=== PATIENT | female | born 1990 | race Caucasian/White ===

== ENCOUNTER → 2021-06-26 12:38 | Outpatient (CLI) | payer MEDICAID, SELFPAY ==
--- NOTE | 2021-06-26 12:45 | RAD_ITS ---
STUDY: X-RAY - LUMBAR SPINE REASON FOR EXAM: Female, 31 years old. LUMBAR SPRAIN TECHNIQUE: 5 view(s) of the lumbar spine were obtained. COMPARISON: None FINDINGS: Normal lumbar lordosis. There is no substantial scoliosis. There is a normal alignment of the vertebrae. Normal vertebral bodies and endplates. Normal disc space heights. The soft tissue structures are unremarkable. RAD/L/S Spine Min 4 Views IMPRESSION: Normal x-ray examination of the lumbar spine. Electronically Signed: Josefa Thomson MD at 15:04 EDT Tel , Service support ,
== END ==
PROVIDERS: Referring Provider Physician Assistant; Visit Provider Physician Assistant
DX: M54.5 Low back pain (principal)
CPT/HCPCS: 72110

== ENCOUNTER 2021-06-27 15:36 | Emergency (ER) | payer MEDICAID, SELFPAY ==
[2021-06-27 15:40] VITALS: BP 113/83; PULSE 96; RESP 16; TEMP 37.7; O2SAT 97; BMI 35.9
--- NOTE | 2021-06-27 16:16 | ED.VIS.BACK ---
HPI History of Present Illness Chief Complaint: Back Narrative Narrative: Patient with past history of chronic back pain, and pain management, fibromyalgia, presents with numbness of her right hip and back pain that she has had since Thursday. This was 4 days ago. She states that she presents at the suggestion of her pain management doctor. She had x-rays of her back performed yesterday. She was told that her x-rays are normal. She has been having increasing pain in her low back and buttocks. She states her right hip feels numb. She has been taking Tylenol and ibuprofen without relief. She denies any dysuria or hematuria. She states that she got over a bladder infection and a kidney stone last week. She has constant pain. At times it is worse with movement. She denies any fevers or chills. No loss of bowel or bladder. No saddle anesthesia. [facility] Medical History (Updated 06/27/21 @ 17:00 by Sonny Alvarez) Fibromyalgia History of cervical cancer History of uterine cancer Kidney stone Home Medications cyclobenzaprine 10 mg PO BID PRN #10 tab 06/27/21 [Rx Last Taken Unknown] Allergy/AdvReac Type Severity Reaction Status Date / Time amitriptyline Allergy MUSCLE Verified 06/27/21 15:39 SPASMS Bleach (Sodium Hypochlorite) Allergy Hives Verified 06/27/21 15:39 codeine Allergy Hives Verified 06/27/21 15:39 ketorolac [From Toradol] Allergy Itching Verified 06/27/21 15:39 nitrofurantoin Allergy Anaphylaxis Verified 06/27/21 15:39 [From Macrodantin] doxycycline AdvReac Vomiting Verified 06/27/21 15:39 Surgical History (Updated 06/27/21 @ 16:57 by Sonny Alvarez) History of hysterectomy Hx of cholecystectomy Social History Smoking Status: Unknown if ever smoked ROS ROS ED ROS Narrative Constitutional: No fever, no chills. HEENT: No sore throat. No neck pain. No loss of vision. No rhinorrhea. Cardiovascular: No chest pain. No palpitations. No pedal edema. Respiratory: No cough, no shortness of breath. Abdominal: No abdominal pain. No nausea. No vomiting. Genitourinary: No dysuria. No hematuria. Musculoskeletal: No myalgias. No arthralgias. Positive low back and right sciatic pain. Neurologic: No headaches. No dizziness. No lightheadedness. Positive paresthesias of right hip. Skin: No rash. No change in color. Psychiatric: No depression. No anxiety. EXAM Physical Exam Narrative Exam Narrative: Afebrile. Vital signs noted. HEENT: Normocephalic. Atraumatic. PERRL, EOMI. Neck soft and supple. No point tenderness or step off. Cardiovascular: Regular rate and rhythm. No murmurs, rubs, or gallops appreciated. Respiratory: No tachypnea. Lungs clear to auscultation bilaterally. Gastrointestinal: Abdomen soft, nontender, with normoactive bowel sounds. No rebound or guarding. Neurological: Awake. Alert. Nonfocal, nonlateralizing. DTRs equal and symmetric. Full range of motion right hip and right knee. Positive flexion and extension mechanisms intact of right hip and right knee. Palpable dorsalis pedis pulse. EHL intact bilaterally. Straight leg raising negative bilaterally. Mild tenderness to palpation right sciatic notch. Skin: No rash. Normal color. No pallor. Musculoskeletal: No pedal edema. Full range of motion extremities. No vertebral point tenderness or bony step-off. Const Vital Signs: 06/27/21 15:40 06/27/21 16:50 06/27/21 17:24 Temperature 99.8 F H Temperature Source Temporal Pulse Rate 96 Respiratory Rate 16 16 18 Blood Pressure 113/83 H Blood Pressure Mean 93 Pulse Ox 97 Oxygen Delivery Method Room Air MDM MDM MDM Narrative Medical decision making narrative: There are no red flag signs for cauda equina. I do not feel that x-rays are indicated. She has not had any trauma to her back, and additionally she states she had them performed as an outpatient yesterday. I do not feel that emergent MRI is indicated either. I was going to give her intramuscular injections of Toradol and Norflex, however she list Toradol as an allergy, although she takes oral ibuprofen. As she is in pain management, she will follow up with her pain management doctor. I do not feel narcotic pain medications are indicated. I do feel that she is having lumbar radicular signs/sciatica. I feel she be discharged safely home with follow-up to pain management and/or her primary care physician. She states that she is awaiting physical therapy approval by her insurance. She was told that she should follow up with physical therapy, and get her MRI performed. I do feel that this is more of a chronic problem as she states that she has had problems with her back since 2014. She was able to ambulate out of the emergency department. Disposition is discharged home in stable condition. Discharge Plan Triage Chief Complaint: Back ED Provider: Hayder Hudson Dx/Rx/DC Orders Clinical Impression: Right lumbar radiculopathy, Sciatica Instructions: Relieving Back Pain, Back Exercises: Hip Rotator Stretch, Back Exercises: Knee Lift, Sciatica, ED Back Pain (Acute or Chronic) Prescriptions: New cyclobenzaprine 10 mg tablet 10 mg PO BID PRN (Reason: muscle spasm) Qty: 10 RF: 0 Primary Care Provider: Care Physician,No Primary Referrals: [facility] Doctor,Out of [NON-STAFF] - Disposition Disposition: Home, Self Care Discharge Date/Time: 06/27/21 17:24
[2021-06-27 16:50] VITALS: RESP 16
[2021-06-27] MEDS: Orphenadrine 60 MG/2 ML Ampul IM (16:52)
[2021-06-27 17:24] VITALS: RESP 18
== END 2021-06-27 17:24 | disposition home or self-care (01) ==
LOC: ED 16:39
PROVIDERS: Emergency Provider Emergency Medicine
DX: M54.16 Radiculopathy, lumbar region (principal); M54.30 Sciatica, unspecified side; Z85.42 Personal history of malignant neoplasm of other parts of uterus; Z85.41 Personal history of malignant neoplasm of cervix uteri
CPT/HCPCS: 96372; 99282

== ENCOUNTER 2021-08-08 10:00 | Outpatient (RCR) | payer MEDICAID, SELFPAY ==
--- NOTE | 2021-06-13 16:44 | HP.PTEVAL_ITS ---
Patient's Visit Information JOVANNI EDMOND is a 30 year old F referred to Physical Therapy by MANDY BRAY with a diagnosis of L ankle sprain. Date of Evaluation: 06/13/21 Physical Therapist: Gage Barakat, DPT, OCS, CSCS - Visit Plan Frequency: 2-3x /Week Duration: 4-6 Weeks Plan: 2x/week for 4-6 weeks for... 1. manual mobs a, STM and PROM to R ankle progressing to AROM exercises, strength of B ankles and gait training/proprioception ex. - Subjective R ankle hairline fracture back in March due to weak ankles as they roll alot and often sometimes when just walking. Was walking to car in March stepping down a step and ankle adn foot went opposite directions and swelled up right away. Went to ER and referred to ortho. Put in a walking boot for 3 weeks and then just an alpesh bandage and airsplint for a week then just mild ankle brace adn PT. Last visit was early May. Not getting much better. Was sitting around last week and inside of leg got numby, lateral ankle still hurts alot as do both knees. Pain in the ankle is 5/10 much of time and worse to 8/10 if on it too much. House chores make it hurt. Cannot work right now. Ankle and depression keep her from working. Doesn't think she can work and may qualify for SSI due to mental issues. Sleeping OK. Hard to get into tub as she has to step in, needs someone with her. Cannot carry laundry baskets up and down steps as it hurts too much and worried about it turning on her. - Pain R ankle Pain Intensity (Out of 10): 5 Pain Intensity Range: 5, 8 - Objective R ankle brace in place and donned adn doffed I. Walks slowy back to eval room I antalgic on R. Trasnfers I. Short L step length. AROM L LE WNL. R hip and knee WFL, R ankle DF -18, tends to only movve toes with requested DF, PROM DF -6 with pain. Inv and ev slow but able actively with functional ROM and painful end range. PF painful at 45. Toes and metatarsals moving well on R, only ankle is stiff. reflexes 2/3 patella and achilles. Sensation LE WNL to gross light touch. unable to do talar tilt as it is hard for her to relax. Tender to touch lateral ankle ligaments generaly on R ankle. Only slightly swollen, - homans. 3/5 strength R ankle in comfortable ROM, 4 knee and 4- hip. L ankle 4 in all directions and 4 knee and hip. - Goals Goal 1:: 4 degrees DF adn full aROM ankle otherwise without pain Goal Time Frame: 4-6 Weeks Goal 2:: walk without gait deviations without pain Goal Time Frame: 4-6 Weeks Goal 3:: steps reciprocally without rail Goal Time Frame: 4-6 Weeks Goal 4:: I appropriate HEP for ankle strength B and proprioception. Goal Time Frame: 4-6 Weeks Goal 5:: 55 LEFS score to show improved mobility. Goal Time Frame: 4-6 Weeks - Rehabilitation Potential Physical Therapy Diagnosis: L ankle sprain and mobility deficits. Rehabilitation Potential: Fair - Anticipated Interventions Patient/Client Instruction: Educate patient on: Condition, Plan of Care For the Purpose of:: To decrease pain, To increase ROM, To improve muscle performance and motor function, To increase tolerance to activity/condition/position, To improve ability of physical actions for home/community/work/leisure Therapeutic Exercise to Include: Strength training, Balance training, Flexibilty training, Gait and locomotor training, Passive ROM, Active ROM For the Purpose of:: To decrease pain, To increase ROM, To improve nutrient delivery to tissue, To improve muscle performance and motor function, To increase tolerance to activity/condition/position, To improve ability of physical actions for home/community/work/leisure Manual Therapy Techniques to Include: Mobilization, Soft tissue mobilization For the Purpose of:: To decrease pain, To decrease swelling/inflammation, To increase ROM, To improve muscle performance and motor function, To increase tolerance to activity/condition/position Cryotherapy (ice pack, ice massage): Yes For the Purpose of:: To decrease swelling/inflammation Thank you for the opportunity to evaluate your patient. For Medicare and Medicare HMO plans, please review the plan of care and approve it. It will need to be FAXED BACK to us at [phone] for Medicare purposes. For Medicare only, by signing this I certify the plan of care. Please let me know if there are questions or concerns regarding this plan of care. Physician Signature: Date:
--- NOTE | 2021-08-08 10:56 | HP.PTREVAL ---
MANDY BRAY, It has been my pleasure to treat JOVANNI EDMOND over the last 3 visits for L ankle sprain. Please see the progress note below for an update on the physical therapy plan of care! Subjective: Working with doctor to get into neurologist for AGUILA and dizzyness. One fall a few weeks ago and had hip xray which was OK. LB also hurting also and using TENS at [facility] and . Is in pain management for her LB. Will see Dr. Gomes soon. Ankle is a little better. Brace is very helpful adn it is a lace up. Tightening it helps on painful days. To foot doctor on 08/22. Pain in ankle this week has been up to 03/04. Can now sit cross legged. Doing the walking she needs to do. Has been really sick and unable to make it into therapy alot. Doing ex at home with OTB x10 2x/day. Unable to run on ankle and it limits slightly. Wants to continue weekly to progress HEP and work on ankle. Objective/Function: -3 degrees DF R, full PF, Ev and inv functional. no c/o pain with these movements. Strength is 4- inv and ev and DF, 4 - PF on that side. walking slow with short steps but no antalgia today. Patient has missed a lot of visits due to other maladies and is appropriate to cotninue weekly for progression of ex. fair prognosis toward same goals. 4 more weeks. Plan Plan: weekly x 4 for... 1. manual PROM DF and rollout calf. 2. progress stretngth and prooprioception and gait R ankle Balance/Gait/Functional tests - Balance/Special Test Scores Lower Extremity Functional Score: 38 Goals Goal 1:: 4 degrees DF adn full aROM ankle otherwise without pain Goal Time Frame: 4-6 Weeks Goal Progress: Progressing Goal 2:: walk without gait deviations without pain Goal Time Frame: 4-6 Weeks Goal Progress: Progressing Goal 3:: steps reciprocally without rail Goal Time Frame: 4-6 Weeks Goal Progress: NT Goal 4:: I appropriate HEP for ankle strength B and proprioception. Goal Time Frame: 4-6 Weeks Goal Progress: Progressing Goal 5:: 55 LEFS score to show improved mobility. Goal Time Frame: 4-6 Weeks Goal Progress: Progressing Anticipated Interventions Patient/Client Instruction: Educate patient on: Condition, Plan of Care For the Purpose of:: To decrease pain, To increase ROM, To improve muscle performance and motor function, To increase tolerance to activity/condition/position, To improve ability of physical actions for home/community/work/leisure Therapeutic Exercise to Include: Strength training, Balance training, Flexibilty training, Gait and locomotor training, Passive ROM, Active ROM For the Purpose of:: To decrease pain, To increase ROM, To improve nutrient delivery to tissue, To improve muscle performance and motor function, To increase tolerance to activity/condition/position, To improve ability of physical actions for home/community/work/leisure Manual Therapy Techniques to Include: Mobilization, Soft tissue mobilization For the Purpose of:: To decrease pain, To decrease swelling/inflammation, To increase ROM, To improve muscle performance and motor function, To increase tolerance to activity/condition/position Cryotherapy (ice pack, ice massage): Yes For the Purpose of:: To decrease swelling/inflammation Please do not hesitate to contact me at [phone] by phone or if you have questions or concerns regarding this new plan of care! Sincerely, Gage Barakat, DPT, OCS, CSCS
--- NOTE | 2021-09-30 07:30 | HP.PT.NRP ---
JOVANNI EDMOND was seen in my office for initial evaluation on 06/13/21. The following Plan of Care was established for this patient: Initial Frequency: 2-3x /Week Initial Duration: 4-6 Weeks Patient/Client Instruction: Educate patient on: Condition, Plan of Care For the Purpose of:: To decrease pain, To increase ROM, To improve muscle performance and motor function, To increase tolerance to activity/condition/position, To improve ability of physical actions for home/community/work/leisure Therapeutic Exercise to Include: Strength training, Balance training, Flexibilty training, Gait and locomotor training, Passive ROM, Active ROM For the Purpose of:: To decrease pain, To increase ROM, To improve nutrient delivery to tissue, To improve muscle performance and motor function, To increase tolerance to activity/condition/position, To improve ability of physical actions for home/community/work/leisure Manual Therapy Techniques to Include: Mobilization, Soft tissue mobilization For the Purpose of:: To decrease pain, To decrease swelling/inflammation, To increase ROM, To improve muscle performance and motor function, To increase tolerance to activity/condition/position Cryotherapy (ice pack, ice massage): Yes For the Purpose of:: To decrease swelling/inflammation This patient was last seen in our office 08/08/21. Pertinent comments regarding their Physical therapy will appear below: Pt seen 3 visits of POC and cancelled numerous visits including the last 3. at this point, it has been over 6 weeks and I will discontinue due to nonattendance. At this point I will be discontinuing this patient from physical therapy. I would be happy to see this patient again in the future if found appropriate by the physician. Thank you! Gage Barakat, DPT, OCS, CSCS Balance/Gait/Functional tests - Balance/Special Test Scores Lower Extremity Functional Score: 38
== END 2021-08-08 19:00 | disposition home or self-care (01) ==
LOC: PT 10:00
DX: S93.402D Sprain of unspecified ligament of left ankle, subsequent encounter (principal)
CPT/HCPCS: 97110; 97140; 97161; 97530

== ENCOUNTER 2021-09-22 17:37 | Emergency (ER) | payer MEDICAID, SELFPAY ==
[2021-09-22 17:37] VITALS: BP 140/107; PULSE 115; RESP 16; TEMP 36.4; O2SAT 97; BMI 28.8
[2021-09-22 18:01] VITALS: RESP 16
--- NOTE | 2021-09-22 18:01 | CT_ITS ---
STUDY: CT LUMBAR SPINE WITHOUT CONTRAST REASON FOR EXAM: Female, 31 years old. Fall back injury left lower extremity numbness and injury RADIATION DOSAGE (If Supplied By Facility): CTDIvol = ( 31.91 ) mGy, DLP = ( 3089.29 ) mGycm TECHNIQUE: CT of the lumbar spine was performed without contrast. Sagittal and coronal images were reconstructed. Individualized dose optimization techniques were used for this CT. COMPARISON: None FINDINGS: Lumbar spine is intact and aligned with normal mineralization, paraspinous soft tissues and SI joints. There are minor age appropriate changes. Aorta is of normal diameter. Uterus is removed. Canal, foramina and lateral recesses are patent. CT/Spine Lumbar without Contrast IMPRESSION: 1. Normal lumbar spine. 2. No acute injury. 3. No neural compression. Electronically Signed: Jerry Aguiar MD at 20:03 EST Tel , Service support ,
--- NOTE | 2021-09-22 18:03 | EKG12_ITS ---
Test Reason : Blood Pressure : / mmHG Vent. Rate : 105 BPM Atrial Rate : 105 BPM P-R Int : 134 ms QRS Dur : 070 ms QT Int : 306 ms P-R-T Axes : 027 007 015 degrees QTc Int : 404 ms Sinus tachycardia Nonspecific T wave abnormality Abnormal ECG Confirmed by ELVIE SHARP, LEROY ([id number]), editor managing newspaper JAYDEN SANCHES ([id number]) on 09/24/2021 9:18:13 AM Referred By: VICKY/JT Confirmed By:LEROY BERMEO MD
--- NOTE | 2021-09-22 18:04 | EDS_ITS ---
HPI History of Present Illness Chief Complaint: Abd Pain Informant: patient Narrative Narrative: Patient presents with several complaints. Abdominal pain for the last week, and she woke up in the middle of the night this past night, more than 12 hours prior to arrival here, with left lower extremity complete numbness and weakness, she states she has been dragging it behind her all day. She states she fell out of bed last night landing on her buttocks. Then when she went to sleep she woke up with this. She states the last time this happened, she was diagnosed with conversion disorder and it happened just like this. She was admitted to the hospital for relaxation from my stress and anxiety in order to get it to go away. She also states she was diagnosed with a TIA and had an MRI earlier this year at [facility]. Last week, she states she was at [facility] and had a CT abdomen/pelvis as well as some other tests and diagnosed with urinary tract infection, placed on yeast infection treatment as well as antibiotics throughout her lower abdomen, achy. She has chronic urinary problems and frequent urinary tract infections, often has to self cath at home, she states are no different and she sees urology here for that, she denies anything new or different there. She has history of endometriosis but states she had a hysterectomy. She also has a history of fibromyalgia and is on some mental health medications. Denies any other injuries. Denies a headache, speech problems, facial numbness, slurred speech, or arm symptoms. [facility] Medical History Anxiety Back pain Bipolar disorder Conversion disorder Depression Fibromyalgia History of cervical cancer Kidney stone Home Medications acidophilus-pectin, citrus [Acidophilus Probiotic] 1 cap PO DAILY 09/22/21 [History Last Taken Unknown] albuterol sulfate [Ventolin HFA] 2 puff INHALATION Q6H PRN 09/22/21 [History Last Taken Unknown] aripiprazole [Abilify] 5 mg PO QHS 09/22/21 [History Last Taken Unknown] cephalexin 250 mg PO QHS 09/22/21 [History Last Taken Unknown] d-mannose 1,000 mg PO DAILY 09/22/21 [History Last Taken Unknown] dicyclomine 20 mg PO DAILY PRN PRN 09/22/21 [History Last Taken Unknown] diphenhydramine HCl [Benadryl] 50 mg PO Q6H PRN 09/22/21 [History Last Taken Unknown] dupilumab [Dupixent Syringe] 300 mg SUBCUT X1 09/22/21 [History Last Taken Unknown] erenumab-aooe [Aimovig Autoinjector] 70 mg SUBCUT QMONTH 09/22/21 [History Last Taken Unknown] escitalopram oxalate [Lexapro] 20 mg PO DAILY 09/22/21 [History Last Taken Unknown] fluticasone propionate 1 spray INTRANASAL DAILY 09/22/21 [History Last Taken Unknown] lorazepam [Ativan] 0.5 mg PO BID PRN 09/22/21 [History Last Taken Unknown] meclizine 12.5 mg PO BID PRN 09/22/21 [History Last Taken Unknown] mirtazapine [Remeron] 15 mg PO QHS 09/22/21 [History Last Taken Unknown] nortriptyline 10 mg PO QHS 09/22/21 [History Last Taken Unknown] omeprazole 40 mg PO DAILY 09/22/21 [History Last Taken Unknown] ondansetron HCl [Zofran] 4 mg PO Q8H PRN 09/22/21 [History Last Taken Unknown] rosuvastatin 5 mg PO QHS 09/22/21 [History Last Taken Unknown] tizanidine 4 mg PO Q8H PRN 09/22/21 [History Last Taken Unknown] Allergy/AdvReac Type Severity Reaction Status Date / Time amitriptyline Allergy MUSCLE Verified 09/22/21 17:40 SPASMS Bleach (Sodium Hypochlorite) Allergy Hives Verified 09/22/21 17:40 codeine Allergy Hives Verified 09/22/21 17:40 ketorolac [From Toradol] Allergy Itching Verified 09/22/21 17:40 nitrofurantoin Allergy Anaphylaxis Verified 09/22/21 17:40 [From Macrodantin] doxycycline AdvReac Vomiting Verified 09/22/21 17:40 Surgical History History of hysterectomy Hx of cholecystectomy Social History Smoking Status: Former smoker ROS ROS ED Constitutional Constitutional ED: Denies chills or fever(s) Eyes Eyes: Denies change in vision or diplopia ENT ENT ED: Denies rhinorrhea or sore throat Cardiovascular Cardiovascular: Denies chest pain or palpitations Respiratory/Chest Respiratory/Chest: Denies cough or dyspnea Gastrointestinal Gastrointestinal: Reports abdominal pain; Denies diarrhea, nausea or vomiting Genitourinary Genitourinary ED: Reports as per HPI; Denies dysuria or hematuria Musculoskeletal Musculoskeletal: Reports back pain; Denies neck pain Integumentary Denies abscess or rash Neurologic Neurologic: Denies headache(s), paresthesias or weakness Psychiatric Psychiatric: Reports anxiety; Denies suicidal thoughts EXAM Physical Exam Const Vital Signs: 09/22/21 17:37 09/22/21 18:01 Temperature 97.5 F L Temperature Source Temporal Pulse Rate 115 H Respiratory Rate 16 16 Blood Pressure 140/107 H Blood Pressure Mean 118 Pulse Ox 97 Oxygen Delivery Method Room Air Room Air Positive well nourished and well developed General Appearance ED: well developed and NAD HEENT Reports moist mucous membranes normocephalic and atraumatic Eyes PERRL and EOMs intact bilaterally Neck full ROM and supple Resp normal respiratory effort and clear to auscultation bilaterally Cardio regular rate, regular rhythm and no murmurs GI non-tender and non-distended Auscultation: normoactive bowel sounds Palpation: soft Back/Spine no CVA tenderness General Back: other FROM Extremity normal to inspection General Extremety ED: Negative for edema, pulses abnormal or tenderness General Extremity: Negative for edema or pulses abnormal Neuro oriented x3 and CN's II-XII intact bilaterally Neuro Narrative: Patient does not feel touch and pinprick to her left lower extremity in its entirety. Excellent 2+/4 dorsalis pedis pulse. Normal coloration with brisk cap refill. No clonus. Toes downgoing. She has a brace on her right ankle due to a remote fracture she states. Normal speech, no aphasia. No hemiinattention. Initially patient extends and locks knee, resisting my attempts to move it. Then, she is weak but able to move it a little. Reflexes are normal and symmetric in both lower extremities. Sensorium / Orientation: awake and alert Psych Negative for denies hallucinations Psych Narrative: flat affect Skin no rashes or lesions noted and no wounds MDM MDM MDM Narrative Medical decision making narrative: Patient's work-up here is normal. This includes CTA of the head and neck, and CT of her lower back which showed no fractures or acute abnormalities. Prior to these being even obtained, the patient was ambulatory to and from the bathroom without any difficulty or any apparent weakness of her leg. She was given Bentyl for her abdominal pain since she states a CT was performed last week for this and it was normal. It did not help and she was asking for something more for pain. In reviewing some of her records from [facility] earlier in 2020, she was requesting narcotics repeatedly from them, for headaches. Thes e were denied. She was being worked up for TIA given unilateral left-sided numbness in her arm, she had a normal CTA then as well, as well as an MRI that was completely normal, and an echocardiogram that was normal. I did not receive a discharge summary with her final diagnosis although it does say in their medical decision making that they were considering complex migraine and conversion disorder in the differential, but this was prior to negative MRI resulting. She had multiple CT scans of the abdomen/pelvis at [facility], November, April, June, and 5 days ago, all of which were negative for anything acute. She does not have a leukocytosis here, is nontender, and I do not think she needs to have CT abd repeated. The ED doctor documented that she has a history of chronic abdominal pain, which the patient did not admit to me. Furthermore, a couple days prior to her being there, she went to a different emergency department in [place] which is where she was started on antibiotics. She told that doctor as she told me that she does not think she has a urinary tract infections antibiotics did not do anything, which I do not disagree with necessarily. We witnessed this patient walking to the bathroom without any apparent difficulty. She states that on wrong him that she was dragging her leg. She states that her doctor treats her with Ativan when this happens, and she is expe cting to be admitted to the hospital. Unfortunately we do not have any beds at this exact time, and from my experience throughout this shift, I have state does not have any beds, [facility] and [facility] in [place] does not have any beds. I do not think this patient needs to be admitted this time, she has the same presentation as she did last time with a normal MRI, she has had multiple CAT scans throughout the year for what appears to be chronic abdominal pain, I discussed with her that I will not be treating her with any narcotics today, she states she does not require narcotics, yet she has allergies to Toradol, codeine, and states that the Bentyl I gave her did not help at all. She states she can take Tylenol and ibuprofen okay but she has been trying those and they are not helping. I told her that she could certainly have a dose of ibuprofen here before she is discharged since she has a history of fatty liver disease and should limit her intake of acetaminophen. After discussing with the patient for some time, I agreed to allow her to have Ativan 1 mg orally prior to discharge. Also discussed being careful if indeed her left leg has abnormal sensation in it until she can follow-up with her doctor. I think discharge instructions for conversion disorder are completely appropriate and I advise following up with her psychiatrist regarding this episode. Lab Data Attestation: I reviewed the patient's lab results. Labs: Laboratory Results - last 24 hr 09/22/21 09/22/21 09/22/21 18:14 18:30 18:30 WBC 6.4 RBC 4.63 Hgb 14.0 Hct 40.7 MCV 87.9 MCH 30.2 MCHC 34.4 RDW Std Deviation 44.1 H RDW Coeff of Romario 13.6 Plt Count 249 MPV 11.6 Immature Gran % (Auto) 0.300 Neut % (Auto) 56.5 Lymph % (Auto) 35.9 [place] % (Auto) 5.8 Eos % (Auto) 1.3 Baso % (Auto) 0.2 Absolute Neuts (auto) 3.6 Absolute Lymphs (auto) 2.29 Nucleated RBC % 0 Sodium 138 Potassium 4.1 Chloride 107 Carbon Dioxide 22.0 Anion Gap 9 BUN 9 Creatinine 0.90 Estim Creat Clear Calc 94.65 Est GFR (MDRD) Af Amer 94 Est GFR (MDRD) Non-Af 78 BUN/Creatinine Ratio 10.0 Glucose 109 H Calcium 9.7 Urine Color Urine Clarity Urine pH Ur Specific [place] Urine Protein Urine Glucose (UA) Urine Ketones Urine Occult Blood Urine Nitrite Urine Bilirubin Urine Urobilinogen Ur Leukocyte Esterase Urine RBC Urine WBC Ur Squamous Epith Cells Urine Bacteria Urine Mucus POC Glucose 98 09/22/21 19:37 WBC RBC Hgb Hct MCV MCH MCHC RDW Std Deviation RDW Coeff of Romario Plt Count MPV Immature Gran % (Auto) Neut % (Auto) Lymph % (Auto) [place] % (Auto) Eos % (Auto) Baso % (Auto) Absolute Neuts (auto) Absolute Lymphs (auto) Nucleated RBC % Sodium Potassium Chloride Carbon Dioxide Anion Gap BUN Creatinine Estim Creat Clear Calc Est GFR (MDRD) Af Amer Est GFR (MDRD) Non-Af BUN/Creatinine Ratio Glucose Calcium Urine Color Yellow Urine Clarity Clear Urine pH 8.0 Ur Specific [place] 1.010 Urine Protein Negative Urine Glucose (UA) Normal Urine Ketones Negative Urine Occult Blood Negative Urine Nitrite Negative Urine Bilirubin Negative Urine Urobilinogen Normal Ur Leukocyte Esterase Negative Urine RBC 0 SEEN Urine WBC 0 SEEN Ur Squamous Epith Cells 0 SEEN Urine Bacteria 0 SEEN Urine Mucus 0 SEEN POC Glucose Radiography Diagnostic Testing: Clinical Impression(s) from Imaging Studies Lumbar Spine CT 09/22/21 18:01 IMPRESSION: 1. Normal lumbar spine. 2. No acute injury. 3. No neural compression. Electronically Signed: Jerry Aguiar MD at 20:03 EST Tel , Service support , Head/Neck CTA 09/22/21 19:16 IMPRESSION: Patent craniocervical arteries. Normal brain. Electronically Signed: Jerry Aguiar MD at 20:06 EST Tel , Service support , EKG Initial EKG: Attestation: I personally reviewed and interpreted this EKG as follows: Interpretation: Sinus Rhythm and No Acute Injury Pattern Discharge Plan Triage Chief Complaint: Abd Pain ED Provider: Adelso Jackson Dx/Rx/DC Orders Clinical Impression: Left leg numbness, Chronic abdominal pain Instructions: Abdominal Pain, ED Conversion Disdr Conversion Reac Prescriptions: No Action diphenhydramine HCl [Benadryl] 50 mg Capsule 50 mg PO Q6H PRN (Reason: Allergic Symptoms) RF: 0 ondansetron HCl [Zofran] 4 mg Tablet 4 mg PO Q8H PRN (Reason: Nausea) RF: 0 cephalexin 250 mg Tablet 250 mg PO QHS RF: 0 meclizine 12.5 mg Tablet 12.5 mg PO BID PRN (Reason: Dizziness) RF: 0 omeprazole 40 mg Capsule,Delayed Release(Dr/Ec) 40 mg PO DAILY RF: 0 lorazepam [Ativan] 0.5 mg Tablet 0.5 mg PO BID PRN (Reason: Anxiety) RF: 0 dicyclomine 20 mg Tablet 20 mg PO DAILY PRN PRN (Reason: Abdominal Pain) RF: 0 nortriptyline 10 mg Capsule 10 mg PO QHS RF: 0 mirtazapine [Remeron] 15 mg Tablet 15 mg PO QHS RF: 0 albuterol sulfate [Ventolin HFA] 90 mcg/actuation Hfa Aerosol Inhaler 2 puff INHALATION Q6H PRN (Reason: Shortness Of Breath) RF: 0 fluticasone propionate 50 mcg/actuation [place],Suspension 1 spray INTRANASAL DAILY RF: 0 escitalopram oxalate [Lexapro] 20 mg Tablet 20 mg PO DAILY RF: 0 aripiprazole [Abilify] 5 mg Tablet 5 mg PO QHS RF: 0 rosuvastatin 5 mg Tablet 5 mg PO QHS RF: 0 tizanidine 4 mg Capsule 4 mg PO Q8H PRN (Reason: Back Pain) RF: 0 acidophilus-pectin, citrus [Acidophilus Probiotic] 100 million cell-10 mg Capsule 1 cap PO DAILY RF: 0 Dupixent Syringe 300 mg/2 mL Syringe 300 mg SUBCUT X1 RF: 0 Aimovig Autoinjector 70 mg/mL Auto-Injector 70 mg SUBCUT QMONTH RF: 0 d-mannose 500 mg Capsule 1,000 mg PO DAILY RF: 0 Primary Care Provider: Elizabeth Spear NP Referrals: Elizabeth Spear NP, [facility] [Primary Care Provider] - 3-5 Days Disposition Disposition: Home, Self Care
[2021-09-22 18:20] LABS: Bedside Glucose 98 mg/dL (70-110)
[2021-09-22] MEDS: 0.9% Normal Saline 1,000 ML 999 ML IV (18:37)
[2021-09-22] MEDS: Dicyclomine 20 MG/2 ML Vial IM (18:38)
[2021-09-22 18:43] LABS: Absolute Lymphocyte Count 2.29 X10^3/uL (0.83-4.51); Absolute Neutrophil Count 3.6 X10^3/uL (2.0-7.7); Basophil# 0.01 X10^3/uL; Basophil% 0.2 % (0-1); Eosinophil# 0.08 X10^3/uL; Eosinophils% 1.3 % (0-5); Hematocrit 40.7 % (37-47); Lymphocyte # 2.29 X10^3/ul (0.83-4.51); Lymphocyte % 35.9 % (19-41); Mean Corp Hgb Conc 34.4 g/dL (32-36); Mean Corpuscular Hgb 30.2 pg (27.0-32.0); Mean Corpuscular Volume 87.9 fL (81-99); Mean Platelet Vol. 11.6 fl (6.2-12.0); Monocyte# 0.37 X10^3/uL; Monocyte% 5.8 % (0-10); NRBC Flagged by Analyzer 0 % (0-5); Neutrophil % 56.5 % (47-70); Platelet Count 249 K/mm3 (150-450); RBC Distribution Width CV 13.6 % (11.6-14.6); RBC Distribution Width SD 44.1 fl (35.1-43.9); Red Blood Count 4.63 M/mm3 (4.2-5.4); White Blood Count 6.4 K/mm3 (4.4-11.0)
[2021-09-22 18:58] LABS: Anion Gap 9 (5-15); BUN 9 mg/dL (7-18); Calcium,Total 9.7 mg/dL (8.5-10.1); Chloride 107 mmol/L (98-107); EST Glomerular Filtration Rate 78 mL/min (>60); Est Glom Filt Rate - Afr Amer 94 mL/min (>60); Estimated Creatinine Clearance 94.65 ml/min; Glucose 109 mg/dL (74-106); Potassium 4.1 mmol/L (3.5-5.1); Sodium Level 138 mmol/L (136-145)
--- NOTE | 2021-09-22 19:16 | CT_ITS ---
STUDY: CTA HEAD AND NECK WITH CONTRAST REASON FOR EXAM: Female, 31 years old. LLE weak/numb RADIATION DOSAGE (If Supplied By Facility): CTDIvol = ( 31.91 ) mGy, DLP = ( 3089.29 ) mGycm TECHNIQUE: CT angiography was performed with a multi-detector CT scanner. Data acquisition was obtained from the skull base through the vertex following intravenous administration of . MIP images were reconstructed from the axial data set. Post-processing of the angiographic images was performed, with multiplanar reformation and 3D reconstruction. CT head without contrast Individualized dose optimization techniques were used for this CT. COMPARISON: No relevant priors. FINDINGS: Normal bilateral petrous carotid arteries. Normal right cavernous carotid artery with a normal supraclinoid bifurcation. Normal left cavernous carotid artery with a normal supraclinoid bifurcation. Normal right A1 segments of the anterior cerebral artery. Normal left A1 segments of the anterior cerebral artery. Normal intact anterior communicating artery (ACOM). Normal bilateral A2 segments of the anterior cerebral arteries. Normal right M1 and M2 segments of the middle cerebral arteries, with a normal M1 bifurcation. Normal left M1 and M2 segments of the middle cerebral arteries, with a normal M1 bifurcation. Normal right posterior communicating artery (PCOM). Normal left posterior communicating artery (PCOM). Normal bilateral vertebral arteries. Normal basilar artery with a normal basilar bifurcation. The visualized bilateral superior cerebellar (SCA) arteries are normal. Normal bilateral P1, P2 and visualized P3 segments of the posterior cerebral arteries. There is no demonstrated aneurysm of the [place] of [place]. There is no demonstrated abnormality of the visualized brain. AORTIC ARCH: Normal visualized aortic arch. Normal origins of the brachiocephalic, left common carotid, and left subclavian arteries. RIGHT CAROTID ARTERIES: Normal right common carotid artery (CCA). Normal right common carotid bulb. Normal origin of the right internal carotid (ICA) artery without a hemodynamically significant stenosis. Normal visualized cervical portion of the right internal carotid artery. Normal origin of the right external carotid artery (ECA). LEFT CAROTID ARTERIES: Normal left common carotid artery (CCA). Normal left common carotid bulb. Normal origin of the left internal carotid (ICA) artery without a hemodynamically significant stenosis. Normal visualized cervical portion of the left internal carotid artery. Normal origin of the left external carotid artery (ECA). VERTEBRAL ARTERIES: Normal bilateral vertebral arteries. CT/CTA Head AND Neck W/ Contrast IMPRESSION: Patent craniocervical arteries. Normal brain. Electronically Signed: Jerry Aguiar MD at 20:06 EST Tel , Service support ,
[2021-09-22 19:42] LABS: Bacteria 0 SEEN /hpf (None Seen); Mucous, Urine 0 SEEN /hpf (<or=2+); Red Blood Cells-Urine 0 SEEN /hpf (0-5); Squamous Epithelial Cells - UA 0 SEEN /hpf (5-10); White Blood Cells 0 SEEN /hpf (0-5)
[2021-09-22 19:44] LABS: Color, Urine Yellow (Yellow); Glucose, Dipstick Normal (Normal); Ketone-Dipstick Negative (Negative); Leukocyte Esterase-Dipstick Negative /ul (Negative); Nitrite-Dipstick Negative (Negative); Occult Blood-Urine Negative /ul (Negative); Protein-Dipstick Negative (Negative); Urine Bilirubin Dipstick Negative (Negative); Urine Clarity Clear (Clear); Urine Urobilinogen Normal (Normal)
[2021-09-22] MEDS: Ibuprofen 400 MG Tablet 800 MG PO (21:27)
[2021-09-22] MEDS: LORazepam 1 MG Tablet PO (21:27)
[2021-09-22 21:30] VITALS: BP 112/60; PULSE 78; RESP 18; O2SAT 98
== END 2021-09-22 21:31 | disposition home or self-care (01) ==
PROVIDERS: Emergency Provider Emergency Medicine; PCP Nurse Practitioner Primary Care
DX: R20.0 Anesthesia of skin (principal); R10.9 Unspecified abdominal pain; G89.29 Other chronic pain; F41.9 Anxiety disorder, unspecified; W06.XXXA Fall from bed, initial encounter; Z79.899 Other long term (current) drug therapy; Z85.41 Personal history of malignant neoplasm of cervix uteri; Z87.891 Personal history of nicotine dependence
CPT/HCPCS: 70496; 70498; 72131; 80048; 81001; 82962; 85025; 93005; 96360; 96361; 96372; 99285; J7030; P9612; Q9967; A4216

== ENCOUNTER 2021-11-26 16:50 | Outpatient (CLI) | payer MEDICAID, SELFPAY ==
[2021-11-29 14:00] LABS: HPV Reflexed? NOT INDICATED
== END 2021-11-26 23:59 | disposition short-term general hospital (02) ==
LOC: LABSPEC 16:52
PROVIDERS: PCP Nurse Practitioner Primary Care; Referring Provider Obstetrics & Gynecology; Visit Provider Obstetrics & Gynecology
DX: Z12.4 Encounter for screening for malignant neoplasm of cervix (principal)
CPT/HCPCS: 88175; G0145

== ENCOUNTER 2021-12-10 14:36 | Outpatient (CLI) | payer MEDICAID, SELFPAY ==
--- NOTE | 2021-12-10 14:44 | US_ITS ---
History: HEMATURIA EXAMINATION: US Kidney(s) complete (eg, kidneys and bladder) TECHNIQUE: Fitzgerald scale and color doppler images were obtained of the kidneys. COMPARISON: None FINDINGS: RIGHT KIDNEY: 10.5 cm in length. No focal parenchymal mass, hydronephrosis, nephrolithiasis, or perinephric fluid collection is noted. LEFT KIDNEY: 10.7 cm in length. No focal parenchymal mass, hydronephrosis, nephrolithiasis, or perinephric fluid collection is noted. URINARY BLADDER: Unremarkable. US/Kidney and Bladder IMPRESSION: Negative renal ultrasound. at 1558 Reported and signed by: Nilesh Motta MD Electronically Signed: Nilesh Motta MD at 15:57 EST ,
== END 2021-12-10 23:59 | disposition home or self-care (01) ==
LOC: US 14:38
PROVIDERS: PCP Nurse Practitioner Primary Care; Referring Provider Urology; Visit Provider Urology
DX: R31.9 Hematuria, unspecified (principal); M54.9 Dorsalgia, unspecified
CPT/HCPCS: 76770

== ENCOUNTER 2021-12-12 23:39 | Emergency (ER) | payer MEDICAID, SELFPAY ==
[2021-12-12 23:41] VITALS: BP 164/93; PULSE 97; RESP 16; TEMP 36.2; O2SAT 100; BMI 37.1
--- NOTE | 2021-12-12 23:51 | CT_ITS ---
STUDY: CT ABDOMEN AND PELVIS WITHOUT CONTRAST REASON FOR EXAM: Female, 31 years old. LLQ pain RADIATION DOSAGE (If Supplied By Facility): CTDIvol = ( 16.13 ) mGy, DLP = ( 814.05 ) mGycm TECHNIQUE: Transaxial images were obtained from the dome of the diaphragm to the symphysis pubis without oral contrast, and without intravenous contrast. Sagittal and coronal images were reconstructed. Individualized dose optimization techniques were used for this CT. COMPARISON: None. FINDINGS: The visualized lung bases are unremarkable. The visualized portions of the heart are within normal limits. There is decreased attenuation of the liver consistent with steatosis. Normal gallbladder and extrahepatic biliary system. Normal spleen. Normal pancreas. Normal bilateral adrenal glands. There is 2 mm stone in the right kidney without hydronephrosis. There is 3 mm stone in the left kidney without hydronephrosis. Normal visualized stomach. Normal small intestine. Normal colon. The appendix is visualized and appears normal. Normal abdominal aorta. Normal inferior vena cava. Normal retroperitoneum. Normal urinary bladder. Normal abdominal wall. Normal osseous structures. CT/Abdomen/Pelvis without Cont IMPRESSION: There is 2 mm stone in the right kidney without hydronephrosis. There is 3 mm stone in the left kidney without hydronephrosis. Electronically Signed: Michelle Wilkinson MD at 0:40 EST ,
--- NOTE | 2021-12-12 23:54 | EDS_ITS ---
HPI History of Present Illness Chief Complaint: Abd Pain Informant: patient Onset/Context/Timing Onset: Today Current Severity: Moderate Maximum Severity: Moderate Narrative Narrative: Patient presents with left lower quadrant abdominal pain. She states pain started this afternoon and has been waxing and waning. She reports having some mild vaginal spotting although had a full hysterectomy in 2014. Patient does have history of kidney stones. She does report nausea and vomiting secondary to pain. No fever or chills. No diarrhea or constipation. She took Tylenol earlier today for pain. [facility] Medical History Anxiety Back pain Bipolar disorder Chronic interstitial cystitis Conversion disorder Depression Endometriosis Fibromyalgia History of cervical cancer Intermittent self-catheterization of bladder Kidney stone Migraine Peptic ulcer of stomach Home Medications acidophilus-pectin, citrus [Acidophilus Probiotic] 1 cap PO DAILY 09/22/21 [History Last Taken Unknown] albuterol sulfate [Ventolin HFA] 2 puff INHALATION Q6H PRN 09/22/21 [History Last Taken Unknown] aripiprazole [Abilify] 5 mg PO QHS 09/22/21 [History Last Taken Unknown] cephalexin 250 mg PO QHS 09/22/21 [History Last Taken Unknown] d-mannose 1,000 mg PO DAILY 09/22/21 [History Last Taken Unknown] dicyclomine 20 mg PO DAILY PRN PRN 09/22/21 [History Last Taken Unknown] diphenhydramine HCl [Benadryl] 50 mg PO Q6H PRN 09/22/21 [History Last Taken Unknown] dupilumab [Dupixent Syringe] 300 mg SUBCUT X1 09/22/21 [History Last Taken Unknown] erenumab-aooe [Aimovig Autoinjector] 70 mg SUBCUT QMONTH 09/22/21 [History Last Taken Unknown] escitalopram oxalate [Lexapro] 20 mg PO DAILY 09/22/21 [History Last Taken Unknown] fluticasone propionate 1 spray INTRANASAL DAILY 09/22/21 [History Last Taken Unknown] lorazepam [Ativan] 0.5 mg PO BID PRN 09/22/21 [History Last Taken Unknown] meclizine 12.5 mg PO BID PRN 09/22/21 [History Last Taken Unknown] mirtazapine [Remeron] 15 mg PO QHS 09/22/21 [History Last Taken Unknown] nortriptyline 10 mg PO QHS 09/22/21 [History Last Taken Unknown] omeprazole 40 mg PO DAILY 09/22/21 [History Last Taken Unknown] ondansetron HCl [Zofran] 4 mg PO Q8H PRN 09/22/21 [History Last Taken Unknown] rosuvastatin 5 mg PO QHS 09/22/21 [History Last Taken Unknown] tizanidine 4 mg PO Q8H PRN 09/22/21 [History Last Taken Unknown] estradiol 0.5 mg tablet 0.5 mg PO DAILY 23 Days #30 tab 11/26/21 [Rx Last Taken Unknown] hydrocodone-acetaminophen 1 tab PO Q6H PRN 3 Days #10 tab 12/13/21 [Rx Last Taken Unknown] Allergy/AdvReac Type Severity Reaction Status Date / Time amitriptyline Allergy MUSCLE Verified 09/22/21 17:40 SPASMS Bleach (Sodium Hypochlorite) Allergy Hives Verified 09/22/21 17:40 codeine Allergy Hives Verified 09/22/21 17:40 ketorolac [From Toradol] Allergy Itching Verified 09/22/21 17:40 nitrofurantoin Allergy Anaphylaxis Verified 09/22/21 17:40 [From Macrodantin] doxycycline AdvReac Vomiting Verified 09/22/21 17:40 Family History Mother Hypertension Migraine Grandmother CVA (cerebral vascular accident) Grandfather Diabetes Father Myocardial infarction Surgical History History of hysterectomy Hx of cholecystectomy S/P laparoscopic surgery Social History Smoking Status: Former smoker alcohol intake: current details: occasionally substance use type: does not use caffeine: Yes what type of physical activity do you participate in: walking frequency: 1-2 times per week seatbelt use: always do you feel safe at home: Yes additional social history: Single ROS ROS ED Constitutional Constitutional ED: Denies chills or fever(s) Eyes Eyes: Denies change in vision ENT ENT ED: Denies sore throat Cardiovascular Cardiovascular: Denies chest pain Respiratory/Chest Respiratory/Chest: Denies cough or dyspnea Gastrointestinal Gastrointestinal: Reports abdominal pain, nausea and vomiting; Denies constipation or diarrhea Genitourinary Genitourinary ED: Denies dysuria or urinary frequency Musculoskeletal Musculoskeletal: Denies back pain Integumentary Denies rash Neurologic Neurologic: Denies headache(s) or weakness Allergic/Immunologic Allergic/Immunologic ED: Denies urticaria EXAM Physical Exam Const Vital Signs: 12/12/21 23:41 Temperature 97.2 F L Temperature Source Oral Pulse Rate 97 Respiratory Rate 16 Blood Pressure 164/93 H Blood Pressure Mean 116 Pulse Ox 100 Oxygen Delivery Method Room Air Positive well nourished and well developed General Appearance ED: well developed HEENT Reports moist mucous membranes Eyes PERRL and EOMs intact bilaterally Neck no lymphadenopathy and supple Chest Wall inspection of chest normal and palpation of chest normal Resp normal respiratory effort and clear to auscultation bilaterally Cardio regular rate and regular rhythm GI Auscultation: hypoactive bowel sounds Palpation: soft and tender LLQ Narrative: Pelvic examination reveals no vaginal bleeding or lesions. Extremity normal to inspection Neuro oriented x3 Sensorium / Orientation: alert Psych mental status grossly normal Skin no rashes or lesions noted MDM MDM MDM Narrative Medical decision making narrative: Patient given morphine and Zofran. She was given p.o. ibuprofen. Lab work, CT flank, urinalysis ordered. Lab Data Attestation: I reviewed the patient's lab results. Labs: Laboratory Results - last 24 hr 12/12/21 12/12/21 12/13/21 23:50 23:50 00:08 WBC 7.4 RBC 4.12 L Hgb 12.5 Hct 35.2 L MCV 85.4 MCH 30.3 MCHC 35.5 RDW Std Deviation 40.2 RDW Coeff of Romario 13.1 Plt Count 241 MPV 11.3 Immature Gran % (Auto) 0.400 Neut % (Auto) 60.5 Lymph % (Auto) 34.1 [place] % (Auto) 4.0 Eos % (Auto) 0.7 Baso % (Auto) 0.3 Absolute Neuts (auto) 4.5 Absolute Lymphs (auto) 2.53 Nucleated RBC % 0 Sodium 139 Potassium 3.8 Chloride 109 H Carbon Dioxide 23.0 Anion Gap 7 BUN 12 Creatinine 0.97 Estim Creat Clear Calc 69.51 Est GFR (MDRD) Af Amer 86 Est GFR (MDRD) Non-Af 71 BUN/Creatinine Ratio 12.4 Glucose 110 H Calcium 9.3 Urine Color Straw Urine Clarity Clear Urine pH 6.5 Ur Specific [place] 1.010 Urine Protein Negative Urine Glucose (UA) Normal Urine Ketones Negative Urine Occult Blood 25 H Urine Nitrite Negative Urine Bilirubin Negative Urine Urobilinogen Normal Ur Leukocyte Esterase Negative Urine RBC 0 SEEN Urine WBC 0-5 SEEN Ur Squamous Epith Cells 0-5 SEEN Urine Bacteria 0 SEEN Urine Mucus 0 SEEN Radiography Diagnostic Testing: Clinical Impression(s) from Imaging Studies Abdomen/Pelvis CT 12/12/21 23:51 IMPRESSION: There is 2 mm stone in the right kidney without hydronephrosis. There is 3 mm stone in the left kidney without hydronephrosis. Electronically Signed: Michelle Wilkinson MD at 0:40 EST , Treatment and Re-Evaluation Comments:: On repeat evaluation patient resting comfortably. She reports minimal improvement in her pain. Lab work reviewed and unremarkable. Urinalysis shows 25 occult blood but no RBCs noted. No sign of infection. CT scan is read as a 2 mm stone in the right kidney and a 3 mm on the left kidney. I do see a calcification in the pelvis that either presents a phlebolith or a small stone. Patient be treated with supportive care, analgesics, and encouraged to increase p.o. fluids. Discharge Plan Triage Chief Complaint: Abd Pain ED Provider: Makayla Menchaca Dx/Rx/DC Orders Clinical Impression: Left flank pain Instructions: ED Flank Pain, Uncertain Cause Prescriptions: New hydrocodone-acetaminophen 5-325 mg tablet 1 tab PO Q6H PRN (Reason: pain) 3 Days Qty: 10 RF: 0 No Action estradiol 0.5 mg tablet 0.5 mg PO DAILY 23 Days Qty: 30 RF: 1 diphenhydramine HCl [Benadryl] 50 mg Capsule 50 mg PO Q6H PRN (Reason: Allergic Symptoms) RF: 0 ondansetron HCl [Zofran] 4 mg Tablet 4 mg PO Q8H PRN (Reason: Nausea) RF: 0 cephalexin 250 mg Tablet 250 mg PO QHS RF: 0 meclizine 12.5 mg Tablet 12.5 mg PO BID PRN (Reason: Dizziness) RF: 0 omeprazole 40 mg Capsule,Delayed Release(Dr/Ec) 40 mg PO DAILY RF: 0 lorazepam [Ativan] 0.5 mg Tablet 0.5 mg PO BID PRN (Reason: Anxiety) RF: 0 dicyclomine 20 mg Tablet 20 mg PO DAILY PRN PRN (Reason: Abdominal Pain) RF: 0 nortriptyline 10 mg Capsule 10 mg PO QHS RF: 0 mirtazapine [Remeron] 15 mg Tablet 15 mg PO QHS RF: 0 albuterol sulfate [Ventolin HFA] 90 mcg/actuation Hfa Aerosol Inhaler 2 puff INHALATION Q6H PRN (Reason: Shortness Of Breath) RF: 0 fluticasone propionate 50 mcg/actuation [place],Suspension 1 spray INTRANASAL DAILY RF: 0 escitalopram oxalate [Lexapro] 20 mg Tablet 20 mg PO DAILY RF: 0 aripiprazole [Abilify] 5 mg Tablet 5 mg PO QHS RF: 0 rosuvastatin 5 mg Tablet 5 mg PO QHS RF: 0 tizanidine 4 mg Capsule 4 mg PO Q8H PRN (Reason: Back Pain) RF: 0 acidophilus-pectin, citrus [Acidophilus Probiotic] 100 million cell-10 mg Capsule 1 cap PO DAILY RF: 0 Dupixent Syringe 300 mg/2 mL Syringe 300 mg SUBCUT X1 RF: 0 Aimovig Autoinjector 70 mg/mL Auto-Injector 70 mg SUBCUT QMONTH RF: 0 d-mannose 500 mg Capsule 1,000 mg PO DAILY RF: 0 Primary Care Provider: Elizabeth Spear NP Referrals: Elizabeth Spear NP, [employer] [Primary Care Provider] - 1 Week if not improving Disposition Disposition: Home, Self Care
[2021-12-13] LABS: Absolute Lymphocyte Count 2.53 X10^3/uL (0.83-4.51); Absolute Neutrophil Count 4.5 X10^3/uL (2.0-7.7); Basophil# 0.02 X10^3/uL; Basophil% 0.3 % (0-1); Eosinophil# 0.05 X10^3/uL; Eosinophils% 0.7 % (0-5); Hematocrit 35.2 % (37-47); Hemoglobin 12.5 g/dL (12.0-15.0); Lymphocyte # 2.53 X10^3/ul (0.83-4.51); Lymphocyte % 34.1 % (19-41); Mean Corp Hgb Conc 35.5 g/dL (32-36); Mean Corpuscular Hgb 30.3 pg (27.0-32.0); Mean Corpuscular Volume 85.4 fL (81-99); Mean Platelet Vol. 11.3 fl (6.2-12.0); NRBC Flagged by Analyzer 0 % (0-5); Neutrophil # 4.48 X10^3/uL (2.7-7.7); Neutrophil % 60.5 % (47-70); Platelet Count 241 K/mm3 (150-450); RBC Distribution Width CV 13.1 % (11.6-14.6); RBC Distribution Width SD 40.2 fl (35.1-43.9); Red Blood Count 4.12 M/mm3 (4.2-5.4); White Blood Count 7.4 K/mm3 (4.4-11.0)
[2021-12-13] MEDS: Morphine 4 MG/ML Syringe IV (00:02)
[2021-12-13] MEDS: Ondansetron 4 MG/2 ML Vial IV (00:02)
[2021-12-13] MEDS: Ibuprofen 600 MG Tablet PO (00:03)
[2021-12-13 00:18] LABS: Bacteria 0 SEEN /hpf (None Seen); Color, Urine Straw (Yellow); Glucose, Dipstick Normal (Normal); Ketone-Dipstick Negative (Negative); Leukocyte Esterase-Dipstick Negative /ul (Negative); Mucous, Urine 0 SEEN /hpf (<or=2+); Nitrite-Dipstick Negative (Negative); Occult Blood-Urine 25 /ul (Negative); Protein-Dipstick Negative (Negative); Red Blood Cells-Urine 0 SEEN /hpf (0-5); Urine Bilirubin Dipstick Negative (Negative); Urine Clarity Clear (Clear); Urine Urobilinogen Normal (Normal); Urine pH 6.5 (5.0 - 8.0)
[2021-12-13 00:27] LABS: Squamous Epithelial Cells - UA 0-5 SEEN /hpf (5-10); White Blood Cells 0-5 SEEN /hpf (0-5)
[2021-12-13 00:32] LABS: Anion Gap 7 (5-15); BUN 12 mg/dL (7-18); BUN/Creat Ratio 12.4 RATIO (10-20); Calcium,Total 9.3 mg/dL (8.5-10.1); Chloride 109 mmol/L (98-107); Creatinine, Serum 0.97 mg/dL (0.55-1.02); EST Glomerular Filtration Rate 71 mL/min (>60); Est Glom Filt Rate - Afr Amer 86 mL/min (>60); Estimated Creatinine Clearance 69.51 ml/min; Glucose 110 mg/dL (74-106); Potassium 3.8 mmol/L (3.5-5.1); Sodium Level 139 mmol/L (136-145)
[2021-12-13] MEDS: HYDROcodone Bitartrate/Apap 5/325 Tablet PO (01:26)
== END 2021-12-13 01:35 | disposition home or self-care (01) ==
PROVIDERS: Emergency Provider Emergency Medicine; PCP Nurse Practitioner Primary Care; Visit Provider Emergency Medicine
DX: R10.32 Left lower quadrant pain (principal); F31.9 Bipolar disorder, unspecified; N20.0 Calculus of kidney; M79.7 Fibromyalgia; F41.9 Anxiety disorder, unspecified; Z79.899 Other long term (current) drug therapy; Z87.891 Personal history of nicotine dependence; Z87.442 Personal history of urinary calculi; Z90.710 Acquired absence of both cervix and uterus
CPT/HCPCS: 74176; 80048; 81001; 85025; 96374; 96375; 99283; A4216; J2405

== ENCOUNTER 2021-12-26 13:37 | Outpatient (CLI) | payer MEDICAID, SELFPAY | END 2021-12-26 23:59 | disposition home or self-care (01) | LOC: LABSPEC 13:39 | PROVIDERS: PCP Nurse Practitioner Primary Care; Referring Provider Obstetrics & Gynecology; Visit Provider Obstetrics & Gynecology | DX: N89.8 Other specified noninflammatory disorders of vagina (principal) | CPT/HCPCS: 87070; 87205 ==

== ENCOUNTER 2022-01-09 17:33 | Emergency (ER) | payer MEDICAID, SELFPAY ==
[2022-01-09 17:34] VITALS: BP 113/82; PULSE 90; RESP 16; TEMP 36.4; O2SAT 96; BMI 37.2
[2022-01-09 18:00] LABS: Mucous, Urine 0 SEEN /hpf (<or=2+); Red Blood Cells-Urine 0 SEEN /hpf (0-5); White Blood Cells 0 SEEN /hpf (0-5)
[2022-01-09 18:01] LABS: Color, Urine Yellow (Yellow); Glucose, Dipstick Normal (Normal); Ketone-Dipstick Negative (Negative); Leukocyte Esterase-Dipstick 25 /ul (Negative); Nitrite-Dipstick Negative (Negative); Occult Blood-Urine Negative /ul (Negative); Protein-Dipstick 15 mg/dl (Negative); Specific Gravity, Urine 1.015 (1.002-1.030); Urine Bilirubin Dipstick Negative (Negative); Urine Clarity Sl. Cloudy (Clear); Urine Urobilinogen Normal (Normal); Urine pH 6.5 (5.0 - 8.0)
[2022-01-09 18:12] LABS: Bacteria 2+ /hpf (None Seen); Squamous Epithelial Cells - UA 5-10 SEEN /hpf (5-10)
--- NOTE | 2022-01-09 19:12 | CT_ITS ---
STUDY: CT Abdomen And Pelvis W/O Contrast Injection 01/09/2022 8:22 PM REASON FOR EXAM: Female, 31 years old. ABDOMINAL PAIN Pain TECHNIQUE: Transaxial images were obtained without oral contrast, and without intravenous contrast. Individualized dose optimization techniques were used for this CT. COMPARISON: Dec 13 2021 12:17am FINDINGS: The visualized lung bases are unremarkable. The visualized portions of the heart are within normal limits. There is decreased attenuation of the liver consistent with steatosis. Normal gallbladder and extrahepatic biliary system. Normal spleen. Normal pancreas. Normal bilateral adrenal glands. Non obstructive 2 mm right renal parenchymal stones. There are hypodensities in the left kidney. These are consistent for cysts. No follow up required. Normal visualized stomach. Normal small intestine. Stool throughout the colon. There is non-visualization of the appendix. There are no acute findings of the abdominal aorta. Normal inferior vena cava. Subcentimeter mesenteric lymph nodes. Normal urinary bladder. There is absence of the uterus consistent with a prior hysterectomy. There is an umbilical hernia containing fat. Normal osseous structures. IMPRESSION: (NOT LISTED IN ORDER OF SIGNIFICANCE) Fatty liver. There are bilateral renal calculi. There is no evidence for an obstruction. There is no hydronephrosis. Other findings as above. Electronically Signed: Nathan Rivera MD at 20:24 EDT , CT/Abdomen/Pelvis without Cont
--- NOTE | 2022-01-09 19:19 | EDS_ITS ---
HPI History of Present Illness Chief Complaint: Flank Pain Informant: patient Narrative Narrative: Patient presents with abdominal pain nausea vomiting and fever. She states she has been having some of the pain since early December. It supposedly a kidney stone. She is set to either have laser lithotripsy on the . She describes it along the right flank and it variably goes to the right upper or right lower quadrant. She has had fevers today but her highest temperature was actually 100.2. No blood in the urine. No dysuria. Patient has had prior cholecystectomy. She has had a complete hysterectomy. She still has her appendix. Nothing really makes her symptoms better or worse. [facility] Medical History Anxiety Back pain Bipolar disorder Chronic interstitial cystitis Conversion disorder Depression Endometriosis Fibromyalgia History of cervical cancer Intermittent self-catheterization of bladder Kidney stone Migraine Peptic ulcer of stomach Home Medications acidophilus-pectin, citrus [Acidophilus Probiotic] 1 cap PO DAILY 09/22/21 [History Last Taken Unknown] albuterol sulfate [Ventolin HFA] 2 puff INHALATION Q6H PRN 09/22/21 [History Last Taken Unknown] aripiprazole [Abilify] 5 mg PO QHS 09/22/21 [History Last Taken Unknown] cephalexin 250 mg PO QHS 09/22/21 [History Last Taken Unknown] d-mannose 1,000 mg PO DAILY 09/22/21 [History Last Taken Unknown] dicyclomine 20 mg PO DAILY PRN PRN 09/22/21 [History Last Taken Unknown] diphenhydramine HCl [Benadryl] 50 mg PO Q6H PRN 09/22/21 [History Last Taken Unknown] dupilumab [Dupixent Syringe] 300 mg SUBCUT X1 09/22/21 [History Last Taken Unknown] erenumab-aooe [Aimovig Autoinjector] 70 mg SUBCUT QMONTH 09/22/21 [History Last Taken Unknown] escitalopram oxalate [Lexapro] 20 mg PO DAILY 09/22/21 [History Last Taken Unknown] fluticasone propionate 1 spray INTRANASAL DAILY 09/22/21 [History Last Taken Unknown] lorazepam [Ativan] 0.5 mg PO BID PRN 09/22/21 [History Last Taken Unknown] meclizine 12.5 mg PO BID PRN 09/22/21 [History Last Taken Unknown] mirtazapine [Remeron] 15 mg PO QHS 09/22/21 [History Last Taken Unknown] nortriptyline 10 mg PO QHS 09/22/21 [History Last Taken Unknown] omeprazole 40 mg PO DAILY 09/22/21 [History Last Taken Unknown] ondansetron HCl [Zofran] 4 mg PO Q8H PRN 09/22/21 [History Last Taken Unknown] rosuvastatin 5 mg PO QHS 09/22/21 [History Last Taken Unknown] tizanidine 4 mg PO Q8H PRN 09/22/21 [History Last Taken Unknown] estradiol 0.5 mg tablet 0.5 mg PO DAILY 23 Days #30 tab 11/26/21 [Rx Last Taken Unknown] hydrocodone-acetaminophen 1 tab PO Q6H PRN 3 Days #10 tab 12/13/21 [Rx Last Taken Unknown] hyoscyamine sulfate 0.125 mg tablet 0.125 mg PO BID-QID PRN 12/26/21 [History Last Taken Unknown] ibuprofen 800 mg tablet 800 mg PO Q8H PRN 30 Days #90 tab 12/26/21 [Rx Last Taken Unknown] methocarbamol 750 mg tablet 750 mg PO TID PRN 30 Days #90 tab 12/26/21 [Rx Last Taken Unknown] propranolol 10 mg tablet 10 mg PO BID 12/26/21 [History Last Taken Unknown] hydrocodone-acetaminophen 1 tab PO Q6H PRN 3 Days #10 tab 01/09/22 [Rx Last Taken Unknown] Allergy/AdvReac Type Severity Reaction Status Date / Time amitriptyline Allergy MUSCLE Verified 01/09/22 17:36 SPASMS Bleach (Sodium Hypochlorite) Allergy Hives Verified 01/09/22 17:36 codeine Allergy Hives Verified 01/09/22 17:36 ketorolac [From Toradol] Allergy Itching Verified 01/09/22 17:36 nitrofurantoin Allergy Anaphylaxis Verified 01/09/22 17:36 [From Macrodantin] doxycycline AdvReac Vomiting Verified 01/09/22 17:36 Family History Mother Hypertension Migraine Grandmother CVA (cerebral vascular accident) Grandfather Diabetes Father Myocardial infarction Surgical History History of hysterectomy Hx of cholecystectomy S/P laparoscopic surgery Social History Smoking Status: Former smoker alcohol intake: current details: occasionally substance use type: does not use caffeine: Yes what type of physical activity do you participate in: walking frequency: 1-2 times per week seatbelt use: always do you feel safe at home: Yes additional social history: Single ROS ROS ED Constitutional Constitutional ED: Reports subjective Eyes Eyes: Denies blurry vision ENT ENT ED: Denies rhinorrhea or sore throat Cardiovascular Cardiovascular: Denies chest pain or palpitations Respiratory/Chest Respiratory/Chest: Denies cough or dyspnea Gastrointestinal Gastrointestinal: Reports abdominal pain, nausea and vomiting; Denies constipation, diarrhea or melena Genitourinary Genitourinary ED: Denies dysuria, hematuria or urinary frequency Musculoskeletal Musculoskeletal: Reports back pain; Denies arthralgias, myalgias or neck pain Integumentary Denies rash Neurologic Neurologic: Denies paresthesias or weakness Psychiatric Psychiatric: Reports anxiety and depression Endocrine Endocrinology: Denies polydipsia or polyuria Allergic/Immunologic Allergic/Immunologic ED: Denies mouth swelling or urticaria EXAM Physical Exam Const Vital Signs: 01/09/22 17:34 01/09/22 19:28 01/09/22 20:13 Temperature 97.6 F L Temperature Source Temporal Pulse Rate 90 77 Respiratory Rate 16 18 Respiratory Effort Normal Non-Labored Respiratory Pattern Normal Blood Pressure 113/82 H Blood Pressure Mean 92 Pulse Ox 96 98 Oxygen Delivery Method Room Air Room Air Positive well nourished, well developed and obese General Appearance ED: well developed and NAD; Negative for cyanotic or diaphoretic Nutritional Appearance: obese HEENT Reports dry mucous membranes Mouth ED: Yes dry mucous membranes Mouth: dry mucous membranes Eyes General Eye ED: Negative for pale conjunctiva or scleral icterus Neck no JVD Resp normal respiratory effort and clear to auscultation bilaterally Effort and Inspection: Negative for pain with movement Auscultation: Negative for rales, rhonchi or wheezes Cardio regular rate, regular rhythm and no murmurs GI normal to inspection, nondistended, normoactive bowel sounds GI Narrative: Patient has some tenderness. But is very hard to isolate this to upper or lower. I do not get any rebound. Palpation: soft Back/Spine Back/Spine Narrative: Patient appears to have some CVA tenderness. Is very hard to tell if this is soft touch or with deeper palpation though. Extremity normal to inspection Neuro oriented x3 Sensorium / Orientation: alert Psych mental status grossly normal Skin no rashes or lesions noted and no wounds MDM MDM MDM Narrative Medical decision making narrative: Patient has a normal CBC including white c ount hemoglobin. had already been drawn on protocol labs and is negative. Urine shows no sign of infection. There are 0 white cells. There were some bacteria though. There were also 5-10 squamous cells. I do not think this requires acute treatment. Electrolytes were normal. Liver function tests were normal other than minimal elevation of alk phos at 157. CT scan of the abdomen was normal. The patient is able to go home. She has Zofran and Motrin. I will write for a couple hydrocodone. She will follow up with her urologist. Lab Data Attestation: I reviewed the patient's lab results. Labs: Laboratory Results - last 24 hr 01/09/22 01/09/22 01/09/22 17:50 19:17 19:17 WBC 6.9 RBC 4.23 Hgb 12.5 Hct 37.4 MCV 88.4 MCH 29.6 MCHC 33.4 RDW Std Deviation 43.3 RDW Coeff of Romario 13.3 Plt Count 220 MPV 11.3 Immature Gran % (Auto) 0.300 Neut % (Auto) 60.4 Lymph % (Auto) 32.1 [place] % (Auto) 5.0 Eos % (Auto) 1.9 Baso % (Auto) 0.3 Absolute Neuts (auto) 4.2 Absolute Lymphs (auto) 2.23 Nucleated RBC % 0 Sodium Potassium Chloride Carbon Dioxide Anion Gap BUN Creatinine Estim Creat Clear Calc Est GFR (MDRD) Af Amer Est GFR (MDRD) Non-Af BUN/Creatinine Ratio Glucose Calcium Total Bilirubin AST ALT Alkaline Phosphatase Total Protein Albumin Globulin Albumin/Globulin Ratio Serum , Qual NEGATIVE Urine Color Yellow Urine Clarity Sl. Cloudy Urine pH 6.5 Ur Specific [place] 1.015 Urine Protein 15 H Urine Glucose (UA) Normal Urine Ketones Negative Urine Occult Blood Negative Urine Nitrite Negative Urine Bilirubin Negative Urine Urobilinogen Normal Ur Leukocyte Esterase 25 H Urine RBC 0 SEEN Urine WBC 0 SEEN Ur Squamous Epith Cells 5-10 SEEN Urine Bacteria 2+ Urine Mucus 0 SEEN 01/09/22 19:17 WBC RBC Hgb Hct MCV MCH MCHC RDW Std Deviation RDW Coeff of Romario Plt Count MPV Immature Gran % (Auto) Neut % (Auto) Lymph % (Auto) [place] % (Auto) Eos % (Auto) Baso % (Auto) Absolute Neuts (auto) Absolute Lymphs (auto) Nucleated RBC % Sodium 140 Potassium 4.2 Chloride 109 H Carbon Dioxide 25.0 Anion Gap 6 BUN 15 Creatinine 0.86 Estim Creat Clear Calc 78.41 Est GFR (MDRD) Af Amer 99 Est GFR (MDRD) Non-Af 82 BUN/Creatinine Ratio 17.5 Glucose 116 H Calcium 9.1 Total Bilirubin 0.20 AST 37 ALT 49 Alkaline Phosphatase 157 H Total Protein 7.7 Albumin 3.6 Globulin 4.1 Albumin/Globulin Ratio 0.9 Serum , Qual Urine Color Urine Clarity Urine pH Ur Specific [place] Urine Protein Urine Glucose (UA) Urine Ketones Urine Occult Blood Urine Nitrite Urine Bilirubin Urine Urobilinogen Ur Leukocyte Esterase Urine RBC Urine WBC Ur Squamous Epith Cells Urine Bacteria Urine Mucus Radiography Diagnostic Testing: Clinical Impression(s) from Imaging Studies Abdomen/Pelvis CT 01/09/22 19:12 Discharge Plan Triage Chief Complaint: Flank Pain ED Provider: Brandon Velasquez Dx/Rx/DC Orders Clinical Impression: Acute right flank pain, Bilateral nephrolithiasis Instructions: Abdominal Pain Prescriptions: New hydrocodone-acetaminophen 5-325 mg tablet 1 tab PO Q6H PRN (Reason: pain) 3 Days Qty: 10 RF: 0 No Action estradiol 0.5 mg tablet 0.5 mg PO DAILY 23 Days Qty: 30 RF: 1 methocarbamol 750 mg tablet 750 mg PO TID PRN (Reason: pain) 30 Days Qty: 90 RF: 0 ibuprofen 800 mg tablet 800 mg PO Q8H PRN (Reason: pain) 30 Days Qty: 90 RF: 0 propranolol 10 mg tablet 10 mg PO BID RF: 0 hyoscyamine sulfate [Levsin] 0.125 mg tablet 0.125 mg PO BID-QID PRNRF: 0 diphenhydramine HCl [Benadryl] 50 mg Capsule 50 mg PO Q6H PRN (Reason: Allergic Symptoms) RF: 0 ondansetron HCl [Zofran] 4 mg Tablet 4 mg PO Q8H PRN (Reason: Nausea) RF: 0 cephalexin 250 mg Tablet 250 mg PO QHS RF: 0 meclizine 12.5 mg Tablet 12.5 mg PO BID PRN (Reason: Dizziness) RF: 0 omeprazole 40 mg Capsule,Delayed Release(Dr/Ec) 40 mg PO DAILY RF: 0 lorazepam [Ativan] 0.5 mg Tablet 0.5 mg PO BID PRN (Reason: Anxiety) RF: 0 dicyclomine 20 mg Tablet 20 mg PO DAILY PRN PRN (Reason: Abdominal Pain) RF: 0 nortriptyline 10 mg Capsule 10 mg PO QHS RF: 0 mirtazapine [Remeron] 15 mg Tablet 15 mg PO QHS RF: 0 albuterol sulfate [Ventolin HFA] 90 mcg/actuation Hfa Aerosol Inhaler 2 puff INHALATION Q6H PRN (Reason: Shortness Of Breath) RF: 0 fluticasone propionate 50 mcg/actuation [place],Suspension 1 spray INTRANASAL DAILY RF: 0 escitalopram oxalate [Lexapro] 20 mg Tablet 20 mg PO DAILY RF: 0 aripiprazole [Abilify] 5 mg Tablet 5 mg PO QHS RF: 0 rosuvastatin 5 mg Tablet 5 mg PO QHS RF: 0 tizanidine 4 mg Capsule 4 mg PO Q8H PRN (Reason: Back Pain) RF: 0 acidophilus-pectin, citrus [Acidophilus Probiotic] 100 million cell-10 mg Capsule 1 cap PO DAILY RF: 0 Dupixent Syringe 300 mg/2 mL Syringe 300 mg SUBCUT X1 RF: 0 Aimovig Autoinjector 70 mg/mL Auto-Injector 70 mg SUBCUT QMONTH RF: 0 d-mannose 500 mg Capsule 1,000 mg PO DAILY RF: 0 hydrocodone-acetaminophen 5-325 mg tablet 1 tab PO Q6H PRN (Reason: pain) 3 Days Qty: 10 RF: 0 Primary Care Provider: Elizabeth Spear NP Referrals: Jeannette Lagunas MD [STAFF PHYSICIAN] - [facility] appointment Elizabeth Spear NP, [employer] [Primary Care Provider] - Disposition Disposition: Home, Self Care
[2022-01-09] MEDS: 0.9% Normal Saline 1,000 ML 1000 ML IV (19:25)
[2022-01-09] MEDS: Morphine 4 MG/ML Syringe IV ×2 (19:26→20:26)
[2022-01-09] MEDS: Ondansetron 4 MG/2 ML Vial IV (19:26)
[2022-01-09 19:46] LABS: ALB/GLOB Ratio 0.9 RATIO (0.9-2.4); AST(SGOT) 37 U/L (15-37); Alanine Aminotransfer ALT/SGPT 49 U/L (13-56); Albumin, Serum 3.6 g/dL (3.2-5.0); Alkaline Phosphatase 157 U/L (45-117); Anion Gap 6 (5-15); BUN 15 mg/dL (7-18); BUN/Creat Ratio 17.5 RATIO (10-20); Calcium,Total 9.1 mg/dL (8.5-10.1); Chloride 109 mmol/L (98-107); Creatinine, Serum 0.86 mg/dL (0.55-1.02); EST Glomerular Filtration Rate 82 mL/min (>60); Est Glom Filt Rate - Afr Amer 99 mL/min (>60); Estimated Creatinine Clearance 78.41 ml/min; Globulin 4.1 g/dL (2.2-4.2); Glucose 116 mg/dL (74-106); Potassium 4.2 mmol/L (3.5-5.1); Protein, Total 7.7 g/dL (6.4-8.2); Sodium Level 140 mmol/L (136-145)
[2022-01-09 19:49] LABS: Internal QC Validated? YES +Cl - CLEAR BKGD
[2022-01-09 19:50] LABS: Pregnancy, Serum, hCG Quali. NEGATIVE Negative
[2022-01-09 19:54] LABS: Absolute Lymphocyte Count 2.23 X10^3/uL (0.83-4.51); Absolute Neutrophil Count 4.2 X10^3/uL (2.0-7.7); Basophil# 0.02 X10^3/uL; Basophil% 0.3 % (0-1); Eosinophil# 0.13 X10^3/uL; Eosinophils% 1.9 % (0-5); Hematocrit 37.4 % (37-47); Hemoglobin 12.5 g/dL (12.0-15.0); Lymphocyte # 2.23 X10^3/ul (0.83-4.51); Lymphocyte % 32.1 % (19-41); Mean Corp Hgb Conc 33.4 g/dL (32-36); Mean Corpuscular Hgb 29.6 pg (27.0-32.0); Mean Corpuscular Volume 88.4 fL (81-99); Mean Platelet Vol. 11.3 fl (6.2-12.0); Monocyte# 0.35 X10^3/uL; NRBC Flagged by Analyzer 0 % (0-5); Neutrophil # 4.19 X10^3/uL (2.7-7.7); Neutrophil % 60.4 % (47-70); Platelet Count 220 K/mm3 (150-450); RBC Distribution Width CV 13.3 % (11.6-14.6); RBC Distribution Width SD 43.3 fl (35.1-43.9); Red Blood Count 4.23 M/mm3 (4.2-5.4); White Blood Count 6.9 K/mm3 (4.4-11.0)
[2022-01-09 20:13] VITALS: PULSE 77; RESP 18; O2SAT 98
== END 2022-01-09 21:31 | disposition home or self-care (01) ==
PROVIDERS: Emergency Provider Emergency Medicine; PCP Nurse Practitioner Primary Care; Visit Provider Emergency Medicine
DX: R10.9 Unspecified abdominal pain (principal); F31.9 Bipolar disorder, unspecified; N20.0 Calculus of kidney; R50.9 Fever, unspecified; R11.2 Nausea with vomiting, unspecified; M79.7 Fibromyalgia; Z79.899 Other long term (current) drug therapy; Z87.891 Personal history of nicotine dependence; Z90.710 Acquired absence of both cervix and uterus; E66.9 Obesity, unspecified
CPT/HCPCS: 74176; 80053; 81001; 84703; 85025; 87077; 87086; 87088; 87186; 96361; 96374; 96375; 96376; 99283; J7030; A4216; J2405

== ENCOUNTER 2022-01-21 06:36 | Day surgery (SDC) | payer MEDICAID, SELFPAY ==
[2022-01-21] VITALS (8 sets, daily range): BP systolic 97–123; BP diastolic 66–82; PULSE 68–85; RESP 14–20; TEMP 36.7; O2SAT 90–96; BMI 36.6
[2022-01-21] MEDS: Lactated Ringers 1,000 ML 15 ML IV (07:19)
[2022-01-21] MEDS: Cefazolin 2 GM in 0.9% Normal Saline 100 ML IV (08:44)
--- NOTE | 2022-01-21 08:50 | CALC_PTH ---
PATIENT: JOVANNI BUSTILLO [place] [facility] [place][id number] AGE/SX: 31/F ROOM: RE01/21/[address]: Dr. Jeannette Lagunas MD : 1990 BED: DIS: 01/21/2022 SPEC #: [id number] RECD: 01/21/22 11:58 STATUS: CINDY KRAUSE #: [id number] YAMILKA: 01/21/22 08:[address]: Jeannette Lagunas DEPT: SURGICAL PATHOLOGY RECD BY: Edel Casiano ENTERED: 01/21/22 13:28 SP TYPE: Calculi OTHR DR: Elizabeth Spear NP Tissues: CALCULI Procedures: Surgery Specimen Level I HEADER OPERATION: Cysto, ureteroscopy, stone basket extraction, stent PRE-OP DIAGNOSIS: Calculus of kidney TISSUE SUBMITTED: Bilateral renal calculi GROSS DIAGNOSIS Fragments of stone, clinically bilateral renal calculi. SJ:francie 01/22/2022 COMMENT The calculi are submitted in its entirety for chemical stone analysis. The results from this study will be reported separately. GROSS DESCRIPTION Received without fixative labeled with the patient's name and designated bilateral renal calculi. The specimen consists of multiple minute fragments of brownish stone measuring in aggregate 0.2 x 0.1 x0.1 cm. The entire specimen is submitted for stone analysis. / JUANITO:francie 01/21/2022 CPT: 31805
--- NOTE | 2022-01-21 08:50 | PCM.OPRPT ---
Problems Associated Problem List Diagnoses (1) Bilateral renal stones: Report of Operation Date of Procedure: 01/21/22 Pre-Operative Diagnosis: bilateral renal stones Post-Operative Diagnosis: same Surgery/Procedure Performed:: cystoscopy, bilateral ureteroscopy with stone basket extraction, left ureteral stent insertion Surgeon: Jeannette Lagunas Type of Anesthesia: General Specimen's removed: Renal stones Description of Procedure: The patient is a 31-year-old female with recurrent issues regarding bilateral flank pain, stones and recurrent urinary tract infections. After obtaining informed consent, she is ready to proceed today with surgical intervention for removal of any renal stones identified. She is aware that the stones are very small and that this procedure might be unsuccessful. The patient was taken to the operating room and placed on the operating room table. Anesthesia monitored the head, neck, airway, IV access and vital signs throughout the case. Once anesthesia was appropriately administered the patient was placed into dorsal lithotomy position and was prepped and draped in usual sterile fashion. The cystoscope was then inserted through the urethra under direct visualization into the urinary bladder. The bladder was visualized and found to be normal. At this time the right ureteral orifice was intubated with 2 separate 0.035 glide wires. 1 was used as a safety wire. The ureteroscope was inserted over the other wire into the renal pelvis without difficulty. Every calyx was directly visualized. Only 1 calculus was identified. This was grasped with an N-edinson basket and retrieved without difficulty. There is minimal trauma to the renal pelvis or ureter and the decision was made to leave the right side without a ureteral stent. The process was then repeated on the patient's left side. 2 stones were removed from the calyces using the stone basket. There was some bleeding and irritation in the renal pelvis and the decision was made to place a ureteral stent. There were no abnormalities identified in any of the calyces other than stones. A 6 Austrian 24 cm JJ stent was inserted using the cystoscope over the safety wire with good positioning in the renal pelvis as well as the urinary bladder. The string was left intact the ureteral stent and using Cavilon and Steri-Strips, was secured to the inner left thigh. The patient was then awakened and taken to the recovery room in good condition. The small stones were sent for evaluation. There were no complications during this procedure. Grafts/Implants Used: 6 x 24 JJ stent Complications None Admit VTE Documentation VTE Present on Admission: Yes VTE Mechan Device Prophylaxis: SCD's VTE Pharm Prophylaxis ordered?: No Reason prophylaxis not ordered:: Treatment Not Indicated
--- NOTE | 2022-01-21 08:51 | DCINST_ITS ---
Discharge Instructions Diet Discharge Diet: No restrictions Activity Discharge Activity: Return to Normal Activity Dressing / Incision Additional Dressing/Incision Instructions:: carefully pull string and remove stent tomorrow morning Follow Up Care Please Follow Up With: Jeannette Lagunas MD When: call the office for an appt to be seen in 2-3 weeks Test Results: Test results from this visit will be discussed in further detail at your follow-up appointment, if applicable. Discharge Plan Admission Attending Provider: Jeannette Lagunas Primary Care Provider: Elizabeth Spear NP Discharge Orders/Prescriptions Prescriptions: New oxycodone-acetaminophen [oxycodone-acetaminophen] 1 TABLET tablet 2 tab PO Q8H PRN PRN (Reason: Pain) 7 Days Qty: 15 RF: 0 cephalexin [cephalexin] 500 MG capsule 500 mg PO Q12 3 Days Qty: 6 RF: 0 phenazopyridine [Pyridium] 200 MG tablet 200 mg PO TID PRN PRN (Reason: Bladder Spasms) 7 Days Qty: 30 RF: 0 Continued ibuprofen 800 mg tablet 800 mg PO Q8H PRN (Reason: pain) 30 Days Qty: 90 RF: 0 propranolol 10 mg tablet 10 mg PO BID RF: 0 diphenhydramine HCl 50 mg Capsule 50 mg PO Q6H PRN (Reason: Allergic Symptoms) RF: 0 ondansetron HCl [Zofran] 4 mg Tablet 4 mg PO Q8H PRN (Reason: Nausea) RF: 0 cephalexin 250 mg Tablet 250 mg PO QHS RF: 0 omeprazole 40 mg Capsule,Delayed Release(Dr/Ec) 40 mg PO DAILY RF: 0 lorazepam [Ativan] 0.5 mg Tablet 0.5 mg PO BID PRN (Reason: Anxiety) RF: 0 dicyclomine 20 mg Tablet 20 mg PO DAILY PRN PRN (Reason: Abdominal Pain) RF: 0 nortriptyline 10 mg Capsule 50 mg PO QHS RF: 0 mirtazapine [Remeron] 15 mg Tablet 15 mg PO QHS RF: 0 albuterol sulfate [Ventolin HFA] 90 mcg/actuation Hfa Aerosol Inhaler 2 puff INHALATION Q6H PRN (Reason: Shortness Of Breath) RF: 0 fluticasone propionate 50 mcg/actuation [place],Suspension 1 spray INTRANASAL DAILY RF: 0 escitalopram oxalate [Lexapro] 20 mg Tablet 20 mg PO DAILY RF: 0 aripiprazole [Abilify] 5 mg Tablet 5 mg PO QHS RF: 0 rosuvastatin 5 mg Tablet 5 mg PO QHS RF: 0 tizanidine 4 mg Capsule 4 mg PO Q8H PRN (Reason: Back Pain) RF: 0 acidophilus-pectin, citrus 100 million cell-10 mg Capsule 1 cap PO DAILY RF: 0 Dupixent Syringe 300 mg/2 mL Syringe 300 mg SUBCUT .[id number] RF: 0 Aimovig Autoinjector 70 mg/mL Auto-Injector 70 mg SUBCUT QMONTH RF: 0 d-mannose 500 mg Capsule 1,000 mg PO DAILY RF: 0 Referrals / Follow Up: Elizabeth Spear HEALTH AND FITNESS PROFESSOR, [facility]ALTH AND FITNESS PROFESSOR-C [Primary Care Provider] - Disposition Disposition (needs filled in before D/C Order can be placed): Home, Self Care
[2022-01-21] MEDS: oxyCODONE 5 MG Tablet PO (10:56)
== END 2022-01-21 23:59 | disposition home or self-care (01) ==
LOC: SDC 06:38 → AC 06:39
PROVIDERS: PCP Nurse Practitioner Primary Care; Referring Provider Urology; Visit Provider Urology
PROC: 0TJ98ZZ Inspection of Ureter, Via Natural or Artificial Opening Endoscopic (ICD-10-PCS; CPT 52352; principal; 2022-01-21 08:40)
DX: N20.0 Calculus of kidney (principal); E78.5 Hyperlipidemia, unspecified; R31.9 Hematuria, unspecified; N80.9 Endometriosis, unspecified; G89.29 Other chronic pain; K21.9 Gastro-esophageal reflux disease without esophagitis; N39.46 Mixed incontinence; R35.1 Nocturia; R33.8 Other retention of urine; R39.198 Other difficulties with micturition; N94.10 Unspecified dyspareunia; I10 Essential (primary) hypertension; Z79.899 Other long term (current) drug therapy; Z87.442 Personal history of urinary calculi
CPT/HCPCS: 52352; 52332; 00918; 76000; 82360; 88300; J7120; C2617; J2405

== ENCOUNTER 2022-03-09 09:45 | Emergency (ER) | payer MEDICAID, SELFPAY ==
[2022-03-09 09:46] VITALS: BP 168/115; PULSE 67; RESP 15; TEMP 36.6; O2SAT 98; BMI 34.8
--- NOTE | 2022-03-09 10:18 | CT_ITS ---
STUDY: CT ABDOMEN AND PELVIS WITH CONTRAST REASON FOR EXAM: Female, 31 years old. RUQ pain RADIATION DOSAGE (If Supplied By Facility): CTDIvol = ( 20.98 ) mGy, DLP = ( 1212.18 ) mGycm TECHNIQUE: Transaxial images were obtained from the dome of the diaphragm to the symphysis pubis without oral contrast. IV 100mL Isovue-370 was administered. Sagittal and coronal images were reconstructed. Individualized dose optimization techniques were used for this CT. COMPARISON: 01/09/2022 FINDINGS: The visualized lung bases are unremarkable. The visualized portions of the heart are within normal limits. Normal liver. There is non-visualization of the gallbladder, which may be secondary to either contraction or a prior cholecystectomy. Normal spleen. Normal pancreas. Normal bilateral adrenal glands. Normal right kidney. Normal left kidney. Normal visualized stomach. Normal small intestine. Normal colon. The appendix is visualized and appears normal. Normal abdominal aorta. Normal inferior vena cava. Normal retroperitoneum. Normal urinary bladder. Normal abdominal wall. Normal osseous structures. CT/Abdomen/Pelvis W IV Cont ONLY IMPRESSION: Normal enhanced CT of the abdomen and pelvis. Electronically Signed: Ian Kinney MD at 11:27 EDT ,
--- NOTE | 2022-03-09 10:18 | EDS_ITS ---
HPI HPI - GI History of Present Illness Chief Complaint: Abd Pain Narrative Narrative: Patient presents with right upper quadrant pain that she has had since yesterday evening after eating dinner at around 5 or 6 PM. This was approximately 16 hours ago. She states she has problems with fatty liver and that whenever my numbers get high, I have pain. She states that when her numbers are elevated she is told not to take Tylenol or ibuprofen, and to start a low-fat diet. 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 She is status post hysterectomy and cholecystectomy for abdominal surgeries. She states she had nausea and vomiting the day before her pain started. She denies any fevers or chills. No pruritus. No dysuria or hematuria. Pain is in the right upper quadrant of her abdomen. She denies any exacerbating or alleviating factors, but states it was getting worse into the program lead, and worse today. [facility] History Alcohol use Anxiety Back pain Bilateral renal stones Bipolar disorder Cardiology follow-up encounter Chronic interstitial cystitis Conversion disorder Depression Easy bruising Endometriosis Environmental and seasonal allergies Fatty liver Fibromyalgia Former smoker Gastric reflux High cholesterol History of cervical cancer History of echocardiogram History of edema History of renal disease History of stress test Hypertension Intermittent self-catheterization of bladder Kidney stone Leg cramps Marijuana use Migraine Peptic ulcer of stomach Rash Restless legs Syncope Wears dentures Wears glasses Home Medications Aimovig Autoinjector 70 mg SUBCUT QMONTH 09/22/21 [History Last Taken Unknown] Dupixent Syringe 300 mg SUBCUT .[id number] 09/22/21 [History Last Taken Unknown] acidophilus-pectin, citrus 1 cap PO DAILY 09/22/21 [History Last Taken Unknown] albuterol sulfate [Ventolin HFA] 2 puff INHALATION Q6H PRN 09/22/21 [History Last Taken Unknown] aripiprazole [Abilify] 5 mg PO QHS 09/22/21 [History Last Taken Unknown] cephalexin 250 mg PO QHS 09/22/21 [History Last Taken Unknown] d-mannose 1,000 mg PO DAILY 09/22/21 [History Last Taken Unknown] dicyclomine 20 mg PO DAILY PRN PRN 09/22/21 [History Last Taken Unknown] diphenhydramine HCl 50 mg PO Q6H PRN 09/22/21 [History Last Taken Unknown] escitalopram oxalate [Lexapro] 20 mg PO DAILY 09/22/21 [History Last Taken Unknown] fluticasone propionate 1 spray INTRANASAL DAILY 09/22/21 [History Last Taken Unknown] lorazepam [Ativan] 0.5 mg PO BID PRN 09/22/21 [History Last Taken Unknown] mirtazapine [Remeron] 15 mg PO QHS 09/22/21 [History Last Taken Unknown] nortriptyline 50 mg PO QHS 09/22/21 [History Last Taken Unknown] omeprazole 40 mg PO DAILY 09/22/21 [History Last Taken Unknown] ondansetron HCl [Zofran] 4 mg PO Q8H PRN 09/22/21 [History Last Taken Unknown] rosuvastatin 5 mg PO QHS 09/22/21 [History Last Taken Unknown] tizanidine 4 mg PO Q8H PRN 09/22/21 [History Last Taken Unknown] propranolol 10 mg tablet 10 mg PO BID 12/26/21 [History Last Taken Unknown] cephalexin 500 mg PO Q12 3 Days #6 capsule 01/21/22 [Rx Last Taken Unknown] oxycodone-acetaminophen 2 tab PO Q8H PRN PRN 7 Days #15 tab 01/21/22 [Rx Last Taken Unknown] phenazopyridine [Pyridium] 200 mg PO TID PRN PRN 7 Days #30 tab 01/21/22 [Rx Last Taken Unknown] Allergy/AdvReac Type Severity Reaction Status Date / Time amitriptyline Allergy MUSCLE Verified 03/09/22 09:46 SPASMS Bleach (Sodium Hypochlorite) Allergy Hives Verified 03/09/22 09:46 codeine Allergy Hives Verified 03/09/22 09:46 ketorolac [From Toradol] Allergy Itching Verified 03/09/22 09:46 nitrofurantoin Allergy Anaphylaxis Verified 03/09/22 09:46 [From Macrodantin] doxycycline AdvReac Vomiting Verified 03/09/22 09:46 Family History Mother Hypertension Migraine Grandmother CVA (cerebral vascular accident) Grandfather Diabetes Father Myocardial infarction Surgical History History of hysterectomy Hx of cholecystectomy S/P laparoscopic surgery Social History Smoking Status: Former smoker alcohol intake: current details: occasionally substance use type: does not use caffeine: Yes what type of physical activity do you participate in: walking frequency: 1-2 times per week seatbelt use: always do you feel safe at home: Yes additional social history: Single ROS ROS ED ROS Narrative Constitutional: No fever, no chills. HEENT: No sore throat. No neck pain. No loss of vision. No rhinorrhea. Cardiovascular: No chest pain. No palpitations. No pedal edema. Respiratory: No cough, no shortness of breath. Abdominal: Right upper quadrant abdominal pain. No nausea or vomiting currently-resolved. Genitourinary: No dysuria. No hematuria. Musculoskeletal: No myalgias. No arthralgias. Neurologic: No headaches. No dizziness. No lightheadedness. Skin: No rash. No change in color. Psychiatric: No depression. No anxiety. EXAM Physical Exam Narrative Exam Narrative: Afebrile. Vital signs noted. HEENT: Normocephalic. Atraumatic. PERRL, EOMI. Neck soft and supple. No point tenderness or step off. Cardiovascular: Regular rate and rhythm. No murmurs, rubs, or gallops appreciated. Respiratory: No tachypnea. Lungs clear to auscultation bilaterally. Gastrointestinal: Abdomen soft, obese, right upper quadrant tenderness, with normoactive bowel sounds. No rebound or guarding. Neurological: Awake. Alert. Nonfocal, nonlateralizing. Skin: No rash. Normal color. No pallor. Musculoskeletal: No pedal edema. Full range of motion extremities. Const Vital Signs: 03/09/22 09:46 Temperature 97.8 F Temperature Source Temporal Pulse Rate 67 Respiratory Rate 15 Blood Pressure 168/115 H Blood Pressure Mean 132 Pulse Ox 98 Oxygen Delivery Method Room Air MDM MDM MDM Narrative Medical decision making narrative: Comprehensive work-up was pursued. CBC, CMP, and lipase obtained although she has had a cholecystectomy. She was given Bentyl for analgesia intramuscularly. She was also bolused normal saline [address] imaging with IV contrast obtained. It shows no evidence of acute process, does show prior cholecystectomy. CBC is normal with a normal white count of 6.0, platelet count normal at 214. Hemoglobin normal at 13.3. CMP shows chloride slightly elevated at 111 but normal sodium and normal potassium. LFTs are normal. Alk phos slightly elevated at 147, but it has been higher in the past. I think this is nonspecific. Lipase is normal at 104. Urinalysis shows no evidence of infection. She was given Bentyl for analgesia and she told the RN that it did not help. She relates history that she has allergies to ketorolac and to codeine. She states she took ibuprofen prior to arrival, but her pain got worse. I do not feel opiate medication is indicated at this time as she has a negative CT scan and negative laboratory work. I do feel that she has nonspecific abdominal pain in the right upper quadrant. I offered her Bentyl, but she states it did not work and she did not want Tylenol here in the emergency department because she cannot get it at home. At this point in time, I feel she can be discharged safely home with follow-up. Return instructions to the emergency department were reviewed. Disposition is discharged home in stable condition. Lab Data Attestation: I reviewed the patient's lab results. Labs: Laboratory Results - last 24 hr 03/09/22 03/09/22 03/09/22 10:05 10:10 10:10 WBC 6.0 RBC 4.57 Hgb 13.3 Hct 40.2 MCV 88.0 MCH 29.1 MCHC 33.1 RDW Std Deviation 43.1 RDW Coeff of Romario 13.5 Plt Count 214 MPV 12.3 H Immature Gran % (Auto) 0.200 Neut % (Auto) 41.7 L Lymph % (Auto) 48.6 H Hendricks % (Auto) 5.7 Eos % (Auto) 3.3 Baso % (Auto) 0.5 Absolute Neuts (auto) 2.5 Absolute Lymphs (auto) 2.91 Nucleated RBC % 0 Sodium 140 Potassium 3.5 Chloride 111 H Carbon Dioxide 23.0 Anion Gap 6 BUN 11 Creatinine 0.92 Estim Creat Clear Calc 76.51 Est GFR (MDRD) Af Amer 91 Est GFR (MDRD) Non-Af 76 BUN/Creatinine Ratio 12.0 Glucose 136 H Calcium 9.2 Total Bilirubin 0.50 AST 32 ALT 52 Alkaline Phosphatase 147 H Total Protein 8.3 H Albumin 4.1 Globulin 4.2 Albumin/Globulin Ratio 1.0 Lipase 104 Urine Color Yellow Urine Clarity Clear Urine pH 6.5 Ur Specific [place] 1.010 Urine Protein 15 H Urine Glucose (UA) Normal Urine Ketones Negative Urine Occult Blood 10 H Urine Nitrite Negative Urine Bilirubin Negative Urine Urobilinogen Normal Ur Leukocyte Esterase 100 H Urine RBC 0 SEEN Urine WBC 0 SEEN Ur Squamous Epith Cells 0-5 SEEN Urine Bacteria 0 SEEN Urine Mucus 0 SEEN Radiography Diagnostic Testing: Clinical Impression(s) from Imaging Studies Abdomen/Pelvis CT 03/09/22 10:18 IMPRESSION: Normal enhanced CT of the abdomen and pelvis. Electronically Signed: Ian Kinney MD at 11:27 EDT , Discharge Plan Triage Chief Complaint: Abd Pain ED Provider: Hayder Hudson Dx/Rx/DC Orders Clinical Impression: Abdominal pain, RUQ, Abdominal pain, acute Instructions: ED Abdominal Pain Unkn Cause Fem Prescriptions: No Action propranolol 10 mg tablet 10 mg PO BID RF: 0 diphenhydramine HCl 50 mg Capsule 50 mg PO Q6H PRN (Reason: Allergic Symptoms) RF: 0 ondansetron HCl [Zofran] 4 mg Tablet 4 mg PO Q8H PRN (Reason: Nausea) RF: 0 cephalexin 250 mg Tablet 250 mg PO QHS RF: 0 omeprazole 40 mg Capsule,Delayed Release(Dr/Ec) 40 mg PO DAILY RF: 0 lorazepam [Ativan] 0.5 mg Tablet 0.5 mg PO BID PRN (Reason: Anxiety) RF: 0 dicyclomine 20 mg Tablet 20 mg PO DAILY PRN PRN (Reason: Abdominal Pain) RF: 0 nortriptyline 10 mg Capsule 50 mg PO QHS RF: 0 mirtazapine [Remeron] 15 mg Tablet 15 mg PO QHS RF: 0 albuterol sulfate [Ventolin HFA] 90 mcg/actuation Hfa Aerosol Inhaler 2 puff INHALATION Q6H PRN (Reason: Shortness Of Breath) RF: 0 fluticasone propionate 50 mcg/actuation [place],Suspension 1 spray INTRANASAL DAILY RF: 0 escitalopram oxalate [Lexapro] 20 mg Tablet 20 mg PO DAILY RF: 0 aripiprazole [Abilify] 5 mg Tablet 5 mg PO QHS RF: 0 rosuvastatin 5 mg Tablet 5 mg PO QHS RF: 0 tizanidine 4 mg Capsule 4 mg PO Q8H PRN (Reason: Back Pain) RF: 0 acidophilus-pectin, citrus 100 million cell-10 mg Capsule 1 cap PO DAILY RF: 0 Dupixent Syringe 300 mg/2 mL Syringe 300 mg SUBCUT .[id number] RF: 0 Aimovig Autoinjector 70 mg/mL Auto-Injector 70 mg SUBCUT QMONTH RF: 0 d-mannose 500 mg Capsule 1,000 mg PO DAILY RF: 0 oxycodone-acetaminophen [oxycodone-acetaminophen] 1 TABLET tablet 2 tab PO Q8H PRN PRN (Reason: Pain) 7 Days Qty: 15 RF: 0 cephalexin [cephalexin] 500 MG capsule 500 mg PO Q12 3 Days Qty: 6 RF: 0 phenazopyridine [Pyridium] 200 MG tablet 200 mg PO TID PRN PRN (Reason: Bladder Spasms) 7 Days Qty: 30 RF: 0 Primary Care Provider: Elizabeth Spear NP Referrals: Elizabeth Spear NP, [facility] [employer] [Primary Care Provider] - 1 Day Activity Restrictions/Additional Instructions: Follow-up with your geospatial intelligence analyst as soon as possible. Disposition Disposition: Home, Self Care
[2022-03-09 10:28] LABS: Bacteria 0 SEEN /hpf (None Seen); Mucous, Urine 0 SEEN /hpf (<or=2+); Red Blood Cells-Urine 0 SEEN /hpf (0-5); White Blood Cells 0 SEEN /hpf (0-5)
[2022-03-09 10:31] LABS: Absolute Lymphocyte Count 2.91 X10^3/uL (0.83-4.51); Absolute Neutrophil Count 2.5 X10^3/uL (2.0-7.7); Basophil# 0.03 X10^3/uL; Basophil% 0.5 % (0-1); Eosinophils% 3.3 % (0-5); Hematocrit 40.2 % (37-47); Hemoglobin 13.3 g/dL (12.0-15.0); Lymphocyte # 2.91 X10^3/ul (0.83-4.51); Lymphocyte % 48.6 % (19-41); Mean Corp Hgb Conc 33.1 g/dL (32-36); Mean Corpuscular Hgb 29.1 pg (27.0-32.0); Mean Platelet Vol. 12.3 fl (6.2-12.0); Monocyte# 0.34 X10^3/uL; Monocyte% 5.7 % (0-10); NRBC Flagged by Analyzer 0 % (0-5); Neutrophil % 41.7 % (47-70); Platelet Count 214 K/mm3 (150-450); RBC Distribution Width CV 13.5 % (11.6-14.6); RBC Distribution Width SD 43.1 fl (35.1-43.9); Red Blood Count 4.57 M/mm3 (4.2-5.4)
[2022-03-09 10:31] LABS: Color, Urine Yellow (Yellow); Glucose, Dipstick Normal (Normal); Ketone-Dipstick Negative (Negative); Leukocyte Esterase-Dipstick 100 /ul (Negative); Nitrite-Dipstick Negative (Negative); Occult Blood-Urine 10 /ul (Negative); Protein-Dipstick 15 mg/dl (Negative); Urine Bilirubin Dipstick Negative (Negative); Urine Clarity Clear (Clear); Urine Urobilinogen Normal (Normal); Urine pH 6.5 (5.0 - 8.0)
[2022-03-09 10:36] LABS: Squamous Epithelial Cells - UA 0-5 SEEN /hpf (5-10)
[2022-03-09] MEDS: 0.9% Normal Saline 1,000 ML 1000 ML IV (10:41)
[2022-03-09] MEDS: Dicyclomine 20 MG/2 ML Vial IM (10:41)
[2022-03-09 10:48] LABS: AST(SGOT) 32 U/L (15-37); Alanine Aminotransfer ALT/SGPT 52 U/L (13-56); Albumin, Serum 4.1 g/dL (3.2-5.0); Alkaline Phosphatase 147 U/L (45-117); Anion Gap 6 (5-15); BUN 11 mg/dL (7-18); Calcium,Total 9.2 mg/dL (8.5-10.1); Chloride 111 mmol/L (98-107); Creatinine, Serum 0.92 mg/dL (0.55-1.02); EST Glomerular Filtration Rate 76 mL/min (>60); Est Glom Filt Rate - Afr Amer 91 mL/min (>60); Estimated Creatinine Clearance 76.51 ml/min; Globulin 4.2 g/dL (2.2-4.2); Glucose 136 mg/dL (74-106); Lipase 104 U/L (73-393); Potassium 3.5 mmol/L (3.5-5.1); Protein, Total 8.3 g/dL (6.4-8.2); Sodium Level 140 mmol/L (136-145)
== END 2022-03-09 11:52 | disposition home or self-care (01) ==
PROVIDERS: Emergency Provider Emergency Medicine; PCP Nurse Practitioner Primary Care; Visit Provider Emergency Medicine
DX: R10.11 Right upper quadrant pain (principal); F31.9 Bipolar disorder, unspecified; K76.0 Fatty (change of) liver, not elsewhere classified; E87.8 Other disorders of electrolyte and fluid balance, not elsewhere classified; I10 Essential (primary) hypertension; E78.00 Pure hypercholesterolemia, unspecified; Z79.899 Other long term (current) drug therapy; Z87.891 Personal history of nicotine dependence
CPT/HCPCS: 74177; 80053; 81001; 83690; 85025; 96360; 96372; 99283; J7030; Q9967; A4216

== ENCOUNTER 2022-06-07 17:50 | Emergency (ER) | payer MEDICAID, SELFPAY ==
[2022-06-07 17:51] VITALS: BP 157/106; PULSE 70; RESP 15; TEMP 36.2; O2SAT 99; BMI 34.7
--- NOTE | 2022-06-07 18:17 | CT_ITS ---
STUDY: CT ABDOMEN AND PELVIS WITHOUT CONTRAST REASON FOR EXAM: Female, 31 years old. flank pain RADIATION DOSAGE (If Supplied By Facility): CTDIvol = ( 10.45 ) mGy, DLP = ( 777.20 ) mGycm TECHNIQUE: Transaxial images were obtained from the dome of the diaphragm to the symphysis pubis without oral contrast, and without intravenous contrast. Sagittal and coronal images were reconstructed. Individualized dose optimization techniques were used for this CT. COMPARISON: 03/09/2022 FINDINGS: The visualized lung bases are unremarkable. The visualized portions of the heart are within normal limits. There is decreased attenuation of the liver consistent with steatosis. There is non-visualization of the gallbladder, which may be secondary to either contraction or a prior cholecystectomy. Normal spleen. Normal pancreas. Normal bilateral adrenal glands. Normal right kidney. Tiny (1 to 2 mm) nonobstructing stone in the lower pole the left kidney. No hydronephrosis, ureteral stone, ureteral dilatation. Normal visualized stomach. Normal small intestine. Normal colon. The appendix is visualized and appears normal. Normal abdominal aorta. Normal inferior vena cava. Normal retroperitoneum. Normal urinary bladder. Normal abdominal wall. Normal osseous structures. CT/Abdomen/Pelvis without Cont IMPRESSION: Tiny nonobstructing left renal stone. Electronically Signed: Ian Kinney MD at 19:46 EDT ,
--- NOTE | 2022-06-07 18:19 | EDS_ITS ---
HPI History of Present Illness Chief Complaint: Complaint Detail of Chief Complaint: Left flank pain Informant: patient Onset/Context/Timing Onset: Days Context: Gradual Onset Current Severity: Moderate Maximum Severity: Severe Narrative Narrative: Patient presents secondary to dysuria with left flank pain. She was seen by Dr. Lagunas earlier this week for similar symptoms. They were awaiting scheduling a CT. Patient states her symptoms became significantly worse tonight and when she call Dr. Lagunas it was recommended she come to the emergency room. She does report urgency with some dysuria. She reports a severe pain to the left flank. She is been taking ibuprofen and Tylenol at home. She did take 800 mg of ibuprofen 1 hour prior to arrival. [facility] Medical History Alcohol use Anxiety Back pain Bilateral renal stones Bipolar disorder Cardiology follow-up encounter Chronic interstitial cystitis Conversion disorder Depression Easy bruising Endometriosis Environmental and seasonal allergies Fatty liver Fibromyalgia Former smoker Gastric reflux High cholesterol History of cervical cancer History of echocardiogram History of edema History of renal disease History of stress test Hypertension Intermittent self-catheterization of bladder Kidney stone Leg cramps Marijuana use Migraine Peptic ulcer of stomach Rash Restless legs Syncope Wears dentures Wears glasses Home Medications acidophilus 100 million cell-pectin, citrus 10 mg capsule 1 cap PO DAILY 09/22/21 [History Last Taken Unknown] albuterol sulfate 90 mcg/actuation aerosol inhaler (Ventolin HFA) 2 puff inhalation Q6H PRN Shortness Of Breath 09/22/21 [History Last Taken Unknown] aripiprazole 5 mg tablet (Abilify) 5 mg PO QHS 09/22/21 [History Last Taken Unknown] d-mannose 500 mg capsule 1,000 mg PO DAILY 09/22/21 [History Last Taken Unknown] diphenhydramine HCl 50 mg capsule 50 mg PO Q6H PRN Allergic Symptoms 09/22/21 [History Last Taken Unknown] dupilumab 300 mg/2 mL subcutaneous syringe (Dupixent) 300 mg subcut .[id number] 09/22/21 [History Last Taken Unknown] erenumab-aooe 70 mg/mL subcutaneous auto-injector (Aimovig Autoinjector) 70 mg subcut QMONTH migrains 09/22/21 [History Last Taken Unknown] escitalopram oxalate 20 mg tablet (Lexapro) 20 mg PO DAILY 09/22/21 [History Last Taken Unknown] fluticasone propionate 50 mcg/actuation nasal spray,suspension 1 spray intranasal DAILY ALLERGIES 09/22/21 [History Last Taken Unknown] lorazepam 0.5 mg tablet (Ativan) 0.5 mg PO BID PRN Anxiety 09/22/21 [History Last Taken Unknown] mirtazapine 15 mg tablet (Remeron) 15 mg PO QHS 09/22/21 [History Last Taken Unknown] omeprazole 40 mg capsule,delayed release 40 mg PO DAILY 09/22/21 [History Last Taken Unknown] ondansetron HCl 4 mg tablet (Zofran) 4 mg PO Q8H PRN Nausea 09/22/21 [History Last Taken Unknown] tizanidine 4 mg capsule 4 mg PO Q8H PRN Back Pain 09/22/21 [History Last Taken Unknown] propranolol 10 mg tablet 10 mg PO DAILY BP 12/26/21 [History Last Taken Unknown] fexofenadine 60 mg capsule 60 mg PO DAILY 06/07/22 [History Last Taken Unknown] tramadol 50 mg tablet 50 mg PO Q6H PRN pain #10 tabs 06/07/22 [Rx Last Taken Unknown] Allergy/AdvReac Type Severity Reaction Status Date / Time amitriptyline Allergy MUSCLE Verified 06/07/22 17:51 SPASMS Bleach (Sodium Hypochlorite) Allergy Hives Verified 06/07/22 17:51 codeine Allergy Hives Verified 06/07/22 17:51 ketorolac [From Toradol] Allergy Itching Verified 06/07/22 17:51 nitrofurantoin Allergy Anaphylaxis Verified 06/07/22 17:51 [From Macrodantin] doxycycline AdvReac Vomiting Verified 06/07/22 17:51 Family History Mother Hypertension Migraine Grandmother CVA (cerebral vascular accident) Grandfather Diabetes Father Myocardial infarction Surgical History History of hysterectomy Hx of cholecystectomy S/P laparoscopic surgery Social History Smoking Status: Former smoker alcohol intake: current details: occasionally substance use type: does not use caffeine: Yes what type of physical activity do you participate in: walking frequency: 1-2 times per week seatbelt use: always do you feel safe at home: Yes additional social history: Single ROS ROS ED Constitutional Constitutional ED: Denies chills or fever(s) Eyes Eyes: Denies change in vision or discharge from eye(s) ENT ENT ED: Denies discharge from eye(s), rhinorrhea or sore throat Cardiovascular Cardiovascular: Denies chest pain or palpitations Respiratory/Chest Respiratory/Chest: Denies cough or dyspnea Gastrointestinal Gastrointestinal: Reports abdominal pain, nausea and vomiting; Denies diarrhea Genitourinary Genitourinary ED: Reports dysuria and other Details: Urgency ; Denies difficulty urinating Musculoskeletal Musculoskeletal: Reports back pain; Denies extremity pain Integumentary Denies Abrasions or rash Neurologic Neurologic: Denies headache(s) or weakness Psychiatric Psychiatric: Denies anxiety or depression Endocrine Endocrinology: Denies polydipsia or polyuria Allergic/Immunologic Allergic/Immunologic ED: Denies lip swelling or urticaria EXAM Physical Exam Const Vital Signs: 06/07/22 17:51 06/07/22 20:06 Temperature 97.2 F L Temperature Source Temporal Pulse Rate 70 78 Respiratory Rate 15 16 Blood Pressure 157/106 H 134/95 H Blood Pressure Mean 123 108 Pulse Ox 99 100 Oxygen Delivery Method Room Air Room Air Positive well nourished and well developed General Appearance ED: well developed HEENT Reports normocephalic and head/scalp atraumatic Eyes PERRL and EOMs intact bilaterally Neck supple Chest Wall inspection of chest normal and palpation of chest normal Resp normal respiratory effort and clear to auscultation bilaterally Cardio regular rate and regular rhythm GI non-tender Palpation: soft Back/Spine General Back: CVA tenderness bilateral (Left greater than right) Extremity normal to inspection Neuro oriented x3 and no sensory deficits noted Sensorium / Orientation: alert Motor Exam: strength 5/5 throughout Psych mental status grossly normal Skin no rashes or lesions noted MDM MDM MDM Narrative Medical decision making narrative: Patient was given morphine and Zofran. She taken ibuprofen shortly prior to arrival. IV fluids given. Lab work obtained along with urinalysis and CT flank. Lab Data Attestation: I reviewed the patient's lab results. Labs: Laboratory Results - last 24 hr 06/07/22 06/07/22 06/07/22 18:20 18:50 18:50 WBC 7.3 RBC 4.20 Hgb 12.5 Hct 37.0 MCV 88.1 MCH 29.8 MCHC 33.8 RDW Std Deviation 43.3 RDW Coeff of Romario 13.4 Plt Count 243 MPV 11.7 Immature Gran % (Auto) 0.300 Neut % (Auto) 54.3 Lymph % (Auto) 38.6 [place] % (Auto) 5.9 Eos % (Auto) 0.8 Baso % (Auto) 0.1 Absolute Neuts (auto) 4.0 Absolute Lymphs (auto) 2.83 Nucleated RBC % 0 Sodium 141 Potassium 3.7 Chloride 112 H Carbon Dioxide 23.0 Anion Gap 6 BUN 9 Creatinine 0.66 Estim Creat Clear Calc 106.65 Est GFR (MDRD) Af Amer 134 Est GFR (MDRD) Non-Af 111 BUN/Creatinine Ratio 13.7 Glucose 90 Calcium 8.7 Urine Color Yellow Urine Clarity Clear Urine pH 6.5 Ur Specific [place] 1.005 Urine Protein Negative Urine Glucose (UA) Normal Urine Ketones Negative Urine Occult Blood Negative Urine Nitrite Negative Urine Bilirubin Negative Urine Urobilinogen Normal Ur Leukocyte Esterase Negative Urine RBC 0 SEEN Urine WBC 0 SEEN Ur Squamous Epith Cells 0-5 SEEN Urine Bacteria 0 SEEN Urine Mucus 0 SEEN Radiography Diagnostic Testing: Clinical Impression(s) from Imaging Studies Abdomen/Pelvis CT 06/07/22 18:17 IMPRESSION: Tiny nonobstructing left renal stone. Electronically Signed: Ian Kinney MD at 19:46 EDT , Treatment and Re-Evaluation Narrative: CBC and chemistry studies unremarkable. Urinalysis normal. CT flank reveals tiny nonobstructing left renal stone. I did speak with Dr. Lagunas as the patient had called her prior to arrival. She agrees patient can be discharged to home. Patient is requesting something further for pain. I will write her for short course of tramadol. Discharge Plan Triage Chief Complaint: Complaint ED Provider: Makayla Menchaca Dx/Rx/DC Orders Clinical Impression: Flank pain Instructions: ED Flank Pain, Uncertain Cause Prescriptions: New tramadol 50 mg tablet 50 mg PO Q6H PRN (Reason: pain) Qty: 10 0RF No Action propranolol 10 mg tablet 10 mg PO DAILY diphenhydramine HCl 50 mg Capsule 50 mg PO Q6H PRN (Reason: Allergic Symptoms) ondansetron HCl [Zofran] 4 mg Tablet 4 mg PO Q8H PRN (Reason: Nausea) omeprazole 40 mg Capsule,Delayed Release(Dr/Ec) 40 mg PO DAILY lorazepam [Ativan] 0.5 mg Tablet 0.5 mg PO BID PRN (Reason: Anxiety) mirtazapine [Remeron] 15 mg Tablet 15 mg PO QHS albuterol sulfate [Ventolin HFA] 90 mcg/actuation Hfa Aerosol Inhaler 2 puff INHALATION Q6H PRN (Reason: Shortness Of Breath) fluticasone propionate 50 mcg/actuation [place],Suspension 1 spray INTRANASAL DAILY escitalopram oxalate [Lexapro] 20 mg Tablet 20 mg PO DAILY aripiprazole [Abilify] 5 mg Tablet 5 mg PO QHS tizanidine 4 mg Capsule 4 mg PO Q8H PRN (Reason: Back Pain) acidophilus-pectin, citrus 100 million cell-10 mg Capsule 1 cap PO DAILY Dupixent Syringe 300 mg/2 mL Syringe 300 mg SUBCUT .[id number] Rx Instructions: EVERY 2 WEEKS Aimovig Autoinjector 70 mg/mL Auto-Injector 70 mg SUBCUT QMONTH d-mannose 500 mg Capsule 1,000 mg PO DAILY Nettie 60 mg Capsule 60 mg PO DAILY Primary Care Provider: Elizabeth Spear NP Referrals: Jeannette Lagunas MD [Med Staff - Active Staff] - 1 Week if not improving Elizabeth Spear NP, [employer] [Primary Care Provider] - Disposition Disposition: Home, Self Care
[2022-06-07 18:42] LABS: Bacteria 0 SEEN /hpf (None Seen); Mucous, Urine 0 SEEN /hpf (<or=2+); Red Blood Cells-Urine 0 SEEN /hpf (0-5); White Blood Cells 0 SEEN /hpf (0-5)
[2022-06-07] MEDS: 0.9% Normal Saline 1,000 ML 150 ML IV (18:42)
[2022-06-07] MEDS: Ondansetron 4 MG/2 ML Vial IV (18:42)
[2022-06-07] MEDS: Morphine 4 MG/ML Syringe IV (18:42)
[2022-06-07 18:45] LABS: Color, Urine Yellow (Yellow); Glucose, Dipstick Normal (Normal); Ketone-Dipstick Negative (Negative); Leukocyte Esterase-Dipstick Negative /ul (Negative); Nitrite-Dipstick Negative (Negative); Occult Blood-Urine Negative /ul (Negative); Protein-Dipstick Negative (Negative); Specific Gravity, Urine 1.005 (1.002-1.030); Urine Bilirubin Dipstick Negative (Negative); Urine Clarity Clear (Clear); Urine Urobilinogen Normal (Normal); Urine pH 6.5 (5.0 - 8.0)
[2022-06-07 18:53] LABS: Squamous Epithelial Cells - UA 0-5 SEEN /hpf (5-10)
[2022-06-07 18:57] LABS: Absolute Lymphocyte Count 2.83 X10^3/uL (0.83-4.51); Basophil# 0.01 X10^3/uL; Basophil% 0.1 % (0-1); Eosinophil# 0.06 X10^3/uL; Eosinophils% 0.8 % (0-5); Hemoglobin 12.5 g/dL (12.0-15.0); Lymphocyte # 2.83 X10^3/ul (0.83-4.51); Lymphocyte % 38.6 % (19-41); Mean Corp Hgb Conc 33.8 g/dL (32-36); Mean Corpuscular Hgb 29.8 pg (27.0-32.0); Mean Corpuscular Volume 88.1 fL (81-99); Mean Platelet Vol. 11.7 fl (6.2-12.0); Monocyte# 0.43 X10^3/uL; Monocyte% 5.9 % (0-10); NRBC Flagged by Analyzer 0 % (0-5); Neutrophil # 3.98 X10^3/uL (2.7-7.7); Neutrophil % 54.3 % (47-70); Platelet Count 243 K/mm3 (150-450); RBC Distribution Width CV 13.4 % (11.6-14.6); RBC Distribution Width SD 43.3 fl (35.1-43.9); White Blood Count 7.3 K/mm3 (4.4-11.0)
[2022-06-07 19:14] LABS: Anion Gap 6 (5-15); BUN 9 mg/dL (7-18); BUN/Creat Ratio 13.7 RATIO (10-20); Calcium,Total 8.7 mg/dL (8.5-10.1); Chloride 112 mmol/L (98-107); Creatinine, Serum 0.66 mg/dL (0.55-1.02); EST Glomerular Filtration Rate 111 mL/min (>60); Est Glom Filt Rate - Afr Amer 134 mL/min (>60); Estimated Creatinine Clearance 106.65 ml/min; Glucose 90 mg/dL (74-106); Potassium 3.7 mmol/L (3.5-5.1); Sodium Level 141 mmol/L (136-145)
[2022-06-07 20:06] VITALS: BP 134/95; PULSE 78; RESP 16; O2SAT 100
[2022-06-07] MEDS: traMADol 50 MG Tablet 100 MG PO (20:43)
[2022-06-07 20:52] VITALS: BP 148/87; PULSE 92; RESP 15; O2SAT 99
== END 2022-06-07 20:53 | disposition home or self-care (01) ==
PROVIDERS: Emergency Provider Emergency Medicine; PCP Nurse Practitioner Primary Care; Visit Provider Emergency Medicine
DX: R10.9 Unspecified abdominal pain (principal); F31.9 Bipolar disorder, unspecified; N20.0 Calculus of kidney; E78.00 Pure hypercholesterolemia, unspecified; I10 Essential (primary) hypertension; R30.0 Dysuria; R39.15 Urgency of urination; M79.7 Fibromyalgia; K21.9 Gastro-esophageal reflux disease without esophagitis; Z79.899 Other long term (current) drug therapy; Z87.891 Personal history of nicotine dependence
CPT/HCPCS: 74176; 80048; 81001; 85025; 96361; 96374; 96375; 99283; J7030; A4216; J2405

== ENCOUNTER 2022-06-16 14:23 | Emergency (ER) | payer MEDICAID, SELFPAY ==
[2022-06-16 14:24] VITALS: BP 141/109; PULSE 117; RESP 16; TEMP 36.6; O2SAT 97; BMI 33.8
--- NOTE | 2022-06-16 15:02 | EX.ED.DYSGE1 ---
HPI History of Present Illness Chief Complaint: Flank Pain Informant: patient Onset/Context/Timing Onset: Weeks Context: Gradual Onset Timing: Waxes and wanes Current Severity: Mild Maximum Severity: Moderate Narrative Narrative: Patient present secondary to continued flank pain and hematuria. She has been seen in the ER for this previously including on June 07. Patient states that Dr. Lagunas feels that she has a urinary tract infection and put her on Macrobid. She developed a reaction to this medication. She states Dr. Lagunas told her the only medication that cannot be used is through the IV and she needed to come to the emergency room. Patient denies fever. Although she reports hematuria she denies dysuria. She complains of bilateral flank pain left greater than right. [facility] Medical History Alcohol use Anxiety Back pain Bilateral renal stones Bipolar disorder Cardiology follow-up encounter Chronic interstitial cystitis Conversion disorder Depression Easy bruising Endometriosis Environmental and seasonal allergies Fatty liver Fibromyalgia Former smoker Gastric reflux High cholesterol History of cervical cancer History of echocardiogram History of edema History of renal disease History of stress test Hypertension Intermittent self-catheterization of bladder Kidney stone Leg cramps Marijuana use Migraine Peptic ulcer of stomach Rash Restless legs Syncope Wears dentures Wears glasses Home Medications acidophilus 100 million cell-pectin, citrus 10 mg capsule 1 cap PO DAILY 09/22/21 [History Last Taken Unknown] albuterol sulfate 90 mcg/actuation aerosol inhaler (Ventolin HFA) 2 puff inhalation Q6H PRN Shortness Of Breath 09/22/21 [History Last Taken Unknown] aripiprazole 5 mg tablet (Abilify) 5 mg PO QHS 09/22/21 [History Last Taken Unknown] d-mannose 500 mg capsule 1,000 mg PO DAILY 09/22/21 [History Last Taken Unknown] diphenhydramine HCl 50 mg capsule 50 mg PO Q6H PRN Allergic Symptoms 09/22/21 [History Last Taken Unknown] dupilumab 300 mg/2 mL subcutaneous syringe (Dupixent) 300 mg subcut .[id number] 09/22/21 [History Last Taken Unknown] erenumab-aooe 70 mg/mL subcutaneous auto-injector (Aimovig Autoinjector) 70 mg subcut QMONTH migrains 09/22/21 [History Last Taken Unknown] escitalopram oxalate 20 mg tablet (Lexapro) 20 mg PO DAILY 09/22/21 [History Last Taken Unknown] fluticasone propionate 50 mcg/actuation nasal spray,suspension 1 spray intranasal DAILY ALLERGIES 09/22/21 [History Last Taken Unknown] lorazepam 0.5 mg tablet (Ativan) 0.5 mg PO BID PRN Anxiety 09/22/21 [History Last Taken Unknown] mirtazapine 15 mg tablet (Remeron) 15 mg PO QHS 09/22/21 [History Last Taken Unknown] omeprazole 40 mg capsule,delayed release 40 mg PO DAILY 09/22/21 [History Last Taken Unknown] ondansetron HCl 4 mg tablet (Zofran) 4 mg PO Q8H PRN Nausea 09/22/21 [History Last Taken Unknown] tizanidine 4 mg capsule 4 mg PO Q8H PRN Back Pain 09/22/21 [History Last Taken Unknown] propranolol 10 mg tablet 10 mg PO DAILY BP 12/26/21 [History Last Taken Unknown] fexofenadine 60 mg capsule 60 mg PO DAILY 06/07/22 [History Last Taken Unknown] tramadol 50 mg tablet 50 mg PO Q6H PRN pain #10 tabs 06/07/22 [Rx Last Taken Unknown] Allergy/AdvReac Type Severity Reaction Status Date / Time amitriptyline Allergy MUSCLE Verified 06/07/22 17:51 SPASMS Bleach (Sodium Hypochlorite) Allergy Hives Verified 06/07/22 17:51 codeine Allergy Hives Verified 06/07/22 17:51 ketorolac [From Toradol] Allergy Itching Verified 06/07/22 17:51 nitrofurantoin Allergy Anaphylaxis Verified 06/07/22 17:51 [From Macrodantin] doxycycline AdvReac Vomiting Verified 06/07/22 17:51 Family History Mother Hypertension Migraine Grandmother CVA (cerebral vascular accident) Grandfather Diabetes Father Myocardial infarction Surgical History History of hysterectomy Hx of cholecystectomy S/P laparoscopic surgery Social History Smoking Status: Current every day smoker tobacco type: cigarettes and e-cigarettes alcohol intake: current details: occasionally substance use type: does not use caffeine: Yes what type of physical activity do you participate in: walking frequency: 1-2 times per week seatbelt use: always do you feel safe at home: Yes additional social history: Single ROS ROS ED Constitutional Constitutional ED: Denies chills or fever(s) Eyes Eyes: Denies change in vision or discharge from eye(s) ENT ENT ED: Denies discharge from eye(s), rhinorrhea or sore throat Cardiovascular Cardiovascular: Denies chest pain or palpitations Respiratory/Chest Respiratory/Chest: Denies cough or dyspnea Gastrointestinal Gastrointestinal: Reports abdominal pain; Denies diarrhea, nausea or vomiting Genitourinary Genitourinary ED: Reports difficulty urinating and hematuria; Denies dysuria Musculoskeletal Musculoskeletal: Reports back pain; Denies extremity pain Integumentary Denies Abrasions or rash Neurologic Neurologic: Denies headache(s) or weakness Psychiatric Psychiatric: Denies anxiety or depression Allergic/Immunologic Allergic/Immunologic ED: Denies lip swelling or urticaria EXAM Physical Exam Const Vital Signs: 06/16/22 14:24 Temperature 97.9 F Temperature Source Temporal Pulse Rate 117 H Respiratory Rate 16 Blood Pressure 141/109 H Blood Pressure Mean 119 Pulse Ox 97 Oxygen Delivery Method Room Air Positive well nourished and well developed General Appearance ED: well developed HEENT Reports normocephalic and head/scalp atraumatic Eyes PERRL and EOMs intact bilaterally Neck supple Chest Wall inspection of chest normal and palpation of chest normal Resp normal respiratory effort and clear to auscultation bilaterally Cardio regular rate and regular rhythm GI GI Narrative: Mild epigastric tenderness palpation. No guarding or rebound. Auscultation: hypoactive bowel sounds Palpation: soft Back/Spine Back/Spine Narrative: Bilateral CVA tenderness left greater than right. Extremity normal to inspection Neuro oriented x3 and no sensory deficits noted Sensorium / Orientation: alert Motor Exam: strength 5/5 throughout Psych mental status grossly normal Skin no rashes or lesions noted MDM MDM MDM Narrative Medical decision making narrative: Patient given a dose of morphine and Zofran here for pain. Lab work obtained along with urinalysis and CT flank. Lab Data Attestation: I reviewed the patient's lab results. Labs: Laboratory Results - last 24 hr 06/16/22 06/16/22 06/16/22 14:35 14:35 15:13 WBC 7.4 RBC 4.53 Hgb 13.6 Hct 39.5 MCV 87.2 MCH 30.0 MCHC 34.4 RDW Std Deviation 42.6 RDW Coeff of Romario 13.4 Plt Count 256 MPV 12.3 H Immature Gran % (Auto) 0.300 Neut % (Auto) 67.5 Lymph % (Auto) 26.1 [place] % (Auto) 4.3 Eos % (Auto) 1.5 Baso % (Auto) 0.3 Absolute Neuts (auto) 5.0 Absolute Lymphs (auto) 1.94 Nucleated RBC % 0 Sodium 139 Potassium 3.8 Chloride 109 H Carbon Dioxide 24.0 Anion Gap 6 BUN 12 Creatinine 0.88 Estim Creat Clear Calc 79.99 Est GFR (MDRD) Af Amer 95 Est GFR (MDRD) Non-Af 79 BUN/Creatinine Ratio 13.6 Glucose 123 H Calcium 10.0 Serum , Qual Urine Color Yellow Urine Clarity Clear Urine pH 7.0 Ur Specific [place] 1.010 Urine Protein Negative Urine Glucose (UA) Normal Urine Ketones Negative Urine Occult Blood 10 H Urine Nitrite Negative Urine Bilirubin Negative Urine Urobilinogen Normal Ur Leukocyte Esterase Negative Urine RBC 0 SEEN Urine WBC 0 SEEN Ur Squamous Epith Cells 0 SEEN Urine Bacteria 0 SEEN Urine Mucus 0 SEEN 06/16/22 15:16 WBC RBC Hgb Hct MCV MCH MCHC RDW Std Deviation RDW Coeff of Romario Plt Count MPV Immature Gran % (Auto) Neut % (Auto) Lymph % (Auto) [place] % (Auto) Eos % (Auto) Baso % (Auto) Absolute Neuts (auto) Absolute Lymphs (auto) Nucleated RBC % Sodium Potassium Chloride Carbon Dioxide Anion Gap BUN Creatinine Estim Creat Clear Calc Est GFR (MDRD) Af Amer Est GFR (MDRD) Non-Af BUN/Creatinine Ratio Glucose Calcium Serum , Qual NEGATIVE Urine Color Urine Clarity Urine pH Ur Specific [place] Urine Protein Urine Glucose (UA) Urine Ketones Urine Occult Blood Urine Nitrite Urine Bilirubin Urine Urobilinogen Ur Leukocyte Esterase Urine RBC Urine WBC Ur Squamous Epith Cells Urine Bacteria Urine Mucus Radiography Diagnostic Testing: Clinical Impression(s) from Imaging Studies Abdomen/Pelvis CT 06/16/22 15:32 IMPRESSION: Fatty infiltration of the liver. Electronically Signed: Luis Blanco MD at 15:47 EDT , Treatment and Re-Evaluation Narrative: CBC and chemistry studies are unremarkable. Urinalysis shows no sign of infection. CT scan of the flank reveals fatty infiltration of the liver. Chronic small left renal stone noted. No change from prior. No evidence of hydronephrosis. I spoke with Dr. Lagunas. Patient had told me Dr. Lagunas sent her in for IV antibiotics. Dr. Lagunas advises that her urines have been clean since her last culture on June 03. She does not need antibiotics currently. She had told the patient she could come to the office to seed cone picker samples of medication to help with bladder spasm, but no antibiotics are currently indicated. Patient will be discharged at this time with those instructions. Discharge Plan Triage Chief Complaint: Flank Pain ED Provider: Makayla Menchaca Dx/Rx/DC Orders Clinical Impression: Flank pain, Urinary urgency Instructions: ED Flank Pain, Uncertain Cause Prescriptions: No Action propranolol 10 mg tablet 10 mg PO DAILY diphenhydramine HCl 50 mg Capsule 50 mg PO Q6H PRN (Reason: Allergic Symptoms) ondansetron HCl [Zofran] 4 mg Tablet 4 mg PO Q8H PRN (Reason: Nausea) omeprazole 40 mg Capsule,Delayed Release(Dr/Ec) 40 mg PO DAILY lorazepam [Ativan] 0.5 mg Tablet 0.5 mg PO BID PRN (Reason: Anxiety) mirtazapine [Remeron] 15 mg Tablet 15 mg PO QHS albuterol sulfate [Ventolin HFA] 90 mcg/actuation Hfa Aerosol Inhaler 2 puff INHALATION Q6H PRN (Reason: Shortness Of Breath) fluticasone propionate 50 mcg/actuation [place],Suspension 1 spray INTRANASAL DAILY escitalopram oxalate [Lexapro] 20 mg Tablet 20 mg PO DAILY aripiprazole [Abilify] 5 mg Tablet 5 mg PO QHS tizanidine 4 mg Capsule 4 mg PO Q8H PRN (Reason: Back Pain) acidophilus-pectin, citrus 100 million cell-10 mg Capsule 1 cap PO DAILY Dupixent Syringe 300 mg/2 mL Syringe 300 mg SUBCUT .[id number] Rx Instructions: EVERY 2 WEEKS Aimovig Autoinjector 70 mg/mL Auto-Injector 70 mg SUBCUT QMONTH d-mannose 500 mg Capsule 1,000 mg PO DAILY Nettie 60 mg Capsule 60 mg PO DAILY tramadol 50 mg tablet 50 mg PO Q6H PRN (Reason: pain) Qty: 10 0RF Primary Care Provider: Elizabeth Spear NP Referrals: Elizabeth Spear NP, [employer] [Primary Care Provider] - Activity Restrictions/Additional Instructions: Per Dr. Lagunas, you do not currently need antibiotics. You may stop by the office tomorrow to seed cone picker samples of medication to help with bladder spasms and your urinary urgency. Disposition Disposition: Home, Self Care
[2022-06-16 15:22] LABS: Bacteria 0 SEEN /hpf (None Seen); Mucous, Urine 0 SEEN /hpf (<or=2+); Red Blood Cells-Urine 0 SEEN /hpf (0-5); Squamous Epithelial Cells - UA 0 SEEN /hpf (5-10); White Blood Cells 0 SEEN /hpf (0-5)
[2022-06-16] MEDS: Morphine 4 MG/ML Syringe IV (15:23)
[2022-06-16] MEDS: 0.9% Normal Saline 1,000 ML 150 ML IV (15:23)
[2022-06-16] MEDS: Ondansetron 4 MG/2 ML Vial IV (15:24)
[2022-06-16 15:27] LABS: Absolute Lymphocyte Count 1.94 X10^3/uL (0.83-4.51); Basophil# 0.02 X10^3/uL; Basophil% 0.3 % (0-1); Eosinophil# 0.11 X10^3/uL; Eosinophils% 1.5 % (0-5); Hematocrit 39.5 % (37-47); Hemoglobin 13.6 g/dL (12.0-15.0); Lymphocyte # 1.94 X10^3/ul (0.83-4.51); Lymphocyte % 26.1 % (19-41); Mean Corp Hgb Conc 34.4 g/dL (32-36); Mean Corpuscular Volume 87.2 fL (81-99); Mean Platelet Vol. 12.3 fl (6.2-12.0); Monocyte# 0.32 X10^3/uL; Monocyte% 4.3 % (0-10); NRBC Flagged by Analyzer 0 % (0-5); Neutrophil # 5.01 X10^3/uL (2.7-7.7); Neutrophil % 67.5 % (47-70); Platelet Count 256 K/mm3 (150-450); RBC Distribution Width CV 13.4 % (11.6-14.6); RBC Distribution Width SD 42.6 fl (35.1-43.9); Red Blood Count 4.53 M/mm3 (4.2-5.4); White Blood Count 7.4 K/mm3 (4.4-11.0)
[2022-06-16 15:28] LABS: Color, Urine Yellow (Yellow); Glucose, Dipstick Normal (Normal); Ketone-Dipstick Negative (Negative); Leukocyte Esterase-Dipstick Negative /ul (Negative); Nitrite-Dipstick Negative (Negative); Occult Blood-Urine 10 /ul (Negative); Protein-Dipstick Negative (Negative); Urine Bilirubin Dipstick Negative (Negative); Urine Clarity Clear (Clear); Urine Urobilinogen Normal (Normal)
--- NOTE | 2022-06-16 15:32 | CT_ITS ---
STUDY: CT ABDOMEN AND PELVIS WITHOUT CONTRAST REASON FOR EXAM: Female, 31 years old. Left flank pain, uti RADIATION DOSAGE (If Supplied By Facility): CTDIvol = ( 19.79 ) mGy, DLP = ( 985.00 ) mGycm TECHNIQUE: Transaxial images were obtained from the dome of the diaphragm to the symphysis pubis without oral contrast, and without intravenous contrast. Sagittal and coronal images were reconstructed. Individualized dose optimization techniques were used for this CT. COMPARISON: Comparison is made with prior study 06/07/2022. FINDINGS: The visualized lung bases are unremarkable. The visualized portions of the heart are within normal limits. There is decreased attenuation of the liver consistent with steatosis. The patient is status post cholecystectomy. Normal spleen. Normal pancreas. Normal bilateral adrenal glands. Normal right kidney. Stable punctate calcification in the lower pole calyx of the left kidney. Normal visualized stomach. Normal small intestine. Normal colon. The appendix is visualized and appears normal. Normal abdominal aorta. Normal inferior vena cava. Normal retroperitoneum. Normal urinary bladder. There is absence of the uterus consistent with a prior hysterectomy. Normal abdominal wall. Normal osseous structures. CT/Abdomen/Pelvis without Cont IMPRESSION: Fatty infiltration of the liver. Electronically Signed: Luis Blanco MD at 15:47 EDT ,
[2022-06-16 15:39] LABS: Internal QC Validated? YES +Cl - CLEAR BKGD; Pregnancy, Serum, hCG Quali. NEGATIVE Negative
[2022-06-16 15:43] LABS: Anion Gap 6 (5-15); BUN 12 mg/dL (7-18); BUN/Creat Ratio 13.6 RATIO (10-20); Chloride 109 mmol/L (98-107); Creatinine, Serum 0.88 mg/dL (0.55-1.02); EST Glomerular Filtration Rate 79 mL/min (>60); Est Glom Filt Rate - Afr Amer 95 mL/min (>60); Estimated Creatinine Clearance 79.99 ml/min; Glucose 123 mg/dL (74-106); Potassium 3.8 mmol/L (3.5-5.1); Sodium Level 139 mmol/L (136-145)
[2022-06-16 16:41] VITALS: BP 138/97; PULSE 88; RESP 18; O2SAT 97
== END 2022-06-16 16:42 | disposition home or self-care (01) ==
PROVIDERS: Emergency Provider Emergency Medicine; PCP Nurse Practitioner Primary Care; Visit Provider Emergency Medicine
DX: R10.9 Unspecified abdominal pain (principal); F31.9 Bipolar disorder, unspecified; R39.15 Urgency of urination; T50.905A Adverse effect of unspecified drugs, medicaments and biological substances, initial encounter; R31.9 Hematuria, unspecified; I10 Essential (primary) hypertension; E78.00 Pure hypercholesterolemia, unspecified; F41.9 Anxiety disorder, unspecified; F17.210 Nicotine dependence, cigarettes, uncomplicated; Z79.899 Other long term (current) drug therapy
CPT/HCPCS: 74176; 80048; 81001; 84703; 85025; 96361; 96374; 96375; 99283; J7030; A4216; J2405

== ENCOUNTER 2022-07-06 09:41 | Emergency (ER) | payer MEDICAID, SELFPAY ==
[2022-07-06 09:41] VITALS: BP 147/97; PULSE 73; RESP 18; TEMP 36.4; O2SAT 98; BMI 38.0
--- NOTE | 2022-07-06 10:21 | EKG12_ITS ---
Test Reason : ABD PAIN Blood Pressure : / mmHG Vent. Rate : 060 BPM Atrial Rate : 060 BPM P-R Int : 116 ms QRS Dur : 072 ms QT Int : 342 ms P-R-T Axes : 019 016 017 degrees QTc Int : 342 ms Normal sinus rhythm Nonspecific T wave abnormality Abnormal ECG Confirmed by ELVIE SHARP, LEROY ([id number]), video tape editor JAYDEN SANCHES ([id number]) on 07/07/2022 10:22:20 AM Referred By: NEYMAR Confirmed By:LEROY BERMEO MD
--- NOTE | 2022-07-06 10:21 | RAD_ITS ---
STUDY: X-RAY CHEST REASON FOR EXAM: Female, 32 years old. Cough, chest pain TECHNIQUE: Single frontal view of the chest. COMPARISON: None. FINDINGS: The lungs are clear and expanded. There is no demonstrated pleural abnormality. Normal size heart. Normal mediastinum and ever. Normal visualized pulmonary arteries. Normal visualized aortic arch and descending thoracic aorta. Normal visualized thoracic spine. Normal visualized ribs, clavicles, and shoulders. There is no demonstrated abnormality of the visualized soft tissue structures of the upper abdomen. RAD/Chest 1 View (Portable) IMPRESSION: Normal x-ray examination of the chest. Electronically Signed: Josefa Thomson MD at 11:20 EDT ,
--- NOTE | 2022-07-06 10:22 | EX.ED.DYSGE1 ---
HPI History of Present Illness Chief Complaint: Abd Pain Detail of Chief Complaint: Left-sided chest pain and abdominal pain that started yesterday Informant: patient Narrative Narrative: Patient presents the emergency department with complaint of abdominal pain and chest pain. Patient states chest pain started last evening and describes it as sharp and stabbing in the left chest that is worse with deep breath. She never had pain like that before. He denies recent travel or surgery. No history of PE or DVT. Patient has had a cough for a day or 2 that is been mild and nonproductive. She denies any fevers. Patient has had the COVID-vaccine and booster. She denies any COVID exposures. Patient also started with abdominal pain last evening and states that she is thrown up about 8 or 9 times. Patient describes the pain as right upper quadrant and she has had similar pain in the past. Patient has history of fatty liver. She is had a cholecystectomy. She denies urinary symptoms. She denies diarrhea. She denies blood in her stool or black tarry stool. Patient currently rates her pain an 8 or 9 out of 10. Prior similar symptoms: No PFSH PFSH Medical History Alcohol use Anxiety Back pain Bilateral renal stones Bipolar disorder Cardiology follow-up encounter Chronic interstitial cystitis Conversion disorder Depression Easy bruising Endometriosis Environmental and seasonal allergies Fatty liver Fibromyalgia Former smoker Gastric reflux High cholesterol History of cervical cancer History of echocardiogram History of edema History of renal disease History of stress test Hypertension Intermittent self-catheterization of bladder Kidney stone Leg cramps Marijuana use Migraine Peptic ulcer of stomach Rash Restless legs Syncope Wears dentures Wears glasses Home Medications acidophilus 100 million cell-pectin, citrus 10 mg capsule 1 cap PO DAILY 09/22/21 [History Last Taken Unknown] albuterol sulfate 90 mcg/actuation aerosol inhaler (Ventolin HFA) 2 puff inhalation Q6H PRN Shortness Of Breath 09/22/21 [History Last Taken Unknown] aripiprazole 5 mg tablet (Abilify) 5 mg PO QHS 09/22/21 [History Last Taken Unknown] d-mannose 500 mg capsule 1,000 mg PO DAILY 09/22/21 [History Last Taken Unknown] diphenhydramine HCl 50 mg capsule 50 mg PO Q6H PRN Allergic Symptoms 09/22/21 [History Last Taken Unknown] dupilumab 300 mg/2 mL subcutaneous syringe (Dupixent) 300 mg subcut .[id number] 09/22/21 [History Last Taken Unknown] erenumab-aooe 70 mg/mL subcutaneous auto-injector (Aimovig Autoinjector) 70 mg subcut QMONTH migrains 09/22/21 [History Last Taken Unknown] escitalopram oxalate 20 mg tablet (Lexapro) 20 mg PO DAILY 09/22/21 [History Last Taken Unknown] fluticasone propionate 50 mcg/actuation nasal spray,suspension 1 spray intranasal DAILY ALLERGIES 09/22/21 [History Last Taken Unknown] lorazepam 0.5 mg tablet (Ativan) 0.5 mg PO BID PRN Anxiety 09/22/21 [History Last Taken Unknown] mirtazapine 15 mg tablet (Remeron) 15 mg PO QHS 09/22/21 [History Last Taken Unknown] omeprazole 40 mg capsule,delayed release 40 mg PO DAILY 09/22/21 [History Last Taken Unknown] ondansetron HCl 4 mg tablet (Zofran) 4 mg PO Q8H PRN Nausea 09/22/21 [History Last Taken Unknown] tizanidine 4 mg capsule 4 mg PO Q8H PRN Back Pain 09/22/21 [History Last Taken Unknown] propranolol 10 mg tablet 10 mg PO DAILY BP 12/26/21 [History Last Taken Unknown] fexofenadine 60 mg capsule 60 mg PO DAILY 06/07/22 [History Last Taken Unknown] tramadol 50 mg tablet 50 mg PO Q6H PRN pain #10 tabs 06/07/22 [Rx Last Taken Unknown] hydrocodone-acetaminophen 5-325mg 5mg-325mg 1 tab PO Q4H PRN PRN Pain 2 days #10 TABLETS 07/06/22 [Rx Last Taken Unknown] ondansetron 4 mg disintegrating tablet 4 mg PO Q8H PRN PRN Nausea #10 tabs 07/06/22 [Rx Last Taken Unknown] Allergy/AdvReac Type Severity Reaction Status Date / Time amitriptyline Allergy MUSCLE Verified 07/06/22 09:44 SPASMS Bleach (Sodium Hypochlorite) Allergy Hives Verified 07/06/22 09:44 codeine Allergy Hives Verified 07/06/22 09:44 ketorolac [From Toradol] Allergy Itching Verified 07/06/22 09:44 nitrofurantoin Allergy Anaphylaxis Verified 07/06/22 09:44 [From Macrodantin] doxycycline AdvReac Vomiting Verified 07/06/22 09:44 Family History Mother Hypertension Migraine Grandmother CVA (cerebral vascular accident) Grandfather Diabetes Father Myocardial infarction Surgical History History of hysterectomy Hx of cholecystectomy S/P laparoscopic surgery Social History Smoking Status: Current every day smoker tobacco type: cigarettes and e-cigarettes alcohol intake: current details: occasionally substance use type: does not use caffeine: Yes what type of physical activity do you participate in: walking frequency: 1-2 times per week seatbelt use: always do you feel safe at home: Yes additional social history: Single ROS ROS ED Review of Systems ROS Unobtainable: other Constitutional Constitutional ED: Reports lethargy; Denies chills, fever(s), sweats or weight loss Eyes Eyes: Denies blurry vision, change in vision or diplopia ENT ENT ED: Denies rhinorrhea or sore throat Cardiovascular Cardiovascular: Reports chest pain; Denies orthopnea or racing heartbeat Respiratory/Chest Respiratory/Chest: Reports cough; Denies dyspnea, dyspnea on exertion, orthopnea or sputum Gastrointestinal Gastrointestinal: Reports abdominal pain, nausea and vomiting; Denies diarrhea Genitourinary Genitourinary ED: Denies dysuria, hematuria or urinary frequency Musculoskeletal Musculoskeletal: Denies arthralgias, back pain, myalgias or neck pain Integumentary Denies abscess, Abrasions or rash Neurologic Neurologic: Denies headache(s) or weakness Psychiatric Psychiatric: Denies anxiety, depression or suicidal thoughts Endocrine Endocrinology: Denies polydipsia, polyphagia or polyuria Hematologic/Lymphatic Hematologic/Lymphatic: Denies easy bleeding, easy bruising or lymphadenopathy Allergic/Immunologic Allergic/Immunologic ED: Denies mouth swelling, tongue swelling or urticaria EXAM Physical Exam Const Vital Signs: 07/06/22 09:41 07/06/22 12:25 Temperature 97.6 F L Temperature Source Temporal Pulse Rate 73 77 Respiratory Rate 18 16 Blood Pressure 147/97 H 137/100 H Blood Pressure Mean 113 112 Pulse Ox 98 99 Oxygen Delivery Method Room Air Room Air Positive well nourished and well developed General Appearance ED: well developed and NAD HEENT Reports TM's clear and moist mucous membranes normocephalic and atraumatic; Negative for trauma or tenderness Tympanic Membrane ED: Yes TM's clear Eyes PERRL and EOMs intact bilaterally General Eye ED: Negative for pale conjunctiva or scleral icterus Neck no lymphadenopathy, supple and no JVD General: Negative for tenderness Chest Wall inspection of chest normal Chest Narrative: Tenderness palpation over the left anterior chest wall that seems to somewhat reproduce her pain. Chest: Negative for tenderness Resp normal respiratory effort and clear to auscultation bilaterally Effort and Inspection: Negative for respiratory distress or pain with movement Auscultation: Negative for rhonchi, wheezes or diminished lung sounds Cardio regular rate, regular rhythm, S1 normal heart sound, S2 normal heart sound and no murmurs Peripheral Pulses: pulses 2+ throughout GI normal to inspection, nondistended, normoactive bowel sounds, soft to palpation, non-distended and no masses GI Narrative: Tenderness to the upper quadrant on the right. No rebound, rigidity, or peritoneal signs. Back/Spine no CVA tenderness and no thoracic nor lumbar tenderness Extremity normal to inspection General Extremety ED: Negative for edema General Extremity: Negative for edema Neuro oriented x3, CN's II-XII intact bilaterally, no sensory deficits noted and gait normal Sensorium / Orientation: awake, alert, oriented to person, oriented to place and oriented to time Motor Exam: strength 5/5 throughout and strength abnormal Psych mental status grossly normal Skin no rashes or lesions noted and no wounds MDM MDM MDM Narrative Medical decision making narrative: Line established on arrival. Patient was given morphine and Zofran for her pain. Lab work-up was unremarkable other than elevated D-dimer and she did have a CT of the chest that was negative for PE or dissection. At this point she also had a CT scan of the abdomen pelvis that was essentially unremarkable other than the fatty liver. This point etiology of her pain is unclear. She will be discharged to home with a prescription for few [place] for pain. She is advised to follow-up with her primary care physician 3 to 5 days. Lab Data Attestation: I reviewed the patient's lab results. Labs: Laboratory Results - last 24 hr 09/11/22 09/11/22 09/11/22 10:33 10:33 10:33 WBC 8.2 RBC 4.45 Hgb 13.2 Hct 41.0 MCV 92.1 MCH 29.7 MCHC 32.2 RDW Std Deviation 46.1 H RDW Coeff of Romario 13.7 Plt Count 224 MPV 11.4 Immature Gran % (Auto) 0.400 Neut % (Auto) 70.4 H Lymph % (Auto) 23.0 [place] % (Auto) 5.0 Eos % (Auto) 1.0 Baso % (Auto) 0.2 Absolute Neuts (auto) 5.8 Absolute Lymphs (auto) 1.89 Nucleated RBC % 0 D-Dimer Quant (PE/DVT) 0.77 H* Sodium 139 Potassium 3.8 Chloride 105 Carbon Dioxide 27.0 Anion Gap 7 BUN 13 Creatinine 0.84 Estim Creat Clear Calc 79.54 Est GFR (MDRD) Af Amer 101 Est GFR (MDRD) Non-Af 84 BUN/Creatinine Ratio 15.5 Glucose 110 H Calcium 9.5 Total Bilirubin 0.30 AST 37 ALT 51 Alkaline Phosphatase 133 H Troponin I High Sens 37 Total Protein 8.0 Albumin 3.8 Globulin 4.2 Albumin/Globulin Ratio 0.9 Lipase 131 Urine Color Urine Clarity Urine pH Ur Specific [place] Urine Protein Urine Glucose (UA) Urine Ketones Urine Occult Blood Urine Nitrite Urine Bilirubin Urine Urobilinogen Ur Leukocyte Esterase Urine RBC Urine WBC Ur Squamous Epith Cells Urine Bacteria Urine Mucus 07/06/22 10:53 WBC RBC Hgb Hct MCV MCH MCHC RDW Std Deviation RDW Coeff of Romario Plt Count MPV Immature Gran % (Auto) Neut % (Auto) Lymph % (Auto) [place] % (Auto) Eos % (Auto) Baso % (Auto) Absolute Neuts (auto) Absolute Lymphs (auto) Nucleated RBC % D-Dimer Quant (PE/DVT) Sodium Potassium Chloride Carbon Dioxide Anion Gap BUN Creatinine Estim Creat Clear Calc Est GFR (MDRD) Af Amer Est GFR (MDRD) Non-Af BUN/Creatinine Ratio Glucose Calcium Total Bilirubin AST ALT Alkaline Phosphatase Troponin I High Sens Total Protein Albumin Globulin Albumin/Globulin Ratio Lipase Urine Color Yellow Urine Clarity Clear Urine pH 7.0 Ur Specific [place] 1.005 Urine Protein Negative Urine Glucose (UA) Normal Urine Ketones Negative Urine Occult Blood Negative Urine Nitrite Negative Urine Bilirubin Negative Urine Urobilinogen Normal Ur Leukocyte Esterase 25 H Urine RBC 0 SEEN Urine WBC 0 SEEN Ur Squamous Epith Cells 0 SEEN Urine Bacteria 0 SEEN Urine Mucus 0 SEEN Radiography Diagnostic Testing: Clinical Impression(s) from Imaging Studies Chest X-Ray 07/06/22 10:21 IMPRESSION: Normal x-ray examination of the chest. Electronically Signed: Josefa Thomson MD at 11:20 EDT , Chest CTA 07/06/22 11:14 IMPRESSION: No demonstrated pulmonary embolism or arterial dissection. Minimal bibasilar atelectasis and/or scarring. Electronically Signed: Josefa Thomson MD at 12:07 EDT , Abdomen/Pelvis CT 07/06/22 11:15 IMPRESSION: Moderate amount of stool throughout the colon and rectum. Fatty infiltration of the liver. Electronically Signed: Josefa Thomson MD at 12:10 EDT , 1 view chest x-ray obtained interpreted by myself no acute disease process. Radiology in agreement. EKG Initial EKG: Attestation: I personally reviewed and interpreted this EKG as follows: Comments: Sinus rhythm with a ventricular rate of [address] changes Discharge Plan Triage Chief Complaint: Abd Pain ED Provider: Jm Ansari Dx/Rx/DC Orders Clinical Impression: Chest pain, Abdominal pain Instructions: ED Abdominal Pain Unkn Cause Fem, ED Chest Pain, Uncertain Cause Prescriptions: New hydrocodone-acetaminophen [hydrocodone-acetaminophen] 5-325 mg tablet 1 tab PO Q4H PRN PRN (Reason: Pain) 2 Days Qty: 10 0RF ondansetron [ondansetron] 4 mg tablet,disintegrating 4 mg PO Q8H PRN PRN (Reason: Nausea) Qty: 10 0RF No Action propranolol 10 mg tablet 10 mg PO DAILY diphenhydramine HCl 50 mg Capsule 50 mg PO Q6H PRN (Reason: Allergic Symptoms) ondansetron HCl [Zofran] 4 mg Tablet 4 mg PO Q8H PRN (Reason: Nausea) omeprazole 40 mg Capsule,Delayed Release(Dr/Ec) 40 mg PO DAILY lorazepam [Ativan] 0.5 mg Tablet 0.5 mg PO BID PRN (Reason: Anxiety) mirtazapine [Remeron] 15 mg Tablet 15 mg PO QHS albuterol sulfate [Ventolin HFA] 90 mcg/actuation Hfa Aerosol Inhaler 2 puff INHALATION Q6H PRN (Reason: Shortness Of Breath) fluticasone propionate 50 mcg/actuation [place],Suspension 1 spray INTRANASAL DAILY escitalopram oxalate [Lexapro] 20 mg Tablet 20 mg PO DAILY aripiprazole [Abilify] 5 mg Tablet 5 mg PO QHS tizanidine 4 mg Capsule 4 mg PO Q8H PRN (Reason: Back Pain) acidophilus-pectin, citrus 100 million cell-10 mg Capsule 1 cap PO DAILY Dupixent Syringe 300 mg/2 mL Syringe 300 mg SUBCUT .[id number] Rx Instructions: EVERY 2 WEEKS Aimovig Autoinjector 70 mg/mL Auto-Injector 70 mg SUBCUT QMONTH d-mannose 500 mg Capsule 1,000 mg PO DAILY Nettie 60 mg Capsule 60 mg PO DAILY tramadol 50 mg tablet 50 mg PO Q6H PRN (Reason: pain) Qty: 10 0RF Primary Care Provider: Elizabeth Spear NP Referrals: Elizabeth Spear NP, [employer] [facility] [Primary Care Provider] - 3-5 Days Disposition Disposition: Home, Self Care
[2022-07-06 10:47] LABS: Absolute Lymphocyte Count 1.89 X10^3/uL (0.83-4.51); Absolute Neutrophil Count 5.8 X10^3/uL (2.0-7.7); Basophil# 0.02 X10^3/uL; Basophil% 0.2 % (0-1); Eosinophil# 0.08 X10^3/uL; Hemoglobin 13.2 g/dL (12.0-15.0); Lymphocyte # 1.89 X10^3/ul (0.83-4.51); Mean Corp Hgb Conc 32.2 g/dL (32-36); Mean Corpuscular Hgb 29.7 pg (27.0-32.0); Mean Corpuscular Volume 92.1 fL (81-99); Mean Platelet Vol. 11.4 fl (6.2-12.0); Monocyte# 0.41 X10^3/uL; NRBC Flagged by Analyzer 0 % (0-5); Neutrophil # 5.79 X10^3/uL (2.7-7.7); Neutrophil % 70.4 % (47-70); Platelet Count 224 K/mm3 (150-450); RBC Distribution Width CV 13.7 % (11.6-14.6); RBC Distribution Width SD 46.1 fl (35.1-43.9); Red Blood Count 4.45 M/mm3 (4.2-5.4); White Blood Count 8.2 K/mm3 (4.4-11.0)
[2022-07-06] MEDS: Ondansetron 4 MG/2 ML Vial IV (10:49)
[2022-07-06] MEDS: Morphine 4 MG/ML Syringe IV ×2 (10:50→12:34)
[2022-07-06] MEDS: 0.9% Normal Saline 1,000 ML 150 ML IV (10:50)
[2022-07-06 10:59] LABS: Bacteria 0 SEEN /hpf (None Seen); Mucous, Urine 0 SEEN /hpf (<or=2+); Red Blood Cells-Urine 0 SEEN /hpf (0-5); Squamous Epithelial Cells - UA 0 SEEN /hpf (5-10); White Blood Cells 0 SEEN /hpf (0-5)
[2022-07-06 11:02] LABS: ALB/GLOB Ratio 0.9 RATIO (0.9-2.4); AST(SGOT) 37 U/L (15-37); Alanine Aminotransfer ALT/SGPT 51 U/L (13-56); Albumin, Serum 3.8 g/dL (3.2-5.0); Alkaline Phosphatase 133 U/L (45-117); Anion Gap 7 (5-15); BUN 13 mg/dL (7-18); BUN/Creat Ratio 15.5 RATIO (10-20); Calcium,Total 9.5 mg/dL (8.5-10.1); Chloride 105 mmol/L (98-107); Creatinine, Serum 0.84 mg/dL (0.55-1.02); EST Glomerular Filtration Rate 84 mL/min (>60); Est Glom Filt Rate - Afr Amer 101 mL/min (>60); Estimated Creatinine Clearance 79.54 ml/min; Globulin 4.2 g/dL (2.2-4.2); Glucose 110 mg/dL (74-106); Lipase 131 U/L (73-393); Potassium 3.8 mmol/L (3.5-5.1); Sodium Level 139 mmol/L (136-145); Troponin-I HS 37 pg/mL (3.0-54.0)
[2022-07-06 11:09] LABS: D-Dimer Quantitative (DVT/PE) 0.77 FEU/ug/m (0.27-0.49)
--- NOTE | 2022-07-06 11:14 | CT_ITS ---
STUDY: CTA CHEST REASON FOR EXAM: Female, 32 years old. Chest pain RADIATION DOSAGE (If Supplied By Facility): CTDIvol = ( 19.53 ) mGy, DLP = ( 1943.09 ) mGycm TECHNIQUE: The examination was performed with the intravenous administration of IV 100mL Isovue-370. Post-processing of the angiographic images was performed, with multiplanar reformation and 3D reconstruction. Individualized dose optimization techniques were used for this CT. COMPARISON: None. FINDINGS: Normal enhancement of the main pulmonary artery and right and left pulmonary arteries. Normal enhancement of the bilateral peripheral pulmonary arteries. There is no demonstrated pulmonary embolism. Normal thoracic aorta and visualized great vessels. There is no demonstrated aortic dissection. Normal heart and pericardium. There are no coronary artery calcifications. Normal mediastinum. Normal hilar regions. Normal visualized trachea and bronchi. There is minimal bibasilar atelectasis and/or scarring. Normal chest wall structures. Normal osseous structures. There is a separate dedicated CT report of the abdomen and pelvis. CT/CTA Chest W/WO Contrast IMPRESSION: No demonstrated pulmonary embolism or arterial dissection. Minimal bibasilar atelectasis and/or scarring. Electronically Signed: Josefa Thomson MD at 12:07 EDT ,
--- NOTE | 2022-07-06 11:15 | CT_ITS ---
STUDY: CT ABDOMEN AND PELVIS WITH CONTRAST REASON FOR EXAM: Female, 32 years old. Abdominal pain RADIATION DOSAGE (If Supplied By Facility): CTDIvol = ( 19.53 ) mGy, DLP = ( 1943.09 ) mGycm TECHNIQUE: Transaxial images were obtained from the dome of the diaphragm to the symphysis pubis without oral contrast. IV 100mL Isovue-370 was administered. Sagittal and coronal images were reconstructed. Individualized dose optimization techniques were used for this CT. COMPARISON: 06/16/2022 FINDINGS: The lack of intravenous contrast limits evaluation of solid visceral organs. There is decreased attenuation of the liver consistent with steatosis. There is non-visualization of the gallbladder, which may be secondary to either contraction or a prior cholecystectomy. Normal spleen. Normal pancreas. Normal bilateral adrenal glands. Normal right kidney. Normal left kidney. Normal visualized stomach. Normal small intestine. There is a moderate amount of stool throughout the colon and rectum. The appendix is visualized and appears normal. Normal abdominal aorta. Normal inferior vena cava. Normal retroperitoneum. Normal urinary bladder. There is a small umbilical hernia containing fat. Normal osseous structures. CT/Abdomen/Pelvis W IV Cont ONLY IMPRESSION: Moderate amount of stool throughout the colon and rectum. Fatty infiltration of the liver. Electronically Signed: Josefa Thomson MD at 12:10 EDT ,
[2022-07-06 11:16] LABS: Color, Urine Yellow (Yellow); Glucose, Dipstick Normal (Normal); Ketone-Dipstick Negative (Negative); Leukocyte Esterase-Dipstick 25 /ul (Negative); Nitrite-Dipstick Negative (Negative); Occult Blood-Urine Negative /ul (Negative); Protein-Dipstick Negative (Negative); Specific Gravity, Urine 1.005 (1.002-1.030); Urine Bilirubin Dipstick Negative (Negative); Urine Clarity Clear (Clear); Urine Urobilinogen Normal (Normal)
[2022-07-06 12:25] VITALS: BP 137/100; PULSE 77; RESP 16; O2SAT 99
== END 2022-07-06 12:45 | disposition home or self-care (01) ==
PROVIDERS: Emergency Provider Emergency Medicine; PCP Nurse Practitioner Primary Care; Visit Provider Emergency Medicine
DX: R07.9 Chest pain, unspecified (principal); F31.9 Bipolar disorder, unspecified; R10.11 Right upper quadrant pain; E78.00 Pure hypercholesterolemia, unspecified; M79.7 Fibromyalgia; K76.0 Fatty (change of) liver, not elsewhere classified; I10 Essential (primary) hypertension; K21.9 Gastro-esophageal reflux disease without esophagitis; F41.9 Anxiety disorder, unspecified; Z79.899 Other long term (current) drug therapy; F17.210 Nicotine dependence, cigarettes, uncomplicated; F17.290 Nicotine dependence, other tobacco product, uncomplicated; Z90.49 Acquired absence of other specified parts of digestive tract
CPT/HCPCS: 71045; 71275; 74177; 80053; 81001; 83690; 84484; 85025; 85379; 87811; 93005; 96361; 96374; 96375; 99282; J7030; Q9967; A4216; J2405

== ENCOUNTER → 2022-08-01 | Outpatient (CLI) | payer MEDICAID, SELFPAY | END | disposition home or self-care (01) | LOC: LABSPEC 12:08 | PROVIDERS: PCP Nurse Practitioner Primary Care; Referring Provider Urology; Visit Provider Urology | DX: N39.0 Urinary tract infection, site not specified (principal) | CPT/HCPCS: 87077; 87086; 87088; 87186 ==

== ENCOUNTER 2022-08-04 01:06 | Emergency (ER) | payer MEDICAID, SELFPAY ==
[2022-08-04 01:07] VITALS: BP 99/72; PULSE 72; RESP 18; TEMP 36.8; O2SAT 98; BMI 35.8
[2022-08-04 01:12] VITALS: BP 99/72; PULSE 73; RESP 18; O2SAT 98
[2022-08-04] MEDS: 0.9% Normal Saline 1,000 ML 999 ML IV (02:47)
[2022-08-04] MEDS: proCHLORPERazine 10 MG/2 ML Vial 5 MG IV (02:47)
[2022-08-04] MEDS: LORazepam 2 MG/ML Syringe 0.5 MG IV (02:47)
[2022-08-04 02:48] VITALS: BP 101/62; PULSE 88; RESP 16; O2SAT 100
[2022-08-04 03:08] LABS: Absolute Lymphocyte Count 2.45 X10^3/uL (0.83-4.51); Absolute Neutrophil Count 4.6 X10^3/uL (2.0-7.7); Basophil# 0.02 X10^3/uL; Basophil% 0.3 % (0-1); Eosinophil# 0.06 X10^3/uL; Eosinophils% 0.8 % (0-5); Hematocrit 37.4 % (37-47); Hemoglobin 12.5 g/dL (12.0-15.0); Lymphocyte # 2.45 X10^3/ul (0.83-4.51); Lymphocyte % 32.1 % (19-41); Mean Corp Hgb Conc 33.4 g/dL (32-36); Mean Corpuscular Hgb 30.2 pg (27.0-32.0); Mean Corpuscular Volume 90.3 fL (81-99); Mean Platelet Vol. 11.6 fl (6.2-12.0); Monocyte# 0.49 X10^3/uL; Monocyte% 6.4 % (0-10); NRBC Flagged by Analyzer 0 % (0-5); Neutrophil # 4.59 X10^3/uL (2.7-7.7); Neutrophil % 60.1 % (47-70); Platelet Count 210 K/mm3 (150-450); RBC Distribution Width CV 13.2 % (11.6-14.6); RBC Distribution Width SD 43.6 fl (35.1-43.9); Red Blood Count 4.14 M/mm3 (4.2-5.4); White Blood Count 7.6 K/mm3 (4.4-11.0)
[2022-08-04 03:20] LABS: Anion Gap 11 (5-15); BUN 10 mg/dL (7-18); BUN/Creat Ratio 11.5 RATIO (10-20); Chloride 110 mmol/L (98-107); Creatinine, Serum 0.87 mg/dL (0.55-1.02); EST Glomerular Filtration Rate 80 mL/min (>60); Est Glom Filt Rate - Afr Amer 97 mL/min (>60); Estimated Creatinine Clearance 80.16 ml/min; Glucose 113 mg/dL (74-106); Potassium 3.5 mmol/L (3.5-5.1); Sodium Level 144 mmol/L (136-145)
--- NOTE | 2022-08-04 03:41 | EDS_ITS ---
HPI History of Present Illness Chief Complaint: Anxiety Informant: patient Narrative Narrative: Patient is a 32-year-old female with history of migraine headaches, anxiety and kidney stones presenting with persistent left-sided headache as well as cramping and tingling in her extremities. Patient states for the past few days she has been having charley horses in her arms and her legs. She states that she will get cramps in her hands and her calfs and then tingling in her feet and her fingers. She states sometimes her fingers will close up into a fist. She does have a history of anxiety is not sure if this is related. Has had some episodes where she is breathes fast but it does not always correlate with her symptoms. Her headache has been going on for the past few days and her Imitrex is not helping. She denies any fever or chills. Does have associated nausea and vomiting. The headache is on the left side and goes the side of her head behind her eye. Does have some associated nasal congestion. Does not feel like these headaches are significantly different than her previous migraines. Notes that she has an appointment soon for what sounds like lithotripsy by Dr. Villegas but denies any change in her kidney stone issues recently. [facility] Medical History Alcohol use Anxiety Back pain Bilateral renal stones Bipolar disorder Cardiology follow-up encounter Chronic interstitial cystitis Conversion disorder Depression Easy bruising Endometriosis Environmental and seasonal allergies Fatty liver Fibromyalgia Gastric reflux High cholesterol History of cervical cancer History of echocardiogram History of edema History of renal disease History of stress test Hypertension Kidney stone Leg cramps Marijuana use Migraine Peptic ulcer of stomach Restless legs Smoker Syncope Wears dentures Wears glasses Home Medications acidophilus 100 million cell-pectin, citrus 10 mg capsule 1 cap PO DAILY 09/22/21 [History Last Taken Unknown] albuterol sulfate 90 mcg/actuation aerosol inhaler (Ventolin HFA) 2 puff inhalation Q6H PRN Shortness Of Breath 09/22/21 [History Last Taken Unknown] aripiprazole 5 mg tablet (Abilify) 5 mg PO QHS 09/22/21 [History Last Taken Unknown] d-mannose 500 mg capsule 1,000 mg PO DAILY 09/22/21 [History Last Taken Unknown] diphenhydramine HCl 50 mg capsule 50 mg PO Q6H PRN Allergic Symptoms 09/22/21 [History Last Taken Unknown] dupilumab 300 mg/2 mL subcutaneous syringe (Dupixent) 300 mg subcut .[id number] 09/22/21 [History Last Taken Unknown] erenumab-aooe 70 mg/mL subcutaneous auto-injector (Aimovig Autoinjector) 70 mg subcut QMONTH migrains 09/22/21 [History Last Taken Unknown] escitalopram oxalate 20 mg tablet (Lexapro) 20 mg PO DAILY 09/22/21 [History Last Taken Unknown] fluticasone propionate 50 mcg/actuation nasal spray,suspension 1 spray intranasal DAILY ALLERGIES 09/22/21 [History Last Taken Unknown] lorazepam 0.5 mg tablet (Ativan) 0.5 mg PO BID PRN Anxiety 09/22/21 [History Last Taken Unknown] mirtazapine 15 mg tablet (Remeron) 15 mg PO QHS 09/22/21 [History Last Taken Unknown] omeprazole 40 mg capsule,delayed release 40 mg PO DAILY 09/22/21 [History Last Taken Unknown] ondansetron HCl 4 mg tablet (Zofran) 4 mg PO Q8H PRN Nausea 09/22/21 [History Last Taken Unknown] tizanidine 4 mg capsule 4 mg PO Q8H PRN Back Pain 09/22/21 [History Last Taken Unknown] propranolol 10 mg tablet 10 mg PO DAILY BP 12/26/21 [History Last Taken Unknown] fexofenadine 60 mg capsule 60 mg PO DAILY 06/07/22 [History Last Taken Unknown] tramadol 50 mg tablet 50 mg PO Q6H PRN pain #10 tabs 06/07/22 [Rx Last Taken Unknown] hydrocodone-acetaminophen 5-325mg 5mg-325mg 1 tab PO Q4H PRN PRN Pain 2 days #10 TABLETS 07/06/22 [Rx Last Taken Unknown] ondansetron 4 mg disintegrating tablet 4 mg PO Q8H PRN PRN Nausea #10 tabs 07/06/22 [Rx Last Taken Unknown] Allergy/AdvReac Type Severity Reaction Status Date / Time amitriptyline Allergy MUSCLE Verified 08/04/22 01:14 SPASMS Bleach (Sodium Hypochlorite) Allergy Hives Verified 08/04/22 01:14 codeine Allergy Hives Verified 08/04/22 01:14 ketorolac [From Toradol] Allergy Itching Verified 08/04/22 01:14 nitrofurantoin Allergy Anaphylaxis Verified 08/04/22 01:14 [From Macrodantin] doxycycline AdvReac Vomiting Verified 08/04/22 01:14 Family History Mother Hypertension Migraine Grandmother CVA (cerebral vascular accident) Grandfather Diabetes Father Myocardial infarction Surgical History History of cystoscopy History of hysterectomy Hx of cholecystectomy S/P laparoscopic surgery Social History Smoking Status: Current every day smoker tobacco type: cigarettes and e- cigarettes alcohol intake: current details: occasionally substance use type: does not use caffeine: Yes what type of physical activity do you participate in: walking frequency: 1-2 times per week seatbelt use: always do you feel safe at home: Yes additional social history: Single ROS ROS ED Constitutional Constitutional ED: Denies chills or fever(s) Eyes Eyes: Denies blurry vision or change in vision ENT ENT ED: Reports other Details: nasal congestion ; Denies rhinorrhea or sore throat Cardiovascular Cardiovascular: Denies chest pain or palpitations Respiratory/Chest Respiratory/Chest: Denies cough or dyspnea Gastrointestinal Gastrointestinal: Reports nausea and vomiting; Denies abdominal pain, constipation or diarrhea Genitourinary Genitourinary ED: Denies dysuria or hematuria Musculoskeletal Musculoskeletal: Reports back pain and myalgias; Denies arthralgias Integumentary Denies rash Neurologic Neurologic: Reports headache(s) and paresthesias; Denies weakness Psychiatric Psychiatric: Reports anxiety; Denies suicidal ideation or suicidal thoughts Hematologic/Lymphatic Hematologic/Lymphatic: Denies easy bleeding EXAM Physical Exam Const Vital Signs: 08/04/22 01:07 08/04/22 01:12 08/04/22 02:48 Temperature 98.2 F Temperature Source Oral Pulse Rate 72 73 88 Respiratory Rate 18 18 16 Blood Pressure 99/72 99/72 101/62 Blood Pressure Mean 81 81 75 Pulse Ox 98 98 100 Oxygen Delivery Method Room Air Room Air Room Air Positive well nourished, well developed and obese General Appearance ED: well developed and NAD Nutritional Appearance: obese HEENT Reports TM's clear and moist mucous membranes Negative for trauma Tympanic Membrane ED: Yes TM's clear Eyes PERRL and EOMs intact bilaterally Neck supple and no JVD Neck Narrative: No meningeal signs Chest Wall inspection of chest normal Resp normal respiratory effort and clear to auscultation bilaterally Cardio regular rate, regular rhythm and no murmurs GI normal to inspection, nondistended, normoactive bowel sounds and non-tender Extremity normal to inspection Extremity Narrative: 2+ DP and radial pulses General Extremety ED: Negative for edema or tenderness General Extremity: Negative for edema Neuro oriented x3, CN's II-XII intact bilaterally and no sensory deficits noted Motor Exam: strength 5/5 throughout; Negative for general weakness Psych mental status grossly normal Attitude: No agitated Skin no rashes or lesions noted and no wounds MDM MDM MDM Narrative Medical decision making narrative: Patient evaluated for charley horse/muscle spasms and tingling in her hands and feet. I question if this could be related to carpopedal spasm. She does not have any evidence of carpopedal spasm on my exam. Her vital signs are normal. No meningeal signs. I suspect her headache is more associate with her chronic migraines. She has had some nasal congestion so there could be a sinusitis com ponent to it. No severe features to indicate bacterial sinusitis. CBC and BMP as well as magnesium are grossly normal. No electrolyte abnormalities to explain presentation. Patient is given IV fluids, IV Ativan and Compazine for her consultation of symptoms. On repeat evaluation she is resting comfortably and states that she does feel better. Will be discharged home to follow-up with primary care doctor. She denies any meningeal symptoms and I do not think LP or head imaging is indicated especially as she has a normal neurologic exam. Lab Data Attestation: I reviewed the patient's lab results. Labs: Laboratory Results - last 24 hr 08/04/22 08/04/22 02:50 02:50 WBC 7.6 RBC 4.14 L Hgb 12.5 Hct 37.4 MCV 90.3 MCH 30.2 MCHC 33.4 RDW Std Deviation 43.6 RDW Coeff of Romario 13.2 Plt Count 210 MPV 11.6 Immature Gran % (Auto) 0.300 Neut % (Auto) 60.1 Lymph % (Auto) 32.1 [place] % (Auto) 6.4 Eos % (Auto) 0.8 Baso % (Auto) 0.3 Absolute Neuts (auto) 4.6 Absolute Lymphs (auto) 2.45 Nucleated RBC % 0 Sodium 144 Potassium 3.5 Chloride 110 H Carbon Dioxide 23.0 Anion Gap 11 BUN 10 Creatinine 0.87 Estim Creat Clear Calc 80.16 Est GFR (MDRD) Af Amer 97 Est GFR (MDRD) Non-Af 80 BUN/Creatinine Ratio 11.5 Glucose 113 H Calcium 9.0 Magnesium 2.0 Discharge Plan Triage Chief Complaint: Anxiety ED Provider: She Engel Dx/Rx/DC Orders Clinical Impression: Cramp in muscle, Headache, migraine, Paresthesias Instructions: ED, Migraine (Classical), ED Muscle Spasm Prescriptions: No Action propranolol 10 mg tablet 10 mg PO DAILY diphenhydramine HCl 50 mg Capsule 50 mg PO Q6H PRN (Reason: Allergic Symptoms) ondansetron HCl [Zofran] 4 mg Tablet 4 mg PO Q8H PRN (Reason: Nausea) omeprazole 40 mg Capsule,Delayed Release(Dr/Ec) 40 mg PO DAILY lorazepam [Ativan] 0.5 mg Tablet 0.5 mg PO BID PRN (Reason: Anxiety) mirtazapine [Remeron] 15 mg Tablet 15 mg PO QHS albuterol sulfate [Ventolin HFA] 90 mcg/actuation Hfa Aerosol Inhaler 2 puff INHALATION Q6H PRN (Reason: Shortness Of Breath) fluticasone propionate 50 mcg/actuation [place],Suspension 1 spray INTRANASAL DAILY escitalopram oxalate [Lexapro] 20 mg Tablet 20 mg PO DAILY aripiprazole [Abilify] 5 mg Tablet 5 mg PO QHS tizanidine 4 mg Capsule 4 mg PO Q8H PRN (Reason: Back Pain) acidophilus-pectin, citrus 100 million cell-10 mg Capsule 1 cap PO DAILY Dupixent Syringe 300 mg/2 mL Syringe 300 mg SUBCUT .[id number] Rx Instructions: EVERY 2 WEEKS Aimovig Autoinjector 70 mg/mL Auto-Injector 70 mg SUBCUT QMONTH d-mannose 500 mg Capsule 1,000 mg PO DAILY Nettie 60 mg Capsule 60 mg PO DAILY tramadol 50 mg tablet 50 mg PO Q6H PRN (Reason: pain) Qty: 10 0RF hydrocodone-acetaminophen [hydrocodone-acetaminophen] 5-325 mg tablet 1 tab PO Q4H PRN PRN (Reason: Pain) 2 Days Qty: 10 0RF ondansetron [ondansetron] 4 mg tablet,disintegrating 4 mg PO Q8H PRN PRN (Reason: Nausea) Qty: 10 0RF Primary Care Provider: Elizabeth Spear NP Referrals: Elizabeth Spear NP, [facility] [Primary Care Provider] - Activity Restrictions/Additional Instructions: The exact cause of your muscle cramps and tingling is not clear however your lab work-up was largely normal today. Please follow-up with your primary care provider for further evaluation and treatment. Return the emergency room if you have worsening symptoms or further concerns. Disposition Disposition: Home, Self Care
== END 2022-08-04 04:03 | disposition home or self-care (01) ==
PROVIDERS: Emergency Provider Emergency Medicine; PCP Nurse Practitioner Primary Care; Visit Provider Emergency Medicine
DX: R25.2 Cramp and spasm (principal); F31.9 Bipolar disorder, unspecified; F41.9 Anxiety disorder, unspecified; I10 Essential (primary) hypertension; E78.00 Pure hypercholesterolemia, unspecified; R09.81 Nasal congestion; R20.2 Paresthesia of skin; G43.909 Migraine, unspecified, not intractable, without status migrainosus; E66.9 Obesity, unspecified; F17.210 Nicotine dependence, cigarettes, uncomplicated; Z79.899 Other long term (current) drug therapy
CPT/HCPCS: 80048; 83735; 85025; 96361; 96374; 96375; 99282; J7030; A4216

== ENCOUNTER 2022-08-07 05:35 | Day surgery (SDC) | payer MEDICAID, SELFPAY ==
[2022-08-07] VITALS (8 sets, daily range): BP systolic 95–120; BP diastolic 60–71; PULSE 56–74; RESP 14–16; TEMP 36.2–37.2; O2SAT 91–100; BMI 34.5
[2022-08-07] MEDS: Lactated Ringers 1,000 ML 15 ML IV (06:10)
[2022-08-07] MEDS: Cefazolin 2 GM in 0.9% Normal Saline 100 ML IV (07:33)
--- NOTE | 2022-08-07 07:35 | EX.PCM.DISCH ---
Discharge Instructions Diet Discharge Diet: No restrictions Activity Discharge Activity: Return to Normal Activity Dressing / Incision Call your doctor if you observe: Fever of 101 or Higher, Inability to urinate and Inability to have a bowel movement Follow Up Care Please Follow Up With: Jeannette Lagunas MD When: call office for appt Test Results: Test results from this visit will be discussed in further detail at your follow-up appointment, if applicable. Discharge Plan Admission Attending Provider: Jeannette Lagunas Primary Care Provider: Elizabeth Spear NP Discharge Orders/Prescriptions Prescriptions: New oxycodone-acetaminophen [Percocet] 5-325 mg tablet 1 tab PO Q8H PRN (Reason: pain) 3 Days Qty: 10 0RF cephalexin [cephalexin] 500 mg capsule 500 mg PO Q12 3 Days Qty: 6 0RF Continued propranolol 10 mg tablet 10 mg PO DAILY diphenhydramine HCl 50 mg Capsule 50 mg PO Q6H PRN (Reason: Allergic Symptoms) ondansetron HCl [Zofran] 4 mg Tablet 4 mg PO Q8H PRN (Reason: Nausea) omeprazole 40 mg Capsule,Delayed Release(Dr/Ec) 40 mg PO DAILY lorazepam [Ativan] 0.5 mg Tablet 0.5 mg PO BID PRN (Reason: Anxiety) mirtazapine [Remeron] 15 mg Tablet 15 mg PO QHS albuterol sulfate [Ventolin HFA] 90 mcg/actuation Hfa Aerosol Inhaler 2 puff INHALATION Q6H PRN (Reason: Shortness Of Breath) fluticasone propionate 50 mcg/actuation [place],Suspension 1 spray INTRANASAL DAILY escitalopram oxalate [Lexapro] 20 mg Tablet 20 mg PO DAILY aripiprazole [Abilify] 5 mg Tablet 5 mg PO QHS tizanidine 4 mg Capsule 4 mg PO Q8H PRN (Reason: Back Pain) acidophilus-pectin, citrus 100 million cell-10 mg Capsule 1 cap PO DAILY Dupixent Syringe 300 mg/2 mL Syringe 300 mg SUBCUT .[id number] Rx Instructions: EVERY 2 WEEKS Aimovig Autoinjector 70 mg/mL Auto-Injector 70 mg SUBCUT QMONTH d-mannose 500 mg Capsule 1,000 mg PO DAILY fexofenadine 60 mg Capsule 60 mg PO DAILY tramadol 50 mg tablet 50 mg PO Q6H PRN (Reason: pain) Qty: 10 0RF hydrocodone-acetaminophen 5-325 mg tablet 1 tab PO Q4H PRN PRN (Reason: Pain) 2 Days Qty: 10 0RF ondansetron 4 mg tablet,disintegrating 4 mg PO Q8H PRN PRN (Reason: Nausea) Qty: 10 0RF Referrals / Follow Up: Elizabeth Spear BREASTFEEDING EDUCATOR, [facility]FEEDING EDUCATOR-C [Primary Care Provider] - Disposition Disposition (needs filled in before D/C Order can be placed): Home, Self Care
--- NOTE | 2022-08-07 07:37 | PCM.OPRPT ---
Report of Operation Date of Procedure: 08/07/22 Pre-Operative Diagnosis: left renal calculus Post-Operative Diagnosis: same Surgery/Procedure Performed:: Cystoscopy, left ureteroscopy Surgeon: Jeannette Lagunas Type of Anesthesia: General Description of Procedure: The patient is a 32-year-old female who has had multiple stones in the past, found to have a 2 mm left renal calculus and continued left flank pain with no other source. She presents for ureteroscopy and stone basket extraction. Informed consent was obtained. The patient was taken to the operating room and placed on the operating room table. Anesthesia monitored the head, neck, airway, IV access and vital signs throughout the case. Once anesthesia was appropriately administered, the patient was placed into dorsolithotomy position was prepped and draped in usual sterile fashion. The cystoscope was inserted through the urethra under direct visualization into the urinary bladder. The bladder mucosa was found to be within normal limits. The left ureteral orifice was identified and intubated with 2 separate 0.035 Glidewire's. A ureteroscope flexible was passed over the wire with good access to the renal pelvis. The stone was identified stuck to the calyx in the midpole. A basket was used to remove the stone from the calyx and it was so small that the basket did not retain the stone and it was flushed out with the saline from the ureteroscope. It was no longer able to be identified following this. The renal pelvis was flushed as well as possible. Direct visualization of the entire length of the ureter was performed as the ureteroscope exited. There is no evidence of ureteral trauma identified. The patient's bladder was then emptied and the case was terminated. The patient was awakened and taken to the recovery room in good condition. There were no complications during this procedure. Grafts/Implants Used: None Complications None Admit VTE Documentation VTE Present on Admission: Yes VTE Mechan Device Prophylaxis: SCD's VTE Pharm Prophylaxis ordered?: No Reason prophylaxis not ordered:: Treatment Not Indicated
[2022-08-07] MEDS: Phenazopyridine 95 MG Tablet PO (08:43)
[2022-08-07] MEDS: Acetaminophen 325 MG Tablet 650 MG PO (09:03)
== END 2022-08-07 10:00 | disposition home or self-care (01) ==
LOC: SDC 05:36 → AC 05:37
PROVIDERS: PCP Nurse Practitioner Primary Care; Referring Provider Urology; Visit Provider Urology
PROC: (CPT 52352; principal; 2022-08-07 07:20)
DX: N20.0 Calculus of kidney (principal); F31.9 Bipolar disorder, unspecified; E11.9 Type 2 diabetes mellitus without complications; N39.46 Mixed incontinence; R35.1 Nocturia; R33.8 Other retention of urine; I10 Essential (primary) hypertension; E78.5 Hyperlipidemia, unspecified; K21.9 Gastro-esophageal reflux disease without esophagitis; F41.9 Anxiety disorder, unspecified; G89.29 Other chronic pain; M19.90 Unspecified osteoarthritis, unspecified site; J45.909 Unspecified asthma, uncomplicated; R39.198 Other difficulties with micturition; N95.1 Menopausal and female climacteric states; Z79.899 Other long term (current) drug therapy; I25.2 Old myocardial infarction; Z86.73 Personal history of transient ischemic attack (TIA), and cerebral infarction without residual deficits; Z87.891 Personal history of nicotine dependence; Z90.710 Acquired absence of both cervix and uterus
CPT/HCPCS: 52352; 00918; 76000; J7120; J2405

== ENCOUNTER 2022-09-09 11:09 | Emergency (ER) | payer MEDICAID, SELFPAY ==
[2022-09-09 11:10] VITALS: BP 136/74; PULSE 60; RESP 16; TEMP 36.6; O2SAT 100; BMI 34.3
--- NOTE | 2022-09-09 11:29 | EDS_ITS ---
HPI History of Present Illness Chief Complaint: Back Detail of Chief Complaint: Generalized pain Informant: patient and spouse/S.O. Onset/Context/Timing Onset: Days (Thursday, September 02) Context: Sudden Onset Timing: Continuous and Waxes and wanes Quality: Entire back, upper and lower extremities described as pain Location: Generalized Current Severity: Mild Maximum Severity: Moderate Worsened by: Movement Relieved by: Nothing Associated Symptoms Associated Symptoms: Patient reports nausea and vomiting this morning Narrative Narrative: Patient a 32-year-old woman who presents with generalized pain. Initially started lower back then in involve the entire back and now all her extremities. She has history of fibromyalgia. She is on Lyrica for her fibromyalgia. She reports allergy to codeine; however, she has taken Vicodin in the past with no reaction. She denies fever, chills night sweats. She denies headache, visual, ocular auditory symptoms. She denies cardiac respiratory symptoms. GI is positive for nausea vomiting this morning. She denies diarrhea. She denies urologic symptoms. Prior similar symptoms: Yes (Fibromyalgia) Recent Illness/Hospitalization: No PFSH PFS Medical History Alcohol use Anxiety Back pain Bilateral renal stones Bipolar disorder Cardiology follow-up encounter Chronic interstitial cystitis Conversion disorder Depression Easy bruising Endometriosis Environmental and seasonal allergies Fatty liver Fibromyalgia Gastric reflux High cholesterol History of cervical cancer History of echocardiogram History of edema History of renal disease History of stress test Hypertension Kidney stone Left renal stone Leg cramps Marijuana use Migraine Peptic ulcer of stomach Restless legs Smoker Syncope Wears dentures Wears glasses Home Medications acidophilus 100 million cell-pectin, citrus 10 mg capsule 1 cap PO DAILY 09/22/21 [History Last Taken Unknown] albuterol sulfate 90 mcg/actuation aerosol inhaler (Ventolin HFA) 2 puff inhalation Q6H PRN Shortness Of Breath 09/22/21 [History Last Taken Unknown] aripiprazole 5 mg tablet (Abilify) 5 mg PO QHS 09/22/21 [History Last Taken Unknown] d-mannose 500 mg capsule 1,000 mg PO DAILY 09/22/21 [History Last Taken Unknown] diphenhydramine HCl 50 mg capsule 50 mg PO Q6H PRN Allergic Symptoms 09/22/21 [History Last Taken Unknown] dupilumab 300 mg/2 mL subcutaneous syringe ([employer]) 300 mg subcut .[id number] 09/22/21 [History Last Taken Unknown] erenumab-aooe 70 mg/mL subcutaneous auto-injector (Aim[employer]ig Autoinjector) 70 mg subcut QMONTH migrains 09/22/21 [History Last Taken Unknown] escitalopram oxalate 20 mg tablet (Lexapro) 20 mg PO DAILY 09/22/21 [History Last Taken Unknown] fluticasone propionate 50 mcg/actuation nasal spray,suspension 1 spray intranasal DAILY ALLERGIES 09/22/21 [History Last Taken Unknown] lorazepam 0.5 mg tablet (Ativan) 0.5 mg PO BID PRN Anxiety 09/22/21 [History Last Taken Unknown] mirtazapine 15 mg tablet (Remeron) 15 mg PO QHS 09/22/21 [History Last Taken Unknown] omeprazole 40 mg capsule,delayed release 40 mg PO DAILY 09/22/21 [History Last Taken Unknown] ondansetron HCl 4 mg tablet (Zofran) 4 mg PO Q8H PRN Nausea 09/22/21 [History Last Taken Unknown] tizanidine 4 mg capsule 4 mg PO Q8H PRN Back Pain 09/22/21 [History Last Taken Unknown] propranolol 10 mg tablet 10 mg PO DAILY BP 12/26/21 [History Last Taken Unknown] fexofenadine 60 mg capsule 60 mg PO DAILY 06/07/22 [History Last Taken Unknown] tramadol 50 mg tablet 50 mg PO Q6H PRN pain #10 tabs 06/07/22 [Rx Last Taken Unknown] hydrocodone-acetaminophen 5-325mg 5mg-325mg 1 tab PO Q4H PRN PRN Pain 2 days #10 TABLETS 07/06/22 [Rx Last Taken Unknown] ondansetron 4 mg disintegrating tablet 4 mg PO Q8H PRN PRN Nausea #10 tabs 09/16 [Rx Last Taken Unknown] cephalexin 500 mg capsule 500 mg PO Q12 post-operative 3 days #6 CAPSULES 08/07/22 [Rx Last Taken Unknown] oxycodone-acetaminophen 5 mg-325 mg tablet (Percocet) 1 tab PO Q8H PRN pain 3 days #10 tabs 08/07/22 [Rx Last Taken Unknown] hydrocodone-acetaminophen 5-325mg 5mg-325mg 1 tab PO Q6H PRN PRN Pain 3 days #10 TABLETS 09/09/22 [Rx Last Taken Unknown] Allergy/AdvReac Type Severity Reaction Status Date / Time amitriptyline Allergy MUSCLE Verified 09/09/22 11:09 SPASMS Bleach (Sodium Hypochlorite) Allergy Hives Verified 09/09/22 11:09 codeine Allergy Hives Verified 09/09/22 11:09 ketorolac [From Toradol] Allergy Itching Verified 09/09/22 11:09 nitrofurantoin Allergy Anaphylaxis Verified 09/09/22 11:09 [From Macrodantin] doxycycline AdvReac Vomiting Verified 09/09/22 11:09 Family History Mother Hypertension Migraine Grandmother CVA (cerebral vascular accident) Grandfather Diabetes Father Myocardial infarction Surgical History History of cystoscopy History of hysterectomy Hx of cholecystectomy S/P laparoscopic surgery Social History (Updated 09/09/22 @ 11:[address] Rayray Irving MD) household members: significant other Smoking Status: Current every day smoker tobacco type: cigarettes and e- cigarettes alcohol intake: current details: occasionally substance use type: does not use caffeine: Yes what type of physical activity do you participate in: walking frequency: 1-2 times per week seatbelt use: always do you feel safe at home: Yes additional social history: Single ROS ROS ED Constitutional Constitutional ED: Denies chills, fever(s), subjective, sweats or weight loss Eyes Eyes: Denies blurry vision, change in vision or diplopia ENT ENT ED: Denies ear pain, rhinorrhea or sore throat Cardiovascular Cardiovascular: Denies chest pain or palpitations Respiratory/Chest Respiratory/Chest: Denies cough, dyspnea or dyspnea on exertion Gastrointestinal Gastrointestinal: Reports nausea and vomiting; Denies abdominal pain, diarrhea or melena Genitourinary Genitourinary ED: Denies dysuria, hematuria or urinary frequency Musculoskeletal Musculoskeletal: Reports arthralgias, back pain, myalgias and neck pain Integumentary Denies Abrasions or rash Neurologic Neurologic: Denies headache(s), paresthesias or weakness Psychiatric Psychiatric: Reports depression; Denies suicidal ideation Hematologic/Lymphatic Hematologic/Lymphatic: Denies easy bleeding or easy bruising EXAM Physical Exam Const Vital Signs: 09/09/22 11:10 Temperature 97.9 F Temperature Source Temporal Pulse Rate 60 Respiratory Rate 16 Blood Pressure 136/74 H Blood Pressure Mean 94 Pulse Ox 100 Oxygen Delivery Method Room Air Positive well nourished, well developed and obese General Appearance ED: well developed and NAD; Negative for cyanotic, diaphoretic or pallor Nutritional Appearance: obese HEENT Reports moist mucous membranes HEENT Narrative: Head is atraumatic normocephalic. Ears normal. Nares patent. Uvula midline. No deviation with attrition. No erythema exudate the posterior pharynx. Eyes PERRL and EOMs intact bilaterally General Eye ED: Negative for pale conjunctiva or scleral icterus Neck no lymphadenopathy, supple and no JVD Chest Wall inspection of chest normal and palpation of chest normal Chest Narrative: Complains of pain with palpation of the chest wall. Resp normal respiratory effort and clear to auscultation bilaterally Cardio regular rate, regular rhythm, S1 normal heart sound, S2 normal heart sound and no murmurs GI normal to inspection, nondistended, normoactive bowel sounds, non-tender, non- distended and no masses; Negative for hepatosplenomegaly Back/Spine no CVA tenderness Back/Spine Narrative: Patient has painful patient the entire back. No point tenderness over the spinous process of the cervical, dorsal or lumbar vertebrae Cervical Spine: Negative for cervical spine tenderness Thoracic Spine / Upper Back: Negative for thoracic spinal tenderness Lumbar Spine / Lower Back: Negative for lumbar spinal tenderness Extremity normal to inspection General Extremety ED: Negative for edema or tenderness General Extremity: Negative for edema Neuro oriented x3, CN's II-XII intact bilaterally and no sensory deficits noted Neuro Narrative: Bicep, brachialis, tricep, patella and ankle reflex are 2+ symmetric. There is no clonus or Babinski sign noted. Sensorium / Orientation: alert Motor Exam: strength 5/5 throughout Psych Mood & Affect: depressed Skin no rashes or lesions noted, no wounds and skin turgor normal General Skin Exam: Negative for jaundice or pallor MDM MDM MDM Narrative Medical decision making narrative: Patient's history and physical consistent with fibromyalgia pain. We will treat with oral pain meds and discharged home. Discharge Plan Triage Chief Complaint: Back ED Provider: Rayray Irving Dx/Rx/DC Orders Clinical Impression: Fibromyalgia muscle pain Instructions: ED Fibromyalgia Prescriptions: New hydrocodone-acetaminophen [hydrocodone-acetaminophen] 5-325 mg tablet 1 tab PO Q6H PRN PRN (Reason: Pain) 3 Days Qty: 10 0RF No Action propranolol 10 mg tablet 10 mg PO DAILY diphenhydramine HCl 50 mg Capsule 50 mg PO Q6H PRN (Reason: Allergic Symptoms) ondansetron HCl [Zofran] 4 mg Tablet 4 mg PO Q8H PRN (Reason: Nausea) omeprazole 40 mg Capsule,Delayed Release(Dr/Ec) 40 mg PO DAILY lorazepam [Ativan] 0.5 mg Tablet 0.5 mg PO BID PRN (Reason: Anxiety) mirtazapine [Remeron] 15 mg Tablet 15 mg PO QHS albuterol sulfate [Ventolin HFA] 90 mcg/actuation Hfa Aerosol Inhaler 2 puff INHALATION Q6H PRN (Reason: Shortness Of Breath) fluticasone propionate 50 mcg/actuation [place],Suspension 1 spray INTRANASAL DAILY escitalopram oxalate [Lexapro] 20 mg Tablet 20 mg PO DAILY aripiprazole [Abilify] 5 mg Tablet 5 mg PO QHS tizanidine 4 mg Capsule 4 mg PO Q8H PRN (Reason: Back Pain) acidophilus-pectin, citrus 100 million cell-10 mg Capsule 1 cap PO DAILY Dupixent Syringe 300 mg/2 mL Syringe 300 mg SUBCUT .[id number] Rx Instructions: EVERY 2 WEEKS [employer] Autoinjector 70 mg/mL Auto-Injector 70 mg SUBCUT QMONTH d-mannose 500 mg Capsule 1,000 mg PO DAILY fexofenadine 60 mg Capsule 60 mg PO DAILY tramadol 50 mg tablet 50 mg PO Q6H PRN (Reason: pain) Qty: 10 0RF hydrocodone-acetaminophen 5-325 mg tablet 1 tab PO Q4H PRN PRN (Reason: Pain) 2 Days Qty: 10 0RF ondansetron 4 mg tablet,disintegrating 4 mg PO Q8H PRN PRN (Reason: Nausea) Qty: 10 0RF oxycodone-acetaminophen [Percocet] 5-325 mg tablet 1 tab PO Q8H PRN (Reason: pain) 3 Days Qty: 10 0RF cephalexin [cephalexin] 500 mg capsule 500 mg PO Q12 3 Days Qty: 6 0RF Primary Care Provider: Elizabeth Spear NP Referrals: Elizabeth Spear NP, [employer] [Primary Care Provider] - 3-5 Days if not improving Disposition Disposition: Home, Self Care
[2022-09-09] MEDS: Ondansetron ODT 4 MG Tablet PO (11:38)
[2022-09-09] MEDS: HYDROcodone Bitartrate/Apap 5/325 Tablet PO (11:38)
== END 2022-09-09 11:46 | disposition home or self-care (01) ==
LOC: ED 11:41
PROVIDERS: Emergency Provider Emergency Medicine; PCP Nurse Practitioner Primary Care; Visit Provider Emergency Medicine
DX: M79.7 Fibromyalgia (principal); R11.2 Nausea with vomiting, unspecified; I10 Essential (primary) hypertension; E78.00 Pure hypercholesterolemia, unspecified; E66.9 Obesity, unspecified; F17.210 Nicotine dependence, cigarettes, uncomplicated
CPT/HCPCS: 99283

== ENCOUNTER 2022-09-13 20:30 | Emergency (ER) | payer MEDICAID, SELFPAY ==
[2022-09-13 20:31] VITALS: BP 141/92; PULSE 93; RESP 18; TEMP 36.7; O2SAT 98; BMI 33.5
--- NOTE | 2022-09-13 22:46 | EX.ED.DYSGE1 ---
HPI History of Present Illness Chief Complaint: Back Informant: patient Narrative Narrative: Patient complains of exacerbation of her fibromyalgia pain. She states she has pain across her neck shoulders down arms legs back. These are all areas that she normally has with her fibromyalgia. But she states it is worse. She was seeing pain management. But she signed off of them yesterday at her visit. She states they did not do anything or give her anything. But they did actually give her tizanidine. But she has not taken it. She was seen here recently for some pains. She received I believe hydrocodone. She is on Lyrica also. She has not been having fevers or chills. No headache. No numbness tingling weakness. No nausea vomiting. She did state that she occasionally has a dry cough but is not short of breath. No chest pain. PFSH [facility] Medical History Alcohol use Anxiety Back pain Bilateral renal stones Bipolar disorder Cardiology follow-up encounter Chronic interstitial cystitis Conversion disorder Depression Easy bruising Endometriosis Environmental and seasonal allergies Fatty liver Fibromyalgia Gastric reflux High cholesterol History of cervical cancer History of echocardiogram History of edema History of renal disease History of stress test Hypertension Kidney stone Left renal stone Leg cramps Marijuana use Migraine Peptic ulcer of stomach Restless legs Smoker Syncope Wears dentures Wears glasses Home Medications acidophilus 100 million cell-pectin, citrus 10 mg capsule 1 cap PO DAILY 09/22/21 [History Last Taken Unknown] albuterol sulfate 90 mcg/actuation aerosol inhaler (Ventolin HFA) 2 puff inhalation Q6H PRN Shortness Of Breath 09/22/21 [History Last Taken Unknown] aripiprazole 5 mg tablet (Abilify) 5 mg PO QHS 09/22/21 [History Last Taken Unknown] d-mannose 500 mg capsule 1,000 mg PO DAILY 09/22/21 [History Last Taken Unknown] diphenhydramine HCl 50 mg capsule 50 mg PO Q6H PRN Allergic Symptoms 09/22/21 [History Last Taken Unknown] dupilumab 300 mg/2 mL subcutaneous syringe (Dupixent) 300 mg subcut .[id number] 09/22/21 [History Last Taken Unknown] erenumab-aooe 70 mg/mL subcutaneous auto-injector ([employer] Autoinjector) 70 mg subcut QMONTH migrains 09/22/21 [History Last Taken Unknown] escitalopram oxalate 20 mg tablet (Lexapro) 20 mg PO DAILY 09/22/21 [History Last Taken Unknown] fluticasone propionate 50 mcg/actuation nasal spray,suspension 1 spray intranasal DAILY ALLERGIES 09/22/21 [History Last Taken Unknown] lorazepam 0.5 mg tablet (Ativan) 0.5 mg PO BID PRN Anxiety 09/22/21 [History Last Taken Unknown] mirtazapine 15 mg tablet (Remeron) 15 mg PO QHS 09/22/21 [History Last Taken Unknown] omeprazole 40 mg capsule,delayed release 40 mg PO DAILY 09/22/21 [History Last Taken Unknown] ondansetron HCl 4 mg tablet (Zofran) 4 mg PO Q8H PRN Nausea 09/22/21 [History Last Taken Unknown] tizanidine 4 mg capsule 4 mg PO Q8H PRN Back Pain 09/22/21 [History Last Taken Unknown] propranolol 10 mg tablet 10 mg PO DAILY BP 12/26/21 [History Last Taken Unknown] fexofenadine 60 mg capsule 60 mg PO DAILY 06/07/22 [History Last Taken Unknown] tramadol 50 mg tablet 50 mg PO Q6H PRN pain #10 tabs 06/07/22 [Rx Last Taken Unknown] hydrocodone-acetaminophen 5-325mg 5mg-325mg 1 tab PO Q4H PRN PRN Pain 2 days #10 TABLETS 07/06/22 [Rx Last Taken Unknown] ondansetron 4 mg disintegrating tablet 4 mg PO Q8H PRN PRN Nausea #10 tabs 07/06/22 [Rx Last Taken Unknown] cephalexin 500 mg capsule 500 mg PO Q12 post-operative 3 days #6 CAPSULES 08/07/22 [Rx Last Taken Unknown] oxycodone-acetaminophen 5 mg-325 mg tablet (Percocet) 1 tab PO Q8H PRN pain 3 days #10 tabs 08/07/22 [Rx Last Taken Unknown] hydrocodone-acetaminophen 5-325mg 5mg-325mg 1 tab PO Q6H PRN PRN Pain 3 days #10 TABLETS 09/09/22 [Rx Last Taken Unknown] naproxen 500 mg tablet 500 mg PO BID #14 tabs 09/13/22 [Rx Last Taken Unknown] Allergy/AdvReac Type Severity Reaction Status Date / Time amitriptyline Allergy MUSCLE Verified 09/13/22 20:35 SPASMS Bleach (Sodium Hypochlorite) Allergy Hives Verified 09/13/22 20:35 codeine Allergy Hives Verified 09/13/22 20:35 ketorolac [From Toradol] Allergy Itching Verified 09/13/22 20:35 nitrofurantoin Allergy Anaphylaxis Verified 09/13/22 20:35 [From Macrodantin] doxycycline AdvReac Vomiting Verified 09/13/22 20:35 Family History Mother Hypertension Migraine Grandmother CVA (cerebral vascular accident) Grandfather Diabetes Father Myocardial infarction Surgical History History of cystoscopy History of hysterectomy Hx of cholecystectomy S/P laparoscopic surgery Social History household members: significant other Smoking Status: Current every day smoker tobacco type: cigarettes and e-cigarettes alcohol intake: current details: occasionally substance use type: does not use caffeine: Yes what type of physical activity do you participate in: walking frequency: 1-2 times per week seatbelt use: always do you feel safe at home: Yes additional social history: Single ROS ROS ED Constitutional Constitutional ED: Denies chills, fever(s) or sweats Eyes Eyes: Denies diplopia ENT ENT ED: Denies rhinorrhea or sore throat Cardiovascular Cardiovascular: Denies chest pain, palpitations or racing heartbeat Respiratory/Chest Respiratory/Chest: Reports cough; Denies dyspnea, dyspnea on exertion or sputum Gastrointestinal Gastrointestinal: Denies abdominal pain, diarrhea, nausea or vomiting Genitourinary Genitourinary ED: Denies dysuria or hematuria Musculoskeletal Musculoskeletal: Reports myalgias Integumentary Denies rash Neurologic Neurologic: Denies headache(s), paresthesias or weakness Endocrine Endocrinology: Denies polydipsia or polyuria Hematologic/Lymphatic Hematologic/Lymphatic: Denies easy bleeding or easy bruising Allergic/Immunologic Allergic/Immunologic ED: Denies urticaria EXAM Physical Exam Const Vital Signs: 09/13/22 20:31 Temperature 98.1 F Temperature Source Temporal Pulse Rate 93 Respiratory Rate 18 Blood Pressure 141/92 H Blood Pressure Mean 108 Pulse Ox 98 Oxygen Delivery Method Room Air Positive well nourished and well developed General Appearance ED: well developed and NAD; Negative for cyanotic or diaphoretic HEENT Reports moist mucous membranes HEENT Narrative: No sinus tenderness. No rashes Negative for tenderness Eyes EOMs intact bilaterally General Eye ED: Negative for scleral icterus Neck no lymphadenopathy Neck Narrative: No meningismus. She does have some muscular tenderness at the base of the neck on both sides. But this is similar to the muscular tenderness she has on a lot of her body. Chest Wall inspection of chest normal Resp normal respiratory effort and clear to auscultation bilaterally Cardio regular rate, regular rhythm and no murmurs Rate: other Other Details: I hear no murmur or muffled heart tones. Peripheral pulses are equal and normal GI normal to inspection, nondistended, normoactive bowel sounds and non-tender Back/Spine no CVA tenderness Back/Spine Narrative: No isolated CVA tenderness. She has muscular soreness across her shoulders back arms and a little bit of the legs. There is no difference between the areas. Extremity normal to inspection Extremity Narrative: No edema or cords. No swelling. There is a small skin lesion about a centimeter round on the left anterior parra that looks like an abrasion that is healing. No other areas that I see Neuro oriented x3 and no sensory deficits noted Sensorium / Orientation: alert; Negative for orientation impaired, lethargic or stuporous Motor Exam: strength 5/5 throughout Psych mental status grossly normal Skin Skin Narrative: As above. I do not see any [place] nodes or [place] lesions or splinter hemorrhages. MDM MDM MDM Narrative Medical decision making narrative: Patient stating this is like her fibromyalgia but worse. Same type of pain but just increased. I did do an influenza screen because she has had a mild nonspecific cough. But this is negative. I explained to the patient that I cannot prescribe controlled substances. I will give her a hydrocodone here which she has used before. I will write for Naprosyn. Although she has allergy to Toradol she can take [id number] Aleve or ibuprofen without difficulty. She will need to see her physician or pain management physician for ongoing care. I do not see signs or any indication of rhabdomyolysis. No sign of infectious etiology. I see no neurologic deficit. She is concerned that she does not want to be paralyzed by fibromyalgia because she has a family member who evidently has paralysis from fibromyalgia. I see no indication of paralysis or Guillain-Almanzar? at this time. I believe the patient is safe for discharge Discharge Plan Triage Chief Complaint: Back ED Provider: Brandon Velasquez Dx/Rx/DC Orders Clinical Impression: Fibromyalgia muscle pain Instructions: ED Myalgias, ED Fibromyalgia Prescriptions: New naproxen 500 mg tablet 500 mg PO BID Qty: 14 0RF No Action propranolol 10 mg tablet 10 mg PO DAILY diphenhydramine HCl 50 mg Capsule 50 mg PO Q6H PRN (Reason: Allergic Symptoms) ondansetron HCl [Zofran] 4 mg Tablet 4 mg PO Q8H PRN (Reason: Nausea) omeprazole 40 mg Capsule,Delayed Release(Dr/Ec) 40 mg PO DAILY lorazepam [Ativan] 0.5 mg Tablet 0.5 mg PO BID PRN (Reason: Anxiety) mirtazapine [Remeron] 15 mg Tablet 15 mg PO QHS albuterol sulfate [Ventolin HFA] 90 mcg/actuation Hfa Aerosol Inhaler 2 puff INHALATION Q6H PRN (Reason: Shortness Of Breath) fluticasone propionate 50 mcg/actuation [place],Suspension 1 spray INTRANASAL DAILY escitalopram oxalate [Lexapro] 20 mg Tablet 20 mg PO DAILY aripiprazole [Abilify] 5 mg Tablet 5 mg PO QHS tizanidine 4 mg Capsule 4 mg PO Q8H PRN (Reason: Back Pain) acidophilus-pectin, citrus 100 million cell-10 mg Capsule 1 cap PO DAILY Dupixent Syringe 300 mg/2 mL Syringe 300 mg SUBCUT .[id number] Rx Instructions: EVERY 2 WEEKS [employer] Autoinjector 70 mg/mL Auto-Injector 70 mg SUBCUT QMONTH d-mannose 500 mg Capsule 1,000 mg PO DAILY fexofenadine 60 mg Capsule 60 mg PO DAILY tramadol 50 mg tablet 50 mg PO Q6H PRN (Reason: pain) Qty: 10 0RF hydrocodone-acetaminophen 5-325 mg tablet 1 tab PO Q4H PRN PRN (Reason: Pain) 2 Days Qty: 10 0RF ondansetron 4 mg tablet,disintegrating 4 mg PO Q8H PRN PRN (Reason: Nausea) Qty: 10 0RF oxycodone-acetaminophen [Percocet] 5-325 mg tablet 1 tab PO Q8H PRN (Reason: pain) 3 Days Qty: 10 0RF cephalexin [cephalexin] 500 mg capsule 500 mg PO Q12 3 Days Qty: 6 0RF hydrocodone-acetaminophen [hydrocodone-acetaminophen] 5-325 mg tablet 1 tab PO Q6H PRN PRN (Reason: Pain) 3 Days Qty: 10 0RF Primary Care Provider: Elizabeth Spear NP Referrals: Elizabeth Spear NP, TELEPHONE ORDER CLERK-C [Primary Care Provider] - As soon as possible Disposition Disposition: Home, Self Care
[2022-09-13] MEDS: HYDROcodone Bitartrate/Apap 5/325 Tablet PO (23:34)
[2022-09-13 23:38] VITALS: BP 141/92; PULSE 80; RESP 18; O2SAT 98
== END 2022-09-13 23:39 | disposition home or self-care (01) ==
PROVIDERS: Emergency Provider Emergency Medicine; PCP Nurse Practitioner Primary Care; Visit Provider Emergency Medicine
DX: M79.7 Fibromyalgia (principal); I10 Essential (primary) hypertension; E78.00 Pure hypercholesterolemia, unspecified; F17.210 Nicotine dependence, cigarettes, uncomplicated; F17.290 Nicotine dependence, other tobacco product, uncomplicated; Z79.899 Other long term (current) drug therapy
CPT/HCPCS: 87804; 99283

== ENCOUNTER 2022-10-04 19:02 | Emergency (ER) | payer MEDICAID, SELFPAY ==
[2022-10-04 19:03] VITALS: BP 146/107; PULSE 87; RESP 16; TEMP 36.6; O2SAT 97; BMI 34.3
--- NOTE | 2022-10-04 19:34 | ED.VIS.GI ---
HPI HPI - GI History of Present Illness Chief Complaint: Nausea/Vomiting Informant: patient and spouse/S.O. Abdominal Pain/Flank Pain Onset: Days Context: Gradual Onset Timing: Continuous Quality: Aching Location: RUQ Current Severity: Mild Maximum Severity: Mild Worsened by: Nothing Relieved by: Nothing Nausea/Vomiting/Emesis GI Symptom: Positive for Nausea and Vomiting Onset: Days Quality: Positive for Nonbilious Severity: Mild Diarrhea/Melena/Hematochezia GI Symptom: Positive for Diarrhea; Negative for Melena or Hematochezia Onset: Days Stool Quality: Positive for Loose Severity: Mild Associated Symptoms Associated Symptoms: Negative for Dysuria, Frequency, Hematuria or Urgency Narrative Narrative: 32-year-old female history of cholecystectomy and prior hysterectomy complete secondary to endometriosis. Fatty liver disease and kidney stones. Since she has had nausea, vomiting diarrhea, fever and abdominal cramping. She attempted Bentyl at home without any relief. She denies any melena or hematemesis. No dysuria. She has had symptoms like this before. Prior similar symptoms: Yes Recent Illness/Hospitalization: No PFSH PFSH Medical History Alcohol use Anxiety Back pain Bilateral renal stones Bipolar disorder Cardiology follow-up encounter Chronic interstitial cystitis Conversion disorder Depression Easy bruising Endometriosis Environmental and seasonal allergies Fatty liver Fibromyalgia Gastric reflux High cholesterol History of cervical cancer History of echocardiogram History of edema History of renal disease History of stress test Hypertension Kidney stone Left renal stone Leg cramps Marijuana use Migraine Peptic ulcer of stomach Restless legs Smoker Syncope Wears dentures Wears glasses Home Medications acidophilus 100 million cell-pectin, citrus 10 mg capsule 1 cap PO DAILY 09/22/21 [History Last Taken Unknown] albuterol sulfate 90 mcg/actuation aerosol inhaler (Ventolin HFA) 2 puff inhalation Q6H PRN Shortness Of Breath 09/22/21 [History Last Taken Unknown] aripiprazole 5 mg tablet (Abilify) 10 mg PO QHS 09/22/21 [History Last Taken Unknown] d-mannose 500 mg capsule 1,000 mg PO DAILY 09/22/21 [History Last Taken Unknown] diphenhydramine HCl 50 mg capsule 50 mg PO Q6H PRN Allergic Symptoms 09/22/21 [History Last Taken Unknown] dupilumab 300 mg/2 mL subcutaneous syringe (Gracen[place]) 300 mg subcut .[id number] 09/22/21 [History Last Taken Unknown] erenumab-aooe 70 mg/mL subcutaneous auto-injector (Aimovig Autoinjector) 70 mg subcut QMONTH migrains 09/22/21 [History Last Taken Unknown] escitalopram oxalate 20 mg tablet (Lexapro) 20 mg PO DAILY 09/22/21 [History Last Taken Unknown] fluticasone propionate 50 mcg/actuation nasal spray,suspension 1 spray intranasal DAILY ALLERGIES 09/22/21 [History Last Taken Unknown] mirtazapine 15 mg tablet (Remeron) 15 mg PO QHS 09/22/21 [History Last Taken Unknown] omeprazole 40 mg capsule,delayed release 40 mg PO DAILY 09/22/21 [History Last Taken Unknown] tizanidine 4 mg capsule 4 mg PO Q8H PRN Back Pain 09/22/21 [History Last Taken Unknown] propranolol 10 mg tablet 10 mg PO DAILY BP 12/26/21 [History Last Taken Unknown] ondansetron 4 mg disintegrating tablet 4 mg PO Q6H PRN nausea and vomiting #10 tabs 10/04/22 [Rx Last Taken Unknown] Allergy/AdvReac Type Severity Reaction Status Date / Time amitriptyline Allergy MUSCLE Verified 10/04/22 19:04 SPASMS Bleach (Sodium Hypochlorite) Allergy Hives Verified 10/04/22 19:04 codeine Allergy Hives Verified 10/04/22 19:04 ketorolac [From Toradol] Allergy Itching Verified 10/04/22 19:04 nitrofurantoin Allergy Anaphylaxis Verified 10/04/22 19:04 [From Macrodantin] doxycycline AdvReac Vomiting Verified 10/04/22 19:04 Family History Mother Hypertension Migraine Grandmother CVA (cerebral vascular accident) Grandfather Diabetes Father Myocardial infarction no significant family history Surgical History History of cystoscopy History of hysterectomy Hx of cholecystectomy S/P laparoscopic surgery no surgical history Social History household members: significant other Smoking Status: Current every day smoker tobacco type: e-cigarettes alcohol intake: current details: occasionally substance use type: does not use caffeine: Yes what type of physical activity do you participate in: walking frequency: 1-2 times per week seatbelt use: always do you feel safe at home: Yes additional social history: Single ROS ROS ED ROS Narrative Abdominal pain with nausea, vomiting, diarrhea and fever. Review of Systems ROS Unobtainable: Denies due to encephalopathy Constitutional Constitutional ED: Reports fever(s); Denies chills, subjective or sweats ENT ENT ED: Denies ear pain Cardiovascular Cardiovascular: Denies chest pain Respiratory/Chest Respiratory/Chest: Denies cough or dyspnea Gastrointestinal Gastrointestinal: Reports abdominal pain, diarrhea, nausea and vomiting; Denies constipation or melena Genitourinary Genitourinary ED: Denies dysuria or hematuria Musculoskeletal Musculoskeletal: Denies arthralgias Integumentary Denies abscess or Abrasions Neurologic Neurologic: Denies headache(s) Psychiatric Psychiatric: Denies anxiety Endocrine Endocrinology: Denies polydipsia Hematologic/Lymphatic Hematologic/Lymphatic: Denies easy bleeding Allergic/Immunologic Allergic/Immunologic ED: Denies mouth swelling or tongue swelling EXAM Physical Exam Narrative Exam Narrative: 30-year female no acute distress. Vital signs stable afebrile. She does not look septic or toxic. Clinically does not look dehydrated. No distress. H EENT exam unremarkable. Moist mucous membranes. Neck nontender. Lungs clear to auscultation bilaterally. Heart regular rhythm no murmur. Rate about 90. Abdomen soft nondistended normal bowel sounds no peritoneal signs. Mild right upper quadrant and epigastric tenderness. No rebound guarding or rigidity. No distention or obstruction. Soft with positive bowel sounds. Moving all 4 extremities. Back nontender. Neurologic exam normal. Benign exam. Const Vital Signs: 10/04/22 19:03 10/04/22 21:02 Temperature 97.8 F Temperature Source Temporal Pulse Rate 87 92 Respiratory Rate 16 18 Blood Pressure 146/107 H Blood Pressure Mean 120 Pulse Ox 97 97 Oxygen Delivery Method Room Air Room Air Positive well nourished, well developed and obese; Negative for cachectic, contractures or unkempt General Appearance ED: well developed and NAD; Negative for unkempt, cachectic, contractures or pallor Nutritional Appearance: obese; Negative for cachectic HEENT Reports moist mucous membranes; Denies dry mucous membranes normocephalic and atraumatic; Negative for trauma or tenderness Mouth ED: No dry mucous membranes Mouth: No dry mucous membranes Eyes PERRL and EOMs intact bilaterally General Eye ED: Negative for pale conjunctiva or scleral icterus Neck no lymphadenopathy, supple and no JVD General: Negative for tenderness Carotids: Negative for other Lymph Lymphatic: Negative for other Resp normal respiratory effort and clear to auscultation bilaterally Effort and Inspection: Negative for respiratory distress Auscultation: Negative for rales, rhonchi or wheezes Cardio regular rhythm, S1 normal heart sound, S2 normal heart sound and no murmurs GI non-distended and no masses; Negative for non-tender Inspection: Negative for abdominal distention Auscultation: normoactive bowel sounds Palpation: soft; Negative for tender, guarding or rigid Back/Spine no CVA tenderness General Back: Negative for CVA tenderness Cervical Spine: Negative for cervical spine tenderness Thoracic Spine / Upper Back: Negative for thoracic spinal tenderness Lumbar Spine / Lower Back: Negative for lumbar spinal tenderness Coccyx: Negative for other Extremity full ROM General Extremety ED: Negative for edema or tenderness General Extremity: Negative for edema Neuro CN's II-XII intact bilaterally, moves all extremities and no sensory deficits noted Sensorium / Orientation: alert, oriented to person, oriented to place and oriented to time; Negative for orientation impaired, confused, lethargic or stuporous Motor Exam: strength 5/5 throughout Psych mental status grossly normal and thought process normal Appearance: Negative for unkempt Mood & Affect: Negative for depressed, anxious or tearful Skin no wounds General Skin Exam: Negative for jaundice or pallor Lesions: no lesions Rashes: no rashes Trauma: Negative for abrasion Nails: Negative for discolored MDM MDM MDM Narrative Medical decision making narrative: 32-year-old female with abdominal pain with nausea vomiting diarrhea and fever. Clinically I think this is viral gastroenteritis. Screening labs will be obtained. She will be treated with IV fluids IV Zofran she wanted something for pain. Initially preferred to give her Toradol when offered she told me she had a Toradol allergy. She was given 1 dose of fentanyl. Repeat exam patient is doing well at 9:50 PM. Abdomen is benign. She requested another dose of pain medication prior to discharge. Franky prescription for Zofran written for pharmacy in [place]. Clinically I discussed with her and her I thought this was a viral gastroenteritis and she can follow-up as an outpatient. Fluids and rest Zofran as needed. Lab Data Attestation: I reviewed the patient's lab results. Lab results narrative: CBC normal white count of 6.3. H&H 12.9 and 39. Platelets 218. Electrolytes unremarkable gap of 7 normal BUN 9 creatinine 0.8. Liver enzymes unremarkable. Lipase normal at 76. Glucose 106. Labs: Laboratory Results - last 24 hr 10/04/22 10/04/22 19:20 19:20 WBC 6.3 RBC 4.42 Hgb 12.9 Hct 39.9 MCV 90.3 MCH 29.2 MCHC 32.3 RDW Std Deviation 42.9 RDW Coeff of Romario 13.0 Plt Count 218 MPV 12.3 H Immature Gran % (Auto) 0.200 Neut % (Auto) 65.5 Lymph % (Auto) 29.3 [place] % (Auto) 4.6 Eos % (Auto) 0.2 Baso % (Auto) 0.2 Absolute Neuts (auto) 4.1 Absolute Lymphs (auto) 1.84 Nucleated RBC % 0 Sodium 143 Potassium 3.6 Chloride 110 H Carbon Dioxide 26.0 Anion Gap 7 BUN 9 Creatinine 0.85 Estim Creat Clear Calc 82.05 Est GFR (MDRD) Af Amer 99 Est GFR (MDRD) Non-Af 82 BUN/Creatinine Ratio 10.5 Glucose 106 Calcium 9.7 Total Bilirubin 0.60 AST 21 ALT 26 Alkaline Phosphatase 121 H Total Protein 8.2 Albumin 4.5 Globulin 3.7 Albumin/Globulin Ratio 1.2 Lipase 76 Discharge Plan Triage Chief Complaint: Nausea/Vomiting Other Complaint: Abd Pain ED Provider: Satya Page Dx/Rx/DC Orders Clinical Impression: Viral gastroenteritis, Abdominal pain, History of endometriosis Instructions: Viral Gastroenteritis Prescriptions: New ondansetron 4 mg tablet,disintegrating 4 mg PO Q6H PRN (Reason: nausea and vomiting) Qty: 10 0RF No Action propranolol 10 mg tablet 10 mg PO DAILY diphenhydramine HCl 50 mg Capsule 50 mg PO Q6H PRN (Reason: Allergic Symptoms) omeprazole 40 mg Capsule,Delayed Release(Dr/Ec) 40 mg PO DAILY mirtazapine [Remeron] 15 mg Tablet 15 mg PO QHS albuterol sulfate [Ventolin HFA] 90 mcg/actuation Hfa Aerosol Inhaler 2 puff INHALATION Q6H PRN (Reason: Shortness Of Breath) fluticasone propionate 50 mcg/actuation [place],Suspension 1 spray INTRANASAL DAILY escitalopram oxalate [Lexapro] 20 mg Tablet 20 mg PO DAILY aripiprazole [Abilify] 5 mg Tablet 10 mg PO QHS tizanidine 4 mg Capsule 4 mg PO Q8H PRN (Reason: Back Pain) acidophilus-pectin, citrus 100 million cell-10 mg Capsule 1 cap PO DAILY Dupixent Syringe 300 mg/2 mL Syringe 300 mg SUBCUT .[id number] Rx Instructions: EVERY 2 WEEKS Aimovig Autoinjector 70 mg/mL Auto-Injector 70 mg SUBCUT QMONTH d-mannose 500 mg Capsule 1,000 mg PO DAILY Primary Care Provider: Elizabeth Spear NP Referrals: Elizabeth Spear NP, DIRECTOR OF MAINTENANCE-C [Primary Care Provider] - 3-5 Days if not improving Activity Restrictions/Additional Instructions: Plenty of fluids and rest. Slowly increase your diet as tolerated. Zofran as needed for nausea. Tylenol Motrin for pain. Disposition Disposition: Home, Self Care
[2022-10-04] MEDS: 0.9% Normal Saline 1,000 ML 1000 ML IV (19:39)
[2022-10-04] MEDS: Ondansetron 4 MG/2 ML Vial IV (19:39)
[2022-10-04] MEDS: fentaNYL 100 MCG/2 ML Ampul 25 MCG IV ×2 (19:39→22:09)
[2022-10-04 20:06] LABS: Absolute Lymphocyte Count 1.84 X10^3/uL (0.83-4.51); Absolute Neutrophil Count 4.1 X10^3/uL (2.0-7.7); Basophil# 0.01 X10^3/uL; Basophil% 0.2 % (0-1); Eosinophil# 0.01 X10^3/uL; Eosinophils% 0.2 % (0-5); Hematocrit 39.9 % (37-47); Hemoglobin 12.9 g/dL (12.0-15.0); Lymphocyte # 1.84 X10^3/ul (0.83-4.51); Lymphocyte % 29.3 % (19-41); Mean Corp Hgb Conc 32.3 g/dL (32-36); Mean Corpuscular Hgb 29.2 pg (27.0-32.0); Mean Corpuscular Volume 90.3 fL (81-99); Mean Platelet Vol. 12.3 fl (6.2-12.0); Monocyte# 0.29 X10^3/uL; Monocyte% 4.6 % (0-10); NRBC Flagged by Analyzer 0 % (0-5); Neutrophil # 4.11 X10^3/uL (2.7-7.7); Neutrophil % 65.5 % (47-70); Platelet Count 218 K/mm3 (150-450); RBC Distribution Width SD 42.9 fl (35.1-43.9); Red Blood Count 4.42 M/mm3 (4.2-5.4); White Blood Count 6.3 K/mm3 (4.4-11.0)
[2022-10-04 20:21] LABS: ALB/GLOB Ratio 1.2 RATIO (0.9-2.4); AST(SGOT) 21 U/L (15-37); Alanine Aminotransfer ALT/SGPT 26 U/L (13-56); Albumin, Serum 4.5 g/dL (3.2-5.0); Alkaline Phosphatase 121 U/L (45-117); Anion Gap 7 (5-15); BUN 9 mg/dL (7-18); BUN/Creat Ratio 10.5 RATIO (10-20); Calcium,Total 9.7 mg/dL (8.5-10.1); Chloride 110 mmol/L (98-107); Creatinine, Serum 0.85 mg/dL (0.55-1.02); EST Glomerular Filtration Rate 82 mL/min (>60); Est Glom Filt Rate - Afr Amer 99 mL/min (>60); Estimated Creatinine Clearance 82.05 ml/min; Globulin 3.7 g/dL (2.2-4.2); Glucose 106 mg/dL (74-106); Lipase 76 U/L (73-393); Potassium 3.6 mmol/L (3.5-5.1); Protein, Total 8.2 g/dL (6.4-8.2); Sodium Level 143 mmol/L (136-145)
[2022-10-04 21:02] VITALS: PULSE 92; RESP 18; O2SAT 97
== END 2022-10-04 22:11 | disposition home or self-care (01) ==
PROVIDERS: Emergency Provider Emergency Medicine; PCP Nurse Practitioner Primary Care; Visit Provider Emergency Medicine
DX: A08.4 Viral intestinal infection, unspecified (principal); I10 Essential (primary) hypertension; K76.0 Fatty (change of) liver, not elsewhere classified; F17.290 Nicotine dependence, other tobacco product, uncomplicated; E66.9 Obesity, unspecified; K21.9 Gastro-esophageal reflux disease without esophagitis; F41.9 Anxiety disorder, unspecified; F32.A Depression, unspecified; Z79.899 Other long term (current) drug therapy
CPT/HCPCS: 80053; 83690; 85025; 96361; 96374; 96375; 96376; 99283; J7030; A4216; J2405

== ENCOUNTER 2022-10-30 17:42 | Emergency (ER) | payer MEDICAID, SELFPAY ==
[2022-10-30 17:43] VITALS: BP 140/101; PULSE 75; RESP 16; TEMP 36.5; O2SAT 100; BMI 33.0
--- NOTE | 2022-10-30 18:00 | CT_ITS ---
EXAM: CT ABDOMEN AND PELVIS WITHOUT INTRAVENOUS CONTRAST CLINICAL INDICATION: Kidney Stone -- Right flank pain, status post hysterectomy TECHNIQUE: Helically acquired images were obtained of the abdomen and pelvis without intravenous contrast. This CT exam was performed using one or more of the following dose reduction techniques: automated exposure control, adjustment of the mA and/or kV according to patient size, and/or use of iterative reconstruction technique. This report was created using [employer] report generation technology. COMPARISON: 07/06/2022 FINDINGS: LOWER THORAX: Unremarkable. Lung bases are clear. No cardiomegaly. No significant pericardial effusion. ABDOMEN: LIVER: Unremarkable. Homogeneous. GALLBLADDER AND BILE DUCTS: Unremarkable. No calcified gallstones. No gallbladder distention or wall edema. No intra- or extrahepatic biliary ductal dilation. PANCREAS: Unremarkable. No focal cystic mass. SPLEEN: Unremarkable. Normal size without focal cystic or solid mass. ADRENALS: Unremarkable. No nodules. KIDNEYS AND URETERS: Unremarkable. Normal renal size and position. No hydronephrosis. STOMACH AND BOWEL: Unremarkable. No stomach or bowel distention. No focal inflammatory change. PELVIS: APPENDIX: No evidence of acute appendicitis. BLADDER: Unremarkable. REPRODUCTIVE: Unremarkable as visualized. No mass. ABDOMEN and PELVIS: INTRAPERITONEAL SPACE: Unremarkable. No ascites or other fluid collection. No free air. BONES/JOINTS: Unremarkable. No suspicious lytic or blastic abnormality. SOFT TISSUES: Unremarkable. No discrete abdominal or pelvic wall hernia. VASCULATURE: Unremarkable. Abdominal aorta is non-dilated. LYMPH NODES: Unremarkable. No enlarged lymph nodes. CT/Abdomen/Pelvis without Cont IMPRESSION: Negative CT of the abdomen and pelvis without intravenous contrast. Electronically Signed: Alex Polk MD at 18:44 EST ,
--- NOTE | 2022-10-30 18:03 | EDS_ITS ---
HPI History of Present Illness Chief Complaint: Flank Pain Detail of Chief Complaint: Right flank pain Informant: patient Onset/Context/Timing Onset: Days Context: Sudden Onset Timing: Continuous and Waxes and wanes Quality: Pain Location: Right flank Current Severity: Moderate Maximum Severity: Severe Worsened by: Nothing Relieved by: Nothing Associated Symptoms Associated Symptoms: Urgency Narrative Narrative: Patient is a 32-year-old female with history of renal ureterolithiasis requiring 3 prior lithotripsies who presents with acute right flank pain that is waxing waning nature. Nothing makes it better or worse. She denies fever, chills night sweats. She does complain of urgency. She denies dysuria or hematuria. She denies vaginal bleeding or discharge. There is no history of trauma. She denies cardiorespiratory symptoms. Prior similar symptoms: Yes Recent Illness/Hospitalization: No PFSH PFS Medical History Alcohol use Anxiety Back pain Bilateral renal stones Bipolar disorder Cardiology follow-up encounter Chronic interstitial cystitis Conversion disorder Depression Easy bruising Endometriosis Environmental and seasonal allergies Fatty liver Fibromyalgia Gastric reflux High cholesterol History of cervical cancer History of echocardiogram History of edema History of renal disease History of stress test Hypertension Kidney stone Left renal stone Leg cramps Marijuana use Migraine Peptic ulcer of stomach Restless legs Smoker Syncope Wears dentures Wears glasses Home Medications acidophilus 100 million cell-pectin, citrus 10 mg capsule 1 cap PO DAILY 09/22/21 [History Last Taken Unknown] albuterol sulfate 90 mcg/actuation aerosol inhaler (Ventolin HFA) 2 puff inhalation Q6H PRN Shortness Of Breath 09/22/21 [History Last Taken Unknown] aripiprazole 5 mg tablet (Abilify) 10 mg PO QHS 09/22/21 [History Last Taken Unknown] d-mannose 500 mg capsule 1,000 mg PO DAILY 09/22/21 [History Last Taken Unknown] diphenhydramine HCl 50 mg capsule 50 mg PO Q6H PRN Allergic Symptoms 09/22/21 [History Last Taken Unknown] dupilumab 300 mg/2 mL subcutaneous syringe (Dupixent) 300 mg subcut .[id number] 09/22/21 [History Last Taken Unknown] erenumab-aooe 70 mg/mL subcutaneous auto-injector (Aimovig Autoinjector) 70 mg subcut QMONTH migrains 09/22/21 [History Last Taken Unknown] escitalopram oxalate 20 mg tablet (Lexapro) 20 mg PO DAILY 09/22/21 [History Last Taken Unknown] fluticasone propionate 50 mcg/actuation nasal spray,suspension 1 spray intranasal DAILY ALLERGIES 09/22/21 [History Last Taken Unknown] mirtazapine 15 mg tablet (Remeron) 15 mg PO QHS 09/22/21 [History Last Taken Unknown] omeprazole 40 mg capsule,delayed release 40 mg PO DAILY 09/22/21 [History Last Taken Unknown] tizanidine 4 mg capsule 4 mg PO Q8H PRN Back Pain 09/22/21 [History Last Taken Unknown] propranolol 10 mg tablet 10 mg PO DAILY BP 12/26/21 [History Last Taken Unknown] ondansetron 4 mg disintegrating tablet 4 mg PO Q6H PRN nausea and vomiting #10 tabs 10/04/22 [Rx Last Taken Unknown] Allergy/AdvReac Type Severity Reaction Status Date / Time amitriptyline Allergy MUSCLE Verified 10/04/22 19:04 SPASMS Bleach (Sodium Hypochlorite) Allergy Hives Verified 10/04/22 19:04 codeine Allergy Hives Verified 10/04/22 19:04 ketorolac [From Toradol] Allergy Itching Verified 10/04/22 19:04 nitrofurantoin Allergy Anaphylaxis Verified 10/04/22 19:04 [From Macrodantin] doxycycline AdvReac Vomiting Verified 10/04/22 19:04 Family History Mother Hypertension Migraine Grandmother CVA (cerebral vascular accident) Grandfather Diabetes Father Myocardial infarction Surgical History History of cystoscopy History of hysterectomy Hx of cholecystectomy S/P laparoscopic surgery Social History household members: significant other Smoking Status: Current every day smoker tobacco type: e-cigarettes alcohol intake: current details: occasionally substance use type: does not use caffeine: Yes what type of physical activity do you participate in: walking frequency: 1-2 times per week seatbelt use: always do you feel safe at home: Yes additional social history: Single ROS ROS ED Constitutional Constitutional ED: Reports chills; Denies fever(s), subjective, sweats or weight loss Eyes Eyes: Denies blurry vision, change in vision or diplopia ENT ENT ED: Denies ear pain, rhinorrhea or sore throat Cardiovascular Cardiovascular: Denies chest pain, palpitations or racing heartbeat Respiratory/Chest Respiratory/Chest: Denies cough, dyspnea or dyspnea on exertion Gastrointestinal Gastrointestinal: Reports abdominal pain and nausea; Denies constipation, diarrh ea, melena or vomiting Genitourinary Genitourinary ED: Reports other Details: Urgency ; Denies dysuria, hematuria or urinary frequency Musculoskeletal Musculoskeletal: Reports other Details: Right flank pain ; Denies arthralgias, back pain, myalgias or neck pain Integumentary Denies Abrasions Neurologic Neurologic: Denies headache(s), paresthesias or weakness Hematologic/Lymphatic Hematologic/Lymphatic: Reports easy bruising; Denies easy bleeding EXAM Physical Exam Const Vital Signs: 10/30/22 17:43 Temperature 97.7 F L Temperature Source Temporal Pulse Rate 75 Respiratory Rate 16 Blood Pressure 140/101 H Blood Pressure Mean 114 Pulse Ox 100 Oxygen Delivery Method Room Air Positive well nourished, well developed and obese Constitutional Narrative: Patient appears uncomfortable. General Appearance ED: well developed; Negative for cyanotic, diaphoretic or NAD Nutritional Appearance: obese HEENT Reports moist mucous membranes HEENT Narrative: Head is atraumatic normocephalic. Ears normal. Nares patent. She does have piercing of her nose. Mucosas moist. Negative for trauma or tenderness Eyes PERRL and EOMs intact bilaterally General Eye ED: Negative for pale conjunctiva or scleral icterus Neck no lymphadenopathy, supple and no JVD Chest Wall inspection of chest normal and palpation of chest normal Resp normal respiratory effort and clear to auscultation bilaterally Cardio regular rate, regular rhythm, S1 normal heart sound, S2 normal heart sound and no murmurs GI non-distended; Negative for normal to inspection, nondistended, normoactive bowel sounds, non-tender or hepatosplenomegaly Inspection: Negative for abdominal distention Auscultation: hypoactive bowel sounds Palpation: soft and tender RUQ Back/Spine no CVA tenderness Cervical Spine: Negative for cervical spine tenderness Thoracic Spine / Upper Back: Negative for thoracic spinal tenderness Extremity normal to inspection General Extremety ED: Negative for edema or tenderness General Extremity: Negative for edema Neuro No oriented x3, No CN's II-XII intact bilaterally and No no sensory deficits noted Sensorium / Orientation: alert Psych Psych Narrative: Flat affect Skin no rashes or lesions noted, no wounds and skin turgor normal MDM MDM MDM Narrative Medical decision making narrative: IV was established. Patient was medicated with Zofran for nausea and morphine for her pain. She lists ketorolac as allergy. In light of patient's past history CT was obtained to determine size and location of stone. UA was obtained to assess for evidence of infection. CBC to assess white count and differential. BMP to assess renal function and determine if antibiotics need to be adjusted for renal function. With a normal CAT scan and normal urinalysis the cause of her pain is unknown. She was discharged home with appropriate home-going instructions for pain of unknown etiology Lab Data Attestation: I reviewed the patient's lab results. Lab results narrative: UA is unremarkable. Labs: Laboratory Results - last 24 hr 10/30/22 18:07 Urine Color Straw Urine Clarity Clear Urine pH 7.0 Ur Specific [place] 1.010 Urine Protein Negative Urine Glucose (UA) Normal Urine Ketones Negative Urine Occult Blood 25 H Urine Nitrite Negative Urine Bilirubin Negative Urine Urobilinogen Normal Ur Leukocyte Esterase Negative Urine RBC 0-5 SEEN Urine WBC 0 SEEN Ur Squamous Epith Cells 0-5 SEEN Urine Bacteria 0 SEEN Urine Mucus 0 SEEN Radiography Diagnostic Testing: Clinical Impression(s) from Imaging Studies Abdomen/Pelvis CT 10/30/22 18:00 IMPRESSION: Negative CT of the abdomen and pelvis without intravenous contrast. Electronically Signed: Alex Polk MD at 18:44 EST , Discharge Plan Triage Chief Complaint: Flank Pain ED Provider: Rayray Irving Dx/Rx/DC Orders Clinical Impression: Acute right flank pain, Status post hysterectomy, History of kidney stones Instructions: ED Flank Pain, Uncertain Cause Prescriptions: No Action propranolol 10 mg tablet 10 mg PO DAILY diphenhydramine HCl 50 mg Capsule 50 mg PO Q6H PRN (Reason: Allergic Symptoms) omeprazole 40 mg Capsule,Delayed Release(Dr/Ec) 40 mg PO DAILY mirtazapine [Remeron] 15 mg Tablet 15 mg PO QHS albuterol sulfate [Ventolin HFA] 90 mcg/actuation Hfa Aerosol Inhaler 2 puff INHALATION Q6H PRN (Reason: Shortness Of Breath) fluticasone propionate 50 mcg/actuation [place],Suspension 1 spray INTRANASAL DAILY escitalopram oxalate [Lexapro] 20 mg Tablet 20 mg PO DAILY aripiprazole [Abilify] 5 mg Tablet 10 mg PO QHS tizanidine 4 mg Capsule 4 mg PO Q8H PRN (Reason: Back Pain) acidophilus-pectin, citrus 100 million cell-10 mg Capsule 1 cap PO DAILY Dupixent Syringe 300 mg/2 mL Syringe 300 mg SUBCUT .[id number] Rx Instructions: EVERY 2 WEEKS Aimovig Autoinjector 70 mg/mL Auto-Injector 70 mg SUBCUT QMONTH d-mannose 500 mg Capsule 1,000 mg PO DAILY ondansetron 4 mg tablet,disintegrating 4 mg PO Q6H PRN (Reason: nausea and vomiting) Qty: 10 0RF Primary Care Provider: Elizabeth Spear NP Referrals: Elizabeth Spear NP, [employer]ING M[employer]INE ADJUSTER-[employer] [Primary Care Provider] - 3-5 Days Disposition Disposition: Home, Self Care
[2022-10-30] MEDS: Ondansetron 4 MG/2 ML Vial IV (18:10)
[2022-10-30] MEDS: Morphine 4 MG/ML Syringe IV (18:11)
[2022-10-30 18:12] LABS: Bacteria 0 SEEN /hpf (None Seen); Mucous, Urine 0 SEEN /hpf (<or=2+); White Blood Cells 0 SEEN /hpf (0-5)
[2022-10-30] MEDS: 0.9% Normal Saline 1,000 ML 250 ML IV (18:12)
[2022-10-30 18:34] LABS: Color, Urine Straw (Yellow); Glucose, Dipstick Normal (Normal); Ketone-Dipstick Negative (Negative); Leukocyte Esterase-Dipstick Negative /ul (Negative); Nitrite-Dipstick Negative (Negative); Occult Blood-Urine 25 /ul (Negative); Protein-Dipstick Negative (Negative); Urine Bilirubin Dipstick Negative (Negative); Urine Clarity Clear (Clear); Urine Urobilinogen Normal (Normal)
[2022-10-30 19:18] LABS: Red Blood Cells-Urine 0-5 SEEN /hpf (0-5); Squamous Epithelial Cells - UA 0-5 SEEN /hpf (5-10)
== END 2022-10-30 20:18 | disposition home or self-care (01) ==
PROVIDERS: Emergency Provider Emergency Medicine; PCP Nurse Practitioner Primary Care; Visit Provider Emergency Medicine
DX: R10.9 Unspecified abdominal pain (principal); F31.9 Bipolar disorder, unspecified; R11.0 Nausea; R39.15 Urgency of urination; E78.00 Pure hypercholesterolemia, unspecified; I10 Essential (primary) hypertension; E66.9 Obesity, unspecified; F17.290 Nicotine dependence, other tobacco product, uncomplicated; Z87.442 Personal history of urinary calculi; Z90.710 Acquired absence of both cervix and uterus
CPT/HCPCS: 74176; 81001; 96361; 96374; 96375; 99282; J7030; A4216; J2405

== ENCOUNTER 2023-01-30 21:26 | Emergency (ER) | payer MEDICAID, SELFPAY ==
[2023-01-30 21:27] VITALS: BP 141/101; PULSE 89; RESP 15; TEMP 36.5; O2SAT 98; BMI 35.7
--- NOTE | 2023-01-30 22:37 | EDS_ITS ---
HPI HPI - Female History of Present Illness Chief Complaint: Vag Bleeding Informant: patient Pain Pain: Positive for Pelvic Pain Onset: Days Context: Sudden Onset Timing: Continuous and Waxes and wanes Quality: Positive for Cramping Location: Suprapubic and Back Worsened by: - (Urination, standing) Relieved by: - (Nothing) Bleeding Issue: Positive for Vaginal bleeding Onset: Days Context: Sudden Onset Timing: Continuous and Waxes and wanes Current Severity: - (Somewhat event security officer than her normal menstrual periods) Associated Symptoms Associated Symptoms: Negative for Dysuria, Frequency, Urgency or Hematuria Narrative Narrative: Patient presents with vaginal bleeding that has been constant for the past couple days. Patient states that she had a hysterectomy in 2014. Patient states she has been having some pelvic cramping that radiates into her low back. Patient states this has been constant for the past couple days. Patient states it does wax and wane. Patient states her pain is worse with urination and with prolonged standing. Patient states her bleeding is somewhat event security officer than her normal menstrual periods prior to her hysterectomy. Patient admits to subjective chills and a fever of 100.1 at home. Patient admits to some nausea but denies any vomiting. [facility] Medical History Alcohol use Anxiety Back pain Bilateral renal stones Bipolar disorder Cardiology follow-up encounter Chronic interstitial cystitis Conversion disorder Depression Easy bruising Endometriosis Environmental and seasonal allergies Fatty liver Fibromyalgia Gastric reflux High cholesterol History of cervical cancer History of echocardiogram History of edema History of renal disease History of stress test Hypertension Kidney stone Left renal stone Leg cramps Marijuana use Migraine Peptic ulcer of stomach Restless legs Smoker Syncope Wears dentures Wears glasses Home Medications acidophilus 100 million cell-pectin, citrus 10 mg capsule 1 cap PO DAILY 09/22/21 [History Last Taken Unknown] albuterol sulfate 90 mcg/actuation aerosol inhaler (Ventolin HFA) 2 puff inhalation Q6H PRN Shortness Of Breath 09/22/21 [History Last Taken Unknown] diphenhydramine HCl 50 mg capsule 50 mg PO Q6H PRN Allergic Symptoms 09/22/21 [History Last Taken Unknown] dupilumab 300 mg/2 mL subcutaneous syringe ([employer]) 300 mg subcut .[id number] 09/22/21 [History Last Taken Unknown] erenumab-aooe 70 mg/mL subcutaneous auto-injector (Aimovig Autoinjector) 70 mg subcut QMONTH migrains 09/22/21 [History Last Taken Unknown] escitalopram oxalate 20 mg tablet (Lexapro) 20 mg PO DAILY 09/22/21 [History Last Taken Unknown] fluticasone propionate 50 mcg/actuation nasal spray,suspension 1 spray intranasal DAILY ALLERGIES 09/22/21 [History Last Taken Unknown] omeprazole 40 mg capsule,delayed release 40 mg PO DAILY 09/22/21 [History Last Taken Unknown] tizanidine 4 mg capsule 4 mg PO Q8H PRN Back Pain 09/22/21 [History Last Taken Unknown] propranolol 10 mg tablet 10 mg PO DAILY BP 12/26/21 [History Last Taken Unknown] pregabalin 50 mg capsule 50 mg PO QHS 01/30/23 [History Last Taken Unknown] quetiapine 50 mg tablet,extended release 24 hr 100 mg PO DAILY 01/30/23 [History Last Taken Unknown] Allergy/AdvReac Type Severity Reaction Status Date / Time amitriptyline Allergy MUSCLE Verified 01/30/23 21:32 SPASMS Bleach (Sodium Hypochlorite) Allergy Hives Verified 01/30/23 21:32 codeine Allergy Hives Verified 01/30/23 21:32 ketorolac [From Toradol] Allergy Itching Verified 01/30/23 21:32 nitrofurantoin Allergy Anaphylaxis Verified 01/30/23 21:32 [From Macrodantin] doxycycline AdvReac Vomiting Verified 01/30/23 21:32 Family History Mother Hypertension Migraine Grandmother CVA (cerebral vascular accident) Grandfather Diabetes Father Myocardial infarction Surgical History History of cystoscopy History of hysterectomy Hx of cholecystectomy S/P laparoscopic surgery Social History household members: significant other Smoking Status: Current every day smoker tobacco type: e-cigarettes alcohol intake: current details: occasionally substance use type: does not use caffeine: Yes what type of physical activity do you participate in: walking frequency: 1-2 times per week seatbelt use: always do you feel safe at home: Yes additional social history: Single ROS ROS ED Constitutional Constitutional ED: Reports chills, fever(s) and subjective Eyes Eyes: Denies blurry vision or change in vision ENT ENT ED: Denies rhinorrhea or sore throat Cardiovascular Cardiovascular: Denies chest pain or palpitations Respiratory/Chest Respiratory/Chest: Denies cough or dyspnea Gastrointestinal Gastrointestinal: Reports nausea; Denies vomiting Genitourinary Genitourinary ED: Denies dysuria or hematuria Musculoskeletal Musculoskeletal: Reports back pain and neck pain Integumentary Denies abscess or rash Neurologic Neurologic: Reports headache(s); Denies weakness Allergic/Immunologic Allergic/Immunologic ED: Denies mouth swelling or urticaria EXAM Physical Exam Const Vital Signs: 01/30/23 21:27 01/30/23 23:13 01/31/23 01:00 Temperature 97.7 F L Temperature Source Temporal Pulse Rate 89 84 Pulse Rate [Lying] 78 Pulse Rate [Sitting (for 1 minute prior to obtaining)] 75 Pulse Rate [Standing (for 1 minute prior to obtaining)] 80 Respiratory Rate 15 16 Blood Pressure 141/101 H 140/81 H Blood Pressure [Lying] 137/79 H Blood Pressure [Sitting (for 1 minute prior to obtaining)] 135/91 H Blood Pressure [Standing (for 1 minute prior to obtaining)] 139/91 H Blood Pressure Mean 114 100 Blood Pressure Mean [Lying] 98 Blood Pressure Mean [Sitting (for 1 minute prior to obtaining)] 105 Blood Pressure Mean [Standing (for 1 minute prior to obtaining)] 107 Pulse Ox 98 98 Oxygen Delivery Method Room Air Room Air Positive well nourished, well developed and obese General Appearance ED: well developed and NAD Nutritional Appearance: obese HEENT Reports moist mucous membranes Neck supple and no JVD Resp normal respiratory effort and clear to auscultation bilaterally Cardio regular rate, regular rhythm and no murmurs GI normal to inspection, nondistended, normoactive bowel sounds and soft to palpation Palpation: soft and tender suprapubic; Negative for guarding Extremity normal to inspection General Extremety ED: Negative for edema or tenderness General Extremity: Negative for edema Neuro oriented x3, CN's II-XII intact bilaterally and no sensory deficits noted Sensorium / Orientation: alert Motor Exam: strength 5/5 throughout Psych mental status grossly normal Skin no rashes or lesions noted MDM MDM MDM Narrative Medical decision making narrative: Differential diagnosis includes postmenopausal bleeding, cancer, hematuria, and urinary tract infection. CBC will be obtained to assess for leukocytosis and anemia. Basic metabolic profile will be obtained to assess for electrolyte abnormality and renal function. Urinalysis will be obtained to assess for urinary tract infection and hematuria. CT scan of the abdomen pelvis will be obtained to assess for pelvic mass and bowel obstruction. Lab Data Attestation: I reviewed the patient's lab results. Lab results narrative: CBC was reviewed and was within normal limits. Basic metabolic profile was reviewed and was within normal limits. Serum hCG was reviewed and was negative. Urinalysis was reviewed. There is no evidence of urinary tract infection or hematuria. Labs: Laboratory Results - last 24 hr 01/30/23 01/30/23 01/30/23 22:50 22:50 22:50 WBC 6.4 RBC 4.51 Hgb 13.7 Hct 40.3 MCV 89.4 MCH 30.4 MCHC 34.0 RDW Std Deviation 42.7 RDW Coeff of Romario 13.1 Plt Count 212 MPV 11.9 Immature Gran % (Auto) 0.300 Neut % (Auto) 52.5 Lymph % (Auto) 40.2 [place] % (Auto) 5.2 Eos % (Auto) 1.6 Baso % (Auto) 0.2 Absolute Neuts (auto) 3.4 Absolute Lymphs (auto) 2.57 Nucleated RBC % 0 Sodium 138 Potassium 3.8 Chloride 104 Carbon Dioxide 28.0 Anion Gap 6 BUN 14 Creatinine 0.90 Estim Creat Clear Calc 74.23 Est GFR (MDRD) Af Amer 93 Est GFR (MDRD) Non-Af 77 BUN/Creatinine Ratio 15.6 Glucose 92 Calcium 9.7 Serum , Qual NEGATIVE Urine Color Urine Clarity Urine pH Ur Specific [place] Urine Protein Urine Glucose (UA) Urine Ketones Urine Occult Blood Urine Nitrite Urine Bilirubin Urine Urobilinogen Ur Leukocyte Esterase Urine RBC Urine WBC Ur Squamous Epith Cells Urine Bacteria Urine Mucus 01/30/23 22:50 WBC RBC Hgb Hct MCV MCH MCHC RDW Std Deviation RDW Coeff of Romario Plt Count MPV Immature Gran % (Auto) Neut % (Auto) Lymph % (Auto) [place] % (Auto) Eos % (Auto) Baso % (Auto) Absolute Neuts (auto) Absolute Lymphs (auto) Nucleated RBC % Sodium Potassium Chloride Carbon Dioxide Anion Gap BUN Creatinine Estim Creat Clear Calc Est GFR (MDRD) Af Amer Est GFR (MDRD) Non-Af BUN/Creatinine Ratio Glucose Calcium Serum , Qual Urine Color Yellow Urine Clarity Clear Urine pH 6.0 Ur Specific [place] 1.020 Urine Protein Negative Urine Glucose (UA) Normal Urine Ketones Negative Urine Occult Blood 25 H Urine Nitrite Negative Urine Bilirubin Negative Urine Urobilinogen Normal Ur Leukocyte Esterase Negative Urine RBC 0 SEEN Urine WBC 0-5 SEEN Ur Squamous Epith Cells 0-5 SEEN Urine Bacteria 0 SEEN Urine Mucus 0 SEEN Radiography Diagnostic Testing: Clinical Impression(s) from Imaging Studies Abdomen/Pelvis CT 01/31/23 00:26 IMPRESSION: 1. No acute abnormality. 2. Decreased attenuation of the liver which may represent fatty infiltration. Electronically Signed: Beltran Gomez DO at 1:04 EDT , CT scan of the abdomen pelvis was obtained. There is no acute abnormality noted. There is no free air or free fluid. This was interpreted by the radiologist and was also independently reviewed by myself. Treatment and Re-Evaluation Narrative: Patient was advised of her findings. Patient was instructed to take Tylenol or ibuprofen as needed for pain. I do not feel the patient requires prescription analgesics at this time. Patient was instructed to follow-up with her primary care physician and SETTER OFF in 3 to 5 days. Patient was instructed to return if worse in any way. Patient understood and was agreeable with the plan. All questions were answered. Discharge Plan Triage Chief Complaint: Vag Bleeding ED Provider: Gage Joya Dx/Rx/DC Orders Clinical Impression: Vaginal bleeding, Status post hysterectomy Instructions: ED Dysfunctional Uterine Bleeding Prescriptions: No Action propranolol 10 mg tablet 10 mg PO DAILY diphenhydramine HCl 50 mg Capsule 50 mg PO Q6H PRN (Reason: Allergic Symptoms) omeprazole 40 mg Capsule,Delayed Release(Dr/Ec) 40 mg PO DAILY albuterol sulfate [Ventolin HFA] 90 mcg/actuation Hfa Aerosol Inhaler 2 puff INHALATION Q6H PRN (Reason: Shortness Of Breath) fluticasone propionate 50 mcg/actuation [place],Suspension 1 spray INTRANASAL DAILY escitalopram oxalate [Lexapro] 20 mg Tablet 20 mg PO DAILY tizanidine 4 mg Capsule 4 mg PO Q8H PRN (Reason: Back Pain) acidophilus-pectin, citrus 100 million cell-10 mg Capsule 1 cap PO DAILY Dupixent Syringe 300 mg/2 mL Syringe 300 mg SUBCUT .[id number] Rx Instructions: EVERY 2 WEEKS Aimovig Autoinjector 70 mg/mL Auto-Injector 70 mg SUBCUT QMONTH quetiapine 50 mg tablet extended release 24 hr 100 mg PO DAILY pregabalin 50 mg capsule 50 mg PO QHS Primary Care Provider: Elizabeth Spear NP Referrals: Elizabeth Spear NP, TECHNICAL SALES ENGINEER-[employer] [Primary Care Provider] - 3-5 Days Disposition Disposition: Home, Self Care
[2023-01-30] MEDS: Morphine 4 MG/ML Syringe IV (23:04)
[2023-01-30] MEDS: Ondansetron 4 MG/2 ML Vial IV (23:04)
[2023-01-30 23:05] LABS: Bacteria 0 SEEN /hpf (None Seen); Mucous, Urine 0 SEEN /hpf (<or=2+); Red Blood Cells-Urine 0 SEEN /hpf (0-5)
[2023-01-30] MEDS: 0.9% Normal Saline 1,000 ML 1000 ML IV (23:05)
[2023-01-30 23:06] LABS: Absolute Lymphocyte Count 2.57 X10^3/uL (0.83-4.51); Absolute Neutrophil Count 3.4 X10^3/uL (2.0-7.7); Basophil# 0.01 X10^3/uL; Basophil% 0.2 % (0-1); Eosinophils% 1.6 % (0-5); Hematocrit 40.3 % (37-47); Hemoglobin 13.7 g/dL (12.0-15.0); Lymphocyte # 2.57 X10^3/ul (0.83-4.51); Lymphocyte % 40.2 % (19-41); Mean Corpuscular Hgb 30.4 pg (27.0-32.0); Mean Corpuscular Volume 89.4 fL (81-99); Mean Platelet Vol. 11.9 fl (6.2-12.0); Monocyte# 0.33 X10^3/uL; Monocyte% 5.2 % (0-10); NRBC Flagged by Analyzer 0 % (0-5); Neutrophil # 3.36 X10^3/uL (2.7-7.7); Neutrophil % 52.5 % (47-70); Platelet Count 212 K/mm3 (150-450); RBC Distribution Width CV 13.1 % (11.6-14.6); RBC Distribution Width SD 42.7 fl (35.1-43.9); Red Blood Count 4.51 M/mm3 (4.2-5.4); White Blood Count 6.4 K/mm3 (4.4-11.0)
[2023-01-30 23:13] VITALS: BP 135/91; BP 137/79; BP 139/91; PULSE 75; PULSE 78; PULSE 80
[2023-01-30 23:18] LABS: Internal QC Validated? YES +Cl - CLEAR BKGD; Pregnancy, Serum, hCG Quali. NEGATIVE Negative
[2023-01-30 23:23] LABS: Anion Gap 6 (5-15); BUN 14 mg/dL (7-18); BUN/Creat Ratio 15.6 RATIO (10-20); Calcium,Total 9.7 mg/dL (8.5-10.1); Chloride 104 mmol/L (98-107); EST Glomerular Filtration Rate 77 mL/min (>60); Est Glom Filt Rate - Afr Amer 93 mL/min (>60); Estimated Creatinine Clearance 74.23 ml/min; Glucose 92 mg/dL (74-106); Potassium 3.8 mmol/L (3.5-5.1); Sodium Level 138 mmol/L (136-145)
[2023-01-30 23:30] LABS: Color, Urine Yellow (Yellow); Glucose, Dipstick Normal (Normal); Ketone-Dipstick Negative (Negative); Leukocyte Esterase-Dipstick Negative /ul (Negative); Nitrite-Dipstick Negative (Negative); Occult Blood-Urine 25 /ul (Negative); Protein-Dipstick Negative (Negative); Urine Bilirubin Dipstick Negative (Negative); Urine Clarity Clear (Clear); Urine Urobilinogen Normal (Normal)
[2023-01-31 00:09] LABS: Squamous Epithelial Cells - UA 0-5 SEEN /hpf (5-10); White Blood Cells 0-5 SEEN /hpf (0-5)
--- NOTE | 2023-01-31 00:26 | CT_ITS ---
INDICATION: Pelvic pain EXAMINATION: CT ABDOMEN AND PELVIS WITH CONTRAST - CT Abdomen And Pelvis W/ Contrast Injection TECHNIQUE: Helically acquired images were obtained of the abdomen and pelvis with sagittal and coronal reconstructed images. Individualized dose optimization techniques were used for this CT. IV contrast dosage and agent: 100 mL of Isovue 370. Oral contrast: None. COMPARISON: 10/30/2022 CT. FINDINGS: VESSELS: No abdominal aortic aneurysm or dissection. Circumaortic left renal vein. LIVER: No evidence of a mass. No intrahepatic or extrahepatic biliary duct dilation. Diffuse decreased attenuation. GALLBLADDER: Status post cholecystectomy. PANCREAS: No focal solid or cystic mass. No evidence of pancreatitis. SPLEEN: Normal. ADRENAL GLANDS: Normal. KIDNEYS AND URETERS: No urinary tract stone. No hydronephrosis or hydroureter. No perinephric stranding. URINARY BLADDER: Unremarkable. BOWEL: No evidence of diverticulosis or diverticulitis. Appendix appears normal. No evidence of bowel obstruction. REPRODUCTIVE ORGANS: No evidence of a pelvic mass. PERITONEUM: No intraabdominal free fluid or free air. LYMPH NODES: No pathologically enlarged mesenteric or retroperitoneal lymph nodes. ABDOMINAL WALL: No abdominal or pelvic wall hernia. BONES: No acute abnormality. LOWER CHEST: Visualized lung bases are clear. CT/Abdomen/Pelvis W IV Cont ONLY IMPRESSION: 1. No acute abnormality. 2. Decreased attenuation of the liver which may represent fatty infiltration. Electronically Signed: Beltran Gomez DO at 1:04 EDT ,
[2023-01-31] MEDS: Morphine 4 MG/ML Syringe IV (00:46)
[2023-01-31 01:00] VITALS: BP 140/81; PULSE 84; RESP 16; O2SAT 98
== END 2023-01-31 01:56 | disposition home or self-care (01) ==
PROVIDERS: Emergency Provider Emergency Medicine; PCP Nurse Practitioner Primary Care; Visit Provider Emergency Medicine
DX: N93.9 Abnormal uterine and vaginal bleeding, unspecified (principal); Z90.710 Acquired absence of both cervix and uterus; E78.00 Pure hypercholesterolemia, unspecified; I10 Essential (primary) hypertension; F17.290 Nicotine dependence, other tobacco product, uncomplicated; E66.9 Obesity, unspecified
CPT/HCPCS: 74177; 80048; 81001; 84703; 85025; 96361; 96374; 96375; 96376; 99283; J7030; Q9967; A4216; J2405

== ENCOUNTER 2023-03-16 21:12 | Emergency (ER) | payer MEDICAID, SELFPAY ==
[2023-03-16 21:13] VITALS: BP 138/114; PULSE 85; RESP 16; TEMP 36.4; O2SAT 98; BMI 35.8
--- NOTE | 2023-03-16 21:40 | EDS_ITS ---
HPI HPI - Female History of Present Illness Chief Complaint: Complaint Informant: patient Associated Symptoms Associated Symptoms: Positive for Hematuria Narrative Narrative: 32-year-old female history of kidney stones and UTIs. Prior hysterectomy due to endometriosis and also prior cholecystectomy. States that the last several days she has had suprapubic abdominal pelvic cramping with hematuria. Thinks she may have a UTI. States a week ago she had a URI and was treated with Augmentin. She has now been off that antibiotic. Prior similar symptoms: Yes Recent Illness/Hospitalization: No PFSH PFSH Medical History Alcohol use Anxiety Back pain Bilateral renal stones Bipolar disorder Cardiology follow-up encounter Chronic interstitial cystitis Conversion disorder Depression Easy bruising Endometriosis Environmental and seasonal allergies Fatty liver Fibromyalgia Gastric reflux High cholesterol History of cervical cancer History of echocardiogram History of edema History of renal disease History of stress test Hypertension Kidney stone Left renal stone Leg cramps Marijuana use Migraine Peptic ulcer of stomach Restless legs Smoker Syncope Wears dentures Wears glasses Home Medications acidophilus 100 million cell-pectin, citrus 10 mg capsule 1 cap PO DAILY 09/22/21 [History Last Taken Unknown] albuterol sulfate 90 mcg/actuation aerosol inhaler (Ventolin HFA) 2 puff inhalation Q6H PRN Shortness Of Breath 09/22/21 [History Last Taken Unknown] diphenhydramine HCl 50 mg capsule 50 mg PO Q6H PRN Allergic Symptoms 09/22/21 [History Last Taken Unknown] dupilumab 300 mg/2 mL subcutaneous syringe (DupixnewMentor) 300 mg subcut .[id number] 09/22/21 [History Last Taken Unknown] erenumab-aooe 70 mg/mL subcutaneous auto-injector (Aimovig Autoinjector) 70 mg subcut QMONTH migrains 09/22/21 [History Last Taken Unknown] escitalopram oxalate 20 mg tablet (Lexapro) 20 mg PO DAILY 09/22/21 [History Last Taken Unknown] fluticasone propionate 50 mcg/actuation nasal spray,suspension 1 spray intranasal DAILY ALLERGIES 09/22/21 [History Last Taken Unknown] omeprazole 40 mg capsule,delayed release 40 mg PO DAILY 09/22/21 [History Last Taken Unknown] tizanidine 4 mg capsule 4 mg PO Q8H PRN Back Pain 09/22/21 [History Last Taken Unknown] propranolol 10 mg tablet 10 mg PO DAILY BP 12/26/21 [History Last Taken Unknown] pregabalin 50 mg capsule 50 mg PO QHS 01/30/23 [History Last Taken Unknown] quetiapine 50 mg tablet,extended release 24 hr 100 mg PO DAILY 01/30/23 [History Last Taken Unknown] oxycodone-acetaminophen 5 mg-325 mg tablet (Percocet) 1 tab PO Q4H PRN pain 2 days #6 tabs 03/16/23 [Rx Last Taken Unknown] Allergy/AdvReac Type Severity Reaction Status Date / Time amitriptyline Allergy MUSCLE Verified 03/16/23 21:31 SPASMS Bleach (Sodium Hypochlorite) Allergy Hives Verified 03/16/23 21:31 codeine Allergy Hives Verified 03/16/23 21:31 ketorolac [From Toradol] Allergy Itching Verified 03/16/23 21:31 nitrofurantoin Allergy Anaphylaxis Verified 03/16/23 21:31 [From Macrodantin] doxycycline AdvReac Vomiting Verified 03/16/23 21:31 Family History Mother Hypertension Migraine Grandmother CVA (cerebral vascular accident) Grandfather Diabetes Father Myocardial infarction Surgical History History of cystoscopy History of hysterectomy Hx of cholecystectomy S/P laparoscopic surgery Social History household members: significant other Smoking Status: Current every day smoker tobacco type: e-cigarettes alcohol intake: current details: occasionally substance use type: does not use caffeine: Yes what type of physical activity do you participate in: walking frequency: 1-2 times per week seatbelt use: always do you feel safe at home: Yes additional social history: Single ROS ROS ED ROS Narrative Hematuria. Review of Systems ROS Unobtainable: Denies due to encephalopathy or other Constitutional Constitutional ED: Denies chills or fever(s) Eyes Eyes: Denies blurry vision ENT ENT ED: Denies ear pain Cardiovascular Cardiovascular: Denies chest pain Respiratory/Chest Respiratory/Chest: Denies cough or dyspnea Gastrointestinal Gastrointestinal: Reports abdominal pain Genitourinary Genitourinary ED: Reports hematuria; Denies dysuria Musculoskeletal Musculoskeletal: Denies arthralgias Integumentary Denies abscess Neurologic Neurologic: Denies headache(s) Psychiatric Psychiatric: Denies anxiety or depression Endocrine Endocrinology: Denies heat intolerance Hematologic/Lymphatic Hematologic/Lymphatic: Denies easy bleeding Allergic/Immunologic Allergic/Immunologic ED: Denies mouth swelling EXAM Physical Exam Narrative Exam Narrative: Well-appearing 32-year-old female. Vital signs are stable blood pressure elevated 130/114 be rechecked. HEENT exam unremarkable. Neck nontender. Lungs clear. Heart regular rhythm no murmur. Abdomen soft nondistended. Normal bowel sounds no peritoneal signs. Mild suprapubic tenderness. No hernia or mass. No signs of obstruction. Moving all 4 extremities. Back nontender. No CVA tenderness. Neurologically she is awake alert with no focal motor deficits. Const Vital Signs: 03/16/23 21:13 03/16/23 22:07 03/16/23 23:06 Temperature 97.5 F L 98.1 F Temperature Source Temporal Temporal Pulse Rate 85 80 86 Respiratory Rate 16 18 18 Blood Pressure 138/114 H 137/79 H 136/70 H Blood Pressure Mean 122 98 92 Pulse Ox 98 98 97 Oxygen Delivery Method Room Air Room Air Room Air Positive well nourished, well developed and obese; Negative for cachectic or unkempt General Appearance ED: well developed and NAD; Negative for unkempt, cachectic or pallor Nutritional Appearance: obese; Negative for cachectic HEENT Reports moist mucous membranes Negative for trauma or tenderness Eyes PERRL and EOMs intact bilaterally General Eye ED: Negative for pale conjunctiva or scleral icterus Neck no lymphadenopathy, supple and no JVD General: Negative for other Thyroid: Negative for tender Lymph Lymphatic: Negative for other Chest Wall inspection of chest normal and palpation of chest normal Chest: Negative for other Resp normal respiratory effort and clear to auscultation bilaterally Effort and Inspection: Negative for pain with movement Auscultation: Negative for rales, rhonchi or wheezes Cardio regular rate, regular rhythm, S1 normal heart sound, no murmurs and no JVD Rate: Negative for bradycardia or tachycardic Rhythm: Negative for abnormal rhythm GI normal to inspection, nondistended, normoactive bowel sounds, soft to palpation, non-distended and no masses; Negative for non-tender GI Narrative: Very mild suprapubic tenderness. Auscultation: normoactive bowel sounds Palpation: tender; Negative for guarding Back/Spine no CVA tenderness General Back: Negative for CVA tenderness Cervical Spine: Negative for cervical spine tenderness Thoracic Spine / Upper Back: Negative for thoracic spinal tenderness Lumbar Spine / Lower Back: Negative for lumbar spinal tenderness Extremity normal to inspection and full ROM General Extremety ED: Negative for edema or tenderness General Extremity: Negative for edema Neuro oriented x3 and CN's II-XII intact bilaterally Sensorium / Orientation: alert, oriented to person, oriented to place and oriented to time; Negative for confused, lethargic or stuporous Motor Exam: strength 5/5 throughout Psych mental status grossly normal Appearance: Negative for unkempt Attitude: No agitated Speech: No other Mood & Affect: Negative for depressed, anxious or tearful Skin no rashes or lesions noted General Skin Exam: Negative for jaundice or pallor Rashes: No rashes noted MDM MDM MDM Narrative Medical decision making narrative: 32-year-old female with suprapubic abdominal discomfort. She has had prior total hysterectomy due to endometriosis and cervical cancer. Clinically is most likely UTI consider kidney stone and will think that is likely however. She will be given morphine for pain and Zofran for nausea. UA and labs to be obtained. At this time I do not think she needs imaging. Patient doing well on repeat exam at 11:30 PM. I reviewed her old records she has had like 8 CTs abdomen pelvis in the last year to year and a half. None of showed an acute kidney stone. There is a chronic stone in her left kidney. With no blood in her urine I do not think this is acute kidney stone. She does not have a UTI. Patient thinks she has a kidney stone. I explained her she did not need another CAT scan. She will be discharged home with 5 Percocet for pain. Strain your urine for possible stone. History & Record Review Discussion w/independent historian: Patient Lab Data Attestation: I reviewed the patient's lab results. Lab results narrative: CBC unremarkable. White count 8. H&H of 12.9 and 39. Platelets 189. Electrolytes show a gap of 6. Normal BUN and creatinine. Glucose 104. Urinalysis is negative. no infection. No blood. Labs: Laboratory Results - last 24 hr 03/16/23 03/16/23 03/16/23 21:40 22:05 22:05 WBC 8.2 RBC 4.21 Hgb 12.9 Hct 39.2 MCV 93.1 MCH 30.6 MCHC 32.9 RDW Std Deviation 44.6 H RDW Coeff of Romario 13.2 Plt Count 189 MPV 12.3 H Immature Gran % (Auto) 0.200 Neut % (Auto) 61.4 Lymph % (Auto) 33.4 [place] % (Auto) 4.3 Eos % (Auto) 0.5 Baso % (Auto) 0.2 Absolute Neuts (auto) 5.0 Absolute Lymphs (auto) 2.72 Nucleated RBC % 0 Sodium 140 Potassium 3.6 Chloride 110 H Carbon Dioxide 24.0 Anion Gap 6 BUN 11 Creatinine 0.87 Estim Creat Clear Calc 76.79 Est GFR (MDRD) Af Amer 97 Est GFR (MDRD) Non-Af 80 BUN/Creatinine Ratio 12.7 Glucose 104 Calcium 9.4 Urine Color Yellow Urine Clarity Clear Urine pH 7.0 Ur Specific [place] 1.010 Urine Protein Negative Urine Glucose (UA) Normal Urine Ketones Negative Urine Occult Blood 10 H Urine Nitrite Negative Urine Bilirubin Negative Urine Urobilinogen Normal Ur Leukocyte Esterase Negative Urine RBC 0-5 SEEN Urine WBC 0 SEEN Ur Squamous Epith Cells 0-5 SEEN Urine Bacteria 0 SEEN Urine Mucus 0 SEEN Discharge Plan Triage Chief Complaint: Complaint ED Provider: Satya Page Dx/Rx/DC Orders Clinical Impression: Acute flank pain, History of renal stone Instructions: ED Flank Pain, Uncertain Cause Prescriptions: New oxycodone-acetaminophen [Percocet] 5-325 mg tablet 1 tab PO Q4H PRN (Reason: pain) 2 Days Qty: 6 0RF No Action propranolol 10 mg tablet 10 mg PO DAILY diphenhydramine HCl 50 mg Capsule 50 mg PO Q6H PRN (Reason: Allergic Symptoms) omeprazole 40 mg Capsule,Delayed Release(Dr/Ec) 40 mg PO DAILY albuterol sulfate [Ventolin HFA] 90 mcg/actuation Hfa Aerosol Inhaler 2 puff INHALATION Q6H PRN (Reason: Shortness Of Breath) fluticasone propionate 50 mcg/actuation [place],Suspension 1 spray INTRANASAL DAILY escitalopram oxalate [Lexapro] 20 mg Tablet 20 mg PO DAILY tizanidine 4 mg Capsule 4 mg PO Q8H PRN (Reason: Back Pain) acidophilus-pectin, citrus 100 million cell-10 mg Capsule 1 cap PO DAILY Dupixent Syringe 300 mg/2 mL Syringe 300 mg SUBCUT .[id number] Rx Instructions: EVERY 2 WEEKS Aimovig Autoinjector 70 mg/mL Auto-Injector 70 mg SUBCUT QMONTH quetiapine 50 mg tablet extended release 24 hr 100 mg PO DAILY pregabalin 50 mg capsule 50 mg PO QHS Primary Care Provider: Elizabeth Spear NP Referrals: Elizabeth Spear NP, [employer] [Primary Care Provider] - 3-5 Days if not improving Activity Restrictions/Additional Instructions: Motrin limited Percocet for pain. Plenty of fluids. Strain your urine for possible stone even though clinically at this time I do not think this is from a kidney stone. Follow-up with your primary care provider. Disposition Disposition: Home, Self Care
[2023-03-16 21:57] LABS: Bacteria 0 SEEN /hpf (None Seen); Mucous, Urine 0 SEEN /hpf (<or=2+)
[2023-03-16 22:07] VITALS: BP 137/79; PULSE 80; RESP 18; TEMP 36.7; O2SAT 98
[2023-03-16 22:13] LABS: Color, Urine Yellow (Yellow); Glucose, Dipstick Normal (Normal); Ketone-Dipstick Negative (Negative); Leukocyte Esterase-Dipstick Negative /ul (Negative); Nitrite-Dipstick Negative (Negative); Occult Blood-Urine 10 /ul (Negative); Protein-Dipstick Negative (Negative); Urine Bilirubin Dipstick Negative (Negative); Urine Urobilinogen Normal (Normal)
[2023-03-16 22:16] LABS: Urine Clarity Clear (Clear)
[2023-03-16 22:16] LABS: Absolute Lymphocyte Count 2.72 X10^3/uL (0.83-4.51); Basophil# 0.02 X10^3/uL; Basophil% 0.2 % (0-1); Eosinophil# 0.04 X10^3/uL; Eosinophils% 0.5 % (0-5); Hematocrit 39.2 % (37-47); Hemoglobin 12.9 g/dL (12.0-15.0); Lymphocyte # 2.72 X10^3/ul (0.83-4.51); Lymphocyte % 33.4 % (19-41); Mean Corp Hgb Conc 32.9 g/dL (32-36); Mean Corpuscular Hgb 30.6 pg (27.0-32.0); Mean Corpuscular Volume 93.1 fL (81-99); Mean Platelet Vol. 12.3 fl (6.2-12.0); Monocyte# 0.35 X10^3/uL; Monocyte% 4.3 % (0-10); NRBC Flagged by Analyzer 0 % (0-5); Neutrophil % 61.4 % (47-70); Platelet Count 189 K/mm3 (150-450); RBC Distribution Width CV 13.2 % (11.6-14.6); RBC Distribution Width SD 44.6 fl (35.1-43.9); Red Blood Count 4.21 M/mm3 (4.2-5.4); White Blood Count 8.2 K/mm3 (4.4-11.0)
[2023-03-16 22:19] LABS: Red Blood Cells-Urine 0-5 SEEN /hpf (0-5); Squamous Epithelial Cells - UA 0-5 SEEN /hpf (5-10); White Blood Cells 0 SEEN /hpf (0-5)
[2023-03-16 22:27] LABS: Anion Gap 6 (5-15); BUN 11 mg/dL (7-18); BUN/Creat Ratio 12.7 RATIO (10-20); Calcium,Total 9.4 mg/dL (8.5-10.1); Chloride 110 mmol/L (98-107); Creatinine, Serum 0.87 mg/dL (0.55-1.02); EST Glomerular Filtration Rate 80 mL/min (>60); Est Glom Filt Rate - Afr Amer 97 mL/min (>60); Estimated Creatinine Clearance 76.79 ml/min; Glucose 104 mg/dL (74-106); Potassium 3.6 mmol/L (3.5-5.1); Sodium Level 140 mmol/L (136-145)
[2023-03-16] MEDS: morphine 8 MG/ML Syringe 6 MG IV (22:36)
[2023-03-16] MEDS: Ondansetron 4 MG/2 ML Vial IV (22:37)
[2023-03-16 23:06] VITALS: BP 136/70; PULSE 86; RESP 18; O2SAT 97
[2023-03-17 00:06] VITALS: BP 132/94; PULSE 76; RESP 16; O2SAT 97
== END 2023-03-17 00:07 | disposition home or self-care (01) ==
PROVIDERS: Emergency Provider Emergency Medicine; PCP Nurse Practitioner Primary Care; Visit Provider Emergency Medicine
DX: R10.9 Unspecified abdominal pain (principal); E78.00 Pure hypercholesterolemia, unspecified; F17.290 Nicotine dependence, other tobacco product, uncomplicated; I10 Essential (primary) hypertension; R31.9 Hematuria, unspecified; Z87.440 Personal history of urinary (tract) infections; Z87.442 Personal history of urinary calculi; Z90.710 Acquired absence of both cervix and uterus; Z90.49 Acquired absence of other specified parts of digestive tract; E66.9 Obesity, unspecified
CPT/HCPCS: 80048; 81001; 85025; 96374; 96375; 99282; A4216; J2405

== ENCOUNTER 2023-05-19 18:02 | Emergency (ER) | payer MEDICAID, SELFPAY ==
[2023-05-19 18:03] VITALS: BP 140/97; PULSE 91; RESP 14; TEMP 36.7; O2SAT 100; BMI 34.6
--- NOTE | 2023-05-19 18:32 | EDS_ITS ---
HPI HPI - GI History of Present Illness Chief Complaint: Abd Pain Informant: patient Narrative Narrative: Patient started having lower abdominal discomfort yesterday, radiating around to her back, more in the right than the back left, day prior to the onset of pain she noticed blood in her underwear which was otherwise asymptomatic, she states she has had a total hysterectomy and also has had the bleeding occur in the past with both kidney stones and kidney infections, she states they progressed quickly. Now when she wipes she sees some blood but no further significant bleeding, and upon urinating for a urine sample here prior to my evaluation there is no gross blood. [facility] Medical History Alcohol use Anxiety Back pain Bilateral renal stones Bipolar disorder Cardiology follow-up encounter Chronic interstitial cystitis Conversion disorder Depression Easy bruising Endometriosis Environmental and seasonal allergies Fatty liver Fibromyalgia Gastric reflux High cholesterol History of cervical cancer History of echocardiogram History of edema History of renal disease History of stress test Hypertension Kidney stone Left renal stone Leg cramps Marijuana use Migraine Peptic ulcer of stomach Restless legs Smoker Syncope Wears dentures Wears glasses Home Medications acidophilus 100 million cell-pectin, citrus 10 mg capsule 1 cap PO DAILY 09/22/21 [History Last Taken Unknown] albuterol sulfate 90 mcg/actuation aerosol inhaler (Ventolin HFA) 2 puff inhalation Q6H PRN Shortness Of Breath 09/22/21 [History Last Taken Unknown] diphenhydramine HCl 50 mg capsule 50 mg PO Q6H PRN Allergic Symptoms 09/22/21 [History Last Taken Unknown] dupilumab 300 mg/2 mL subcutaneous syringe ([facility]) 300 mg subcut .[id number] 09/22/21 [History Last Taken Unknown] erenumab-aooe 70 mg/mL subcutaneous auto-injector (Aimovig Autoinjector) 70 mg subcut QMONTH migrains 09/22/21 [History Last Taken Unknown] escitalopram oxalate 20 mg tablet (Lexapro) 20 mg PO DAILY 09/22/21 [History Last Taken Unknown] fluticasone propionate 50 mcg/actuation nasal spray,suspension 1 spray intranasal DAILY ALLERGIES 09/22/21 [History Last Taken Unknown] omeprazole 40 mg capsule,delayed release 40 mg PO DAILY 09/22/21 [History Last Taken Unknown] tizanidine 4 mg capsule 4 mg PO Q8H PRN Back Pain 09/22/21 [History Last Taken Unknown] propranolol 10 mg tablet 10 mg PO DAILY BP 12/26/21 [History Last Taken Unknown] pregabalin 50 mg capsule 50 mg PO QHS 01/30/23 [History Last Taken Unknown] quetiapine 50 mg tablet,extended release 24 hr 100 mg PO DAILY 01/30/23 [History Last Taken Unknown] hydrocodone-acetaminophen 5-325mg 5mg-325mg 1 tab PO Q4H PRN PRN Pain 2 days #10 TABLETS 05/19/23 [Rx Last Taken Unknown] sulfamethoxazole 800 mg-trimethoprim 160 mg tablet 1 tab PO BID #28 TABLETS 05/19/23 [Rx Last Taken Unknown] Allergy/AdvReac Type Severity Reaction Status Date / Time amitriptyline Allergy MUSCLE Verified 05/19/23 18:03 SPASMS Bleach (Sodium Hypochlorite) Allergy Hives Verified 05/19/23 18:03 codeine Allergy Hives Verified 05/19/23 18:03 ketorolac [From Toradol] Allergy Itching Verified 05/19/23 18:03 nitrofurantoin Allergy Anaphylaxis Verified 05/19/23 18:03 [From Macrodantin] doxycycline AdvReac Vomiting Verified 05/19/23 18:03 Family History Mother Hypertension Migraine Grandmother CVA (cerebral vascular accident) Grandfather Diabetes Father Myocardial infarction Surgical History History of cystoscopy History of hysterectomy Hx of cholecystectomy S/P laparoscopic surgery Social History household members: significant other Smoking Status: Current every day smoker tobacco type: e-cigarettes alcohol intake: current details: occasionally substance use type: does not use caffeine: Yes what type of physical activity do you participate in: walking frequency: 1-2 times per week seatbelt use: always do you feel safe at home: Yes additional social history: Single ROS ROS ED Constitutional Constitutional ED: Denies chills or fever(s) Eyes Eyes: Denies change in vision or diplopia ENT ENT ED: Denies rhinorrhea or sore throat Cardiovascular Cardiovascular: Denies chest pain or palpitations Respiratory/Chest Respiratory/Chest: Denies cough or dyspnea Gastrointestinal Gastrointestinal: Reports abdominal pain and nausea; Denies diarrhea or vomiting Genitourinary Genitourinary ED: Reports hematuria and urinary frequency; Denies dysuria Musculoskeletal Musculoskeletal: Reports back pain; Denies neck pain Integumentary Denies abscess or rash Neurologic Neurologic: Denies headache(s), paresthesias or weakness Psychiatric Psychiatric: Denies anxiety or suicidal thoughts EXAM Physical Exam Const Vital Signs: 05/19/23 18:03 Temperature 98.1 F Temperature Source Temporal Pulse Rate 91 Respiratory Rate 14 Blood Pressure 140/97 H Blood Pressure Mean 111 Pulse Ox 100 Oxygen Delivery Method Room Air Positive well nourished, well developed and obese Constitutional Narrative: Well-appearing General Appearance ED: well developed and NAD Nutritional Appearance: obese HEENT Reports moist mucous membranes normocephalic and atraumatic Eyes PERRL and EOMs intact bilaterally Neck full ROM and supple Resp normal respiratory effort and clear to auscultation bilaterally Cardio regular rate, regular rhythm and no murmurs Rate: Negative for tachycardic GI non-distended GI Narrative: Tender lower abdomen mostly suprapubic and right lower quadrant Auscultation: normoactive bowel sounds Palpation: soft Back/Spine General Back: CVA tenderness right and other FROM Extremity normal to inspection General Extremety ED: Negative for edema, pulses abnormal or tenderness General Extremity: Negative for edema or pulses abnormal Neuro oriented x3, CN's II-XII intact bilaterally and no sensory deficits noted Sensorium / Orientation: awake and alert Motor Exam: strength 5/5 throughout Skin no rashes or lesions noted and no wounds MDM MDM MDM Narrative Medical decision making narrative: Urinalysis consistent with infection. Therefore a lot less likely to be a stone especially since the pain was gradual in onset not sudden. I do not think she needs advanced imaging at this time although we actually considered it, but we decided to wait until the urinalysis returned. Culture is sent, her pain is treated and controlled with medications, she is given an initial dose of IV Rocephin, and her urine is sent for culture. She is not septic, she is well- appearing, and cannot be since she had a hysterectomy so outpatient treatment is appropriate. Discussed with her will prescribe analgesics and antibiotics and outpatient follow-up advised. Lab Data Attestation: I reviewed the patient's lab results. Labs: Laboratory Results - last 24 hr 05/19/23 05/19/23 18:38 18:41 WBC 9.4 RBC 4.49 Hgb 13.3 Hct 40.9 MCV 91.1 MCH 29.6 MCHC 32.5 RDW Std Deviation 44.1 H RDW Coeff of Romario 13.2 Plt Count 231 MPV 11.4 Immature Gran % (Auto) 0.300 Neut % (Auto) 71.4 H Lymph % (Auto) 23.4 [place] % (Auto) 4.5 Eos % (Auto) 0.2 Baso % (Auto) 0.2 Absolute Neuts (auto) 6.7 Absolute Lymphs (auto) 2.20 Nucleated RBC % 0 Sodium 139 Potassium 3.7 Chloride 109 H Carbon Dioxide 23.0 Anion Gap 7 BUN 17 Creatinine 0.99 Estim Creat Clear Calc 67.48 Est GFR (MDRD) Af Amer 83 Est GFR (MDRD) Non-Af 69 BUN/Creatinine Ratio 17.2 Glucose 95 Calcium 9.3 Urine Color Yellow Urine Clarity Sl. Cloudy Urine pH 6.5 Ur Specific [place] 1.010 Urine Protein 30 H Urine Glucose (UA) Normal Urine Ketones Negative Urine Occult Blood 150 H Urine Nitrite Negative Urine Bilirubin Negative Urine Urobilinogen 1 H Ur Leukocyte Esterase 500 H Urine RBC 10-25 SEEN Urine WBC 50-100 SEEN Ur Squamous Epith Cells 0-5 SEEN Urine Bacteria RARE Urine Mucus 0 SEEN Discharge Plan Triage Chief Complaint: Abd Pain ED Provider: Adelso Jackson Dx/Rx/DC Orders Clinical Impression: Pyelonephritis Instructions: ED Pyelonephritis, Female (Adult) Prescriptions: New hydrocodone-acetaminophen [hydrocodone-acetaminophen] 5-325 mg tablet 1 tab PO Q4H PRN PRN (Reason: Pain) 2 Days Qty: 10 0RF sulfamethoxazole-trimethoprim [sulfamethoxazole-trimethoprim] 800-160 mg tablet 1 tab PO BID Qty: 28 0RF No Action propranolol 10 mg tablet 10 mg PO DAILY diphenhydramine HCl 50 mg Capsule 50 mg PO Q6H PRN (Reason: Allergic Symptoms) omeprazole 40 mg Capsule,Delayed Release(Dr/Ec) 40 mg PO DAILY albuterol sulfate [Ventolin HFA] 90 mcg/actuation Hfa Aerosol Inhaler 2 puff INHALATION Q6H PRN (Reason: Shortness Of Breath) fluticasone propionate 50 mcg/actuation [place],Suspension 1 spray INTRANASAL DAILY escitalopram oxalate [Lexapro] 20 mg Tablet 20 mg PO DAILY tizanidine 4 mg Capsule 4 mg PO Q8H PRN (Reason: Back Pain) acidophilus-pectin, citrus 100 million cell-10 mg Capsule 1 cap PO DAILY Dupixent Syringe 300 mg/2 mL Syringe 300 mg SUBCUT .[id number] Rx Instructions: EVERY 2 WEEKS Aimovig Autoinjector 70 mg/mL Auto-Injector 70 mg SUBCUT QMONTH quetiapine 50 mg tablet extended release 24 hr 100 mg PO DAILY pregabalin 50 mg capsule 50 mg PO QHS Primary Care Provider: Elizabeth Spear NP Referrals: Elizabeth Spear NP, [employer] [Primary Care Provider] - 3-5 Days Activity Restrictions/Additional Instructions: You cannot take Cipro because you are on psychiatric medications that interact. Therefore you will have to take Bactrim according to your list of allergies of what you are allowed to take, and you will have to take it for 2 weeks. Disposition Disposition: Home, Self Care
[2023-05-19 18:46] LABS: Mucous, Urine 0 SEEN /hpf (<or=2+)
[2023-05-19] MEDS: Ondansetron 4 MG/2 ML Vial IV (18:49)
[2023-05-19] MEDS: Morphine 4 MG/ML Syringe IV ×2 (18:49→20:33)
[2023-05-19] MEDS: 0.9% Normal Saline 1,000 ML 999 ML IV (18:49)
[2023-05-19 18:50] LABS: Absolute Neutrophil Count 6.7 X10^3/uL (2.0-7.7); Basophil# 0.02 X10^3/uL; Basophil% 0.2 % (0-1); Eosinophil# 0.02 X10^3/uL; Eosinophils% 0.2 % (0-5); Hematocrit 40.9 % (37-47); Hemoglobin 13.3 g/dL (12.0-15.0); Lymphocyte % 23.4 % (19-41); Mean Corp Hgb Conc 32.5 g/dL (32-36); Mean Corpuscular Hgb 29.6 pg (27.0-32.0); Mean Corpuscular Volume 91.1 fL (81-99); Mean Platelet Vol. 11.4 fl (6.2-12.0); Monocyte# 0.42 X10^3/uL; Monocyte% 4.5 % (0-10); NRBC Flagged by Analyzer 0 % (0-5); Neutrophil # 6.71 X10^3/uL (2.7-7.7); Neutrophil % 71.4 % (47-70); Platelet Count 231 K/mm3 (150-450); RBC Distribution Width CV 13.2 % (11.6-14.6); RBC Distribution Width SD 44.1 fl (35.1-43.9); Red Blood Count 4.49 M/mm3 (4.2-5.4); White Blood Count 9.4 K/mm3 (4.4-11.0)
[2023-05-19 18:53] LABS: Color, Urine Yellow (Yellow); Glucose, Dipstick Normal (Normal); Ketone-Dipstick Negative (Negative); Leukocyte Esterase-Dipstick 500 /ul (Negative); Nitrite-Dipstick Negative (Negative); Occult Blood-Urine 150 /ul (Negative); Protein-Dipstick 30 mg/dl (Negative); Urine Bilirubin Dipstick Negative (Negative); Urine Clarity Sl. Cloudy (Clear); Urine Urobilinogen 1 mg/dl (Normal); Urine pH 6.5 (5.0 - 8.0)
[2023-05-19 19:05] LABS: Anion Gap 7 (5-15); BUN 17 mg/dL (7-18); BUN/Creat Ratio 17.2 RATIO (10-20); Calcium,Total 9.3 mg/dL (8.5-10.1); Chloride 109 mmol/L (98-107); Creatinine, Serum 0.99 mg/dL (0.55-1.02); EST Glomerular Filtration Rate 69 mL/min (>60); Est Glom Filt Rate - Afr Amer 83 mL/min (>60); Estimated Creatinine Clearance 67.48 ml/min; Glucose 95 mg/dL (74-106); Potassium 3.7 mmol/L (3.5-5.1); Sodium Level 139 mmol/L (136-145)
[2023-05-19 19:13] LABS: Bacteria RARE /hpf (None Seen); Red Blood Cells-Urine 10-25 SEEN /hpf (0-5); Squamous Epithelial Cells - UA 0-5 SEEN /hpf (5-10); White Blood Cells 50-100 SEEN /hpf (0-5)
[2023-05-19] MEDS: Ceftriaxone 1 GM/50 ML BAG IV (20:33)
[2023-05-19 20:38] VITALS: BP 142/82; PULSE 78; RESP 18; TEMP 36.7; O2SAT 99
== END 2023-05-19 21:49 | disposition home or self-care (01) ==
PROVIDERS: Emergency Provider Emergency Medicine; PCP Nurse Practitioner Primary Care; Visit Provider Emergency Medicine
DX: N12 Tubulo-interstitial nephritis, not specified as acute or chronic (principal); I10 Essential (primary) hypertension; E78.00 Pure hypercholesterolemia, unspecified; F17.290 Nicotine dependence, other tobacco product, uncomplicated; Z79.899 Other long term (current) drug therapy
CPT/HCPCS: 80048; 81001; 85025; 87077; 87086; 87088; 96361; 96365; 96375; 96376; 99282; J7030; A4216; J2405

== ENCOUNTER 2023-05-22 19:58 | Emergency (ER) | payer MEDICAID, SELFPAY ==
[2023-05-22 19:59] VITALS: BP 150/110; PULSE 88; RESP 18; TEMP 36.3; BMI 34.9
[2023-05-22 20:02] VITALS: BP 150/110; PULSE 88; RESP 18; TEMP 36.3
--- NOTE | 2023-05-22 20:40 | EX.ED.DYSGE1 ---
HPI History of Present Illness Chief Complaint: Abd Pain Detail of Chief Complaint: Recently seen feels worse. Treated for pyelonephritis Informant: patient Onset/Context/Timing Onset: Days Context: Sudden Onset Timing: Continuous and Waxes and wanes Quality: Pain right side of the abdomen and right side of the back Location: Right side of torso anterior and posterior Current Severity: Mild Maximum Severity: Severe Worsened by: Palpation Relieved by: Nothing Associated Symptoms Associated Symptoms: Reported temperature to 100.5. Initially she said to 105. Also with nause Narrative Narrative: Patient is a 32-year-old woman who was seen in February of this year by Dr. Page for flank pain. She has history of renal calculi. There is no determine etiology of her pain. She was seen on 17 May and treated for pyelonephritis. Urine culture is not consistent with infection or pyelonephritis. Patient states she feels no better. She has nausea and vomiting. She has temperature reportedly to 100.5. She does complain of myalgias arthralgias. Does report mild headache. Denies photophobia, neck pain or neck stiffness. She does report slight cough. The cough is nonproductive. Has not noted a rash. She denies vaginal discharge. She denies frequency or urgency. Prior similar symptoms: Yes Recent Illness/Hospitalization: Yes PFSH [facility] Medical History Alcohol use Anxiety Back pain Bilateral renal stones Bipolar disorder Cardiology follow-up encounter Chronic interstitial cystitis Conversion disorder Depression Easy bruising Endometriosis Environmental and seasonal allergies Fatty liver Fibromyalgia Gastric reflux High cholesterol History of cervical cancer History of echocardiogram History of edema History of renal disease History of stress test Hypertension Kidney stone Left renal stone Leg cramps Marijuana use Migraine Peptic ulcer of stomach Restless legs Smoker Syncope Wears dentures Wears glasses Home Medications acidophilus 100 million cell-pectin, citrus 10 mg capsule 1 cap PO DAILY 09/22/21 [History Last Taken Unknown] albuterol sulfate 90 mcg/actuation aerosol inhaler (Ventolin HFA) 2 puff inhalation Q6H PRN Shortness Of Breath 09/22/21 [History Last Taken Unknown] diphenhydramine HCl 50 mg capsule 50 mg PO Q6H PRN Allergic Symptoms 09/22/21 [History Last Taken Unknown] dupilumab 300 mg/2 mL subcutaneous syringe (Dupixent) 300 mg subcut .[id number] 09/22/21 [History Last Taken Unknown] erenumab-aooe 70 mg/mL subcutaneous auto-injector (Aimovig Autoinjector) 70 mg subcut QMONTH migrains 09/22/21 [History Last Taken Unknown] escitalopram oxalate 20 mg tablet (Lexapro) 20 mg PO DAILY 09/22/21 [History Last Taken Unknown] fluticasone propionate 50 mcg/actuation nasal spray,suspension 1 spray intranasal DAILY ALLERGIES 09/22/21 [History Last Taken Unknown] omeprazole 40 mg capsule,delayed release 40 mg PO DAILY 09/22/21 [History Last Taken Unknown] tizanidine 4 mg capsule 4 mg PO Q8H PRN Back Pain 09/22/21 [History Last Taken Unknown] propranolol 10 mg tablet 10 mg PO DAILY BP 12/26/21 [History Last Taken Unknown] pregabalin 50 mg capsule 50 mg PO QHS 01/30/23 [History Last Taken Unknown] quetiapine 50 mg tablet,extended release 24 hr 100 mg PO DAILY 01/30/23 [History Last Taken Unknown] hydrocodone-acetaminophen 5-325mg 5mg-325mg 1 tab PO Q4H PRN PRN Pain 2 days #10 TABLETS 05/19/23 [Rx Last Taken Unknown] sulfamethoxazole 800 mg-trimethoprim 160 mg tablet 1 tab PO BID #28 TABLETS 05/19/23 [Rx Last Taken Unknown] Allergy/AdvReac Type Severity Reaction Status Date / Time amitriptyline Allergy MUSCLE Verified 05/22/23 20:03 SPASMS Bleach (Sodium Hypochlorite) Allergy Hives Verified 05/22/23 20:03 codeine Allergy Hives Verified 05/22/23 20:03 ketorolac [From Toradol] Allergy Itching Verified 05/22/23 20:03 nitrofurantoin Allergy Anaphylaxis Verified 05/22/23 20:03 [From Macrodantin] doxycycline AdvReac Vomiting Verified 05/22/23 20:03 Family History Mother Hypertension Migraine Grandmother CVA (cerebral vascular accident) Grandfather Diabetes Father Myocardial infarction Surgical History History of cystoscopy History of hysterectomy Hx of cholecystectomy S/P laparoscopic surgery Social History household members: significant other Smoking Status: Current every day smoker tobacco type: e-cigarettes alcohol intake: current details: occasionally substance use type: does not use caffeine: Yes what type of physical activity do you participate in: walking frequency: 1-2 times per week seatbelt use: always do you feel safe at home: Yes additional social history: Single ROS ROS ED Constitutional Constitutional ED: Reports chills and fever(s); Denies sweats Eyes Eyes: Denies blurry vision or change in vision ENT ENT ED: Reports rhinorrhea; Denies ear pain or sore throat Cardiovascular Cardiovascular: Denies chest pain, orthopnea, palpitations or racing heartbeat Respiratory/Chest Respiratory/Chest: Reports cough; Denies dyspnea, dyspnea on exertion or orthopnea Gastrointestinal Gastrointestinal: Reports abdominal pain, nausea and vomiting; Denies diarrhea or melena Genitourinary Genitourinary ED: Denies hematuria or urinary frequency Musculoskeletal Musculoskeletal: Reports arthralgias, back pain and myalgias Integumentary Denies rash Neurologic Neurologic: Reports headache(s); Denies paresthesias Endocrine Endocrinology: Denies cold intolerance or heat intolerance Hematologic/Lymphatic Hematologic/Lymphatic: Reports systems reviewed and no addt'l complaints, except as documented EXAM Physical Exam Const Vital Signs: 05/22/23 19:59 05/22/23 20:02 Temperature 97.3 F L 97.3 F L Temperature Source Temporal Temporal Pulse Rate 88 88 Respiratory Rate 18 18 Blood Pressure 150/110 H 150/110 H Blood Pressure Mean 123 123 Positive well nourished, well developed and obese Constitutional Narrative: Patient's mood is flat affect is depressed. General Appearance ED: well developed and NAD; Negative for cyanotic, diaphoretic or pallor Nutritional Appearance: obese HEENT HEENT Narrative: Head is atraumatic, cephalic. Ears normal. Nares patent. Posterior pharynx is normal. Eyes PERRL and EOMs intact bilaterally General Eye ED: Negative for pale conjunctiva or scleral icterus Neck no lymphadenopathy, supple and no JVD Chest Wall inspection of chest normal and palpation of chest normal Resp normal respiratory effort and clear to auscultation bilaterally Cardio regular rate, regular rhythm, S1 normal heart sound, S2 normal heart sound and no murmurs GI normal to inspection, nondistended, normoactive bowel sounds, non-tender, non-distended and no masses; Negative for hepatosplenomegaly Auscultation: hypoactive bowel sounds Palpation: soft Back/Spine General Back: CVA tenderness right (Exaggerated response to minimal stimulus.) Thoracic Spine / Upper Back: Negative for thoracic spinal tenderness Extremity Negative for normal to inspection Extremity Narrative: She does have psoriasis left leg. Otherwise extremity exam is unremarkable. Neuro oriented x3 and CN's II-XII intact bilaterally Sensorium / Orientation: alert Psych Mood & Affect: depressed Skin no wounds and skin turgor normal General Skin Exam: Negative for jaundice or pallor MDM MDM MDM Narrative Medical decision making narrative: ER visits for February and April visits were reviewed. Urine culture is not consistent with infection. This may represent a viral infection. Will reassess urine. Will obtain repeat blood work. Lab Data Attestation: I reviewed the patient's lab results. Lab results narrative: BC is normal. Basic metabolic panel is unremarkable other than a chloride of 109. Urine is negative. If anything it is a contaminated specimen. Labs: Laboratory Results - last 24 hr 05/22/23 21:05 WBC 5.6 RBC 4.46 Hgb 13.3 Hct 39.9 MCV 89.5 MCH 29.8 MCHC 33.3 RDW Std Deviation 43.3 RDW Coeff of Romario 13.2 Plt Count 220 MPV 11.8 Immature Gran % (Auto) 0.200 Neut % (Auto) 67.6 Lymph % (Auto) 25.6 [place] % (Auto) 5.2 Eos % (Auto) 1.4 Baso % (Auto) 0.0 Absolute Neuts (auto) 3.8 Absolute Lymphs (auto) 1.44 Nucleated RBC % 0 Sodium 139 Potassium 4.0 Chloride 109 H Carbon Dioxide 24.0 Anion Gap 6 BUN 10 Creatinine 1.00 Estim Creat Clear Calc 66.81 Est GFR (MDRD) Af Amer 82 Est GFR (MDRD) Non-Af 68 BUN/Creatinine Ratio 10.0 Glucose 101 Calcium 9.8 Urine Color Yellow Urine Clarity Sl. Cloudy Urine pH 6.5 Ur Specific [place] 1.015 Urine Protein Negative Urine Glucose (UA) Normal Urine Ketones Negative Urine Occult Blood 10 H Urine Nitrite Negative Urine Bilirubin Negative Urine Urobilinogen Normal Ur Leukocyte Esterase Negative Urine RBC 0 SEEN Urine WBC 0 SEEN Ur Squamous Epith Cells 5-10 SEEN Urine Bacteria RARE Urine Mucus 0 SEEN Treatment and Re-Evaluation :: Patient was informed the cause of her pain is unknown. Suspect that she has a viral illness with her symptomatology Discharge Plan Triage Chief Complaint: Abd Pain ED Provider: Rayray Irving Dx/Rx/DC Orders Clinical Impression: Acute right flank pain, Systemic viral illness, Right lateral abdominal pain Instructions: ED Viral Syndrome (Adult) Prescriptions: No Action propranolol 10 mg tablet 10 mg PO DAILY diphenhydramine HCl 50 mg Capsule 50 mg PO Q6H PRN (Reason: Allergic Symptoms) omeprazole 40 mg Capsule,Delayed Release(Dr/Ec) 40 mg PO DAILY albuterol sulfate [Ventolin HFA] 90 mcg/actuation Hfa Aerosol Inhaler 2 puff INHALATION Q6H PRN (Reason: Shortness Of Breath) fluticasone propionate 50 mcg/actuation [place],Suspension 1 spray INTRANASAL DAILY escitalopram oxalate [Lexapro] 20 mg Tablet 20 mg PO DAILY tizanidine 4 mg Capsule 4 mg PO Q8H PRN (Reason: Back Pain) acidophilus-pectin, citrus 100 million cell-10 mg Capsule 1 cap PO DAILY Dupixent Syringe 300 mg/2 mL Syringe 300 mg SUBCUT .[id number] Rx Instructions: EVERY 2 WEEKS Aimovig Autoinjector 70 mg/mL Auto-Injector 70 mg SUBCUT QMONTH quetiapine 50 mg tablet extended release 24 hr 100 mg PO DAILY pregabalin 50 mg capsule 50 mg PO QHS hydrocodone-acetaminophen [hydrocodone-acetaminophen] 5-325 mg tablet 1 tab PO Q4H PRN PRN (Reason: Pain) 2 Days Qty: 10 0RF sulfamethoxazole-trimethoprim [sulfamethoxazole-trimethoprim] 800-160 mg tablet 1 tab PO BID Qty: 28 0RF Primary Care Provider: Elizabeth Spear NP Referrals: Elizabeth Spear NP, [employer] [facility] [Primary Care Provider] - 3-5 Days if not improving Activity Restrictions/Additional Instructions: Recommend acetaminophen for fever and aches or ibuprofen. Disposition Disposition: Home, Self Care
[2023-05-22 21:09] LABS: Mucous, Urine 0 SEEN /hpf (<or=2+); Red Blood Cells-Urine 0 SEEN /hpf (0-5); White Blood Cells 0 SEEN /hpf (0-5)
[2023-05-22 21:11] LABS: Absolute Lymphocyte Count 1.44 X10^3/uL (0.83-4.51); Absolute Neutrophil Count 3.8 X10^3/uL (2.0-7.7); Eosinophil# 0.08 X10^3/uL; Eosinophils% 1.4 % (0-5); Hematocrit 39.9 % (37-47); Hemoglobin 13.3 g/dL (12.0-15.0); Lymphocyte # 1.44 X10^3/ul (0.83-4.51); Lymphocyte % 25.6 % (19-41); Mean Corp Hgb Conc 33.3 g/dL (32-36); Mean Corpuscular Hgb 29.8 pg (27.0-32.0); Mean Corpuscular Volume 89.5 fL (81-99); Mean Platelet Vol. 11.8 fl (6.2-12.0); Monocyte# 0.29 X10^3/uL; Monocyte% 5.2 % (0-10); NRBC Flagged by Analyzer 0 % (0-5); Neutrophil % 67.6 % (47-70); Platelet Count 220 K/mm3 (150-450); RBC Distribution Width CV 13.2 % (11.6-14.6); RBC Distribution Width SD 43.3 fl (35.1-43.9); Red Blood Count 4.46 M/mm3 (4.2-5.4); White Blood Count 5.6 K/mm3 (4.4-11.0)
[2023-05-22 21:14] LABS: Color, Urine Yellow (Yellow); Glucose, Dipstick Normal (Normal); Ketone-Dipstick Negative (Negative); Leukocyte Esterase-Dipstick Negative /ul (Negative); Nitrite-Dipstick Negative (Negative); Occult Blood-Urine 10 /ul (Negative); Protein-Dipstick Negative (Negative); Specific Gravity, Urine 1.015 (1.002-1.030); Urine Bilirubin Dipstick Negative (Negative); Urine Clarity Sl. Cloudy (Clear); Urine Urobilinogen Normal (Normal); Urine pH 6.5 (5.0 - 8.0)
[2023-05-22 21:20] LABS: Bacteria RARE /hpf (None Seen); Squamous Epithelial Cells - UA 5-10 SEEN /hpf (5-10)
[2023-05-22 21:24] LABS: Anion Gap 6 (5-15); BUN 10 mg/dL (7-18); Calcium,Total 9.8 mg/dL (8.5-10.1); Chloride 109 mmol/L (98-107); EST Glomerular Filtration Rate 68 mL/min (>60); Est Glom Filt Rate - Afr Amer 82 mL/min (>60); Estimated Creatinine Clearance 66.81 ml/min; Glucose 101 mg/dL (74-106); Sodium Level 139 mmol/L (136-145)
== END 2023-05-22 21:39 | disposition home or self-care (01) ==
PROVIDERS: Emergency Provider Emergency Medicine; PCP Nurse Practitioner Primary Care; Visit Provider Emergency Medicine
DX: R10.9 Unspecified abdominal pain (principal); B34.9 Viral infection, unspecified; E78.00 Pure hypercholesterolemia, unspecified; L40.9 Psoriasis, unspecified; I10 Essential (primary) hypertension; R11.2 Nausea with vomiting, unspecified; M54.9 Dorsalgia, unspecified; E66.9 Obesity, unspecified; F17.290 Nicotine dependence, other tobacco product, uncomplicated; Z87.442 Personal history of urinary calculi
CPT/HCPCS: 80048; 81001; 85025; 99282

== ENCOUNTER 2023-05-26 12:44 | Emergency (ER) | payer MEDICAID, SELFPAY ==
[2023-05-26] VITALS (7 sets, daily range): BP systolic 124–164; BP diastolic 70–99; PULSE 71–91; RESP 16–19; TEMP 36.3–36.8; O2SAT 98–100; BMI 34.3
[2023-05-26] MEDS: Ondansetron 4 MG/2 ML Vial IV (14:18)
[2023-05-26] MEDS: Morphine 4 MG/ML Syringe IV ×2 (14:19→15:51)
[2023-05-26] MEDS: 0.9% Normal Saline 1,000 ML 1000 ML IV (14:23)
[2023-05-26 14:46] LABS: Bacteria 0 SEEN /hpf (None Seen); Color, Urine Yellow (Yellow); Glucose, Dipstick Normal (Normal); Ketone-Dipstick Negative (Negative); Leukocyte Esterase-Dipstick Negative /ul (Negative); Mucous, Urine 0 SEEN /hpf (<or=2+); Nitrite-Dipstick Negative (Negative); Occult Blood-Urine 10 /ul (Negative); Protein-Dipstick Negative (Negative); Red Blood Cells-Urine 0 SEEN /hpf (0-5); Specific Gravity, Urine 1.005 (1.002-1.030); Urine Bilirubin Dipstick Negative (Negative); Urine Clarity Clear (Clear); Urine Urobilinogen Normal (Normal)
[2023-05-26 14:47] LABS: Absolute Lymphocyte Count 2.07 X10^3/uL (0.83-4.51); Absolute Neutrophil Count 5.6 X10^3/uL (2.0-7.7); Basophil# 0.02 X10^3/uL; Basophil% 0.2 % (0-1); Eosinophil# 0.03 X10^3/uL; Eosinophils% 0.4 % (0-5); Hematocrit 42.9 % (37-47); Hemoglobin 14.4 g/dL (12.0-15.0); Lymphocyte # 2.07 X10^3/ul (0.83-4.51); Lymphocyte % 25.6 % (19-41); Mean Corp Hgb Conc 33.6 g/dL (32-36); Mean Corpuscular Hgb 29.8 pg (27.0-32.0); Mean Corpuscular Volume 88.8 fL (81-99); Mean Platelet Vol. 11.8 fl (6.2-12.0); Monocyte# 0.38 X10^3/uL; Monocyte% 4.7 % (0-10); NRBC Flagged by Analyzer 0 % (0-5); Neutrophil # 5.57 X10^3/uL (2.7-7.7); Neutrophil % 68.9 % (47-70); Platelet Count 235 K/mm3 (150-450); RBC Distribution Width CV 13.4 % (11.6-14.6); RBC Distribution Width SD 43.8 fl (35.1-43.9); Red Blood Count 4.83 M/mm3 (4.2-5.4); White Blood Count 8.1 K/mm3 (4.4-11.0)
[2023-05-26 15:06] LABS: AST(SGOT) 42 U/L (15-37); Alanine Aminotransfer ALT/SGPT 44 U/L (13-56); Albumin, Serum 4.6 g/dL (3.2-5.0); Alkaline Phosphatase 123 U/L (45-117); Anion Gap 7 (5-15); BUN 12 mg/dL (7-18); BUN/Creat Ratio 12.4 RATIO (10-20); Calcium,Total 10.3 mg/dL (8.5-10.1); Chloride 107 mmol/L (98-107); Creatinine, Serum 0.96 mg/dL (0.55-1.02); EST Glomerular Filtration Rate 71 mL/min (>60); Est Glom Filt Rate - Afr Amer 86 mL/min (>60); Estimated Creatinine Clearance 69.59 ml/min; Globulin 4.4 g/dL (2.2-4.2); Glucose 106 mg/dL (74-106); Lipase 65 U/L (13-75); Potassium 4.7 mmol/L (3.5-5.1); Sodium Level 137 mmol/L (136-145)
[2023-05-26 15:09] LABS: Squamous Epithelial Cells - UA 0-5 SEEN /hpf (5-10); White Blood Cells 0-5 SEEN /hpf (0-5)
--- NOTE | 2023-05-26 15:21 | EDS_ITS ---
HPI History of Present Illness Chief Complaint: General Illness Informant: patient Onset/Context/Timing Onset: Weeks (1) Context: Gradual Onset Timing: Continuous Quality: Cramping, stabbing Location: Stomach, right flank Worsened by: Flexing her abdomen Relieved by: Nothing Narrative Narrative: Patient presents with right flank pain, nausea, and vomiting that has been constant for the past week. Patient states it is gradually gotten worse. Patient describes her pain as cramping in her stomach and stabbing over her right flank. Patient states it is worse when she curls up into a ball. Patient states nothing seems to help with her pain. Patient states her emesis is just stomach contents. Patient denies any hematemesis or coffee-ground emesis. Patient denies any diarrhea, melena, or hematochezia. Patient does admit to a low-grade fever of 101 at home. Patient admits to some shortness of breath. Patient admits to some hematuria but denies any dysuria or frequency. [facility] Medical History Alcohol use Anxiety Back pain Bilateral renal stones Bipolar disorder Cardiology follow-up encounter Chronic interstitial cystitis Conversion disorder Depression Easy bruising Endometriosis Environmental and seasonal allergies Fatty liver Fibromyalgia Gastric reflux High cholesterol History of cervical cancer History of echocardiogram History of edema History of renal disease History of stress test Hypertension Kidney stone Left renal stone Leg cramps Marijuana use Migraine Peptic ulcer of stomach Restless legs Smoker Syncope Wears dentures Wears glasses Home Medications acidophilus 100 million cell-pectin, citrus 10 mg capsule 1 cap PO DAILY 09/22/21 [History Last Taken Unknown] albuterol sulfate 90 mcg/actuation aerosol inhaler (Ventolin HFA) 2 puff inhalation Q6H PRN Shortness Of Breath 09/22/21 [History Last Taken Unknown] diphenhydramine HCl 50 mg capsule 50 mg PO Q6H PRN Allergic Symptoms 09/22/21 [History Last Taken Unknown] dupilumab 300 mg/2 mL subcutaneous syringe (Dupixent) 300 mg subcut .[id number] 09/22/21 [History Last Taken Unknown] erenumab-aooe 70 mg/mL subcutaneous auto-injector (Aimovig Autoinjector) 70 mg subcut QMONTH migrains 09/22/21 [History Last Taken Unknown] escitalopram oxalate 20 mg tablet (Lexapro) 20 mg PO DAILY 09/22/21 [History Last Taken Unknown] fluticasone propionate 50 mcg/actuation nasal spray,suspension 1 spray intranasal DAILY ALLERGIES 09/22/21 [History Last Taken Unknown] omeprazole 40 mg capsule,delayed release 40 mg PO DAILY 09/22/21 [History Last Taken Unknown] tizanidine 4 mg capsule 4 mg PO Q8H PRN Back Pain 09/22/21 [History Last Taken Unknown] propranolol 10 mg tablet 10 mg PO DAILY BP 12/26/21 [History Last Taken Unknown] pregabalin 50 mg capsule 50 mg PO QHS 01/30/23 [History Last Taken Unknown] quetiapine 50 mg tablet,extended release 24 hr 100 mg PO DAILY 01/30/23 [History Last Taken Unknown] sulfamethoxazole 800 mg-trimethoprim 160 mg tablet 1 tab PO BID #28 TABLETS 05/19/23 [Rx Last Taken Unknown] hydrocodone-acetaminophen 5-325mg 5mg-325mg 1 tab PO Q6H PRN PRN Pain 3 days #10 TABLETS 05/26/23 [Rx Last Taken Unknown] promethazine 25 mg rectal suppository (Promethegan) 25 mg RECTAL Q6H PRN PRN Nausea ##6 05/26/23 [Rx Last Taken Unknown] Allergy/AdvReac Type Severity Reaction Status Date / Time amitriptyline Allergy MUSCLE Verified 05/26/23 12:47 SPASMS Bleach (Sodium Hypochlorite) Allergy Hives Verified 05/26/23 12:47 codeine Allergy Hives Verified 05/26/23 12:47 ketorolac [From Toradol] Allergy Itching Verified 05/26/23 12:47 nitrofurantoin Allergy Anaphylaxis Verified 05/26/23 12:47 [From Macrodantin] doxycycline AdvReac Vomiting Verified 05/26/23 12:47 Family History Mother Hypertension Migraine Grandmother CVA (cerebral vascular accident) Grandfather Diabetes Father Myocardial infarction Surgical History History of cystoscopy History of hysterectomy Hx of cholecystectomy S/P laparoscopic surgery Social History household members: significant other Smoking Status: Current every day smoker tobacco type: e-cigarettes alcohol intake: current details: occasionally substance use type: does not use caffeine: Yes what type of physical activity do you participate in: walking frequency: 1-2 times per week seatbelt use: always do you feel safe at home: Yes additional social history: Single ROS ROS ED Constitutional Constitutional ED: Reports fever(s); Denies chills Eyes Eyes: Denies blurry vision or change in vision ENT ENT ED: Denies rhinorrhea or sore throat Cardiovascular Cardiovascular: Denies chest pain or palpitations Respiratory/Chest Respiratory/Chest: Reports dyspnea; Denies cough Gastrointestinal Gastrointestinal: Reports abdominal pain, nausea and vomiting Genitourinary Genitourinary ED: Reports hematuria; Denies dysuria Musculoskeletal Musculoskeletal: Denies back pain or neck pain Integumentary Denies abscess or rash Neurologic Neurologic: Reports headache(s); Denies weakness Allergic/Immunologic Allergic/Immunologic ED: Denies mouth swelling or urticaria EXAM Physical Exam Const Vital Signs: 05/26/23 12:45 05/26/23 13:03 05/26/23 13:06 Temperature 97.3 F L 97.3 F L Temperature Source Temporal Oral Pulse Rate 85 85 Respiratory Rate 18 17 Respiratory Effort Normal Non-Labored Respiratory Pattern Normal Blood Pressure 126/98 H 126/98 H Blood Pressure Mean 107 107 Pulse Ox 100 100 Oxygen Delivery Method Room Air Room Air 05/26/23 15:06 05/26/23 15:06 Temperature 98.1 F Temperature Source Oral Pulse Rate 71 71 Respiratory Rate 17 17 Respiratory Effort Respiratory Pattern Blood Pressure 151/70 H 151/70 H Blood Pressure Mean 97 97 Pulse Ox 100 100 Oxygen Delivery Method Room Air Room Air Positive well nourished, well developed and obese General Appearance ED: well developed and NAD Nutritional Appearance: obese HEENT Reports moist mucous membranes Neck supple and no JVD Resp normal respiratory effort and clear to auscultation bilaterally Cardio regular rate, regular rhythm and no murmurs GI normal to inspection, nondistended, normoactive bowel sounds Palpation: soft and tender epigastric, LUQ and RUQ; Negative for guarding or rebound tenderness present Back/Spine General Back: CVA tenderness right Extremity normal to inspection General Extremety ED: Negative for edema or tenderness General Extremity: Negative for edema Neuro oriented x3, CN's II-XII intact bilaterally and no sensory deficits noted Sensorium / Orientation: alert Motor Exam: strength 5/5 throughout Psych mental status grossly normal Skin no rashes or lesions noted MDM MDM MDM Narrative Medical decision making narrative: Torrential diagnosis includes urinary tract infection, ureteral calculus, cholelithiasis, cholecystitis, peptic ulcer disease, duodenal ulcer, pancreatitis, gastroenteritis. CT scan of the abdomen pelvis will be obtained to assess for ureteral calculus and cholecystitis. CBC will be obtained to assess for leukocytosis and anemia. Comprehensive metabolic profile will be obtained to assess for hepatic function, renal function, and electrolyte abnormality. Lipase will be obtained to assess for pancreatitis. Urinalysis will be obtained to assess for urinary tract infection. Lab Data Attestation: I reviewed the patient's lab results. Lab results narrative: CBC was reviewed and was within normal limits. Comprehensive metabolic profile was reviewed and was within normal limits with the exception of a slightly elevated alkaline phosphatase of 123. Lipase was reviewed and was normal. Urinalysis was reviewed. There is no evidence of urinary tract infection or hematuria. Labs: Laboratory Results - last 24 hr 05/26/23 05/26/23 14:25 14:26 WBC 8.1 RBC 4.83 Hgb 14.4 Hct 42.9 MCV 88.8 MCH 29.8 MCHC 33.6 RDW Std Deviation 43.8 RDW Coeff of Romario 13.4 Plt Count 235 MPV 11.8 Immature Gran % (Auto) 0.200 Neut % (Auto) 68.9 Lymph % (Auto) 25.6 [place] % (Auto) 4.7 Eos % (Auto) 0.4 Baso % (Auto) 0.2 Absolute Neuts (auto) 5.6 Absolute Lymphs (auto) 2.07 Nucleated RBC % 0 Sodium 137 Potassium 4.7 Chloride 107 Carbon Dioxide 23.0 Anion Gap 7 BUN 12 Creatinine 0.96 Estim Creat Clear Calc 69.59 Est GFR (MDRD) Af Amer 86 Est GFR (MDRD) Non-Af 71 BUN/Creatinine Ratio 12.4 Glucose 106 Calcium 10.3 H Total Bilirubin 0.40 AST 42 H ALT 44 Alkaline Phosphatase 123 H Total Protein 9.0 H Albumin 4.6 Globulin 4.4 H Albumin/Globulin Ratio 1.0 Lipase 65 Urine Color Yellow Urine Clarity Clear Urine pH 7.0 Ur Specific [place] 1.005 Urine Protein Negative Urine Glucose (UA) Normal Urine Ketones Negative Urine Occult Blood 10 H Urine Nitrite Negative Urine Bilirubin Negative Urine Urobilinogen Normal Ur Leukocyte Esterase Negative Urine RBC 0 SEEN Urine WBC 0-5 SEEN Ur Squamous Epith Cells 0-5 SEEN Urine Bacteria 0 SEEN Urine Mucus 0 SEEN Radiography Diagnostic Testing: CT scan of the abdomen pelvis was obtained. There is no evidence of ureteral calculus or hydronephrosis. There are no renal calculi noted. There is decreased attenuation of the liver consistent with steatosis. This was interpreted by the radiologist was also independently reviewed by myself. Treatment and Re-Evaluation :: Patient was given IV fluids, morphine, and Zofran. Patient had minimal relief of her pain with this. Patient was given a repeat dose of morphine. Patient was still nauseated on reevaluation. Patient was given a dose of Phenergan. Patient was advised of her findings. Patient was instructed to follow-up with her primary care physician in 5 to 7 days. Patient was given a prescription for a short course of [place] and a prescription for Phenergan suppositories. Patient was instructed to return if worse in any way. Patient understood and was agreeable with the plan. All questions were answered. Discharge Plan Triage Chief Complaint: General Illness ED Provider: Gage Joya Dx/Rx/DC Orders Clinical Impression: Acute right flank pain, Nausea and vomiting Instructions: ED Flank Pain, Uncertain Cause, ED Vomiting (Adult) Prescriptions: New promethazine [Promethegan] 25 mg suppository 25 mg RECTAL Q6H PRN PRN (Reason: Nausea) Qty: 6 0RF Changed hydrocodone-acetaminophen 5-325 mg tablet 1 tab PO Q6H PRN PRN (Reason: Pain) 3 Days Qty: 10 0RF No Action propranolol 10 mg tablet 10 mg PO DAILY diphenhydramine HCl 50 mg Capsule 50 mg PO Q6H PRN (Reason: Allergic Symptoms) omeprazole 40 mg Capsule,Delayed Release(Dr/Ec) 40 mg PO DAILY albuterol sulfate [Ventolin HFA] 90 mcg/actuation Hfa Aerosol Inhaler 2 puff INHALATION Q6H PRN (Reason: Shortness Of Breath) fluticasone propionate 50 mcg/actuation [place],Suspension 1 spray INTRANASAL DAILY escitalopram oxalate [Lexapro] 20 mg Tablet 20 mg PO DAILY tizanidine 4 mg Capsule 4 mg PO Q8H PRN (Reason: Back Pain) acidophilus-pectin, citrus 100 million cell-10 mg Capsule 1 cap PO DAILY Dupixent Syringe 300 mg/2 mL Syringe 300 mg SUBCUT .[id number] Rx Instructions: EVERY 2 WEEKS Aimovig Autoinjector 70 mg/mL Auto-Injector 70 mg SUBCUT QMONTH quetiapine 50 mg tablet extended release 24 hr 100 mg PO DAILY pregabalin 50 mg capsule 50 mg PO QHS sulfamethoxazole-trimethoprim [sulfamethoxazole-trimethoprim] 800-160 mg tablet 1 tab PO BID Qty: 28 0RF Primary Care Provider: Elizabeth Spear NP Referrals: Elizabeth Spear NP, [employer] [Primary Care Provider] - 3-5 Days Disposition Disposition: Home, Self Care
--- NOTE | 2023-05-26 15:42 | CT_ITS ---
STUDY: CT Abdomen And Pelvis W/O Contrast Injection 05/26/2023 5:04 PM REASON FOR EXAM: Female, 32 years old. ABDOMINAL PAIN Flank pain TECHNIQUE: Transaxial images were obtained without oral contrast, and without intravenous contrast. Individualized dose optimization techniques were used for this CT. COMPARISON: 4.8 FINDINGS: The visualized lung bases are unremarkable. The visualized portions of the heart are within normal limits. There is decreased attenuation of the liver consistent with steatosis. There is non-visualization of the gallbladder, which may be secondary to either contraction or a prior cholecystectomy. Unremarkable spleen. Unremarkable pancreas. Unremarkable bilateral adrenal glands. No acute findings of the right kidney. No acute findings of the left kidney. Unremarkable visualized stomach. Unremarkable small intestine. Unremarkable colon. The appendix is visualized and appears unremarkable. There are no acute findings of the abdominal aorta. Unremarkable inferior vena cava. Subcentimeter mesenteric lymph nodes. Unremarkable urinary bladder. There is absence of the uterus consistent with a prior hysterectomy. There are calcified phleboliths in the pelvis. This makes differentiation with distal ureteral stones difficult. There is an umbilical hernia containing fat. Unremarkable osseous structures. CT/Abdomen/Pelvis without Cont IMPRESSION: (NOT LISTED IN ORDER OF SIGNIFICANCE) Fatty liver. There are no renal stones. There is no hydronephrosis. Other findings as above. Electronically Signed: Nathan Rivera MD at 17:07 EDT ,
[2023-05-26] MEDS: proMETHazine 25 MG/ML Syringe 6.25 MG IM (17:29)
== END 2023-05-26 17:41 | disposition home or self-care (01) ==
PROVIDERS: Emergency Provider Emergency Medicine; PCP Nurse Practitioner Primary Care; Visit Provider Emergency Medicine
DX: R10.9 Unspecified abdominal pain (principal); R11.2 Nausea with vomiting, unspecified; R50.9 Fever, unspecified; I10 Essential (primary) hypertension; E78.00 Pure hypercholesterolemia, unspecified; R06.02 Shortness of breath; F17.290 Nicotine dependence, other tobacco product, uncomplicated; E66.9 Obesity, unspecified; Z79.899 Other long term (current) drug therapy
CPT/HCPCS: 74176; 80053; 81001; 83690; 85025; 96361; 96372; 96374; 96375; 96376; 99284; J7030; A4216; J2405

== ENCOUNTER 2023-05-31 18:11 | Emergency (ER) | payer MEDICAID, SELFPAY ==
[2023-05-31 18:12] VITALS: BP 117/69; PULSE 86; RESP 16; TEMP 35.8; O2SAT 99; BMI 34.9
--- NOTE | 2023-05-31 18:25 | ED.VIS.GI ---
HPI HPI - GI History of Present Illness Chief Complaint: Abd Pain Detail of Chief Complaint: Constipated with suprapubic abdominal pain. Informant: patient and spouse/S.O. Abdominal Pain/Flank Pain Onset: Days Context: Gradual Onset Timing: Continuous Quality: Aching and Cramping Current Severity: Mild Maximum Severity: Moderate Worsened by: Nothing Relieved by: Nothing Nausea/Vomiting/Emesis GI Symptom: Positive for Nausea and Vomiting Onset: Today Severity: Mild Diarrhea/Melena/Hematochezia GI Symptom: Negative for Diarrhea, Melena or Hematochezia Associated Symptoms Associated Symptoms: Negative for Dysuria, Frequency, Hematuria or Urgency Narrative Narrative: 32-year-old female complaining of suprapubic abdominal pain. States her last bowel movement was around Thursday. She was seen yesterday at another emergency department told she had constipation has been using Dulcolax suppositories x2 and enema x1 without any relief. Denies any dysuria. Was seen here on the first had a CAT scan CT flank study which is unremarkable. There were no stones. No significant signs of constipation. She also had a CBC, chemistry and UA which are basically unremarkable. Prior similar symptoms: Yes Recent Illness/Hospitalization: No PFSH PFSH Medical History Alcohol use Anxiety Back pain Bilateral renal stones Bipolar disorder Cardiology follow-up encounter Chronic interstitial cystitis Conversion disorder Depression Easy bruising Endometriosis Environmental and seasonal allergies Fatty liver Fibromyalgia Gastric reflux High cholesterol History of cervical cancer History of echocardiogram History of edema History of renal disease History of stress test Hypertension Kidney stone Left renal stone Leg cramps Marijuana use Migraine Peptic ulcer of stomach Restless legs Smoker Syncope Wears dentures Wears glasses Home Medications albuterol sulfate 90 mcg/actuation aerosol inhaler (Ventolin HFA) 2 puff inhalation Q6H PRN Shortness Of Breath 09/22/21 [History Last Taken Unknown] diphenhydramine HCl 50 mg capsule 50 mg PO Q6H PRN Allergic Symptoms 09/22/21 [History Last Taken Unknown] dupilumab 300 mg/2 mL subcutaneous syringe (Dupixent) 300 mg subcut .[id number] 09/22/21 [History Last Taken Unknown] erenumab-aooe 70 mg/mL subcutaneous auto-injector (Aimovig Autoinjector) 70 mg subcut QMONTH migrains 09/22/21 [History Last Taken Unknown] escitalopram oxalate 20 mg tablet (Lexapro) 20 mg PO DAILY 09/22/21 [History Last Taken Unknown] fluticasone propionate 50 mcg/actuation nasal spray,suspension 1 spray intranasal DAILY ALLERGIES 09/22/21 [History Last Taken Unknown] omeprazole 40 mg capsule,delayed release 40 mg PO DAILY 09/22/21 [History Last Taken Unknown] tizanidine 4 mg capsule 4 mg PO Q8H PRN Back Pain 09/22/21 [History Last Taken Unknown] propranolol 10 mg tablet 10 mg PO DAILY BP 12/26/21 [History Last Taken Unknown] pregabalin 50 mg capsule 50 mg PO QHS 01/30/23 [History Last Taken Unknown] quetiapine 50 mg tablet,extended release 24 hr 100 mg PO DAILY 01/30/23 [History Last Taken Unknown] promethazine 25 mg rectal suppository (Promethegan) 25 mg RECTAL Q6H PRN PRN Nausea ##6 05/26/23 [Rx Last Taken Unknown] Allergy/AdvReac Type Severity Reaction Status Date / Time amitriptyline Allergy MUSCLE Verified 05/31/23 18:14 SPASMS Bleach (Sodium Hypochlorite) Allergy Hives Verified 05/31/23 18:14 codeine Allergy Hives Verified 05/31/23 18:14 ketorolac [From Toradol] Allergy Itching Verified 05/31/23 18:14 nitrofurantoin Allergy Anaphylaxis Verified 05/31/23 18:14 [From Macrodantin] doxycycline AdvReac Vomiting Verified 05/31/23 18:14 Family History Mother Hypertension Migraine Grandmother CVA (cerebral vascular accident) Grandfather Diabetes Father Myocardial infarction Surgical History History of cystoscopy History of hysterectomy Hx of cholecystectomy S/P laparoscopic surgery Social History household members: significant other Smoking Status: Current every day smoker tobacco type: e-cigarettes alcohol intake: current details: occasionally substance use type: does not use caffeine: Yes what type of physical activity do you participate in: walking frequency: 1-2 times per week seatbelt use: always do you feel safe at home: Yes additional social history: Single ROS ROS ED ROS Narrative Constipation. Abdominal pain. Nausea vomiting. Review of Systems ROS Unobtainable: Denies due to encephalopathy Constitutional Constitutional ED: Denies chills ENT ENT ED: Denies ear pain Cardiovascular Cardiovascular: Denies chest pain Respiratory/Chest Respiratory/Chest: Denies cough Gastrointestinal Gastrointestinal: Reports abdominal pain, constipation, nausea and vomiting; Denies diarrhea or melena Genitourinary Genitourinary ED: Denies dysuria Integumentary Denies abscess Neurologic Neurologic: Denies headache(s) Psychiatric Psychiatric: Denies anxiety Endocrine Endocrinology: Denies polydipsia Hematologic/Lymphatic Hematologic/Lymphatic: Denies easy bleeding Allergic/Immunologic Allergic/Immunologic ED: Denies mouth swelling EXAM Physical Exam Narrative Exam Narrative: Appearing 32-year-old female no acute distress. Vital signs stable afebrile. HEENT exam unremarkable. Moist mucous membranes. Neck nontender no lymphadenopathy. Lungs clear to auscultation bilaterally. Heart regular rhythm rate about 85 no murmur. Chest wall nontender. Abdomen soft. Nondistended normal bowel sounds no peritoneal signs. No signs of obstruction. Soft. Moving all 4 extremities. Nontender no edema. Back nontender. Neurologically she is awake and alert with no focal motor deficits. Patient has a very benign exam. Const Vital Signs: 05/31/23 18:12 Temperature 96.5 F L Temperature Source Temporal Pulse Rate 86 Respiratory Rate 16 Blood Pressure 117/69 Blood Pressure Mean 85 Pulse Ox 99 Oxygen Delivery Method Room Air Positive well nourished, well developed and obese; Negative for cachectic, contractures or unkempt General Appearance ED: well developed and NAD; Negative for unkempt, cachectic, contractures or pallor Nutritional Appearance: obese; Negative for cachectic HEENT Reports moist mucous membranes; Denies dry mucous membranes normocephalic and atraumatic; Negative for trauma or tenderness Mouth ED: No dry mucous membranes Mouth: No dry mucous membranes Eyes PERRL and EOMs intact bilaterally General Eye ED: Negative for pale conjunctiva or scleral icterus Neck no lymphadenopathy, supple and no JVD General: Negative for tenderness Carotids: Negative for other Lymph Lymphatic: Negative for other Resp normal respiratory effort and clear to auscultation bilaterally Effort and Inspection: Negative for respiratory distress Auscultation: Negative for rales, rhonchi or wheezes Cardio regular rate, regular rhythm, S1 normal heart sound, S2 normal heart sound and no murmurs Rate: Negative for bradycardia or tachycardic Rhythm: Negative for abnormal rhythm GI non-tender, non-distended and no masses Inspection: Negative for abdominal distention Auscultation: normoactive bowel sounds Palpation: soft; Negative for tender, guarding, rigid, hernia, mass, pulsatile mass or rebound tenderness present Back/Spine no CVA tenderness General Back: Negative for CVA tenderness Cervical Spine: Negative for cervical spine tenderness Thoracic Spine / Upper Back: Negative for thoracic spinal tenderness Lumbar Spine / Lower Back: Negative for lumbar spinal tenderness Coccyx: Negative for other Extremity full ROM General Extremety ED: Negative for edema or tenderness General Extremity: Negative for edema Neuro CN's II-XII intact bilaterally and moves all extremities Sensorium / Orientation: alert, oriented to person and oriented to place; Negative for oriented to time, orientation impaired, confused or lethargic Motor Exam: strength 5/5 throughout Psych mental status grossly normal and thought process normal Appearance: Negative for unkempt Attitude: No agitated Mood & Affect: anxious; Negative for depressed or tearful Skin no wounds General Skin Exam: Negative for jaundice or pallor Lesions: no lesions Rashes: no rashes Trauma: Negative for abrasion Nails: Negative for discolored MDM MDM MDM Narrative Medical decision making narrative: 32-year-old female history of prior cholecystectomy and hysterectomy with ovaries removed also. Complaining constipation suprapubic abdominal pain. She was in the emergency department on [address] flank study done which was unremarkable as was her blood work and urinalysis. She was seen at [facility] emergency department yesterday. Was told she was constipated. Patient a KUB will be obtained. Urinalysis. She will be given Zofran for nausea. Patient was requesting something for pain. I offered her Tylenol. She wanted pain medications. I tried to explain to her that that would could make her constipation worse. I reviewed her old records she has had multiple CAT scans abdomen pelvis done over the last several years typically either showing constipation or small kidney stones. No other acute abnormalities. Patient is drinking GoLytely and will be discharged home. History & Record Review Discussion w/independent historian: Patient and Significant other Lab Data Attestation: I reviewed the patient's lab results. Lab results narrative: Urinalysis shows no acute abnormality. No white or red cells. No bacteria nor nitrates. KUB is consistent with constipation with stool throughout the colon but no signs of obstruction. Labs: Laboratory Results - last 24 hr 05/31/23 18:30 Urine Color Yellow Urine Clarity Clear Urine pH 7.0 Ur Specific [place] 1.010 Urine Protein Negative Urine Glucose (UA) Normal Urine Ketones Negative Urine Occult Blood 10 H Urine Nitrite Negative Urine Bilirubin Negative Urine Urobilinogen Normal Ur Leukocyte Esterase Negative Urine RBC 0 SEEN Urine WBC 0-5 SEEN Ur Squamous Epith Cells 0-5 SEEN Urine Bacteria 0 SEEN Urine Mucus 0 SEEN Radiography Diagnostic Testing: Clinical Impression(s) from Imaging Studies KUB X-Ray 05/31/23 18:35 IMPRESSION: Mild colonic fecal retention. Electronically Signed: Rodrigo Evans DO at 19:07 EDT Reading Location ID and State: [address] [place] [address] Tel [phone], Service support , KUB, single view, interpreted by myself shows she has increased stool throughout the rectum and colon. There is no signs of bowel obstruction. No air-fluid levels. This is consistent with constipation. Also read by the radiologist and agrees. Discharge Plan Triage Chief Complaint: Abd Pain ED Provider: Satya Page Dx/Rx/DC Orders Clinical Impression: Abdominal pain, Constipation Instructions: ED Constipation (Adult) Prescriptions: No Action propranolol 10 mg tablet 10 mg PO DAILY diphenhydramine HCl 50 mg Capsule 50 mg PO Q6H PRN (Reason: Allergic Symptoms) omeprazole 40 mg Capsule,Delayed Release(Dr/Ec) 40 mg PO DAILY albuterol sulfate [Ventolin HFA] 90 mcg/actuation Hfa Aerosol Inhaler 2 puff INHALATION Q6H PRN (Reason: Shortness Of Breath) fluticasone propionate 50 mcg/actuation [place],Suspension 1 spray INTRANASAL DAILY escitalopram oxalate [Lexapro] 20 mg Tablet 20 mg PO DAILY tizanidine 4 mg Capsule 4 mg PO Q8H PRN (Reason: Back Pain) Dupixent Syringe 300 mg/2 mL Syringe 300 mg SUBCUT .[id number] Rx Instructions: EVERY 2 WEEKS Aimovig Autoinjector 70 mg/mL Auto-Injector 70 mg SUBCUT QMONTH quetiapine 50 mg tablet extended release 24 hr 100 mg PO DAILY pregabalin 50 mg capsule 50 mg PO QHS promethazine [Promethegan] 25 mg suppository 25 mg RECTAL Q6H PRN PRN (Reason: Nausea) Qty: 6 0RF Primary Care Provider: Elizabeth Spear NP Referrals: Elizabeth Spear NP, [facility] [Primary Care Provider] - 3-5 Days if not improving Activity Restrictions/Additional Instructions: Drink the GoLytely until you have a bowel movement. Plenty of fluids, fruits, vegetables and fiber. Follow-up with your primary care provider to ensure you are improving. Return if feeling worse. Your urinalysis was unremarkable. Your x-ray was consistent with constipation but no signs of bowel obstruction. Disposition Disposition: Home, Self Care
[2023-05-31 18:35] LABS: Bacteria 0 SEEN /hpf (None Seen); Mucous, Urine 0 SEEN /hpf (<or=2+); Red Blood Cells-Urine 0 SEEN /hpf (0-5)
--- NOTE | 2023-05-31 18:35 | RAD_ITS ---
STUDY: X-RAY - ABDOMEN/PELVIS REASON FOR EXAM: Female, 32 years old. Constipation TECHNIQUE: Frontal views COMPARISON: None. FINDINGS: Normal visualized lung bases. There is an unremarkable bowel gas pattern. Mild colonic fecal retention. There is no demonstrated free abdominal air. The visualized liver, spleen and kidneys are grossly normal in size and morphology. Normal soft tissue structures. Normal visualized osseous structures. RAD/Abdomen Single View IMPRESSION: Mild colonic fecal retention. Electronically Signed: Rodrigo Evans DO at 19:07 EDT ,
[2023-05-31] MEDS: Ondansetron ODT 4 MG Tablet PO (18:42)
[2023-05-31] MEDS: Electrolyte Solution/Peg's 4000 ML 1000 ML PO (18:58)
[2023-05-31 19:25] LABS: Color, Urine Yellow (Yellow); Glucose, Dipstick Normal (Normal); Ketone-Dipstick Negative (Negative); Leukocyte Esterase-Dipstick Negative /ul (Negative); Nitrite-Dipstick Negative (Negative); Occult Blood-Urine 10 /ul (Negative); Protein-Dipstick Negative (Negative); Urine Bilirubin Dipstick Negative (Negative); Urine Clarity Clear (Clear); Urine Urobilinogen Normal (Normal)
[2023-05-31 19:33] LABS: Squamous Epithelial Cells - UA 0-5 SEEN /hpf (5-10); White Blood Cells 0-5 SEEN /hpf (0-5)
== END 2023-05-31 19:53 | disposition home or self-care (01) ==
PROVIDERS: Emergency Provider Emergency Medicine; PCP Nurse Practitioner Primary Care; Visit Provider Emergency Medicine
DX: K59.00 Constipation, unspecified (principal); R10.9 Unspecified abdominal pain; R11.2 Nausea with vomiting, unspecified; I10 Essential (primary) hypertension; E78.00 Pure hypercholesterolemia, unspecified; F17.290 Nicotine dependence, other tobacco product, uncomplicated; Z79.899 Other long term (current) drug therapy
CPT/HCPCS: 74018; 81001; 99281; 99283

== ENCOUNTER 2023-07-28 20:10 | Emergency (ER) | payer MEDICAID, SELFPAY ==
[2023-07-28 20:12] VITALS: BP 155/101; PULSE 97; RESP 15; TEMP 36.3; O2SAT 98; BMI 35.3
--- NOTE | 2023-07-28 20:30 | EKG12_ITS ---
Test Reason : CP Blood Pressure : / mmHG Vent. Rate : 082 BPM Atrial Rate : 082 BPM P-R Int : 132 ms QRS Dur : 072 ms QT Int : 336 ms P-R-T Axes : 028 016 -04 degrees QTc Int : 392 ms Normal sinus rhythm Nonspecific ST and T wave abnormality Abnormal ECG When compared with ECG of 06-JUL-2022 10:32, No significant change was found Confirmed by ELVIE SHARP, LEROY ([id number]), rigger apprentice RAYMOND RM ([id number]) on 08/10/2023 1:53:48 PM Referred By: PL Confirmed By:LEROY BERMEO MD
[2023-07-28 21:06] LABS: Bacteria 0 SEEN /hpf (None Seen); Mucous, Urine 0 SEEN /hpf (<or=2+); Red Blood Cells-Urine 0 SEEN /hpf (0-5)
[2023-07-28 21:10] LABS: Color, Urine Yellow (Yellow); Glucose, Dipstick Normal (Normal); Ketone-Dipstick Negative (Negative); Leukocyte Esterase-Dipstick Negative /ul (Negative); Nitrite-Dipstick Negative (Negative); Occult Blood-Urine 10 /ul (Negative); Protein-Dipstick Negative (Negative); Urine Bilirubin Dipstick Negative (Negative); Urine Clarity Clear (Clear); Urine Urobilinogen Normal (Normal)
[2023-07-28 21:13] LABS: Absolute Lymphocyte Count 2.15 X10^3/uL (0.83-4.51); Absolute Neutrophil Count 5.6 X10^3/uL (2.0-7.7); Basophil# 0.02 X10^3/uL; Basophil% 0.2 % (0-1); Eosinophil# 0.07 X10^3/uL; Eosinophils% 0.8 % (0-5); Hematocrit 36.7 % (37-47); Hemoglobin 12.3 g/dL (12.0-15.0); Lymphocyte # 2.15 X10^3/ul (0.83-4.51); Lymphocyte % 25.9 % (19-41); Mean Corp Hgb Conc 33.5 g/dL (32-36); Mean Corpuscular Hgb 30.3 pg (27.0-32.0); Mean Corpuscular Volume 90.4 fL (81-99); Mean Platelet Vol. 11.3 fl (6.2-12.0); Monocyte# 0.41 X10^3/uL; Monocyte% 4.9 % (0-10); NRBC Flagged by Analyzer 0 % (0-5); Neutrophil # 5.61 X10^3/uL (2.7-7.7); Neutrophil % 67.8 % (47-70); Platelet Count 227 K/mm3 (150-450); RBC Distribution Width CV 13.3 % (11.6-14.6); RBC Distribution Width SD 43.9 fl (35.1-43.9); Red Blood Count 4.06 M/mm3 (4.2-5.4); White Blood Count 8.3 K/mm3 (4.4-11.0)
[2023-07-28 21:21] LABS: Squamous Epithelial Cells - UA 0-5 SEEN /hpf (5-10); White Blood Cells 0-5 SEEN /hpf (0-5)
--- NOTE | 2023-07-28 21:25 | RAD_ITS ---
STUDY: X-RAY CHEST REASON FOR EXAM: Female, 33 years old. Chest pain, shortness of breath TECHNIQUE: Frontal and lateral views of the chest. COMPARISON: 07/06/2022. FINDINGS: The lungs are clear and expanded. There is no demonstrated pleural abnormality. Normal size heart. Normal mediastinum and ever. Normal visualized pulmonary arteries. Normal visualized aortic arch and descending thoracic aorta. Normal visualized thoracic spine. Normal visualized ribs, clavicles, and shoulders. There is no demonstrated abnormality of the visualized soft tissue structures of the upper abdomen. RAD/Chest PA and Lateral IMPRESSION: Normal x-ray examination of the chest. Electronically Signed: José Miguel Napoles MD at 21:56 EDT ,
[2023-07-28 21:30] LABS: Anion Gap 7 (5-15); BUN 14 mg/dL (7-18); BUN/Creat Ratio 13.9 RATIO (10-20); Calcium,Total 9.2 mg/dL (8.5-10.1); Chloride 110 mmol/L (98-107); Creatinine, Serum 1.01 mg/dL (0.55-1.02); EST Glomerular Filtration Rate 67 mL/min (>60); Est Glom Filt Rate - Afr Amer 81 mL/min (>60); Estimated Creatinine Clearance 65.54 ml/min; Glucose 114 mg/dL (74-106); Potassium 3.5 mmol/L (3.5-5.1); Sodium Level 139 mmol/L (136-145); Troponin-I HS 52 pg/mL (3.0-54.0)
--- NOTE | 2023-07-28 21:46 | EX.ED.DYSGE1 ---
HPI History of Present Illness Chief Complaint: Other, Pain/Inj Detail of Chief Complaint: Patient has numerous complaints and pain in numerous places Informant: patient Onset/Context/Timing Onset: Days (First episode occurred this past weekend on Thursday, July 25.) Context: Sudden Onset Timing: Continuous (Today's chest pain has been continuous since this morning) and Intermittent (Pain that occurred on Thursday and Thursday was intermittent and lasted hours) Current Severity: Severe Maximum Severity: Severe Worsened by: Nothing specific Relieved by: Nothing Associated Symptoms Associated Symptoms: No radiation, diaphoresis, vomiting Narrative Narrative: Patient is a 33-year-old female with history of renal calculus, sciatica, pelvic pain who is status post hysterectomy and presents with numerous symptoms and complaints. She states on Thursday at rest she developed sharp chest pain without radiation. There is no shortness of breath, nausea or vomiting. She denies headache, visual, ocular auditory symptoms. Chest pain that awoke her radiates to her left arm described as tingling sensation. The chest pain is described as sharp. There are no precipitating, alleviating or exacerbating factors. There is no history of PE or DVT. Patient denies leg pain, swelling discoloration. She denies black or maroon-colored stool. She denies intolerance to greasy or fried foods. According to significant other she does have history of kidney disease. Prior similar symptoms: Yes Recent Illness/Hospitalization: No PFSH PFSH Medical History Alcohol use Anxiety Back pain Bilateral renal stones Bipolar disorder Cardiology follow-up encounter Chronic interstitial cystitis Conversion disorder Depression Easy bruising Endometriosis Environmental and seasonal allergies Fatty liver Fibromyalgia Gastric reflux High cholesterol History of cervical cancer History of echocardiogram History of edema History of renal disease History of stress test Hypertension Kidney stone Left renal stone Leg cramps Marijuana use Migraine Peptic ulcer of stomach Restless legs Smoker Syncope Wears dentures Wears glasses Home Medications albuterol sulfate 90 mcg/actuation aerosol inhaler (Ventolin HFA) 2 puff inhalation Q6H PRN Shortness Of Breath 09/22/21 [History Last Taken Unknown] diphenhydramine HCl 50 mg capsule 50 mg PO Q6H PRN Allergic Symptoms 09/22/21 [History Last Taken Unknown] dupilumab 300 mg/2 mL subcutaneous syringe (DupixMelophone) 300 mg subcut .[id number] 09/22/21 [History Last Taken Unknown] erenumab-aooe 70 mg/mL subcutaneous auto-injector (Aimovig Autoinjector) 70 mg subcut QMONTH migrains 09/22/21 [History Last Taken Unknown] escitalopram oxalate 20 mg tablet (Lexapro) 20 mg PO DAILY 09/22/21 [History Last Taken Unknown] fluticasone propionate 50 mcg/actuation nasal spray,suspension 1 spray intranasal DAILY ALLERGIES 09/22/21 [History Last Taken Unknown] omeprazole 40 mg capsule,delayed release 40 mg PO DAILY 09/22/21 [History Last Taken Unknown] tizanidine 4 mg capsule 4 mg PO Q8H PRN Back Pain 09/22/21 [History Last Taken Unknown] propranolol 10 mg tablet 10 mg PO DAILY BP 12/26/21 [History Last Taken Unknown] pregabalin 50 mg capsule 50 mg PO QHS 01/30/23 [History Last Taken Unknown] quetiapine 50 mg tablet,extended release 24 hr 100 mg PO DAILY 01/30/23 [History Last Taken Unknown] promethazine 25 mg rectal suppository (Promethegan) 25 mg RECTAL Q6H PRN PRN Nausea ##6 05/26/23 [Rx Last Taken Unknown] Allergy/AdvReac Type Severity Reaction Status Date / Time amitriptyline Allergy MUSCLE Verified 07/28/23 20:17 SPASMS Bleach (Sodium Hypochlorite) Allergy Hives Verified 07/28/23 20:17 codeine Allergy Hives Verified 07/28/23 20:17 ketorolac [From Toradol] Allergy Itching Verified 07/28/23 20:17 nitrofurantoin Allergy Anaphylaxis Verified 07/28/23 20:17 [From Macrodantin] doxycycline AdvReac Vomiting Verified 07/28/23 20:17 Family History Mother Hypertension Migraine Grandmother CVA (cerebral vascular accident) Grandfather Diabetes Father Myocardial infarction Surgical History History of cystoscopy History of hysterectomy Hx of cholecystectomy S/P laparoscopic surgery Social History household members: significant other Smoking Status: Current every day smoker tobacco type: e-cigarettes alcohol intake: current details: occasionally substance use type: does not use caffeine: Yes what type of physical activity do you participate in: walking frequency: 1-2 times per week seatbelt use: always do you feel safe at home: Yes additional social history: Single ROS ROS ED Constitutional Constitutional ED: Denies chills, fever(s), subjective, sweats or weight loss Eyes Eyes: Denies blurry vision, change in vision or diplopia ENT ENT ED: Denies ear pain, rhinorrhea or sore throat Cardiovascular Cardiovascular: Reports chest pain; Denies orthopnea, palpitations, paroxysmal nocturnal dyspnea or racing heartbeat Respiratory/Chest Respiratory/Chest: Reports dyspnea; Denies cough, dyspnea on exertion, orthopnea, paroxysmal nocturnal dyspnea or sputum Gastrointestinal Gastrointestinal: Reports nausea; Denies abdominal pain, constipation, melena or vomiting Genitourinary Genitourinary ED: Reports urinary frequency; Denies dysuria or hematuria Musculoskeletal Musculoskeletal: Reports back pain and other Details: Patient also complains of low back pain. Pain is worse with movement. ; Denies arthralgias, myalgias or neck pain Neurologic Neurologic: Denies headache(s), paresthesias or weakness Psychiatric Psychiatric: Reports depression Hematologic/Lymphatic Hematologic/Lymphatic: Reports systems reviewed and no addt'l complaints, except as documented EXAM Physical Exam Const Vital Signs: 07/28/23 20:12 07/28/23 21:50 Temperature 97.4 F L Temperature Source Temporal Pulse Rate 97 77 Respiratory Rate 15 14 Blood Pressure 155/101 H 137/87 H Blood Pressure Mean 119 103 Pulse Ox 98 98 Oxygen Delivery Method Room Air Room Air Positive well nourished, well developed and obese General Appearance ED: well developed and NAD; Negative for cyanotic, diaphoretic or pallor Nutritional Appearance: obese HEENT Reports moist mucous membranes HEENT Narrative: Head is normocephalic and atraumatic. Eyes PERRL and EOMs intact bilaterally General Eye ED: Negative for pale conjunctiva or scleral icterus Neck no lymphadenopathy, supple and no JVD Chest Wall inspection of chest normal and palpation of chest normal Resp normal respiratory effort and clear to auscultation bilaterally Cardio regular rate, regular rhythm, S1 normal heart sound, S2 normal heart sound and no murmurs GI normal to inspection, nondistended, normoactive bowel sounds, non-tender, non-distended and no masses; Negative for hepatosplenomegaly Back/Spine no CVA tenderness Cervical Spine: Negative for cervical spine tenderness Lumbar Spine / Lower Back: lumbar spinal tenderness Extremity normal to inspection Extremity Narrative: There is no asymmetry, swelling, discoloration, leg vein distention, palpable cords or tenderness along the distribution of the deep venous system. General Extremety ED: Negative for edema or tenderness General Extremity: Negative for edema Neuro oriented x3, CN's II-XII intact bilaterally and no sensory deficits noted Sensorium / Orientation: alert Motor Exam: strength 5/5 throughout Psych Mood & Affect: depressed Skin no rashes or lesions noted, no wounds and skin turgor normal General Skin Exam: Negative for jaundice or pallor MDM MDM MDM Narrative Medical decision making narrative: Patient with numerous complaints and symptoms. Need to evaluate for cardiac versus noncardiac etiology of pain. Need to rule out urinary tract infection. Back pain is most likely musculoskeletal. Prior records were reviewed History & Record Review Additional record(s) reviewed:: Prior outpatient record, Prior ED visit (Pyelonephritis, fibromyalgia, flank pain) and Prior labs Lab Data Attestation: I reviewed the patient's lab results. Lab results narrative: CBC is unremarkable. Basic metabolic panel is unremarkable. Chloride slightly elevated 110 UA is negative. Troponin with hours of pain that started Thursday is normal. Labs: Laboratory Results - last 24 hr 07/28/23 20:50 WBC 8.3 RBC 4.06 L Hgb 12.3 Hct 36.7 L MCV 90.4 MCH 30.3 MCHC 33.5 RDW Std Deviation 43.9 RDW Coeff of Romario 13.3 Plt Count 227 MPV 11.3 Immature Gran % (Auto) 0.400 Neut % (Auto) 67.8 Lymph % (Auto) 25.9 [place] % (Auto) 4.9 Eos % (Auto) 0.8 Baso % (Auto) 0.2 Absolute Neuts (auto) 5.6 Absolute Lymphs (auto) 2.15 Nucleated RBC % 0 Sodium 139 Potassium 3.5 Chloride 110 H Carbon Dioxide 22.0 Anion Gap 7 BUN 14 Creatinine 1.01 Estim Creat Clear Calc 65.54 Est GFR (MDRD) Af Amer 81 Est GFR (MDRD) Non-Af 67 BUN/Creatinine Ratio 13.9 Glucose 114 H Calcium 9.2 Troponin I High Sens 52 Urine Color Yellow Urine Clarity Clear Urine pH 7.0 Ur Specific [place] 1.010 Urine Protein Negative Urine Glucose (UA) Normal Urine Ketones Negative Urine Occult Blood 10 H Urine Nitrite Negative Urine Bilirubin Negative Urine Urobilinogen Normal Ur Leukocyte Esterase Negative Urine RBC 0 SEEN Urine WBC 0-5 SEEN Ur Squamous Epith Cells 0-5 SEEN Urine Bacteria 0 SEEN Urine Mucus 0 SEEN Radiography Chest X-Ray - ED: 2 View and Read by ED Physician (Normal cardiac silhouette and size. Lung parenchyma is unremarkable with minimal chronic changes. Perihilar regions normal. Osseous structures are normal) EKG Initial EKG: Attestation: I personally reviewed and interpreted this EKG as follows: Interpretation: Sinus Rhythm (Rate is 83. [place] interval is 132 ms per cures duration 72 ms for QT duration 236 ms. [place] is normal. There is a flipped T wave in lead III which is a normal variant. The EKG in my opinion is normal. The flipped T wave in lead III is a normal variant.) Discharge Plan Triage Chief Complaint: Other, Pain/Inj ED Provider: Rayray Irving Dx/Rx/DC Orders Clinical Impression: Low back pain, Symptoms of urinary tract infection, Non-cardiac chest pain Instructions: ED Chest Pain, Noncardiac, ED Back Pain (Acute or Chronic) Prescriptions: No Action propranolol 10 mg tablet 10 mg PO DAILY diphenhydramine HCl 50 mg Capsule 50 mg PO Q6H PRN (Reason: Allergic Symptoms) omeprazole 40 mg Capsule,Delayed Release(Dr/Ec) 40 mg PO DAILY albuterol sulfate [Ventolin HFA] 90 mcg/actuation Hfa Aerosol Inhaler 2 puff INHALATION Q6H PRN (Reason: Shortness Of Breath) fluticasone propionate 50 mcg/actuation [place],Suspension 1 spray INTRANASAL DAILY escitalopram oxalate [Lexapro] 20 mg Tablet 20 mg PO DAILY tizanidine 4 mg Capsule 4 mg PO Q8H PRN (Reason: Back Pain) Dupixent Syringe 300 mg/2 mL Syringe 300 mg SUBCUT .[id number] Rx Instructions: EVERY 2 WEEKS Aimovig Autoinjector 70 mg/mL Auto-Injector 70 mg SUBCUT QMONTH quetiapine 50 mg tablet extended release 24 hr 100 mg PO DAILY pregabalin 50 mg capsule 50 mg PO QHS promethazine [Promethegan] 25 mg suppository 25 mg RECTAL Q6H PRN PRN (Reason: Nausea) Qty: 6 0RF Primary Care Provider: Elizabeth Spear NP Referrals: Elizabeth Spear NP, [facility] [Primary Care Provider] - As Needed Disposition Disposition: Home, Self Care
[2023-07-28] MEDS: Morphine 2 MG/ML Syringe IV (21:47)
[2023-07-28 21:50] VITALS: BP 137/87; PULSE 77; RESP 14; O2SAT 98
[2023-07-28 22:12] VITALS: BP 126/60; PULSE 75; RESP 16; O2SAT 98
== END 2023-07-28 22:13 | disposition home or self-care (01) ==
PROVIDERS: Emergency Provider Emergency Medicine; PCP Nurse Practitioner Primary Care; Visit Provider Emergency Medicine
DX: M54.50 Low back pain, unspecified (principal); N39.0 Urinary tract infection, site not specified; R07.89 Other chest pain; F17.290 Nicotine dependence, other tobacco product, uncomplicated; E66.9 Obesity, unspecified
CPT/HCPCS: 71046; 80048; 81001; 84484; 85025; 93005; 96374; 99283; A4216

== ENCOUNTER 2023-07-30 19:00 | Emergency (ER) | payer MEDICAID, SELFPAY ==
[2023-07-30 19:01] VITALS: BP 138/88; PULSE 86; RESP 18; TEMP 36.3; O2SAT 97; BMI 35.4
[2023-07-30 19:29] LABS: Bacteria 0 SEEN /hpf (None Seen); Mucous, Urine 0 SEEN /hpf (<or=2+); Red Blood Cells-Urine 0 SEEN /hpf (0-5)
[2023-07-30 19:46] LABS: Color, Urine Yellow (Yellow); Glucose, Dipstick Normal (Normal); Ketone-Dipstick Negative (Negative); Leukocyte Esterase-Dipstick Negative /ul (Negative); Nitrite-Dipstick Negative (Negative); Occult Blood-Urine 10 /ul (Negative); Protein-Dipstick Negative (Negative); Urine Bilirubin Dipstick Negative (Negative); Urine Clarity Clear (Clear); Urine Urobilinogen Normal (Normal); Urine pH 6.5 (5.0 - 8.0)
[2023-07-30 20:18] LABS: Squamous Epithelial Cells - UA 5-10 SEEN /hpf (5-10); White Blood Cells 0-5 SEEN /hpf (0-5)
[2023-07-30 20:27] LABS: Internal QC Validated? YES +Cl - CLEAR BKGD
--- NOTE | 2023-07-30 20:41 | CT_ITS ---
STUDY: CT ABDOMEN AND PELVIS WITHOUT CONTRAST REASON FOR EXAM: Female, 33 years old. Pain RADIATION DOSAGE (If Supplied By Facility): CTDIvol = ( 17.07 ) mGy, DLP = ( 891.52 ) mGycm TECHNIQUE: Transaxial images were obtained from the dome of the diaphragm to the symphysis pubis without oral contrast, and without intravenous contrast. Sagittal and coronal images were reconstructed. Individualized dose optimization techniques were used for this CT. COMPARISON: May 26, 2023 CT abdomen and pelvis FINDINGS: The visualized lung bases are unremarkable. The visualized portions of the heart are within normal limits. There is decreased attenuation of the liver consistent with steatosis. Normal gallbladder and extrahepatic biliary system. Normal spleen. Normal pancreas. Normal bilateral adrenal glands. Normal right kidney. Normal left kidney. Normal visualized stomach. Normal small intestine. Normal colon. The appendix is visualized and appears normal. Normal abdominal aorta. Normal inferior vena cava. Normal retroperitoneum. Normal urinary bladder. Normal abdominal wall. Normal osseous structures. CT/Abdomen/Pelvis without Cont IMPRESSION: No radiodense urolithiasis. Increased stool. No acute disease. Electronically Signed: Jim Sun MD at 22:28 EDT ,
[2023-07-30 20:58] LABS: Pregnancy, Serum, hCG Quali. POSITIVE Negative
[2023-07-30] MEDS: Ondansetron 4 MG/2 ML Vial IV (21:07)
[2023-07-30] MEDS: 0.9% Normal Saline (1000mL) 1,000 ML 1000 ML IV (21:07)
[2023-07-30] MEDS: Morphine 4 MG/ML Syringe IV ×2 (21:07→23:30)
[2023-07-30 21:09] VITALS: BP 136/73; PULSE 78; O2SAT 97
[2023-07-30 21:29] LABS: Absolute Lymphocyte Count 2.57 X10^3/uL (0.83-4.51); Absolute Neutrophil Count 3.2 X10^3/uL (2.0-7.7); Basophil# 0.02 X10^3/uL; Basophil% 0.3 % (0-1); Eosinophil# 0.09 X10^3/uL; Eosinophils% 1.5 % (0-5); Hematocrit 38.7 % (37-47); Hemoglobin 12.6 g/dL (12.0-15.0); Lymphocyte # 2.57 X10^3/ul (0.83-4.51); Lymphocyte % 41.8 % (19-41); Mean Corp Hgb Conc 32.6 g/dL (32-36); Mean Corpuscular Hgb 29.6 pg (27.0-32.0); Mean Corpuscular Volume 91.1 fL (81-99); Mean Platelet Vol. 11.4 fl (6.2-12.0); Monocyte% 4.9 % (0-10); NRBC Flagged by Analyzer 0 % (0-5); Neutrophil # 3.16 X10^3/uL (2.7-7.7); Neutrophil % 51.3 % (47-70); Platelet Count 215 K/mm3 (150-450); RBC Distribution Width CV 13.2 % (11.6-14.6); RBC Distribution Width SD 43.5 fl (35.1-43.9); Red Blood Count 4.25 M/mm3 (4.2-5.4); White Blood Count 6.2 K/mm3 (4.4-11.0)
[2023-07-30 21:32] LABS: hCG Titer Quant., Serum 3 mIU/mL (1-3)
--- NOTE | 2023-07-30 21:43 | EDS_ITS ---
HPI History of Present Illness Chief Complaint: Flank Pain Informant: patient Onset/Context/Timing Onset: Days Context: Gradual Onset Timing: Continuous Quality: Sharp Location: Right flank Worsened by: Movement Relieved by: Nothing Narrative Narrative: Patient presents with right flank pain that has been getting worse over the past few days. Patient states it is gradually gotten worse. Patient states it is constant. Patient states the pain is over the right flank. Patient states it is worse with movement. Patient states nothing seems to help with the pain. Patient states she has a history of kidney stones and kidney infections. Patient also states she has a history of liver problems. Patient denies any fevers but admits to subjective chills. Patient admits to an episode of nausea and vomiting yesterday. Patient admits to some hematuria and urinary frequency. Prior similar symptoms: Yes PFSH PFSH Medical History Alcohol use Anxiety Back pain Bilateral renal stones Bipolar disorder Cardiology follow-up encounter Chronic interstitial cystitis Conversion disorder Depression Easy bruising Endometriosis Environmental and seasonal allergies Fatty liver Fibromyalgia Gastric reflux High cholesterol History of cervical cancer History of echocardiogram History of edema History of renal disease History of stress test Hypertension Kidney stone Left renal stone Leg cramps Marijuana use Migraine Peptic ulcer of stomach Restless legs Smoker Syncope Wears dentures Wears glasses Home Medications albuterol sulfate 90 mcg/actuation aerosol inhaler (Ventolin HFA) 2 puff inhalation Q6H PRN Shortness Of Breath 09/22/21 [History Last Taken Unknown] diphenhydramine HCl 50 mg capsule 50 mg PO Q6H PRN Allergic Symptoms 09/22/21 [History Last Taken Unknown] dupilumab 300 mg/2 mL subcutaneous syringe (Dupixent) 300 mg subcut .[id number] 09/22/21 [History Last Taken Unknown] erenumab-aooe 70 mg/mL subcutaneous auto-injector (Aimovig Autoinjector) 70 mg subcut QMONTH migrains 09/22/21 [History Last Taken Unknown] escitalopram oxalate 20 mg tablet (Lexapro) 20 mg PO DAILY 09/22/21 [History Last Taken Unknown] fluticasone propionate 50 mcg/actuation nasal spray,suspension 1 spray intranasal DAILY ALLERGIES 09/22/21 [History Last Taken Unknown] omeprazole 40 mg capsule,delayed release 40 mg PO DAILY 09/22/21 [History Last Taken Unknown] tizanidine 4 mg capsule 4 mg PO Q8H PRN Back Pain 09/22/21 [History Last Taken Unknown] propranolol 10 mg tablet 10 mg PO DAILY BP 12/26/21 [History Last Taken Unknown] pregabalin 50 mg capsule 50 mg PO QHS 01/30/23 [History Last Taken Unknown] quetiapine 50 mg tablet,extended release 24 hr 100 mg PO DAILY 01/30/23 [History Last Taken Unknown] promethazine 25 mg rectal suppository (Promethegan) 25 mg RECTAL Q6H PRN PRN Nausea ##6 05/26/23 [Rx Last Taken Unknown] hydrocodone-acetaminophen 5-325mg 5mg-325mg 1 tab PO Q6H PRN PRN Pain 3 days #10 TABLETS 07/30/23 [Rx Last Taken Unknown] Allergy/AdvReac Type Severity Reaction Status Date / Time amitriptyline Allergy MUSCLE Verified 07/30/23 19:01 SPASMS Bleach (Sodium Hypochlorite) Allergy Hives Verified 07/30/23 19:01 codeine Allergy Hives Verified 07/30/23 19:01 ketorolac [From Toradol] Allergy Itching Verified 07/30/23 19:01 nitrofurantoin Allergy Anaphylaxis Verified 07/30/23 19:01 [From Macrodantin] doxycycline AdvReac Vomiting Verified 07/30/23 19:01 Family History Mother Hypertension Migraine Grandmother CVA (cerebral vascular accident) Grandfather Diabetes Father Myocardial infarction Surgical History History of cystoscopy History of hysterectomy Hx of cholecystectomy S/P laparoscopic surgery Social History household members: significant other Smoking Status: Current every day smoker tobacco type: e-cigarettes alcohol intake: current details: occasionally substance use type: does not use caffeine: Yes what type of physical activity do you participate in: walking frequency: 1-2 times per week seatbelt use: always do you feel safe at home: Yes additional social history: Single ROS ROS ED Constitutional Constitutional ED: Reports chills; Denies fever(s) Eyes Eyes: Denies blurry vision or change in vision ENT ENT ED: Denies rhinorrhea or sore throat Cardiovascular Cardiovascular: Reports chest pain; Denies palpitations Respiratory/Chest Respiratory/Chest: Denies cough or dyspnea Gastrointestinal Gastrointestinal: Reports abdominal pain, nausea and vomiting Genitourinary Genitourinary ED: Reports hematuria and urinary frequency Musculoskeletal Musculoskeletal: Reports back pain and neck pain Integumentary Denies abscess or rash Neurologic Neurologic: Denies headache(s) or weakness Allergic/Immunologic Allergic/Immunologic ED: Reports urticaria; Denies mouth swelling EXAM Physical Exam Const Vital Signs: 07/30/23 19:01 07/30/23 21:09 Temperature 97.4 F L Temperature Source Temporal Pulse Rate 86 78 Respiratory Rate 18 Blood Pressure 138/88 H 136/73 H Blood Pressure Mean 104 94 Pulse Ox 97 97 Oxygen Delivery Method Room Air Room Air Positive well nourished, well developed and obese General Appearance ED: well developed and NAD Nutritional Appearance: obese HEENT Reports moist mucous membranes Neck supple and no JVD Resp normal respiratory effort and clear to auscultation bilaterally Cardio regular rate and regular rhythm GI normal to inspection, nondistended, normoactive bowel sounds Palpation: soft and tender RLQ and RUQ; Negative for guarding or rebound tenderness present Back/Spine General Back: CVA tenderness right Extremity normal to inspection General Extremety ED: Negative for edema or tenderness General Extremity: Negative for edema Neuro oriented x3, CN's II-XII intact bilaterally and no sensory deficits noted Sensorium / Orientation: alert Motor Exam: strength 5/5 throughout Psych mental status grossly normal Skin no rashes or lesions noted MDM MDM MDM Narrative Medical decision making narrative: Differential diagnosis includes ureteral calculus, pyelonephritis, pancreatitis, peptic ulcer disease, duodenal ulcer, and musculoskeletal strain. Urinalysis will be obtained to assess for urinary tract infection and hematuria. Serum hCG was obtained in triage to assess for . CBC will be obtained to assess for leukocytosis and anemia. Comprehensive metabolic profile will be obtained to assess for hepatic function, renal function, and electrolyte abnormality. CT scan of the abdomen pelvis will be obtained to assess for ureteral calculus, bowel obstruction, and perforation. Lab Data Attestation: I reviewed the patient's lab results. Lab results narrative: Serum hCG was reviewed and was positive. Quantitative hCG was reviewed and was normal at 3. Urinalysis was reviewed. There is no evidence of urinary tract infection or hematuria. CBC was reviewed and was within normal limits. Comprehensive metabolic profile was reviewed and was essentially within normal limits. Labs: Laboratory Results - last 24 hr 07/30/23 07/30/23 07/30/23 19:22 19:30 20:15 WBC RBC Hgb Hct MCV MCH MCHC RDW Std Deviation RDW Coeff of Romario Plt Count MPV Immature Gran % (Auto) Neut % (Auto) Lymph % (Auto) [place] % (Auto) Eos % (Auto) Baso % (Auto) Absolute Neuts (auto) Absolute Lymphs (auto) Nucleated RBC % Sodium Potassium Chloride Carbon Dioxide Anion Gap BUN Creatinine Estim Creat Clear Calc Est GFR (MDRD) Af Amer Est GFR (MDRD) Non-Af BUN/Creatinine Ratio Glucose Calcium Total Bilirubin AST ALT Alkaline Phosphatase Total Protein Albumin Globulin Albumin/Globulin Ratio HCG, Quant 3 Serum , Qual POSITIVE H Urine Color Yellow Urine Clarity Clear Urine pH 6.5 Ur Specific [place] 1.010 Urine Protein Negative Urine Glucose (UA) Normal Urine Ketones Negative Urine Occult Blood 10 H Urine Nitrite Negative Urine Bilirubin Negative Urine Urobilinogen Normal Ur Leukocyte Esterase Negative Urine RBC 0 SEEN Urine WBC 0-5 SEEN Ur Squamous Epith Cells 5-10 SEEN Urine Bacteria 0 SEEN Urine Mucus 0 SEEN 07/30/23 21:03 WBC 6.2 RBC 4.25 Hgb 12.6 Hct 38.7 MCV 91.1 MCH 29.6 MCHC 32.6 RDW Std Deviation 43.5 RDW Coeff of Romario 13.2 Plt Count 215 MPV 11.4 Immature Gran % (Auto) 0.200 Neut % (Auto) 51.3 Lymph % (Auto) 41.8 H [place] % (Auto) 4.9 Eos % (Auto) 1.5 Baso % (Auto) 0.3 Absolute Neuts (auto) 3.2 Absolute Lymphs (auto) 2.57 Nucleated RBC % 0 Sodium 140 Potassium 3.4 L Chloride 110 H Carbon Dioxide 24.0 Anion Gap 6 BUN 11 Creatinine 0.94 Estim Creat Clear Calc 70.42 Est GFR (MDRD) Af Amer 88 Est GFR (MDRD) Non-Af 73 BUN/Creatinine Ratio 11.7 Glucose 89 Calcium 9.4 Total Bilirubin 0.40 AST 23 ALT 38 Alkaline Phosphatase 125 H Total Protein 7.9 Albumin 4.1 Globulin 3.8 Albumin/Globulin Ratio 1.1 HCG, Quant Serum , Qual Urine Color Urine Clarity Urine pH Ur Specific [place] Urine Protein Urine Glucose (UA) Urine Ketones Urine Occult Blood Urine Nitrite Urine Bilirubin Urine Urobilinogen Ur Leukocyte Esterase Urine RBC Urine WBC Ur Squamous Epith Cells Urine Bacteria Urine Mucus Radiography Diagnostic Testing: Clinical Impression(s) from Imaging Studies Abdomen/Pelvis CT 07/30/23 20:41 IMPRESSION: No radiodense urolithiasis. Increased stool. No acute disease. Electronically Signed: Jim Sun MD at 22:28 EDT , Scan of the abdomen pelvis was obtained. There is no acute process noted. There is some increased stool. There is no ureteral calculus noted. This was interpreted by the radiologist and was also independently reviewed by myself. Treatment and Re-Evaluation :: Patient was given IV fluids, morphine, and Zofran. Patient states her pain improved but then started to return. Patient was given a repeat dose of morphine. Patient was advised of her findings. Patient was given a prescription for a short course of [place]. Patient was instructed to follow-up with her primary care physician in 3 to 5 days. Patient was instructed to return if worse in any way. Patient understood and was agreeable with the plan. All questions were answered. Discharge Plan Triage Chief Complaint: Flank Pain ED Provider: Gage Joya Dx/Rx/DC Orders Clinical Impression: Acute right flank pain Instructions: ED Flank Pain, Uncertain Cause Prescriptions: New hydrocodone-acetaminophen [hydrocodone-acetaminophen] 5-325 mg tablet 1 tab PO Q6H PRN PRN (Reason: Pain) 3 Days Qty: 10 0RF No Action propranolol 10 mg tablet 10 mg PO DAILY diphenhydramine HCl 50 mg Capsule 50 mg PO Q6H PRN (Reason: Allergic Symptoms) omeprazole 40 mg Capsule,Delayed Release(Dr/Ec) 40 mg PO DAILY albuterol sulfate [Ventolin HFA] 90 mcg/actuation Hfa Aerosol Inhaler 2 puff INHALATION Q6H PRN (Reason: Shortness Of Breath) fluticasone propionate 50 mcg/actuation [place],Suspension 1 spray INTRANASAL DAILY escitalopram oxalate [Lexapro] 20 mg Tablet 20 mg PO DAILY tizanidine 4 mg Capsule 4 mg PO Q8H PRN (Reason: Back Pain) Dupixent Syringe 300 mg/2 mL Syringe 300 mg SUBCUT .[id number] Rx Instructions: EVERY 2 WEEKS Aimovig Autoinjector 70 mg/mL Auto-Injector 70 mg SUBCUT QMONTH quetiapine 50 mg tablet extended release 24 hr 100 mg PO DAILY pregabalin 50 mg capsule 50 mg PO QHS promethazine [Promethegan] 25 mg suppository 25 mg RECTAL Q6H PRN PRN (Reason: Nausea) Qty: 6 0RF Primary Care Provider: Elizabeth Spear NP Referrals: Elizabeth Spear NP, [facility] [Primary Care Provider] - 3-5 Days Disposition Disposition: Home, Self Care
[2023-07-30 21:48] LABS: ALB/GLOB Ratio 1.1 RATIO (0.9-2.4); AST(SGOT) 23 U/L (15-37); Alanine Aminotransfer ALT/SGPT 38 U/L (13-56); Albumin, Serum 4.1 g/dL (3.2-5.0); Alkaline Phosphatase 125 U/L (45-117); Anion Gap 6 (5-15); BUN 11 mg/dL (7-18); BUN/Creat Ratio 11.7 RATIO (10-20); Calcium,Total 9.4 mg/dL (8.5-10.1); Chloride 110 mmol/L (98-107); Creatinine, Serum 0.94 mg/dL (0.55-1.02); EST Glomerular Filtration Rate 73 mL/min (>60); Est Glom Filt Rate - Afr Amer 88 mL/min (>60); Estimated Creatinine Clearance 70.42 ml/min; Globulin 3.8 g/dL (2.2-4.2); Glucose 89 mg/dL (74-106); Potassium 3.4 mmol/L (3.5-5.1); Protein, Total 7.9 g/dL (6.4-8.2); Sodium Level 140 mmol/L (136-145)
[2023-07-30 23:06] VITALS: PULSE 76; RESP 18; O2SAT 96
--- NOTE | 2023-07-30 23:35 | ED.RN ---
this rn walked into pt room to find pt going through the sharps container. pt informed that it is inappropriate to go through the sharps container and she was asked to wait in the waiting room with the triage nurse for meds to bed. charge nurse marcos and dr. iniguez notified.
== END 2023-07-31 00:04 | disposition home or self-care (01) ==
PROVIDERS: Emergency Provider Emergency Medicine; PCP Nurse Practitioner Primary Care; Visit Provider Emergency Medicine
DX: R10.9 Unspecified abdominal pain (principal); R35.0 Frequency of micturition; R31.9 Hematuria, unspecified; F17.290 Nicotine dependence, other tobacco product, uncomplicated; E66.9 Obesity, unspecified
CPT/HCPCS: 74176; 80053; 81001; 84702; 84703; 85025; 96361; 96374; 96375; 96376; 99283; J7030; A4216; J2405

== ENCOUNTER 2023-09-06 14:50 | Emergency (ER) | payer MEDICAID, SELFPAY ==
[2023-09-06 14:51] VITALS: BP 107/71; PULSE 57; RESP 14; TEMP 37.2; O2SAT 100; BMI 37.2
--- NOTE | 2023-09-06 15:04 | EX.ED.DYSGE1 ---
HPI <MER Zeng - Last Filed: 09/06/23 17:20> History of Present Illness Chief Complaint: Abd Pain Narrative Narrative: 33-year-old female presents with 3 days of pain in her right lower rib cage/right upper quadrant. 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 She has nausea but no vomiting. No fever or chills. She is having regular daily bowel movements. Occasionally she has urinary retention and self catheterizes and states she did this last night. Surgical history includes cholecystectomy, hysterectomy, and ex laps for endometriosis. PFSH <MER Zeng - Last Filed: 09/06/23 17:20> [facility] Medical History Alcohol use Anxiety Back pain Bilateral renal stones Bipolar disorder Cardiology follow-up encounter Chronic interstitial cystitis Conversion disorder Depression Easy bruising Endometriosis Environmental and seasonal allergies Fatty liver Fibromyalgia Gastric reflux High cholesterol History of cervical cancer History of echocardiogram History of edema History of renal disease History of stress test Hypertension Kidney stone Left renal stone Leg cramps Marijuana use Migraine Peptic ulcer of stomach Restless legs Smoker Syncope Wears dentures Wears glasses Home Medications albuterol sulfate 90 mcg/actuation aerosol inhaler (Ventolin HFA) 2 puff inhalation Q6H PRN Shortness Of Breath 09/22/21 [History Last Taken Unknown] diphenhydramine HCl 50 mg capsule 50 mg PO Q6H PRN Allergic Symptoms 09/22/21 [History Last Taken Unknown] dupilumab 300 mg/2 mL subcutaneous syringe (Dupixent) 300 mg subcut .[id number] 09/22/21 [History Last Taken Unknown] erenumab-aooe 70 mg/mL subcutaneous auto-injector (Aimovig Autoinjector) 70 mg subcut QMONTH migrains 09/22/21 [History Last Taken Unknown] escitalopram oxalate 20 mg tablet (Lexapro) 20 mg PO DAILY 09/22/21 [History Last Taken Unknown] fluticasone propionate 50 mcg/actuation nasal spray,suspension 1 spray intranasal DAILY ALLERGIES 09/22/21 [History Last Taken Unknown] omeprazole 40 mg capsule,delayed release 40 mg PO DAILY 09/22/21 [History Last Taken Unknown] tizanidine 4 mg capsule 4 mg PO Q8H PRN Back Pain 09/22/21 [History Last Taken Unknown] propranolol 10 mg tablet 10 mg PO DAILY BP 12/26/21 [History Last Taken Unknown] pregabalin 50 mg capsule 50 mg PO QHS 01/30/23 [History Last Taken Unknown] quetiapine 50 mg tablet,extended release 24 hr 100 mg PO DAILY 01/30/23 [History Last Taken Unknown] promethazine 25 mg rectal suppository (Promethegan) 25 mg RECTAL Q6H PRN PRN Nausea ##6 05/26/23 [Rx Last Taken Unknown] hydrocodone-acetaminophen 5-325mg 5mg-325mg 1 tab PO Q6H PRN PRN Pain 3 days #10 TABLETS 07/30/23 [Rx Last Taken Unknown] Allergy/AdvReac Type Severity Reaction Status Date / Time amitriptyline Allergy MUSCLE Verified 09/06/23 14:51 SPASMS Bleach (Sodium Hypochlorite) Allergy Hives Verified 09/06/23 14:51 codeine Allergy Hives Verified 09/06/23 14:51 ketorolac [From Toradol] Allergy Itching Verified 09/06/23 14:51 nitrofurantoin Allergy Anaphylaxis Verified 09/06/23 14:51 [From Macrodantin] doxycycline AdvReac Vomiting Verified 09/06/23 14:51 Family History Mother Hypertension Migraine Grandmother CVA (cerebral vascular accident) Grandfather Diabetes Father Myocardial infarction Surgical History History of cystoscopy History of hysterectomy Hx of cholecystectomy S/P laparoscopic surgery Social History household members: significant other Smoking Status: Current every day smoker tobacco type: e-cigarettes alcohol intake: current details: occasionally substance use type: does not use caffeine: Yes what type of physical activity do you participate in: walking frequency: 1-2 times per week seatbelt use: always do you feel safe at home: Yes additional social history: Single ROS <MER Zeng - Last Filed: 09/06/23 17:20> ROS ED ROS Narrative Constitutional: Negative for fever, chills, malaise. CVS: Negative for palpitations, chest pain. Respiratory: Negative for shortness of breath, cough. GI: Positive for abdominal pain, nausea. Negative for vomiting, diarrhea, constipation, melena, hematochezia. : Negative for dysuria, hematuria or frequency. EXAM <MER Zeng - Last Filed: 09/06/23 17:20> Physical Exam Narrative Exam Narrative: CONST: Patient sitting in no acute distress. EYES: Normal inspection. NECK: Normal inspection. RESP: No respiratory distress, CTAB. CVS: Regular rate and rhythm, no murmur, no gallop. ABD: Soft with right upper quadrant tenderness, no guarding or rebound, nondistended, no hepatosplenomegaly. Back: Normal inspection, no CVA tenderness. SKIN: Color normal, no rash, warm, dry, intact. EXTREMITIES: Normal appearance, no pedal edema. NEURO: Oriented x4. PSYCH: Normal affect. Const Vital Signs: 09/06/23 14:51 Temperature 98.9 F Temperature Source Temporal Pulse Rate 57 L Respiratory Rate 14 Blood Pressure 107/71 Blood Pressure Mean 83 Pulse Ox 100 Oxygen Delivery Method Room Air <Dr. Brandon Velasquez MD - Last Filed: 09/07/23 00:47> Physical Exam Const Vital Signs: 09/06/23 14:51 Temperature 98.9 F Temperature Source Temporal Pulse Rate 57 L Respiratory Rate 14 Blood Pressure 107/71 Blood Pressure Mean 83 Pulse Ox 100 Oxygen Delivery Method Room Air MDM <MER Zeng - Last Filed: 09/06/23 17:20> [facility] Narrative Medical decision making narrative: Patient presents with right upper quadrant abdominal pain she states is from her Bassett cirrhosis. She appears well and nontoxic. Vital signs are stable. She has normal cardiopulmonary exam and is tender in the right upper quadrant with no peritoneal signs. Labs were obtained while she was treated with Percocet for pain management. She states she cannot have Toradol. CBC shows normal white count 4.8. Mild anemia of 11.8. She has normal electrolytes and renal function, glucose of 211 with normal CO2 and anion gap. Her liver enzymes are overall unremarkable. Her alk phos is only slightly elevated and it is 129. Normal lipase. I do not think she has acute hepatic process causing her pain. She has already had a cholecystectomy and does not require an RUQ ultrasound. Her UA is negative and I did not order test since she has had a hysterectomy. I told her that since there is no clear etiology of her pain I would not prescribe opioids and recommended OTC pain relievers. She should call her PCP/GI physicians tomorrow for follow-up. She was discharged in stable condition. Lab Data Attestation: I reviewed the patient's lab results. Labs: Laboratory Results - last 24 hr 09/06/23 09/06/23 15:15 15:35 WBC 4.8 RBC 3.95 L Hgb 11.8 L Hct 35.9 L MCV 90.9 MCH 29.9 MCHC 32.9 RDW Std Deviation 43.3 RDW Coeff of Romario 13.1 Plt Count 231 MPV 11.6 Immature Gran % (Auto) 1.100 H Neut % (Auto) 60.3 Lymph % (Auto) 30.9 [place] % (Auto) 4.4 Eos % (Auto) 2.9 Baso % (Auto) 0.4 Absolute Neuts (auto) 2.9 Absolute Lymphs (auto) 1.47 Nucleated RBC % 0 Sodium 137 Potassium 4.0 Chloride 108 H Carbon Dioxide 24.0 Anion Gap 5 BUN 9 Creatinine 0.82 Estim Creat Clear Calc 80.72 Est GFR (MDRD) Af Amer 103 Est GFR (MDRD) Non-Af 85 BUN/Creatinine Ratio 10.9 Glucose 211 H Calcium 8.5 Total Bilirubin 0.30 AST 44 H ALT 54 Alkaline Phosphatase 129 H Total Protein 6.9 Albumin 3.3 Globulin 3.6 Albumin/Globulin Ratio 0.9 Lipase 22 Urine Color Yellow Urine Clarity Clear Urine pH 7.0 Ur Specific [place] 1.030 Urine Protein Negative Urine Glucose (UA) Normal Urine Ketones Negative Urine Occult Blood Negative Urine Nitrite Negative Urine Bilirubin Negative Urine Urobilinogen Normal Ur Leukocyte Esterase 25 H Urine RBC 0 SEEN Urine WBC 0-5 SEEN Ur Squamous Epith Cells 0-5 SEEN Urine Bacteria 1+ Urine Mucus 0 SEEN <Dr. Brandon Velasquez MD - Last Filed: 09/07/23 00:47> [facility] Lab Data Labs: Laboratory Results - last 24 hr 09/06/23 09/06/23 15:15 15:35 WBC 4.8 RBC 3.95 L Hgb 11.8 L Hct 35.9 L MCV 90.9 MCH 29.9 MCHC 32.9 RDW Std Deviation 43.3 RDW Coeff of Romario 13.1 Plt Count 231 MPV 11.6 Immature Gran % (Auto) 1.100 H Neut % (Auto) 60.3 Lymph % (Auto) 30.9 [place] % (Auto) 4.4 Eos % (Auto) 2.9 Baso % (Auto) 0.4 Absolute Neuts (auto) 2.9 Absolute Lymphs (auto) 1.47 Nucleated RBC % 0 Sodium 137 Potassium 4.0 Chloride 108 H Carbon Dioxide 24.0 Anion Gap 5 BUN 9 Creatinine 0.82 Estim Creat Clear Calc 80.72 Est GFR (MDRD) Af Amer 103 Est GFR (MDRD) Non-Af 85 BUN/Creatinine Ratio 10.9 Glucose 211 H Calcium 8.5 Total Bilirubin 0.30 AST 44 H ALT 54 Alkaline Phosphatase 129 H Total Protein 6.9 Albumin 3.3 Globulin 3.6 Albumin/Globulin Ratio 0.9 Lipase 22 Urine Color Yellow Urine Clarity Clear Urine pH 7.0 Ur Specific [place] 1.030 Urine Protein Negative Urine Glucose (UA) Normal Urine Ketones Negative Urine Occult Blood Negative Urine Nitrite Negative Urine Bilirubin Negative Urine Urobilinogen Normal Ur Leukocyte Esterase 25 H Urine RBC 0 SEEN Urine WBC 0-5 SEEN Ur Squamous Epith Cells 0-5 SEEN Urine Bacteria 1+ Urine Mucus 0 SEEN Treatment and Re-Evaluation :: I have personally performed a face to face assessment of the patient and have reviewed the NANCY Note. I performed a substantive portion of the visit including all aspects of the following. My swartz findings include: History: Patient is exacerbation of her right upper quadrant pain. She has had a cholecystectomy already. But she also has a history of Bassett. She commonly has pain up there but states it is more today. Normally when it gets worse her Bassett is out of control. No alcohol use. No fevers or chills. Exam: Patient's laying in bed. No acute distress comfortable speaks calmly lungs are clear. Heart is regular nontachycardic. Abdomen is obese but not distended. Bowel sounds are normal. She has minimal if any tenderness on exam. Where she points to the pain is clearly in the abdomen not up in the chest. Medical Decision Making: Patient is given meds here. Blood work not showing any acute abnormalities. I think patient is safe and appropriate for discharge. Discharge Plan Triage Chief Complaint: Abd Pain ED Midlevel Provider: Liz Carney ED Provider: Brandon Velasquez Dx/Rx/DC Orders Clinical Impression: Abdominal pain Instructions: Abdominal Pain Prescriptions: No Action propranolol 10 mg tablet 10 mg PO DAILY diphenhydramine HCl 50 mg Capsule 50 mg PO Q6H PRN (Reason: Allergic Symptoms) omeprazole 40 mg Capsule,Delayed Release(Dr/Ec) 40 mg PO DAILY albuterol sulfate [Ventolin HFA] 90 mcg/actuation Hfa Aerosol Inhaler 2 puff INHALATION Q6H PRN (Reason: Shortness Of Breath) fluticasone propionate 50 mcg/actuation [place],Suspension 1 spray INTRANASAL DAILY escitalopram oxalate [Lexapro] 20 mg Tablet 20 mg PO DAILY tizanidine 4 mg Capsule 4 mg PO Q8H PRN (Reason: Back Pain) Dupixent Syringe 300 mg/2 mL Syringe 300 mg SUBCUT .[id number] Rx Instructions: EVERY 2 WEEKS Aimovig Autoinjector 70 mg/mL Auto-Injector 70 mg SUBCUT QMONTH quetiapine 50 mg tablet extended release 24 hr 100 mg PO DAILY pregabalin 50 mg capsule 50 mg PO QHS promethazine [Promethegan] 25 mg suppository 25 mg RECTAL Q6H PRN PRN (Reason: Nausea) Qty: 6 0RF hydrocodone-acetaminophen [hydrocodone-acetaminophen] 5-325 mg tablet 1 tab PO Q6H PRN PRN (Reason: Pain) 3 Days Qty: 10 0RF Primary Care Provider: Elizabeth Spear NP Referrals: Elizabeth Spear NP, GAS OPERATIONS SUPERINTENDENT-C [Primary Care Provider] - Activity Restrictions/Additional Instructions: Take Tylenol ibuprofen and call your PCP or GI doctor tomorrow for a follow-up appointment Disposition Disposition: Home, Self Care Discharge Date/Time: 09/06/23 17:00
[2023-09-06 15:24] LABS: Absolute Lymphocyte Count 1.47 X10^3/uL (0.83-4.51); Absolute Neutrophil Count 2.9 X10^3/uL (2.0-7.7); Basophil# 0.02 X10^3/uL; Basophil% 0.4 % (0-1); Eosinophil# 0.14 X10^3/uL; Eosinophils% 2.9 % (0-5); Hematocrit 35.9 % (37-47); Hemoglobin 11.8 g/dL (12.0-15.0); Lymphocyte # 1.47 X10^3/ul (0.83-4.51); Lymphocyte % 30.9 % (19-41); Mean Corp Hgb Conc 32.9 g/dL (32-36); Mean Corpuscular Hgb 29.9 pg (27.0-32.0); Mean Corpuscular Volume 90.9 fL (81-99); Mean Platelet Vol. 11.6 fl (6.2-12.0); Monocyte# 0.21 X10^3/uL; Monocyte% 4.4 % (0-10); NRBC Flagged by Analyzer 0 % (0-5); Neutrophil # 2.87 X10^3/uL (2.7-7.7); Neutrophil % 60.3 % (47-70); Platelet Count 231 K/mm3 (150-450); RBC Distribution Width CV 13.1 % (11.6-14.6); RBC Distribution Width SD 43.3 fl (35.1-43.9); Red Blood Count 3.95 M/mm3 (4.2-5.4); White Blood Count 4.8 K/mm3 (4.4-11.0)
[2023-09-06] MEDS: Ondansetron ODT 4 MG Tablet PO (15:32)
[2023-09-06] MEDS: Oxycodone/Apap 5/325 Tablet PO (15:32)
[2023-09-06 15:39] LABS: ALB/GLOB Ratio 0.9 RATIO (0.9-2.4); AST(SGOT) 44 U/L (15-37); Alanine Aminotransfer ALT/SGPT 54 U/L (13-56); Albumin, Serum 3.3 g/dL (3.2-5.0); Alkaline Phosphatase 129 U/L (45-117); Anion Gap 5 (5-15); BUN 9 mg/dL (7-18); BUN/Creat Ratio 10.9 RATIO (10-20); Calcium,Total 8.5 mg/dL (8.5-10.1); Chloride 108 mmol/L (98-107); Creatinine, Serum 0.82 mg/dL (0.55-1.02); EST Glomerular Filtration Rate 85 mL/min (>60); Est Glom Filt Rate - Afr Amer 103 mL/min (>60); Estimated Creatinine Clearance 80.72 ml/min; Globulin 3.6 g/dL (2.2-4.2); Glucose 211 mg/dL (74-106); Lipase 22 U/L (13-75); Protein, Total 6.9 g/dL (6.4-8.2); Sodium Level 137 mmol/L (136-145)
[2023-09-06 15:44] LABS: Mucous, Urine 0 SEEN /hpf (<or=2+); Red Blood Cells-Urine 0 SEEN /hpf (0-5)
[2023-09-06 15:47] LABS: Color, Urine Yellow (Yellow); Glucose, Dipstick Normal (Normal); Ketone-Dipstick Negative (Negative); Leukocyte Esterase-Dipstick 25 /ul (Negative); Nitrite-Dipstick Negative (Negative); Occult Blood-Urine Negative /ul (Negative); Protein-Dipstick Negative (Negative); Urine Bilirubin Dipstick Negative (Negative); Urine Clarity Clear (Clear); Urine Urobilinogen Normal (Normal)
[2023-09-06 15:59] LABS: Bacteria 1+ /hpf (None Seen); Squamous Epithelial Cells - UA 0-5 SEEN /hpf (5-10); White Blood Cells 0-5 SEEN /hpf (0-5)
== END 2023-09-06 17:00 | disposition home or self-care (01) ==
PROVIDERS: Physician Assistant; Emergency Provider Emergency Medicine; PCP Nurse Practitioner Primary Care; Visit Provider Emergency Medicine
DX: R10.11 Right upper quadrant pain (principal); R07.81 Pleurodynia; F17.290 Nicotine dependence, other tobacco product, uncomplicated
CPT/HCPCS: 80053; 81001; 83690; 85025; 99283; A4216

== ENCOUNTER 2023-09-07 21:07 | Emergency (ER) | payer MEDICAID, SELFPAY ==
[2023-09-07 21:08] VITALS: BP 140/79; PULSE 97; RESP 18; TEMP 36.8; O2SAT 98; BMI 36.8
[2023-09-08 00:49] LABS: Mucous, Urine 0 SEEN /hpf (<or=2+)
[2023-09-08 00:52] LABS: Color, Urine Yellow (Yellow); Glucose, Dipstick Normal (Normal); Ketone-Dipstick Negative (Negative); Leukocyte Esterase-Dipstick 100 /ul (Negative); Nitrite-Dipstick Negative (Negative); Occult Blood-Urine 10 /ul (Negative); Protein-Dipstick Negative (Negative); Urine Bilirubin Dipstick Negative (Negative); Urine Clarity Clear (Clear); Urine Urobilinogen Normal (Normal)
[2023-09-08] MEDS: Ondansetron 4 MG/2 ML Vial IV (00:54)
[2023-09-08] MEDS: Morphine 4 MG/ML Syringe IV (00:54)
[2023-09-08 01:00] LABS: Bacteria 1+ /hpf (None Seen); Red Blood Cells-Urine 0-5 SEEN /hpf (0-5); Squamous Epithelial Cells - UA 0-5 SEEN /hpf (5-10); White Blood Cells 10-25 SEEN /hpf (0-5)
[2023-09-08 01:03] LABS: Absolute Lymphocyte Count 3.15 X10^3/uL (0.83-4.51); Absolute Neutrophil Count 4.6 X10^3/uL (2.0-7.7); Basophil# 0.02 X10^3/uL; Basophil% 0.2 % (0-1); Eosinophil# 0.13 X10^3/uL; Eosinophils% 1.6 % (0-5); Hematocrit 38.8 % (37-47); Hemoglobin 12.9 g/dL (12.0-15.0); Lymphocyte # 3.15 X10^3/ul (0.83-4.51); Lymphocyte % 37.6 % (19-41); Mean Corp Hgb Conc 33.2 g/dL (32-36); Mean Corpuscular Hgb 29.8 pg (27.0-32.0); Mean Corpuscular Volume 89.6 fL (81-99); Mean Platelet Vol. 11.3 fl (6.2-12.0); Monocyte# 0.39 X10^3/uL; Monocyte% 4.7 % (0-10); NRBC Flagged by Analyzer 0 % (0-5); Neutrophil # 4.64 X10^3/uL (2.7-7.7); Neutrophil % 55.4 % (47-70); Platelet Count 230 K/mm3 (150-450); RBC Distribution Width CV 13.2 % (11.6-14.6); RBC Distribution Width SD 43.3 fl (35.1-43.9); Red Blood Count 4.33 M/mm3 (4.2-5.4); White Blood Count 8.4 K/mm3 (4.4-11.0)
[2023-09-08 01:30] LABS: AST(SGOT) 43 U/L (15-37); Alanine Aminotransfer ALT/SGPT 60 U/L (13-56); Albumin, Serum 3.7 g/dL (3.2-5.0); Alkaline Phosphatase 140 U/L (45-117); Anion Gap 8 (5-15); BUN 12 mg/dL (7-18); BUN/Creat Ratio 13.7 RATIO (10-20); Bilirubin, Direct < 0.05 mg/dL (0.00-0.30); Calcium,Total 9.2 mg/dL (8.5-10.1); Chloride 106 mmol/L (98-107); Creatinine, Serum 0.87 mg/dL (0.55-1.02); EST Glomerular Filtration Rate 79 mL/min (>60); Est Glom Filt Rate - Afr Amer 96 mL/min (>60); Estimated Creatinine Clearance 76.08 ml/min; Glucose 111 mg/dL (74-106); Lipase 26 U/L (13-75); Potassium 3.7 mmol/L (3.5-5.1); Protein, Total 7.7 g/dL (6.4-8.2); Sodium Level 140 mmol/L (136-145)
--- NOTE | 2023-09-08 02:07 | EX.ED.DYSGE1 ---
HPI History of Present Illness Chief Complaint: Abd Pain Informant: patient Narrative Narrative: 33-year-old female presenting to the emergency room chief complaint of right sided abdominal pain. Patient states this has been present since last week. She states it is constantly been hurting. Is different from the pain that she typically experiences when she gets pain from her Weinstein. She states that her right flank pain is also different from this and that is typically with kidney stones and urinary tract infections. Patient states she was seen in the emergency last week had negative blood work. She states she called her doctor today was advised to come to emergency. She has a follow-up appointment with them on Thursday. She denies any fever or vomiting but does states that she has had nausea. She had a normal bowel movement today for her. She states that when she takes a deep breath and it causes her upper abdomen to hurt. She has had prior cholecystectomy as well as hysterectomy. [facility] Medical History Alcohol use Anxiety Back pain Bilateral renal stones Bipolar disorder Cardiology follow-up encounter Chronic interstitial cystitis Conversion disorder Depression Easy bruising Endometriosis Environmental and seasonal allergies Fatty liver Fibromyalgia Gastric reflux High cholesterol History of cervical cancer History of echocardiogram History of edema History of renal disease History of stress test Hypertension Kidney stone Left renal stone Leg cramps Marijuana use Migraine Peptic ulcer of stomach Restless legs Smoker Syncope Wears dentures Wears glasses Home Medications albuterol sulfate 90 mcg/actuation aerosol inhaler (Ventolin HFA) 2 puff inhalation Q6H PRN Shortness Of Breath 09/22/21 [History Last Taken Unknown] diphenhydramine HCl 50 mg capsule 50 mg PO Q6H PRN Allergic Symptoms 09/22/21 [History Last Taken Unknown] dupilumab 300 mg/2 mL subcutaneous syringe (Dupixent) 300 mg subcut .[id number] 09/22/21 [History Last Taken Unknown] erenumab-aooe 70 mg/mL subcutaneous auto-injector (Aimovig Autoinjector) 70 mg subcut QMONTH migrains 09/22/21 [History Last Taken Unknown] escitalopram oxalate 20 mg tablet (Lexapro) 20 mg PO DAILY 09/22/21 [History Last Taken Unknown] fluticasone propionate 50 mcg/actuation nasal spray,suspension 1 spray intranasal DAILY ALLERGIES 09/22/21 [History Last Taken Unknown] omeprazole 40 mg capsule,delayed release 40 mg PO DAILY 09/22/21 [History Last Taken Unknown] tizanidine 4 mg capsule 4 mg PO Q8H PRN Back Pain 09/22/21 [History Last Taken Unknown] propranolol 10 mg tablet 10 mg PO DAILY BP 12/26/21 [History Last Taken Unknown] pregabalin 50 mg capsule 50 mg PO QHS 01/30/23 [History Last Taken Unknown] quetiapine 50 mg tablet,extended release 24 hr 100 mg PO DAILY 01/30/23 [History Last Taken Unknown] promethazine 25 mg rectal suppository (Promethegan) 25 mg RECTAL Q6H PRN PRN Nausea ##6 05/26/23 [Rx Last Taken Unknown] hydrocodone-acetaminophen 5-325mg 5mg-325mg 1 tab PO Q6H PRN PRN Pain 3 days #10 TABLETS 07/30/23 [Rx Last Taken Unknown] tramadol 50 mg tablet 50 mg PO TID PRN pain #4 tabs 09/08/23 [Rx Last Taken Unknown] Allergy/AdvReac Type Severity Reaction Status Date / Time amitriptyline Allergy MUSCLE Verified 09/07/23 21:07 SPASMS Bleach (Sodium Hypochlorite) Allergy Hives Verified 09/07/23 21:07 codeine Allergy Hives Verified 09/07/23 21:07 ketorolac [From Toradol] Allergy Itching Verified 09/07/23 21:07 nitrofurantoin Allergy Anaphylaxis Verified 09/07/23 21:07 [From Macrodantin] doxycycline AdvReac Vomiting Verified 09/07/23 21:07 Family History Mother Hypertension Migraine Grandmother CVA (cerebral vascular accident) Grandfather Diabetes Father Myocardial infarction Surgical History History of cystoscopy History of hysterectomy Hx of cholecystectomy S/P laparoscopic surgery Social History household members: significant other Smoking Status: Current every day smoker tobacco type: e-cigarettes alcohol intake: current details: occasionally substance use type: does not use caffeine: Yes what type of physical activity do you participate in: walking frequency: 1-2 times per week seatbelt use: always do you feel safe at home: Yes additional social history: Single ROS ROS ED Constitutional Constitutional ED: Denies chills, fever(s) or weight loss Eyes Eyes: Denies change in vision or diplopia ENT ENT ED: Denies ear pain, rhinorrhea or sore throat Cardiovascular Cardiovascular: Denies chest pain, orthopnea, palpitations or racing heartbeat Respiratory/Chest Respiratory/Chest: Denies cough, dyspnea or orthopnea Gastrointestinal Gastrointestinal: Reports abdominal pain; Denies constipation, diarrhea, melena, nausea or vomiting Genitourinary Genitourinary ED: Denies dysuria, hematuria or urinary frequency Musculoskeletal Musculoskeletal: Denies arthralgias or myalgias Integumentary Denies abscess or rash Neurologic Neurologic: Denies headache(s) or weakness Psychiatric Psychiatric: Denies anxiety, depression, suicidal ideation or suicidal thoughts Endocrine Endocrinology: Denies polydipsia, polyphagia or polyuria Allergic/Immunologic Allergic/Immunologic ED: Denies mouth swelling, tongue swelling or urticaria EXAM Physical Exam Const Vital Signs: 09/07/23 21:08 Temperature 98.2 F Temperature Source Temporal Pulse Rate 97 Respiratory Rate 18 Blood Pressure 140/79 H Blood Pressure Mean 99 Pulse Ox 98 Oxygen Delivery Method Room Air Positive well nourished, well developed and obese General Appearance ED: well developed Nutritional Appearance: obese HEENT Reports normocephalic, head/scalp atraumatic and moist mucous membranes Eyes PERRL and EOMs intact bilaterally Neck no lymphadenopathy, supple and no JVD Resp normal respiratory effort and clear to auscultation bilaterally Cardio regular rate, regular rhythm and no murmurs GI Inspection: Negative for abdominal distention Auscultation: normoactive bowel sounds Palpation: soft and tender epigastric and RUQ; Negative for guarding or rebound tenderness present Back/Spine no CVA tenderness and normal ROM Extremity normal to inspection General Extremety ED: Negative for edema General Extremity: Negative for edema Neuro oriented x3 and CN's II-XII intact bilaterally Sensorium / Orientation: alert Motor Exam: strength 5/5 throughout Psych mental status grossly normal Mood & Affect: Negative for depressed or tearful Skin no rashes or lesions noted and no wounds MDM MDM MDM Narrative Medical decision making narrative: Basic blood work was obtained. White count remains normal at 8.4 with a normal differential. BMP showed a glucose of 111 otherwise negative. Liver enzymes AST 43 ALT of 60 alk phos 140. Lipase of 26. Urinalysis negative nitrates 10-25 white cells 1+ bacteria. This will be sent for culture. She states that she is asymptomatic from this. Patient states her pain is coming back and wonders if she can get more pain medicine. I can write to the patient very small amount of Ultram. In my discussion with her I do question the severity of this pain in the context of 2 emergency department visits with essentially unchanged labs and symptomology with no emergent diagnosis. She has appointment tomorrow with primary care. Lab Data Attestation: I reviewed the patient's lab results. Labs: Laboratory Results - last 24 hr 09/08/23 09/08/23 00:07 00:55 WBC 8.4 RBC 4.33 Hgb 12.9 Hct 38.8 MCV 89.6 MCH 29.8 MCHC 33.2 RDW Std Deviation 43.3 RDW Coeff of Romario 13.2 Plt Count 230 MPV 11.3 Immature Gran % (Auto) 0.500 Neut % (Auto) 55.4 Lymph % (Auto) 37.6 [place] % (Auto) 4.7 Eos % (Auto) 1.6 Baso % (Auto) 0.2 Absolute Neuts (auto) 4.6 Absolute Lymphs (auto) 3.15 Nucleated RBC % 0 Sodium 140 Potassium 3.7 Chloride 106 Carbon Dioxide 26.0 Anion Gap 8 BUN 12 Creatinine 0.87 Estim Creat Clear Calc 76.08 Est GFR (MDRD) Af Amer 96 Est GFR (MDRD) Non-Af 79 BUN/Creatinine Ratio 13.7 Glucose 111 H Calcium 9.2 Total Bilirubin 0.20 Direct Bilirubin < 0.05 AST 43 H ALT 60 H Alkaline Phosphatase 140 H Total Protein 7.7 Albumin 3.7 Globulin 4.0 Lipase 26 Urine Color Yellow Urine Clarity Clear Urine pH 7.0 Ur Specific [place] 1.010 Urine Protein Negative Urine Glucose (UA) Normal Urine Ketones Negative Urine Occult Blood 10 H Urine Nitrite Negative Urine Bilirubin Negative Urine Urobilinogen Normal Ur Leukocyte Esterase 100 H Urine RBC 0-5 SEEN Urine WBC 10-25 SEEN Ur Squamous Epith Cells 0-5 SEEN Urine Bacteria 1+ Urine Mucus 0 SEEN Discharge Plan Triage Chief Complaint: Abd Pain ED Provider: Awais La Dx/Rx/DC Orders Clinical Impression: 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, Abdominal pain Instructions: ED Abdominal Pain Unkn Cause Fem Prescriptions: New tramadol 50 mg tablet 50 mg PO TID PRN (Reason: pain) Qty: 4 0RF No Action propranolol 10 mg tablet 10 mg PO DAILY diphenhydramine HCl 50 mg Capsule 50 mg PO Q6H PRN (Reason: Allergic Symptoms) omeprazole 40 mg Capsule,Delayed Release(Dr/Ec) 40 mg PO DAILY albuterol sulfate [Ventolin HFA] 90 mcg/actuation Hfa Aerosol Inhaler 2 puff INHALATION Q6H PRN (Reason: Shortness Of Breath) fluticasone propionate 50 mcg/actuation [place],Suspension 1 spray INTRANASAL DAILY escitalopram oxalate [Lexapro] 20 mg Tablet 20 mg PO DAILY tizanidine 4 mg Capsule 4 mg PO Q8H PRN (Reason: Back Pain) Dupixent Syringe 300 mg/2 mL Syringe 300 mg SUBCUT .[id number] Rx Instructions: EVERY 2 WEEKS Aimovig Autoinjector 70 mg/mL Auto-Injector 70 mg SUBCUT QMONTH quetiapine 50 mg tablet extended release 24 hr 100 mg PO DAILY pregabalin 50 mg capsule 50 mg PO QHS promethazine [Promethegan] 25 mg suppository 25 mg RECTAL Q6H PRN PRN (Reason: Nausea) Qty: 6 0RF hydrocodone-acetaminophen [hydrocodone-acetaminophen] 5-325 mg tablet 1 tab PO Q6H PRN PRN (Reason: Pain) 3 Days Qty: 10 0RF Primary Care Provider: Elizabeth Spear NP Referrals: Elizabeth Spear NP, SCREEN MACHINE OPERATOR-C [Primary Care Provider] - [facility] appointment Disposition Disposition: Home, Self Care
[2023-09-08] MEDS: traMADol 50 MG Tablet PO (02:47)
[2023-09-08 02:51] VITALS: BP 135/78; PULSE 87; RESP 14; O2SAT 98
== END 2023-09-08 02:53 | disposition home or self-care (01) ==
PROVIDERS: Emergency Provider Emergency Medicine; PCP Nurse Practitioner Primary Care; Visit Provider Emergency Medicine
DX: K74.60 Unspecified cirrhosis of liver (principal); K75.81 Nonalcoholic steatohepatitis (NASH); R10.9 Unspecified abdominal pain; F17.290 Nicotine dependence, other tobacco product, uncomplicated
CPT/HCPCS: 80048; 80076; 81001; 83690; 85025; 96374; 96375; 99282; A4216; J2405

== ENCOUNTER 2023-09-15 00:55 | Emergency (ER) | payer MEDICAID, SELFPAY ==
[2023-09-15 00:56] VITALS: BP 138/125; PULSE 78; RESP 18; O2SAT 95
[2023-09-15 00:59] VITALS: BP 159/106; PULSE 71; RESP 12; TEMP 36.3; O2SAT 99; BMI 35.2
[2023-09-15 01:20] VITALS: BP 145/89; PULSE 103; RESP 16; O2SAT 97
--- NOTE | 2023-09-15 01:20 | CT_ITS ---
EXAM: CT brain without contrast HISTORY: headache TECHNIQUE: No intravenous contrast. A radiation dose optimization technique was used for this scan. COMPARISON: None. LIMITATIONS: None. BRAIN: Normal lowery/white matter differentiation. VENTRICLES: No hydrocephalus. EXTRA-AXIAL SPACES: No acute hemorrhage. CALVARIUM/SKULL BASE: No acute fracture. FACE/SINUSES: No significant abnormality. SOFT TISSUES: Normal. OTHER: None. CONCLUSION: No acute intracranial abnormality. Electronically Signed: David Zimmer MD at 2:23 EST , CT/Brain/Head without Contrast IMPRESSION: undefined
--- NOTE | 2023-09-15 01:30 | EX.ED.DYSGE1 ---
HPI History of Present Illness Chief Complaint: Headache Informant: patient Narrative Narrative: Patient is a 33-year-old female with history recurrent abdominal pain [place] and hypertension and migraine headache. She states that she checks her blood pressures occasionally throughout the day as she likes to monitor her values because of her history of hypertension. She states that she takes propranolol once a day in the morning secondary to this. She states that she took her medication as directed today. She denies any illicit drug use or excessive stimulant use. She states that she was checking her blood pressure this evening and it was beginning to run high. She states she was not feeling anxious or pain at that time. She states around midnight and she noticed that she was getting a frontal headache and based on her blood pressure elevating and her headache she was concerned and therefore comes in for evaluation [facility] Medical History Alcohol use Anxiety Back pain Bilateral renal stones Bipolar disorder Cardiology follow-up encounter Chronic interstitial cystitis Conversion disorder Depression Easy bruising Endometriosis Environmental and seasonal allergies Fatty liver Fibromyalgia Gastric reflux High cholesterol History of cervical cancer History of echocardiogram History of edema History of renal disease History of stress test Hypertension Kidney stone Left renal stone Leg cramps Marijuana use Migraine Peptic ulcer of stomach Restless legs Smoker Syncope Wears dentures Wears glasses Home Medications albuterol sulfate 90 mcg/actuation aerosol inhaler (Ventolin HFA) 2 puff inhalation Q6H PRN Shortness Of Breath 09/22/21 [History Last Taken Unknown] diphenhydramine HCl 50 mg capsule 50 mg PO Q6H PRN Allergic Symptoms 09/22/21 [History Last Taken Unknown] dupilumab 300 mg/2 mL subcutaneous syringe (Dupixent) 300 mg subcut .[id number] 09/22/21 [History Last Taken Unknown] erenumab-aooe 70 mg/mL subcutaneous auto-injector (Aimovig Autoinjector) 70 mg subcut QMONTH migrains 09/22/21 [History Last Taken Unknown] escitalopram oxalate 20 mg tablet (Lexapro) 20 mg PO DAILY 09/22/21 [History Last Taken Unknown] fluticasone propionate 50 mcg/actuation nasal spray,suspension 1 spray intranasal DAILY ALLERGIES 09/22/21 [History Last Taken Unknown] omeprazole 40 mg capsule,delayed release 40 mg PO DAILY 09/22/21 [History Last Taken Unknown] tizanidine 4 mg capsule 4 mg PO Q8H PRN Back Pain 09/22/21 [History Last Taken Unknown] propranolol 10 mg tablet 10 mg PO DAILY BP 12/26/21 [History Last Taken Unknown] pregabalin 50 mg capsule 50 mg PO QHS 01/30/23 [History Last Taken Unknown] quetiapine 50 mg tablet,extended release 24 hr 100 mg PO DAILY 01/30/23 [History Last Taken Unknown] promethazine 25 mg rectal suppository (Promethegan) 25 mg RECTAL Q6H PRN PRN Nausea ##6 05/26/23 [Rx Last Taken Unknown] hydrocodone-acetaminophen 5-325mg 5mg-325mg 1 tab PO Q6H PRN PRN Pain 3 days #10 TABLETS 07/30/23 [Rx Last Taken Unknown] tramadol 50 mg tablet 50 mg PO TID PRN pain #4 tabs 09/08/23 [Rx Last Taken Unknown] pregabalin 75 mg capsule 75 mg PO Q8H 09/15/23 [History Last Taken Unknown] Allergy/AdvReac Type Severity Reaction Status Date / Time amitriptyline Allergy MUSCLE Verified 09/15/23 00:59 SPASMS Bleach (Sodium Hypochlorite) Allergy Hives Verified 09/15/23 00:59 codeine Allergy Hives Verified 09/15/23 00:59 ketorolac [From Toradol] Allergy Itching Verified 09/15/23 00:59 nitrofurantoin Allergy Anaphylaxis Verified 09/15/23 00:59 [From Macrodantin] doxycycline AdvReac Vomiting Verified 09/15/23 00:59 Family History Mother Hypertension Migraine Grandmother CVA (cerebral vascular accident) Grandfather Diabetes Father Myocardial infarction Surgical History History of cystoscopy History of hysterectomy Hx of cholecystectomy S/P laparoscopic surgery Social History household members: significant other Smoking Status: Current every day smoker tobacco type: e-cigarettes alcohol intake: current details: occasionally substance use type: does not use caffeine: Yes what type of physical activity do you participate in: walking frequency: 1-2 times per week seatbelt use: always do you feel safe at home: Yes additional social history: Single ROS ROS ED Constitutional Constitutional ED: Denies chills or fever(s) ENT ENT ED: Denies sore throat Cardiovascular Cardiovascular: Reports chest pain; Denies palpitations or racing heartbeat Respiratory/Chest Respiratory/Chest: Denies cough or dyspnea Gastrointestinal Gastrointestinal: Reports abdominal pain and nausea; Denies diarrhea or vomiting Genitourinary Genitourinary ED: Denies dysuria Musculoskeletal Musculoskeletal: Denies back pain, myalgias or neck pain Integumentary Denies rash Neurologic Neurologic: Reports headache(s) Hematologic/Lymphatic Hematologic/Lymphatic: Denies easy bleeding or easy bruising EXAM Physical Exam Const Vital Signs: 09/15/23 00:59 09/15/23 00:56 09/15/23 01:04 Temperature 97.4 F L Temperature Source Temporal Pulse Rate 71 78 Respiratory Rate 12 18 Respiratory Effort Normal Blood Pressure 159/106 H 138/125 H Blood Pressure Mean 123 129 Pulse Ox 99 95 Oxygen Delivery Method Room Air Room Air 09/15/23 01:20 09/15/23 02:04 09/15/23 02:48 Temperature Temperature Source Pulse Rate 103 H 84 74 Respiratory Rate 16 17 16 Respiratory Effort Blood Pressure 145/89 H 162/91 H 159/97 H Blood Pressure Mean 107 114 117 Pulse Ox 97 96 97 Oxygen Delivery Method Room Air Room Air Room Air Positive well nourished, well developed and obese General Appearance ED: well developed; Negative for pallor Nutritional Appearance: obese HEENT HEENT Narrative: Normocephalic atraumatic Eyes PERRL and EOMs intact bilaterally General Eye ED: Negative for scleral icterus Neck supple Neck Narrative: No nuchal rigidity or meningeal signs noted No carotid bruits present Resp normal respiratory effort and clear to auscultation bilaterally Cardio regular rate and regular rhythm Rate: other Other Details: Heart is regular rate and rhythm without murmurs rubs or gallops Radial and carotid pulses are equal and symmetric GI non-tender and non-distended GI Narrative: Abdomen is obese soft nontender and nondistended with hypoactive bowel sounds No voluntary guarding or rigidity No pulsatile mass or fluid wave Auscultation: hypoactive bowel sounds Palpation: soft Extremity normal to inspection Extremity Narrative: No asymmetric edema no pitting edema negative Homans' sign bilaterally Neuro oriented x3 and CN's II-XII intact bilaterally Neuro Narrative: Cranial nerves II through XII are grossly intact there are no focal neurologic deficits No pronator drift, no dysmetria, no truncal ataxia NIH stroke scale score of 0 Sensorium / Orientation: alert Motor Exam: strength 5/5 throughout Psych Psych Narrative: Patient has a flat affect Skin no rashes or lesions noted General Skin Exam: Negative for jaundice or pallor MDM MDM MDM Narrative Medical decision making narrative: Patient presented to the ER hypertensive but this was improved from what she reported at home. On physical exam she does not show changes consistent with endorgan damage. However based on her headache and hypertension and her diagnosis is for potential hemorrhagic stroke versus hypertensive emergency versus acute coronary syndrome versus acute kidney injury and therefore basic labs were obtained as well as a noncontrast head CT. Head CT revealed no acute bleed or mass. Troponin is normal at 39 and chart review reveals that in July 17 her value was the same at approximately 37 and roughly 1 month ago her value was even higher at 52 and is downtrending is reassuring. The patient does not have signs of acute kidney injury as her creatinine is normal 0.78 and there are no significant electrolyte derangement. Patient was medicated with IV hydralazine and oral clonidine secondary to hypertension. She remained reduced approximately 15 to 20% from her reported highest value at home. She was also given IV Benadryl Reglan and Dilaudid secondary to her headache which she states has been her migraine cocktail in the past. On reevaluation she does report moderate improvement of her headache her neurologic exam remained normal. Therefore at this time with improvement of her hypertension as well as headache a normal neurologic exam and no signs of endorgan damage I do not feel there is need for further workup and patient is otherwise safe for discharge History & Record Review Discussion w/independent historian: Patient Lab Data Attestation: I reviewed the patient's lab results. Labs: Laboratory Results - last 24 hr 09/15/23 01:25 WBC 5.8 RBC 3.99 L Hgb 11.8 L Hct 36.1 L MCV 90.5 MCH 29.6 MCHC 32.7 RDW Std Deviation 43.8 RDW Coeff of Romario 13.2 Plt Count 190 MPV 11.3 Immature Gran % (Auto) 0.300 Neut % (Auto) 48.5 Lymph % (Auto) 43.2 H [place] % (Auto) 6.3 Eos % (Auto) 1.4 Baso % (Auto) 0.3 Absolute Neuts (auto) 2.8 Absolute Lymphs (auto) 2.49 Nucleated RBC % 0 Sodium 140 Potassium 3.8 Chloride 108 H Carbon Dioxide 28.0 Anion Gap 4 L BUN 16 Creatinine 0.78 Estim Creat Clear Calc 84.86 Est GFR (MDRD) Af Amer 109 Est GFR (MDRD) Non-Af 90 BUN/Creatinine Ratio 20.5 H Glucose 106 Calcium 9.2 Troponin I High Sens 39 Radiography Diagnostic Testing: Clinical Impression(s) from Imaging Studies Brain CT 09/15/23 01:20 IMPRESSION: undefined Discharge Plan Triage Chief Complaint: Headache ED Provider: Lanre Puentes Dx/Rx/DC Orders Clinical Impression: Accelerated hypertension, Cephalgia Instructions: ED Headache Unspecified, ED Hypertension, Established Prescriptions: No Action propranolol 10 mg tablet 10 mg PO DAILY diphenhydramine HCl 50 mg Capsule 50 mg PO Q6H PRN (Reason: Allergic Symptoms) omeprazole 40 mg Capsule,Delayed Release(Dr/Ec) 40 mg PO DAILY albuterol sulfate [Ventolin HFA] 90 mcg/actuation Hfa Aerosol Inhaler 2 puff INHALATION Q6H PRN (Reason: Shortness Of Breath) fluticasone propionate 50 mcg/actuation [place],Suspension 1 spray INTRANASAL DAILY escitalopram oxalate [Lexapro] 20 mg Tablet 20 mg PO DAILY tizanidine 4 mg Capsule 4 mg PO Q8H PRN (Reason: Back Pain) Dupixent Syringe 300 mg/2 mL Syringe 300 mg SUBCUT .[id number] Rx Instructions: EVERY 2 WEEKS Aimovig Autoinjector 70 mg/mL Auto-Injector 70 mg SUBCUT QMONTH quetiapine 50 mg tablet extended release 24 hr 100 mg PO DAILY pregabalin 50 mg capsule 50 mg PO QHS promethazine [Promethegan] 25 mg suppository 25 mg RECTAL Q6H PRN PRN (Reason: Nausea) Qty: 6 0RF hydrocodone-acetaminophen [hydrocodone-acetaminophen] 5-325 mg tablet 1 tab PO Q6H PRN PRN (Reason: Pain) 3 Days Qty: 10 0RF tramadol 50 mg tablet 50 mg PO TID PRN (Reason: pain) Qty: 4 0RF pregabalin 75 mg capsule 75 mg PO Q8H Patient Comments: TAKE 1 CAPSULE BY MOUTH THREE TIMES DAILY Primary Care Provider: Elizabeth Spear NP Referrals: Elizabeth Spear NP, [facility] [Primary Care Provider] - Activity Restrictions/Additional Instructions: Your workup today showed no sign of heart damage kidney damage or brain damage. Continue all of your medications as directed by your family doctor and return to the ER should you have any further concerns Disposition Disposition: Home, Self Care
[2023-09-15 01:32] LABS: Absolute Lymphocyte Count 2.49 X10^3/uL (0.83-4.51); Absolute Neutrophil Count 2.8 X10^3/uL (2.0-7.7); Basophil# 0.02 X10^3/uL; Basophil% 0.3 % (0-1); Eosinophil# 0.08 X10^3/uL; Eosinophils% 1.4 % (0-5); Hematocrit 36.1 % (37-47); Hemoglobin 11.8 g/dL (12.0-15.0); Lymphocyte # 2.49 X10^3/ul (0.83-4.51); Lymphocyte % 43.2 % (19-41); Mean Corp Hgb Conc 32.7 g/dL (32-36); Mean Corpuscular Hgb 29.6 pg (27.0-32.0); Mean Corpuscular Volume 90.5 fL (81-99); Mean Platelet Vol. 11.3 fl (6.2-12.0); Monocyte# 0.36 X10^3/uL; Monocyte% 6.3 % (0-10); NRBC Flagged by Analyzer 0 % (0-5); Neutrophil # 2.79 X10^3/uL (2.7-7.7); Neutrophil % 48.5 % (47-70); Platelet Count 190 K/mm3 (150-450); RBC Distribution Width CV 13.2 % (11.6-14.6); RBC Distribution Width SD 43.8 fl (35.1-43.9); Red Blood Count 3.99 M/mm3 (4.2-5.4); White Blood Count 5.8 K/mm3 (4.4-11.0)
[2023-09-15] MEDS: Metoclopramide 10 MG/2 ML Vial IV (01:32)
[2023-09-15] MEDS: HYDROmorphone 0.5 MG/0.5 ML SYRINGE IV ×2 (01:32→02:51)
[2023-09-15] MEDS: DiphenhydrAMINE 50 MG/ML Syringe IV (01:32)
[2023-09-15 01:49] LABS: Anion Gap 4 (5-15); BUN 16 mg/dL (7-18); BUN/Creat Ratio 20.5 RATIO (10-20); Calcium,Total 9.2 mg/dL (8.5-10.1); Chloride 108 mmol/L (98-107); Creatinine, Serum 0.78 mg/dL (0.55-1.02); EST Glomerular Filtration Rate 90 mL/min (>60); Est Glom Filt Rate - Afr Amer 109 mL/min (>60); Estimated Creatinine Clearance 84.86 ml/min; Glucose 106 mg/dL (74-106); Potassium 3.8 mmol/L (3.5-5.1); Sodium Level 140 mmol/L (136-145); Troponin-I HS 39 pg/mL (3.0-54.0)
[2023-09-15 02:04] VITALS: BP 162/91; PULSE 84; RESP 17; O2SAT 96
[2023-09-15 02:48] VITALS: BP 159/97; PULSE 74; RESP 16; O2SAT 97
[2023-09-15] MEDS: cloNIDine HCl 0.1 MG Tablet PO (02:51)
[2023-09-15] MEDS: hydrALAZINE 20 MG/ML Vial 10 MG IV (02:52)
[2023-09-15 03:15] VITALS: BP 149/82; PULSE 75; RESP 16; O2SAT 97
== END 2023-09-15 03:17 | disposition home or self-care (01) ==
PROVIDERS: Emergency Provider Emergency Medicine; PCP Nurse Practitioner Primary Care; Visit Provider Emergency Medicine
DX: I10 Essential (primary) hypertension (principal); R51.9 Headache, unspecified; F17.290 Nicotine dependence, other tobacco product, uncomplicated; E66.9 Obesity, unspecified; K21.9 Gastro-esophageal reflux disease without esophagitis; Z79.899 Other long term (current) drug therapy
CPT/HCPCS: 70450; 80048; 84484; 85025; 93005; 96374; 96375; 96376; 99283; A4216

== ENCOUNTER 2023-09-29 18:00 | Emergency (ER) | payer MEDICAID, SELFPAY ==
[2023-09-29 18:01] VITALS: BP 154/90; PULSE 70; RESP 16; TEMP 35.9; O2SAT 100; BMI 35.7
--- NOTE | 2023-09-29 18:41 | CT_ITS ---
EXAM: CT ABDOMEN AND PELVIS WITH INTRAVENOUS CONTRAST CLINICAL INDICATION: Abdominal pain -- IV PO Contrast TECHNIQUE: Helically acquired images were obtained of the abdomen and pelvis with intravenous contrast. This CT exam was performed using one or more of the following dose reduction techniques: automated exposure control, adjustment of the mA and/or kV according to patient size, and/or use of iterative reconstruction technique. CONTRAST: Oral and amp; IV Gastrografin and amp; 100mL Isovue-370 COMPARISON: 07/30/2023 FINDINGS: LOWER THORAX: Unremarkable. Lung bases are clear. No cardiomegaly. No significant pericardial effusion. ABDOMEN: LIVER: Liver is diffusely decreased in attenuation compatible with fatty infiltration. GALLBLADDER AND BILE DUCTS: Unremarkable. No calcified gallstones. No gallbladder distention or wall edema. No intra- or extrahepatic biliary ductal dilation. PANCREAS: Unremarkable. No focal cystic or solid mass. SPLEEN: Unremarkable. Normal size without focal cystic or solid mass. ADRENALS: Unremarkable. No nodules. KIDNEYS AND URETERS: Unremarkable. Normal renal size and position. No hydronephrosis. STOMACH AND BOWEL: Unremarkable. No stomach or bowel distention. No focal inflammatory change. PELVIS: APPENDIX: No evidence of acute appendicitis. BLADDER: Unremarkable. REPRODUCTIVE: The patient status post hysterectomy. ABDOMEN and PELVIS: INTRAPERITONEAL SPACE: Unremarkable. No ascites or other fluid collection. No free air. BONES/JOINTS: Unremarkable. No suspicious lytic or blastic abnormality. SOFT TISSUES: Unremarkable. No discrete abdominal or pelvic wall hernia. VASCULATURE: Unremarkable. Abdominal aorta is non-dilated. LYMPH NODES: Unremarkable. No enlarged lymph nodes. CT/Abdomen/Pelvis WITH Contrast IMPRESSION: No acute findings in the abdomen or pelvis. Electronically Signed: Alex Polk MD at 20:49 EST ,
[2023-09-29] MEDS: 0.9% Normal Saline (1000mL) 1,000 ML 1000 ML IV (18:50)
--- NOTE | 2023-09-29 18:50 | ED.VIS.GI ---
HPI HPI - GI History of Present Illness Chief Complaint: Abd Pain Informant: patient Abdominal Pain/Flank Pain Onset: Weeks (2) Context: Gradual Onset Timing: Continuous Quality: Sharp and Stabbing Location: RUQ, RLQ and Right Flank Worsened by: Movement and - (Deep breathing) Relieved by: Nothing Nausea/Vomiting/Emesis GI Symptom: Positive for Nausea; Negative for Vomiting Diarrhea/Melena/Hematochezia GI Symptom: Positive for Diarrhea; Negative for Melena or Hematochezia Associated Symptoms Associated Symptoms: Negative for Dysuria, Frequency or Hematuria Narrative Narrative: Patient presents with abdominal pain that has been constant for the past 2 weeks. Patient states it came on gradually. Patient states her pain is mainly over the right side of her abdomen. Patient describes it as sharp and stabbing. Patient states it is worse with certain movements and taking a deep breath. Patient admits to some nausea and decreased appetite. Patient denies any vomiting. Patient does admit to some diarrhea but denies any melena or hematochezia. Patient denies any urinary complaints. Patient denies any fevers or chills. PFSH [facility] Medical History Alcohol use Anxiety Back pain Bilateral renal stones Bipolar disorder Cardiology follow-up encounter Chronic interstitial cystitis Conversion disorder Depression Easy bruising Endometriosis Environmental and seasonal allergies Fatty liver Fibromyalgia Gastric reflux High cholesterol History of cervical cancer History of echocardiogram History of edema History of renal disease History of stress test Hypertension Kidney stone Left renal stone Leg cramps Marijuana use Migraine Peptic ulcer of stomach Restless legs Smoker Syncope Wears dentures Wears glasses Home Medications albuterol sulfate 90 mcg/actuation aerosol inhaler (Ventolin HFA) 2 puff inhalation Q6H PRN Shortness Of Breath 09/22/21 [History Last Taken Unknown] diphenhydramine HCl 50 mg capsule 50 mg PO Q6H PRN Allergic Symptoms 09/22/21 [History Last Taken Unknown] dupilumab 300 mg/2 mL subcutaneous syringe (Dupixent) 300 mg subcut .[id number] 09/22/21 [History Last Taken Unknown] escitalopram oxalate 20 mg tablet (Lexapro) 20 mg PO DAILY 09/22/21 [History Last Taken Unknown] fluticasone propionate 50 mcg/actuation nasal spray,suspension 1 spray intranasal DAILY ALLERGIES 09/22/21 [History Last Taken Unknown] omeprazole 40 mg capsule,delayed release 40 mg PO DAILY 09/22/21 [History Last Taken Unknown] tizanidine 4 mg capsule 4 mg PO Q8H PRN Back Pain 09/22/21 [History Last Taken Unknown] propranolol 10 mg tablet 10 mg PO DAILY BP 12/26/21 [History Last Taken Unknown] quetiapine 50 mg tablet,extended release 24 hr 100 mg PO DAILY 01/30/23 [History Last Taken Unknown] pregabalin 75 mg capsule 75 mg PO Q8H 09/15/23 [History Last Taken Unknown] hydrocodone-acetaminophen 5-325mg 5mg-325mg 1 tab PO Q6H PRN PRN Pain 3 days #10 TABLETS 09/29/23 [Rx Last Taken Unknown] Allergy/AdvReac Type Severity Reaction Status Date / Time amitriptyline Allergy MUSCLE Verified 09/29/23 18:01 SPASMS Bleach (Sodium Hypochlorite) Allergy Hives Verified 09/29/23 18:01 codeine Allergy Hives Verified 09/29/23 18:01 ketorolac [From Toradol] Allergy Itching Verified 09/29/23 18:01 nitrofurantoin Allergy Anaphylaxis Verified 09/29/23 18:01 [From Macrodantin] doxycycline AdvReac Vomiting Verified 09/29/23 18:01 Family History Mother Hypertension Migraine Grandmother CVA (cerebral vascular accident) Grandfather Diabetes Father Myocardial infarction Surgical History History of cystoscopy History of hysterectomy Hx of cholecystectomy S/P laparoscopic surgery Social History household members: significant other Smoking Status: Current every day smoker tobacco type: e-cigarettes alcohol intake: current details: occasionally substance use type: does not use caffeine: Yes what type of physical activity do you participate in: walking frequency: 1-2 times per week seatbelt use: always do you feel safe at home: Yes additional social history: Single ROS ROS ED Constitutional Constitutional ED: Denies chills or fever(s) Eyes Eyes: Denies blurry vision or change in vision ENT ENT ED: Denies rhinorrhea or sore throat Cardiovascular Cardiovascular: Reports chest pain; Denies palpitations Respiratory/Chest Respiratory/Chest: Denies cough or dyspnea Gastrointestinal Gastrointestinal: Denies nausea or vomiting Genitourinary Genitourinary ED: Denies dysuria or hematuria Musculoskeletal Musculoskeletal: Reports back pain and neck pain Integumentary Denies abscess or rash Neurologic Neurologic: Reports headache(s); Denies weakness Allergic/Immunologic Allergic/Immunologic ED: Denies mouth swelling or urticaria EXAM Physical Exam Const Vital Signs: 09/29/23 18:01 09/29/23 19:03 Temperature 96.6 F L Temperature Source Temporal Pulse Rate 70 86 Respiratory Rate 16 16 Blood Pressure 154/90 H 153/80 H Blood Pressure Mean 111 104 Pulse Ox 100 98 Oxygen Delivery Method Room Air Room Air Positive well nourished and well developed General Appearance ED: well developed and NAD HEENT Reports moist mucous membranes Neck supple and no JVD Resp normal respiratory effort and clear to auscultation bilaterally Cardio regular rate and regular rhythm GI non-distended Palpation: soft and tender epigastric, RLQ and RUQ Back/Spine General Back: CVA tenderness right Neuro CN's II-XII intact bilaterally, moves all extremities and no sensory deficits noted Sensorium / Orientation: alert Motor Exam: strength 5/5 throughout MDM MDM MDM Narrative Medical decision making narrative: Differential diagnosis includes ureteral calculus, appendicitis, cirrhosis, pyelonephritis, gastritis, peptic ulcer disease, duodenal ulcer, and mesenteric adenitis. CBC will be obtained to assess for leukocytosis and anemia. Comprehensive metabolic profile will be obtained to assess for hepatic function, renal function, and electrolyte abnormality. Lipase will be obtained to assess for pancreatitis. Urinalysis will be obtained to assess for urinary tract infection. Lactic acid will be obtained to assess for sepsis. CT scan of the abdomen pelvis will be obtained to assess for bowel obstruction, perforation, appendicitis, and ureteral calculus. Lab Data Attestation: I reviewed the patient's lab results. Lab results narrative: CBC was reviewed and was within normal limits. Comprehensive metabolic profile was reviewed. Alkaline phosphatase was slightly elevated at 144. The remainder was essentially within normal limits. Lipase was reviewed and was normal. Urinalysis was reviewed. There is no evidence of urinary tract infection or hematuria. Labs: Laboratory Results - last 24 hr 09/29/23 09/29/23 19:00 19:20 WBC 7.3 RBC 4.45 Hgb 13.4 Hct 40.0 MCV 89.9 MCH 30.1 MCHC 33.5 RDW Std Deviation 43.5 RDW Coeff of Romario 13.2 Plt Count 229 MPV 11.8 Immature Gran % (Auto) 0.100 Neut % (Auto) 62.1 Lymph % (Auto) 33.0 [place] % (Auto) 4.0 Eos % (Auto) 0.5 Baso % (Auto) 0.3 Absolute Neuts (auto) 4.6 Absolute Lymphs (auto) 2.42 Nucleated RBC % 0 Sodium 140 Potassium 4.0 Chloride 108 H Carbon Dioxide 25.0 Anion Gap 7 BUN 9 Creatinine 0.92 Estim Creat Clear Calc 71.95 Est GFR (MDRD) Af Amer 91 Est GFR (MDRD) Non-Af 75 BUN/Creatinine Ratio 9.8 L Glucose 97 Lactic Acid 1.1 Calcium 9.9 Total Bilirubin 0.50 AST 48 H ALT 45 Alkaline Phosphatase 144 H Total Protein 8.9 H Albumin 4.5 Globulin 4.4 H Albumin/Globulin Ratio 1.0 Lipase 49 Urine Color Yellow Urine Clarity Clear Urine pH 6.5 Ur Specific [place] 1.010 Urine Protein Negative Urine Glucose (UA) Normal Urine Ketones Negative Urine Occult Blood 10 H Urine Nitrite Negative Urine Bilirubin Negative Urine Urobilinogen Normal Ur Leukocyte Esterase Negative Urine RBC 0 SEEN Urine WBC 0 SEEN Ur Squamous Epith Cells 0-5 SEEN Urine Bacteria 0 SEEN Urine Mucus 0 SEEN Radiography Diagnostic Testing: Clinical Impression(s) from Imaging Studies Abdomen/Pelvis CT 09/29/23 18:41 IMPRESSION: No acute findings in the abdomen or pelvis. Electronically Signed: Alex Polk MD at 20:49 EST , CT scan of the abdomen pelvis was obtained. There is no acute intra-abdominal process noted. There is no free air or free fluid. There is no ureteral calculus, hydroureter or hydronephrosis. There is no evidence of appendicitis. This was interpreted by the radiologist and was also independently reviewed by myself. Treatment and Re-Evaluation :: Patient was given IV fluids, morphine, and Zofran. Patient was given a repeat dose of morphine. Patient was advised of her findings. Patient was instructed to drink plenty of fluids. Patient was instructed to take Tylenol or ibuprofen as needed for pain. Patient was instructed to follow-up with her primary care physician in 3 to 5 days for reevaluation. Patient understood and was agreeable with the plan. All questions were answered. Discharge Plan Triage Chief Complaint: Abd Pain ED Provider: Gage Joya Dx/Rx/DC Orders Clinical Impression: Abdominal pain, Pelvic pain Instructions: ED Abdominal Pain Unkn Cause Fem Prescriptions: New hydrocodone-acetaminophen [hydrocodone-acetaminophen] 5-325 mg tablet 1 tab PO Q6H PRN PRN (Reason: Pain) 3 Days Qty: 10 0RF No Action propranolol 10 mg tablet 10 mg PO DAILY diphenhydramine HCl 50 mg Capsule 50 mg PO Q6H PRN (Reason: Allergic Symptoms) omeprazole 40 mg Capsule,Delayed Release(Dr/Ec) 40 mg PO DAILY albuterol sulfate [Ventolin HFA] 90 mcg/actuation Hfa Aerosol Inhaler 2 puff INHALATION Q6H PRN (Reason: Shortness Of Breath) fluticasone propionate 50 mcg/actuation [place],Suspension 1 spray INTRANASAL DAILY escitalopram oxalate [Lexapro] 20 mg Tablet 20 mg PO DAILY tizanidine 4 mg Capsule 4 mg PO Q8H PRN (Reason: Back Pain) Dupixent Syringe 300 mg/2 mL Syringe 300 mg SUBCUT .[id number] Rx Instructions: EVERY 2 WEEKS quetiapine 50 mg tablet extended release 24 hr 100 mg PO DAILY pregabalin 75 mg capsule 75 mg PO Q8H Patient Comments: TAKE 1 CAPSULE BY MOUTH THREE TIMES DAILY Primary Care Provider: Elizabeth Spear NP Referrals: Elizabeth Spear NP, [facility] [Primary Care Provider] - 3-5 Days Disposition Disposition: Home, Self Care
[2023-09-29] MEDS: Ondansetron 4 MG/2 ML Vial IV (18:51)
[2023-09-29] MEDS: Morphine 4 MG/ML Syringe IV ×2 (18:51→21:37)
[2023-09-29 19:03] VITALS: BP 153/80; PULSE 86; RESP 16; O2SAT 98
[2023-09-29 19:07] LABS: Absolute Lymphocyte Count 2.42 X10^3/uL (0.83-4.51); Absolute Neutrophil Count 4.6 X10^3/uL (2.0-7.7); Basophil# 0.02 X10^3/uL; Basophil% 0.3 % (0-1); Eosinophil# 0.04 X10^3/uL; Eosinophils% 0.5 % (0-5); Hemoglobin 13.4 g/dL (12.0-15.0); Lymphocyte # 2.42 X10^3/ul (0.83-4.51); Mean Corp Hgb Conc 33.5 g/dL (32-36); Mean Corpuscular Hgb 30.1 pg (27.0-32.0); Mean Corpuscular Volume 89.9 fL (81-99); Mean Platelet Vol. 11.8 fl (6.2-12.0); Monocyte# 0.29 X10^3/uL; NRBC Flagged by Analyzer 0 % (0-5); Neutrophil # 4.56 X10^3/uL (2.7-7.7); Neutrophil % 62.1 % (47-70); Platelet Count 229 K/mm3 (150-450); RBC Distribution Width CV 13.2 % (11.6-14.6); RBC Distribution Width SD 43.5 fl (35.1-43.9); Red Blood Count 4.45 M/mm3 (4.2-5.4); White Blood Count 7.3 K/mm3 (4.4-11.0)
[2023-09-29 19:24] LABS: AST(SGOT) 48 U/L (15-37); Alanine Aminotransfer ALT/SGPT 45 U/L (13-56); Albumin, Serum 4.5 g/dL (3.2-5.0); Alkaline Phosphatase 144 U/L (45-117); Anion Gap 7 (5-15); BUN 9 mg/dL (7-18); BUN/Creat Ratio 9.8 RATIO (10-20); Calcium,Total 9.9 mg/dL (8.5-10.1); Chloride 108 mmol/L (98-107); Creatinine, Serum 0.92 mg/dL (0.55-1.02); EST Glomerular Filtration Rate 75 mL/min (>60); Est Glom Filt Rate - Afr Amer 91 mL/min (>60); Estimated Creatinine Clearance 71.95 ml/min; Globulin 4.4 g/dL (2.2-4.2); Glucose 97 mg/dL (74-106); Lipase 49 U/L (13-75); Protein, Total 8.9 g/dL (6.4-8.2); Sodium Level 140 mmol/L (136-145)
[2023-09-29 19:25] LABS: Bacteria 0 SEEN /hpf (None Seen); Mucous, Urine 0 SEEN /hpf (<or=2+); Red Blood Cells-Urine 0 SEEN /hpf (0-5); White Blood Cells 0 SEEN /hpf (0-5)
[2023-09-29 19:26] LABS: Color, Urine Yellow (Yellow); Glucose, Dipstick Normal (Normal); Ketone-Dipstick Negative (Negative); Leukocyte Esterase-Dipstick Negative /ul (Negative); Nitrite-Dipstick Negative (Negative); Occult Blood-Urine 10 /ul (Negative); Protein-Dipstick Negative (Negative); Urine Bilirubin Dipstick Negative (Negative); Urine Clarity Clear (Clear); Urine Urobilinogen Normal (Normal); Urine pH 6.5 (5.0 - 8.0)
[2023-09-29 19:33] LABS: Squamous Epithelial Cells - UA 0-5 SEEN /hpf (5-10)
[2023-09-29 19:44] LABS: Lactic Acid 1.1 mmol/L (0.4-1.9)
== END 2023-09-29 22:11 | disposition home or self-care (01) ==
PROVIDERS: Emergency Provider Emergency Medicine; PCP Nurse Practitioner Primary Care; Visit Provider Emergency Medicine
DX: R10.2 Pelvic and perineal pain (principal); I10 Essential (primary) hypertension; F17.290 Nicotine dependence, other tobacco product, uncomplicated; Z79.899 Other long term (current) drug therapy
CPT/HCPCS: 74177; 80053; 81001; 83605; 83690; 85025; 96361; 96374; 96375; 96376; 99284; J7030; Q9967; A4216; J2405

== ENCOUNTER 2023-10-07 16:59 | Emergency (ER) | payer MEDICAID, SELFPAY ==
[2023-10-07 17:00] VITALS: BP 145/98; PULSE 101; RESP 16; TEMP 36.6; O2SAT 99; BMI 36.4
[2023-10-07 17:53] LABS: Mucous, Urine 0 SEEN /hpf (<or=2+); Red Blood Cells-Urine 0 SEEN /hpf (0-5)
[2023-10-07 18:05] LABS: Color, Urine Yellow (Yellow); Glucose, Dipstick Normal (Normal); Ketone-Dipstick 5 mg/dl (Negative); Leukocyte Esterase-Dipstick Negative /ul (Negative); Nitrite-Dipstick Negative (Negative); Occult Blood-Urine Negative /ul (Negative); Protein-Dipstick Negative (Negative); Urine Bilirubin Dipstick Negative (Negative); Urine Clarity Clear (Clear); Urine Urobilinogen Normal (Normal)
[2023-10-07 18:21] LABS: Bacteria RARE /hpf (None Seen); Squamous Epithelial Cells - UA 0-5 SEEN /hpf (5-10); White Blood Cells 0-5 SEEN /hpf (0-5)
--- NOTE | 2023-10-07 19:41 | CT_ITS ---
EXAM: CT ABDOMEN AND PELVIS WITHOUT INTRAVENOUS CONTRAST CLINICAL INDICATION: Pain TECHNIQUE: Helically acquired images were obtained of the abdomen and pelvis without intravenous contrast. This CT exam was performed using one or more of the following dose reduction techniques: automated exposure control, adjustment of the mA and/or kV according to patient size, and/or use of iterative reconstruction technique. COMPARISON: 09/29/2023 FINDINGS: LOWER THORAX: No significant abnormality. Lung bases are clear. No cardiomegaly. No significant pericardial effusion. ABDOMEN: LIVER: Low-attenuation throughout the liver consistent with fatty infiltration. No focal hepatic abnormality. GALLBLADDER AND BILE DUCTS: No significant abnormality. No calcified gallstones. No gallbladder distention or wall edema. No intra- or extrahepatic biliary ductal dilation. PANCREAS: No significant abnormality. No focal cystic mass. SPLEEN: No significant abnormality. Normal size without focal cystic or solid mass. ADRENALS: No significant abnormality. No nodules. KIDNEYS AND URETERS: No significant abnormality. Normal renal size and position. No hydronephrosis. STOMACH AND BOWEL: No significant abnormality. No stomach or bowel distention. No focal inflammatory change. PELVIS: APPENDIX: No evidence of acute appendicitis. BLADDER: No significant abnormality. REPRODUCTIVE: Normal as visualized. No mass. ABDOMEN and PELVIS: INTRAPERITONEAL SPACE: No significant abnormality. No ascites or other fluid collection. No free air. BONES/JOINTS: No significant abnormality. No suspicious lytic or blastic abnormality. SOFT TISSUES: Small fat-containing umbilical hernia. VASCULATURE: No significant abnormality. Abdominal aorta is non-dilated. LYMPH NODES: No significant abnormality. No enlarged lymph nodes. CT/Abdomen/Pelvis without Cont IMPRESSION: 1. Fatty liver. 2. No acute pathology is identified in the abdomen and pelvis. Electronically Signed: Mirza Rendon DO at 20:53 EST ,
--- NOTE | 2023-10-07 19:42 | EDS_ITS ---
HPI History of Present Illness Chief Complaint: Complaint Narrative Narrative: 33-year-old female past medical history of chronic back pain and lumbar radiculopathy, kidney stones, presents with back pain that began today. She states it is right greater than left. She is having problems moving and getting out of bed. She also states that she was having pain with urination, and she gets frequent urinary tract infections. She has multiple somatic complaints ranging from headaches to back pain. Her main concern though is that she has pain in her back and right flank worse with movement. She took ibuprofen without relief. [facility] Medical History Alcohol use Anxiety Back pain Bilateral renal stones Bipolar disorder Cardiology follow-up encounter Chronic interstitial cystitis Conversion disorder Depression Easy bruising Endometriosis Environmental and seasonal allergies Fatty liver Fibromyalgia Gastric reflux High cholesterol History of cervical cancer History of echocardiogram History of edema History of renal disease History of stress test Hypertension Kidney stone Left renal stone Leg cramps Marijuana use Migraine Peptic ulcer of stomach Restless legs Smoker Syncope Wears dentures Wears glasses Home Medications albuterol sulfate 90 mcg/actuation aerosol inhaler (Ventolin HFA) 2 puff inhalation Q6H PRN Shortness Of Breath 09/22/21 [History Last Taken Unknown] diphenhydramine HCl 50 mg capsule 50 mg PO Q6H PRN Allergic Symptoms 09/22/21 [History Last Taken Unknown] dupilumab 300 mg/2 mL subcutaneous syringe (Dupixent) 300 mg subcut .[id number] 09/22/21 [History Last Taken Unknown] escitalopram oxalate 20 mg tablet (Lexapro) 20 mg PO DAILY 09/22/21 [History Last Taken Unknown] fluticasone propionate 50 mcg/actuation nasal spray,suspension 1 spray intranasal DAILY ALLERGIES 09/22/21 [History Last Taken Unknown] omeprazole 40 mg capsule,delayed release 40 mg PO DAILY 09/22/21 [History Last Taken Unknown] tizanidine 4 mg capsule 4 mg PO Q8H PRN Back Pain 09/22/21 [History Last Taken Unknown] propranolol 10 mg tablet 10 mg PO DAILY BP 12/26/21 [History Last Taken Unknown] quetiapine 50 mg tablet,extended release 24 hr 100 mg PO DAILY 01/30/23 [History Last Taken Unknown] pregabalin 75 mg capsule 75 mg PO Q8H 09/15/23 [History Last Taken Unknown] hydrocodone-acetaminophen 5-325mg 5mg-325mg 1 tab PO Q6H PRN PRN Pain 3 days #10 TABLETS 09/29/23 [Rx Last Taken Unknown] hydrocodone-acetaminophen 5-325mg 5mg-325mg 1 tab PO Q6H PRN PRN Pain 3 days #10 TABLETS 10/07/23 [Rx Last Taken Unknown] Allergy/AdvReac Type Severity Reaction Status Date / Time amitriptyline Allergy MUSCLE Verified 09/29/23 18:01 SPASMS Bleach (Sodium Hypochlorite) Allergy Hives Verified 09/29/23 18:01 codeine Allergy Hives Verified 09/29/23 18:01 ketorolac [From Toradol] Allergy Itching Verified 09/29/23 18:01 nitrofurantoin Allergy Anaphylaxis Verified 09/29/23 18:01 [From Macrodantin] doxycycline AdvReac Vomiting Verified 09/29/23 18:01 Family History Mother Hypertension Migraine Grandmother CVA (cerebral vascular accident) Grandfather Diabetes Father Myocardial infarction Surgical History History of cystoscopy History of hysterectomy Hx of cholecystectomy S/P laparoscopic surgery Social History household members: significant other Smoking Status: Current every day smoker tobacco type: e-cigarettes alcohol intake: current details: occasionally substance use type: does not use caffeine: Yes what type of physical activity do you participate in: walking frequency: 1-2 times per week seatbelt use: always do you feel safe at home: Yes additional social history: Single ROS ROS ED ROS Narrative Constitutional: No fever, no chills. HEENT: No sore throat. No neck pain. No loss of vision. No rhinorrhea. Cardiovascular: No chest pain. No palpitations. No pedal edema. Respiratory: No cough, no shortness of breath. Abdominal: No abdominal pain. No nausea. No vomiting. Genitourinary: No dysuria. No hematuria. Musculoskeletal: No myalgias. No arthralgias. Positive low back pain, right greater than left. Positive flank pain. Neurologic: No headaches. No dizziness. No lightheadedness. Skin: No rash. No change in color. Psychiatric: No depression. No anxiety. EXAM Physical Exam Narrative Exam Narrative: Afebrile. Vital signs noted. HEENT: Normocephalic. Atraumatic. PERRL, EOMI. Neck soft and supple. No point tenderness or step off. Cardiovascular: Regular rate and rhythm. No murmurs, rubs, or gallops appreciated. Respiratory: No tachypnea. Lungs clear to auscultation bilaterally. Gastrointestinal: Abdomen soft, nontender, with normoactive bowel sounds. No rebound or guarding. Neurological: Awake. Alert. Nonfocal, nonlateralizing. Straight leg raising negative bilaterally. EHL intact bilaterally. Skin: No rash. Normal color. No pallor. Musculoskeletal: No pedal edema. Full range of motion extremities. Palpable dorsalis pedis pulses bilaterally. Const Vital Signs: 10/07/23 17:00 Temperature 97.8 F Temperature Source Temporal Pulse Rate 101 H Respiratory Rate 16 Blood Pressure 145/98 H Blood Pressure Mean 113 Pulse Ox 99 Oxygen Delivery Method Room Air MDM MDM MDM Narrative Medical decision making narrative: I have low suspicion for cauda equina. She has no red flag symptoms. Urinalysis was reviewed and shows no evidence of infection. Given that she has had kidney stones in the past causing flank pain, while I think she is probably having exacerbation of her sciatica because it seems more musculoskeletal and worse when she moves, laboratory work was obtained and reviewed. She has a normal white count of 6.6 with hemoglobin normal at 14.4, hematocrit 40.6, jeannie telet count 233. BMP shows normal sodium of 140 chloride slightly elevated at 110 which I think is nonspecific, BUN normal at 8 and creatinine normal at 0.79. I reviewed the CT report which shows no acute process, but she does have fatty liver. In review of her prior ED visits, she used to be in pain management. She states that for her back pain/radicular pain that she usually gets pain meds and rest. She states she was sent in here by her primary care provider. I reviewed her prescription monitoring report as she states that she is not under contract with her pain management physician because he does not write for pain medications. I do feel that her narcotic pain medications in the future should come from her primary care provider or pain management and not the emergency department. She was given 1 [place] here and a prescription written for 10 tablets. I feel she be discharged to follow-up. Disposition is discharged home in stable condition. History & Record Review Discussion w/independent historian: Patient Lab Data Attestation: I reviewed the patient's lab results. Labs: Laboratory Results - last 24 hr 10/07/23 10/07/23 17:37 19:50 WBC 6.6 RBC 4.62 Hgb 14.1 Hct 40.6 MCV 87.9 MCH 30.5 MCHC 34.7 RDW Std Deviation 42.1 RDW Coeff of Romario 13.1 Plt Count 233 MPV 12.3 H Immature Gran % (Auto) 0.200 Neut % (Auto) 54.1 Lymph % (Auto) 38.4 Edgar % (Auto) 5.7 Eos % (Auto) 1.1 Baso % (Auto) 0.5 Absolute Neuts (auto) 3.6 Absolute Lymphs (auto) 2.54 Nucleated RBC % 0 Sodium 140 Potassium 4.1 Chloride 110 H Carbon Dioxide 25.0 Anion Gap 5 BUN 8 Creatinine 0.79 Estim Creat Clear Calc 83.79 Est GFR (MDRD) Af Amer 107 Est GFR (MDRD) Non-Af 89 BUN/Creatinine Ratio 10.1 Glucose 89 Calcium 9.7 Urine Color Yellow Urine Clarity Clear Urine pH 7.0 Ur Specific [place] 1.010 Urine Protein Negative Urine Glucose (UA) Normal Urine Ketones 5 H Urine Occult Blood Negative Urine Nitrite Negative Urine Bilirubin Negative Urine Urobilinogen Normal Ur Leukocyte Esterase Negative Urine RBC 0 SEEN Urine WBC 0-5 SEEN Ur Squamous Epith Cells 0-5 SEEN Urine Bacteria RARE Urine Mucus 0 SEEN Radiography Diagnostic Testing: Clinical Impression(s) from Imaging Studies Abdomen/Pelvis CT 10/07/23 19:41 IMPRESSION: 1. Fatty liver. 2. No acute pathology is identified in the abdomen and pelvis. Electronically Signed: Mirza Rendon DO at 20:53 EST , Discharge Plan Triage Chief Complaint: Complaint Other Complaint: Back ED Provider: Hayder Hudson Dx/Rx/DC Orders Clinical Impression: Back pain, Dysuria Instructions: ED Back Pain (Acute or Chronic), ED Dysuria, Uncertain Cause (Adult) Prescriptions: New hydrocodone-acetaminophen 5-325 mg tablet 1 tab PO Q6H PRN PRN (Reason: Pain) 3 Days Qty: 10 0RF No Action propranolol 10 mg tablet 10 mg PO DAILY diphenhydramine HCl 50 mg Capsule 50 mg PO Q6H PRN (Reason: Allergic Symptoms) omeprazole 40 mg Capsule,Delayed Release(Dr/Ec) 40 mg PO DAILY albuterol sulfate [Ventolin HFA] 90 mcg/actuation Hfa Aerosol Inhaler 2 puff INHALATION Q6H PRN (Reason: Shortness Of Breath) fluticasone propionate 50 mcg/actuation [place],Suspension 1 spray INTRANASAL DAILY escitalopram oxalate [Lexapro] 20 mg Tablet 20 mg PO DAILY tizanidine 4 mg Capsule 4 mg PO Q8H PRN (Reason: Back Pain) Dupixent Syringe 300 mg/2 mL Syringe 300 mg SUBCUT .[id number] Rx Instructions: EVERY 2 WEEKS quetiapine 50 mg tablet extended release 24 hr 100 mg PO DAILY hydrocodone-acetaminophen [hydrocodone-acetaminophen] 5-325 mg tablet 1 tab PO Q6H PRN PRN (Reason: Pain) 3 Days Qty: 10 0RF pregabalin 75 mg capsule 75 mg PO Q8H Patient Comments: TAKE 1 CAPSULE BY MOUTH THREE TIMES DAILY Primary Care Provider: Elizabeth Spear NP Referrals: Elizabeth Spear NP, [employer] [Primary Care Provider] - 1-2 Days if not improving Activity Restrictions/Additional Instructions: Further prescriptions for narcotic pain medications should come from your primary care provider or pain management and not the emergency department Disposition Disposition: Home, Self Care
[2023-10-07] MEDS: Orphenadrine 60 MG/2 ML Ampul IM (19:50)
[2023-10-07 20:13] LABS: Absolute Lymphocyte Count 2.54 X10^3/uL (0.83-4.51); Absolute Neutrophil Count 3.6 X10^3/uL (2.0-7.7); Basophil# 0.03 X10^3/uL; Basophil% 0.5 % (0-1); Eosinophil# 0.07 X10^3/uL; Eosinophils% 1.1 % (0-5); Hematocrit 40.6 % (37-47); Hemoglobin 14.1 g/dL (12.0-15.0); Lymphocyte # 2.54 X10^3/ul (0.83-4.51); Lymphocyte % 38.4 % (19-41); Mean Corp Hgb Conc 34.7 g/dL (32-36); Mean Corpuscular Hgb 30.5 pg (27.0-32.0); Mean Corpuscular Volume 87.9 fL (81-99); Mean Platelet Vol. 12.3 fl (6.2-12.0); Monocyte# 0.38 X10^3/uL; Monocyte% 5.7 % (0-10); NRBC Flagged by Analyzer 0 % (0-5); Neutrophil # 3.59 X10^3/uL (2.7-7.7); Neutrophil % 54.1 % (47-70); Platelet Count 233 K/mm3 (150-450); RBC Distribution Width CV 13.1 % (11.6-14.6); RBC Distribution Width SD 42.1 fl (35.1-43.9); Red Blood Count 4.62 M/mm3 (4.2-5.4); White Blood Count 6.6 K/mm3 (4.4-11.0)
[2023-10-07 20:27] LABS: Anion Gap 5 (5-15); BUN 8 mg/dL (7-18); BUN/Creat Ratio 10.1 RATIO (10-20); Calcium,Total 9.7 mg/dL (8.5-10.1); Chloride 110 mmol/L (98-107); Creatinine, Serum 0.79 mg/dL (0.55-1.02); EST Glomerular Filtration Rate 89 mL/min (>60); Est Glom Filt Rate - Afr Amer 107 mL/min (>60); Estimated Creatinine Clearance 83.79 ml/min; Glucose 89 mg/dL (74-106); Potassium 4.1 mmol/L (3.5-5.1); Sodium Level 140 mmol/L (136-145)
[2023-10-07] MEDS: HYDROcodone Bitartrate/Apap 5/325 Tablet PO (21:30)
[2023-10-07] MEDS: Ondansetron 4 MG/2 ML Vial IV (21:30)
== END 2023-10-07 21:39 | disposition home or self-care (01) ==
PROVIDERS: Emergency Provider Emergency Medicine; PCP Nurse Practitioner Primary Care; Visit Provider Emergency Medicine
DX: M54.9 Dorsalgia, unspecified (principal); R30.0 Dysuria; K76.0 Fatty (change of) liver, not elsewhere classified; F17.290 Nicotine dependence, other tobacco product, uncomplicated; G89.29 Other chronic pain
CPT/HCPCS: 74176; 80048; 81001; 85025; 96372; 96374; 99284; A4216; J2405

== ENCOUNTER 2023-10-14 18:11 | Emergency (ER) | payer MEDICAID, SELFPAY ==
[2023-10-14 18:12] VITALS: BP 151/100; PULSE 96; RESP 18; TEMP 36.1; O2SAT 97; BMI 36.5
[2023-10-14] MEDS: Ondansetron 4 MG/2 ML Vial IV (18:31)
--- NOTE | 2023-10-14 18:32 | EDS_ITS ---
HPI <MER Henry - Last Filed: 10/14/23 20:13> HPI - Female History of Present Illness Chief Complaint: Vag Bleeding Narrative Narrative: Patient presenting today with multiple vague complaints. She reports that she has had vaginal bleeding since Thursday. She has had to change her pad a few times each day, and has only had to change it once today. She reports a history of a total hysterectomy in 2014. She also reports that she has had dysuria and increased urinary frequency over the past few days, a few episodes of vomiting, and right upper quadrant abdominal pain. She reports that she did have an MRI of her abdomen on Thursday due to her chronic right upper quadrant pain and results showed an enlarged spleen and liver with no evidence of cirrhosis. She has had a few episodes of loose stool today. She denies any fever, chills, hematemesis, and melena/hematochezia. [facility] <MER Henry - Last Filed: 10/14/23 20:13> [facility] Medical History Alcohol use Anxiety Back pain Bilateral renal stones Bipolar disorder Cardiology follow-up encounter Chronic interstitial cystitis Conversion disorder Depression Easy bruising Endometriosis Environmental and seasonal allergies Fatty liver Fibromyalgia Gastric reflux High cholesterol History of cervical cancer History of echocardiogram History of edema History of renal disease History of stress test Hypertension Kidney stone Left renal stone Leg cramps Marijuana use Migraine Peptic ulcer of stomach Restless legs Smoker Syncope Wears dentures Wears glasses Home Medications albuterol sulfate 90 mcg/actuation aerosol inhaler (Ventolin HFA) 2 puff inhala tion Q6H PRN Shortness Of Breath 09/22/21 [History Last Taken Unknown] diphenhydramine HCl 50 mg capsule 50 mg PO Q6H PRN Allergic Symptoms 09/22/21 [History Last Taken Unknown] dupilumab 300 mg/2 mL subcutaneous syringe (Dupixent) 300 mg subcut .[id number] 09/22/21 [History Last Taken Unknown] escitalopram oxalate 20 mg tablet (Lexapro) 20 mg PO DAILY 09/22/21 [History Last Taken Unknown] fluticasone propionate 50 mcg/actuation nasal spray,suspension 1 spray intranasal DAILY ALLERGIES 09/22/21 [History Last Taken Unknown] omeprazole 40 mg capsule,delayed release 40 mg PO DAILY 09/22/21 [History Last Taken Unknown] tizanidine 4 mg capsule 4 mg PO Q8H PRN Back Pain 09/22/21 [History Last Taken Unknown] propranolol 10 mg tablet 10 mg PO DAILY BP 12/26/21 [History Last Taken Unknown] quetiapine 50 mg tablet,extended release 24 hr 100 mg PO DAILY 01/30/23 [History Last Taken Unknown] pregabalin 75 mg capsule 75 mg PO Q8H 09/15/23 [History Last Taken Unknown] hydrocodone-acetaminophen 5-325mg 5mg-325mg 1 tab PO Q6H PRN PRN Pain 3 days #10 TABLETS 09/29/23 [Rx Last Taken Unknown] hydrocodone-acetaminophen 5-325mg 5mg-325mg 1 tab PO Q6H PRN PRN Pain 3 days #10 TABLETS 10/07/23 [Rx Last Taken Unknown] Allergy/AdvReac Type Severity Reaction Status Date / Time amitriptyline Allergy MUSCLE Verified 10/14/23 18:15 SPASMS Bleach (Sodium Hypochlorite) Allergy Hives Verified 10/14/23 18:15 codeine Allergy Hives Verified 10/14/23 18:15 ketorolac [From Toradol] Allergy Itching Verified 10/14/23 18:15 nitrofurantoin Allergy Anaphylaxis Verified 10/14/23 18:15 [From Macrodantin] doxycycline AdvReac Vomiting Verified 10/14/23 18:15 Family History Mother Hypertension Migraine Grandmother CVA (cerebral vascular accident) Grandfather Diabetes Father Myocardial infarction Surgical History History of cystoscopy History of hysterectomy Hx of cholecystectomy S/P laparoscopic surgery Social History household members: significant other Smoking Status: Current every day smoker tobacco type: e-cigarettes alcohol intake: current details: occasionally substance use type: does not use caffeine: Yes what type of physical activity do you participate in: walking frequency: 1-2 times per week seatbelt use: always do you feel safe at home: Yes additional social history: Single ROS <MER Henry - Last Filed: 10/14/23 20:13> ROS ED Constitutional Constitutional ED: Denies chills or fever(s) Cardiovascular Cardiovascular: Denies chest pain Respiratory/Chest Respiratory/Chest: Denies cough or dyspnea Gastrointestinal Gastrointestinal: Reports abdominal pain, diarrhea, nausea and vomiting Genitourinary Genitourinary ED: Reports dysuria and urinary urgency Musculoskeletal Musculoskeletal: Denies arthralgias or myalgias Integumentary Denies rash Neurologic Neurologic: Denies weakness EXAM <MER Henry - Last Filed: 10/14/23 20:13> Physical Exam Const Vital Signs: 10/14/23 18:12 Temperature 97 F L Temperature Source Temporal Pulse Rate 96 Respiratory Rate 18 Blood Pressure 151/100 H Blood Pressure Mean 117 Pulse Ox 97 Oxygen Delivery Method Room Air Positive well nourished, well developed and no apparent distress General Appearance ED: well developed HEENT Reports normocephalic and head/scalp atraumatic Mouth ED: Yes moist mucous membranes normal Eyes PERRL and EOMs intact bilaterally Neck full ROM and supple Chest Wall inspection of chest normal Resp normal respiratory effort and clear to auscultation bilaterally Cardio regular rate and regular rhythm GI soft to palpation, non-distended and no masses GI Narrative: Minimal tenderness to palpation to the right upper quadrant without any rigidity, guarding, or peritoneal signs. Narrative: External genitalia without excoriations or lesions, internal speculum examination shows no bleeding or lesions. Back/Spine normal ROM and normal to inspection Extremity normal to inspection and full ROM Neuro oriented x3, CN's II-XII intact bilaterally, moves all extremities, no focal motor deficits and no sensory deficits noted Sensorium / Orientation: awake and alert Psych mental status grossly normal and thought process normal Skin no rashes or lesions noted and no wounds <Dr. Gage Joya, DO - Last Filed: 10/14/23 19:14> Physical Exam Const Vital Signs: 10/14/23 18:12 Temperature 97 F L Temperature Source Temporal Pulse Rate 96 Respiratory Rate 18 Blood Pressure 151/100 H Blood Pressure Mean 117 Pulse Ox 97 Oxygen Delivery Method Room Air MDM <MER Henry - Last Filed: 10/14/23 20:13> MDM MDM Narrative Medical decision making narrative: Patient presenting due to multiple complaints. She reports vaginal bleeding since Thursday. Speculum examination performed and I am not appreciating any vaginal bleeding. There is no residual blood in the vaginal canal. Patient also did have a pad in place that did not have any blood on it. H&H are stable at 12.9 and 39.0. I did encourage her to follow-up with her watch commander. She also reports right upper quadrant pain, when reviewing previous records, patient appears to have chronic right-sided abdominal pain and has been seen in this emergency department several times for similar symptoms. Abdominal exam is unremarkable here and patient just had an MRI of her abdomen performed on Thursday, I do not think that any additional imaging is indicated at this time. Patient did ask multiple times from both me, the attending, and the nurse for pain medication. I did offer to give her Tylenol and Bentyl, but she reports that she already took these before she came in and they do not help. She did ask for something stronger. Patient has received multiple prescription narcotics from our ED, I do not think that a prescription is indicated at this time. I did offer 1 dose of [place] here for her pain. I did encourage that she follow-up with pain management and have given her a referral. She is also to follow-up with her PCP. UA was negative for UTI. AST 56, ALT 61, alkaline phosphatase 135, this is consistent with previous labs. Patient does have a history of nonalcoholic fatty liver disease. Patient will be discharged home in stable condition and is comfortable with plan. Lab Data Attestation: I reviewed the patient's lab results. Labs: Laboratory Results - last 24 hr 10/14/23 10/14/23 18:32 18:40 WBC 7.9 RBC 4.38 Hgb 12.9 Hct 39.0 MCV 89.0 MCH 29.5 MCHC 33.1 RDW Std Deviation 42.5 RDW Coeff of Romario 13.0 Plt Count 230 MPV 11.6 Immature Gran % (Auto) 0.500 Neut % (Auto) 66.9 Lymph % (Auto) 27.5 [place] % (Auto) 4.2 Eos % (Auto) 0.5 Baso % (Auto) 0.4 Absolute Neuts (auto) 5.3 Absolute Lymphs (auto) 2.16 Nucleated RBC % 0 Sodium 143 Potassium 4.2 Chloride 108 H Carbon Dioxide 24.0 Anion Gap 11 BUN 9 Creatinine 0.83 Estim Creat Clear Calc 79.75 Est GFR (MDRD) Af Amer 101 Est GFR (MDRD) Non-Af 84 BUN/Creatinine Ratio 10.8 Glucose 104 Calcium 9.4 Total Bilirubin 0.30 AST 56 H ALT 61 H Alkaline Phosphatase 135 H Total Protein 7.9 Albumin 4.0 Globulin 3.9 Albumin/Globulin Ratio 1.0 Lipase 32 Urine Color Yellow Urine Clarity Sl. Cloudy Urine pH 7.0 Ur Specific [place]roberts 1.010 Urine Protein Negative Urine Glucose (UA) Normal Urine Ketones Negative Urine Occult Blood Negative Urine Nitrite Negative Urine Bilirubin Negative Urine Urobilinogen Normal Ur Leukocyte Esterase Negative Urine RBC 0 SEEN Urine WBC 0-5 SEEN Ur Squamous Epith Cells 5-10 SEEN Urine Bacteria 1+ Urine Mucus 0 SEEN <Dr. Gage Joya, DO - Last Filed: 10/14/23 19:14> [facility] Lab Data Labs: Laboratory Results - last 24 hr 10/14/23 10/14/23 18:32 18:40 WBC 7.9 RBC 4.38 Hgb 12.9 Hct 39.0 MCV 89.0 MCH 29.5 MCHC 33.1 RDW Std Deviation 42.5 RDW Coeff of Romario 13.0 Plt Count 230 MPV 11.6 Immature Gran % (Auto) 0.500 Neut % (Auto) 66.9 Lymph % (Auto) 27.5 Fin[place] % (Auto) 4.2 Eos % (Auto) 0.5 Baso % (Auto) 0.4 Absolute Neuts (auto) 5.3 Absolute Lymphs (auto) 2.16 Nucleated RBC % 0 Sodium 143 Potassium 4.2 Chloride 108 H Carbon Dioxide 24.0 Anion Gap 11 BUN 9 Creatinine 0.83 Estim Creat Clear Calc 79.75 Est GFR (MDRD) Af Amer 101 Est GFR (MDRD) Non-Af 84 BUN/Creatinine Ratio 10.8 Glucose 104 Calcium 9.4 Total Bilirubin 0.30 AST 56 H ALT 61 H Alkaline Phosphatase 135 H Total Protein 7.9 Albumin 4.0 Globulin 3.9 Albumin/Globulin Ratio 1.0 Lipase 32 Urine Color Yellow Urine Clarity Sl. Cloudy Urine pH 7.0 Ur Specific [place]roberts 1.010 Urine Protein Negative Urine Glucose (UA) Normal Urine Ketones Negative Urine Occult Blood Negative Urine Nitrite Negative Urine Bilirubin Negative Urine Urobilinogen Normal Ur Leukocyte Esterase Negative Urine RBC 0 SEEN Urine WBC 0-5 SEEN Ur Squamous Epith Cells 5-10 SEEN Urine Bacteria 1+ Urine Mucus 0 SEEN Treatment and Re-Evaluation Narrative: I have personally performed a face to face assessment of the patient and have reviewed the NANCY Note. I performed a substantive portion of the visit including all aspects of the following. My swartz findings include: History: Patient presents with abdominal pain and vaginal bleeding that became worse over the past couple days. Patient states her bleeding is intermittent. Patient states she has had a hysterectomy. Patient states her pain is mainly over the right side of her abdomen. Patient denies any dysuria or hematuria. Patient denies any fevers or chills. Patient denies any nausea or vomiting. Exam: Vital signs are stable. Patient is afebrile. Patient is in no acute distress. Oral mucosa is pink and moist. Neck is supple. Trachea is midline. There is no JVD. Heart was regular rate and rhythm. Lungs are clear and equal bilaterally. Abdomen is soft. Bowel sounds are normal. There are some mild right upper and right lower abdominal tenderness. There is no rebound or guarding noted. Cranial nerves II through XII are intact. There are no focal motor or sensory deficits noted. Medical Decision Making: Differential diagnosis includes ureteral calculus, urinary tract infection, pancreatitis, cholecystitis, cholelithiasis, and abnormal vaginal bleeding. CBC will be obtained to assess for leukocytosis and anemia. Comprehensive metabolic profile will be obtained to assess for hepatic function, renal function, and electrolyte abnormality. Lipase will be obtained to assess for pancreatitis. Urinalysis will be obtained to assess for urinary tract infection and hematuria. Pelvic exam was performed by NANCY under my supervision. There is no vaginal bleeding noted. CBC was reviewed and was within normal limits. Comprehensive metabolic profile was reviewed. AST was 56, ALT was 61, alkaline phosphatase was 135. These are consistent with prior results. The remainder was within normal limits. Urinalysis was reviewed. There are 5-10 epithelial cells. There is no evidence of urinary tract infection or hematuria. Patient was advised of her findings. Patient was instructed to follow-up with her primary care physician and [employer] in 5 to 7 days. Patient understood and was agreeable with the plan. All questions were answered. Discharge Plan Triage Chief Complaint: Vag Bleeding Other Complaint: Female C/O ED Midlevel Provider: Chanel Mccallum ED Provider: Gage Joya Dx/Rx/DC Orders Clinical Impression: Dysuria, Chronic abdominal pain, Vaginal bleeding Instructions: Abdominal Pain Prescriptions: No Action propranolol 10 mg tablet 10 mg PO DAILY diphenhydramine HCl 50 mg Capsule 50 mg PO Q6H PRN (Reason: Allergic Symptoms) omeprazole 40 mg Capsule,Delayed Release(Dr/Ec) 40 mg PO DAILY albuterol sulfate [Ventolin HFA] 90 mcg/actuation Hfa Aerosol Inhaler 2 puff INHALATION Q6H PRN (Reason: Shortness Of Breath) fluticasone propionate 50 mcg/actuation [place],Suspension 1 spray INTRANASAL DAILY escitalopram oxalate [Lexapro] 20 mg Tablet 20 mg PO DAILY tizanidine 4 mg Capsule 4 mg PO Q8H PRN (Reason: Back Pain) Dupixent Syringe 300 mg/2 mL Syringe 300 mg SUBCUT .[id number] Rx Instructions: EVERY 2 WEEKS quetiapine 50 mg tablet extended release 24 hr 100 mg PO DAILY hydrocodone-acetaminophen [hydrocodone-acetaminophen] 5-325 mg tablet 1 tab PO Q6H PRN PRN (Reason: Pain) 3 Days Qty: 10 0RF hydrocodone-acetaminophen 5-325 mg tablet 1 tab PO Q6H PRN PRN (Reason: Pain) 3 Days Qty: 10 0RF pregabalin 75 mg capsule 75 mg PO Q8H Patient Comments: TAKE 1 CAPSULE BY MOUTH THREE TIMES DAILY Primary Care Provider: Elizabeth Spear NP Referrals: Bob Sanders MD [Med Staff - Active Staff] - 1 Week Elizabeth Spear NP, [facility] [Primary Care Provider] - 3-5 Days Activity Restrictions/Additional Instructions: Follow-up with your PCP and pain management. Disposition Disposition: Home, Self Care Discharge Date/Time: 10/14/23 19:29
[2023-10-14 18:37] LABS: Absolute Lymphocyte Count 2.16 X10^3/uL (0.83-4.51); Absolute Neutrophil Count 5.3 X10^3/uL (2.0-7.7); Basophil# 0.03 X10^3/uL; Basophil% 0.4 % (0-1); Eosinophil# 0.04 X10^3/uL; Eosinophils% 0.5 % (0-5); Hemoglobin 12.9 g/dL (12.0-15.0); Lymphocyte # 2.16 X10^3/ul (0.83-4.51); Lymphocyte % 27.5 % (19-41); Mean Corp Hgb Conc 33.1 g/dL (32-36); Mean Corpuscular Hgb 29.5 pg (27.0-32.0); Mean Platelet Vol. 11.6 fl (6.2-12.0); Monocyte# 0.33 X10^3/uL; Monocyte% 4.2 % (0-10); NRBC Flagged by Analyzer 0 % (0-5); Neutrophil # 5.25 X10^3/uL (2.7-7.7); Neutrophil % 66.9 % (47-70); Platelet Count 230 K/mm3 (150-450); RBC Distribution Width SD 42.5 fl (35.1-43.9); Red Blood Count 4.38 M/mm3 (4.2-5.4); White Blood Count 7.9 K/mm3 (4.4-11.0)
[2023-10-14 18:50] LABS: Mucous, Urine 0 SEEN /hpf (<or=2+); Red Blood Cells-Urine 0 SEEN /hpf (0-5)
[2023-10-14 18:51] LABS: Color, Urine Yellow (Yellow); Glucose, Dipstick Normal (Normal); Ketone-Dipstick Negative (Negative); Leukocyte Esterase-Dipstick Negative /ul (Negative); Nitrite-Dipstick Negative (Negative); Occult Blood-Urine Negative /ul (Negative); Protein-Dipstick Negative (Negative); Urine Bilirubin Dipstick Negative (Negative); Urine Clarity Sl. Cloudy (Clear); Urine Urobilinogen Normal (Normal)
[2023-10-14 18:54] LABS: AST(SGOT) 56 U/L (15-37); Alanine Aminotransfer ALT/SGPT 61 U/L (13-56); Alkaline Phosphatase 135 U/L (45-117); Anion Gap 11 (5-15); BUN 9 mg/dL (7-18); BUN/Creat Ratio 10.8 RATIO (10-20); Calcium,Total 9.4 mg/dL (8.5-10.1); Chloride 108 mmol/L (98-107); Creatinine, Serum 0.83 mg/dL (0.55-1.02); EST Glomerular Filtration Rate 84 mL/min (>60); Est Glom Filt Rate - Afr Amer 101 mL/min (>60); Estimated Creatinine Clearance 79.75 ml/min; Globulin 3.9 g/dL (2.2-4.2); Glucose 104 mg/dL (74-106); Lipase 32 U/L (13-75); Potassium 4.2 mmol/L (3.5-5.1); Protein, Total 7.9 g/dL (6.4-8.2); Sodium Level 143 mmol/L (136-145)
[2023-10-14 18:59] LABS: Bacteria 1+ /hpf (None Seen); Squamous Epithelial Cells - UA 5-10 SEEN /hpf (5-10); White Blood Cells 0-5 SEEN /hpf (0-5)
[2023-10-14] MEDS: HYDROcodone Bitartrate/Apap 5/325 Tablet PO (19:22)
== END 2023-10-14 19:29 | disposition home or self-care (01) ==
PROVIDERS: Physician Assistant; Emergency Provider Emergency Medicine; PCP Nurse Practitioner Primary Care; Visit Provider Emergency Medicine
DX: R30.0 Dysuria (principal); R10.9 Unspecified abdominal pain; G89.29 Other chronic pain; N93.9 Abnormal uterine and vaginal bleeding, unspecified; F17.290 Nicotine dependence, other tobacco product, uncomplicated
CPT/HCPCS: 80053; 81001; 83690; 85025; 96374; 99283; A4216; J2405

== ENCOUNTER 2023-10-19 17:58 | Emergency (ER) | payer MEDICAID, SELFPAY ==
[2023-10-19 18:00] VITALS: BP 138/93; PULSE 108; RESP 18; TEMP 36.1; O2SAT 99; BMI 37.0
[2023-10-19 18:02] VITALS: BP 138/93; PULSE 108; RESP 18; TEMP 36.1; O2SAT 99
--- NOTE | 2023-10-19 18:12 | CT_ITS ---
STUDY: CT ABDOMEN AND PELVIS WITH CONTRAST REASON FOR EXAM: Female, 33 years old. left upper abdomen pain radiating to left shoulder RADIATION DOSAGE (If Supplied By Facility): CTDIvol = ( 24.99 ) mGy, DLP = ( 1219.29 ) mGycm TECHNIQUE: Transaxial images were obtained from the dome of the diaphragm to the symphysis pubis without oral contrast. IV 100mL Isovue-370 was administered. Sagittal and coronal images were reconstructed. Individualized dose optimization techniques were used for this CT. COMPARISON: 10/07/2023. FINDINGS: The visualized lung bases are unremarkable. The visualized portions of the heart are within normal limits. There is decreased attenuation of the liver consistent with steatosis. There is non-visualization of the gallbladder, which may be secondary to either contraction or a prior cholecystectomy. Normal spleen. Normal pancreas. Normal bilateral adrenal glands. Normal right kidney. Normal left kidney. Normal visualized stomach. Normal small intestine. Moderate to abundant fecal debris within the colon suggestive of mild constipation. The appendix is visualized and appears normal. Normal abdominal aorta. Normal inferior vena cava. Normal retroperitoneum. Normal urinary bladder. There is absence of the uterus consistent with a prior hysterectomy. Tiny fat-containing umbilical hernia. Normal osseous structures. CT/Abdomen/Pelvis W IV Cont ONLY IMPRESSION: Possible mild constipation. No acute appendicitis or bowel obstruction. Diffuse fatty liver, otherwise unremarkable abdominal viscera. Electronically Signed: Felicia Smith MD at 19:16 EST ,
--- NOTE | 2023-10-19 18:13 | ED.VIS.GI ---
HPI HPI - GI History of Present Illness Chief Complaint: Abd Pain Detail of Chief Complaint: Abdominal pain Informant: patient Narrative Narrative: Patient presents with left upper quadrant abdominal pain that started gradually this morning. Pain radiates to her left shoulder and chest. She complains of nausea and she did vomit once prior to coming the emergency department. Patient tells me that she had an MRI at another facility 1 week ago today that showed an enlarged spleen and liver. Patient denies fevers or chills. She denies cough or sore throat. She has had prior gallbladder removed and prior hysterectomy. Patient has history of kidney stones. Patient thinks this pain is different than kidney stone. She denies recent travel or surgery. No history of PE or DVT. [facility] Medical History Alcohol use Anxiety Back pain Bilateral renal stones Bipolar disorder Cardiology follow-up encounter Chronic interstitial cystitis Conversion disorder Depression Easy bruising Endometriosis Environmental and seasonal allergies Fatty liver Fibromyalgia Gastric reflux High cholesterol History of cervical cancer History of echocardiogram History of edema History of renal disease History of stress test Hypertension Kidney stone Left renal stone Leg cramps Marijuana use Migraine Peptic ulcer of stomach Restless legs Smoker Syncope Wears dentures Wears glasses Home Medications albuterol sulfate 90 mcg/actuation aerosol inhaler (Ventolin HFA) 2 puff inhalation Q6H PRN Shortness Of Breath 09/22/21 [History Last Taken Unknown] diphenhydramine HCl 50 mg capsule 50 mg PO Q6H PRN Allergic Symptoms 09/22/21 [History Last Taken Unknown] dupilumab 300 mg/2 mL subcutaneous syringe (Dupixent) 300 mg subcut .[id number] 09/22/21 [History Last Taken Unknown] escitalopram oxalate 20 mg tablet (Lexapro) 20 mg PO DAILY 09/22/21 [History Last Taken Unknown] fluticasone propionate 50 mcg/actuation nasal spray,suspension 1 spray intranasal DAILY ALLERGIES 09/22/21 [History Last Taken Unknown] omeprazole 40 mg capsule,delayed release 40 mg PO DAILY 09/22/21 [History Last Taken Unknown] tizanidine 4 mg capsule 4 mg PO Q8H PRN Back Pain 09/22/21 [History Last Taken Unknown] propranolol 10 mg tablet 10 mg PO DAILY BP 12/26/21 [History Last Taken Unknown] quetiapine 50 mg tablet,extended release 24 hr 100 mg PO DAILY 01/30/23 [History Last Taken Unknown] pregabalin 75 mg capsule 75 mg PO Q8H 09/15/23 [History Last Taken Unknown] hydrocodone-acetaminophen 5-325mg 5mg-325mg 1 tab PO Q6H PRN PRN Pain 3 days #10 TABLETS 09/29/23 [Rx Last Taken Unknown] hydrocodone-acetaminophen 5-325mg 5mg-325mg 1 tab PO Q6H PRN PRN Pain 3 days #10 TABLETS 10/07/23 [Rx Last Taken Unknown] cephalexin 500 mg capsule 500 mg PO Q6 #28 CAPSULES 10/19/23 [Rx Last Taken Unknown] Allergy/AdvReac Type Severity Reaction Status Date / Time amitriptyline Allergy MUSCLE Verified 10/19/23 18:03 SPASMS Bleach (Sodium Hypochlorite) Allergy Hives Verified 10/19/23 18:03 codeine Allergy Hives Verified 10/19/23 18:03 ketorolac [From Toradol] Allergy Itching Verified 10/19/23 18:03 nitrofurantoin Allergy Anaphylaxis Verified 10/14/23 18:15 [From Macrodantin] doxycycline AdvReac Vomiting Verified 10/19/23 18:03 Family History Mother Hypertension Migraine Grandmother CVA (cerebral vascular accident) Grandfather Diabetes Father Myocardial infarction Surgical History History of cystoscopy History of hysterectomy Hx of cholecystectomy S/P laparoscopic surgery Social History household members: significant other Smoking Status: Current every day smoker tobacco type: e-cigarettes alcohol intake: current details: occasionally substance use type: does not use caffeine: Yes what type of physical activity do you participate in: walking frequency: 1-2 times per week seatbelt use: always do you feel safe at home: Yes additional social history: Single ROS ROS ED Review of Systems ROS Unobtainable: other Constitutional Constitutional ED: Reports lethargy; Denies chills, fever(s), sweats or weight loss Eyes Eyes: Denies blurry vision, change in vision or diplopia ENT ENT ED: Denies rhinorrhea or sore throat Cardiovascular Cardiovascular: Reports chest pain; Denies orthopnea or racing heartbeat Respiratory/Chest Respiratory/Chest: Denies cough, dyspnea, dyspnea on exertion, orthopnea or sputum Gastrointestinal Gastrointestinal: Reports abdominal pain; Denies diarrhea, nausea or vomiting Genitourinary Genitourinary ED: Denies dysuria, hematuria or urinary frequency Musculoskeletal Musculoskeletal: Denies arthralgias, back pain, myalgias or neck pain Integumentary Denies abscess, Abrasions or rash Neurologic Neurologic: Denies headache(s) or weakness Psychiatric Psychiatric: Denies anxiety, depression or suicidal thoughts Endocrine Endocrinology: Denies polydipsia, polyphagia or polyuria Hematologic/Lymphatic Hematologic/Lymphatic: Denies easy bleeding, easy bruising or lymphadenopathy Allergic/Immunologic Allergic/Immunologic ED: Denies mouth swelling, tongue swelling or urticaria EXAM Physical Exam Const Vital Signs: 10/19/23 18:00 10/19/23 18:02 10/19/23 19:54 Temperature 96.9 F L 96.9 F L Temperature Source Temporal Temporal Pulse Rate 108 H 108 H 90 Respiratory Rate 18 18 16 Blood Pressure 138/93 H 138/93 H 155/65 H Blood Pressure Mean 108 108 95 Pulse Ox 99 99 93 Oxygen Delivery Method Room Air Room Air Positive well nourished and well developed General Appearance ED: well developed and NAD HEENT Reports TM's clear and moist mucous membranes normocephalic and atraumatic; Negative for trauma or tenderness Tympanic Membrane ED: Yes TM's clear Eyes PERRL and EOMs intact bilaterally General Eye ED: Negative for pale conjunctiva or scleral icterus Neck no lymphadenopathy, supple and no JVD General: Negative for tenderness Chest Wall inspection of chest normal and palpation of chest normal Chest: Negative for tenderness Resp normal respiratory effort and clear to auscultation bilaterally Effort and Inspection: Negative for respiratory distress or pain with movement Auscultation: Negative for rhonchi, wheezes or diminished lung sounds Cardio regular rate, regular rhythm, S1 normal heart sound, S2 normal heart sound and no murmurs Peripheral Pulses: pulses 2+ throughout GI normal to inspection, nondistended, normoactive bowel sounds, soft to palpation, non-distended and no masses GI Narrative: Tenderness palpation over the left upper quadrant with guarding. There is no rebound, rigidity, or peritoneal signs. No discoloration to the abdominal wall noted. Back/Spine no CVA tenderness and no thoracic nor lumbar tenderness Extremity normal to inspection General Extremety ED: Negative for edema General Extremity: Negative for edema Neuro oriented x3, CN's II-XII intact bilaterally, no sensory deficits noted and gait normal Sensorium / Orientation: awake, alert, oriented to person, oriented to place and oriented to time Motor Exam: strength 5/5 throughout and strength abnormal Psych mental status grossly normal Skin no rashes or lesions noted and no wounds MDM MDM MDM Narrative Medical decision making narrative: Patient presents with left upper abdomen pain since this morning. She describes the pain as radiating to the left shoulder and left chest. Patient tells me she had an MRI a week ago that showed enlargement of the spleen and liver. In the differential would be splenic rupture versus bowel obstruction versus bowel perforation. Less likely at this point would be kidney stone or UTI. IV line established. CBC with differential obtained showing a 7.2 with hemoglobin 13 and platelet count of 226. CT scan with IV contrast of the abdomen pelvis essentially unremarkable. Discussed results with patient. This point etiology of her pain is unclear if she has history of chronic abdominal pain that she has had for years. She understands I cannot give her any narcotics for home. Will give her 1 dose of morphine before she leaves. She is advised to follow-up with her primary care physician whom she has an appointment see this week. Also will refer to GI locally for follow-up if her symptoms persist. Patient on the urinalysis does have signs of UTI. Will treat with Keflex. Will send off a urine culture. She has Pyridium at home. Lab Data Attestation: I reviewed the patient's lab results. Labs: Laboratory Results - last 24 hr 10/19/23 10/19/23 06:35 18:25 WBC 7.2 RBC 4.30 Hgb 13.0 Hct 39.0 MCV 90.7 MCH 30.2 MCHC 33.3 RDW Std Deviation 44.4 H RDW Coeff of [place] 13.4 Plt Count 226 MPV 11.4 Immature Gran % (Auto) 0.400 Neut % (Auto) 63.1 Lymph % (Auto) 31.0 [place] % (Auto) 4.8 Eos % (Auto) 0.4 Baso % (Auto) 0.3 Absolute Neuts (auto) 4.5 Absolute Lymphs (auto) 2.22 Nucleated RBC % 0 Sodium 140 Potassium 4.3 Chloride 109 H Carbon Dioxide 24.0 Anion Gap 7 BUN 15 Creatinine 0.92 Estim Creat Clear Calc 71.95 Est GFR (MDRD) Af Amer 90 Est GFR (MDRD) Non-Af 74 BUN/Creatinine Ratio 16.3 Glucose 124 H Calcium 9.5 Total Bilirubin 0.30 AST 49 H ALT 53 Alkaline Phosphatase 146 H Total Protein 8.1 Albumin 4.0 Globulin 4.1 Albumin/Globulin Ratio 1.0 Lipase 59 Urine Color Yellow Urine Clarity Sl. Cloudy Urine pH 7.0 Ur Specific [place] 1.010 Urine Protein Negative Urine Glucose (UA) Normal Urine Ketones Negative Urine Occult Blood 25 H Urine Nitrite Negative Urine Bilirubin Negative Urine Urobilinogen Normal Ur Leukocyte Esterase 500 H Urine RBC 0-5 SEEN Urine WBC 25-50 SEEN Ur Squamous Epith Cells 5-10 SEEN Urine Bacteria 1+ Urine Mucus 0 SEEN Radiography Diagnostic Testing: Clinical Impression(s) from Imaging Studies Abdomen/Pelvis CT 10/19/23 18:12 IMPRESSION: Possible mild constipation. No acute appendicitis or bowel obstruction. Diffuse fatty liver, otherwise unremarkable abdominal viscera. Electronically Signed: Felicia Smith MD at 19:16 EST , Discharge Plan Triage Chief Complaint: Abd Pain ED Provider: Jm Ansari Dx/Rx/DC Orders Clinical Impression: UTI (urinary tract infection), Abdominal pain Instructions: ED Abdominal Pain Unkn Cause Fem, ED Cystitis Female Adult Prescriptions: New cephalexin [cephalexin] 500 mg capsule 500 mg PO Q6 Qty: 28 0RF No Action propranolol 10 mg tablet 10 mg PO DAILY diphenhydramine HCl 50 mg Capsule 50 mg PO Q6H PRN (Reason: Allergic Symptoms) omeprazole 40 mg Capsule,Delayed Release(Dr/Ec) 40 mg PO DAILY albuterol sulfate [Ventolin HFA] 90 mcg/actuation Hfa Aerosol Inhaler 2 puff INHALATION Q6H PRN (Reason: Shortness Of Breath) fluticasone propionate 50 mcg/actuation [place],Suspension 1 spray INTRANASAL DAILY escitalopram oxalate [Lexapro] 20 mg Tablet 20 mg PO DAILY tizanidine 4 mg Capsule 4 mg PO Q8H PRN (Reason: Back Pain) Dupixent Syringe 300 mg/2 mL Syringe 300 mg SUBCUT .[id number] Rx Instructions: EVERY 2 WEEKS quetiapine 50 mg tablet extended release 24 hr 100 mg PO DAILY hydrocodone-acetaminophen [hydrocodone-acetaminophen] 5-325 mg tablet 1 tab PO Q6H PRN PRN (Reason: Pain) 3 Days Qty: 10 0RF hydrocodone-acetaminophen 5-325 mg tablet 1 tab PO Q6H PRN PRN (Reason: Pain) 3 Days Qty: 10 0RF pregabalin 75 mg capsule 75 mg PO Q8H Patient Comments: TAKE 1 CAPSULE BY MOUTH THREE TIMES DAILY Primary Care Provider: Elizabeth Spear NP Referrals: Cheikh Oconnor DO [Med Staff - Active Staff] - 3-5 Days Elizabeth Spear NP, [employer] [Primary Care Provider] - Disposition Disposition: Home, Self Care Discharge Date/Time: 10/19/23 20:35
[2023-10-19] MEDS: Ondansetron 4 MG/2 ML Vial IV (18:25)
[2023-10-19] MEDS: 0.9% Normal Saline (1000mL) 1,000 ML 125 ML IV (18:25)
[2023-10-19] MEDS: Morphine 4 MG/ML Syringe IV ×2 (18:26→19:41)
[2023-10-19 18:35] LABS: Absolute Lymphocyte Count 2.22 X10^3/uL (0.83-4.51); Absolute Neutrophil Count 4.5 X10^3/uL (2.0-7.7); Basophil# 0.02 X10^3/uL; Basophil% 0.3 % (0-1); Eosinophil# 0.03 X10^3/uL; Eosinophils% 0.4 % (0-5); Lymphocyte # 2.22 X10^3/ul (0.83-4.51); Mean Corp Hgb Conc 33.3 g/dL (32-36); Mean Corpuscular Hgb 30.2 pg (27.0-32.0); Mean Corpuscular Volume 90.7 fL (81-99); Mean Platelet Vol. 11.4 fl (6.2-12.0); Monocyte# 0.34 X10^3/uL; Monocyte% 4.8 % (0-10); NRBC Flagged by Analyzer 0 % (0-5); Neutrophil # 4.51 X10^3/uL (2.7-7.7); Neutrophil % 63.1 % (47-70); Platelet Count 226 K/mm3 (150-450); RBC Distribution Width CV 13.4 % (11.6-14.6); RBC Distribution Width SD 44.4 fl (35.1-43.9); White Blood Count 7.2 K/mm3 (4.4-11.0)
[2023-10-19 18:43] LABS: Mucous, Urine 0 SEEN /hpf (<or=2+)
[2023-10-19 18:45] LABS: Color, Urine Yellow (Yellow); Glucose, Dipstick Normal (Normal); Ketone-Dipstick Negative (Negative); Leukocyte Esterase-Dipstick 500 /ul (Negative); Nitrite-Dipstick Negative (Negative); Occult Blood-Urine 25 /ul (Negative); Protein-Dipstick Negative (Negative); Urine Bilirubin Dipstick Negative (Negative); Urine Clarity Sl. Cloudy (Clear); Urine Urobilinogen Normal (Normal)
[2023-10-19 18:49] LABS: AST(SGOT) 49 U/L (15-37); Alanine Aminotransfer ALT/SGPT 53 U/L (13-56); Alkaline Phosphatase 146 U/L (45-117); Anion Gap 7 (5-15); BUN 15 mg/dL (7-18); BUN/Creat Ratio 16.3 RATIO (10-20); Calcium,Total 9.5 mg/dL (8.5-10.1); Chloride 109 mmol/L (98-107); Creatinine, Serum 0.92 mg/dL (0.55-1.02); EST Glomerular Filtration Rate 74 mL/min (>60); Est Glom Filt Rate - Afr Amer 90 mL/min (>60); Estimated Creatinine Clearance 71.95 ml/min; Globulin 4.1 g/dL (2.2-4.2); Glucose 124 mg/dL (74-106); Lipase 59 U/L (13-75); Potassium 4.3 mmol/L (3.5-5.1); Protein, Total 8.1 g/dL (6.4-8.2); Sodium Level 140 mmol/L (136-145)
[2023-10-19 18:52] LABS: Red Blood Cells-Urine 0-5 SEEN /hpf (0-5); White Blood Cells 25-50 SEEN /hpf (0-5)
[2023-10-19 18:53] LABS: Bacteria 1+ /hpf (None Seen); Squamous Epithelial Cells - UA 5-10 SEEN /hpf (5-10)
[2023-10-19] MEDS: Cephalexin 250 MG Capsule 500 MG PO (19:41)
[2023-10-19 19:54] VITALS: BP 155/65; PULSE 90; RESP 16; O2SAT 93
== END 2023-10-19 20:35 | disposition home or self-care (01) ==
PROVIDERS: Emergency Provider Emergency Medicine; PCP Nurse Practitioner Primary Care; Visit Provider Emergency Medicine
DX: N39.0 Urinary tract infection, site not specified (principal); R10.12 Left upper quadrant pain; F17.290 Nicotine dependence, other tobacco product, uncomplicated; K76.0 Fatty (change of) liver, not elsewhere classified
CPT/HCPCS: 74177; 80053; 81001; 83690; 85025; 87077; 87086; 87088; 87186; 96374; 96375; 96376; 99283; J7030; Q9967; J2405

== ENCOUNTER 2023-10-23 23:28 | Emergency (ER) | payer MEDICAID, SELFPAY ==
[2023-10-23 23:28] VITALS: BP 132/86; PULSE 77; RESP 15; TEMP 36.3; O2SAT 100; BMI 37.7
--- NOTE | 2023-10-24 00:14 | EDS_ITS ---
HPI HPI - Female History of Present Illness Chief Complaint: Complaint Informant: patient Narrative Narrative: 33-year-old female history of frequent UTIs and kidney stones. Was seen on 1225 about 5 days ago diagnosed with a UTI. Initially was placed on Keflex and when the urine culture came back the antibiotic was changed to Augmentin which she has been on the last 2 days. She just states that she is feeling worse. She had a CAT scan on that prior visit that showed no stone. Says she just feels weak. She denies vomiting or diarrhea. She has had a fever and took Tylenol prior to arrival. No abdominal pain. Prior similar symptoms: Yes Recent Illness/Hospitalization: No PFSH PFSH Medical History Alcohol use Anxiety Back pain Bilateral renal stones Bipolar disorder Cardiology follow-up encounter Chronic interstitial cystitis Conversion disorder Depression Easy bruising Endometriosis Environmental and seasonal allergies Fatty liver Fibromyalgia Gastric reflux High cholesterol History of cervical cancer History of echocardiogram History of edema History of renal disease History of stress test Hypertension Kidney stone Left renal stone Leg cramps Marijuana use Migraine Peptic ulcer of stomach Restless legs Smoker Syncope Wears dentures Wears glasses Home Medications albuterol sulfate 90 mcg/actuation aerosol inhaler (Ventolin HFA) 2 puff inhalation Q6H PRN Shortness Of Breath 09/22/21 [History Last Taken Unknown] diphenhydramine HCl 50 mg capsule 50 mg PO Q6H PRN Allergic Symptoms 09/22/21 [History Last Taken Unknown] dupilumab 300 mg/2 mL subcutaneous syringe (Dupixent) 300 mg subcut .[id number] 09/22/21 [History Last Taken Unknown] escitalopram oxalate 20 mg tablet (Lexapro) 20 mg PO DAILY 09/22/21 [History Last Taken Unknown] fluticasone propionate 50 mcg/actuation nasal spray,suspension 1 spray intranasal DAILY ALLERGIES 09/22/21 [History Last Taken Unknown] omeprazole 40 mg capsule,delayed release 40 mg PO DAILY 09/22/21 [History Last Taken Unknown] tizanidine 4 mg capsule 4 mg PO Q8H PRN Back Pain 09/22/21 [History Last Taken Unknown] propranolol 10 mg tablet 10 mg PO DAILY BP 12/26/21 [History Last Taken Unknown] quetiapine 50 mg tablet,extended release 24 hr 100 mg PO DAILY 01/30/23 [History Last Taken Unknown] pregabalin 75 mg capsule 75 mg PO Q8H 09/15/23 [History Last Taken Unknown] hydrocodone-acetaminophen 5-325mg 5mg-325mg 1 tab PO Q6H PRN PRN Pain 3 days #10 TABLETS 09/29/23 [Rx Last Taken Unknown] hydrocodone-acetaminophen 5-325mg 5mg-325mg 1 tab PO Q6H PRN PRN Pain 3 days #10 TABLETS 10/07/23 [Rx Last Taken Unknown] cephalexin 500 mg capsule 500 mg PO Q6 #28 CAPSULES 10/19/23 [Rx Last Taken Unknown] Allergy/AdvReac Type Severity Reaction Status Date / Time amitriptyline Allergy MUSCLE Verified 10/23/23 23:33 SPASMS Bleach (Sodium Hypochlorite) Allergy Hives Verified 10/23/23 23:33 codeine Allergy Hives Verified 10/23/23 23:33 ketorolac [From Toradol] Allergy Itching Verified 10/23/23 23:33 nitrofurantoin Allergy Anaphylaxis Verified 10/23/23 23:33 [From Macrodantin] doxycycline AdvReac Vomiting Verified 10/23/23 23:33 Family History Mother Hypertension Migraine Grandmother CVA (cerebral vascular accident) Grandfather Diabetes Father Myocardial infarction Surgical History History of cystoscopy History of hysterectomy Hx of cholecystectomy S/P laparoscopic surgery Social History household members: significant other Smoking Status: Current every day smoker tobacco type: e-cigarettes alcohol intake: current details: occasionally substance use type: does not use caffeine: Yes what type of physical activity do you participate in: walking frequency: 1-2 times per week seatbelt use: always do you feel safe at home: Yes additional social history: Single ROS ROS ED ROS Narrative Fever. Review of Systems ROS Unobtainable: Denies due to encephalopathy Constitutional Constitutional ED: Reports fever(s); Denies chills Eyes Eyes: Denies blurry vision ENT ENT ED: Denies ear pain Cardiovascular Cardiovascular: Denies chest pain or palpitations Respiratory/Chest Respiratory/Chest: Denies cough or dyspnea Gastrointestinal Gastrointestinal: Denies abdominal pain Genitourinary Genitourinary ED: Denies dysuria or hematuria Musculoskeletal Musculoskeletal: Denies arthralgias Integumentary Denies abscess Neurologic Neurologic: Denies headache(s) Psychiatric Psychiatric: Denies anxiety or depression Endocrine Endocrinology: Denies heat intolerance Hematologic/Lymphatic Hematologic/Lymphatic: Denies easy bleeding, easy bruising or lymphadenopathy Allergic/Immunologic Allergic/Immunologic ED: Denies mouth swelling, tongue swelling or urticaria EXAM Physical Exam Narrative Exam Narrative: Well-appearing 33-year-old female. Vital signs stable afebrile. Pulse ox 100% on room air no signs hypoxia. H EENT exam unremarkable. Moist weeks membranes. Neck nontender no meningismus. No lymphadenopathy. Lungs clear to auscultation bilaterally. Heart regular rhythm rate about 75 no murmur. Chest wall and ribs nontender. Abdomen soft nontender. Back nontender. Moving all 4 extremities. Nontender no edema. Skin no rashes. Neurologically she is awake alert with no focal motor deficits. Clinically appears well. Const Vital Signs: 10/23/23 23:28 10/24/23 01:28 Temperature 97.4 F L Temperature Source Temporal Pulse Rate 77 Respiratory Rate 15 18 Blood Pressure 132/86 H Blood Pressure Mean 101 Pulse Ox 100 Oxygen Delivery Method Room Air Room Air Positive well nourished, well developed and obese; Negative for cachectic, contractures or unkempt General Appearance ED: well developed and NAD; Negative for unkempt, cachectic, contractures or pallor Nutritional Appearance: obese; Negative for cachectic HEENT Reports moist mucous membranes Negative for trauma or tenderness Eyes PERRL and EOMs intact bilaterally General Eye ED: Negative for pale conjunctiva or scleral icterus Neck no lymphadenopathy, supple and no JVD General: Negative for other Thyroid: Negative for tender Lymph Lymphatic: Negative for other Chest Wall inspection of chest normal and palpation of chest normal Chest: Negative for other Resp normal respiratory effort and clear to auscultation bilaterally Effort and Inspection: Negative for pain with movement Auscultation: Negative for rales, rhonchi or wheezes Cardio regular rate, regular rhythm, S1 normal heart sound, no murmurs and no JVD Rate: Negative for bradycardia or tachycardic Rhythm: Negative for abnormal rhythm GI normal to inspection, nondistended, normoactive bowel sounds, soft to palpation, non-tender and no masses Auscultation: normoactive bowel sounds Palpation: Negative for tender or guarding Back/Spine no CVA tenderness General Back: Negative for CVA tenderness Cervical Spine: Negative for cervical spine tenderness Thoracic Spine / Upper Back: Negative for thoracic spinal tenderness Lumbar Spine / Lower Back: Negative for lumbar spinal tenderness Sacrum: Negative for other Extremity normal to inspection and full ROM General Extremety ED: Negative for edema or tenderness General Extremity: Negative for edema Neuro oriented x3 and CN's II-XII intact bilaterally Sensorium / Orientation: alert, oriented to person, oriented to place and oriented to time; Negative for confused, lethargic or stuporous Motor Exam: strength 5/5 throughout Psych mental status grossly normal Appearance: Negative for unkempt Attitude: No agitated Speech: No other Mood & Affect: Negative for depressed, anxious or tearful Skin no rashes or lesions noted and no wounds General Skin Exam: Negative for jaundice or pallor Rashes: No rashes noted Trauma: Negative for other MDM MDM MDM Narrative Medical decision making narrative: 33-year-old recent UTI states she is feeling worse. She did have a recent CAT scan that was negative for any type of kidney stone or obstruction. She will treat with IV fluids. Repeat screening labs and urinalysis. COVID and flu will be obtained. Repeat exam patient doing well at 3:08 AM. She is requested pain medications. I do not think narcotic pain medications are appropriate. She reportedly has a allergy to Toradol. I reviewed her labs and prior visits she has had multiple visits. She has had 5 CAT scans in the last 2 years. And several recently. I do not think she needs additional imaging. She can continue her current antibiotics and be discharged home. Her exam is benign. History & Record Review Discussion w/independent historian: Patient Additional record(s) reviewed:: Prior inpatient record, Prior outpatient record, Prior ED visit and Prior labs Lab Data Attestation: I reviewed the patient's lab results. Lab results narrative: CBC shows a normal white count 5.8. H&H 12.9 and 39. Platelets 217. Electrolytes show a gap of 6. Normal BUN of 13 creatinine 0.8. Glucose 105. Urinalysis is normal. No nitrates. No white or red cells. No bacteria. She is currently on antibiotics for UTI. COVID and flu swabs negative. Labs: Laboratory Results - last 24 hr 10/24/23 10/24/23 00:30 00:46 WBC 5.8 RBC 4.46 Hgb 12.9 Hct 39.9 MCV 89.5 MCH 28.9 MCHC 32.3 RDW Std Deviation 43.5 RDW Coeff of [place] 13.3 Plt Count 217 MPV 11.2 Immature Gran % (Auto) 0.900 Neut % (Auto) 51.3 Lymph % (Auto) 41.[address] [place] % (Auto) 4.8 Eos % (Auto) 1.5 Baso % (Auto) 0.2 Absolute Neuts (auto) 3.0 Absolute Lymphs (auto) 2.40 Nucleated RBC % 0 Sodium 139 Potassium 3.8 Chloride 108 H Carbon Dioxide 25.0 Anion Gap 6 BUN 13 Creatinine 0.82 Estim Creat Clear Calc 80.72 Est GFR (MDRD) Af Amer 103 Est GFR (MDRD) Non-Af 85 BUN/Creatinine Ratio 15.9 Glucose 105 Calcium 9.9 Urine Color Yellow Urine Clarity Sl. Cloudy Urine pH 7.0 Ur Specific [place] 1.010 Urine Protein Negative Urine Glucose (UA) Normal Urine Ketones Negative Urine Occult Blood Negative Urine Nitrite Negative Urine Bilirubin Negative Urine Urobilinogen Normal Ur Leukocyte Esterase 25 H Urine RBC 0 SEEN Urine WBC 0-5 SEEN Ur Squamous Epith Cells 0-5 SEEN Urine Bacteria 0 SEEN Urine Mucus 0 SEEN Discharge Plan Triage Chief Complaint: Complaint ED Provider: Satya Page Dx/Rx/DC Orders Clinical Impression: History of UTI, History of kidney stones Prescriptions: No Action propranolol 10 mg tablet 10 mg PO DAILY diphenhydramine HCl 50 mg Capsule 50 mg PO Q6H PRN (Reason: Allergic Symptoms) omeprazole 40 mg Capsule,Delayed Release(Dr/Ec) 40 mg PO DAILY albuterol sulfate [Ventolin HFA] 90 mcg/actuation Hfa Aerosol Inhaler 2 puff INHALATION Q6H PRN (Reason: Shortness Of Breath) fluticasone propionate 50 mcg/actuation [place],Suspension 1 spray INTRANASAL DAILY escitalopram oxalate [Lexapro] 20 mg Tablet 20 mg PO DAILY tizanidine 4 mg Capsule 4 mg PO Q8H PRN (Reason: Back Pain) Dupixent Syringe 300 mg/2 mL Syringe 300 mg SUBCUT .[id number] Rx Instructions: EVERY 2 WEEKS quetiapine 50 mg tablet extended release 24 hr 100 mg PO DAILY hydrocodone-acetaminophen [hydrocodone-acetaminophen] 5-325 mg tablet 1 tab PO Q6H PRN PRN (Reason: Pain) 3 Days Qty: 10 0RF hydrocodone-acetaminophen 5-325 mg tablet 1 tab PO Q6H PRN PRN (Reason: Pain) 3 Days Qty: 10 0RF cephalexin [cephalexin] 500 mg capsule 500 mg PO Q6 Qty: 28 0RF pregabalin 75 mg capsule 75 mg PO Q8H Patient Comments: TAKE 1 CAPSULE BY MOUTH THREE TIMES DAILY Primary Care Provider: Elizabeth Spear NP Referrals: Elizabeth Spear NP, DIRECTOR OF BROADCAST-C [Primary Care Provider] - As Needed Activity Restrictions/Additional Instructions: Your labs look good. Your urine is being treated appropriately. Continue and finish the current antibiotic. Plenty of fluids and rest. Motrin and Tylenol for pain. Follow-up with your primary care provider if not improving. Disposition Disposition: Home, Self Care
[2023-10-24] MEDS: Ondansetron 4 MG/2 ML Vial IV (00:44)
[2023-10-24] MEDS: 0.9% Normal Saline (1000mL) 1,000 ML 1000 ML IV (00:44)
[2023-10-24 00:47] LABS: Basophil# 0.01 X10^3/uL; Basophil% 0.2 % (0-1); Eosinophil# 0.09 X10^3/uL; Eosinophils% 1.5 % (0-5); Hematocrit 39.9 % (37-47); Hemoglobin 12.9 g/dL (12.0-15.0); Lymphocyte % 41.3 % (19-41); Mean Corp Hgb Conc 32.3 g/dL (32-36); Mean Corpuscular Hgb 28.9 pg (27.0-32.0); Mean Corpuscular Volume 89.5 fL (81-99); Mean Platelet Vol. 11.2 fl (6.2-12.0); Monocyte# 0.28 X10^3/uL; Monocyte% 4.8 % (0-10); NRBC Flagged by Analyzer 0 % (0-5); Neutrophil # 2.98 X10^3/uL (2.7-7.7); Neutrophil % 51.3 % (47-70); Platelet Count 217 K/mm3 (150-450); RBC Distribution Width CV 13.3 % (11.6-14.6); RBC Distribution Width SD 43.5 fl (35.1-43.9); Red Blood Count 4.46 M/mm3 (4.2-5.4); White Blood Count 5.8 K/mm3 (4.4-11.0)
[2023-10-24 00:50] LABS: POSITIVE COUNT NO; POSITIVE DIFFERENTIAL NO; POSITIVE MORPHOLOGY NO
[2023-10-24 00:59] LABS: Bacteria 0 SEEN /hpf (None Seen); Mucous, Urine 0 SEEN /hpf (<or=2+); Red Blood Cells-Urine 0 SEEN /hpf (0-5)
[2023-10-24 01:00] LABS: Anion Gap 6 (5-15); BUN 13 mg/dL (7-18); BUN/Creat Ratio 15.9 RATIO (10-20); Calcium,Total 9.9 mg/dL (8.5-10.1); Chloride 108 mmol/L (98-107); Creatinine, Serum 0.82 mg/dL (0.55-1.02); EST Glomerular Filtration Rate 85 mL/min (>60); Est Glom Filt Rate - Afr Amer 103 mL/min (>60); Estimated Creatinine Clearance 80.72 ml/min; Glucose 105 mg/dL (74-106); Potassium 3.8 mmol/L (3.5-5.1); Sodium Level 139 mmol/L (136-145)
[2023-10-24 01:21] LABS: Color, Urine Yellow (Yellow); Glucose, Dipstick Normal (Normal); Ketone-Dipstick Negative (Negative); Leukocyte Esterase-Dipstick 25 /ul (Negative); Nitrite-Dipstick Negative (Negative); Occult Blood-Urine Negative /ul (Negative); Protein-Dipstick Negative (Negative); Urine Bilirubin Dipstick Negative (Negative); Urine Clarity Sl. Cloudy (Clear); Urine Urobilinogen Normal (Normal)
[2023-10-24 01:28] VITALS: RESP 18
[2023-10-24 02:54] LABS: White Blood Cells 0-5 SEEN /hpf (0-5)
[2023-10-24 02:55] LABS: Squamous Epithelial Cells - UA 0-5 SEEN /hpf (5-10)
[2023-10-24 03:32] VITALS: BP 122/74; PULSE 68; RESP 15; O2SAT 97
== END 2023-10-24 03:40 | disposition home or self-care (01) ==
PROVIDERS: Emergency Provider Emergency Medicine; PCP Nurse Practitioner Primary Care; Visit Provider Emergency Medicine
DX: R11.2 Nausea with vomiting, unspecified (principal); F17.290 Nicotine dependence, other tobacco product, uncomplicated; K76.0 Fatty (change of) liver, not elsewhere classified
CPT/HCPCS: 80048; 81001; 85025; 87428; 96361; 96374; 99282; J7030; J2405

== ENCOUNTER 2023-10-24 20:48 | Emergency (ER) | payer MEDICAID, SELFPAY ==
[2023-10-24 20:48] VITALS: PULSE 110; RESP 16; TEMP 36.6; O2SAT 100; BMI 37.2
[2023-10-24 20:51] VITALS: BP 154/102
--- NOTE | 2023-10-24 22:01 | EDS_ITS ---
HPI History of Present Illness Chief Complaint: General Illness [facility] Medical History Alcohol use Anxiety Back pain Bilateral renal stones Bipolar disorder Cardiology follow-up encounter Chronic interstitial cystitis Conversion disorder Depression Easy bruising Endometriosis Environmental and seasonal allergies Fatty liver Fibromyalgia Gastric reflux High cholesterol History of cervical cancer History of echocardiogram History of edema History of renal disease History of stress test Hypertension Kidney stone Left renal stone Leg cramps Marijuana use Migraine Peptic ulcer of stomach Restless legs Smoker Syncope Wears dentures Wears glasses Home Medications albuterol sulfate 90 mcg/actuation aerosol inhaler (Ventolin HFA) 2 puff inhalation Q6H PRN Shortness Of Breath 09/22/21 [History Last Taken Unknown] diphenhydramine HCl 50 mg capsule 50 mg PO Q6H PRN Allergic Symptoms 09/22/21 [History Last Taken Unknown] dupilumab 300 mg/2 mL subcutaneous syringe ([employer]) 300 mg subcut .[id number] 09/22/21 [History Last Taken Unknown] escitalopram oxalate 20 mg tablet (Lexapro) 20 mg PO DAILY 09/22/21 [History Last Taken Unknown] fluticasone propionate 50 mcg/actuation nasal spray,suspension 1 spray intranasal DAILY ALLERGIES 09/22/21 [History Last Taken Unknown] omeprazole 40 mg capsule,delayed release 40 mg PO DAILY 09/22/21 [History Last Taken Unknown] tizanidine 4 mg capsule 4 mg PO Q8H PRN Back Pain 09/22/21 [History Last Taken Unknown] propranolol 10 mg tablet 10 mg PO DAILY BP 12/26/21 [History Last Taken Unknown] quetiapine 50 mg tablet,extended release 24 hr 100 mg PO DAILY 01/30/23 [History Last Taken Unknown] pregabalin 75 mg capsule 75 mg PO Q8H 09/15/23 [History Last Taken Unknown] hydrocodone-acetaminophen 5-325mg 5mg-325mg 1 tab PO Q6H PRN PRN Pain 3 days #10 TABLETS 09/29/23 [Rx Last Taken Unknown] hydrocodone-acetaminophen 5-325mg 5mg-325mg 1 tab PO Q6H PRN PRN Pain 3 days #10 TABLETS 10/07/23 [Rx Last Taken Unknown] cephalexin 500 mg capsule 500 mg PO Q6 #28 CAPSULES 10/19/23 [Rx Last Taken Unknown] Allergy/AdvReac Type Severity Reaction Status Date / Time amitriptyline Allergy MUSCLE Verified 10/24/23 20:51 SPASMS Bleach (Sodium Hypochlorite) Allergy Hives Verified 10/24/23 20:51 codeine Allergy Hives Verified 10/24/23 20:51 ketorolac [From Toradol] Allergy Itching Verified 10/24/23 20:51 nitrofurantoin Allergy Anaphylaxis Verified 10/24/23 20:51 [From Macrodantin] doxycycline AdvReac Vomiting Verified 10/24/23 20:51 Family History Mother Hypertension Migraine Grandmother CVA (cerebral vascular accident) Grandfather Diabetes Father Myocardial infarction Surgical History History of cystoscopy History of hysterectomy Hx of cholecystectomy S/P laparoscopic surgery Social History household members: significant other Smoking Status: Current every day smoker tobacco type: e-cigarettes alcohol intake: current details: occasionally substance use type: does not use caffeine: Yes what type of physical activity do you participate in: walking frequency: 1-2 times per week seatbelt use: always do you feel safe at home: Yes additional social history: Single EXAM Physical Exam Const Vital Signs: 10/24/23 20:48 10/24/23 20:51 10/24/23 21:47 Temperature 97.8 F Temperature Source Temporal Pulse Rate 110 H Respiratory Rate 16 Respiratory Effort Normal Non-Labored Respiratory Pattern Normal Blood Pressure 154/102 H Blood Pressure Mean 119 Pulse Ox 100 MDM MDM MDM Narrative Medical decision making narrative: HISTORY OF PRESENT ILLNESS: 33-year-old female here with multiple complaints including a fall last night. Nausea and vomiting. Notes left-sided arm pain as well. No she was seen yesterday and diagnosed UTI. She further states she is here primarily for nausea vomiting and vomiting blood. States this began tonight 2-3 episodes. Denies any bilious nature to her vomitus. She also complains of feeling foggy, and points confused. Notes a fall yesterday onto her buttocks. Denies head trauma or loss of consciousness. Denies any change in urinary or bowel habits. Denies any chest pain or shortness of breath. She is she endorses left shoulder pain. REVIEW OF SYSTEMS: Pertinent positives: Nausea, vomiting, left shoulder pain, fatigue Pertinent negatives: Chest pain, shortness of breath, abdominal pain, syncope PHYSICAL EXAM: Nursing triage notes reviewed, Vital signs reviewed Primary Survey Airway: Intact Breathing: Bilateral breath sounds Circulation: Palpable bilateral femorals, Palpable bilateral radial, Palpable bilateral DP and Palpable bilateral PT Disability / Spine precautions GCS Score: Eye Openin Verbal Response: 5 Motor Response: 6 Secondary Survey Constitutional: Please see MDM Head: Atraumatic, Midface stable, NO jaw malocclusion, No Cephalohematoma, and No Lacerations noted Eye: Pupils equal round and reactive to light, Extraocular muscles intact and No periorbital ecchymosis or stepoff, no evidence of entrapment ENT: Oropharynx clear, no lacerations, no hemotympanum, no raccoon eyes or salmeron sign Cervical spine / Neck: No cervical spine bony tenderness, crepitance, or stepoff deformity Trachea midline Lungs: Clear to auscultation, No asymmetric rise and No crepitus, no flail chest Cardiac: Regular rate and rhythm and No murmurs Abdomen: Soft, Nontender and No rebound Pelvis: Pelvis stable to compression : No evidence of genital injury Back: No midline bony tenderness to thoracic/lumbar/sacral spines Neuro: Alert and oriented x3, neuro exam at baseline, cranial nerves II through XII are intact. No pain with extraocular muscle movement. There is negative test of skew. 5 of 5 strength in upper and lower extremities in flexion extension. Intact sensation to light touch in upper and lower extremity dermatomes. No truncal or extremity ataxia. No dysdiadochokinesia. Normal gait. 2+ reflexes in upper and lower extremities. No meningeal signs. Negative Babinski. NIH of 0. Extremities: NO gross Deformities, full range of motion in all joints of the upper and lower extremities. No obvious deformities, no obvious tenderness to palpation. Psych: Normal affect Nursing triage notes reviewed, Vital signs reviewed MEDICAL DECISION MAKING: Chief Complaint: Nausea vomiting External records reviewed: Labs reviewed: Labs from 24 hours ago show no leukocytosis, no electrolyte disturbances, no anion gap, UA with only 25 leuk esterase no nitrites no hematuria. Imaging reviewed CT scan from 10/19/2023 shows constipation but no acute appendicitis or obstruction Factors affecting care: UTI, nephrolithiasis, lumbar radiculopathy Social determinants of health: Frequent ED utilizer History obtained from others: none Consults: none MDM Narrative: Patient was initially tachycardic otherwise afebrile. Exam without obvious traumatic injuries. No obvious deformity. Given nausea vomiting, bloody vom itus concern for myriad of etiologies as listed below I considered the following differential diagnosis: Dehydration, electrolyte disturbances, anemia, esophageal pathology (Lucía-Bello or Boerhaave syndrome) ALL IMAGES (IF OBTAINED) HAVE BEEN PERSONALLY REVIEWED AND INTERPRETED BY MYSELF. I have personally reviewed the patient's chest x-ray. Chest x-ray is unremarkable for pulmonary edema, pneumothorax, pneumonia or focal cardiopulmonary abnormality. Urinalysis shows no evidence of urinary inflammation suggestive of UTI BMP without evidence of significant electrolyte abnormalities, no anion gap, no acute kidney injury. LFTs elevation AST, ALT and alk phos however these are stable and improving from baseline Lipase is wnl indicating no pancreatic inflammation. Urine shows mild inflammation but no obvious UTI Urine test is negative The synthesis of the patient's history, physical exam, labs, images suggest no acute life-limiting etiology. No signs of esophageal perforation on chest x-ray labs no evidence of significant dehydration, electrolyte disturbance. No evidence of UTI or . Patient able to tolerate p.o. here she is appropriate discharge home with Zofran. The patient and/or family, caregivers express understanding. The patient and/or family, caregivers agrees with the plan. Shared decision making: I will have a discussion with the patient and or visitors regarding risk/benefits of further testing or admission. They will be made aware of of the risk/benefits inherent in this decision they will be given the opportunity to voice understanding. Total critical care time today provided was at least 0 minutes. This excludes separately billable procedures. Critical care time (if documented) is secondary to the patient having high probability of clinically significant/life threatening deterioration in the patient's condition which required my urgent intervention. Impression: 1. Nausea vomiting 2. Elevated liver enzymes Dispo: Discharge Radiography Diagnostic Testing: Clinical Impression(s) from Imaging Studies Chest X-Ray 10/24/23 22:20 IMPRESSION: Normal x-ray examination of the chest. Electronically Signed: Benito Xavier MD ([place]) at 22:51 EST , Discharge Plan Triage Chief Complaint: General Illness ED Provider: Tej Najera Dx/Rx/DC Orders Prescriptions: No Action propranolol 10 mg tablet 10 mg PO DAILY diphenhydramine HCl 50 mg Capsule 50 mg PO Q6H PRN (Reason: Allergic Symptoms) omeprazole 40 mg Capsule,Delayed Release(Dr/Ec) 40 mg PO DAILY albuterol sulfate [Ventolin HFA] 90 mcg/actuation Hfa Aerosol Inhaler 2 puff INHALATION Q6H PRN (Reason: Shortness Of Breath) fluticasone propionate 50 mcg/actuation [place],Suspension 1 spray INTRANASAL DAILY escitalopram oxalate [Lexapro] 20 mg Tablet 20 mg PO DAILY tizanidine 4 mg Capsule 4 mg PO Q8H PRN (Reason: Back Pain) Dupixent Syringe 300 mg/2 mL Syringe 300 mg SUBCUT .[id number] Rx Instructions: EVERY 2 WEEKS quetiapine 50 mg tablet extended release 24 hr 100 mg PO DAILY hydrocodone-acetaminophen [hydrocodone-acetaminophen] 5-325 mg tablet 1 tab PO Q6H PRN PRN (Reason: Pain) 3 Days Qty: 10 0RF hydrocodone-acetaminophen 5-325 mg tablet 1 tab PO Q6H PRN PRN (Reason: Pain) 3 Days Qty: 10 0RF cephalexin [cephalexin] 500 mg capsule 500 mg PO Q6 Qty: 28 0RF pregabalin 75 mg capsule 75 mg PO Q8H Patient Comments: TAKE 1 CAPSULE BY MOUTH THREE TIMES DAILY Primary Care Provider: Elizabeth Spear NP Referrals: Elizabeth Spear NP, DIRECTOR OF THERAPY SERVICES-[facility] [Primary Care Provider] -
--- NOTE | 2023-10-24 22:20 | RAD_ITS ---
STUDY: X-RAY CHEST REASON FOR EXAM: Female, 33 years old. epigastric pain TECHNIQUE: AP COMPARISON: 07/28/2023. FINDINGS: The lungs are clear and expanded. There is no demonstrated pleural abnormality. Normal size heart. Normal mediastinum and ever. Normal visualized pulmonary arteries. Normal visualized aortic arch and descending thoracic aorta. Normal visualized thoracic spine. Normal visualized ribs, clavicles, and shoulders. There is no demonstrated abnormality of the visualized soft tissue structures of the upper abdomen. RAD/Chest 1 View IMPRESSION: Normal x-ray examination of the chest. Electronically Signed: Benito Xavier MD ([place]) at 22:51 EST ,
[2023-10-24] MEDS: Ondansetron 4 MG/2 ML Vial IV (22:42)
[2023-10-24] MEDS: Ibuprofen 200 MG Tablet 400 MG PO (22:43)
[2023-10-24] MEDS: 0.9% Normal Saline (1000mL) 1,000 ML 999 ML IV (22:43)
[2023-10-24] MEDS: Acetaminophen 325 MG Tablet PO (22:43)
[2023-10-24] MEDS: Famotidine 200 MG/20 ML MDV 20 MG in 0.9% Normal Saline (Pres. free 8 ML 300 MG IV (22:44)
[2023-10-24 22:49] LABS: Bacteria 0 SEEN /hpf (None Seen); Mucous, Urine 0 SEEN /hpf (<or=2+); Red Blood Cells-Urine 0 SEEN /hpf (0-5)
[2023-10-24 22:56] LABS: Color, Urine Yellow (Yellow); Glucose, Dipstick Normal (Normal); Ketone-Dipstick Negative (Negative); Leukocyte Esterase-Dipstick 25 /ul (Negative); Nitrite-Dipstick Negative (Negative); Occult Blood-Urine 10 /ul (Negative); Protein-Dipstick Negative (Negative); Urine Bilirubin Dipstick Negative (Negative); Urine Clarity Clear (Clear); Urine Urobilinogen Normal (Normal)
[2023-10-24 23:01] LABS: Internal QC Validated? YES +Cl - CLEAR BKGD; Pregnancy, Urine Negative Negative; Squamous Epithelial Cells - UA 10-25 SEEN /hpf (5-10); White Blood Cells 0-5 SEEN /hpf (0-5)
[2023-10-24 23:11] LABS: AST(SGOT) 65 U/L (15-37); Alanine Aminotransfer ALT/SGPT 81 U/L (13-56); Albumin, Serum 3.9 g/dL (3.2-5.0); Alkaline Phosphatase 150 U/L (45-117); Anion Gap 5 (5-15); BUN 10 mg/dL (7-18); BUN/Creat Ratio 12.8 RATIO (10-20); Calcium,Total 9.5 mg/dL (8.5-10.1); Chloride 111 mmol/L (98-107); Creatinine, Serum 0.78 mg/dL (0.55-1.02); EST Glomerular Filtration Rate 90 mL/min (>60); Est Glom Filt Rate - Afr Amer 109 mL/min (>60); Estimated Creatinine Clearance 84.86 ml/min; Globulin 4.1 g/dL (2.2-4.2); Glucose 101 mg/dL (74-106); Lipase 32 U/L (13-75); Potassium 3.9 mmol/L (3.5-5.1); Sodium Level 140 mmol/L (136-145)
== END 2023-10-24 23:47 | disposition home or self-care (01) ==
PROVIDERS: Emergency Provider Emergency Medicine; PCP Nurse Practitioner Primary Care; Visit Provider Emergency Medicine
DX: R11.2 Nausea with vomiting, unspecified (principal); F17.290 Nicotine dependence, other tobacco product, uncomplicated; K76.0 Fatty (change of) liver, not elsewhere classified
CPT/HCPCS: 71045; 80053; 81001; 81025; 83690; 96374; 99284; J7030; A4216; J2405; J3490

== ENCOUNTER 2023-10-28 06:03 | Observation (INO) | payer MEDICAID, SELFPAY ==
[2023-10-28 06:04] VITALS: BP 157/109; PULSE 80; RESP 15; TEMP 36.3; O2SAT 97; BMI 38.0
--- NOTE | 2023-10-28 06:12 | RAD_ITS ---
EXAM: XR RIGHT HAND COMPLETE, 3 OR MORE VIEWS CLINICAL INDICATION: injury TECHNIQUE: Frontal, lateral and oblique views of the right hand. COMPARISON: No relevant prior studies available. FINDINGS: BONES/JOINTS: Unremarkable. No acute fracture. No subluxation. Normal alignment. Preservation of the joint space. No sclerotic or destructive changes observed. SOFT TISSUES: Soft tissue swelling of the proximal second through fifth digits. Mild dorsal soft tissue swelling at the wrist and hand. No radiopaque foreign body. RAD/Hand Min 3 Views IMPRESSION: Soft tissue swelling. Electronically Signed: Malka Lancaster MD at 7:20 EST ,
--- NOTE | 2023-10-28 06:12 | CT_ITS ---
EXAM: CT HEAD WITHOUT INTRAVENOUS CONTRAST CLINICAL INDICATION: fall TECHNIQUE: Multiple axial images were obtained of the head without intravenous contrast. This CT exam was performed using one or more of the following dose reduction techniques: automated exposure control, adjustment of the mA and/or kV according to patient size, and/or use of iterative reconstruction technique. RADIATION DOSE: CTDIvol = 44.99 mGy, DLP = 745.49 mGy-cm. COMPARISON: No relevant prior studies available. FINDINGS: BRAIN AND EXTRA-AXIAL SPACES: Unremarkable. No intra- or extra-axial hemorrhage. No evidence of acute infarct. No intracranial mass or mass effect. There is preservation of the lowery/white matter interface. Posterior fossa structures are unremarkable. Ventricles are appropriate for age. No hydrocephalus. Basal cisterns are patent. BONES/JOINTS: Unremarkable. No discrete lytic or blastic abnormalities. SINUSES: Unremarkable as visualized. Clear. MASTOID AIR CELLS: Unremarkable. Clear. ORBITS: Visualized globes, extraocular muscles, optic nerves and retrobulbar fat appear unremarkable. CT/Brain/Head without Contrast IMPRESSION: Negative head/brain CT without intravenous contrast. Electronically Signed: Malka Lancaster MD at 6:44 EST ,
--- NOTE | 2023-10-28 06:12 | CT_ITS ---
EXAM: CT CERVICAL SPINE WITHOUT INTRAVENOUS CONTRAST CLINICAL INDICATION: fall TECHNIQUE: Helically acquired images were obtained of the cervical spine without intravenous contrast. 2D reformatted images were reviewed. This CT exam was performed using one or more of the following dose reduction techniques: automated exposure control, adjustment of the mA and/or kV according to patient size, and/or use of iterative reconstruction technique. RADIATION DOSE: CTDIvol = 29.10 mGy, DLP = 659.45 mGy-cm COMPARISON: No relevant prior studies available. FINDINGS: VERTEBRAE: Mild straightening of the usual lordotic curvature. No discrete lytic or blastic abnormality. Normal craniocervical junction and cervicothoracic junction. No fracture or subluxation. No helen spinal stenosis. DISCS/SPINAL CANAL/NEURAL FORAMINA: Fusion at T3-T4 level is included. The disc spaces are fairly well-maintained. SOFT TISSUES: Unremarkable. No prevertebral soft tissue swelling. LYMPH NODES: Unremarkable. No cervical adenopathy. LUNG APICES: Unremarkable as visualized. Clear. CT/Spine Cervical without Contras IMPRESSION: No acute findings in the cervical spine. Electronically Signed: Malka Lancaster MD at 7:17 EST ,
--- NOTE | 2023-10-28 06:12 | RAD_ITS ---
EXAM: XR LUMBOSACRAL SPINE, 2 OR 3 VIEWS CLINICAL INDICATION: fall TECHNIQUE: Frontal and lateral views of the lumbar spine and sacrum. COMPARISON: No relevant prior studies available. FINDINGS: VERTEBRAE: Mild anterior spondylosis at the superior margin of T12, now decreased height. The usual lordotic curvature and the disc spaces are fairly well-maintained. Preserved vertebral body height. No fracture. No significant facet arthropathy. DISC SPACES: No acute findings. Disc spaces are maintained. GASTROINTESTINAL TRACT: Mild gas and stool throughout the colon. No dilated small bowel loops. RAD/Lumbar Spine 2 or 3 Views IMPRESSION: No acute findings in the lumbar spine. Electronically Signed: Malka Lancaster MD at 7:22 EST ,
[2023-10-28] MEDS: 0.9% Normal Saline (1000mL) 1,000 ML 150 ML IV (07:10)
[2023-10-28 07:17] LABS: Absolute Lymphocyte Count 2.28 X10^3/uL (0.83-4.51); Absolute Neutrophil Count 3.8 X10^3/uL (2.0-7.7); Basophil# 0.02 X10^3/uL; Basophil% 0.3 % (0-1); Eosinophil# 0.09 X10^3/uL; Eosinophils% 1.4 % (0-5); Hematocrit 39.9 % (37-47); Hemoglobin 13.2 g/dL (12.0-15.0); Lymphocyte # 2.28 X10^3/ul (0.83-4.51); Lymphocyte % 34.8 % (19-41); Mean Corp Hgb Conc 33.1 g/dL (32-36); Mean Corpuscular Hgb 29.5 pg (27.0-32.0); Mean Corpuscular Volume 89.1 fL (81-99); Mean Platelet Vol. 11.4 fl (6.2-12.0); Monocyte# 0.36 X10^3/uL; Monocyte% 5.5 % (0-10); NRBC Flagged by Analyzer 0 % (0-5); Neutrophil # 3.79 X10^3/uL (2.7-7.7); Neutrophil % 57.7 % (47-70); Platelet Count 228 K/mm3 (150-450); RBC Distribution Width CV 13.5 % (11.6-14.6); RBC Distribution Width SD 44.1 fl (35.1-43.9); Red Blood Count 4.48 M/mm3 (4.2-5.4); White Blood Count 6.6 K/mm3 (4.4-11.0)
[2023-10-28 07:33] LABS: Anion Gap 4 (5-15); BUN 9 mg/dL (7-18); BUN/Creat Ratio 9.7 RATIO (10-20); Calcium,Total 9.9 mg/dL (8.5-10.1); Chloride 108 mmol/L (98-107); Creatinine, Serum 0.93 mg/dL (0.55-1.02); EST Glomerular Filtration Rate 74 mL/min (>60); Est Glom Filt Rate - Afr Amer 89 mL/min (>60); Estimated Creatinine Clearance 71.17 ml/min; Glucose 102 mg/dL (74-106); Potassium 3.6 mmol/L (3.5-5.1); Sodium Level 140 mmol/L (136-145)
[2023-10-28 07:50] LABS: Partial Thromboplast Time 30.5 Seconds (24.1-36.2)
--- NOTE | 2023-10-28 08:01 | CT_ITS ---
INDICATION: left sided weakness EXAMINATION: CTA HEAD - CTA Head and Neck W/ Contrast Injection (and W/O Contrast Images if performed) TECHNIQUE: [place]/head CT angiogram protocol was performed following IV contrast. Routine carotid CT angiogram protocol was performed without and with IV contrast. NASCET criteria using the distal ICAs for comparison were used for evaluation of stenoses. 3D reconstructions were reviewed of the CT angiogram head and neck. A radiation dose optimization technique was used for this scan. IV Contrast dosage and agent: 100 mL of Isovue-370. COMPARISON: CTA head and neck with contrast 09/22/2021. FINDINGS: --Anterior cerebral circulation: ACAs: No significant stenosis at the visualized segments. ACOM: Present. MCAs: No significant stenosis at the visualized segments. --Posterior cerebral circulation: PCOMs: Normal right posterior communicating artery. No visible left posterior communicating artery. 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 BASILAR ARTERY: No significant stenosis. --Carotid and vertebral circulation: AORTIC ARCH AND BRANCHES: Normal anatomy, patent. RIGHT CCA: No occlusion, significant stenosis or dissection. RIGHT ICA: No occlusion, significant stenosis or dissection. LEFT CCA: No occlusion, significant stenosis or dissection. LEFT ICA: No occlusion, significant stenosis or dissection. RIGHT VERTEBRAL ARTERY: No occlusion, significant stenosis or dissection. LEFT VERTEBRAL ARTERY: No occlusion, significant stenosis or dissection. NECK SOFT TISSUES: Unremarkable. LUNG APICES: Clear. BONES: Unremarkable. CT/CTA Head AND Neck W/ Contrast IMPRESSION: Negative CTA Head and CTA Neck and unchanged when compared to 09/22/2021. Electronically Signed: Hayder Fay MD at 9:22 EST ,
[2023-10-28 08:13] VITALS: BP 134/78; PULSE 64; RESP 18; O2SAT 99
[2023-10-28] MEDS: Ondansetron ODT 4 MG Tablet PO (08:19)
--- NOTE | 2023-10-28 09:18 | EX.ED.DYSGE1 ---
HPI History of Present Illness Chief Complaint: Fall Informant: patient Onset/Context/Timing Onset: Today Narrative Narrative: Fall patient's initial complaint is fall. She states that 2 hours prior to arrival she fell after getting up from the commode. She states after sitting on the commode she stood up and her left leg was slightly tingly which caused her to be off balance and she fell striking the concrete floor. She states since that fall her left arm feels weak and tingly as well. She also has a headache. She does complain of pain to her right third finger and states that she stubbed it when she fell. [facility] Medical History Alcohol use Anxiety Back pain Bilateral renal stones Bipolar disorder Cardiology follow-up encounter Chronic interstitial cystitis Conversion disorder Depression Easy bruising Endometriosis Environmental and seasonal allergies Fatty liver Fibromyalgia Gastric reflux High cholesterol History of cervical cancer History of echocardiogram History of edema History of renal disease History of stress test Hypertension Kidney stone Left renal stone Leg cramps Marijuana use Migraine Peptic ulcer of stomach Restless legs Smoker Syncope Wears dentures Wears glasses Home Medications albuterol sulfate 90 mcg/actuation aerosol inhaler (Ventolin HFA) 2 puff inhalation Q6H PRN Shortness Of Breath 09/22/21 [History Last Taken Unknown] diphenhydramine HCl 50 mg capsule 50 mg PO Q6H PRN Allergic Symptoms 09/22/21 [History Last Taken Unknown] dupilumab 300 mg/2 mL subcutaneous syringe (Dupixent) 300 mg subcut .[id number] 09/22/21 [History Last Taken Unknown] escitalopram oxalate 20 mg tablet (Lexapro) 20 mg PO DAILY 09/22/21 [History Last Taken Unknown] fluticasone propionate 50 mcg/actuation nasal spray,suspension 1 spray intranasal DAILY ALLERGIES 09/22/21 [History Last Taken Unknown] omeprazole 40 mg capsule,delayed release 40 mg PO DAILY 09/22/21 [History Last Taken Unknown] tizanidine 4 mg capsule 4 mg PO Q8H PRN Back Pain 09/22/21 [History Last Taken Unknown] propranolol 10 mg tablet 10 mg PO DAILY BP 12/26/21 [History Last Taken Unknown] quetiapine 50 mg tablet,extended release 24 hr 100 mg PO DAILY 01/30/23 [History Last Taken Unknown] pregabalin 75 mg capsule 75 mg PO Q8H 09/15/23 [History Last Taken Unknown] hydrocodone-acetaminophen 5-325mg 5mg-325mg 1 tab PO Q6H PRN PRN Pain 3 days #10 TABLETS 09/29/23 [Rx Last Taken Unknown] hydrocodone-acetaminophen 5-325mg 5mg-325mg 1 tab PO Q6H PRN PRN Pain 3 days #10 TABLETS 10/07/23 [Rx Last Taken Unknown] cephalexin 500 mg capsule 500 mg PO Q6 #28 CAPSULES 10/19/23 [Rx Last Taken Unknown] ondansetron 4 mg disintegrating tablet 4 mg PO Q8H PRN PRN Nausea #10 tabs 10/24/23 [Rx Last Taken Unknown] Allergy/AdvReac Type Severity Reaction Status Date / Time amitriptyline Allergy MUSCLE Verified 10/24/23 20:51 SPASMS Bleach (Sodium Hypochlorite) Allergy Hives Verified 10/24/23 20:51 codeine Allergy Hives Verified 10/24/23 20:51 ketorolac [From Toradol] Allergy Itching Verified 10/24/23 20:51 nitrofurantoin Allergy Anaphylaxis Verified 10/24/23 20:51 [From Macrodantin] doxycycline AdvReac Vomiting Verified 10/24/23 20:51 Family History Mother Hypertension Migraine Grandmother CVA (cerebral vascular accident) Grandfather Diabetes Father Myocardial infarction Surgical History History of cystoscopy History of hysterectomy Hx of cholecystectomy S/P laparoscopic surgery Social History household members: significant other Smoking Status: Current every day smoker tobacco type: e-cigarettes alcohol intake: current details: occasionally substance use type: does not use caffeine: Yes what type of physical activity do you participate in: walking frequency: 1-2 times per week seatbelt use: always do you feel safe at home: Yes additional social history: Single ROS ROS ED Constitutional Constitutional ED: Denies chills or fever(s) Eyes Eyes: Denies discharge from eye(s) ENT ENT ED: Denies discharge from eye(s), rhinorrhea or sore throat Cardiovascular Cardiovascular: Denies chest pain or palpitations Respiratory/Chest Respiratory/Chest: Denies cough or dyspnea Gastrointestinal Gastrointestinal: Reports nausea; Denies abdominal pain or vomiting Genitourinary Genitourinary ED: Denies dysuria Musculoskeletal Musculoskeletal: Reports extremity pain; Denies back pain Integumentary Denies Abrasions or rash Neurologic Neurologic: Reports paresthesias and weakness; Denies headache(s) Psychiatric Psychiatric: Denies anxiety or depression Allergic/Immunologic Allergic/Immunologic ED: Denies lip swelling or urticaria EXAM Physical Exam Const Vital Signs: 10/28/23 06:04 10/28/23 06:09 10/28/23 08:13 Temperature 97.4 F L Temperature Source Temporal Pulse Rate 80 64 Respiratory Rate 15 18 Respiratory Effort Normal Non-Labored Respiratory Depth Normal Respiratory Pattern Normal Blood Pressure 157/109 H 134/78 H Blood Pressure Mean 125 96 Pulse Ox 97 99 Oxygen Delivery Method Room Air Room Air Room Air Positive well nourished and well developed General Appearance ED: well developed HEENT Reports moist mucous membranes HEENT Narrative: No external sign of trauma. Eyes PERRL and EOMs intact bilaterally Chest Wall inspection of chest normal and palpation of chest normal Resp normal respiratory effort and clear to auscultation bilaterally Cardio regular rate and regular rhythm GI non-tender Palpation: soft Extremity normal to inspection Neuro oriented x3 Neuro Narrative: Patient has equal hand grasp bilaterally. She does have slight weakness of the left upper extremity, however I feel this is likely related to effort. Patient reports decreased sensation to touch on the left arm and left leg. Sensorium / Orientation: alert Psych mental status grossly normal Skin no rashes or lesions noted MDM MDM MDM Narrative Medical decision making narrative: She does notPatient initially sent for CT scan of the head and C-spine to evaluate for fracture, bleed, edema. Lumbar spine x-rays obtained to evaluate for acute bony malalignment and right hand x-ray obtained to evaluate for fracture. CT scan of the head reveals no acute findings. CT scan of the C-spine reveals no fracture. Right hand x-ray per my interpretation reveals no evidence of bony fracture. Radiology interpretation is reviewed: Soft tissue swelling. Lumbar spine x-rays per my interpretation reveal no acute abnormalities. Radiology interpretation reviewed and agrees. Patient now is telling me that her left arm numbness and weakness started prior to her fall. She now states that the left arm and leg symptoms started around midnight. She states that she has had a TIA previously with similar symptoms. At that time lab work is initiated and patient sent for CTA of the head and neck. CBC was normal white count at 6.6 with a hemoglobin of 13.2. Coags unremarkable. Chemistry studies normal. EKG is sinus rhythm with no acute ischemia. CTA of the head and neck is normal. We have tried to do the patient's bedside swallow test twice. She states she feels like she is choking and cannot swallow applesauce feels she can tolerate p.o. medication. She is repeatedly asking for pain medication. I advised her I would not give her narcotics and she reports a allergy to Toradol. Patient states her previous TIA was worked up at [facility] in [place] approximately 13 years ago. I will speak with hospitalist at this time. At this time her NIH score is 3, 1 point for left arm weakness, 1 point for left leg weakness, 1 point for paresthesias. Of note, I do have concern about lack of effort on her part in the testing. History & Record Review Discussion w/independent historian: Patient Additional record(s) reviewed:: Prior ED visit Lab Data Labs: Laboratory Results - last 24 hr 10/28/23 07:05 WBC 6.6 RBC 4.48 Hgb 13.2 Hct 39.9 MCV 89.1 MCH 29.5 MCHC 33.1 RDW Std Deviation 44.1 H RDW Coeff of Romario 13.5 Plt Count 228 MPV 11.4 Immature Gran % (Auto) 0.300 Neut % (Auto) 57.7 Lymph % (Auto) 34.8 [place] % (Auto) 5.5 Eos % (Auto) 1.4 Baso % (Auto) 0.3 Absolute Neuts (auto) 3.8 Absolute Lymphs (auto) 2.28 Nucleated RBC % 0 PT 13.0 INR 1.0 APTT 30.5 Sodium 140 Potassium 3.6 Chloride 108 H Carbon Dioxide 28.0 Anion Gap 4 L BUN 9 Creatinine 0.93 Estim Creat Clear Calc 71.17 Est GFR (MDRD) Af Amer 89 Est GFR (MDRD) Non-Af 74 BUN/Creatinine Ratio 9.7 L Glucose 102 Calcium 9.9 Radiography Diagnostic Testing: Clinical Impression(s) from Imaging Studies Brain CT 10/28/23 06:12 IMPRESSION: Negative head/brain CT without intravenous contrast. Electronically Signed: Malka Lancaster MD at 6:44 EST , Cervical Spine CT 10/28/23 06:12 IMPRESSION: No acute findings in the cervical spine. Electronically Signed: Malka Lancaster MD at 7:17 EST , Hand X-Ray 10/28/23 06:12 IMPRESSION: Soft tissue swelling. Electronically Signed: Malka Lancaster MD at 7:20 EST , Lumbar Spine X-Ray 10/28/23 06:12 IMPRESSION: No acute findings in the lumbar spine. Electronically Signed: Malka Lancaster MD at 7:22 EST , Head/Neck CTA 10/28/23 08:01 IMPRESSION: Negative CTA Head and CTA Neck and unchanged when compared to 09/22/2021. Electronically Signed: Hayder Fay MD at 9:22 EST , EKG Initial EKG: Attestation: I personally reviewed and interpreted this EKG as follows: Interpretation: Sinus Rhythm (Sinus at 68 with no acute ischemia.) Discharge Plan Triage Chief Complaint: Fall ED Provider: Makayla Mecnhaca Dx/Rx/DC Orders Clinical Impression: Paresthesias, Difficulty in swallowing Prescriptions: No Action propranolol 10 mg tablet 10 mg PO DAILY diphenhydramine HCl 50 mg Capsule 50 mg PO Q6H PRN (Reason: Allergic Symptoms) omeprazole 40 mg Capsule,Delayed Release(Dr/Ec) 40 mg PO DAILY albuterol sulfate [Ventolin HFA] 90 mcg/actuation Hfa Aerosol Inhaler 2 puff INHALATION Q6H PRN (Reason: Shortness Of Breath) fluticasone propionate 50 mcg/actuation [place],Suspension 1 spray INTRANASAL DAILY escitalopram oxalate [Lexapro] 20 mg Tablet 20 mg PO DAILY tizanidine 4 mg Capsule 4 mg PO Q8H PRN (Reason: Back Pain) Dupixent Syringe 300 mg/2 mL Syringe 300 mg SUBCUT .[id number] Rx Instructions: EVERY 2 WEEKS quetiapine 50 mg tablet extended release 24 hr 100 mg PO DAILY hydrocodone-acetaminophen [hydrocodone-acetaminophen] 5-325 mg tablet 1 tab PO Q6H PRN PRN (Reason: Pain) 3 Days Qty: 10 0RF hydrocodone-acetaminophen 5-325 mg tablet 1 tab PO Q6H PRN PRN (Reason: Pain) 3 Days Qty: 10 0RF cephalexin [cephalexin] 500 mg capsule 500 mg PO Q6 Qty: 28 0RF pregabalin 75 mg capsule 75 mg PO Q8H Patient Comments: TAKE 1 CAPSULE BY MOUTH THREE TIMES DAILY ondansetron 4 mg tablet,disintegrating 4 mg PO Q8H PRN PRN (Reason: Nausea) Qty: 10 0RF Primary Care Provider: Elizabeth Spear NP Referrals: Elizabeth Spear NP, ORDER ENTRY CLERK-C [Primary Care Provider] - Disposition Disposition: Acute Care Hospital [facility]
--- NOTE | 2023-10-28 09:37 | ED.RN ---
dr. nagel updated on repeat swallow eval. pt. states it hurts to swallow. when asked further. pt states it hurts the side of the face.
--- NOTE | 2023-10-28 09:48 | NURSING ---
DR VITALE FOR DR SMITH
--- NOTE | 2023-10-28 09:59 | NURSING ---
PCU WINIFRED DYSPHAGIA, PARESTHESIAS
[2023-10-28 10:15] VITALS: BP 144/78; PULSE 80; RESP 16; O2SAT 98
--- NOTE | 2023-10-28 10:16 | HP.PCM.HOS_ITS ---
[facility] - General General Date of Service: 10/28/23 Chief Complaint: left sided weakness. [facility] Narrative JOVANNI BUSTILLO, is a 33 F who presents for fall earlier this morning, around 0030, patient experienced left shoulder pain. Then around 0300, she experienced paresthesias in her left upper extremity and lower extremity. She attempted get up and fell. Patient was evaluated in the emergency room and underwent a head neck CTA, lumbar spine x-ray, hand x-ray, cervical spine and brain CT that were unremarkable. They tried doing a bedside swallow evaluation and the patient was able to drink water but anything thicker than that she was unable to swallow. Patient denies any history of issues with swallowing before. Patient denies any history of paresthesias in her left side before. Patient does have a history of fibromyalgia in her low back which she sees a Dr. Supa Hernández for. [facility] Medical History Alcohol use Anxiety Back pain Bilateral renal stones Bipolar disorder Cardiology follow-up encounter Chronic interstitial cystitis Conversion disorder Depression Easy bruising Endometriosis Environmental and seasonal allergies Fatty liver Fibromyalgia Gastric reflux High cholesterol History of cervical cancer History of echocardiogram History of edema History of renal disease History of stress test Hypertension Kidney stone Left renal stone Leg cramps Marijuana use Migraine Peptic ulcer of stomach Restless legs Smoker Syncope Wears dentures Wears glasses Home Medications albuterol sulfate 90 mcg/actuation aerosol inhaler (Ventolin HFA) 2 puff inhalation Q6H PRN SHORTNESS OF BREATH 09/22/21 [History Last Taken Unknown] diphenhydramine HCl 50 mg capsule 50 mg PO Q6H PRN Allergic Symptoms 09/22/21 [History Last Taken 10/24/23] dupilumab 300 mg/2 mL subcutaneous syringe (Dupixent) 300 mg subcut Q14D ECZ[place] 09/22/21 [History Last Taken Unknown] escitalopram oxalate 20 mg tablet (Lexapro) 20 mg PO DAILY 09/22/21 [History Last Taken 10/27/23] fluticasone propionate 50 mcg/actuation nasal spray,suspension 1 spray intranasal DAILY ALLERGIES 09/22/21 [History Last Taken Unknown] omeprazole 40 mg capsule,delayed release 40 mg PO DAILY 09/22/21 [History Last Taken 10/27/23] propranolol 10 mg tablet 10 mg PO DAILY Blood pressure 12/26/21 [History Last Taken 10/27/23] quetiapine 50 mg tablet,extended release 24 hr 100 mg PO QHS MOOD 01/30/23 [History Last Taken 10/27/23] pregabalin 75 mg capsule 75 mg PO TID 09/15/23 [History Last Taken 10/27/23] hydrocodone-acetaminophen 5-325mg 5mg-325mg 1 tab PO Q6H PRN Pain 10/28/23 [History Last Taken Unknown] ondansetron 4 mg disintegrating tablet 4 mg PO Q8H PRN Nausea 10/28/23 [History Last Taken Unknown] tizanidine 4 mg tablet 4 mg PO TID PRN MUSCLE SPASMS 10/28/23 [History Last Taken 10/27/23] Allergy/AdvReac Type Severity Reaction Status Date / Time amitriptyline Allergy MUSCLE Verified 10/24/23 20:51 SPASMS Bleach (Sodium Hypochlorite) Allergy Hives Verified 10/24/23 20:51 codeine Allergy Hives Verified 10/24/23 20:51 ketorolac [From Toradol] Allergy Itching Verified 10/24/23 20:51 nitrofurantoin Allergy Anaphylaxis Verified 10/24/23 20:51 [From Macrodantin] doxycycline AdvReac Vomiting Verified 10/24/23 20:51 Family History Mother Hypertension Migraine Grandmother CVA (cerebral vascular accident) Grandfather Diabetes Father Myocardial infarction Surgical History History of cystoscopy History of hysterectomy Hx of cholecystectomy S/P laparoscopic surgery Social History household members: significant other Smoking Status: Current every day smoker tobacco type: e-cigarettes alcohol intake: current details: occasionally substance use type: does not use caffeine: Yes what type of physical activity do you participate in: walking frequency: 1-2 times per week seatbelt use: always do you feel safe at home: Yes additional social history: Single ROS CHRISTEN Narrative Stated that she is vomiting blood. States that she gets this periodically due to her history of ulcers. Says she is reached out to supervisor broadloom, Dr. Tafoya, who recommended just following up with her as outpatient. Does have a history of endometriosis which did cause her chronic abdominal pain but currently sees pain management for fibromyalgia. All review of systems were negative except as mentioned above in the history of present illness and the [facility] review of systems. Vital Signs Vital Signs Vital Signs: 10/28/23 06:04 10/28/23 06:09 10/28/23 08:13 Temperature 36.3 C L Temperature Source Temporal Pulse Rate 80 64 Respiratory Rate 15 18 Respiratory Effort Normal Non-Labored Respiratory Depth Normal Respiratory Pattern Normal Blood Pressure 157/109 H 134/78 H Blood Pressure Mean 125 96 Pulse Ox 97 99 Oxygen Delivery Method Room Air Room Air Room Air Weight Weight: 97.3 kg Body Mass Index (BMI) 38.0 Physical Exam Const alert and no apparent distress Constitutional Narrative: Flat affect. Afebrile. Nontoxic. HEENT normocephalic HEENT Narrative: Seems to be withholding smile and seems to be exaggerated weakness on the left. Eyes PERRL and EOMs intact bilaterally Resp normal respiratory effort, no retractions, no use of accessory muscles and clear to auscultation bilaterally Cardio regular rate, regular rhythm, S1 normal heart sound and S2 normal heart sound GI normal to inspection, nondistended, normoactive bowel sounds, soft to palpation, non-tender and non-distended Extremity normal to inspection and full ROM Neuro oriented x3 Neuro Narrative: Patient had muscle strength was 5-5 in the right upper and right lower extremity. 4 out of 5 in the left upper and left lower extremity. When she was lifting her left leg up it would waver but then I would put pressure on that and she would maintain the strength of keeping it up. Also noted that the patient was having wobbling of her left upper extremity when holding that up and her finger-nose, however was intact. And when she was distracted and was talking she was using her left arm to accentuate her conversation and had no difficulty moving down at that time. Psych affect normal Results Lab / Micro Data Attestation: I reviewed the patient's lab results. 10/28/23 07:05 10/28/23 07:05 Labs: Laboratory Results - last 24 hr 10/28/23 07:05: WBC 6.6, RBC 4.48, Hgb 13.2, Hct 39.9, MCV 89.1, MCH 29.5, MCHC 33.1, RDW Std Deviation 44.1 H, RDW Coeff of Romario 13.5, Plt Count 228, MPV 11.4, Immature Gran % (Auto) 0.300, Neut % (Auto) 57.7, Lymph % (Auto) 34.8, [place] % (Auto) 5.5, Eos % (Auto) 1.4, Baso % (Auto) 0.3, Absolute Neuts (auto) 3.8, Absolute Lymphs (auto) 2.28, Nucleated RBC % 0, PT 13.0, INR 1.0, APTT 30.5, Sodium 140, Potassium 3.6, Chloride 108 H, Carbon Dioxide 28.0, Anion Gap 4 L, BUN 9, Creatinine 0.93, Estim Creat Clear Calc 71.17, Est GFR (MDRD) Af Amer 89, Est GFR (MDRD) Non-Af 74, BUN/Creatinine Ratio 9.7 L, Glucose 102, Calcium 9.9 EKG Initial EKG: Attestation: I personally reviewed and interpreted this EKG as follows: Prior EKG tracings: available for review EKG Rhythm Intrepretation: Sinus Rhythm Imagaing Radiology Impression Brain CT 10/28/23 06:12 IMPRESSION: Negative head/brain CT without intravenous contrast. Electronically Signed: Malka Lancaster MD at 6:44 EST Reading Location ID and State: [facility] / [place] Tel , Service support , Cervical Spine CT 10/28/23 06:12 IMPRESSION: No acute findings in the cervical spine. Electronically Signed: Malka Lancaster MD at 7:17 EST , Hand X-Ray 10/28/23 06:12 IMPRESSION: Soft tissue swelling. Electronically Signed: Malka Lancaster MD at 7:20 EST , Lumbar Spine X-Ray 10/28/23 06:12 IMPRESSION: No acute findings in the lumbar spine. Electronically Signed: Malka Lancaster MD at 7:22 EST , Head/Neck CTA 10/28/23 08:01 IMPRESSION: Negative CTA Head and CTA Neck and unchanged when compared to 09/22/2021. Electronically Signed: Hayder Fay MD at 9:22 EST , Assessment & Plan Assessment/Plan (1) Paresthesias: PLAN: Suspicion for this being stroke is extremely low. And concern for conversion disorder or fictitious. I did bring up to her that she was able to move her left side when distracted in comparison when I evaluated her if she was having this left-sided weakness. She had no response to it when I brought that up. I told her that we will finish the stroke workup with an MRI of the brain. If that is negative then I would not feel necessary to do any additional workup for this. I did ask her if she feels safe at home she feels unrefreshed from anything. She denies. I told her if she does think of something to let us know so that we can have case management and social work see her. PT and OT (2) Difficulty in swallowing: PLAN: Seems odd overall. Feel this is actually related with a stroke but patient was endorsing the symptoms. I did actually do not feel that this is actually true dysphagia as she is never had this problem before. Nothing such as a stricture or stenosis esophagus that suggest that acutely she has suddenly developed this. That is a possibility but in the context of the above symptoms with paresthesias seems rather suspect. Will have speech therapy evaluate her. PLAN: Plan Reported upper GI bleed. Patient stated that she reached out to her supervisor broadloom, Dr. Tafoya, who will be seeing her as outpatient. Continue with her PPI Chronic pain. Secondary to fibromyalgia, according to the patient. Patient sees a Dr. Cowart at [facility]. Continue with pregabalin. VTE prophylaxis: Low risk given observation status and not indicated. Charges/Coding Visit Charges Inpatient E&M: 24610 Init Hosp L3
--- NOTE | 2023-10-28 11:05 | MRI_ITS ---
HISTORY: left sided weakness. TECHNIQUE: Multiplanar and multisequence MR images of the brain were obtained without contrast. 279 images. COMPARISON: CT same day. FINDINGS: BRAIN PARENCHYMA: No significant signal abnormality in the brain parenchyma. No abnormal focus of restricted diffusion. No acute intracranial hemorrhage identified. CSF SPACES: Cerebral ventricles, cortical sulci, and other extra-axial CSF spaces within normal limits in size for age. No significant midline shift or other mass effect.No extra-axial fluid collection. VASCULAR SYSTEM: Major intracranial flow voids are maintained. PARANASAL SINUSES AND MASTOID AIR CELLS: No significant air fluid levels. ORBITS: Symmetric contents. MRI/Brain without Contrast IMPRESSION: Unremarkable examination. No evidence for acute infarct or other significant signal abnormality in the brain. Electronically Signed: Tamra Lees MD at 13:33 EST ,
[2023-10-28 11:06] VITALS: BMI 36.5
[2023-10-28 11:19] VITALS: BP 138/92; PULSE 81; RESP 16; TEMP 36.9; O2SAT 94
[2023-10-28] MEDS: Acetaminophen 325 MG Tablet 650 MG PO (11:44)
[2023-10-28 15:00] LABS: Magnesium 2.2 mg/dL (1.6-2.6); Phosphorus 3.6 mg/dL (2.5-4.9)
[2023-10-28 16:14] VITALS: BP 142/90; PULSE 98; RESP 16; TEMP 36.6; O2SAT 98
--- NOTE | 2023-10-28 16:48 | PCM.DC.SUM ---
Providers Date of Admission: 10/28/23 Primary Care Physician: Elizabeth Spear NP Reason For Visit: LEFT SIDED WEAKNESS Diagnosis Discharge Diagnosis (1) Paresthesias: Status: Acute Code(s): R20.2 - Paresthesia of skin Plan: Suspicion for this being stroke is extremely low. And concern for conversion disorder or fictitious. I did bring up to her that she was able to move her left side when distracted in comparison when I evaluated her if she was having this left-sided weakness. She had no response to it when I brought that up. I told her that we will finish the stroke workup with an MRI of the brain. If that is negative then I would not feel necessary to do any additional workup for this. I did ask her if she feels safe at home she feels unrefreshed from anything. She denies. I told her if she does think of something to let us know so that we can have case management and social work see her. PT and OT MRI of her brain was negative. Patient states that upon further inquiry that she has had this from before and was told initially was due to TIA but told by her psychiatrist that was due to conversion disorder from her anxiety. No additional workup is necessary. (2) Difficulty in swallowing: Status: Acute Code(s): R13.10 - Dysphagia, unspecified Plan: Seems odd overall. Feel this is actually related with a stroke but patient was endorsing the symptoms. I did actually do not feel that this is actually true dysphagia as she is never had this problem before. Nothing such as a stricture or stenosis esophagus that suggest that acutely she has suddenly developed this. That is a possibility but in the context of the above symptoms with paresthesias seems rather suspect. Will have speech therapy evaluate her. This appears to be more functional rather than actually organic as this began suddenly. Patient unable to take anything solid but this seems willfully. I did discuss with speech therapy who recommended GI evaluation however with the likelihood of this being all due to conversion disorder I do not feel any additional workup is necessary. Patient may advance her diet as tolerated. She has a mechanical project manager already and she may follow-up with him as outpatient. Plan Migraine: Patient complaining of a migraine now. Concerned that she may actually not be having a migraine but will give her benefit. Will give a dose of 10 mg of dexamethasone. Patient aware that she will not receive any narcotics from me. Reported upper GI bleed. Patient stated that she reached out to her mechanical project manager, Dr. Tafoya, who will be seeing her as outpatient. Continue with her PPI Chronic pain. Secondary to fibromyalgia, according to the patient. Patient sees a Dr. Cowart at [facility]. Continue with pregabalin. VTE prophylaxis: Low risk given observation status and not indicated. Medications at Discharge Home Medications albuterol sulfate 90 mcg/actuation aerosol inhaler (Ventolin HFA) 2 puff inhalation Q6H PRN SHORTNESS OF BREATH 09/22/21 diphenhydramine HCl 50 mg capsule 50 mg PO Q6H PRN SEASONAL ALERGIES 09/22/21 dupilumab 300 mg/2 mL subcutaneous syringe (Dupixent) 300 mg subcut Q14D ECZEMA 09/22/21 escitalopram oxalate 20 mg tablet (Lexapro) 20 mg PO DAILY DEPRESSION 09/22/21 fluticasone propionate 50 mcg/actuation nasal spray,suspension 1 spray intranasal DAILY PRN SEASONAL ALLERGIES 09/22/21 omeprazole 40 mg capsule,delayed release 40 mg PO DAILY ACID REFLUX 09/22/21 propranolol 10 mg tablet 10 mg PO DAILY BLOOD PRESSURE 12/26/21 quetiapine 50 mg tablet,extended release 24 hr 100 mg PO QHS MOOD 01/30/23 pregabalin 75 mg capsule 75 mg PO TID PAIN 09/15/23 ondansetron 4 mg disintegrating tablet 4 mg PO Q8H PRN NAUSEA 10/28/23 tizanidine 4 mg tablet 4 mg PO TID PRN MUSCLE SPASMS 10/28/23 Hospital Course Operations None Procedures None Summary of Care Provided Minutes Spent on Discharge: 75 Hospital Course: Patient presents after reportedly falling. Hitting her head. Patient complained of left-sided weakness. On exam, patient was having giveaway weakness on her left side and then when distracted she would move her left side in order to speak without any difficulty. MRI of her brain was negative. Went back into her room patient told the nursing before the nurse had an opportunity even introduce herself that she wanted a different doctor. I did tell her that I was concerned that this is actually not stroke. When I went back and reevaluated patient stated that she had similar in the past and was told initially TIA and then conversion disorder. I told her that this is more likely conversion disorder or fictitious. I did mention that she keeps on stacking on new complaints the longer she is here now complaining of a migraine, GI bleed amongst others. Asking Nursing for Pain Medications. Is Very concerning That Patient Is Misusing the Hospital Services. Patient Did See Speech Therapy and Was Able to Drink Thin Liquids but Would Not Tolerate Others. Speech Therapy Did Recommend a GI Evaluation. Discussed with Speech Therapy and [place] That This Was Inappropriate As I Am Confirmed That This Is Likely Conversion or Factitious. I Did Not Asked the Patient If She Was Feeling Suicidal and She Denied That. This Was in the Presence of Her Nurse. Patient Will Receive a Dose of Dexamethasone before Discharge. Weight / BMI Weight Weight: 95.3 kg Body Mass Index (BMI) 36.5 ABG / Lab / Microbiology Data 10/28/23 07:05 10/28/23 07:05 Laboratory: Laboratory Results - last 24 hr 10/28/23 07:05: WBC 6.6, RBC 4.48, Hgb 13.2, Hct 39.9, MCV 89.1, MCH 29.5, MCHC 33.1, RDW Std Deviation 44.1 H, RDW Coeff of Romario 13.5, Plt Count 228, MPV 11.4, Immature Gran % (Auto) 0.300, Neut % (Auto) 57.7, Lymph % (Auto) 34.8, [place] % (Auto) 5.5, Eos % (Auto) 1.4, Baso % (Auto) 0.3, Absolute Neuts (auto) 3.8, Absolute Lymphs (auto) 2.28, Nucleated RBC % 0, PT 13.0, INR 1.0, APTT 30.5, Sodium 140, Potassium 3.6, Chloride 108 H, Carbon Dioxide 28.0, Anion Gap 4 L, BUN 9, Creatinine 0.93, Estim Creat Clear Calc 71.17, Est GFR (MDRD) Af Amer 89, Est GFR (MDRD) Non-Af 74, BUN/Creatinine Ratio 9.7 L, Glucose 102, Calcium 9.9, Phosphorus 3.6, Magnesium 2.2 Radiography Diagnostic Testing: Radiology Impression Brain CT 10/28/23 06:12 IMPRESSION: Negative head/brain CT without intravenous contrast. Electronically Signed: Malka Lancaster MD at 6:44 EST , Cervical Spine CT 10/28/23 06:12 IMPRESSION: No acute findings in the cervical spine. Electronically Signed: Malka Lancaster MD at 7:17 EST , Hand X-Ray 10/28/23 06:12 IMPRESSION: Soft tissue swelling. Electronically Signed: Malka Lancaster MD at 7:20 EST , Lumbar Spine X-Ray 10/28/23 06:12 IMPRESSION: No acute findings in the lumbar spine. Electronically Signed: Malka Lancaster MD at 7:22 EST , Head/Neck CTA 10/28/23 08:01 IMPRESSION: Negative CTA Head and CTA Neck and unchanged when compared to 09/22/2021. Electronically Signed: Hayder Fay MD at 9:22 EST , Brain MRI 10/28/23 11:05 IMPRESSION: Unremarkable examination. No evidence for acute infarct or other significant signal abnormality in the brain. Electronically Signed: Tamra Lees MD at 13:33 EST , D/C Instructions Discharge Diet: No restrictions (liquid diet, advance as tolerated. ) Meaningful Use Info Meaningful Use Diagnoses (Choose all that apply): None applicable Discharge Plan Admission Admit Date/Time: 10/28/23 10:12 Primary Reason for Your Visit: migraine Attending Provider: Gage Knight Primary Care Provider: Elizabeth Spear NP Instructions Additional Instructions / Restrictions: Your MRI of the brain was negative for stroke. You seem to move your left side appropriately. This may be due to conversion disorder as your psychiatrist has told you in the past. I do recommend that you follow-up with your psychiatrist as outpatient as well as your mechanical project manager. Please return if you are actually vomiting blood or having blood in your stool. Follow up with Dr. Cowart as outpatient. Discharge Orders/Prescriptions Prescriptions: Continued propranolol 10 mg tablet 10 mg PO DAILY diphenhydramine HCl 50 mg Capsule 50 mg PO Q6H PRN (Reason: SEASONAL ALERGIES ) omeprazole 40 mg Capsule,Delayed Release(Dr/Ec) 40 mg PO DAILY albuterol sulfate [Ventolin HFA] 90 mcg/actuation Hfa Aerosol Inhaler 2 puff INHALATION Q6H PRN (Reason: SHORTNESS OF BREATH ) fluticasone propionate 50 mcg/actuation [place],Suspension 1 spray INTRANASAL DAILY PRN (Reason: SEASONAL ALLERGIES) escitalopram oxalate [Lexapro] 20 mg Tablet 20 mg PO DAILY quetiapine 50 mg tablet extended release 24 hr 100 mg PO QHS pregabalin 75 mg capsule 75 mg PO TID Patient Comments: PT STATES THAT THEY USUALLY ONLY TAKE THIS AT BEDTIME BECAUSE IT MAKES THEM A ZOMBIE ( OF 10-28-23) tizanidine 4 mg tablet 4 mg PO TID PRN (Reason: MUSCLE SPASMS ) Patient Comments: PT STATES THAT THEY USUALLY TAKE ALL THREE TABLETS TOGETHER ONCE DAILY AT BEDTIME BECAUSE IT MAKES THEM DROWSY ( OF 10-28-23) ondansetron 4 mg tablet,disintegrating 4 mg PO Q8H PRN (Reason: NAUSEA ) Held Dupixent Syringe 300 mg/2 mL Syringe 300 mg SUBCUT Q14D Hold Instructions: Resume when ordering physician feels it can be restarted. Rx Instructions: EVERY 2 WEEKS Discontinued hydrocodone-acetaminophen [hydrocodone-acetaminophen] 5-325 mg tablet 1 tab PO Q6H PRN (Reason: PAIN ) Patient Comments: PT STATES HAS MEDICATION AT HOME BUT HAS NOT HAD TO USE YET ( OF 10-28-23) Referrals / Follow Up: Elizabeth Spear COATINGS INSPECTOR, COATINGS INSPECTOR-C [Primary Care Provider] - Within 2 Weeks Disposition Disposition (needs filled in before D/C Order can be placed): Home, Self Care Charges/Coding Visit Charges OBSV E&M: 18036 Observ/hosp same date L3
[2023-10-28] MEDS: dexAMETHasone 10 MG/ML Vial IV (17:30)
== END 2023-10-28 16:56 | disposition home or self-care (01) ==
LOC: ED 09:41 → PCU 15:12
PROVIDERS: Emergency Provider Emergency Medicine; PCP Nurse Practitioner Primary Care
DX: R20.2 Paresthesia of skin (principal); F31.9 Bipolar disorder, unspecified; M79.7 Fibromyalgia; M79.89 Other specified soft tissue disorders; F17.290 Nicotine dependence, other tobacco product, uncomplicated; R13.10 Dysphagia, unspecified; R53.1 Weakness; R29.898 Other symptoms and signs involving the musculoskeletal system; G43.909 Migraine, unspecified, not intractable, without status migrainosus; E78.00 Pure hypercholesterolemia, unspecified; K21.9 Gastro-esophageal reflux disease without esophagitis; I10 Essential (primary) hypertension; Z79.899 Other long term (current) drug therapy
CPT/HCPCS: 70450; 70496; 70498; 70551; 72100; 72125; 73130; 80048; 83735; 84100; 85025; 85610; 85730; 92610; 93005; 96361; 96374; 97162; 97802; 99285; J7030; Q9967

== ENCOUNTER 2023-10-31 22:21 | Emergency (ER) | payer MEDICAID, SELFPAY ==
[2023-10-31 22:21] VITALS: BP 160/107; PULSE 103; RESP 16; TEMP 36.1; O2SAT 97; BMI 37.0
--- NOTE | 2023-10-31 23:09 | CT_ITS ---
EXAM: CT ABDOMEN AND PELVIS WITHOUT IV CONTRAST - CT Abdomen And Pelvis W/O Contrast Injection HISTORY: flank pain BACK PAIN HX:GERD,HLD,CERVICAL CANCER,KIDNEY STONES,UTI''S SURGERY:KS RETRIVAL,CHOLECYSTECTOMY,HYSTERECTO TECHNIQUE: Routine protocol CT abdomen and pelvis. IV Contrast: None.. Oral contrast: None. RADIATION DOSAGE (If Supplied By Facility): CTDIvol = ( 19.07 ) mGy, DLP = ( 990.90 ) mGycm Individualized dose optimization techniques were used for this CT. COMPARISON: CT abdomen and pelvis 10/19/2023. LIMITATIONS: None. FINDINGS: LOWER CHEST: Minimal dependent atelectasis in the lung bases. LIVER: Enlarged. Fatty infiltration. GALLBLADDER AND BILIARY TREE: Gallbladder not visualized presumed surgically absent. PANCREAS: Grossly unremarkable. SPLEEN: Grossly unremarkable. ADRENAL GLANDS: Grossly unremarkable. KIDNEYS AND URETERS: No calculi demonstrated. No hydronephrosis. PERITONEUM: No free air. No free fluid. BOWEL: No bowel obstruction. APPENDIX: Visualized and unremarkable. No evidence of acute appendicitis. VESSELS: Abdominal aorta is normal caliber. REPRODUCTIVE ORGANS: Uterus surgically absent. URINARY BLADDER: Grossly unremarkable. ABDOMINAL WALL: Unremarkable. BONES: No acute abnormalities. CT/Abdomen/Pelvis without Cont IMPRESSION: No acute findings. Electronically Signed: Traci Gonzalez MD at 1:37 EST ,
[2023-10-31 23:32] LABS: Bacteria 0 SEEN /hpf (None Seen); Mucous, Urine 0 SEEN /hpf (<or=2+); Red Blood Cells-Urine 0 SEEN /hpf (0-5); White Blood Cells 0 SEEN /hpf (0-5)
[2023-10-31 23:34] LABS: Color, Urine Yellow (Yellow); Glucose, Dipstick Normal (Normal); Ketone-Dipstick Negative (Negative); Leukocyte Esterase-Dipstick 25 /ul (Negative); Nitrite-Dipstick Negative (Negative); Occult Blood-Urine 10 /ul (Negative); Protein-Dipstick Negative (Negative); Urine Bilirubin Dipstick Negative (Negative); Urine Clarity Clear (Clear); Urine Urobilinogen Normal (Normal)
[2023-10-31] MEDS: Morphine 4 MG/ML Syringe IV (23:37)
[2023-10-31] MEDS: 0.9% Normal Saline (1000mL) 1,000 ML 150 ML IV (23:37)
[2023-10-31] MEDS: Ondansetron 4 MG/2 ML Vial IV (23:37)
[2023-10-31 23:38] LABS: Absolute Lymphocyte Count 2.12 X10^3/uL (0.83-4.51); Absolute Neutrophil Count 5.6 X10^3/uL (2.0-7.7); Basophil# 0.03 X10^3/uL; Basophil% 0.4 % (0-1); Eosinophil# 0.02 X10^3/uL; Eosinophils% 0.2 % (0-5); Hematocrit 38.6 % (37-47); Hemoglobin 12.8 g/dL (12.0-15.0); Lymphocyte # 2.12 X10^3/ul (0.83-4.51); Lymphocyte % 25.9 % (19-41); Mean Corp Hgb Conc 33.2 g/dL (32-36); Mean Corpuscular Hgb 29.2 pg (27.0-32.0); Mean Corpuscular Volume 87.9 fL (81-99); Mean Platelet Vol. 11.5 fl (6.2-12.0); Monocyte% 4.9 % (0-10); NRBC Flagged by Analyzer 0 % (0-5); Neutrophil # 5.59 X10^3/uL (2.7-7.7); Neutrophil % 68.2 % (47-70); Platelet Count 224 K/mm3 (150-450); RBC Distribution Width CV 13.4 % (11.6-14.6); Red Blood Count 4.39 M/mm3 (4.2-5.4); White Blood Count 8.2 K/mm3 (4.4-11.0)
[2023-10-31 23:40] LABS: Squamous Epithelial Cells - UA 0-5 SEEN /hpf (5-10)
[2023-10-31 23:41] LABS: Internal QC Validated? YES +Cl - CLEAR BKGD; Pregnancy, Urine Negative Negative
[2023-11-01 00:01] LABS: Anion Gap 6 (5-15); BUN 12 mg/dL (7-18); BUN/Creat Ratio 13.7 RATIO (10-20); Calcium,Total 9.7 mg/dL (8.5-10.1); Chloride 108 mmol/L (98-107); Creatinine, Serum 0.88 mg/dL (0.55-1.02); EST Glomerular Filtration Rate 79 mL/min (>60); Est Glom Filt Rate - Afr Amer 95 mL/min (>60); Estimated Creatinine Clearance 75.22 ml/min; Glucose 110 mg/dL (74-106); Potassium 3.8 mmol/L (3.5-5.1); Sodium Level 140 mmol/L (136-145)
--- NOTE | 2023-11-01 01:16 | EDS_ITS ---
HPI History of Present Illness Chief Complaint: Back Informant: patient Onset/Context/Timing Onset: Today Context: Gradual Onset Narrative Narrative: Patient presents secondary to bilateral flank pain, left greater than right. She reports a history of kidney stones and states that she has increasing back pain today that feels like her kidney stones. She has an appointment to see her PCP on Thursday. [facility] Medical History Alcohol use Anxiety Back pain Bilateral renal stones Bipolar disorder Cardiology follow-up encounter Chronic interstitial cystitis Conversion disorder Depression Easy bruising Endometriosis Environmental and seasonal allergies Fatty liver Fibromyalgia Gastric reflux High cholesterol History of cervical cancer History of echocardiogram History of edema History of renal disease History of stress test Hypertension Kidney stone Left renal stone Leg cramps Marijuana use Migraine Peptic ulcer of stomach Restless legs Smoker Syncope Wears dentures Wears glasses Home Medications albuterol sulfate 90 mcg/actuation aerosol inhaler (Ventolin HFA) 2 puff inhalation Q6H PRN SHORTNESS OF BREATH 09/22/21 [History Last Taken Unknown] diphenhydramine HCl 50 mg capsule 50 mg PO Q6H PRN SEASONAL ALERGIES 09/22/21 [History Last Taken 10/24/23] dupilumab 300 mg/2 mL subcutaneous syringe (Dupixent) 300 mg subcut Q14D ECZEMA 09/22/21 [History Last Taken Unknown] escitalopram oxalate 20 mg tablet (Lexapro) 20 mg PO DAILY DEPRESSION 09/22/21 [History Last Taken 10/27/23] fluticasone propionate 50 mcg/actuation nasal spray,suspension 1 spray intranasal DAILY PRN SEASONAL ALLERGIES 09/22/21 [History Last Taken Unknown] omeprazole 40 mg capsule,delayed release 40 mg PO DAILY ACID REFLUX 09/22/21 [History Last Taken 10/27/23] propranolol 10 mg tablet 10 mg PO DAILY BLOOD PRESSURE 12/26/21 [History Last Taken 10/27/23] quetiapine 50 mg tablet,extended release 24 hr 100 mg PO QHS MOOD 01/30/23 [History Last Taken 10/27/23] pregabalin 75 mg capsule 75 mg PO TID PAIN 09/15/23 [History Last Taken 10/27/23] ondansetron 4 mg disintegrating tablet 4 mg PO Q8H PRN NAUSEA 10/28/23 [History Last Taken Unknown] tizanidine 4 mg tablet 4 mg PO TID PRN MUSCLE SPASMS 10/28/23 [History Last T [place] 10/27/23] hydrocodone-acetaminophen 5-325mg 5mg-325mg 1 tab PO Q8H PRN PRN Pain 1 day #3 TABLETS 11/01/23 [Rx Last Taken Unknown] Allergy/AdvReac Type Severity Reaction Status Date / Time amitriptyline Allergy MUSCLE Verified 10/24/23 20:51 SPASMS Bleach (Sodium Hypochlorite) Allergy Hives Verified 10/24/23 20:51 codeine Allergy Hives Verified 10/24/23 20:51 ketorolac [From Toradol] Allergy Itching Verified 10/24/23 20:51 nitrofurantoin Allergy Anaphylaxis Verified 10/24/23 20:51 [From Macrodantin] doxycycline AdvReac Vomiting Verified 10/24/23 20:51 Family History Mother Hypertension Migraine Grandmother CVA (cerebral vascular accident) Grandfather Diabetes Father Myocardial infarction Surgical History History of cystoscopy History of hysterectomy Hx of cholecystectomy S/P laparoscopic surgery Social History household members: significant other Smoking Status: Current every day smoker tobacco type: e-cigarettes alcohol intake: current details: occasionally substance use type: does not use caffeine: Yes what type of physical activity do you participate in: walking frequency: 1-2 times per week seatbelt use: always do you feel safe at home: Yes additional social history: Single ROS ROS ED Constitutional Constitutional ED: Denies chills or fever(s) Eyes Eyes: Denies change in vision or discharge from eye(s) ENT ENT ED: Denies discharge from eye(s), rhinorrhea or sore throat Cardiovascular Cardiovascular: Denies chest pain or palpitations Respiratory/Chest Respiratory/Chest: Reports cough; Denies dyspnea Gastrointestinal Gastrointestinal: Reports nausea; Denies abdominal pain or vomiting Genitourinary Genitourinary ED: Denies dysuria or urinary frequency Musculoskeletal Musculoskeletal: Reports back pain; Denies extremity pain Integumentary Denies Abrasions or rash Neurologic Neurologic: Denies headache(s) or weakness Psychiatric Psychiatric: Denies anxiety or depression Allergic/Immunologic Allergic/Immunologic ED: Denies lip swelling or urticaria EXAM Physical Exam Const Vital Signs: 10/31/23 22:21 10/31/23 23:47 Temperature 97.0 F L Temperature Source Temporal Pulse Rate 103 H Respiratory Rate 16 Respiratory Effort Normal Respiratory Depth Normal Respiratory Pattern Normal Blood Pressure 160/107 H Blood Pressure Mean 124 Pulse Ox 97 Oxygen Delivery Method Room Air Room Air Positive well nourished and well developed General Appearance ED: well developed HEENT Reports moist mucous membranes Eyes EOMs intact bilaterally Resp clear to auscultation bilaterally Cardio regular rate and regular rhythm GI soft to palpation and non-tender Back/Spine Back/Spine Narrative: Mild left CVA tenderness. Extremity normal to inspection Neuro oriented x3 and no sensory deficits noted Motor Exam: strength 5/5 throughout Psych mental status grossly normal Skin no rashes or lesions noted MDM MDM MDM Narrative Medical decision making narrative: IV line initiated. Patient given morphine and Zofran. Labwork obtained to evaluate for leukocytosis, anemia, and electrolyte derangement. Urinalysis obtained to evaluate for infection/hematuria. CT flank obtained to evaluate for possible kidney stone. History & Record Review Discussion w/independent historian: Patient Additional record(s) reviewed:: Prior inpatient record, Prior ED visit and Prior labs Lab Data Attestation: I reviewed the patient's lab results. Labs: Laboratory Results - last 24 hr 10/31/23 10/31/23 23:27 23:30 WBC 8.2 RBC 4.39 Hgb 12.8 Hct 38.6 MCV 87.9 MCH 29.2 MCHC 33.2 RDW Std Deviation 43.0 RDW Coeff of Romario 13.4 Plt Count 224 MPV 11.5 Immature Gran % (Auto) 0.400 Neut % (Auto) 68.2 Lymph % (Auto) 25.9 Real % (Auto) 4.9 Eos % (Auto) 0.2 Baso % (Auto) 0.4 Absolute Neuts (auto) 5.6 Absolute Lymphs (auto) 2.12 Nucleated RBC % 0 Sodium 140 Potassium 3.8 Chloride 108 H Carbon Dioxide 26.0 Anion Gap 6 BUN 12 Creatinine 0.88 Estim Creat Clear Calc 75.22 Est GFR (MDRD) Af Amer 95 Est GFR (MDRD) Non-Af 79 BUN/Creatinine Ratio 13.7 Glucose 110 H Calcium 9.7 Urine Color Yellow Urine Clarity Clear Urine pH 7.0 Ur Specific [place] 1.010 Urine Protein Negative Urine Glucose (UA) Normal Urine Ketones Negative Urine Occult Blood 10 H Urine Nitrite Negative Urine Bilirubin Negative Urine Urobilinogen Normal Ur Leukocyte Esterase 25 H Urine RBC 0 SEEN Urine WBC 0 SEEN Ur Squamous Epith Cells 0-5 SEEN Urine Bacteria 0 SEEN Urine Mucus 0 SEEN Urine Test Negative Radiography Diagnostic Testing: Clinical Impression(s) from Imaging Studies Abdomen/Pelvis CT 10/31/23 23:09 IMPRESSION: No acute findings. Electronically Signed: Traci Gonzalez MD at 1:37 EST , Treatment and Re-Evaluation Narrative: Studies onLab work reveals normal white count 8.2 with hemoglobin 12.8. Normal differential. BMP is unremarkable. Renal function is normal with a creatinine of 0.88. Urinalysis reveals no blood and no evidence of infection. test negative. CT scan the flank reveals no acute findings. Test results discussed with the patient. I told her I would write her prescription for 3 pain pills to last her through Thursday. She has an appointment to see her doctor on Thursday. Discharge Plan Triage Chief Complaint: Back Other Complaint: Cough ED Provider: Makayla Menchaca Dx/Rx/DC Orders Clinical Impression: Flank pain Instructions: ED Flank Pain, Uncertain Cause Prescriptions: New hydrocodone-acetaminophen 5-325 mg tablet 1 tab PO Q8H PRN PRN (Reason: Pain) 1 Days Qty: 3 0RF No Action propranolol 10 mg tablet 10 mg PO DAILY diphenhydramine HCl 50 mg Capsule 50 mg PO Q6H PRN (Reason: SEASONAL ALERGIES ) omeprazole 40 mg Capsule,Delayed Release(Dr/Ec) 40 mg PO DAILY albuterol sulfate [Ventolin HFA] 90 mcg/actuation Hfa Aerosol Inhaler 2 puff INHALATION Q6H PRN (Reason: SHORTNESS OF BREATH ) fluticasone propionate 50 mcg/actuation [place],Suspension 1 spray INTRANASAL DAILY PRN (Reason: SEASONAL ALLERGIES) escitalopram oxalate [Lexapro] 20 mg Tablet 20 mg PO DAILY Dupixent Syringe 300 mg/2 mL Syringe 300 mg SUBCUT Q14D Hold Instructions: Resume when ordering physician feels it can be restarted. Rx Instructions: EVERY 2 WEEKS quetiapine 50 mg tablet extended release 24 hr 100 mg PO QHS pregabalin 75 mg capsule 75 mg PO TID Patient Comments: PT STATES THAT THEY USUALLY ONLY TAKE THIS AT BEDTIME BECAUSE IT MAKES THEM A ZOMBIE ( OF 10-28-23) tizanidine 4 mg tablet 4 mg PO TID PRN (Reason: MUSCLE SPASMS ) Patient Comments: PT STATES THAT THEY USUALLY TAKE ALL THREE TABLETS TOGETHER ONCE DAILY AT BEDTIME BECAUSE IT MAKES THEM DROWSY ( OF 10-28-23) ondansetron 4 mg tablet,disintegrating 4 mg PO Q8H PRN (Reason: NAUSEA ) Primary Care Provider: Elizabeth Spear NP Referrals: Elizabeth Spear NP, HONING MACHINE OPERATOR TOOL-C [Primary Care Provider] - Keep [facility] appointment
[2023-11-01] MEDS: HYDROcodone Bitartrate/Apap 5/325 Tablet PO (02:08)
[2023-11-01 02:10] VITALS: BP 138/92; PULSE 87; RESP 18; O2SAT 100
== END 2023-11-01 02:11 | disposition home or self-care (01) ==
PROVIDERS: Emergency Provider Emergency Medicine; PCP Nurse Practitioner Primary Care; Visit Provider Emergency Medicine
DX: R10.9 Unspecified abdominal pain (principal); F17.290 Nicotine dependence, other tobacco product, uncomplicated; K76.0 Fatty (change of) liver, not elsewhere classified
CPT/HCPCS: 74176; 80048; 81001; 81025; 85025; 96374; 96375; 99284; J7030; A4216; J2405

== ENCOUNTER 2023-11-23 17:59 | Emergency (ER) | payer MEDICAID, SELFPAY ==
[2023-11-23 18:02] VITALS: BP 151/101; PULSE 101; RESP 18; TEMP 36.6; O2SAT 98; BMI 37.2
[2023-11-23 19:00] LABS: Absolute Lymphocyte Count 2.18 X10^3/uL (0.83-4.51); Absolute Neutrophil Count 6.3 X10^3/uL (2.0-7.7); Basophil# 0.02 X10^3/uL; Basophil% 0.2 % (0-1); Eosinophil# 0.04 X10^3/uL; Eosinophils% 0.4 % (0-5); Hematocrit 38.5 % (37-47); Hemoglobin 12.7 g/dL (12.0-15.0); Lymphocyte # 2.18 X10^3/ul (0.83-4.51); Lymphocyte % 24.2 % (19-41); Mean Corpuscular Hgb 29.1 pg (27.0-32.0); Mean Corpuscular Volume 88.1 fL (81-99); Mean Platelet Vol. 11.3 fl (6.2-12.0); Monocyte# 0.41 X10^3/uL; Monocyte% 4.6 % (0-10); NRBC Flagged by Analyzer 0 % (0-5); Neutrophil # 6.31 X10^3/uL (2.7-7.7); Neutrophil % 70.2 % (47-70); Platelet Count 218 K/mm3 (150-450); RBC Distribution Width CV 13.8 % (11.6-14.6); RBC Distribution Width SD 44.3 fl (35.1-43.9); Red Blood Count 4.37 M/mm3 (4.2-5.4)
[2023-11-23 19:16] LABS: AST(SGOT) 29 U/L (15-37); Alanine Aminotransfer ALT/SGPT 44 U/L (13-56); Albumin, Serum 4.2 g/dL (3.2-5.0); Alkaline Phosphatase 154 U/L (45-117); Anion Gap 10 (5-15); BUN 12 mg/dL (7-18); BUN/Creat Ratio 13.4 RATIO (10-20); Chloride 106 mmol/L (98-107); EST Glomerular Filtration Rate 77 mL/min (>60); Est Glom Filt Rate - Afr Amer 93 mL/min (>60); Estimated Creatinine Clearance 97.61 ml/min; Globulin 4.2 g/dL (2.2-4.2); Glucose 101 mg/dL (74-106); Potassium 3.8 mmol/L (3.5-5.1); Protein, Total 8.4 g/dL (6.4-8.2); Sodium Level 139 mmol/L (136-145)
[2023-11-23 19:22] LABS: Mucous, Urine 0 SEEN /hpf (<or=2+); Red Blood Cells-Urine 0 SEEN /hpf (0-5); White Blood Cells 0 SEEN /hpf (0-5)
--- NOTE | 2023-11-23 19:33 | ED.VIS.GI ---
HPI HPI - GI History of Present Illness Chief Complaint: Abd Pain Detail of Chief Complaint: Nausea and vomiting Informant: patient Abdominal Pain/Flank Pain Onset: Days Context: Gradual Onset Timing: Intermittent Current Severity: Mild Maximum Severity: Mild Nausea/Vomiting/Emesis GI Symptom: Positive for Nausea and Vomiting Onset: Today and Yesterday Severity: Mild Diarrhea/Melena/Hematochezia GI Symptom: Negative for Diarrhea, Melena or Hematochezia Associated Symptoms Associated Symptoms: Negative for Dysuria, Frequency, Hematuria or Urgency Narrative Narrative: 33-year-old female history of bipolar disorder. Complaining of nausea vomiting and crampy abdominal discomfort. Recent episode when she had a CAT scan 3 weeks ago which was unremarkable. She has had a prior cholecystectomy and total hysterectomy. Denies any dysuria. No fever. No abdominal trauma. Prior similar symptoms: Yes Recent Illness/Hospitalization: No PFSH PFSH Medical History Alcohol use Anxiety Back pain Bilateral renal stones Bipolar disorder Cardiology follow-up encounter Chronic interstitial cystitis Conversion disorder Depression Easy bruising Endometriosis Environmental and seasonal allergies Fatty liver Fibromyalgia Gastric reflux High cholesterol History of cervical cancer History of echocardiogram History of edema History of renal disease History of stress test Hypertension Kidney stone Left renal stone Leg cramps Marijuana use Migraine Peptic ulcer of stomach Restless legs Smoker Syncope Wears dentures Wears glasses Home Medications albuterol sulfate 90 mcg/actuation aerosol inhaler (Ventolin HFA) 2 puff inhalation Q6H PRN SHORTNESS OF BREATH 09/22/21 [History Last Taken Unknown] diphenhydramine HCl 50 mg capsule 50 mg PO Q6H PRN SEASONAL ALERGIES 09/22/21 [History Last Taken 10/24/23] dupilumab 300 mg/2 mL subcutaneous syringe (Dupixent) 300 mg subcut Q14D ECZEMA 09/22/21 [History Last Taken Unknown] escitalopram oxalate 20 mg tablet (Lexapro) 20 mg PO DAILY DEPRESSION 09/22/21 [History Last Taken 10/27/23] fluticasone propionate 50 mcg/actuation nasal spray,suspension 1 spray intranasal DAILY PRN SEASONAL ALLERGIES 09/22/21 [History Last Taken Unknown] omeprazole 40 mg capsule,delayed release 40 mg PO DAILY ACID REFLUX 09/22/21 [History Last Taken 10/27/23] propranolol 10 mg tablet 10 mg PO DAILY BLOOD PRESSURE 12/26/21 [History Last Taken 10/27/23] quetiapine 50 mg tablet,extended release 24 hr 100 mg PO QHS MOOD 01/30/23 [History Last Taken 10/27/23] pregabalin 75 mg capsule 75 mg PO TID PAIN 09/15/23 [History Last Taken 10/27/23] ondansetron 4 mg disintegrating tablet 4 mg PO Q8H PRN NAUSEA 10/28/23 [History Last Taken Unknown] tizanidine 4 mg tablet 4 mg PO TID PRN MUSCLE SPASMS 10/28/23 [History Last Taken 10/27/23] hydrocodone-acetaminophen 5-325mg 5mg-325mg 1 tab PO Q8H PRN PRN Pain 1 day #3 TABLETS 11/01/23 [Rx Last Taken Unknown] ondansetron 4 mg disintegrating tablet 4 mg PO Q6H PRN nausea and vomiting #7 tabs 11/23/23 [Rx Last Taken Unknown] Allergy/AdvReac Type Severity Reaction Status Date / Time amitriptyline Allergy MUSCLE Verified 10/24/23 20:51 SPASMS Bleach (Sodium Hypochlorite) Allergy Hives Verified 10/24/23 20:51 codeine Allergy Hives Verified 10/24/23 20:51 ketorolac [From Toradol] Allergy Itching Verified 10/24/23 20:51 nitrofurantoin Allergy Anaphylaxis Verified 10/24/23 20:51 [From Macrodantin] doxycycline AdvReac Vomiting Verified 10/24/23 20:51 Family History Mother Hypertension Migraine Grandmother CVA (cerebral vascular accident) Grandfather Diabetes Father Myocardial infarction Surgical History History of cystoscopy History of hysterectomy Hx of cholecystectomy S/P laparoscopic surgery Social History household members: significant other Smoking Status: Current every day smoker tobacco type: e-cigarettes alcohol intake: current details: occasionally substance use type: does not use caffeine: Yes what type of physical activity do you participate in: walking frequency: 1-2 times per week seatbelt use: always do you feel safe at home: Yes additional social history: Single ROS ROS ED ROS Narrative Nausea and vomiting. Abdominal cramping. Review of Systems ROS Unobtainable: Denies due to encephalopathy Constitutional Constitutional ED: Denies chills or fever(s) ENT ENT ED: Denies ear pain Cardiovascular Cardiovascular: Denies chest pain Respiratory/Chest Respiratory/Chest: Denies cough Gastrointestinal Gastrointestinal: Reports abdominal pain, nausea and vomiting; Denies constipation, diarrhea or melena Genitourinary Genitourinary ED: Denies dysuria or hematuria Musculoskeletal Musculoskeletal: Denies arthralgias Integumentary Denies abscess Neurologic Neurologic: Denies headache(s) Psychiatric Psychiatric: Denies anxiety Endocrine Endocrinology: Denies polydipsia Hematologic/Lymphatic Hematologic/Lymphatic: Denies easy bleeding Allergic/Immunologic Allergic/Immunologic ED: Denies mouth swelling, tongue swelling or urticaria EXAM Physical Exam Narrative Exam Narrative: Well-appearing 33-year-old female. Vital signs stable afebrile. HEENT exam unremarkable. Neck nontender no lymphadenopathy. Moist weeks membranes. Lungs clear to auscultation bilateral. Heart regular rhythm rate about 95 no murmur. Chest wall and ribs nontender. Abdomen soft nondistended normal bowel sounds no peritoneal signs. No signs of obstruction. Minimal epigastric tenderness. No rebound guarding rigidity. No obstruction. No Aj sign McBurney's point tenderness. No hernia or mass. Moving all 4 extremities. Nontender no edema. Normal gaming commissioner strength. Normal dorsi plantarflexion. Back nontender. Neurologically she is awake and alert no focal motor deficits. Const Vital Signs: 11/23/23 18:02 11/23/23 19:37 Temperature 97.8 F Temperature Source Temporal Pulse Rate 101 H 95 Respiratory Rate 18 18 Blood Pressure 151/101 H Blood Pressure Mean 117 Pulse Ox 98 97 Oxygen Delivery Method Room Air Room Air Positive well nourished and well developed; Negative for cachectic, contractures or unkempt General Appearance ED: well developed and NAD; Negative for unkempt, cachectic, contractures or pallor Nutritional Appearance: Negative for cachectic HEENT Reports moist mucous membranes; Denies dry mucous membranes normocephalic and atraumatic; Negative for trauma or tenderness Mouth ED: No dry mucous membranes Mouth: No dry mucous membranes Eyes PERRL and EOMs intact bilaterally General Eye ED: Negative for pale conjunctiva, scleral icterus or other Neck no lymphadenopathy, supple and no JVD General: Negative for tenderness Carotids: Negative for other Lymph Lymphatic: Negative for other Resp normal respiratory effort and clear to auscultation bilaterally Effort and Inspection: Negative for respiratory distress Auscultation: Negative for rales, rhonchi or wheezes Cardio regular rate, regular rhythm, S1 normal heart sound, S2 normal heart sound and no murmurs Rate: Negative for bradycardia or tachycardic Rhythm: Negative for abnormal rhythm GI non-distended and no masses; Negative for non-tender GI Narrative: Minimal epigastric tenderness. No rebound guarding rigidity. No obstruction. Inspection: Negative for abdominal distention Auscultation: normoactive bowel sounds Palpation: soft and tender; Negative for guarding, rigid or rebound tenderness present Back/Spine no CVA tenderness General Back: Negative for CVA tenderness Cervical Spine: Negative for cervical spine tenderness Thoracic Spine / Upper Back: Negative for thoracic spinal tenderness Lumbar Spine / Lower Back: Negative for lumbar spinal tenderness Coccyx: Negative for other Extremity full ROM General Extremety ED: Negative for edema or tenderness General Extremity: Negative for edema Neuro CN's II-XII intact bilaterally and moves all extremities Sensorium / Orientation: alert, oriented to person, oriented to place and oriented to time; Negative for orientation impaired, confused, lethargic or stuporous Motor Exam: strength 5/5 throughout; Negative for general weakness Psych mental status grossly normal and thought process normal Appearance: Negative for unkempt Attitude: No agitated Mood & Affect: Negative for depressed, anxious or tearful Skin no wounds General Skin Exam: Negative for jaundice or pallor Lesions: no lesions Rashes: no rashes Trauma: Negative for abrasion Nails: Negative for discolored MDM MDM MDM Narrative Medical decision making narrative: 33-year-old female no acute distress vital signs stable. Planing of abdominal discomfort with nausea and vomiting. Abdominal exam is benign. Screening labs being obtained. She had a recent CAT scan about 3 weeks ago that was unremarkable. I do not feel she needs additional imaging today unless the labs are significantly abnormal. Repeat exam at 915. Abdomen has been9:15 PM patient doing well 9. I do not think she needs any imaging. She will be discharged home. She was given Zofran for nausea. She repeatedly was requesting narcotic pain medications which I explained to her I did not think was necessary. She reportedly has a Toradol allergy. Patient be discharged home with outpatient follow-up. History & Record Review Discussion w/independent historian: Patient Additional record(s) reviewed:: Prior outpatient record, Prior ED visit and Prior labs Lab Data Attestation: I reviewed the patient's lab results. Lab results narrative: CBC normal. White count of 9. H&H 12 and 38. Electrolytes unremarkable. Gap of 10. Normal BUN 12 creatinine 0.9. Liver enzymes are unremarkable. Alk phos of 154. Urinalysis is normal. Labs: Laboratory Results - last 24 hr 11/23/23 11/23/23 18:45 19:13 WBC 9.0 RBC 4.37 Hgb 12.7 Hct 38.5 MCV 88.1 MCH 29.1 MCHC 33.0 RDW Std Deviation 44.3 H RDW Coeff of Romario 13.8 Plt Count 218 MPV 11.3 Immature Gran % (Auto) 0.400 Neut % (Auto) 70.2 H Lymph % (Auto) 24.2 Motley % (Auto) 4.6 Eos % (Auto) 0.4 Baso % (Auto) 0.2 Absolute Neuts (auto) 6.3 Absolute Lymphs (auto) 2.18 Nucleated RBC % 0 Sodium 139 Potassium 3.8 Chloride 106 Carbon Dioxide 23.0 Anion Gap 10 BUN 12 Creatinine 0.90 Estim Creat Clear Calc 97.61 Est GFR (MDRD) Af Amer 93 Est GFR (MDRD) Non-Af 77 BUN/Creatinine Ratio 13.4 Glucose 101 Calcium 10.0 Total Bilirubin 0.40 AST 29 ALT 44 Alkaline Phosphatase 154 H Total Protein 8.4 H Albumin 4.2 Globulin 4.2 Albumin/Globulin Ratio 1.0 Urine Color Yellow Urine Clarity Clear Urine pH 7.0 Ur Specific [place] 1.010 Urine Protein Negative Urine Glucose (UA) Normal Urine Ketones Negative Urine Occult Blood 10 H Urine Nitrite Negative Urine Bilirubin Negative Urine Urobilinogen Normal Ur Leukocyte Esterase Negative Urine RBC 0 SEEN Urine WBC 0 SEEN Ur Squamous Epith Cells 0-5 SEEN Urine Bacteria RARE Urine Mucus 0 SEEN Discharge Plan Triage Chief Complaint: Abd Pain ED Provider: Satya Page Dx/Rx/DC Orders Clinical Impression: Abdominal pain Instructions: Abdominal Pain Prescriptions: New ondansetron 4 mg tablet,disintegrating 4 mg PO Q6H PRN (Reason: nausea and vomiting) Qty: 7 0RF No Action propranolol 10 mg tablet 10 mg PO DAILY diphenhydramine HCl 50 mg Capsule 50 mg PO Q6H PRN (Reason: SEASONAL ALERGIES ) omeprazole 40 mg Capsule,Delayed Release(Dr/Ec) 40 mg PO DAILY albuterol sulfate [Ventolin HFA] 90 mcg/actuation Hfa Aerosol Inhaler 2 puff INHALATION Q6H PRN (Reason: SHORTNESS OF BREATH ) fluticasone propionate 50 mcg/actuation [place],Suspension 1 spray INTRANASAL DAILY PRN (Reason: SEASONAL ALLERGIES) escitalopram oxalate [Lexapro] 20 mg Tablet 20 mg PO DAILY Dupixent Syringe 300 mg/2 mL Syringe 300 mg SUBCUT Q14D Hold Instructions: Resume when ordering physician feels it can be restarted. Rx Instructions: EVERY 2 WEEKS quetiapine 50 mg tablet extended release 24 hr 100 mg PO QHS pregabalin 75 mg capsule 75 mg PO TID Patient Comments: PT STATES THAT THEY USUALLY ONLY TAKE THIS AT BEDTIME BECAUSE IT MAKES THEM A ZOMBIE ( OF 10-28-23) tizanidine 4 mg tablet 4 mg PO TID PRN (Reason: MUSCLE SPASMS ) Patient Comments: PT STATES THAT THEY USUALLY TAKE ALL THREE TABLETS TOGETHER ONCE DAILY AT BEDTIME BECAUSE IT MAKES THEM DROWSY ( OF 10-28-23) ondansetron 4 mg tablet,disintegrating 4 mg PO Q8H PRN (Reason: NAUSEA ) hydrocodone-acetaminophen 5-325 mg tablet 1 tab PO Q8H PRN PRN (Reason: Pain) 1 Days Qty: 3 0RF Primary Care Provider: Dean Varghese Referrals: Elizabeth Spear [employer], [employer] [Non-Staff] - 3-5 Days if not improving Activity Restrictions/Additional Instructions: Your labs were unremarkable. Your urine showed no infection. Tylenol for pain. Zofran for nausea. Follow-up with your primary care provider if not improving. Return if feeling worse. Disposition Disposition: Home, Self Care
[2023-11-23] MEDS: Ondansetron 4 MG/2 ML Vial IV (19:36)
[2023-11-23 19:37] VITALS: PULSE 95; RESP 18; O2SAT 97
[2023-11-23 19:52] LABS: Color, Urine Yellow (Yellow); Glucose, Dipstick Normal (Normal); Ketone-Dipstick Negative (Negative); Leukocyte Esterase-Dipstick Negative /ul (Negative); Nitrite-Dipstick Negative (Negative); Occult Blood-Urine 10 /ul (Negative); Protein-Dipstick Negative (Negative); Urine Bilirubin Dipstick Negative (Negative); Urine Clarity Clear (Clear); Urine Urobilinogen Normal (Normal)
[2023-11-23 20:06] LABS: Bacteria RARE /hpf (None Seen); Squamous Epithelial Cells - UA 0-5 SEEN /hpf (5-10)
== END 2023-11-23 21:40 | disposition home or self-care (01) ==
PROVIDERS: Emergency Provider Emergency Medicine; Visit Provider Emergency Medicine
DX: R10.9 Unspecified abdominal pain (principal); F17.290 Nicotine dependence, other tobacco product, uncomplicated
CPT/HCPCS: 80053; 81001; 85025; 96374; 99283; A4216; J2405

== ENCOUNTER 2023-11-26 10:28 | Emergency (ER) | payer MEDICAID, SELFPAY ==
[2023-11-26 10:30] VITALS: BP 152/94; PULSE 67; RESP 16; TEMP 36.4; O2SAT 99; BMI 38.6
[2023-11-26] MEDS: 0.9% Normal Saline (1000mL) 1,000 ML 999 ML IV (11:59)
[2023-11-26] MEDS: DiphenhydrAMINE 50 MG/ML Syringe 25 MG IV (12:00)
[2023-11-26] MEDS: Metoclopramide 10 MG/2 ML Vial IV (12:00)
--- NOTE | 2023-11-26 12:14 | EX.ED.VIS.HA ---
HPI History of Present Illness Chief Complaint: Headache Narrative Narrative: 33-year-old female presenting with headache. She states it is a migraine headache. She states has had these in the past. She does have light and sound sensitivity. She also has intermittent blurred vision as well as nausea. She states she is needs a neurologist for her headaches. She has had imaging of her brain in the past. She states she takes Nurtec from her neurologist which normally helps with headache but has not. Denies fever, chills. Denies any trauma. She has mild nausea without vomiting. PFSH PFS Medical History Alcohol use Anxiety Back pain Bilateral renal stones Bipolar disorder Cardiology follow-up encounter Chronic interstitial cystitis Conversion disorder Depression Easy bruising Endometriosis Environmental and seasonal allergies Fatty liver Fibromyalgia Gastric reflux High cholesterol History of cervical cancer History of echocardiogram History of edema History of renal disease History of stress test Hypertension Kidney stone Left renal stone Leg cramps Marijuana use Migraine Peptic ulcer of stomach Restless legs Smoker Syncope Wears dentures Wears glasses Home Medications albuterol sulfate 90 mcg/actuation aerosol inhaler (Ventolin HFA) 2 puff inhalation Q6H PRN SHORTNESS OF BREATH 09/22/21 [History Last Taken Unknown] diphenhydramine HCl 50 mg capsule 50 mg PO Q6H PRN SEASONAL ALERGIES 09/22/21 [History Last Taken 10/24/23] dupilumab 300 mg/2 mL subcutaneous syringe (Dupixent) 300 mg subcut Q14D ECZEMA 09/22/21 [History Last Taken Unknown] escitalopram oxalate 20 mg tablet (Lexapro) 20 mg PO DAILY DEPRESSION 09/22/21 [History Last Taken 10/27/23] fluticasone propionate 50 mcg/actuation nasal spray,suspension 1 spray intranasal DAILY PRN SEASONAL ALLERGIES 09/22/21 [History Last Taken Unknown] omeprazole 40 mg capsule,delayed release 40 mg PO DAILY ACID REFLUX 09/22/21 [History Last Taken 10/27/23] propranolol 10 mg tablet 10 mg PO DAILY BLOOD PRESSURE 12/26/21 [History Last Taken 10/27/23] quetiapine 50 mg tablet,extended release 24 hr 100 mg PO QHS MOOD 01/30/23 [History Last Taken 10/27/23] pregabalin 75 mg capsule 75 mg PO TID PAIN 09/15/23 [History Last Taken 10/27/23] tizanidine 4 mg tablet 4 mg PO TID PRN MUSCLE SPASMS 10/28/23 [History Last Taken 10/27/23] hydrocodone-acetaminophen 5-325mg 5mg-325mg 1 tab PO Q8H PRN PRN Pain 1 day #3 TABLETS 11/01/23 [Rx Last Taken Unknown] ondansetron 4 mg disintegrating tablet 4 mg PO Q6H PRN nausea and vomiting #7 tabs 11/23/23 [Rx Last Taken Unknown] diphenhydramine HCl 25 mg capsule (Benadryl) 25 mg PO Q8H PRN headache #5 caps 11/26/23 [Rx Last Taken Unknown] metoclopramide HCl 10 mg tablet (Reglan) 10 mg PO Q8 #5 tabs 11/26/23 [Rx Last Taken Unknown] Allergy/AdvReac Type Severity Reaction Status Date / Time amitriptyline Allergy MUSCLE Verified 11/26/23 10:32 SPASMS Bleach (Sodium Hypochlorite) Allergy Hives Verified 11/26/23 10:32 codeine Allergy Hives Verified 11/26/23 10:32 ketorolac [From Toradol] Allergy Itching Verified 11/26/23 10:32 nitrofurantoin Allergy Anaphylaxis Verified 11/26/23 10:32 [From Macrodantin] doxycycline AdvReac Vomiting Verified 11/26/23 10:32 Family History Mother Hypertension Migraine Grandmother CVA (cerebral vascular accident) Grandfather Diabetes Father Myocardial infarction Surgical History History of cystoscopy History of hysterectomy Hx of cholecystectomy S/P laparoscopic surgery Social History household members: significant other Smoking Status: Current every day smoker tobacco type: e-cigarettes alcohol intake: current details: occasionally substance use type: does not use caffeine: Yes what type of physical activity do you participate in: walking frequency: 1-2 times per week seatbelt use: always do you feel safe at home: Yes additional social history: Single ROS ROS ED Constitutional Constitutional ED: Denies chills, fever(s) or sweats Eyes Eyes: Reports blurry vision; Denies change in vision ENT ENT ED: Denies ear pain or sore throat Cardiovascular Cardiovascular: Denies chest pain, palpitations or racing heartbeat Respiratory/Chest Respiratory/Chest: Denies cough, dyspnea or sputum Gastrointestinal Gastrointestinal: Reports nausea; Denies abdominal pain, constipation, diarrhea or vomiting Genitourinary Genitourinary ED: Denies dysuria, hematuria or urinary frequency Musculoskeletal Musculoskeletal: Denies arthralgias, myalgias or neck pain Integumentary Denies abscess, Abrasions or rash Neurologic Neurologic: Reports headache(s); Denies paresthesias or weakness Psychiatric Psychiatric: Denies anxiety, depression, suicidal ideation or suicidal thoughts Endocrine Endocrinology: Denies polydipsia or polyuria EXAM Physical Exam Const Vital Signs: 11/26/23 10:30 Temperature 97.6 F L Temperature Source Temporal Pulse Rate 67 Respiratory Rate 16 Blood Pressure 152/94 H Blood Pressure Mean 113 Pulse Ox 99 Oxygen Delivery Method Room Air Positive well nourished General Appearance ED: NAD; Negative for pallor HEENT Reports normocephalic and moist mucous membranes atraumatic and trauma Eyes PERRL and EOMs intact bilaterally Resp normal respiratory effort Cardio regular rate and regular rhythm Extremity normal to inspection Neuro oriented x3, CN's II-XII intact bilaterally and no sensory deficits noted Neuro Narrative: No focal neurologic deficits or lateralizing signs or symptoms. Sensorium / Orientation: awake and alert Psych mental status grossly normal Skin General Skin Exam: Negative for jaundice or pallor MDM MDM MDM Narrative Medical decision making narrative: 33-year-old female with headache. On examination she has no focal neurologic deficits or lateralizing signs or symptoms. Patient states that Reglan and Benadryl usually helps but she usually gets Dilaudid with her migraine medication. I counseled her wound start with Reglan and Benadryl. He will hold Toradol she states she has an allergy to it. She states she cannot ibuprofen or Aleve due to stomach ulcer history. I counseled her that Dilaudid would not be indicated for migraine headache and might actually cause rebound headache. Will give her some IV fluids. I do not believe she needs a head CT as she had imaging in the past. She states her migraine is typical of her migraines. There is no red flag signs or symptoms. On reevaluation at 12:50 PM the patient states she feels improved and wants to go home. Patient will be given a short supply of Reglan for home as needed. Return precaution discussed. Impression: 1. Headache Discharge Plan Triage Chief Complaint: Headache ED Provider: Mark Cao Dx/Rx/DC Orders Instructions: ED Rebound Headache Prescriptions: New metoclopramide HCl [Reglan] 10 mg tablet 10 mg PO Q8 Qty: 5 0RF diphenhydramine HCl [Benadryl] 25 mg capsule 25 mg PO Q8H PRN (Reason: headache) Qty: 5 0RF No Action propranolol 10 mg tablet 10 mg PO DAILY diphenhydramine HCl 50 mg Capsule 50 mg PO Q6H PRN (Reason: SEASONAL ALERGIES ) omeprazole 40 mg Capsule,Delayed Release(Dr/Ec) 40 mg PO DAILY albuterol sulfate [Ventolin HFA] 90 mcg/actuation Hfa Aerosol Inhaler 2 puff INHALATION Q6H PRN (Reason: SHORTNESS OF BREATH ) fluticasone propionate 50 mcg/actuation [place]ia,Suspension 1 spray INTRANASAL DAILY PRN (Reason: SEASONAL ALLERGIES) escitalopram oxalate [Lexapro] 20 mg Tablet 20 mg PO DAILY Dupixent Syringe 300 mg/2 mL Syringe 300 mg SUBCUT Q14D Hold Instructions: Resume when ordering physician feels it can be restarted. Rx Instructions: EVERY 2 WEEKS quetiapine 50 mg tablet extended release 24 hr 100 mg PO QHS pregabalin 75 mg capsule 75 mg PO TID Patient Comments: PT STATES THAT THEY USUALLY ONLY TAKE THIS AT BEDTIME BECAUSE IT MAKES THEM A ZOMBIE ( OF 10-28-23) tizanidine 4 mg tablet 4 mg PO TID PRN (Reason: MUSCLE SPASMS ) Patient Comments: PT STATES THAT THEY USUALLY TAKE ALL THREE TABLETS TOGETHER ONCE DAILY AT BEDTIME BECAUSE IT MAKES THEM DROWSY ( OF 10-28-23) hydrocodone-acetaminophen 5-325 mg tablet 1 tab PO Q8H PRN PRN (Reason: Pain) 1 Days Qty: 3 0RF ondansetron 4 mg tablet,disintegrating 4 mg PO Q6H PRN (Reason: nausea and vomiting) Qty: 7 0RF Primary Care Provider: Dean Varghese Referrals: Dean Varghese DO [Primary Care Provider] - Disposition Disposition: Home, Self Care
== END 2023-11-26 12:57 | disposition home or self-care (01) ==
PROVIDERS: Emergency Provider Student in an Organized Health Care Education/Training Program; Visit Provider Student in an Organized Health Care Education/Training Program
DX: R51.9 Headache, unspecified (principal); F17.290 Nicotine dependence, other tobacco product, uncomplicated; I10 Essential (primary) hypertension; F32.A Depression, unspecified; F41.9 Anxiety disorder, unspecified; Z79.899 Other long term (current) drug therapy; Z79.51 Long term (current) use of inhaled steroids
CPT/HCPCS: 96374; 96375; 99283; J7030; A4216

== ENCOUNTER 2023-12-01 16:44 | Emergency (ER) | payer MEDICAID, SELFPAY ==
[2023-12-01 16:45] VITALS: BP 166/99; PULSE 83; RESP 20; TEMP 36.9; O2SAT 100; BMI 38.2
[2023-12-01 17:06] LABS: Bacteria 0 SEEN /hpf (None Seen); Mucous, Urine 0 SEEN /hpf (<or=2+); White Blood Cells 0 SEEN /hpf (0-5)
[2023-12-01 17:13] LABS: Color, Urine Yellow (Yellow); Glucose, Dipstick Normal (Normal); Ketone-Dipstick Negative (Negative); Leukocyte Esterase-Dipstick Negative /ul (Negative); Nitrite-Dipstick Negative (Negative); Occult Blood-Urine 10 /ul (Negative); Protein-Dipstick Negative (Negative); Urine Bilirubin Dipstick Negative (Negative); Urine Clarity Sl. Cloudy (Clear); Urine Urobilinogen Normal (Normal)
[2023-12-01 17:26] LABS: Red Blood Cells-Urine 0-5 SEEN /hpf (0-5); Squamous Epithelial Cells - UA 0-5 SEEN /hpf (5-10)
--- NOTE | 2023-12-01 19:13 | CT_ITS ---
STUDY: CT ABDOMEN AND PELVIS WITHOUT CONTRAST REASON FOR EXAM: Female, 33 years old. Kidney Stone RADIATION DOSAGE (If Supplied By Facility): CTDIvol = ( 20.32 ) mGy, DLP = ( 1061.11 ) mGycm TECHNIQUE: Transaxial images were obtained from the dome of the diaphragm to the symphysis pubis without oral contrast, and without intravenous contrast. Sagittal and coronal images were reconstructed. Individualized dose optimization techniques were used for this CT. COMPARISON: None. FINDINGS: Minimal lingular atelectasis, otherwise the visualized lung bases are unremarkable. The visualized portions of the heart are within normal limits. There is decreased attenuation of the liver consistent with steatosis. Nonvisualization of gallbladder which may indicate sequela of previous cholecystectomy. Normal spleen. Normal pancreas. Normal bilateral adrenal glands. Normal right kidney. Normal left kidney. Normal visualized stomach. Normal small intestine. Moderate fecal debris within the colon with borderline mild thickening of the wall through the sigmoid, cannot exclude mild distal colitis. The appendix is visualized and appears normal. Normal abdominal aorta. Normal inferior vena cava. Normal retroperitoneum. Normal urinary bladder. There is absence of the uterus consistent with a prior hysterectomy. Normal abdominal wall. Normal osseous structures. CT/Abdomen/Pelvis without Cont IMPRESSION: Cannot exclude distal mild colitis versus fullness of the colonic wall from incomplete distention. No acute appendicitis or bowel obstruction. Diffuse fatty liver with status post cholecystectomy. Otherwise unremarkable abdominal viscera. Electronically Signed: Felicia Smith MD at 20:55 EST ,
--- NOTE | 2023-12-01 19:15 | ED.VIS.FEGU ---
HPI HPI - Female History of Present Illness Chief Complaint: Flank Pain Narrative Narrative: 33-year-old female with history of kidney stones, UTI, pyelonephritis, endometriosis presenting with right-sided abdominal pain/flank pain. Onset was yesterday. She also has dysuria and urinary frequency. Denies fevers but thinks he might of had some chills. Patient took 2 doses of Tylenol today without relief. Patient states he sees Dr. Lagunas for her urological care. She states she had nausea and vomiting today but was able to hold on fluids. She still making plenty of urine. [facility] Medical History Alcohol use Anxiety Back pain Bilateral renal stones Bipolar disorder Cardiology follow-up encounter Chronic interstitial cystitis Conversion disorder Depression Easy bruising Endometriosis Environmental and seasonal allergies Fatty liver Fibromyalgia Gastric reflux High cholesterol History of cervical cancer History of echocardiogram History of edema History of renal disease History of stress test Hypertension Kidney stone Left renal stone Leg cramps Marijuana use Migraine Peptic ulcer of stomach Restless legs Smoker Syncope Wears dentures Wears glasses Home Medications albuterol sulfate 90 mcg/actuation aerosol inhaler (Ventolin HFA) 2 puff inhalation Q6H PRN SHORTNESS OF BREATH 09/22/21 [History Last Taken Unknown] diphenhydramine HCl 50 mg capsule 50 mg PO Q6H PRN SEASONAL ALERGIES 09/22/21 [History Last Taken 10/24/23] escitalopram oxalate 20 mg tablet (Lexapro) 20 mg PO DAILY DEPRESSION 09/22/21 [History Last Taken 10/27/23] fluticasone propionate 50 mcg/actuation nasal spray,suspension 1 spray intranasal DAILY PRN SEASONAL ALLERGIES 09/22/21 [History Last Taken Unknown] omeprazole 40 mg capsule,delayed release 40 mg PO BID ACID REFLUX 09/22/21 [History Last Taken 10/27/23] quetiapine 50 mg tablet,extended release 24 hr 100 mg PO QHS MOOD 01/30/23 [History Last Taken 10/27/23] pregabalin 75 mg capsule 75 mg PO QHS PAIN 09/15/23 [History Last Taken 10/27/23] tizanidine 4 mg tablet 4 mg PO TID PRN MUSCLE SPASMS 10/28/23 [History Last Taken 10/27/23] ondansetron 4 mg disintegrating tablet 4 mg PO Q6H PRN nausea and vomiting #7 tabs 11/23/23 [Rx Last Taken Unknown] diphenhydramine HCl 25 mg capsule (Benadryl) 25 mg PO Q8H PRN headache #5 caps 11/26/23 [Rx Last Taken Unknown] hydrocortisone 2.5 % topical cream 1 applic topical BID 12/01/23 [History Last Taken Unknown] ondansetron 4 mg disintegrating tablet 4 mg PO Q8H PRN PRN Nausea #14 tabs 12/01/23 [Rx Last Taken Unknown] oxybutynin chloride 10 mg tablet,extended release 24 hr 10 mg PO DAILY 12/01/23 [History Last Taken Unknown] Allergy/AdvReac Type Severity Reaction Status Date / Time amitriptyline Allergy MUSCLE Verified 12/01/23 16:47 SPASMS Bleach (Sodium Hypochlorite) Allergy Hives Verified 12/01/23 16:47 codeine Allergy Hives Verified 12/01/23 16:47 ketorolac [From Toradol] Allergy Itching Verified 12/01/23 16:47 nitrofurantoin Allergy Anaphylaxis Verified 12/01/23 16:47 [From Macrodantin] doxycycline AdvReac Vomiting Verified 12/01/23 16:47 Family History Mother Hypertension Migraine Grandmother CVA (cerebral vascular accident) Grandfather Diabetes Father Myocardial infarction Surgical History History of cystoscopy History of hysterectomy Hx of cholecystectomy S/P laparoscopic surgery Social History household members: significant other Smoking Status: Current every day smoker tobacco type: e-cigarettes alcohol intake: current details: occasionally substance use type: does not use caffeine: Yes what type of physical activity do you participate in: walking frequency: 1-2 times per week seatbelt use: always do you feel safe at home: Yes additional social history: Single ROS ROS ED Constitutional Constitutional ED: Denies chills, fever(s) or sweats Eyes Eyes: Denies blurry vision or change in vision ENT ENT ED: Denies ear pain or sore throat Cardiovascular Cardiovascular: Denies chest pain, palpitations or racing heartbeat Respiratory/Chest Respiratory/Chest: Denies cough, dyspnea or sputum Gastrointestinal Gastrointestinal: Reports abdominal pain; Denies constipation, diarrhea, nausea or vomiting Genitourinary Genitourinary ED: Reports dysuria and urinary frequency; Denies hematuria Musculoskeletal Musculoskeletal: Reports other Details: Right flank pain ; Denies arthralgias or myalgias Integumentary Denies abscess, Abrasions or rash Neurologic Neurologic: Denies headache(s), paresthesias or weakness Psychiatric Psychiatric: Denies anxiety, depression, suicidal ideation or suicidal thoughts Endocrine Endocrinology: Denies polydipsia or polyuria EXAM Physical Exam Const Vital Signs: 12/01/23 16:45 12/01/23 20:36 Temperature 98.4 F Temperature Source Oral Pulse Rate 83 79 Respiratory Rate 20 H 16 Blood Pressure 166/99 H 144/80 H Blood Pressure Mean 121 101 Pulse Ox 100 99 Oxygen Delivery Method Room Air Room Air Positive well nourished General Appearance ED: NAD; Negative for pallor HEENT Reports moist mucous membranes Eyes PERRL Resp normal respiratory effort Cardio regular rate and regular rhythm GI normal to inspection, nondistended, normoactive bowel sounds Back/Spine General Back: CVA tenderness right Neuro oriented x3 and CN's II-XII intact bilaterally Sensorium / Orientation: alert Motor Exam: strength 5/5 throughout Psych mental status grossly normal Skin no rashes or lesions noted General Skin Exam: Negative for jaundice or pallor MDM MDM MDM Narrative Medical decision making narrative: Patient presenting with right flank pain. Has history of UTI, pyelonephritis, kidney stones which is on the differential. Patient also has history of endometriosis. CBC will be obtained to assess white blood cell count, hemoglobin complaints. BMP to assess renal function, lipids, glucose. Urinalysis to assess for UTI. Patient status post hysterectomy and does not require hCG. Patient states she is allergic to Toradol so she was given morphine, Zofran, IV fluids. Urinalysis does not indicate infection. She has 10 occult blood with 0-5 RBCs. CBC shows no leukocytosis. Hemoglobin stable at 12.4. Platelets are normal at 226. Patient was medicated morphine and Zofran. CT of the abdomen pelvis without contrast was obtained to rule out kidney stone and this is negative for stone or pyelonephritis. The radiologist does state that he cannot rule out colitis however the patient does not have any GI symptoms except for nausea/vomiting. Patient was given prescription for Zofran for home. She can use a regular adjunct of [id number] medications for pain. Turn precautions discussed. Impression: 1. Right flank pain 2. Nausea/vomiting Lab Data Attestation: I reviewed the patient's lab results. Labs: Laboratory Results - last 24 hr 12/01/23 12/01/23 17:00 19:35 WBC 8.5 RBC 4.26 Hgb 12.4 Hct 37.6 MCV 88.3 MCH 29.1 MCHC 33.0 RDW Std Deviation 45.4 H RDW Coeff of Romario 14.2 Plt Count 226 MPV 11.5 Immature Gran % (Auto) 0.400 Neut % (Auto) 67.5 Lymph % (Auto) 27.1 [place] % (Auto) 4.2 Eos % (Auto) 0.6 Baso % (Auto) 0.2 Absolute Neuts (auto) 5.8 Absolute Lymphs (auto) 2.31 Nucleated RBC % 0 Sodium 139 Potassium 4.0 Chloride 109 H Carbon Dioxide 25.0 Anion Gap 5 BUN 12 Creatinine 0.85 Estim Creat Clear Calc 104.98 Est GFR (MDRD) Af Amer 98 Est GFR (MDRD) Non-Af 81 BUN/Creatinine Ratio 14.1 Glucose 114 H Calcium 9.8 Urine Color Yellow Urine Clarity Sl. Cloudy Urine pH 7.0 Ur Specific [place] 1.010 Urine Protein Negative Urine Glucose (UA) Normal Urine Ketones Negative Urine Occult Blood 10 H Urine Nitrite Negative Urine Bilirubin Negative Urine Urobilinogen Normal Ur Leukocyte Esterase Negative Urine RBC 0-5 SEEN Urine WBC 0 SEEN Ur Squamous Epith Cells 0-5 SEEN Urine Bacteria 0 SEEN Urine Mucus 0 SEEN Radiography Diagnostic Testing: Clinical Impression(s) from Imaging Studies Abdomen/Pelvis CT 12/01/23 19:13 IMPRESSION: Cannot exclude distal mild colitis versus fullness of the colonic wall from incomplete distention. No acute appendicitis or bowel obstruction. Diffuse fatty liver with status post cholecystectomy. Otherwise unremarkable abdominal viscera. Electronically Signed: Felicia Smith MD at 20:55 EST , Discharge Plan Triage Chief Complaint: Flank Pain ED Provider: Mark Cao Dx/Rx/DC Orders Instructions: ED Flank Pain, Uncertain Cause Prescriptions: New ondansetron 4 mg tablet,disintegrating 4 mg PO Q8H PRN PRN (Reason: Nausea) Qty: 14 0RF No Action diphenhydramine HCl 50 mg Capsule 50 mg PO Q6H PRN (Reason: SEASONAL ALERGIES ) omeprazole 40 mg Capsule,Delayed Release(Dr/Ec) 40 mg PO BID albuterol sulfate [Ventolin HFA] 90 mcg/actuation Hfa Aerosol Inhaler 2 puff INHALATION Q6H PRN (Reason: SHORTNESS OF BREATH ) fluticasone propionate 50 mcg/actuation [place],Suspension 1 spray INTRANASAL DAILY PRN (Reason: SEASONAL ALLERGIES) escitalopram oxalate [Lexapro] 20 mg Tablet 20 mg PO DAILY quetiapine 50 mg tablet extended release 24 hr 100 mg PO QHS hydrocortisone 2.5 % cream 1 applic TOPICAL BID Patient Comments: Apply twice a day to affected areas of the body for two weeks on and taking one week off before repeating cycle as needed for flares oxybutynin chloride 10 mg tablet extended release 24hr 10 mg PO DAILY Patient Comments: TAKE 1 TABLET BY MOUTH EVERY MORNING pregabalin 75 mg capsule 75 mg PO QHS Patient Comments: PT STATES THAT THEY USUALLY ONLY TAKE THIS AT BEDTIME BECAUSE IT MAKES THEM A ZOMBIE ( OF 10-28-23) tizanidine 4 mg tablet 4 mg PO TID PRN (Reason: MUSCLE SPASMS ) Patient Comments: PT STATES THAT THEY USUALLY TAKE ALL THREE TABLETS TOGETHER ONCE DAILY AT BEDTIME BECAUSE IT MAKES THEM DROWSY ( OF 10-28-23) ondansetron 4 mg tablet,disintegrating 4 mg PO Q6H PRN (Reason: nausea and vomiting) Qty: 7 0RF diphenhydramine HCl [Benadryl] 25 mg capsule 25 mg PO Q8H PRN (Reason: headache) Qty: 5 0RF Primary Care Provider: Dean Varghese Referrals: Dean Varghese DO [Primary Care Provider] - Disposition Disposition: Home, Self Care
[2023-12-01 19:44] LABS: Absolute Lymphocyte Count 2.31 X10^3/uL (0.83-4.51); Absolute Neutrophil Count 5.8 X10^3/uL (2.0-7.7); Basophil# 0.02 X10^3/uL; Basophil% 0.2 % (0-1); Eosinophil# 0.05 X10^3/uL; Eosinophils% 0.6 % (0-5); Hematocrit 37.6 % (37-47); Hemoglobin 12.4 g/dL (12.0-15.0); Lymphocyte # 2.31 X10^3/ul (0.83-4.51); Lymphocyte % 27.1 % (19-41); Mean Corpuscular Hgb 29.1 pg (27.0-32.0); Mean Corpuscular Volume 88.3 fL (81-99); Mean Platelet Vol. 11.5 fl (6.2-12.0); Monocyte# 0.36 X10^3/uL; Monocyte% 4.2 % (0-10); NRBC Flagged by Analyzer 0 % (0-5); Neutrophil # 5.75 X10^3/uL (2.7-7.7); Neutrophil % 67.5 % (47-70); Platelet Count 226 K/mm3 (150-450); RBC Distribution Width CV 14.2 % (11.6-14.6); RBC Distribution Width SD 45.4 fl (35.1-43.9); Red Blood Count 4.26 M/mm3 (4.2-5.4); White Blood Count 8.5 K/mm3 (4.4-11.0)
[2023-12-01] MEDS: 0.9% Normal Saline (1000mL) 1,000 ML 999 ML IV (19:46)
[2023-12-01] MEDS: Ondansetron 4 MG/2 ML Vial IV (19:48)
[2023-12-01] MEDS: Morphine 4 MG/ML Syringe IV (19:48)
[2023-12-01 20:03] LABS: Anion Gap 5 (5-15); BUN 12 mg/dL (7-18); BUN/Creat Ratio 14.1 RATIO (10-20); Calcium,Total 9.8 mg/dL (8.5-10.1); Chloride 109 mmol/L (98-107); Creatinine, Serum 0.85 mg/dL (0.55-1.02); EST Glomerular Filtration Rate 81 mL/min (>60); Est Glom Filt Rate - Afr Amer 98 mL/min (>60); Estimated Creatinine Clearance 104.98 ml/min; Glucose 114 mg/dL (74-106); Sodium Level 139 mmol/L (136-145)
[2023-12-01 20:36] VITALS: BP 144/80; PULSE 79; RESP 16; O2SAT 99
[2023-12-01] MEDS: Dicyclomine 20 MG/2 ML Vial IM (21:49)
[2023-12-01 21:50] VITALS: BP 148/76; PULSE 78
== END 2023-12-01 22:37 | disposition home or self-care (01) ==
PROVIDERS: Emergency Provider Student in an Organized Health Care Education/Training Program; Visit Provider Student in an Organized Health Care Education/Training Program
DX: R10.9 Unspecified abdominal pain (principal); R11.2 Nausea with vomiting, unspecified; F17.290 Nicotine dependence, other tobacco product, uncomplicated; K21.9 Gastro-esophageal reflux disease without esophagitis; F41.9 Anxiety disorder, unspecified; F32.A Depression, unspecified; Z79.51 Long term (current) use of inhaled steroids; Z79.899 Other long term (current) drug therapy
CPT/HCPCS: 74176; 80048; 81001; 85025; 96372; 96374; 96375; 99283; J7030; A4216; J2405

== ENCOUNTER 2023-12-18 18:35 | Emergency (ER) | payer MEDICAID, SELFPAY ==
[2023-12-18 18:36] VITALS: BP 164/94; PULSE 74; RESP 16; TEMP 36; O2SAT 99; BMI 37.8
[2023-12-18 19:41] LABS: Absolute Lymphocyte Count 2.29 X10^3/uL (0.83-4.51); Absolute Neutrophil Count 5.5 X10^3/uL (2.0-7.7); Basophil# 0.02 X10^3/uL; Basophil% 0.2 % (0-1); Eosinophil# 0.14 X10^3/uL; Eosinophils% 1.7 % (0-5); Hematocrit 38.2 % (37-47); Hemoglobin 12.4 g/dL (12.0-15.0); Lymphocyte # 2.29 X10^3/ul (0.83-4.51); Lymphocyte % 27.8 % (19-41); Mean Corp Hgb Conc 32.5 g/dL (32-36); Mean Corpuscular Hgb 29.1 pg (27.0-32.0); Mean Corpuscular Volume 89.7 fL (81-99); Mean Platelet Vol. 11.2 fl (6.2-12.0); Monocyte# 0.28 X10^3/uL; Monocyte% 3.4 % (0-10); NRBC Flagged by Analyzer 0 % (0-5); Neutrophil # 5.47 X10^3/uL (2.7-7.7); Neutrophil % 66.5 % (47-70); Platelet Count 210 K/mm3 (150-450); RBC Distribution Width CV 14.4 % (11.6-14.6); Red Blood Count 4.26 M/mm3 (4.2-5.4); White Blood Count 8.2 K/mm3 (4.4-11.0)
[2023-12-18 19:57] LABS: Internal QC Validated? YES +Cl - CLEAR BKGD; Pregnancy, Serum, hCG Quali. NEGATIVE Negative; Record Kit Lot#, Serum Preg. 718086
[2023-12-18 19:59] LABS: ALB/GLOB Ratio 0.9 RATIO (0.9-2.4); AST(SGOT) 78 U/L (15-37); Alanine Aminotransfer ALT/SGPT 73 U/L (13-56); Albumin, Serum 4.2 g/dL (3.2-5.0); Alkaline Phosphatase 217 U/L (45-117); Anion Gap 7 (5-15); BUN 11 mg/dL (7-18); Calcium,Total 9.8 mg/dL (8.5-10.1); Chloride 109 mmol/L (98-107); Creatinine, Serum 0.78 mg/dL (0.55-1.02); EST Glomerular Filtration Rate 90 mL/min (>60); Est Glom Filt Rate - Afr Amer 109 mL/min (>60); Estimated Creatinine Clearance 113.56 ml/min; Globulin 4.5 g/dL (2.2-4.2); Glucose 107 mg/dL (74-106); Potassium 4.3 mmol/L (3.5-5.1); Protein, Total 8.7 g/dL (6.4-8.2); Sodium Level 138 mmol/L (136-145)
[2023-12-18 20:28] LABS: Bacteria 0 SEEN /hpf (None Seen); Mucous, Urine 0 SEEN /hpf (<or=2+); White Blood Cells 0 SEEN /hpf (0-5)
[2023-12-18 20:29] LABS: Color, Urine Yellow (Yellow); Glucose, Dipstick Normal (Normal); Ketone-Dipstick Negative (Negative); Leukocyte Esterase-Dipstick Negative /ul (Negative); Nitrite-Dipstick Negative (Negative); Occult Blood-Urine 10 /ul (Negative); Protein-Dipstick 15 mg/dl (Negative); Urine Bilirubin Dipstick Negative (Negative); Urine Clarity Clear (Clear); Urine Urobilinogen Normal (Normal); Urine pH 6.5 (5.0 - 8.0)
[2023-12-18 20:44] LABS: Red Blood Cells-Urine 0-5 SEEN /hpf (0-5); Squamous Epithelial Cells - UA 0-5 SEEN /hpf (5-10)
--- NOTE | 2023-12-18 21:06 | EX.ED.DYSGE1 ---
HPI <MER Henry - Last Filed: 12/18/23 21:21> History of Present Illness Chief Complaint: Abd Pain Narrative Narrative: Patient presenting today due to concerns for intermittent right-sided flank pain and vaginal bleeding that started today. She was that she has a history of a hysterectomy and this morning began noticing vaginal spotting. She has had this in the past and has not followed up with her [employer]. She also reports increased urinary frequency and has concerns for UTI. She denies any fevers, chills, abdominal pain, nausea, and vomiting. PFSH <MER Henry - Last Filed: 12/18/23 21:21> [facility] Medical History Alcohol use Anxiety Back pain Bilateral renal stones Bipolar disorder Cardiology follow-up encounter Chronic interstitial cystitis Conversion disorder Depression Easy bruising Endometriosis Environmental and seasonal allergies Fatty liver Fibromyalgia Gastric reflux High cholesterol History of cervical cancer History of echocardiogram History of edema History of renal disease History of stress test Hypertension Kidney stone Left renal stone Leg cramps Marijuana use Migraine Peptic ulcer of stomach Restless legs Smoker Syncope Wears dentures Wears glasses Home Medications escitalopram oxalate 20 mg tablet (Lexapro) 20 mg PO DAILY DEPRESSION 09/22/21 [History Last Taken 10/27/23] omeprazole 40 mg capsule,delayed release 40 mg PO BID ACID REFLUX 09/22/21 [History Last Taken 10/27/23] quetiapine 50 mg tablet,extended release 24 hr 100 mg PO QHS MOOD 01/30/23 [History Last Taken 10/27/23] pregabalin 75 mg capsule 75 mg PO QHS PAIN 09/15/23 [History Last Taken 10/27/23] tizanidine 4 mg tablet 4 mg PO TID PRN MUSCLE SPASMS 10/28/23 [History Last Taken 10/27/23] benzonatate 100 mg capsule 100 mg PO TID #30 caps 12/12/23 [Rx Last Taken Unknown] propranolol 10 mg tablet 10 mg PO DAILY 12/12/23 [History Last Taken Unknown] rosuvastatin 5 mg tablet 5 mg PO DAILY 12/12/23 [History Last Taken Unknown] Allergy/AdvReac Type Severity Reaction Status Date / Time amitriptyline Allergy MUSCLE Verified 12/18/23 18:38 SPASMS Bleach (Sodium Hypochlorite) Allergy Hives Verified 12/18/23 18:38 codeine Allergy Hives Verified 12/18/23 18:38 ketorolac [From Toradol] Allergy Itching Verified 12/18/23 18:38 nitrofurantoin Allergy Anaphylaxis Verified 12/18/23 18:38 [From Macrodantin] doxycycline AdvReac Vomiting Verified 12/18/23 18:38 Family History Mother Hypertension Migraine Grandmother CVA (cerebral vascular accident) Grandfather Diabetes Father Myocardial infarction Surgical History History of cystoscopy History of hysterectomy Hx of cholecystectomy S/P laparoscopic surgery Social History household members: significant other Smoking Status: Current every day smoker tobacco type: e-cigarettes alcohol intake: current details: occasionally substance use type: does not use caffeine: Yes what type of physical activity do you participate in: walking frequency: 1-2 times per week seatbelt use: always do you feel safe at home: Yes additional social history: Single ROS <MER Henry - Last Filed: 12/18/23 21:21> ROS ED Constitutional Constitutional ED: Denies chills or fever(s) Cardiovascular Cardiovascular: Denies chest pain Respiratory/Chest Respiratory/Chest: Denies cough or dyspnea Gastrointestinal Gastrointestinal: Denies abdominal pain, nausea or vomiting Genitourinary Genitourinary ED: Reports urinary frequency; Denies dysuria or hematuria Musculoskeletal Musculoskeletal: Reports back pain Integumentary Denies rash Neurologic Neurologic: Denies weakness EXAM <MER Henry - Last Filed: 12/18/23 21:21> Physical Exam Const Vital Signs: 12/18/23 18:36 12/18/23 21:11 Temperature 96.8 F L 97.6 F L Temperature Source Temporal Pulse Rate 74 81 Respiratory Rate 16 16 Blood Pressure 164/94 H 152/79 H Blood Pressure Mean 117 103 Pulse Ox 99 98 Oxygen Delivery Method Room Air Positive well nourished, well developed and no apparent distress General Appearance ED: well developed HEENT Reports normocephalic and head/scalp atraumatic Mouth ED: Yes moist mucous membranes normal Eyes PERRL and EOMs intact bilaterally Neck full ROM and supple Chest Wall inspection of chest normal Resp normal respiratory effort and clear to auscultation bilaterally Cardio regular rate and regular rhythm GI soft to palpation, non-tender, non-distended and no masses Back/Spine normal ROM and normal to inspection General Back: CVA tenderness right Extremity normal to inspection and full ROM Neuro oriented x3, CN's II-XII intact bilaterally, moves all extremities, no focal motor deficits and no sensory deficits noted Sensorium / Orientation: awake and alert Psych mental status grossly normal and thought process normal Skin no rashes or lesions noted and no wounds <Dr. Gage Joya DO - Last Filed: 12/18/23 23:12> Physical Exam Const Vital Signs: 12/18/23 18:36 12/18/23 21:11 Temperature 96.8 F L 97.6 F L Temperature Source Temporal Pulse Rate 74 81 Respiratory Rate 16 16 Blood Pressure 164/94 H 152/79 H Blood Pressure Mean 117 103 Pulse Ox 99 98 Oxygen Delivery Method Room Air MDM <MER Henry - Last Filed: 12/18/23 21:21> MDM MDM Narrative Medical decision making narrative: Patient presenting due to concerns for right flank pain and vaginal bleeding. History of hysterectomy. UA does not show any red blood cells, bacteria, or UTI. She was seen here on 12/01/2023 for right-sided flank pain, CT of the abdomen pelvis was performed at that time and did not show any kidney stones. I did review her CT scan from October that also did not show any stones in either kidney. I do not feel that any imaging is indicated at this time. CBC is unremarkable, CMP shows elevated AST, ALT, alkaline phosphatase, this is consistent with previous labs. Patient did ask me for pain medication multiple times. I did order her Tylenol and she told the nurse that she did not want to take this and did not request something stronger. She was given 1 dose of tramadol here. I encouraged that she follow-up with her PCP and [employer]. She will be discharged home in stable condition and is comfortable with plan. Lab Data Attestation: I reviewed the patient's lab results. Labs: Laboratory Results - last 24 hr 12/18/23 12/18/23 19:30 20:16 WBC 8.2 RBC 4.26 Hgb 12.4 Hct 38.2 MCV 89.7 MCH 29.1 MCHC 32.5 RDW Std Deviation 47.0 H RDW Coeff of Romario 14.4 Plt Count 210 MPV 11.2 Immature Gran % (Auto) 0.400 Neut % (Auto) 66.5 Lymph % (Auto) 27.8 [place] % (Auto) 3.4 Eos % (Auto) 1.7 Baso % (Auto) 0.2 Absolute Neuts (auto) 5.5 Absolute Lymphs (auto) 2.29 Nucleated RBC % 0 Sodium 138 Potassium 4.3 Chloride 109 H Carbon Dioxide 22.0 Anion Gap 7 BUN 11 Creatinine 0.78 Estim Creat Clear Calc 113.56 Est GFR (MDRD) Af Amer 109 Est GFR (MDRD) Non-Af 90 BUN/Creatinine Ratio 14.0 Glucose 107 H Calcium 9.8 Total Bilirubin 0.30 AST 78 H ALT 73 H Alkaline Phosphatase 217 H Total Protein 8.7 H Albumin 4.2 Globulin 4.5 H Albumin/Globulin Ratio 0.9 Serum , Qual NEGATIVE Urine Color Yellow Urine Clarity Clear Urine pH 6.5 Ur Specific [place] 1.010 Urine Protein 15 H Urine Glucose (UA) Normal Urine Ketones Negative Urine Occult Blood 10 H Urine Nitrite Negative Urine Bilirubin Negative Urine Urobilinogen Normal Ur Leukocyte Esterase Negative Urine RBC 0-5 SEEN Urine WBC 0 SEEN Ur Squamous Epith Cells 0-5 SEEN Urine Bacteria 0 SEEN Urine Mucus 0 SEEN <Dr. Gage Joya, DO - Last Filed: 12/18/23 23:12> [facility] Lab Data Labs: Laboratory Results - last 24 hr 12/18/23 12/18/23 19:30 20:16 WBC 8.2 RBC 4.26 Hgb 12.4 Hct 38.2 MCV 89.7 MCH 29.1 MCHC 32.5 RDW Std Deviation 47.0 H RDW Coeff of [place]ario 14.4 Plt Count 210 MPV 11.2 Immature Gran % (Auto) 0.400 Neut % (Auto) 66.5 Lymph % (Auto) 27.8 [place] % (Auto) 3.4 Eos % (Auto) 1.7 Baso % (Auto) 0.2 Absolute Neuts (auto) 5.5 Absolute Lymphs (auto) 2.29 Nucleated RBC % 0 Sodium 138 Potassium 4.3 Chloride 109 H Carbon Dioxide 22.0 Anion Gap 7 BUN 11 Creatinine 0.78 Estim Creat Clear Calc 113.56 Est GFR (MDRD) Af Amer 109 Est GFR (MDRD) Non-Af 90 BUN/Creatinine Ratio 14.0 Glucose 107 H Calcium 9.8 Total Bilirubin 0.30 AST 78 H ALT 73 H Alkaline Phosphatase 217 H Total Protein 8.7 H Albumin 4.2 Globulin 4.5 H Albumin/Globulin Ratio 0.9 Serum , Qual NEGATIVE Urine Color Yellow Urine Clarity Clear Urine pH 6.5 Ur Specific [place] 1.010 Urine Protein 15 H Urine Glucose (UA) Normal Urine Ketones Negative Urine Occult Blood 10 H Urine Nitrite Negative Urine Bilirubin Negative Urine Urobilinogen Normal Ur Leukocyte Esterase Negative Urine RBC 0-5 SEEN Urine WBC 0 SEEN Ur Squamous Epith Cells 0-5 SEEN Urine Bacteria 0 SEEN Urine Mucus 0 SEEN Treatment and Re-Evaluation :: I have personally performed a face to face assessment of the patient and have reviewed the NANCY Note. I performed a substantive portion of the visit including all aspects of the following. My swartz findings include: History: Patient presents with right flank pain that began today. Patient states it began rather suddenly. Patient states it has been constant. Patient states it is sharp and stabbing. Patient states nothing makes it better and nothing makes it worse. Patient admits to some nausea but denies any vomiting. Patient denies any diarrhea, melena, or hematochezia. Patient also admits to some vaginal bleeding. Patient states she has had a hysterectomy in the past. Patient admits to some dysuria and frequency but denies any hematuria. Exam: Vital signs are stable except for mildly elevated blood pressure 164/94. Patient is afebrile. Patient is in no acute distress. Oral mucosa is pink and moist. Neck is supple. Trachea is midline. There is no JVD. Heart was regular rate and rhythm. Lungs are clear and equal bilateral. Abdomen is soft. Bowel sounds are normal. There is tenderness over the right upper and right lower abdomen. There is also some mild right CVA tenderness. There is no rebound or guarding noted. Cranial nerves II through XII are intact. There are no focal motor or sensory deficits noted. Medical Decision Making: Differential diagnosis includes ureteral calculus, urinary tract infection, , gastroenteritis, and abnormal vaginal bleeding. CBC will be obtained to assess for leukocytosis and anemia. Comprehensive metabolic profile will be obtained to assess for hepatic function, renal function, and electrolyte abnormality. Urinalysis will be obtained to assess for urinary tract infection and hematuria. Serum hCG will be obtained to assess for . CBC was reviewed and was within normal limits. Comprehensive metabolic profile was reviewed. Alkaline phosphatase was mildly elevated at 217. AST was slightly elevated at 78 and ALT was slightly elevated at 73. These are slightly increased from previous result. Serum hCG was reviewed and was negative. Urinalysis was reviewed. There is no evidence of urinary tract infection or hematuria. Patient has had CT scans done in the past. There has never been any ureteral or renal calculi noted. I do not feel the patient needs another CT scan of her abdomen pelvis at this time. Patient was advised of her findings. Patient was given a dose of tramadol here. Patient was instructed to take Tylenol as needed for pain at home. Patient was advised that she would need to get any further pain prescriptions from her primary care physician. Patient was instructed to follow-up with her primary care physician in 5 to 7 days. Patient understood and was agreeable with the plan. All questions were answered. Discharge Plan Triage Chief Complaint: Abd Pain ED Midlevel Provider: Chanel Mccallum ED Provider: Gage Joya Dx/Rx/DC Orders Clinical Impression: Acute flank pain, Dysuria Instructions: ED Flank Pain, Uncertain Cause Prescriptions: No Action rosuvastatin 5 mg tablet 5 mg PO DAILY Patient Comments: TAKE 1 TABLET BY MOUTH ONCE DAILY propranolol 10 mg tablet 10 mg PO DAILY Patient Comments: TAKE 1 TABLET BY MOUTH ONCE DAILY benzonatate 100 mg capsule 100 mg PO TID Qty: 30 0RF omeprazole 40 mg Capsule,Delayed Release(Dr/Ec) 40 mg PO BID escitalopram oxalate [Lexapro] 20 mg Tablet 20 mg PO DAILY quetiapine 50 mg tablet extended release 24 hr 100 mg PO QHS pregabalin 75 mg capsule 75 mg PO QHS Patient Comments: PT STATES THAT THEY USUALLY ONLY TAKE THIS AT BEDTIME BECAUSE IT MAKES THEM A ZOMBIE ( OF 10-28-23) tizanidine 4 mg tablet 4 mg PO TID PRN (Reason: MUSCLE SPASMS ) Patient Comments: PT STATES THAT THEY USUALLY TAKE ALL THREE TABLETS TOGETHER ONCE DAILY AT BEDTIME BECAUSE IT MAKES THEM DROWSY ( OF 10-28-23) Primary Care Provider: Dean Varghese Referrals: Dean Varghese DO [Primary Care Provider] - 3-5 Days Activity Restrictions/Additional Instructions: Follow-up with PCP and return for any worsening of your symptoms. Disposition Disposition: Home, Self Care Discharge Date/Time: 12/18/23 21:13
[2023-12-18 21:11] VITALS: BP 152/79; PULSE 81; RESP 16; TEMP 36.4; O2SAT 98
[2023-12-18] MEDS: traMADol 50 MG Tablet PO (21:11)
== END 2023-12-18 21:13 | disposition home or self-care (01) ==
PROVIDERS: Emergency Provider Emergency Medicine; Visit Provider Emergency Medicine
DX: R10.9 Unspecified abdominal pain (principal); F31.9 Bipolar disorder, unspecified; R30.0 Dysuria; F17.290 Nicotine dependence, other tobacco product, uncomplicated; K21.9 Gastro-esophageal reflux disease without esophagitis; E78.00 Pure hypercholesterolemia, unspecified; I10 Essential (primary) hypertension; F41.9 Anxiety disorder, unspecified; Z79.899 Other long term (current) drug therapy
CPT/HCPCS: 80053; 81001; 84703; 85025; 99282

== ENCOUNTER 2024-02-22 16:38 | Emergency (ER) | payer MEDICAID, SELFPAY ==
[2024-02-22 16:39] VITALS: BP 154/105; PULSE 107; RESP 20; TEMP 36.6; O2SAT 98; BMI 39.5
[2024-02-22] MEDS: Ondansetron 4 MG/2 ML Vial IV (17:05)
[2024-02-22 17:16] LABS: Absolute Lymphocyte Count 2.53 X10^3/uL (0.83-4.51); Absolute Neutrophil Count 4.2 X10^3/uL (2.0-7.7); Basophil# 0.03 X10^3/uL; Basophil% 0.4 % (0-1); Eosinophil# 0.17 X10^3/uL; Eosinophils% 2.3 % (0-5); Hematocrit 35.7 % (37-47); Hemoglobin 11.9 g/dL (12.0-15.0); Lymphocyte # 2.53 X10^3/ul (0.83-4.51); Lymphocyte % 34.1 % (19-41); Mean Corp Hgb Conc 33.3 g/dL (32-36); Mean Corpuscular Hgb 29.4 pg (27.0-32.0); Mean Corpuscular Volume 88.1 fL (81-99); Mean Platelet Vol. 10.9 fl (6.2-12.0); Monocyte# 0.42 X10^3/uL; Monocyte% 5.7 % (0-10); NRBC Flagged by Analyzer 0 % (0-5); Neutrophil # 4.23 X10^3/uL (2.7-7.7); POSITIVE MORPHOLOGY YES; Platelet Count 196 K/mm3 (150-450); RBC Distribution Width CV 14.6 % (11.6-14.6); RBC Distribution Width SD 46.5 fl (35.1-43.9); Red Blood Count 4.05 M/mm3 (4.2-5.4); White Blood Count 7.4 K/mm3 (4.4-11.0)
[2024-02-22 17:18] LABS: Differential Indicated SCAN CRITERIA MET
[2024-02-22 17:22] LABS: Anion Gap 8 (5-15); BUN 7 mg/dL (7-18); BUN/Creat Ratio 8.4 RATIO (10-20); Calcium,Total 9.4 mg/dL (8.5-10.1); Chloride 110 mmol/L (98-107); Creatinine, Serum 0.83 mg/dL (0.55-1.02); EST Glomerular Filtration Rate 83 mL/min (>60); Est Glom Filt Rate - Afr Amer 101 mL/min (>60); Estimated Creatinine Clearance 109.45 ml/min; Glucose 139 mg/dL (74-106); Potassium 3.4 mmol/L (3.5-5.1); Sodium Level 141 mmol/L (136-145)
[2024-02-22] MEDS: Dicyclomine 20 MG/2 ML Vial IM (17:30)
[2024-02-22 17:58] LABS: Differential Comment SCANNED
--- NOTE | 2024-02-22 18:01 | EX.ED.DYSGE1 ---
HPI <MER Henry - Last Filed: 02/22/24 19:49> History of Present Illness Chief Complaint: Nausea/Vomiting Narrative Narrative: Patient presenting today due to nausea, headache, intermittent fevers, and neck pain that started Thursday evening. She had 1 episode of vomiting today. She reports that she was recently sick with COVID and bronchitis which she was on antibiotics for. Her was sick with a stomach bug recently. She denies any abdominal pain, chest pain, shortness of breath. PFS <MER Henry - Last Filed: 02/22/24 19:49> [facility] Medical History Alcohol use Anxiety Back pain Bilateral renal stones Bipolar disorder Cardiology follow-up encounter Chronic interstitial cystitis Conversion disorder Depression Easy bruising Endometriosis Environmental and seasonal allergies Fatty liver Fibromyalgia Gastric reflux High cholesterol History of cervical cancer History of echocardiogram History of edema History of renal disease History of stress test Hypertension Kidney stone Left renal stone Leg cramps Marijuana use Migraine Peptic ulcer of stomach Restless legs Smoker Syncope Wears dentures Wears glasses Home Medications escitalopram oxalate 20 mg tablet (Lexapro) 20 mg PO DAILY DEPRESSION 09/22/21 [History Last Taken 10/27/23] omeprazole 40 mg capsule,delayed release 40 mg PO BID ACID REFLUX 09/22/21 [History Last Taken 10/27/23] quetiapine 50 mg tablet,extended release 24 hr 100 mg PO QHS MOOD 01/30/23 [History Last Taken 10/27/23] pregabalin 75 mg capsule 75 mg PO QHS PAIN 09/15/23 [History Last Taken 10/27/23] tizanidine 4 mg tablet 4 mg PO TID PRN MUSCLE SPASMS 10/28/23 [History Last Taken 10/27/23] benzonatate 100 mg capsule 100 mg PO TID #30 caps 12/12/23 [Rx Last Taken Unknown] propranolol 10 mg tablet 10 mg PO DAILY 12/12/23 [History Last Taken Unknown] rosuvastatin 5 mg tablet 5 mg PO DAILY 12/12/23 [History Last Taken Unknown] Allergy/AdvReac Type Severity Reaction Status Date / Time amitriptyline Allergy MUSCLE Verified 02/22/24 16:39 SPASMS Bleach (Sodium Hypochlorite) Allergy Hives Verified 02/22/24 16:39 codeine Allergy Hives Verified 02/22/24 16:39 ketorolac [From Toradol] Allergy Itching Verified 02/22/24 16:39 nitrofurantoin Allergy Anaphylaxis Verified 02/22/24 16:39 [From Macrodantin] doxycycline AdvReac Vomiting Verified 02/22/24 16:39 Family History Mother Hypertension Migraine Grandmother CVA (cerebral vascular accident) Grandfather Diabetes Father Myocardial infarction Surgical History History of cystoscopy History of hysterectomy Hx of cholecystectomy S/P laparoscopic surgery Social History household members: significant other Smoking Status: Current every day smoker tobacco type: e-cigarettes alcohol intake: current details: occasionally substance use type: does not use caffeine: Yes what type of physical activity do you participate in: walking frequency: 1-2 times per week seatbelt use: always do you feel safe at home: Yes additional social history: Single ROS <MER Henry - Last Filed: 02/22/24 19:49> ROS ED Constitutional Constitutional ED: Reports fever(s) and subjective Eyes Eyes: Denies change in vision Cardiovascular Cardiovascular: Denies chest pain or palpitations Respiratory/Chest Respiratory/Chest: Denies cough or dyspnea Gastrointestinal Gastrointestinal: Reports nausea and vomiting; Denies abdominal pain, constipation or diarrhea Genitourinary Genitourinary ED: Denies dysuria, hematuria or urinary urgency Musculoskeletal Musculoskeletal: Reports neck pain; Denies arthralgias or myalgias Integumentary Denies rash Neurologic Neurologic: Reports headache(s); Denies paresthesias or weakness EXAM <MER Henyr - Last Filed: 02/22/24 19:49> Physical Exam Const Vital Signs: 02/22/24 16:39 02/22/24 16:57 02/22/24 19:33 Temperature 97.9 F 99.1 F Temperature Source Temporal Oral Pulse Rate 107 H 93 Respiratory Rate 20 H 16 Respiratory Effort Normal Non-Labored Blood Pressure 154/105 H 159/86 H Blood Pressure Mean 121 110 Pulse Ox 98 94 Oxygen Delivery Method Room Air Room Air 02/22/24 19:33 Temperature 99.1 F Temperature Source Pulse Rate 93 Respiratory Rate 18 Respiratory Effort Blood Pressure 159/86 H Blood Pressure Mean 110 Pulse Ox 94 Oxygen Delivery Method Positive well nourished, well developed and no apparent distress General Appearance ED: well developed HEENT Reports normocephalic and head/scalp atraumatic Mouth ED: Yes moist mucous membranes normal Eyes PERRL and EOMs intact bilaterally Neck full ROM and supple Neck Narrative: Right sided paracervical and trapezius tenderness, negative Kernig sign, negative Brudzinski sign, no meningeal signs Chest Wall inspection of chest normal Resp normal respiratory effort and clear to auscultation bilaterally Cardio regular rate and regular rhythm GI soft to palpation, non-tender, non-distended and no masses Back/Spine normal ROM and normal to inspection Extremity normal to inspection and full ROM Neuro oriented x3, CN's II-XII intact bilaterally, moves all extremities, no focal motor deficits and no sensory deficits noted Sensorium / Orientation: awake and alert Psych mental status grossly normal and thought process normal Skin no rashes or lesions noted and no wounds <Dr. Mark Cao DO - Last Filed: 02/22/24 20:44> Physical Exam Const Vital Signs: 02/22/24 16:39 02/22/24 16:57 02/22/24 19:33 Temperature 97.9 F 99.1 F Temperature Source Temporal Oral Pulse Rate 107 H 93 Respiratory Rate 20 H 16 Respiratory Effort Normal Non-Labored Blood Pressure 154/105 H 159/86 H Blood Pressure Mean 121 110 Pulse Ox 98 94 Oxygen Delivery Method Room Air Room Air 02/22/24 19:33 Temperature 99.1 F Temperature Source Pulse Rate 93 Respiratory Rate 18 Respiratory Effort Blood Pressure 159/86 H Blood Pressure Mean 110 Pulse Ox 94 Oxygen Delivery Method [facility] <MER Henry - Last Filed: 02/22/24 19:49> [facility] Narrative Medical decision making narrative: Patient presenting today with various vague complaints including headache, nausea, neck pain, intermittent fevers, and an episode of vomiting. She is well-appearing and in no acute distress. She is afebrile. Negative Kernig's and Brudzinski sign, low suspicion for meningitis. She does have reproducible tenderness in her neck to the right trapezius and right paracervical muscles. This is consistent with a muscular strain. She has a posterior headache that does not sound consistent with a SAH. She was initially given Zofran, Tylenol, and Bentyl, she then did refuse the Tylenol and was given a migraine cocktail consisting of Benadryl and Reglan as well as a muscle relaxer. On reexamination she does report some improvement of her symptoms. She has requested narcotic pain medication on several visits, we did discuss that this would be inappropriate today and therefore she was not treated with narcotics. Labs overall are unremarkable. Have encouraged follow-up with her PCP and she will be discharged home in stable condition. This patient was seen with a PA/SR ACCOUNT EXECUTIVE Individually assessed they patient including history and physical. I have reviewed everything on the chart that is available and agree with the documentation provided by the PA/SR ACCOUNT EXECUTIVE including discussion about the assessment, treatment plan, discussion, and return precautions. Patient was presenting with multiple complaints including headache, neck pain, nausea, vomiting. She is not really have any abdominal pain she states. She does report some fevers at home. She states she was at work and took Tylenol for 1 today. Vital signs are completely stable and she is afebrile. She does not have any meningeal signs although she complains of tenderness. This is reproducible. Patient initially ordered Tylenol but declines. Review of the medical record shows that she has declined this in the past. She was then ordered Bentyl IM. She was given Reglan and Benadryl for her continued headache. She was also given a muscle relaxer for her neck pain. I also had the PA ordered her some Solu-Medrol which may help with her headache and her neck pain. Lab work is unremarkable today. It has been unchanged significantly. She has had 17 CTs of her abdomen pelvis and I do not believe she needs repeat today and she is not admitting to any abdominal pain. I do not believe she is a CAT scan of her head or neck and not believe she has any signs or symptoms of meningitis. She has had multiple visits here requesting narcotic pain medication. I did discuss with her that I do not think it would be appropriate to treat her with narcotics. The PA did give her tramadol but this will be the limited which we will get for pain control today as she is already been treated with multiple medications. So far her lab work is reassuring I do not think she has anything acute going on. Lab Data Labs: Laboratory Results - last 24 hr 02/22/24 16:55 WBC 7.4 RBC 4.05 L Hgb 11.9 L Hct 35.7 L MCV 88.1 MCH 29.4 MCHC 33.3 RDW Std Deviation 46.5 H RDW Coeff of Romario 14.6 Plt Count 196 MPV 10.9 Immature Gran % (Auto) 0.500 Neut % (Auto) 57.0 Lymph % (Auto) 34.1 [place] % (Auto) 5.7 Eos % (Auto) 2.3 Baso % (Auto) 0.4 Absolute Neuts (auto) 4.2 Absolute Lymphs (auto) 2.53 Nucleated RBC % 0 Differential Comment SCANNED Sodium 141 Potassium 3.4 L Chloride 110 H Carbon Dioxide 23.0 Anion Gap 8 BUN 7 Creatinine 0.83 Estim Creat Clear Calc 109.45 Est GFR (MDRD) Af Amer 101 Est GFR (MDRD) Non-Af 83 BUN/Creatinine Ratio 8.4 L Glucose 139 H Calcium 9.4 <Dr. Mark Cao, DO - Last Filed: 02/22/24 20:44> [facility] MDM Narrative Medical decision making narrative: Patient presenting today with various vague complaints including headache, nausea, neck pain, intermittent fevers, and an episode of vomiting. She is well-appearing and in no acute distress. She is afebrile. Negative Kernig's and Brudzinski sign, low suspicion for meningitis. She does have reproducible tenderness in her neck to the right trapezius and right paracervical muscles. This is consistent with a muscular strain. She has a posterior headache that does not sound consistent with a SAH. She was initially given Zofran, Tylenol, and Bentyl, she then did refuse the Tylenol and was given a migraine cocktail consisting of Benadryl and Reglan as well as a muscle relaxer. On reexamination she does report some improvement of her symptoms. She has requested narcotic pain medication on several visits, we did discuss that this would be inappropriate today and therefore she was not treated with narcotics. Labs overall are unremarkable. Have encouraged follow-up with her PCP and she will be discharged home in stable condition. This patient was seen with a PA/SR ACCOUNT EXECUTIVE Individually assessed they patient including history and physical. I have reviewed everything on the chart that is available and agree with the documentation provided by the PA/SR ACCOUNT EXECUTIVE including discussion about the assessment, treatment plan, discussion, and return precautions. Patient was presenting with multiple complaints including headache, neck pain, nausea, vomiting. She is not really have any abdominal pain she states. She does report some fevers at home. She states she was at work and took Tylenol for 1 today. Vital signs are completely stable and she is afebrile. She does not have any meningeal signs although she complains of tenderness. This is reproducible. Patient initially ordered Tylenol but declines. Review of the medical record shows that she has declined this in the past. She was then ordered Bentyl IM. She was given Reglan and Benadryl for her continued headache. She was also given a muscle relaxer for her neck pain. I also had the PA ordered her some Solu-Medrol which may help with her headache and her neck pain. Lab work is unremarkable today. It has been unchanged significantly. She has had 17 CTs of her abdomen pelvis and I do not believe she needs repeat today and she is not admitting to any abdominal pain. I do not believe she is a CAT scan of her head or neck and not believe she has any signs or symptoms of meningitis. She has had multiple visits here requesting narcotic pain medication. I did discuss with her that I do not think it would be appropriate to treat her with narcotics. The PA did give her tramadol but this will be the limited which we will get for pain control today as she is already been treated with multiple medications. So far her lab work is reassuring I do not think she has anything acute going on. Generalized patient discharged stable condition. Impression: 1. Headache 2. Neck pain 3. Nausea/vomiting Lab Data Labs: Laboratory Results - last 24 hr 02/22/24 16:55 WBC 7.4 RBC 4.05 L Hgb 11.9 L Hct 35.7 L MCV 88.1 MCH 29.4 MCHC 33.3 RDW Std Deviation 46.5 H RDW Coeff of Romario 14.6 Plt Count 196 MPV 10.9 Immature Gran % (Auto) 0.500 Neut % (Auto) 57.0 Lymph % (Auto) 34.1 [place] % (Auto) 5.7 Eos % (Auto) 2.3 Baso % (Auto) 0.4 Absolute Neuts (auto) 4.2 Absolute Lymphs (auto) 2.53 Nucleated RBC % 0 Differential Comment SCANNED Sodium 141 Potassium 3.4 L Chloride 110 H Carbon Dioxide 23.0 Anion Gap 8 BUN 7 Creatinine 0.83 Estim Creat Clear Calc 109.45 Est GFR (MDRD) Af Amer 101 Est GFR (MDRD) Non-Af 83 BUN/Creatinine Ratio 8.4 L Glucose 139 H Calcium 9.4 Discharge Plan Triage Chief Complaint: Nausea/Vomiting Other Complaint: Fever ED Midlevel Provider: Chanel Mccallum ED Provider: Mark Cao Dx/Rx/DC Orders Clinical Impression: Headache, Neck strain, Nausea Instructions: Self-Care for Headaches, ED Neck Sprain or Strain Prescriptions: No Action rosuvastatin 5 mg tablet 5 mg PO DAILY Patient Comments: TAKE 1 TABLET BY MOUTH ONCE DAILY propranolol 10 mg tablet 10 mg PO DAILY Patient Comments: TAKE 1 TABLET BY MOUTH ONCE DAILY benzonatate 100 mg capsule 100 mg PO TID Qty: 30 0RF omeprazole 40 mg Capsule,Delayed Release(Dr/Ec) 40 mg PO BID escitalopram oxalate [Lexapro] 20 mg Tablet 20 mg PO DAILY quetiapine 50 mg tablet extended release 24 hr 100 mg PO QHS pregabalin 75 mg capsule 75 mg PO QHS Patient Comments: PT STATES THAT THEY USUALLY ONLY TAKE THIS AT BEDTIME BECAUSE IT MAKES THEM A ZOMBIE ( OF 10-28-23) tizanidine 4 mg tablet 4 mg PO TID PRN (Reason: MUSCLE SPASMS ) Patient Comments: PT STATES THAT THEY USUALLY TAKE ALL THREE TABLETS TOGETHER ONCE DAILY AT BEDTIME BECAUSE IT MAKES THEM DROWSY ( OF 10-28-23) Primary Care Provider: Dean Varghese Referrals: Dean Varghese DO [Primary Care Provider] - 5-7 Days Activity Restrictions/Additional Instructions: Please follow-up with your PCP and return for any worsening of your symptoms. Disposition Disposition: Home, Self Care Discharge Date/Time: 02/22/24 19:36
[2024-02-22] MEDS: DiphenhydrAMINE 50 MG/ML Syringe 25 MG IV (18:07)
[2024-02-22] MEDS: Metoclopramide 10 MG/2 ML Vial 5 MG IV (18:07)
[2024-02-22] MEDS: MethylPREDNISolone 125 MG/2 ML Vial IV (18:12)
[2024-02-22] MEDS: Orphenadrine 100 MG Tablet PO (18:16)
[2024-02-22 19:33] VITALS: BP 159/86; PULSE 93; RESP 16; RESP 18; TEMP 37.3; O2SAT 94
== END 2024-02-22 19:36 | disposition home or self-care (01) ==
PROVIDERS: Physician Assistant; Emergency Provider Student in an Organized Health Care Education/Training Program; Visit Provider Student in an Organized Health Care Education/Training Program
DX: R51.9 Headache, unspecified (principal); M54.2 Cervicalgia; R11.2 Nausea with vomiting, unspecified; F17.290 Nicotine dependence, other tobacco product, uncomplicated; S16.1XXA Strain of muscle, fascia and tendon at neck level, initial encounter; Z86.16 Personal history of COVID-19; X58.XXXA Exposure to other specified factors, initial encounter
CPT/HCPCS: 80048; 85025; 87631; 96372; 96374; 96375; 99283; J7030; A4216; J2405

== ENCOUNTER 2024-03-30 18:42 | Emergency (ER) | payer MEDICAID, SELFPAY ==
[2024-03-30 18:43] VITALS: BP 160/105; PULSE 90; RESP 18; TEMP 35.5; O2SAT 99; BMI 38.9
--- NOTE | 2024-03-30 19:22 | EX.ED.DYSGE1 ---
HPI History of Present Illness Chief Complaint: Flank Pain Narrative Narrative: 33-year-old female past medical history of previous kidney stones, urinary tract infections, presents with right flank pain that she has had since the end of last week, all 5 to 6 days ago. She denies any high-grade fever but states yesterday she had a low-grade fever as high as 100.2 ?F. No nausea or vomiting. She has had history of ureteral stones for which her urologist, Dr. Lagunas, has had to scooped them out no matter what the size because they do not tend to pass on their own. Last time she thinks she had a kidney stone was sometime last year. She has noticed hematuria intermittently over the last few days as well. [facility] Medical History Left renal stone Smoker Bilateral renal stones Wears glasses Wears dentures Alcohol use Marijuana use History of renal disease Fatty liver High cholesterol Easy bruising Restless legs Syncope Gastric reflux Environmental and seasonal allergies Leg cramps History of edema History of echocardiogram History of stress test Cardiology follow-up encounter Hypertension Peptic ulcer of stomach Migraine Chronic interstitial cystitis Endometriosis Bipolar disorder Anxiety Depression Back pain Conversion disorder History of cervical cancer Kidney stone Fibromyalgia Home Medications ?Medication ?Instructions ?Recorded ?Last Taken ?Type escitalopram oxalate 20 mg tablet 20 mg PO DAILY DEPRESSION 09/22/21 10/27/23 History (Lexapro) omeprazole 40 mg capsule,delayed 40 mg PO BID ACID REFLUX 09/22/21 10/27/23 History release quetiapine 50 mg tablet,extended 100 mg PO QHS MOOD 01/30/23 10/27/23 History release 24 hr pregabalin 75 mg capsule 75 mg PO QHS PAIN 09/15/23 10/27/23 History tizanidine 4 mg tablet 4 mg PO TID PRN MUSCLE SPASMS 10/28/23 10/27/23 History benzonatate 100 mg capsule 100 mg PO TID #30 caps 12/12/23 Unknown Rx propranolol 10 mg tablet 10 mg PO DAILY 12/12/23 Unknown History rosuvastatin 5 mg tablet 5 mg PO DAILY 12/12/23 Unknown History Allergy/AdvReac Type Severity Reaction Status Date / Time amitriptyline Allergy MUSCLE Verified 03/30/24 18:43 SPASMS Bleach (Sodium Hypochlorite) Allergy Hives Verified 03/30/24 18:43 codeine Allergy Hives Verified 03/30/24 18:43 ketorolac (From Toradol) Allergy Itching Verified 03/30/24 18:43 nitrofurantoin (From Allergy Anaphylaxis Verified 03/30/24 18:43 Macrodantin) doxycycline AdvReac Vomiting Verified 03/30/24 18:43 Family History Mother Hypertension Migraine Grandmother CVA (cerebral vascular accident) Grandfather Diabetes Father Myocardial infarction Surgical History History of cystoscopy S/P laparoscopic surgery History of hysterectomy Hx of cholecystectomy Social History household members: significant other Smoking Status: Current every day smoker tobacco type: e-cigarettes alcohol intake: current details: occasionally substance use type: does not use caffeine: Yes what type of physical activity do you participate in: walking frequency: 1-2 times per week seatbelt use: always do you feel safe at home: Yes additional social history: Single ROS ROS ED ROS Narrative Constitutional: Low-grade fever, no chills. HEENT: No sore throat. No neck pain. No loss of vision. No rhinorrhea. Cardiovascular: No chest pain. No palpitations. No pedal edema. Respiratory: No cough, no shortness of breath. Abdominal: No abdominal pain. No nausea. No vomiting. Genitourinary: Positive dysuria and hematuria. Positive right flank pain. Right-sided back pain when urinating. Musculoskeletal: No myalgias. No arthralgias. Neurologic: No headaches. No dizziness. No lightheadedness. Skin: No rash. No change in color. Psychiatric: No depression. No anxiety. EXAM Physical Exam Narrative Exam Narrative: Afebrile. Vital signs noted. HEENT: Normocephalic. Atraumatic. PERRL, EOMI. Neck soft and supple. No point tenderness or step off. Cardiovascular: Regular rate and rhythm. No murmurs, rubs, or gallops appreciated. Respiratory: No tachypnea. Lungs clear to auscultation bilaterally. Gastrointestinal: Abdomen soft, nontender, with normoactive bowel sounds. No rebound or guarding. No appreciable CVA tenderness to percussion, right. Neurological: Awake. Alert. Nonfocal, nonlateralizing. Skin: No rash. Normal color. No pallor. Musculoskeletal: No pedal edema. Full range of motion extremities. Const Vital Signs: 03/30/24 18:43 Temperature 96 F L Temperature Source Temporal Pulse Rate 90 Respiratory Rate 18 Blood Pressure 160/105 H Blood Pressure Mean 123 Pulse Ox 99 Oxygen Delivery Method Room Air MDM MDM MDM Narrative Medical decision making narrative: In the differential diagnosis is ureterolithiasis versus pyelonephritis versus musculoskeletal back pain. Comprehensive workup was pursued. She has an allergy to Toradol so she was administered morphine, ondansetron, and normal saline at 250 mL/h. I reviewed her laboratory work and she has normal white count of 8.1, hemoglobin normal at 12.8, hematocrit 39.5, platelet count normal at 238. BMP is grossly unremarkable with a normal sodium of 139, potassium normal at 3.8, BUN normal at 10 and creatinine 0.92. Urinalysis obtained and reviewed and is negative for infection with 0-5 WBCs and negative for hematuria with 0-[address] of the abdomen pelvis was obtained and radiology report was reviewed. There is no evidence of ureterolithiasis or obstructing kidney stone. Appendix was visualized and is normal. At this point in time, I am unsure as to the cause of her right flank pain. Upon repeat examination at approximately 2100, she is resting comfortably looking at her cellular telephone. I feel she can be discharged safely home with follow-up. I feel that [id number] medications should be adequate for analgesia and that narcotic pain medication is not indicated for her flank pain of unknown etiology. She will follow-up with her primary care provider. Return instructions reviewed. Disposition is discharged home in stable condition. History & Record Review Discussion w/independent historian: Patient Lab Data Attestation: I reviewed the patient's lab results. Labs: Laboratory Results - last 24 hr 03/30/24 03/30/24 19:40 19:46 WBC 8.1 RBC 4.36 Hgb 12.8 Hct 39.5 MCV 90.6 MCH 29.4 MCHC 32.4 RDW Std Deviation 46.6 H RDW Coeff of Romario 14.0 Plt Count 238 MPV 11.2 Immature Gran % (Auto) 0.200 Neut % (Auto) 64.6 Lymph % (Auto) 30.0 [place] % (Auto) 4.4 Eos % (Auto) 0.6 Baso % (Auto) 0.2 Absolute Neuts (auto) 5.2 Absolute Lymphs (auto) 2.44 Nucleated RBC % 0 Sodium 139 Potassium 3.8 Chloride 107 Carbon Dioxide 24.0 Anion Gap 8 BUN 10 Creatinine 0.92 Estim Creat Clear Calc 97.90 Est GFR (MDRD) Af Amer 90 Est GFR (MDRD) Non-Af 75 BUN/Creatinine Ratio 10.9 Glucose 101 Calcium 9.8 Urine Color Yellow Urine Clarity Sl Cloudy Urine pH 6.5 Ur Specific [place] 1.010 Urine Protein Negative Urine Glucose (UA) Normal Urine Ketones Negative Urine Occult Blood 10 H Urine Nitrite Negative Urine Bilirubin Negative Urine Urobilinogen Normal Ur Leukocyte Esterase Negative Urine RBC 0-5 SEEN Urine WBC 0-5 SEEN Ur Squamous Epith Cells 5-10 SEEN Urine Bacteria 1+ Urine Mucus 1+ Radiography Diagnostic Testing: Clinical Impression(s) from Imaging Studies Abdomen/Pelvis CT 03/30/24 19:57 IMPRESSION: Fatty liver. Small fatty umbilical hernia. Electronically Signed: Rodrigo Evans DO at 20:34 EDT , Discharge Plan Triage Chief Complaint: Flank Pain ED Provider: Hayder Hudson Dx/Rx/DC Orders Clinical Impression: Right flank pain Instructions: ED Flank Pain, Uncertain Cause Prescriptions: No Action rosuvastatin 5 mg tablet 5 mg PO DAILY Patient Comments: TAKE 1 TABLET BY MOUTH ONCE DAILY propranolol 10 mg tablet 10 mg PO DAILY Patient Comments: TAKE 1 TABLET BY MOUTH ONCE DAILY benzonatate 100 mg capsule 100 mg PO TID Qty: 30 0RF omeprazole 40 mg Capsule,Delayed Release(Dr/Ec) 40 mg PO BID escitalopram oxalate [Lexapro] 20 mg Tablet 20 mg PO DAILY quetiapine 50 mg tablet extended release 24 hr 100 mg PO QHS pregabalin 75 mg capsule 75 mg PO QHS Patient Comments: PT STATES THAT THEY USUALLY ONLY TAKE THIS AT BEDTIME BECAUSE IT MAKES THEM A ZOMBIE ( OF 10-28-23) tizanidine 4 mg tablet 4 mg PO TID PRN (Reason: MUSCLE SPASMS ) Patient Comments: PT STATES THAT THEY USUALLY TAKE ALL THREE TABLETS TOGETHER ONCE DAILY AT BEDTIME BECAUSE IT MAKES THEM DROWSY ( OF 10-28-23) Primary Care Provider: Dean Varghese Referrals: Dean Varghese DO [Primary Care Provider] - 3-5 Days if not improving Print Language: Tuvaluan Disposition Disposition: Home, Self Care
[2024-03-30] MEDS: Ondansetron 4 MG/2 ML Vial IV (19:40)
[2024-03-30] MEDS: 0.9% Normal Saline (1000mL) 1,000 ML 250 ML IV (19:40)
[2024-03-30] MEDS: Morphine 4 MG/ML Syringe IV (19:41)
[2024-03-30 19:49] LABS: Absolute Lymphocyte Count 2.44 X10^3/uL (0.83-4.51); Absolute Neutrophil Count 5.2 X10^3/uL (2.0-7.7); Basophil# 0.02 X10^3/uL; Basophil% 0.2 % (0-1); Eosinophil# 0.05 X10^3/uL; Eosinophils% 0.6 % (0-5); Hematocrit 39.5 % (37-47); Hemoglobin 12.8 g/dL (12.0-15.0); Lymphocyte # 2.44 X10^3/ul (0.83-4.51); Mean Corp Hgb Conc 32.4 g/dL (32-36); Mean Corpuscular Hgb 29.4 pg (27.0-32.0); Mean Corpuscular Volume 90.6 fL (81-99); Mean Platelet Vol. 11.2 fl (6.2-12.0); Monocyte# 0.36 X10^3/uL; Monocyte% 4.4 % (0-10); NRBC Flagged by Analyzer 0 % (0-5); Neutrophil # 5.23 X10^3/uL (2.7-7.7); Neutrophil % 64.6 % (47-70); Platelet Count 238 K/mm3 (150-450); RBC Distribution Width SD 46.6 fl (35.1-43.9); Red Blood Count 4.36 M/mm3 (4.2-5.4); White Blood Count 8.1 K/mm3 (4.4-11.0)
[2024-03-30 19:50] LABS: Color, Urine Yellow (Yellow); Glucose, Dipstick Normal (Normal); Ketone-Dipstick Negative (Negative); Leukocyte Esterase-Dipstick Negative /ul (Negative); Nitrite-Dipstick Negative (Negative); Occult Blood-Urine 10 /ul (Negative); Protein-Dipstick Negative (Negative); Urine Bilirubin Dipstick Negative (Negative); Urine Urobilinogen Normal (Normal); Urine pH 6.5 (5.0 - 8.0)
[2024-03-30 19:57] LABS: Bacteria 1+ /hpf (None Seen); Mucous, Urine 1+ /hpf (<or=2+); Red Blood Cells-Urine 0-5 SEEN /hpf (0-5); Squamous Epithelial Cells - UA 5-10 SEEN /hpf (5-10); Urine Clarity Sl Cloudy (Clear); White Blood Cells 0-5 SEEN /hpf (0-5)
--- NOTE | 2024-03-30 19:57 | CT_ITS ---
STUDY: CT ABDOMEN AND PELVIS WITHOUT CONTRAST REASON FOR EXAM: Female, 33 years old. Kidney Stone RADIATION DOSAGE (If Supplied By Facility): CTDIvol = ( 21.24 ) mGy, DLP = ( 1199.35 ) mGycm TECHNIQUE: Transaxial images were obtained from the dome of the diaphragm to the symphysis pubis without oral contrast, and without intravenous contrast. Sagittal and coronal images were reconstructed. Individualized dose optimization techniques were used for this CT. COMPARISON: None. FINDINGS: The visualized lung bases are unremarkable. The visualized portions of the heart are within normal limits. Fatty liver. Nonvisualization of the gallbladder. No dilatation of the extrahepatic biliary system. Normal spleen. Normal pancreas. Normal bilateral adrenal glands. Normal right kidney. Normal left kidney. Normal visualized stomach. Normal small intestine. Normal colon. The appendix is visualized and appears normal. Normal abdominal aorta. Normal inferior vena cava. Normal retroperitoneum. Normal urinary bladder. Small fatty umbilical hernia. Normal osseous structures. CT/Abdomen/Pelvis without Cont IMPRESSION: Fatty liver. Small fatty umbilical hernia. Electronically Signed: Rodrigo Evans DO at 20:34 EDT Reading Location ID and State: [facility] / [place] Tel [phone], Service support ,
[2024-03-30 20:03] LABS: Anion Gap 8 (5-15); BUN 10 mg/dL (7-18); BUN/Creat Ratio 10.9 RATIO (10-20); Calcium,Total 9.8 mg/dL (8.5-10.1); Chloride 107 mmol/L (98-107); Creatinine, Serum 0.92 mg/dL (0.55-1.02); EST Glomerular Filtration Rate 75 mL/min (>60); Est Glom Filt Rate - Afr Amer 90 mL/min (>60); Glucose 101 mg/dL (74-106); Potassium 3.8 mmol/L (3.5-5.1); Sodium Level 139 mmol/L (136-145)
[2024-03-30 20:42] VITALS: BP 154/95; PULSE 104; RESP 22; O2SAT 99
[2024-03-30 21:15] VITALS: BP 123/77; PULSE 82; RESP 18; TEMP 36.7; O2SAT 96
== END 2024-03-30 21:17 | disposition home or self-care (01) ==
PROVIDERS: Emergency Provider Emergency Medicine; Visit Provider Emergency Medicine
DX: R10.9 Unspecified abdominal pain (principal); F17.290 Nicotine dependence, other tobacco product, uncomplicated
CPT/HCPCS: 74176; 80048; 81001; 85025; 96361; 96374; 96375; 96376; 99283; J7030; A4216; J2405

== ENCOUNTER 2024-04-01 13:22 | Emergency (ER) | payer MEDICAID, SELFPAY ==
[2024-04-01 13:23] VITALS: BP 139/103; PULSE 76; PULSE 78; RESP 18; TEMP 37; O2SAT 100; BMI 38.9
--- NOTE | 2024-04-01 13:54 | EX.ED.DYSGE1 ---
HPI <LITA Keenan - Last Filed: 04/01/24 16:10> History of Present Illness Chief Complaint: Abd Pain Narrative Narrative: Patient is a 33-year-old female that comes in the emergency department with acute on chronic abdominal pain. Patient was seen here 2 days ago for the same. Patient states she has a long history of UTIs, kidney infections as well as obstructing uropathy. Patient states that she has been running fevers the last 12 to 14 hours, as high as 101. This is similar to the story the patient had 2 days ago. Patient had blood work completed, CT scan of the abdomen pelvis which showed no acute process. Patient did receive pain medicine, nausea medicine and fluids and did feel better. Patient dates that the symptoms are continuing and she is here for reevaluation. [facility] <LITA Keenan - Last Filed: 04/01/24 16:10> [facility] Medical History Left renal stone Smoker Bilateral renal stones Wears glasses Wears dentures Alcohol use Marijuana use History of renal disease Fatty liver High cholesterol Easy bruising Restless legs Syncope Gastric reflux Environmental and seasonal allergies Leg cramps History of edema History of echocardiogram History of stress test Cardiology follow-up encounter Hypertension Peptic ulcer of stomach Migraine Chronic interstitial cystitis Endometriosis Bipolar disorder Anxiety Depression Back pain Conversion disorder History of cervical cancer Kidney stone Fibromyalgia Home Medications ?Medication ?Instructions ?Recorded ?Last Taken ?Type escitalopram oxalate 20 mg tablet 20 mg PO DAILY DEPRESSION 09/22/21 10/27/23 History (Lexapro) omeprazole 40 mg capsule,delayed 40 mg PO BID ACID REFLUX 09/22/21 10/27/23 History release quetiapine 50 mg tablet,extended 100 mg PO QHS MOOD 01/30/23 10/27/23 History release 24 hr pregabalin 75 mg capsule 75 mg PO QHS PAIN 09/15/23 10/27/23 History tizanidine 4 mg tablet 4 mg PO TID PRN MUSCLE SPASMS 10/28/23 10/27/23 History benzonatate 100 mg capsule 100 mg PO TID #30 caps 12/12/23 Unknown Rx propranolol 10 mg tablet 10 mg PO DAILY 12/12/23 Unknown History rosuvastatin 5 mg tablet 5 mg PO DAILY 12/12/23 Unknown History Allergy/AdvReac Type Severity Reaction Status Date / Time amitriptyline Allergy MUSCLE Verified 04/01/24 13:23 SPASMS Bleach (Sodium Hypochlorite) Allergy Hives Verified 04/01/24 13:23 codeine Allergy Hives Verified 04/01/24 13:23 ketorolac (From Toradol) Allergy Itching Verified 04/01/24 13:23 nitrofurantoin (From Allergy Anaphylaxis Verified 04/01/24 13:23 Macrodantin) doxycycline AdvReac Vomiting Verified 04/01/24 13:23 Family History Mother Hypertension Migraine Grandmother CVA (cerebral vascular accident) Grandfather Diabetes Father Myocardial infarction Surgical History History of cystoscopy S/P laparoscopic surgery History of hysterectomy Hx of cholecystectomy Social History household members: significant other Smoking Status: Current every day smoker tobacco type: e-cigarettes alcohol intake: current details: occasionally substance use type: does not use caffeine: Yes what type of physical activity do you participate in: walking frequency: 1-2 times per week seatbelt use: always do you feel safe at home: Yes additional social history: Single ROS <LITA Keenan - Last Filed: 04/01/24 16:10> ROS ED ROS Narrative Constitutional: Negative for fever, chills, weight loss, weakness Eyes: Negative for vision loss, vision change, double vision ENT: Negative for any sore throat, ear pain, congestion Cardiovascular: Negative for any chest pain, tightness, palpitations Respiratory: Negative for any cough, sputum production, hemoptysis, dyspnea, dyspnea on exertion, orthopnea Gastrointestinal: Negative for any constipation, blood in stool, blood in vomit. Positive for abdominal pain, nausea, vomiting, diarrhea : Negative for any urinary frequency, retention, blood in urine. Positive for dysuria Muscle skeletal: Negative for any neck pain, back pain Neurological: Negative for any headache, syncope, dizziness Skin: Negative for any rashes, itching, abrasions, lacerations Psychiatric: Negative for any depression, anxiety, stress, suicidal ideation, homicidal ideation Hematologic: Negative for any excessive bruising, easy bleeding EXAM <LITA Keenan - Last Filed: 04/01/24 16:10> Physical Exam Narrative Exam Narrative: Vital signs reviewed. Patient appears to be in no obvious distress. I took an oral tach myself it was 97.8. HEET: Head normocephalic atraumatic, TMs clear bilaterally. Posterior pharynx is clear, moist mucous membranes. Nares clear bilaterally. Neck: Supple with no lymphadenopathy or tenderness. No signs of meningismus. Cardiac: Regular rate and rhythm no murmurs gallops or rubs, equal peripheral pulses bilaterally. Respiratory: Lungs clear to auscultation bilaterally. No chest tenderness. Abdomen: Soft, nontender, nondistended. No abdominal bruit or pulsatile masses. No hepatosplenomegaly. Active bowel sounds in all quadrants, negative for any peritoneal signs. Extremities: No peripheral edema, no signs of gross trauma or deformity. Active full range of motion of all extremities. Neuro: Cranial nerves II through XII intact, no focal neurological deficits. Skin: Clean dry and intact with no rash, purpura, petechiae, vesicles or pustules. Backs/flank: No CVA tenderness, no midline spinal tenderness, no deformity. Psych: Normal mood and affect. No SI, HI or acute psychosis. Const Vital Signs: 04/01/24 13:23 04/01/24 13:23 04/01/24 15:22 Temperature 98.6 F 98.6 F Temperature Source Oral Oral Pulse Rate 76 78 62 Respiratory Rate 18 18 Blood Pressure 139/103 H 139/103 H 113/80 Blood Pressure Mean 115 115 91 Pulse Ox 100 100 Oxygen Delivery Method Room Air Room Air Positive well nourished and well developed General Appearance ED: well developed <Dr. Felton Gregory DO - Last Filed: 04/01/24 19:33> Physical Exam Const Vital Signs: 04/01/24 13:23 04/01/24 13:23 04/01/24 15:22 Temperature 98.6 F 98.6 F Temperature Source Oral Oral Pulse Rate 76 78 62 Respiratory Rate 18 18 Blood Pressure 139/103 H 139/103 H 113/80 Blood Pressure Mean 115 115 91 Pulse Ox 100 100 Oxygen Delivery Method Room Air Room Air MDM <LITA Keenan - Last Filed: 04/01/24 16:10> MDM Lab Data Labs: Laboratory Results - last 24 hr 04/01/24 04/01/24 04/01/24 14:22 14:25 15:21 WBC 5.6 RBC 4.31 Hgb 12.7 Hct 38.9 MCV 90.3 MCH 29.5 MCHC 32.6 RDW Std Deviation 46.2 H RDW Coeff of Romario 13.9 Plt Count 230 MPV 11.2 Immature Gran % (Auto) 0.500 Neut % (Auto) 62.7 Lymph % (Auto) 32.0 [place] % (Auto) 3.7 Eos % (Auto) 0.9 Baso % (Auto) 0.2 Absolute Neuts (auto) 3.5 Absolute Lymphs (auto) 1.80 Nucleated RBC % 0 Sodium 137 Potassium 3.6 Chloride 104 Carbon Dioxide 27.0 Anion Gap 6 BUN 9 Creatinine 0.83 Estim Creat Clear Calc 108.60 Est GFR (MDRD) Af Amer 101 Est GFR (MDRD) Non-Af 83 BUN/Creatinine Ratio 10.8 Glucose 111 H Calcium 9.7 Total Bilirubin 0.40 AST 96 H ALT 69 H Alkaline Phosphatase 135 H Total Protein 8.9 H Albumin 4.0 Globulin 4.9 H Albumin/Globulin Ratio 0.8 L Lipase 36 Urine Color Yellow Urine Clarity Sl. Cloudy Urine pH 6.5 Ur Specific [place] 1.010 Urine Protein Negative Urine Glucose (UA) Normal Urine Ketones Negative Urine Occult Blood Negative Urine Nitrite Negative Urine Bilirubin Negative Urine Urobilinogen Normal Ur Leukocyte Esterase Negative Urine RBC 0 SEEN Urine WBC 0 SEEN Ur Squamous Epith Cells 5-10 SEEN Urine Bacteria 0 SEEN Urine Mucus 0 SEEN Urine Opiates Screen NEGATIVE Urine Methadone Screen NEGATIVE Ur Barbiturates Screen NEGATIVE Ur Phencyclidine Scrn NEGATIVE Ur Amphetamines Screen NEGATIVE MDMA (Ecstasy) Screen NEGATIVE U Benzodiazepines Scrn NEGATIVE Urine Cocaine Screen NEGATIVE U Cannabinoids Screen NEGATIVE Ur Drug Screen Comment Treatment and Re-Evaluation :: Differential diagnosis includes however is not limited to: Acute on chronic abdominal pain, bowel obstruction, appendicitis, UTI, obstructing uropathy Patient is in no obvious distress vital signs are stable, patient appears nontoxic. Presenting to the emergency department with acute on chronic abdominal pain, back pain. I did look at the patient's past visits and the charts, patient usually complains of abdominal pain, flank pain. Patient states she does have history of kidney stones. Patient CT scans x 6 were reviewed, the patient has not had any obstructing uropathy found since September 2023. At this time, patient be treated conservatively. Patient does have history of being unable to take ibuprofen, Toradol. Patient states she does take Tylenol however does not help. Patient received some basic laboratory values CMP, CBC, lipase. Patient will receive a urinalysis. Patient did have a full hysterectomy. Treated for pain with IM Bentyl as well as IV Zofran and fluids. Patient will be reevaluated. Patient refused the IM Bentyl, patient's laboratory values show a normal CBC, negative for any leukocytosis or anemia. Chemistry shows slight transaminitis however it looks that over the last several months, this has been baseline and stable. Lipase was negative. Urinalysis was clean, negative for any bacteria, negative for any blood. At this time, patient was given 1 oxycodone here. Patient will need to follow-up outpatient. All questions were answered. Patient be diagnosed with abdominal pain, back pain uncertain etiology. I do believe this is acute on chronic pain. Patient stable for discharge. <Dr. Felton Gregory, DO - Last Filed: 04/01/24 19:33> [facility] Lab Data Attestation: I reviewed the patient's lab results. Labs: Laboratory Results - last 24 hr 04/01/24 04/01/24 04/01/24 14:22 14:25 15:21 WBC 5.6 RBC 4.31 Hgb 12.7 Hct 38.9 MCV 90.3 MCH 29.5 MCHC 32.6 RDW Std Deviation 46.2 H RDW Coeff of Romario 13.9 Plt Count 230 MPV 11.2 Immature Gran % (Auto) 0.500 Neut % (Auto) 62.7 Lymph % (Auto) 32.0 [place] % (Auto) 3.7 Eos % (Auto) 0.9 Baso % (Auto) 0.2 Absolute Neuts (auto) 3.5 Absolute Lymphs (auto) 1.80 Nucleated RBC % 0 Sodium 137 Potassium 3.6 Chloride 104 Carbon Dioxide 27.0 Anion Gap 6 BUN 9 Creatinine 0.83 Estim Creat Clear Calc 108.60 Est GFR (MDRD) Af Amer 101 Est GFR (MDRD) Non-Af 83 BUN/Creatinine Ratio 10.8 Glucose 111 H Calcium 9.7 Total Bilirubin 0.40 AST 96 H ALT 69 H Alkaline Phosphatase 135 H Total Protein 8.9 H Albumin 4.0 Globulin 4.9 H Albumin/Globulin Ratio 0.8 L Lipase 36 Urine Color Yellow Urine Clarity Sl. Cloudy Urine pH 6.5 Ur Specific [place] 1.010 Urine Protein Negative Urine Glucose (UA) Normal Urine Ketones Negative Urine Occult Blood Negative Urine Nitrite Negative Urine Bilirubin Negative Urine Urobilinogen Normal Ur Leukocyte Esterase Negative Urine RBC 0 SEEN Urine WBC 0 SEEN Ur Squamous Epith Cells 5-10 SEEN Urine Bacteria 0 SEEN Urine Mucus 0 SEEN Urine Opiates Screen NEGATIVE Urine Methadone Screen NEGATIVE Ur Barbiturates Screen NEGATIVE Ur Phencyclidine Scrn NEGATIVE Ur Amphetamines Screen NEGATIVE MDMA (Ecstasy) Screen NEGATIVE U Benzodiazepines Scrn NEGATIVE Urine Cocaine Screen NEGATIVE U Cannabinoids Screen NEGATIVE Ur Drug Screen Comment Treatment and Re-Evaluation :: Differential diagnosis includes however is not limited to: Acute on chronic abdominal pain, bowel obstruction, appendicitis, UTI, obstructing uropathy Patient is in no obvious distress vital signs are stable, patient appears nontoxic. Presenting to the emergency department with acute on chronic abdominal pain, back pain. I did look at the patient's past visits and the charts, patient usually complains of abdominal pain, flank pain. Patient states she does have history of kidney stones. Patient CT scans x 6 were reviewed, the patient has not had any obstructing uropathy found since September 2023. At this time, patient be treated conservatively. Patient does have history of being unable to take ibuprofen, Toradol. Patient states she does take Tylenol however does not help. Patient received some basic laboratory values CMP, CBC, lipase. Patient will receive a urinalysis. Patient did have a full hysterectomy. Treated for pain with IM Bentyl as well as IV Zofran and fluids. Patient will be reevaluated. Patient refused the IM Bentyl, patient's laboratory values show a normal CBC, negative for any leukocytosis or anemia. Chemistry shows slight transaminitis however it looks that over the last several months, this has been baseline and stable. Lipase was negative. Urinalysis was clean, negative for any bacteria, negative for any blood. At this time, patient was given 1 oxycodone here. Patient will need to follow-up outpatient. All questions were answered. Patient be diagnosed with abdominal pain, back pain uncertain etiology. I do believe this is acute on chronic pain. Patient stable for discharge. Attending note: Patient seen and evaluated with radiology technician. I perform my own [id number] evaluation. I agree with the plan of work-up. Recurrent right flank pain pain rating to her abdomen when she urinates. Symptoms for a week. She follows urology Dr. Lagunas. Cholecystectomy in the past. Seen 2 days ago for similar symptoms had a CT scan that was negative. She tried getting with her urologist today however unable to get appointment for next week. She tried getting with her PCP unable to therefore came to the ED. Reports subjective fevers. No cough. Exam alert nontoxic. Soft abdomen on exam. Patient's workup abdominal labs slight transaminitis similar to her previous. Normal lipase. Normal white count. Urine negative for infection. History of gastric ulcers therefore unable do NSAIDs. She declined Bentyl. Her toxicology screen also negative. She does with oxycodone x 1 in the ED. She is on pain management plan with her PCP currently on [place] stating this may change. She will discuss this with her PCP she will follow-up with urology as an outpatient. Do not feel reimaging is necessary as she had one 2 days ago. All questions were answered. Discharge Plan Triage Chief Complaint: Abd Pain Other Complaint: Nausea/Vomiting ED Midlevel Provider: Uzair Vasquez ED Provider: Felton Gregory Dx/Rx/DC Orders Clinical Impression: Abdominal pain, chronic, generalized, Back pain Instructions: Abdominal Pain, ED Flank Pain, Uncertain Cause Prescriptions: No Action rosuvastatin 5 mg tablet 5 mg PO DAILY Patient Comments: TAKE 1 TABLET BY MOUTH ONCE DAILY propranolol 10 mg tablet 10 mg PO DAILY Patient Comments: TAKE 1 TABLET BY MOUTH ONCE DAILY benzonatate 100 mg capsule 100 mg PO TID Qty: 30 0RF omeprazole 40 mg Capsule,Delayed Release(Dr/Ec) 40 mg PO BID escitalopram oxalate [Lexapro] 20 mg Tablet 20 mg PO DAILY quetiapine 50 mg tablet extended release 24 hr 100 mg PO QHS pregabalin 75 mg capsule 75 mg PO QHS Patient Comments: PT STATES THAT THEY USUALLY ONLY TAKE THIS AT BEDTIME BECAUSE IT MAKES THEM A ZOMBIE ( OF 10-28-23) tizanidine 4 mg tablet 4 mg PO TID PRN (Reason: MUSCLE SPASMS ) Patient Comments: PT STATES THAT THEY USUALLY TAKE ALL THREE TABLETS TOGETHER ONCE DAILY AT BEDTIME BECAUSE IT MAKES THEM DROWSY ( OF 10-28-23) Primary Care Provider: Dean Varghese Referrals: Dean Varghese DO [Primary Care Provider] - Activity Restrictions/Additional Instructions: Please follow-up with your specialist. Print Language: Kinyarwanda Disposition Disposition: Home, Self Care Discharge Date/Time: 04/01/24 16:32
[2024-04-01 14:26] LABS: Bacteria 0 SEEN /hpf (None Seen); Mucous, Urine 0 SEEN /hpf (<or=2+); Red Blood Cells-Urine 0 SEEN /hpf (0-5); White Blood Cells 0 SEEN /hpf (0-5)
[2024-04-01 14:37] LABS: Absolute Neutrophil Count 3.5 X10^3/uL (2.0-7.7); Basophil# 0.01 X10^3/uL; Basophil% 0.2 % (0-1); Eosinophil# 0.05 X10^3/uL; Eosinophils% 0.9 % (0-5); Hematocrit 38.9 % (37-47); Hemoglobin 12.7 g/dL (12.0-15.0); Mean Corp Hgb Conc 32.6 g/dL (32-36); Mean Corpuscular Hgb 29.5 pg (27.0-32.0); Mean Corpuscular Volume 90.3 fL (81-99); Mean Platelet Vol. 11.2 fl (6.2-12.0); Monocyte# 0.21 X10^3/uL; Monocyte% 3.7 % (0-10); NRBC Flagged by Analyzer 0 % (0-5); Neutrophil # 3.53 X10^3/uL (2.7-7.7); Neutrophil % 62.7 % (47-70); Platelet Count 230 K/mm3 (150-450); RBC Distribution Width CV 13.9 % (11.6-14.6); RBC Distribution Width SD 46.2 fl (35.1-43.9); Red Blood Count 4.31 M/mm3 (4.2-5.4); White Blood Count 5.6 K/mm3 (4.4-11.0)
[2024-04-01 14:38] LABS: Color, Urine Yellow (Yellow); Glucose, Dipstick Normal (Normal); Ketone-Dipstick Negative (Negative); Leukocyte Esterase-Dipstick Negative /ul (Negative); Nitrite-Dipstick Negative (Negative); Occult Blood-Urine Negative /ul (Negative); Protein-Dipstick Negative (Negative); Urine Bilirubin Dipstick Negative (Negative); Urine Clarity Sl. Cloudy (Clear); Urine Urobilinogen Normal (Normal); Urine pH 6.5 (5.0 - 8.0)
[2024-04-01] MEDS: 0.9% Normal Saline (1000mL) 1,000 ML 999 ML IV (14:40)
[2024-04-01] MEDS: Ondansetron 4 MG/2 ML Vial IV (14:40)
[2024-04-01 14:46] LABS: Squamous Epithelial Cells - UA 5-10 SEEN /hpf (5-10)
[2024-04-01 15:01] LABS: ALB/GLOB Ratio 0.8 RATIO (0.9-2.4); AST(SGOT) 96 U/L (15-37); Alanine Aminotransfer ALT/SGPT 69 U/L (13-56); Alkaline Phosphatase 135 U/L (45-117); Anion Gap 6 (5-15); BUN 9 mg/dL (7-18); BUN/Creat Ratio 10.8 RATIO (10-20); Calcium,Total 9.7 mg/dL (8.5-10.1); Chloride 104 mmol/L (98-107); Creatinine, Serum 0.83 mg/dL (0.55-1.02); EST Glomerular Filtration Rate 83 mL/min (>60); Est Glom Filt Rate - Afr Amer 101 mL/min (>60); Globulin 4.9 g/dL (2.2-4.2); Glucose 111 mg/dL (74-106); Lipase 36 U/L (13-75); Potassium 3.6 mmol/L (3.5-5.1); Protein, Total 8.9 g/dL (6.4-8.2); Sodium Level 137 mmol/L (136-145)
[2024-04-01 15:22] VITALS: BP 113/80; PULSE 62
[2024-04-01 15:51] LABS: Amphetamine Urine VISTA NEGATIVE (<1000 ng/mL); Barbiturate Urine VISTA NEGATIVE (< 200 ng/mL); Benzodiazepine Urine VISTA NEGATIVE (< 200 ng/mL); Cocaine Urine VISTA NEGATIVE (< 300 ng/mL); Ecstacy Urine VISTA NEGATIVE (< 500 ng/mL); Methadone Urine VISTA NEGATIVE (< 300 ng/mL); PCP Urine VISTA NEGATIVE (< 25 ng/mL); THC Urine VISTA NEGATIVE (< 50 ng/mL); Vista UDS pH Range 4
[2024-04-01] MEDS: oxyCODONE 5 MG Tablet PO (16:27)
== END 2024-04-01 16:32 | disposition home or self-care (01) ==
PROVIDERS: Nurse Practitioner; Emergency Provider Emergency Medicine; Visit Provider Emergency Medicine
DX: R10.84 Generalized abdominal pain (principal); F31.9 Bipolar disorder, unspecified; M54.9 Dorsalgia, unspecified; R11.2 Nausea with vomiting, unspecified; E78.00 Pure hypercholesterolemia, unspecified; I10 Essential (primary) hypertension; F41.9 Anxiety disorder, unspecified; K21.9 Gastro-esophageal reflux disease without esophagitis; Z79.899 Other long term (current) drug therapy; Z90.710 Acquired absence of both cervix and uterus; Z90.49 Acquired absence of other specified parts of digestive tract; F17.290 Nicotine dependence, other tobacco product, uncomplicated; G89.29 Other chronic pain
CPT/HCPCS: 80053; 80307; 81001; 83690; 85025; 96361; 96374; 99283; J7030; A4216; J2405

== ENCOUNTER 2024-05-30 11:15 | Emergency (ER) | payer SELFPAY ==
[2024-05-30 11:16] VITALS: BP 150/100; PULSE 117; RESP 18; TEMP 36.3; O2SAT 97; BMI 35.4
[2024-05-30 11:39] LABS: Bacteria 0 SEEN /hpf (None Seen); Mucous, Urine 0 SEEN /hpf (<or=2+); Red Blood Cells-Urine 0 SEEN /hpf (0-5); White Blood Cells 0 SEEN /hpf (0-5)
[2024-05-30 11:42] LABS: Color, Urine Yellow (Yellow); Glucose, Dipstick Normal (Normal); Ketone-Dipstick Negative (Negative); Leukocyte Esterase-Dipstick Negative /ul (Negative); Nitrite-Dipstick Negative (Negative); Occult Blood-Urine Negative /ul (Negative); Protein-Dipstick Negative (Negative); Urine Bilirubin Dipstick Negative (Negative); Urine Clarity Sl. Cloudy (Clear); Urine Urobilinogen Normal (Normal)
[2024-05-30 11:49] LABS: Squamous Epithelial Cells - UA 5-10 SEEN /hpf (5-10)
--- NOTE | 2024-05-30 12:33 | CT_ITS ---
STUDY: CT ABDOMEN AND PELVIS WITHOUT CONTRAST REASON FOR EXAM: Female, 33 years old. Bilateral flank pain. RADIATION DOSAGE (If Supplied By Facility): CTDIvol = ( 20.84 ) mGy, DLP = ( 1119.30 ) mGycm TECHNIQUE: Transaxial images were obtained from the dome of the diaphragm to the symphysis pubis without oral contrast, and without intravenous contrast. Sagittal and coronal images were reconstructed. Individualized dose optimization techniques were used for this CT. COMPARISON: Comparison is made with prior study dated March 30, 2024. FINDINGS: The visualized lung bases are unremarkable. The visualized portions of the heart are within normal limits. There is decreased attenuation of the liver consistent with steatosis. The patient is status post cholecystectomy. Normal spleen. Normal pancreas. Normal bilateral adrenal glands. Normal right kidney. Normal left kidney. Normal visualized stomach. Normal small intestine. Normal colon. The appendix is visualized and appears normal. Normal abdominal aorta. Normal inferior vena cava. Normal retroperitoneum. Normal urinary bladder. There is absence of the uterus consistent with a prior hysterectomy. Normal abdominal wall. Normal osseous structures. CT/Abdomen/Pelvis without Cont IMPRESSION: Fatty infiltration of the liver. Status post cholecystectomy and hysterectomy. Electronically Signed: Luis Blanco MD at 13:56 EDT ,
--- NOTE | 2024-05-30 12:34 | ED.VIS.BACK ---
HPI History of Present Illness Chief Complaint: Back Detail of Chief Complaint: Bilateral flank pain. Informant: patient Onset/Context/Timing Onset: Days Context: Gradual Onset Timing: Continuous Quality: Dull and Aching Current Severity: Mild Maximum Severity: Mild Worsened by: improves with Nothing Relieved by: Nothing Associated Symptoms Associated Symptoms: Negative for Numbness, Tingling, Abdominal Pain, Dysuria, Urinary Retention or Urinary Incontinence Narrative Narrative: 33-year-old female history of kidney stones, peptic ulcer disease, UTIs, diabetes and prior hysterectomy due to cervical cancer. Complaining of bilateral flank pain in the last several days associated nausea vomiting. No fever. No dysuria. No weakness. Prior similar symptoms: Yes Recent Illness/Hospitalization: No PFSH PFS Medical History Avulsion fracture of lateral malleolus of right fibula Left renal stone Smoker Bilateral renal stones Wears glasses Wears dentures Alcohol use Marijuana use History of renal disease Fatty liver High cholesterol Easy bruising Restless legs Syncope Gastric reflux Environmental and seasonal allergies Leg cramps History of edema History of echocardiogram History of stress test Cardiology follow-up encounter Hypertension Peptic ulcer of stomach Migraine Chronic interstitial cystitis Endometriosis Bipolar disorder Anxiety Depression Back pain Conversion disorder History of cervical cancer Kidney stone Fibromyalgia Home Medications ?Medication ?Instructions ?Recorded ?Last Taken ?Type escitalopram oxalate 20 mg tablet 20 mg PO DAILY DEPRESSION 09/22/21 10/27/23 History (Lexapro) omeprazole 40 mg capsule,delayed 40 mg PO BID ACID REFLUX 09/22/21 10/27/23 History release quetiapine 50 mg tablet,extended 100 mg PO QHS MOOD 01/30/23 10/27/23 History release 24 hr tizanidine 4 mg tablet 4 mg PO TID PRN MUSCLE SPASMS 10/28/23 10/27/23 History propranolol 10 mg tablet 10 mg PO DAILY 12/12/23 Unknown History rosuvastatin 5 mg tablet 5 mg PO DAILY 12/12/23 Unknown History atogepant 60 mg tablet (Qulipta) 60 mg PO DAILY 04/21/24 Unknown History rimegepant 75 mg disintegrating 75 mg PO ONCE PRN 04/21/24 Unknown History tablet (Nurtec ODT) Allergy/AdvReac Type Severity Reaction Status Date / Time amitriptyline Allergy MUSCLE Verified 05/30/24 11:16 SPASMS Bleach (Sodium Hypochlorite) Allergy Hives Verified 05/30/24 11:16 codeine Allergy Hives Verified 05/30/24 11:16 ketorolac (From Toradol) Allergy Itching Verified 05/30/24 11:16 nitrofurantoin (From Allergy Anaphylaxis Verified 05/30/24 11:16 Macrodantin) NSAIDS (Non-Steroidal Allergy Other Verified 05/30/24 11:16 Anti-Inflamma doxycycline AdvReac Vomiting Verified 05/30/24 11:16 Family History Mother Hypertension Migraine Grandmother CVA (cerebral vascular accident) Grandfather Diabetes Father Myocardial infarction Surgical History History of cystoscopy S/P laparoscopic surgery History of hysterectomy Hx of cholecystectomy Social History household members: significant other Smoking Status: Current every day smoker tobacco type: e-cigarettes alcohol intake: current details: occasionally substance use type: does not use caffeine: Yes what type of physical activity do you participate in: walking frequency: 1-2 times per week seatbelt use: always do you feel safe at home: Yes additional social history: Single ROS ROS ED ROS Narrative Bilateral flank pain. Nausea vomiting. Constitutional Constitutional ED: Denies chills or fever(s) Eyes Eyes: Denies blurry vision ENT ENT ED: Denies ear pain Cardiovascular Cardiovascular: Denies chest pain Respiratory/Chest Respiratory/Chest: Denies dyspnea Gastrointestinal Gastrointestinal: Denies abdominal pain Genitourinary Genitourinary ED: Denies dysuria or hematuria Musculoskeletal Musculoskeletal: Reports back pain; Denies arthralgias, myalgias or neck pain Integumentary Denies abscess or Abrasions Neurologic Neurologic: Denies headache(s) Psychiatric Psychiatric: Denies anxiety or depression Endocrine Endocrinology: Denies cold intolerance Hematologic/Lymphatic Hematologic/Lymphatic: Denies easy bleeding Allergic/Immunologic Allergic/Immunologic ED: Denies mouth swelling EXAM Physical Exam Narrative Exam Narrative: 33-year-old female vital signs stable afebrile. Does not look septic toxic. No distress. H EENT exam unremarkable. Neck nontender. Lungs clear to auscultation bilaterally. Heart regular rhythm no murmur rate about 110. Abdomen is soft, nontender, nondistended, normal bowel sounds without peritoneal signs. Moving all 4 extremities. 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 Dorsi plantarflexion intact. Both lower extremities have normal dorsi plantarflexion. Normal motor strength and sensation. No cauda equina. Back there is no spine tenderness. No signs of trauma. Neurologically she is awake and alert. No focal motor or sensory deficits. Const Vital Signs: 05/30/24 11:16 Temperature 97.3 F L Temperature Source Temporal Pulse Rate 117 H Respiratory Rate 18 Blood Pressure 150/100 H Blood Pressure Mean 116 Pulse Ox 97 Oxygen Delivery Method Room Air Positive well nourished, well developed and obese; Negative for cachectic, contractures or unkempt General Appearance ED: well developed and NAD; Negative for unkempt, cachectic, contractures or pallor Nutritional Appearance: obese; Negative for cachectic HEENT Reports moist mucous membranes; Denies dry mucous membranes Negative for trauma or tenderness Mouth ED: No dry mucous membranes Mouth: No dry mucous membranes Eyes PERRL and EOMs intact bilaterally General Eye ED: Negative for pale conjunctiva or scleral icterus Neck no lymphadenopathy, supple and no JVD General: Negative for tenderness Chest Wall Chest: Negative for other Resp normal respiratory effort and clear to auscultation bilaterally Effort and Inspection: Negative for pain with movement Auscultation: Negative for rales, rhonchi, wheezes or diminished lung sounds Cardio regular rhythm, S1 normal heart sound, S2 normal heart sound and no murmurs; Negative for regular rate Rate: tachycardic GI normal to inspection, nondistended, normoactive bowel sounds, soft to palpation, non-tender, non-distended and no masses Inspection: Negative for abdominal distention Palpation: Negative for tender, guarding or rebound tenderness present Back/Spine normal to inspection and no thoracic nor lumbar tenderness General Back: Negative for CVA tenderness Cervical Spine: Negative for cervical spine tenderness Thoracic Spine / Upper Back: Negative for paraspinal muscle tenderness Extremity normal to inspection and no clubbing, cyanosis or edema General Extremety ED: Negative for edema or tenderness General Extremity: Negative for edema Neuro oriented x3 and no sensory deficits noted Sensorium / Orientation: alert; Negative for confused, lethargic or stuporous Motor Exam: strength 5/5 throughout Psych mental status grossly normal Appearance: Negative for unkempt Attitude: No agitated and No other Mood & Affect: Negative for depressed, sad or tearful Skin no rashes or lesions noted and no wounds General Skin Exam: Negative for jaundice or pallor Lesions: No lesion noted Rashes: No rashes noted Trauma: Negative for abrasion or puncture Wounds: Negative for wounds noted MDM MDM MDM Narrative Medical decision making narrative: 33-year-old female with bilateral back pain. Rule out UTI versus stone versus other etiologies. May be musculoskeletal. It is not reproducible. To be treated before morphine and Zofran. Repeat exam patient is doing well at 1:[address] with read by the radiologist. Currently her exam is benign. She is much improved after the medication. Repeat exam at 2:08 PM patient doing well. CAT scan showed no acute process. No acute stone as read by the radiologist. Reviewed by me and I agree. Patient be discharged home. Motrin and Tylenol for pain. History & Record Review Discussion w/independent historian: Patient Additional record(s) reviewed:: Prior inpatient record, Prior outpatient record, Prior ED visit and Prior labs Lab Data Attestation: I reviewed the patient's lab results. Lab results narrative: CBC normal. White count of 7. H&H 12 and 37. Platelets 196. Electrolytes show gap of 7. BUN and creatinine of 5 and 0.7. Glucose 110. Liver enzymes unremarkable. UA is negative. No white or red cells. No bacteria or nitrates. Labs: Laboratory Results - last 24 hr 05/30/24 05/30/24 11:30 12:56 WBC 7.5 RBC 4.19 L Hgb 12.4 Hct 37.3 MCV 89.0 MCH 29.6 MCHC 33.2 RDW Std Deviation 42.6 RDW Coeff of Romario 13.1 Plt Count 196 MPV 10.9 Immature Gran % (Auto) 0.700 Neut % (Auto) 70.8 H Lymph % (Auto) 22.7 [place] % (Auto) 4.2 Eos % (Auto) 1.3 Baso % (Auto) 0.3 Absolute Neuts (auto) 5.3 Absolute Lymphs (auto) 1.71 Nucleated RBC % 0 Sodium 142 Potassium 3.5 Chloride 110 H Carbon Dioxide 25.0 Anion Gap 7 BUN 5 L Creatinine 0.71 Estim Creat Clear Calc 120.50 Est GFR (MDRD) Af Amer 121 Est GFR (MDRD) Non-Af 100 BUN/Creatinine Ratio 7.1 L Glucose 110 H Calcium 8.8 Total Bilirubin 0.20 AST 33 ALT 43 Alkaline Phosphatase 135 H Total Protein 7.2 Albumin 3.1 L Globulin 4.1 Albumin/Globulin Ratio 0.8 L Urine Color Yellow Urine Clarity Sl. Cloudy Urine pH 7.0 Ur Specific [place] 1.010 Urine Protein Negative Urine Glucose (UA) Normal Urine Ketones Negative Urine Occult Blood Negative Urine Nitrite Negative Urine Bilirubin Negative Urine Urobilinogen Normal Ur Leukocyte Esterase Negative Urine RBC 0 SEEN Urine WBC 0 SEEN Ur Squamous Epith Cells 5-10 SEEN Urine Bacteria 0 SEEN Urine Mucus 0 SEEN Radiography Diagnostic Testing: Clinical Impression(s) from Imaging Studies Abdomen/Pelvis CT 05/30/24 12:33 IMPRESSION: Fatty infiltration of the liver. Status post cholecystectomy and hysterectomy. Electronically Signed: Luis Blanco MD at 13:56 EDT , Discharge Plan Triage Chief Complaint: Back ED Provider: Satya Page Dx/Rx/DC Orders Clinical Impression: Bilateral flank pain, History of kidney stones, History of diabetes mellitus Instructions: ED Flank Pain, Uncertain Cause Prescriptions: No Action rosuvastatin 5 mg tablet 5 mg PO DAILY Patient Comments: TAKE 1 TABLET BY MOUTH ONCE DAILY propranolol 10 mg tablet 10 mg PO DAILY Patient Comments: TAKE 1 TABLET BY MOUTH ONCE DAILY Nurtec ODT 75 mg tablet,disintegrating 75 mg PO ONCE PRN Rx Instructions: as a single dose Qulipta 60 mg tablet 60 mg PO DAILY omeprazole 40 mg Capsule,Delayed Release(Dr/Ec) 40 mg PO BID escitalopram oxalate [Lexapro] 20 mg Tablet 20 mg PO DAILY quetiapine 50 mg tablet extended release 24 hr 100 mg PO QHS tizanidine 4 mg tablet 4 mg PO TID PRN (Reason: MUSCLE SPASMS ) Patient Comments: PT STATES THAT THEY USUALLY TAKE ALL THREE TABLETS TOGETHER ONCE DAILY AT BEDTIME BECAUSE IT MAKES THEM DROWSY ( OF 10-28-23) Primary Care Provider: Dean Varghese Referrals: Dean Varghese DO [Primary Care Provider] - 1 Week if not improving Activity Restrictions/Additional Instructions: Your labs and urine look good. The CAT scan showed no acute kidney stones. Motrin and/or Tylenol for pain. Follow-up with your doctor as needed. Print Language: Belarusian Disposition Disposition: Home, Self Care
[2024-05-30] MEDS: Ondansetron 4 MG/2 ML Vial IV (13:04)
[2024-05-30] MEDS: Morphine 4 MG/ML Syringe IV (13:04)
[2024-05-30 13:09] LABS: Absolute Lymphocyte Count 1.71 X10^3/uL (0.83-4.51); Absolute Neutrophil Count 5.3 X10^3/uL (2.0-7.7); Basophil# 0.02 X10^3/uL; Basophil% 0.3 % (0-1); Eosinophils% 1.3 % (0-5); Hematocrit 37.3 % (37-47); Hemoglobin 12.4 g/dL (12.0-15.0); Lymphocyte # 1.71 X10^3/ul (0.83-4.51); Lymphocyte % 22.7 % (19-41); Mean Corp Hgb Conc 33.2 g/dL (32-36); Mean Corpuscular Hgb 29.6 pg (27.0-32.0); Mean Platelet Vol. 10.9 fl (6.2-12.0); Monocyte# 0.32 X10^3/uL; Monocyte% 4.2 % (0-10); NRBC Flagged by Analyzer 0 % (0-5); Neutrophil # 5.33 X10^3/uL (2.7-7.7); Neutrophil % 70.8 % (47-70); Platelet Count 196 K/mm3 (150-450); RBC Distribution Width CV 13.1 % (11.6-14.6); RBC Distribution Width SD 42.6 fl (35.1-43.9); Red Blood Count 4.19 M/mm3 (4.2-5.4); White Blood Count 7.5 K/mm3 (4.4-11.0)
[2024-05-30 13:20] LABS: ALB/GLOB Ratio 0.8 RATIO (0.9-2.4); AST(SGOT) 33 U/L (15-37); Alanine Aminotransfer ALT/SGPT 43 U/L (13-56); Albumin, Serum 3.1 g/dL (3.2-5.0); Alkaline Phosphatase 135 U/L (45-117); Anion Gap 7 (5-15); BUN 5 mg/dL (7-18); BUN/Creat Ratio 7.1 RATIO (10-20); Calcium,Total 8.8 mg/dL (8.5-10.1); Chloride 110 mmol/L (98-107); Creatinine, Serum 0.71 mg/dL (0.55-1.02); EST Glomerular Filtration Rate 100 mL/min (>60); Est Glom Filt Rate - Afr Amer 121 mL/min (>60); Globulin 4.1 g/dL (2.2-4.2); Glucose 110 mg/dL (74-106); Potassium 3.5 mmol/L (3.5-5.1); Protein, Total 7.2 g/dL (6.4-8.2); Sodium Level 142 mmol/L (136-145)
== END 2024-05-30 14:18 | disposition home or self-care (01) ==
PROVIDERS: Emergency Provider Emergency Medicine; Visit Provider Emergency Medicine
DX: R10.9 Unspecified abdominal pain (principal); E11.9 Type 2 diabetes mellitus without complications; M54.9 Dorsalgia, unspecified; R11.2 Nausea with vomiting, unspecified; I10 Essential (primary) hypertension; E78.00 Pure hypercholesterolemia, unspecified; F17.290 Nicotine dependence, other tobacco product, uncomplicated; Z87.11 Personal history of peptic ulcer disease; Z85.41 Personal history of malignant neoplasm of cervix uteri; Z90.710 Acquired absence of both cervix and uterus
CPT/HCPCS: 74176; 80053; 81001; 85025; 96374; 96375; 99283; J7030; A4216; J2405

== ENCOUNTER 2024-06-17 04:00 | Emergency (ER) | payer SELFPAY ==
[2024-06-17 04:05] VITALS: BP 132/108; PULSE 83; RESP 18; TEMP 36.7; O2SAT 95; BMI 39.5
[2024-06-17] MEDS: Ondansetron 4 MG/2 ML Vial IV (04:56)
[2024-06-17] MEDS: 0.9% Normal Saline (1000mL) 1,000 ML 1000 ML IV (04:56)
--- NOTE | 2024-06-17 05:03 | EX.ED.DYSGE1 ---
HPI History of Present Illness Chief Complaint: General Illness Informant: patient and spouse/S.O. Narrative Narrative: 34-year-old female presenting to the emergency room chief complaint of nausea vomiting. Patient states over the past couple days she has had nausea vomiting. No diarrhea. She states that she has been unable to keep her medicines down. She has a history of bipolar disorder, conversion disorder. She states that the right side of her body is hypersensitive and painful. She states the left side of her body is numb and tingling. She denies any diarrhea. She states that she had a fever a week ago. She denies any known sick contacts. She notes upper abdominal discomfort. She denies any rashes. She does have a history of [place]. No history of pancreatitis [facility] Medical History Avulsion fracture of lateral malleolus of right fibula Left renal stone Smoker Bilateral renal stones Wears glasses Wears dentures Alcohol use Marijuana use History of renal disease Fatty liver High cholesterol Easy bruising Restless legs Syncope Gastric reflux Environmental and seasonal allergies Leg cramps History of edema History of echocardiogram History of stress test Cardiology follow-up encounter Hypertension Peptic ulcer of stomach Migraine Chronic interstitial cystitis Endometriosis Bipolar disorder Anxiety Depression Back pain Conversion disorder History of cervical cancer Kidney stone Fibromyalgia Home Medications ?Medication ?Instructions ?Recorded ?Last Taken ?Type escitalopram oxalate 20 mg tablet 20 mg PO DAILY DEPRESSION 09/22/21 10/27/23 History (Lexapro) omeprazole 40 mg capsule,delayed 40 mg PO BID ACID REFLUX 09/22/21 10/27/23 History release quetiapine 50 mg tablet,extended 100 mg PO QHS MOOD 01/30/23 10/27/23 History release 24 hr tizanidine 4 mg tablet 4 mg PO TID PRN MUSCLE SPASMS 10/28/23 10/27/23 History propranolol 10 mg tablet 10 mg PO DAILY 12/12/23 Unknown History rosuvastatin 5 mg tablet 5 mg PO DAILY 12/12/23 Unknown History atogepant 60 mg tablet (Qulipta) 60 mg PO DAILY 04/21/24 Unknown History rimegepant 75 mg disintegrating 75 mg PO ONCE PRN migraine headache 04/21/24 Unknown History tablet (Nurtec ODT) Allergy/AdvReac Type Severity Reaction Status Date / Time amitriptyline Allergy MUSCLE Verified 06/17/24 04:09 SPASMS Bleach (Sodium Hypochlorite) Allergy Hives Verified 06/17/24 04:09 codeine Allergy Hives Verified 06/17/24 04:09 ketorolac (From Toradol) Allergy Itching Verified 06/17/24 04:09 nitrofurantoin (From Allergy Anaphylaxis Verified 06/17/24 04:09 Macrodantin) NSAIDS (Non-Steroidal Allergy Other Verified 06/17/24 04:09 Anti-Inflamma doxycycline AdvReac Vomiting Verified 06/17/24 04:09 Family History Mother Hypertension Migraine Grandmother CVA (cerebral vascular accident) Grandfather Diabetes Father Myocardial infarction Surgical History History of cystoscopy S/P laparoscopic surgery History of hysterectomy Hx of cholecystectomy Social History household members: significant other Smoking Status: Current every day smoker tobacco type: e-cigarettes alcohol intake: current details: occasionally substance use type: does not use caffeine: Yes what type of physical activity do you participate in: walking frequency: 1-2 times per week seatbelt use: always do you feel safe at home: Yes additional social history: Single ROS ROS ED Constitutional Constitutional ED: Reports fever(s); Denies chills or weight loss Eyes Eyes: Denies change in vision or diplopia ENT ENT ED: Denies ear pain, rhinorrhea or sore throat Cardiovascular Cardiovascular: Denies chest pain, orthopnea, palpitations or racing heartbeat Respiratory/Chest Respiratory/Chest: Denies cough, dyspnea or orthopnea Gastrointestinal Gastrointestinal: Reports abdominal pain, nausea and vomiting; Denies diarrhea Genitourinary Genitourinary ED: Denies dysuria, hematuria or urinary frequency Musculoskeletal Musculoskeletal: Denies arthralgias or myalgias Integumentary Denies abscess or rash Neurologic Neurologic: Reports paresthesias; Denies headache(s) or weakness Psychiatric Psychiatric: Denies anxiety, depression, suicidal ideation or suicidal thoughts Endocrine Endocrinology: Denies polydipsia, polyphagia or polyuria Allergic/Immunologic Allergic/Immunologic ED: Denies mouth swelling, tongue swelling or urticaria EXAM Physical Exam Const Vital Signs: 06/17/24 04:05 Temperature 98.0 F Temperature Source Temporal Pulse Rate 83 Respiratory Rate 18 Blood Pressure 132/108 H Blood Pressure Mean 116 Pulse Ox 95 Oxygen Delivery Method Room Air Positive well nourished and well developed General Appearance ED: well developed HEENT Reports normocephalic, head/scalp atraumatic and moist mucous membranes Eyes PERRL and EOMs intact bilaterally Neck no lymphadenopathy, supple and no JVD Resp normal respiratory effort and clear to auscultation bilaterally Cardio regular rate, regular rhythm and no murmurs GI no masses; Negative for hepatosplenomegaly Inspection: Negative for abdominal distention Auscultation: normoactive bowel sounds Palpation: soft and tender epigastric; Negative for guarding or rebound tenderness present Back/Spine no CVA tenderness and normal ROM Extremity normal to inspection General Extremety ED: Negative for edema General Extremity: Negative for edema Neuro oriented x3 and CN's II-XII intact bilaterally Sensorium / Orientation: alert Motor Exam: strength 5/5 throughout Psych mental status grossly normal Mood & Affect: Negative for depressed or tearful Skin no rashes or lesions noted and no wounds MDM MDM MDM Narrative Medical decision making narrative: Differential diagnosis includes conversion disorder medication withdrawal and dehydration and electrolyte abnormalities. IV established and the patient received Zofran and fluids. White count 8.0 hemoglobin of 13.1 and platelet count of 234. BMP shows a glucose of 137 LFTs with an alkaline phosphatase of 131 AST of 48 test is negative lipase is 63. Patient clinically appears well-hydrated. She has normal vital signs. She has been able to ambulate to the bathroom. Clinically I think that the patient's bipolar and conversion disorder is coming into play especially in light of her fighting her medications inside of her. She is puzzled by the fact that she has not been hospitalized today. Patient both clinically and laboratory huggins does not have dehydration or significant electrolyte abnormalities. She has nausea medication at home. She tells me she has Zofran and Phenergan suppositories. I do not believe the patient's right sided hyperesthesias and left-sided tingling/numbness is central in nature (structural brain/spinal cord) in nature. I encouraged the patient to take her medications even if they are 1 at a time. I did ask her to follow-up with her psychiatrist and primary care doctor History & Record Review Discussion w/independent historian: Patient and Significant other Lab Data Attestation: I reviewed the patient's lab results. Labs: Laboratory Results - last 24 hr 06/17/24 04:51 WBC 8.0 RBC 4.50 Hgb 13.1 Hct 40.1 MCV 89.1 MCH 29.1 MCHC 32.7 RDW Std Deviation 43.8 RDW Coeff of Romario 13.5 Plt Count 234 MPV 10.5 Immature Gran % (Auto) 0.800 Neut % (Auto) 56.6 Lymph % (Auto) 36.4 [place] % (Auto) 5.5 Eos % (Auto) 0.4 Baso % (Auto) 0.3 Absolute Neuts (auto) 4.5 Absolute Lymphs (auto) 2.91 Nucleated RBC % 0 Sodium 139 Potassium 3.7 Chloride 105 Carbon Dioxide 27.0 Anion Gap 7 BUN 12 Creatinine 0.84 Estim Creat Clear Calc 107.14 Est GFR (MDRD) Af Amer 100 Est GFR (MDRD) Non-Af 83 BUN/Creatinine Ratio 14.3 Glucose 137 H Calcium 9.3 Total Bilirubin 0.30 Direct Bilirubin 0.09 AST 40 H ALT 33 Alkaline Phosphatase 131 H Total Protein 8.0 Albumin 3.5 Globulin 4.5 H Lipase 63 Serum , Qual NEGATIVE Discharge Plan Triage Chief Complaint: General Illness ED Provider: Awais La Dx/Rx/DC Orders Clinical Impression: Vomiting, Hyperesthesia, Paresthesia Instructions: ED Vomiting (Adult), ED Paraesthesias Prescriptions: No Action rosuvastatin 5 mg tablet 5 mg PO DAILY Patient Comments: TAKE 1 TABLET BY MOUTH ONCE DAILY propranolol 10 mg tablet 10 mg PO DAILY Patient Comments: TAKE 1 TABLET BY MOUTH ONCE DAILY Nurtec ODT 75 mg tablet,disintegrating 75 mg PO ONCE PRN (Reason: migraine headache) Rx Instructions: as a single dose Qulipta 60 mg tablet 60 mg PO DAILY omeprazole 40 mg Capsule,Delayed Release(Dr/Ec) 40 mg PO BID escitalopram oxalate [Lexapro] 20 mg Tablet 20 mg PO DAILY quetiapine 50 mg tablet extended release 24 hr 100 mg PO QHS tizanidine 4 mg tablet 4 mg PO TID PRN (Reason: MUSCLE SPASMS ) Patient Comments: PT STATES THAT THEY USUALLY TAKE ALL THREE TABLETS TOGETHER ONCE DAILY AT BEDTIME BECAUSE IT MAKES THEM DROWSY ( OF 10-28-23) Primary Care Provider: Dean Varghese Referrals: Dean Varghese, [Primary Care Provider] - As soon as possible Print Language: Maori Disposition Disposition: Home, Self Care
[2024-06-17 05:07] LABS: Absolute Lymphocyte Count 2.91 X10^3/uL (0.83-4.51); Absolute Neutrophil Count 4.5 X10^3/uL (2.0-7.7); Basophil# 0.02 X10^3/uL; Basophil% 0.3 % (0-1); Eosinophil# 0.03 X10^3/uL; Eosinophils% 0.4 % (0-5); Hematocrit 40.1 % (37-47); Hemoglobin 13.1 g/dL (12.0-15.0); Lymphocyte # 2.91 X10^3/ul (0.83-4.51); Lymphocyte % 36.4 % (19-41); Mean Corp Hgb Conc 32.7 g/dL (32-36); Mean Corpuscular Hgb 29.1 pg (27.0-32.0); Mean Corpuscular Volume 89.1 fL (81-99); Mean Platelet Vol. 10.5 fl (6.2-12.0); Monocyte# 0.44 X10^3/uL; Monocyte% 5.5 % (0-10); NRBC Flagged by Analyzer 0 % (0-5); Neutrophil # 4.53 X10^3/uL (2.7-7.7); Neutrophil % 56.6 % (47-70); Platelet Count 234 K/mm3 (150-450); RBC Distribution Width CV 13.5 % (11.6-14.6); RBC Distribution Width SD 43.8 fl (35.1-43.9)
[2024-06-17 05:18] LABS: Internal QC Validated? YES +Cl - CLEAR BKGD; Pregnancy, Serum, hCG Quali. NEGATIVE Negative
[2024-06-17 05:24] LABS: AST(SGOT) 40 U/L (15-37); Alanine Aminotransfer ALT/SGPT 33 U/L (13-56); Albumin, Serum 3.5 g/dL (3.2-5.0); Alkaline Phosphatase 131 U/L (45-117); Anion Gap 7 (5-15); BUN 12 mg/dL (7-18); BUN/Creat Ratio 14.3 RATIO (10-20); Bilirubin, Direct 0.09 mg/dL (0.00-0.30); Calcium,Total 9.3 mg/dL (8.5-10.1); Chloride 105 mmol/L (98-107); Creatinine, Serum 0.84 mg/dL (0.55-1.02); EST Glomerular Filtration Rate 83 mL/min (>60); Est Glom Filt Rate - Afr Amer 100 mL/min (>60); Estimated Creatinine Clearance 107.14 ml/min; Globulin 4.5 g/dL (2.2-4.2); Glucose 137 mg/dL (74-106); Lipase 63 U/L (13-75); Potassium 3.7 mmol/L (3.5-5.1); Sodium Level 139 mmol/L (136-145)
--- NOTE | 2024-06-17 07:15 | ED.RN ---
pt not happy with care, encouraged pt to follow-up with pcp and psychiatrist.
== END 2024-06-17 07:15 | disposition home or self-care (01) ==
PROVIDERS: Emergency Provider Emergency Medicine; Visit Provider Emergency Medicine
DX: R11.10 Vomiting, unspecified (principal); F31.9 Bipolar disorder, unspecified; R20.3 Hyperesthesia; R20.2 Paresthesia of skin; F17.290 Nicotine dependence, other tobacco product, uncomplicated; E78.00 Pure hypercholesterolemia, unspecified; Z79.899 Other long term (current) drug therapy
CPT/HCPCS: 80048; 80076; 83690; 84703; 85025; 96374; 99282; J7050; A4216; J2405

== ENCOUNTER 2024-06-20 15:46 | Emergency (ER) | payer SELFPAY ==
[2024-06-20 15:48] VITALS: BP 142/98; PULSE 79; RESP 18; TEMP 36; O2SAT 100; BMI 39.9
[2024-06-20 17:47] VITALS: BP 149/86; PULSE 73; RESP 16; O2SAT 99
[2024-06-20 17:56] LABS: Mucous, Urine 0 SEEN /hpf (<or=2+)
[2024-06-20 18:09] LABS: Color, Urine Yellow (Yellow); Glucose, Dipstick Normal (Normal); Ketone-Dipstick Negative (Negative); Leukocyte Esterase-Dipstick Negative /ul (Negative); Nitrite-Dipstick Negative (Negative); Occult Blood-Urine Negative /ul (Negative); Protein-Dipstick Negative (Negative); Urine Bilirubin Dipstick Negative (Negative); Urine Clarity Sl. Cloudy (Clear); Urine Urobilinogen Normal (Normal); Urine pH 6.5 (5.0 - 8.0)
[2024-06-20 18:25] LABS: Internal QC Validated? YES +Cl - CLEAR BKGD; Pregnancy, Serum, hCG Quali. NEGATIVE Negative
--- NOTE | 2024-06-20 18:49 | EX.ED.DYSGE1 ---
HPI History of Present Illness Chief Complaint: Flank Pain Informant: patient Onset/Context/Timing Onset: Weeks (1) Context: Gradual Onset Timing: Continuous Quality: Stabbing, sharp Location: Right flank, right upper and lower extremities Worsened by: Urination Relieved by: Nothing Narrative Narrative: Patient presents with pain in her right flank, right upper and lower extremities, and paresthesias to her left arm, face, and neck. Patient states that she has had the paresthesias for about a week. Patient states she was seen in the emergency department 4 days ago for this. Patient states she had lab work drawn at that time which was negative. Patient states she was instructed to follow-up with her primary care physician. Patient states she called her primary care physician today and told him she was still having the same paresthesias as well as pain on the right side of her body. Patient states her primary care physician then told her to come back to the emergency department. Patient admits to some nausea and vomiting. Patient denies any fevers or chills. Patient does admit to some dysuria. Patient does admit to some pain in her neck and low back. [facility] Medical History Avulsion fracture of lateral malleolus of right fibula Left renal stone Smoker Bilateral renal stones Wears glasses Wears dentures Alcohol use Marijuana use History of renal disease Fatty liver High cholesterol Easy bruising Restless legs Syncope Gastric reflux Environmental and seasonal allergies Leg cramps History of edema History of echocardiogram History of stress test Cardiology follow-up encounter Hypertension Peptic ulcer of stomach Migraine Chronic interstitial cystitis Endometriosis Bipolar disorder Anxiety Depression Back pain Conversion disorder History of cervical cancer Kidney stone Fibromyalgia Home Medications ?Medication ?Instructions ?Recorded ?Last Taken ?Type escitalopram oxalate 20 mg tablet 20 mg PO DAILY DEPRESSION 09/22/21 10/27/23 History (Lexapro) omeprazole 40 mg capsule,delayed 40 mg PO BID ACID REFLUX 09/22/21 10/27/23 History release quetiapine 50 mg tablet,extended 100 mg PO QHS MOOD 01/30/23 10/27/23 History release 24 hr tizanidine 4 mg tablet 4 mg PO TID PRN MUSCLE SPASMS 10/28/23 10/27/23 History propranolol 10 mg tablet 10 mg PO DAILY 12/12/23 Unknown History rosuvastatin 5 mg tablet 5 mg PO DAILY 12/12/23 Unknown History atogepant 60 mg tablet (Qulipta) 60 mg PO DAILY 04/21/24 Unknown History rimegepant 75 mg disintegrating 75 mg PO ONCE PRN migraine headache 04/21/24 Unknown History tablet (Nurtec ODT) Allergy/AdvReac Type Severity Reaction Status Date / Time amitriptyline Allergy MUSCLE Verified 06/20/24 15:48 SPASMS Bleach (Sodium Hypochlorite) Allergy Hives Verified 06/20/24 15:48 codeine Allergy Hives Verified 06/20/24 15:48 ketorolac (From Toradol) Allergy Itching Verified 06/20/24 15:48 nitrofurantoin (From Allergy Anaphylaxis Verified 06/20/24 15:48 Macrodantin) NSAIDS (Non-Steroidal Allergy Other Verified 06/20/24 15:48 Anti-Inflamma doxycycline AdvReac Vomiting Verified 06/20/24 15:48 Family History Mother Hypertension Migraine Grandmother CVA (cerebral vascular accident) Grandfather Diabetes Father Myocardial infarction Surgical History History of cystoscopy S/P laparoscopic surgery History of hysterectomy Hx of cholecystectomy Social History household members: significant other Smoking Status: Current every day smoker tobacco type: e-cigarettes alcohol intake: current details: occasionally substance use type: does not use caffeine: Yes what type of physical activity do you participate in: walking frequency: 1-2 times per week seatbelt use: always do you feel safe at home: Yes additional social history: Single ROS ROS ED Constitutional Constitutional ED: Denies chills or fever(s) Eyes Eyes: Denies blurry vision or change in vision ENT ENT ED: Denies rhinorrhea or sore throat Cardiovascular Cardiovascular: Denies chest pain or palpitations Respiratory/Chest Respiratory/Chest: Denies cough or dyspnea Gastrointestinal Gastrointestinal: Reports abdominal pain, diarrhea, nausea and vomiting Genitourinary Genitourinary ED: Reports dysuria; Denies hematuria Musculoskeletal Musculoskeletal: Reports back pain and neck pain Integumentary Denies abscess or rash Neurologic Neurologic: Reports headache(s) and paresthesias LUE; Denies weakness Allergic/Immunologic Allergic/Immunologic ED: Denies mouth swelling or urticaria EXAM Physical Exam Const Vital Signs: 06/20/24 15:48 06/20/24 17:47 06/20/24 19:00 Temperature 96.8 F L Temperature Source Temporal Pulse Rate 79 73 73 Respiratory Rate 18 16 16 Blood Pressure 142/98 H 149/86 H 140/80 H Blood Pressure Mean 112 107 100 Pulse Ox 100 99 99 Oxygen Delivery Method Room Air Room Air Room Air Positive well nourished and well developed General Appearance ED: well developed and NAD HEENT Reports moist mucous membranes Neck supple and no JVD Resp normal respiratory effort and clear to auscultation bilaterally Cardio regular rate and regular rhythm GI non-tender and non-distended Palpation: soft Extremity General Extremety ED: Negative for edema or tenderness General Extremity: Negative for edema Neuro oriented x3, CN's II-XII intact bilaterally and no sensory deficits noted Sensorium / Orientation: alert Motor Exam: strength 5/5 throughout MDM MDM MDM Narrative Medical decision making narrative: Differential diagnosis includes electrolyte abnormality, ureteral calculus, pyelonephritis, urinary tract infection, viral illness, stroke, intracranial bleeding, and conversion disorder. CT scan of the brain will be obtained to assess for stroke or intracranial bleeding. CT scan of the abdomen pelvis will be obtained to assess for ureteral calculus. CBC will be obtained to assess for leukocytosis and anemia. Comprehensive metabolic profile will be obtained to assess for hepatic function, renal function, and electrolyte abnormality. Urinalysis will be obtained to assess for urinary tract infection and hematuria. Serum hCG will be obtained to assess for . Lab Data Attestation: I reviewed the patient's lab results. Lab results narrative: CBC was reviewed and was within normal limits. Comprehensive metabolic profile was reviewed and was within normal limits. Serum hCG was reviewed and was negative urinalysis was reviewed. There is no evidence of urinary tract infection or hematuria. Labs: Laboratory Results - last 24 hr 06/20/24 06/20/24 16:24 18:00 WBC 6.6 RBC 4.52 Hgb 13.0 Hct 40.0 MCV 88.5 MCH 28.8 MCHC 32.5 RDW Std Deviation 43.4 RDW Coeff of Romario 13.5 Plt Count 214 MPV 11.7 Immature Gran % (Auto) 0.800 Neut % (Auto) 60.7 Lymph % (Auto) 32.2 [place] % (Auto) 5.3 Eos % (Auto) 0.8 Baso % (Auto) 0.2 Absolute Neuts (auto) 4.0 Absolute Lymphs (auto) 2.14 Nucleated RBC % 0 Sodium 139 Potassium 3.7 Chloride 107 Carbon Dioxide 25.0 Anion Gap 7 BUN 6 L Creatinine 0.83 Estim Creat Clear Calc 109.01 Est GFR (MDRD) Af Amer 102 Est GFR (MDRD) Non-Af 84 BUN/Creatinine Ratio 7.3 L Glucose 113 H Calcium 9.8 Total Bilirubin 0.50 AST 56 H ALT 42 Alkaline Phosphatase 137 H Total Protein 8.5 H Albumin 3.7 Globulin 4.8 H Albumin/Globulin Ratio 0.8 L Serum , Qual NEGATIVE Urine Color Yellow Urine Clarity Sl. Cloudy Urine pH 6.5 Ur Specific [place] 1.010 Urine Protein Negative Urine Glucose (UA) Normal Urine Ketones Negative Urine Occult Blood Negative Urine Nitrite Negative Urine Bilirubin Negative Urine Urobilinogen Normal Ur Leukocyte Esterase Negative Urine RBC 0-5 SEEN Urine WBC 0-5 SEEN Ur Squamous Epith Cells 5-10 SEEN Urine Bacteria 2+ Urine Mucus 0 SEEN Radiography Diagnostic Testing: Clinical Impression(s) from Imaging Studies Brain CT 06/20/24 19:06 IMPRESSION: Negative head/brain CT without intravenous contrast. Electronically Signed: Alex Polk MD at 20:19 EDT , Abdomen/Pelvis CT 06/20/24 19:08 IMPRESSION: No acute findings in the abdomen or pelvis. Electronically Signed: Alex Polk MD at 20:11 EDT , CT scan of the brain was obtained. There is no acute intracranial abnormality. This was interpreted by the radiologist and was also independently reviewed by myself. CT scan of the abdomen pelvis was obtained. There is no evidence of ureteral calculus. There is no free air or free fluid. There is no evidence of obstruction or perforation. This was interpreted by the radiologist and was also independently reviewed by myself. Treatment and Re-Evaluation :: Patient was given IV fluids, morphine, and Zofran. Patient had some relief of her pain with this. Patient was given a repeat dose of morphine. Patient was advised of her findings. Patient was instructed to follow-up with her primary care physician in 5 to 7 days. Patient understood and was agreeable with the plan. All questions were answered. Discharge Plan Triage Chief Complaint: Flank Pain ED Provider: Gage Joya Dx/Rx/DC Orders Clinical Impression: Right flank pain, Paresthesia Instructions: ED Flank Pain, Uncertain Cause, ED Paraesthesias Prescriptions: No Action rosuvastatin 5 mg tablet 5 mg PO DAILY Patient Comments: TAKE 1 TABLET BY MOUTH ONCE DAILY propranolol 10 mg tablet 10 mg PO DAILY Patient Comments: TAKE 1 TABLET BY MOUTH ONCE DAILY Nurtec ODT 75 mg tablet,disintegrating 75 mg PO ONCE PRN (Reason: migraine headache) Rx Instructions: as a single dose Qulipta 60 mg tablet 60 mg PO DAILY omeprazole 40 mg Capsule,Delayed Release(Dr/Ec) 40 mg PO BID escitalopram oxalate [Lexapro] 20 mg Tablet 20 mg PO DAILY quetiapine 50 mg tablet extended release 24 hr 100 mg PO QHS tizanidine 4 mg tablet 4 mg PO TID PRN (Reason: MUSCLE SPASMS ) Patient Comments: PT STATES THAT THEY USUALLY TAKE ALL THREE TABLETS TOGETHER ONCE DAILY AT BEDTIME BECAUSE IT MAKES THEM DROWSY ( OF 10-28-23) Primary Care Provider: Dean Varghese Referrals: Dean Varghese DO [Primary Care Provider] - 3-5 Days Print Language: Estonian Disposition Disposition: Home, Self Care
[2024-06-20 19:00] VITALS: BP 140/80; PULSE 73; RESP 16; O2SAT 99
--- NOTE | 2024-06-20 19:06 | CT_ITS ---
EXAM: CT HEAD WITHOUT INTRAVENOUS CONTRAST CLINICAL INDICATION: PARESTHESIA TECHNIQUE: Multiple axial images were obtained of the head without intravenous contrast. This CT exam was performed using one or more of the following dose reduction techniques: automated exposure control, adjustment of the mA and/or kV according to patient size, and/or use of iterative reconstruction technique. COMPARISON: 10/28/2023 FINDINGS: BRAIN AND EXTRA-AXIAL SPACES: Unremarkable. No intra- or extra-axial hemorrhage. No evidence of acute infarct. No intracranial mass or mass effect. There is preservation of the lowery/white matter interface. Posterior fossa structures are unremarkable. Ventricles are appropriate for age. No hydrocephalus. Basal cisterns are patent. BONES/JOINTS: Unremarkable. No discrete lytic or blastic abnormalities. SINUSES: Unremarkable as visualized. Clear. MASTOID AIR CELLS: Unremarkable. Clear. ORBITS: Visualized globes, extraocular muscles, optic nerves and retrobulbar fat appear unremarkable. CT/Brain/Head without Contrast IMPRESSION: Negative head/brain CT without intravenous contrast. Electronically Signed: Alex Polk MD at 20:19 EDT ,
--- NOTE | 2024-06-20 19:08 | CT_ITS ---
EXAM: CT ABDOMEN AND PELVIS WITHOUT INTRAVENOUS CONTRAST CLINICAL INDICATION: FLANK PAIN TECHNIQUE: Helically acquired images were obtained of the abdomen and pelvis without intravenous contrast. This CT exam was performed using one or more of the following dose reduction techniques: automated exposure control, adjustment of the mA and/or kV according to patient size, and/or use of iterative reconstruction technique. COMPARISON: 05/30/2024 FINDINGS: LOWER THORAX: Unremarkable. Lung bases are clear. No cardiomegaly. No significant pericardial effusion. ABDOMEN: LIVER: The liver is diffusely decreased in attenuation compatible with fatty infiltration. GALLBLADDER AND BILE DUCTS: The patient status post cholecystectomy. No intra- or extrahepatic biliary ductal dilation. PANCREAS: Unremarkable. No focal cystic mass. SPLEEN: Unremarkable. Normal size without focal cystic or solid mass. ADRENALS: Unremarkable. No nodules. KIDNEYS AND URETERS: Unremarkable. Normal renal size and position. No hydronephrosis. STOMACH AND BOWEL: Unremarkable. No stomach or bowel distention. No focal inflammatory change. PELVIS: APPENDIX: No evidence of acute appendicitis. BLADDER: Unremarkable. REPRODUCTIVE: Patient status post hysterectomy. ABDOMEN and PELVIS: INTRAPERITONEAL SPACE: Unremarkable. No ascites or other fluid collection. No free air. BONES/JOINTS: Unremarkable. No suspicious lytic or blastic abnormality. SOFT TISSUES: Unremarkable. No discrete abdominal or pelvic wall hernia. VASCULATURE: Unremarkable. Abdominal aorta is non-dilated. LYMPH NODES: Unremarkable. No enlarged lymph nodes. CT/Abdomen/Pelvis without Cont IMPRESSION: No acute findings in the abdomen or pelvis. Electronically Signed: Alex Polk MD at 20:11 EDT ,
[2024-06-20] MEDS: Morphine 4 MG/ML Syringe IV ×2 (19:19→21:09)
[2024-06-20] MEDS: Ondansetron 4 MG/2 ML Vial IV (19:19)
[2024-06-20] MEDS: 0.9% Normal Saline (1000mL) 1,000 ML 1000 ML IV (19:21)
[2024-06-20 19:22] LABS: Absolute Lymphocyte Count 2.14 X10^3/uL (0.83-4.51); Basophil# 0.01 X10^3/uL; Basophil% 0.2 % (0-1); Eosinophil# 0.05 X10^3/uL; Eosinophils% 0.8 % (0-5); Lymphocyte # 2.14 X10^3/ul (0.83-4.51); Lymphocyte % 32.2 % (19-41); Mean Corp Hgb Conc 32.5 g/dL (32-36); Mean Corpuscular Hgb 28.8 pg (27.0-32.0); Mean Corpuscular Volume 88.5 fL (81-99); Mean Platelet Vol. 11.7 fl (6.2-12.0); Monocyte# 0.35 X10^3/uL; Monocyte% 5.3 % (0-10); NRBC Flagged by Analyzer 0 % (0-5); Neutrophil # 4.04 X10^3/uL (2.7-7.7); Neutrophil % 60.7 % (47-70); Platelet Count 214 K/mm3 (150-450); RBC Distribution Width CV 13.5 % (11.6-14.6); RBC Distribution Width SD 43.4 fl (35.1-43.9); Red Blood Count 4.52 M/mm3 (4.2-5.4); White Blood Count 6.6 K/mm3 (4.4-11.0)
[2024-06-20 19:24] LABS: Bacteria 2+ /hpf (None Seen); Red Blood Cells-Urine 0-5 SEEN /hpf (0-5); Squamous Epithelial Cells - UA 5-10 SEEN /hpf (5-10); White Blood Cells 0-5 SEEN /hpf (0-5)
[2024-06-20 19:41] LABS: ALB/GLOB Ratio 0.8 RATIO (0.9-2.4); AST(SGOT) 56 U/L (15-37); Alanine Aminotransfer ALT/SGPT 42 U/L (13-56); Albumin, Serum 3.7 g/dL (3.2-5.0); Alkaline Phosphatase 137 U/L (45-117); Anion Gap 7 (5-15); BUN 6 mg/dL (7-18); BUN/Creat Ratio 7.3 RATIO (10-20); Calcium,Total 9.8 mg/dL (8.5-10.1); Chloride 107 mmol/L (98-107); Creatinine, Serum 0.83 mg/dL (0.55-1.02); EST Glomerular Filtration Rate 84 mL/min (>60); Est Glom Filt Rate - Afr Amer 102 mL/min (>60); Estimated Creatinine Clearance 109.01 ml/min; Globulin 4.8 g/dL (2.2-4.2); Glucose 113 mg/dL (74-106); Potassium 3.7 mmol/L (3.5-5.1); Protein, Total 8.5 g/dL (6.4-8.2); Sodium Level 139 mmol/L (136-145)
[2024-06-20 20:59] VITALS: BP 144/90; PULSE 68; RESP 17; TEMP 36.6; O2SAT 99
== END 2024-06-20 21:19 | disposition home or self-care (01) ==
PROVIDERS: Emergency Provider Emergency Medicine; Visit Provider Emergency Medicine
DX: R10.9 Unspecified abdominal pain (principal); R20.2 Paresthesia of skin; F17.290 Nicotine dependence, other tobacco product, uncomplicated
CPT/HCPCS: 70450; 74176; 80053; 81001; 84703; 85025; 96361; 96374; 96375; 96376; 99283; J7030; A4216; J2405

== ENCOUNTER 2024-07-16 14:03 | Emergency (ER) | payer MEDICAID, SELFPAY ==
[2024-07-16 14:03] VITALS: BP 149/94; PULSE 118; RESP 20; TEMP 35.8; O2SAT 96; BMI 39.4
--- NOTE | 2024-07-16 14:16 | EDS_ITS ---
HPI History of Present Illness Chief Complaint: Lower Extremity Injury Detail of Chief Complaint: Right leg pain Informant: patient Narrative Narrative: Patient presents to the emergency department complaint of right leg pain that she has had since the beginning of May. Patient states that she had a fall in May and was seen here and required stitches to her right leg and apparently had x-rays at that time that were unremarkable. She was then followed up by her primary care physician. She has had pain off and on since then. She had about a week where she was doing pretty well. Since yesterday increasing pain to the right knee and just below the right knee. Patient states that at times the pain severe and it is causing her to fall and is fallen 3 times today. [facility] Medical History Avulsion fracture of lateral malleolus of right fibula Left renal stone Smoker Bilateral renal stones Wears glasses Wears dentures Alcohol use Marijuana use History of renal disease Fatty liver High cholesterol Easy bruising Restless legs Syncope Gastric reflux Environmental and seasonal allergies Leg cramps History of edema History of echocardiogram History of stress test Cardiology follow-up encounter Hypertension Peptic ulcer of stomach Migraine Chronic interstitial cystitis Endometriosis Bipolar disorder Anxiety Depression Back pain Conversion disorder History of cervical cancer Kidney stone Fibromyalgia Home Medications ?Medication ?Instructions ?Recorded ?Last Taken ?Type escitalopram oxalate 20 mg tablet 20 mg PO DAILY DEPRESSION 09/22/21 10/27/23 History (Lexapro) omeprazole 40 mg capsule,delayed 40 mg PO BID ACID REFLUX 09/22/21 10/27/23 History release quetiapine 50 mg tablet,extended 100 mg PO QHS MOOD 01/30/23 10/27/23 History release 24 hr tizanidine 4 mg tablet 4 mg PO TID PRN MUSCLE SPASMS 10/28/23 10/27/23 History propranolol 10 mg tablet 10 mg PO DAILY 12/12/23 Unknown History rosuvastatin 5 mg tablet 5 mg PO DAILY 12/12/23 Unknown History atogepant 60 mg tablet (Qulipta) 60 mg PO DAILY 04/21/24 Unknown History rimegepant 75 mg disintegrating 75 mg PO ONCE PRN migraine headache 04/21/24 Unknown History tablet (Nurtec ODT) hydrocodone-acetaminophen 5-325mg 1 tab PO Q4H PRN PRN Pain 2 days 07/16/24 Unknown Rx 5mg-325mg #10 TABLETS Allergy/AdvReac Type Severity Reaction Status Date / Time amitriptyline Allergy MUSCLE Verified 07/16/24 14:05 SPASMS Bleach (Sodium Hypochlorite) Allergy Hives Verified 07/16/24 14:05 codeine Allergy Hives Verified 07/16/24 14:05 ketorolac (From Toradol) Allergy Itching Verified 07/16/24 14:05 nitrofurantoin (From Allergy Anaphylaxis Verified 07/16/24 14:05 Macrodantin) NSAIDS (Non-Steroidal Allergy Other Verified 07/16/24 14:05 Anti-Inflamma doxycycline AdvReac Vomiting Verified 07/16/24 14:05 Family History Mother Hypertension Migraine Grandmother CVA (cerebral vascular accident) Grandfather Diabetes Father Myocardial infarction Surgical History History of cystoscopy S/P laparoscopic surgery History of hysterectomy Hx of cholecystectomy Social History household members: significant other Smoking Status: Current every day smoker tobacco type: e-cigarettes alcohol intake: current details: occasionally substance use type: does not use caffeine: Yes what type of physical activity do you participate in: walking frequency: 1-2 times per week seatbelt use: always do you feel safe at home: Yes additional social history: Single ROS ROS ED Review of Systems ROS Unobtainable: other Constitutional Constitutional ED: Reports lethargy; Denies chills, fever(s), sweats or weight loss Eyes Eyes: Denies blurry vision, change in vision or diplopia ENT ENT ED: Denies rhinorrhea or sore throat Cardiovascular Cardiovascular: Denies chest pain, orthopnea or racing heartbeat Respiratory/Chest Respiratory/Chest: Denies cough, dyspnea, dyspnea on exertion, orthopnea or sputum Gastrointestinal Gastrointestinal: Denies abdominal pain, diarrhea, nausea or vomiting Genitourinary Genitourinary ED: Denies dysuria, hematuria or urinary frequency Musculoskeletal Musculoskeletal: Reports other Details: Right knee pain ; Denies arthralgias, back pain, myalgias or neck pain Integumentary Denies abscess, Abrasions or rash Neurologic Neurologic: Denies headache(s) or weakness Psychiatric Psychiatric: Denies anxiety, depression or suicidal thoughts Endocrine Endocrinology: Denies polydipsia, polyphagia or polyuria Hematologic/Lymphatic Hematologic/Lymphatic: Denies easy bleeding, easy bruising or lymphadenopathy Allergic/Immunologic Allergic/Immunologic ED: Denies mouth swelling, tongue swelling or urticaria EXAM Physical Exam Const Vital Signs: 07/16/24 14:03 Temperature 96.4 F L Temperature Source Temporal Pulse Rate 118 H Respiratory Rate 20 H Blood Pressure 149/94 H Blood Pressure Mean 112 Pulse Ox 96 Oxygen Delivery Method Room Air Positive well nourished and well developed General Appearance ED: well developed and NAD HEENT Reports TM's clear and moist mucous membranes normocephalic and atraumatic; Negative for trauma or tenderness Tympanic Membrane ED: Yes TM's clear Eyes PERRL and EOMs intact bilaterally General Eye ED: Negative for pale conjunctiva or scleral icterus Neck no lymphadenopathy, supple and no JVD General: Negative for tenderness Chest Wall inspection of chest normal and palpation of chest normal Chest: Negative for tenderness Resp normal respiratory effort and clear to auscultation bilaterally Effort and Inspection: Negative for respiratory distress or pain with movement Auscultation: Negative for rhonchi, wheezes or diminished lung sounds Cardio regular rate, regular rhythm, S1 normal heart sound, S2 normal heart sound and no murmurs Peripheral Pulses: pulses 2+ throughout GI normal to inspection, nondistended, normoactive bowel sounds, soft to palpation, non-tender, non-distended and no masses Back/Spine no CVA tenderness and no thoracic nor lumbar tenderness Extremity Extremity Narrative: Right knee-patient has diffuse tenderness palpation about the knee over the patella and medial and lateral joint lines. She has limited range of motion in flexion secondary to pain. There is no soft tissue swelling or effusion noted. No send no ecchymosis or bruising. No cellulitic changes. She does not tolerate ligamentous exam. General Extremety ED: Negative for edema General Extremity: Negative for edema Neuro oriented x3, CN's II-XII intact bilaterally, no sensory deficits noted and gait normal Sensorium / Orientation: awake, alert, oriented to person, oriented to place and oriented to time Motor Exam: strength 5/5 throughout and strength abnormal Psych mental status grossly normal Skin no rashes or lesions noted and no wounds MDM MDM MDM Narrative Medical decision making narrative: Patient presents with ongoing right knee pain. There is no evidence of infection or effusion. X-rays unremarkable. She was given 1 [place] tablet in the emergency department. She be given a knee immobilizer. She did not want crutches that she has them at home. Will refer to orthopedics for follow-up. Will give prescription for few [place] for severe pain should she need them. Etiology of knee pain uncertain. Radiography Diagnostic Testin view x-rays of the right knee obtained interpreted by myself as no evidence of fracture dislocation or any acute process. Discharge Plan Triage Chief Complaint: Lower Extremity Injury ED Provider: Jm Ansari Dx/Rx/DC Orders Clinical Impression: Acute knee pain Instructions: ED Knee Pain of Uncertain Cause Prescriptions: New hydrocodone-acetaminophen 5-325 mg tablet 1 tab PO Q4H PRN PRN (Reason: Pain) 2 Days Qty: 10 0RF No Action rosuvastatin 5 mg tablet 5 mg PO DAILY Patient Comments: TAKE 1 TABLET BY MOUTH ONCE DAILY propranolol 10 mg tablet 10 mg PO DAILY Patient Comments: TAKE 1 TABLET BY MOUTH ONCE DAILY Nurtec ODT 75 mg tablet,disintegrating 75 mg PO ONCE PRN (Reason: migraine headache) Rx Instructions: as a single dose Qulipta 60 mg tablet 60 mg PO DAILY omeprazole 40 mg Capsule,Delayed Release(Dr/Ec) 40 mg PO BID escitalopram oxalate [Lexapro] 20 mg Tablet 20 mg PO DAILY quetiapine 50 mg tablet extended release 24 hr 100 mg PO QHS tizanidine 4 mg tablet 4 mg PO TID PRN (Reason: MUSCLE SPASMS ) Patient Comments: PT STATES THAT THEY USUALLY TAKE ALL THREE TABLETS TOGETHER ONCE DAILY AT BEDTIME BECAUSE IT MAKES THEM DROWSY ( OF 10-28-23) Primary Care Provider: Dean Varghese Referrals: Kolby Hays DO [Med Staff - Active Staff] - 5-7 Days Dean Varghese DO [Primary Care Provider] - Print Language: Georgian Disposition Disposition: Home, Self Care
[2024-07-16] MEDS: HYDROcodone Bitartrate/Apap 5/325 Tablet PO (14:20)
--- NOTE | 2024-07-16 14:25 | RAD_ITS ---
EXAM: XR RIGHT KNEE COMPLETE, 4 OR MORE VIEWS CLINICAL INDICATION: pain TECHNIQUE: Four or more views of the right knee. COMPARISON: No relevant prior studies available. FINDINGS: BONES/JOINTS: Unremarkable. No acute fracture. No subluxation. Normal alignment. Preservation of the joint space. No sclerotic or destructive changes observed. SOFT TISSUES: Unremarkable. No soft tissue swelling or gas. No radiopaque foreign body. RAD/Knee 4 or More Views IMPRESSION: Negative right knee x-rays. Electronically Signed: Hayder Fay MD at 15:57 EDT ,
== END 2024-07-16 15:36 | disposition home or self-care (01) ==
LOC: ED 14:44
PROVIDERS: Emergency Provider Emergency Medicine; Visit Provider Emergency Medicine
DX: M25.561 Pain in right knee (principal); F31.9 Bipolar disorder, unspecified; F41.9 Anxiety disorder, unspecified; I10 Essential (primary) hypertension; E78.00 Pure hypercholesterolemia, unspecified; K21.9 Gastro-esophageal reflux disease without esophagitis; G43.909 Migraine, unspecified, not intractable, without status migrainosus; M79.7 Fibromyalgia; F17.290 Nicotine dependence, other tobacco product, uncomplicated; Z88.6 Allergy status to analgesic agent; Z88.1 Allergy status to other antibiotic agents; Z88.8 Allergy status to other drugs, medicaments and biological substances; Z87.11 Personal history of peptic ulcer disease; Z85.41 Personal history of malignant neoplasm of cervix uteri; Z79.899 Other long term (current) drug therapy
CPT/HCPCS: 73564; 99282

== ENCOUNTER 2024-07-30 11:26 | Emergency (ER) | payer MEDICAID, SELFPAY ==
[2024-07-30 11:27] VITALS: BP 158/109; PULSE 95; RESP 16; TEMP 36.6; O2SAT 99; BMI 38.9
[2024-07-30] MEDS: Ondansetron ODT 4 MG Tablet PO (12:42)
[2024-07-30 12:45] LABS: Bacteria 0 SEEN /hpf (None Seen); Mucous, Urine 0 SEEN /hpf (<or=2+); Red Blood Cells-Urine 0 SEEN /hpf (0-5); White Blood Cells 0 SEEN /hpf (0-5)
[2024-07-30 12:47] LABS: Color, Urine Yellow (Yellow); Glucose, Dipstick Normal (Normal); Ketone-Dipstick Negative (Negative); Leukocyte Esterase-Dipstick Negative /ul (Negative); Nitrite-Dipstick Negative (Negative); Occult Blood-Urine Negative /ul (Negative); Protein-Dipstick Negative (Negative); Urine Bilirubin Dipstick Negative (Negative); Urine Clarity Clear (Clear); Urine Urobilinogen Normal (Normal)
--- NOTE | 2024-07-30 12:48 | ED.RN ---
PT REFUSES NAPROSYN. STATES I CAN'T TAKE NSAIDS BECAUSE THEY UPSET MY STOMACH. PT AWARE PHYSICIAN HAS AUTHORIZED ONE DOSE. PT STILL REFUSES, STATING CAN YOU ASK HIM FOR SOMETHING STRONGER FOR ME FOR PAIN, I USUALLY HAVE TO HAVE STRONG PAIN MEDICATION. PT AWARE NOT WILLING AT THIS TIME. PT REFUSES
[2024-07-30 12:55] LABS: Squamous Epithelial Cells - UA 0-5 SEEN /hpf (5-10)
--- NOTE | 2024-07-30 13:05 | EDS_ITS ---
HPI History of Present Illness Chief Complaint: Complaint Detail of Chief Complaint: Dysuria, frequency and right flank pain Informant: patient Onset/Context/Timing Onset: Yesterday Context: Sudden Onset Timing: Intermittent Quality: Pain in the right flank area Location: Right flank Current Severity: Mild Maximum Severity: Moderate Worsened by: Palpation Relieved by: Nothing Associated Symptoms Associated Symptoms: Dysuria and frequency and change in color of urine. Narrative Narrative: Patient is a 34-year-old female. She has history of acute cystitis and pyelonephritis. She presents with urinary symptoms of started yesterday. She denies fever, chills night sweats. She reports nausea and vomiting. She denies hematemesis or hematochezia. She reports vomiting 2 times. There is no change in bowels i.e. caliber, consistency or color. Patient denies any [employer]ING [employer]NA[employer] symptoms. There is no history of direct or indirect trauma. Movement does exacerbate her right flank pain. She has no other complaints. Review of prior records indicates she has history of bilateral renal calculi. There is no documentation supports that she has had ureterolithiasis in the past. Prior similar symptoms: Yes (Urinary tract infection) Recent Illness/Hospitalization: No [facility], [facility] Medical History Avulsion fracture of lateral malleolus of right fibula Left renal stone Smoker Bilateral renal stones Wears glasses Wears dentures Alcohol use Marijuana use History of renal disease Fatty liver High cholesterol Easy bruising Restless legs Syncope Gastric reflux Environmental and seasonal allergies Leg cramps History of edema History of echocardiogram History of stress test Cardiology follow-up encounter Hypertension Peptic ulcer of stomach Migraine Chronic interstitial cystitis Endometriosis Bipolar disorder Anxiety Depression Back pain Conversion disorder History of cervical cancer Kidney stone Fibromyalgia Home Medications ?Medication ?Instructions ?Recorded ?Last Taken ?Type escitalopram oxalate 20 mg tablet 20 mg PO DAILY DEPRESSION 09/22/21 10/27/23 History (Lexapro) omeprazole 40 mg capsule,delayed 40 mg PO BID ACID REFLUX 09/22/21 10/27/23 History release quetiapine 50 mg tablet,extended 100 mg PO QHS MOOD 01/30/23 10/27/23 History release 24 hr tizanidine 4 mg tablet 4 mg PO TID PRN MUSCLE SPASMS 10/28/23 10/27/23 History propranolol 10 mg tablet 10 mg PO DAILY 12/12/23 Unknown History rosuvastatin 5 mg tablet 5 mg PO DAILY 12/12/23 Unknown History atogepant 60 mg tablet (Qulipta) 60 mg PO DAILY 04/21/24 Unknown History rimegepant 75 mg disintegrating 75 mg PO ONCE PRN migraine headache 04/21/24 Unknown History tablet (Nurtec ODT) hydrocodone-acetaminophen 5-325mg 1 tab PO Q4H PRN PRN Pain 2 days 07/16/24 Unknown Rx 5mg-325mg #10 TABLETS prednisone 10 mg tablet 10 mg PO QDAY 10 days #28 tabs 07/25/24 Unknown Rx triamcinolone acetonide 55 mcg 2 spray intranasal QDAY #16.9 mL 07/25/24 Unknown Rx nasal spray aerosol (Nasacort) ondansetron 4 mg disintegrating 4 mg PO Q8H PRN PRN Nausea #10 tabs 07/30/24 Unknown Rx tablet phenazopyridine 200 mg tablet 200 mg PO TID 6 doses #6 tabs 07/30/24 Unknown Rx (Pyridium) Allergy/AdvReac Type Severity Reaction Status Date / Time amitriptyline Allergy MUSCLE Verified 07/30/24 11:28 SPASMS Bleach (Sodium Hypochlorite) Allergy Hives Verified 07/30/24 11:28 codeine Allergy Hives Verified 07/30/24 11:28 ketorolac (From Toradol) Allergy Itching Verified 07/30/24 11:28 nitrofurantoin (From Allergy Anaphylaxis Verified 07/30/24 11:28 Macrodantin) NSAIDS (Non-Steroidal Allergy Other Verified 07/30/24 11:28 Anti-Inflamma doxycycline AdvReac Vomiting Verified 07/30/24 11:28 Family History Mother Hypertension Migraine Grandmother CVA (cerebral vascular accident) Grandfather Diabetes Father Myocardial infarction Surgical History History of cystoscopy S/P laparoscopic surgery History of hysterectomy Hx of cholecystectomy Social History household members: significant other Smoking Status: Current every day smoker tobacco type: e-cigarettes alcohol intake: current details: occasionally substance use type: does not use caffeine: Yes what type of physical activity do you participate in: walking frequency: 1-2 times per week seatbelt use: always do you feel safe at home: Yes additional social history: Single ROS ROS ED Constitutional Constitutional ED: Denies chills, fever(s), subjective or sweats Cardiovascular Cardiovascular: Denies chest pain or palpitations Respiratory/Chest Respiratory/Chest: Denies cough, dyspnea or dyspnea on exertion Gastrointestinal Gastrointestinal: Reports nausea and vomiting; Denies abdominal pain, diarrhea or melena Genitourinary Genitourinary ED: Reports dysuria and urinary frequency; Denies hematuria Musculoskeletal Musculoskeletal: Denies back pain or myalgias Integumentary Denies rash Hematologic/Lymphatic Hematologic/Lymphatic: Denies easy bleeding or easy bruising EXAM Physical Exam Const Vital Signs: 07/30/24 11:27 Temperature 97.9 F Temperature Source Oral Pulse Rate 95 Respiratory Rate 16 Blood Pressure 158/109 H Blood Pressure Mean 125 Pulse Ox 99 Oxygen Delivery Method Room Air Positive well nourished and well developed General Appearance ED: well developed and NAD HEENT Reports moist mucous membranes HEENT Narrative: Head is atraumatic normocephalic. Ears normal. Nares patent. Eyes PERRL and EOMs intact bilaterally General Eye ED: Negative for scleral icterus Neck no lymphadenopathy, supple and no JVD Resp normal respiratory effort and clear to auscultation bilaterally Cardio regular rate, regular rhythm, S1 normal heart sound, S2 normal heart sound and no murmurs GI normal to inspection, nondistended, normoactive bowel sounds, non-distended and no masses; Negative for non-tender or hepatosplenomegaly GI Narrative: Patient has suprapubic discomfort. Back/Spine General Back: CVA tenderness right (Lower than 1 would expect.) Extremity normal to inspection General Extremety ED: Negative for edema General Extremity: Negative for edema Neuro oriented x3 and CN's II-XII intact bilaterally Sensorium / Orientation: alert Psych Mood & Affect: depressed Skin no rashes or lesions noted, no wounds and skin turgor normal General Skin Exam: Negative for jaundice MDM MDM MDM Narrative Medical decision making narrative: Patient with dysuria. Need to evaluate for urinary tract infection. This could be due to interstitial cystitis, UTI bacterial etiology, chemical. Will obtain UA. Patient declined and said that was ordered. She does not have a true allergic reaction. She told the nurse that she needs something stronger. Patient was not ordered an opiate analgesic. She did receive Zofran for her reported nausea and vomiting. History & Record Review Additional record(s) reviewed:: Prior ED visit and Prior labs Lab Data Attestation: I reviewed the patient's lab results. Lab results narrative: Urinalysis is normal. Labs: Laboratory Results - last 24 hr 07/30/24 12:35 Urine Color Yellow Urine Clarity Clear Urine pH 7.0 Ur Specific [place] 1.010 Urine Protein Negative Urine Glucose (UA) Normal Urine Ketones Negative Urine Occult Blood Negative Urine Nitrite Negative Urine Bilirubin Negative Urine Urobilinogen Normal Ur Leukocyte Esterase Negative Urine RBC 0 SEEN Urine WBC 0 SEEN Ur Squamous Epith Cells 0-5 SEEN Urine Bacteria 0 SEEN Urine Mucus 0 SEEN Treatment and Re-Evaluation :: Since patient's urine reveals no reds, no whites and negative for leukoesterase and nitrites and negative for bacteria patient will be treated with Pyridium for her urinary symptoms. She can take Tylenol for her flank pain. Suspect this is musculoskeletal etiology. Discharge Plan Triage Chief Complaint: Complaint ED Provider: Rayray Irving Dx/Rx/DC Orders Clinical Impression: Dysuria, Acute right flank pain, Nausea & vomiting, Elevated blood-pressure reading without diagnosis of hypertension Instructions: ED Dysuria, Uncertain Cause (Adult), ED Flank Pain, Uncertain Cause, ED Vomiting (Adult) Prescriptions: New ondansetron 4 mg tablet,disintegrating 4 mg PO Q8H PRN PRN (Reason: Nausea) Qty: 10 0RF phenazopyridine [Pyridium] 200 mg tablet 200 mg PO TID Qty: 6 0RF No Action rosuvastatin 5 mg tablet 5 mg PO DAILY Patient Comments: TAKE 1 TABLET BY MOUTH ONCE DAILY propranolol 10 mg tablet 10 mg PO DAILY Patient Comments: TAKE 1 TABLET BY MOUTH ONCE DAILY Nurtec ODT 75 mg tablet,disintegrating 75 mg PO ONCE PRN (Reason: migraine headache) Rx Instructions: as a single dose Qulipta 60 mg tablet 60 mg PO DAILY prednisone 10 mg tablet 10 mg PO QDAY 10 Days Qty: 28 0RF Rx Instructions: Take 4 tabs once daily days 1-3, 3 tabs once daily days 4-6, 2 tabs once daily days 7-9 and 1 tab once day 10. triamcinolone acetonide [Nasacort] 55 mcg aerosol,spray 2 spray intranasal QDAY Qty: 16.9 0RF Rx Instructions: administer into each nostril omeprazole 40 mg Capsule,Delayed Release(Dr/Ec) 40 mg PO BID escitalopram oxalate [Lexapro] 20 mg Tablet 20 mg PO DAILY quetiapine 50 mg tablet extended release 24 hr 100 mg PO QHS tizanidine 4 mg tablet 4 mg PO TID PRN (Reason: MUSCLE SPASMS ) Patient Comments: PT STATES THAT THEY USUALLY TAKE ALL THREE TABLETS TOGETHER ONCE DAILY AT BEDTIME BECAUSE IT MAKES THEM DROWSY ( OF 10-28-23) hydrocodone-acetaminophen 5-325 mg tablet 1 tab PO Q4H PRN PRN (Reason: Pain) 2 Days Qty: 10 0RF Primary Care Provider: Dean Varghese Referrals: Dean Varghese DO [Primary Care Provider] - 3-5 Days if not improving Print Language: Turkish Disposition Disposition: Home, Self Care
== END 2024-07-30 13:21 | disposition home or self-care (01) ==
PROVIDERS: Emergency Provider Emergency Medicine; Visit Provider Emergency Medicine
DX: R10.9 Unspecified abdominal pain (principal); F31.9 Bipolar disorder, unspecified; R30.0 Dysuria; R03.0 Elevated blood-pressure reading, without diagnosis of hypertension; R11.2 Nausea with vomiting, unspecified; E78.00 Pure hypercholesterolemia, unspecified; I10 Essential (primary) hypertension; Z79.899 Other long term (current) drug therapy; K21.9 Gastro-esophageal reflux disease without esophagitis; Z90.710 Acquired absence of both cervix and uterus; Z90.49 Acquired absence of other specified parts of digestive tract; F17.290 Nicotine dependence, other tobacco product, uncomplicated
CPT/HCPCS: 81001; 99282

== ENCOUNTER 2024-08-03 20:31 | Emergency (ER) | payer MEDICAID, SELFPAY ==
[2024-08-03 20:32] VITALS: BP 179/121; PULSE 95; RESP 18; TEMP 36.6; O2SAT 99; BMI 38.7
--- NOTE | 2024-08-03 20:57 | ED.VIS.GI ---
HPI HPI - GI History of Present Illness Chief Complaint: Flank Pain Informant: patient Abdominal Pain/Flank Pain Onset: Today and Hours Context: Gradual Onset Timing: Intermittent Location: Left Flank Current Severity: Mild Maximum Severity: Mild Worsened by: Nothing Relieved by: Nothing Nausea/Vomiting/Emesis GI Symptom: Positive for Nausea and Vomiting Onset: Today Severity: Mild Diarrhea/Melena/Hematochezia GI Symptom: Negative for Diarrhea, Melena or Hematochezia Associated Symptoms Associated Symptoms: Negative for Dysuria, Frequency or Hematuria Narrative Narrative: 34-year-old female history of chronic pain, bipolar and fibromyalgia. Prior cholecystectomy and total hysterectomy. History of nonalcoholic cirrhosis. States that she has a left flank pain today. Started this morning. She has had intermittent nausea and vomiting. Patient had 5 different abdominal CAT scans this year showing no acute abnormality. Denies any dysuria or hematuria. No fever. Prior similar symptoms: Yes Recent Illness/Hospitalization: No [facility] PFSH Medical History Avulsion fracture of lateral malleolus of right fibula Left renal stone Smoker Bilateral renal stones Wears glasses Wears dentures Alcohol use Marijuana use History of renal disease Fatty liver High cholesterol Easy bruising Restless legs Syncope Gastric reflux Environmental and seasonal allergies Leg cramps History of edema History of echocardiogram History of stress test Cardiology follow-up encounter Hypertension Peptic ulcer of stomach Migraine Chronic interstitial cystitis Endometriosis Bipolar disorder Anxiety Depression Back pain Conversion disorder History of cervical cancer Kidney stone Fibromyalgia Home Medications ?Medication ?Instructions ?Recorded ?Last Taken ?Type escitalopram oxalate 20 mg tablet 20 mg PO DAILY DEPRESSION 09/22/21 10/27/23 History (Lexapro) omeprazole 40 mg capsule,delayed 40 mg PO BID ACID REFLUX 09/22/21 10/27/23 History release quetiapine 50 mg tablet,extended 100 mg PO QHS MOOD 01/30/23 10/27/23 History release 24 hr tizanidine 4 mg tablet 4 mg PO TID PRN MUSCLE SPASMS 10/28/23 10/27/23 History propranolol 10 mg tablet 10 mg PO DAILY 12/12/23 Unknown History rosuvastatin 5 mg tablet 5 mg PO DAILY 12/12/23 Unknown History atogepant 60 mg tablet (Qulipta) 60 mg PO DAILY 04/21/24 Unknown History rimegepant 75 mg disintegrating 75 mg PO ONCE PRN migraine headache 04/21/24 Unknown History tablet (Nurtec ODT) hydrocodone-acetaminophen 5-325mg 1 tab PO Q4H PRN PRN Pain 2 days 07/16/24 Unknown Rx 5mg-325mg #10 TABLETS prednisone 10 mg tablet 10 mg PO QDAY 10 days #28 tabs 07/25/24 Unknown Rx triamcinolone acetonide 55 mcg 2 spray intranasal QDAY #16.9 mL 07/25/24 Unknown Rx nasal spray aerosol (Nasacort) ondansetron 4 mg disintegrating 4 mg PO Q8H PRN PRN Nausea #10 tabs 07/30/24 Unknown Rx tablet phenazopyridine 200 mg tablet 200 mg PO TID 6 doses #6 tabs 07/30/24 Unknown Rx (Pyridium) Allergy/AdvReac Type Severity Reaction Status Date / Time amitriptyline Allergy MUSCLE Verified 08/03/24 20:35 SPASMS Bleach (Sodium Hypochlorite) Allergy Hives Verified 08/03/24 20:35 codeine Allergy Hives Verified 08/03/24 20:35 ketorolac (From Toradol) Allergy Itching Verified 08/03/24 20:35 nitrofurantoin (From Allergy Anaphylaxis Verified 08/03/24 20:35 Macrodantin) NSAIDS (Non-Steroidal Allergy Other Verified 08/03/24 20:35 Anti-Inflamma doxycycline AdvReac Vomiting Verified 08/03/24 20:35 Family History Mother Hypertension Migraine Grandmother CVA (cerebral vascular accident) Grandfather Diabetes Father Myocardial infarction Surgical History History of cystoscopy S/P laparoscopic surgery History of hysterectomy Hx of cholecystectomy Social History household members: significant other Smoking Status: Current every day smoker tobacco type: e-cigarettes alcohol intake: current details: occasionally substance use type: does not use caffeine: Yes what type of physical activity do you participate in: walking frequency: 1-2 times per week seatbelt use: always do you feel safe at home: Yes additional social history: Single ROS ROS ED ROS Narrative Left flank pain. Nausea vomiting. Constitutional Constitutional ED: Denies chills or fever(s) ENT ENT ED: Denies ear pain Cardiovascular Cardiovascular: Denies chest pain Respiratory/Chest Respiratory/Chest: Denies cough Gastrointestinal Gastrointestinal: Reports abdominal pain, nausea, vomiting and other Details: Left flank pain. Genitourinary Genitourinary ED: Denies dysuria or hematuria Musculoskeletal Musculoskeletal: Denies arthralgias Integumentary Denies abscess Neurologic Neurologic: Denies headache(s) Psychiatric Psychiatric: Denies anxiety Endocrine Endocrinology: Denies polydipsia Hematologic/Lymphatic Hematologic/Lymphatic: Denies easy bleeding Allergic/Immunologic Allergic/Immunologic ED: Denies mouth swelling or tongue swelling EXAM Physical Exam Narrative Exam Narrative: Well-appearing 34-year-old female. Vital signs stable afebrile. Initial blood pressure elevated 179/121. That will be rechecked. H EENT exam unremarkable. Moist extremities. Neck nontender no lymphadenopathy. Lungs clear to auscultation bilaterally. Heart regular rate rhythm rate about 90 no murmur. Chest wall ribs nontender. Abdomen soft nontender. Nondistended. Normal bowel sounds no peritoneal signs. No localizing tenderness. She complains of pain in her left flank region is not reproducible. No abdominal distention. No obstruction. No hernia or mass. Back nontender. No CVA tenderness. Moving all 4 extremities. Calves are nontender without edema. Neurologically she is awake and alert no focal motor deficits. Const Vital Signs: 08/03/24 20:32 Temperature 97.8 F Temperature Source Oral Pulse Rate 95 Respiratory Rate 18 Blood Pressure 179/121 H Blood Pressure Mean 140 Pulse Ox 99 Oxygen Delivery Method Room Air Positive well nourished and well developed; Negative for cachectic, contractures or unkempt General Appearance ED: well developed and NAD; Negative for unkempt, cachectic, contractures or pallor Nutritional Appearance: Negative for cachectic HEENT Reports moist mucous membranes normocephalic and atraumatic; Negative for trauma or tenderness Eyes PERRL and EOMs intact bilaterally General Eye ED: Negative for pale conjunctiva or scleral icterus Neck no lymphadenopathy, supple and no JVD General: Negative for tenderness Carotids: Negative for other Resp normal respiratory effort and clear to auscultation bilaterally Effort and Inspection: Negative for respiratory distress Auscultation: Negative for rales, rhonchi, wheezes or diminished lung sounds Cardio regular rate, regular rhythm, S1 normal heart sound, S2 normal heart sound and no murmurs GI non-tender, non-distended and no masses GI Narrative: Complaint left flank pain but no reproducible pain on exam. Auscultation: normoactive bowel sounds Palpation: soft; Negative for tender, guarding or rebound tenderness present Back/Spine no CVA tenderness General Back: Negative for CVA tenderness Cervical Spine: Negative for cervical spine tenderness Thoracic Spine / Upper Back: Negative for thoracic spinal tenderness Lumbar Spine / Lower Back: Negative for lumbar spinal tenderness Coccyx: Negative for other Extremity full ROM General Extremety ED: Negative for edema or tenderness General Extremity: Negative for edema Neuro CN's II-XII intact bilaterally and moves all extremities Sensorium / Orientation: alert, oriented to person, oriented to place and oriented to time; Negative for orientation impaired, confused, lethargic or stuporous Psych mental status grossly normal and thought process normal Appearance: Negative for unkempt Attitude: No agitated Mood & Affect: Negative for depressed, anxious or tearful Skin no wounds General Skin Exam: Negative for jaundice or pallor Lesions: no lesions Rashes: no rashes Trauma: Negative for abrasion Nails: Negative for discolored MDM MDM MDM Narrative Medical decision making narrative: 34-year-old female complaint left flank pain. Benign exam. No reproducible pain. Screening labs to be obtained. I offered her Toradol she is allergic to that. Allergic to NSAIDs. Has been taking Tylenol at home without relief. She is under chronic pain management I do not think it is a good idea to give her narcotics. She has had 5 prior CTs at this ER alone this year all of which were negative for kidney stone. Her urine looks clean resample on the counter. Given Zofran for nausea and reassessed. I do not think she needs imaging. Multiple repeat exams the last 1 10:37 PM patient doing well. Clinically looks comfortable. She was offered pain medication but not narcotic pain medication she did not want anything else. I do not think narcotics are necessary. I do not think imaging is necessary since she has had multiple CAT scans this year all of which have been negative. She will be discharged to home. Tylenol for pain. Outpatient follow-up. I did have a discussion the patient and her significant other explained to her that typically we do not write for narcotic prescriptions for chronic verifiable pain and we do not have a specific cause. She seemed to understand but was frustrated and disappointed. History & Record Review Discussion w/independent historian: Patient and Family Additional record(s) reviewed:: Prior inpatient record, Prior outpatient record, Prior ED visit and Prior labs Lab Data Attestation: I reviewed the patient's lab results. Lab results narrative: CBC normal. White count of 6. H&H 12.9 and 38. Platelets 202. UA normal. No white or red cells. No nitrates. Only rare bacteria. No signs of UTI. And no red blood cells. Chemistries show gap 9. Normal BUN and creatinine 9 and 0.8. Glucose 126. Liver enzymes show an AST of 61. Alk phos is 120. Lipase normal at 25. Labs: Laboratory Results - last 24 hr 08/03/24 08/03/24 21:02 21:14 WBC 6.4 RBC 4.29 Hgb 12.9 Hct 38.8 MCV 90.4 MCH 30.1 MCHC 33.2 RDW Std Deviation 47.8 H RDW Coeff of Romario 14.5 Plt Count 202 MPV 11.2 Immature Gran % (Auto) 0.500 Neut % (Auto) 53.1 Lymph % (Auto) 39.1 [place] % (Auto) 6.1 Eos % (Auto) 0.9 Baso % (Auto) 0.3 Absolute Neuts (auto) 3.4 Absolute Lymphs (auto) 2.50 Nucleated RBC % 0 Differential Comment SCANNED Sodium 138 Potassium 3.7 Chloride 109 H Carbon Dioxide 20.0 L Anion Gap 9 BUN 9 Creatinine 0.84 Estim Creat Clear Calc 106.03 Est GFR (MDRD) Af Amer 100 Est GFR (MDRD) Non-Af 83 BUN/Creatinine Ratio 10.8 Glucose 126 H Calcium 9.5 Total Bilirubin 0.80 AST 61 H ALT 55 Alkaline Phosphatase 120 H Total Protein 7.7 Albumin 3.9 Globulin 3.8 Albumin/Globulin Ratio 1.0 Lipase 25 Urine Color Yellow Urine Clarity Clear Urine pH 6.5 Ur Specific [place] 1.010 Urine Protein Negative Urine Glucose (UA) Normal Urine Ketones Negative Urine Occult Blood Negative Urine Nitrite Negative Urine Bilirubin Negative Urine Urobilinogen Normal Ur Leukocyte Esterase Negative Urine RBC 0 SEEN Urine WBC 0-5 SEEN Ur Squamous Epith Cells 0-5 SEEN Urine Bacteria RARE Urine Mucus 0 SEEN Discharge Plan Triage Chief Complaint: Flank Pain ED Provider: Satya Page Dx/Rx/DC Orders Clinical Impression: Acute left flank pain, History of chronic pain Instructions: Abdominal Pain, ED Pain, Acute, Uncertain Cause Prescriptions: No Action rosuvastatin 5 mg tablet 5 mg PO DAILY Patient Comments: TAKE 1 TABLET BY MOUTH ONCE DAILY propranolol 10 mg tablet 10 mg PO DAILY Patient Comments: TAKE 1 TABLET BY MOUTH ONCE DAILY Nurtec ODT 75 mg tablet,disintegrating 75 mg PO ONCE PRN (Reason: migraine headache) Rx Instructions: as a single dose Qulipta 60 mg tablet 60 mg PO DAILY prednisone 10 mg tablet 10 mg PO QDAY 10 Days Qty: 28 0RF Rx Instructions: Take 4 tabs once daily days 1-3, 3 tabs once daily days 4-6, 2 tabs once daily days 7-9 and 1 tab once day 10. triamcinolone acetonide [Nasacort] 55 mcg aerosol,spray 2 spray intranasal QDAY Qty: 16.9 0RF Rx Instructions: administer into each nostril omeprazole 40 mg Capsule,Delayed Release(Dr/Ec) 40 mg PO BID escitalopram oxalate [Lexapro] 20 mg Tablet 20 mg PO DAILY quetiapine 50 mg tablet extended release 24 hr 100 mg PO QHS tizanidine 4 mg tablet 4 mg PO TID PRN (Reason: MUSCLE SPASMS ) Patient Comments: PT STATES THAT THEY USUALLY TAKE ALL THREE TABLETS TOGETHER ONCE DAILY AT BEDTIME BECAUSE IT MAKES THEM DROWSY ( OF 10-28-23) hydrocodone-acetaminophen 5-325 mg tablet 1 tab PO Q4H PRN PRN (Reason: Pain) 2 Days Qty: 10 0RF ondansetron 4 mg tablet,disintegrating 4 mg PO Q8H PRN PRN (Reason: Nausea) Qty: 10 0RF phenazopyridine [Pyridium] 200 mg tablet 200 mg PO TID Qty: 6 0RF Primary Care Provider: Dean Varghese Referrals: Dean Varghese DO [Primary Care Provider] - As soon as possible Activity Restrictions/Additional Instructions: Your labs were normal. There is no signs of urinary tract infection nor any signs of acute kidney stone. Call and follow-up with your doctor if not improving. Print Language: Greenlandic Disposition Disposition: Home, Self Care
[2024-08-03 21:05] LABS: Mucous, Urine 0 SEEN /hpf (<or=2+); Red Blood Cells-Urine 0 SEEN /hpf (0-5)
[2024-08-03 21:07] LABS: Color, Urine Yellow (Yellow); Glucose, Dipstick Normal (Normal); Ketone-Dipstick Negative (Negative); Leukocyte Esterase-Dipstick Negative /ul (Negative); Nitrite-Dipstick Negative (Negative); Occult Blood-Urine Negative /ul (Negative); Protein-Dipstick Negative (Negative); Urine Bilirubin Dipstick Negative (Negative); Urine Clarity Clear (Clear); Urine Urobilinogen Normal (Normal); Urine pH 6.5 (5.0 - 8.0)
[2024-08-03 21:25] LABS: Absolute Neutrophil Count 3.4 X10^3/uL (2.0-7.7); Basophil# 0.02 X10^3/uL; Basophil% 0.3 % (0-1); Eosinophil# 0.06 X10^3/uL; Eosinophils% 0.9 % (0-5); Hematocrit 38.8 % (37-47); Hemoglobin 12.9 g/dL (12.0-15.0); Lymphocyte % 39.1 % (19-41); Mean Corp Hgb Conc 33.2 g/dL (32-36); Mean Corpuscular Hgb 30.1 pg (27.0-32.0); Mean Corpuscular Volume 90.4 fL (81-99); Mean Platelet Vol. 11.2 fl (6.2-12.0); Monocyte# 0.39 X10^3/uL; Monocyte% 6.1 % (0-10); NRBC Flagged by Analyzer 0 % (0-5); Neutrophil % 53.1 % (47-70); POSITIVE COUNT YES; Platelet Count 202 K/mm3 (150-450); RBC Distribution Width CV 14.5 % (11.6-14.6); RBC Distribution Width SD 47.8 fl (35.1-43.9); Red Blood Count 4.29 M/mm3 (4.2-5.4); White Blood Count 6.4 K/mm3 (4.4-11.0)
[2024-08-03 21:29] LABS: Squamous Epithelial Cells - UA 0-5 SEEN /hpf (5-10); White Blood Cells 0-5 SEEN /hpf (0-5)
--- NOTE | 2024-08-03 21:30 | ED.RN ---
This RN went in to the pt room to ask her if she would like someone else to try for an IV since a previous nurse tried to get one 3 times. The patient did want an IV however, no fluids were ordered and the zofran ordered can be changed to PO. This RN spoke with Dr Page and he agrees to do oral zofran because we did get the blood but no IV.
[2024-08-03 21:31] LABS: Bacteria RARE /hpf (None Seen)
[2024-08-03] MEDS: Ondansetron ODT 4 MG Tablet PO (21:35)
[2024-08-03 21:47] LABS: AST(SGOT) 61 U/L (15-37); Alanine Aminotransfer ALT/SGPT 55 U/L (13-56); Albumin, Serum 3.9 g/dL (3.2-5.0); Alkaline Phosphatase 120 U/L (45-117); Anion Gap 9 (5-15); BUN 9 mg/dL (7-18); BUN/Creat Ratio 10.8 RATIO (10-20); Calcium,Total 9.5 mg/dL (8.5-10.1); Chloride 109 mmol/L (98-107); Creatinine, Serum 0.84 mg/dL (0.55-1.02); EST Glomerular Filtration Rate 83 mL/min (>60); Est Glom Filt Rate - Afr Amer 100 mL/min (>60); Estimated Creatinine Clearance 106.03 ml/min; Globulin 3.8 g/dL (2.2-4.2); Glucose 126 mg/dL (74-106); Lipase 25 U/L (13-75); Potassium 3.7 mmol/L (3.5-5.1); Protein, Total 7.7 g/dL (6.4-8.2); Sodium Level 138 mmol/L (136-145)
[2024-08-03 22:22] LABS: Differential Comment SCANNED; Differential Indicated SCAN CRITERIA MET
--- NOTE | 2024-08-03 22:54 | ED.RN ---
Pt stated my primary care doctor is the only one that listens to me. This RN states Im sorry, all of your labs looked great. Please keep your appt with your PCP
== END 2024-08-03 22:50 | disposition home or self-care (01) ==
PROVIDERS: Emergency Provider Emergency Medicine; Referring Provider Emergency Medicine; Visit Provider Emergency Medicine
DX: R10.9 Unspecified abdominal pain (principal); K74.60 Unspecified cirrhosis of liver; F31.9 Bipolar disorder, unspecified; R11.2 Nausea with vomiting, unspecified; I10 Essential (primary) hypertension; K21.9 Gastro-esophageal reflux disease without esophagitis; E78.00 Pure hypercholesterolemia, unspecified; M79.7 Fibromyalgia; G89.29 Other chronic pain; G43.909 Migraine, unspecified, not intractable, without status migrainosus; F17.290 Nicotine dependence, other tobacco product, uncomplicated; Z88.5 Allergy status to narcotic agent; Z88.1 Allergy status to other antibiotic agents; Z88.6 Allergy status to analgesic agent; Z85.41 Personal history of malignant neoplasm of cervix uteri; Z90.49 Acquired absence of other specified parts of digestive tract; Z90.710 Acquired absence of both cervix and uterus; Z79.899 Other long term (current) drug therapy
CPT/HCPCS: 80053; 81001; 83690; 85025; 99282

== ENCOUNTER 2024-11-04 21:03 | Emergency (ER) | payer MEDICAID, SELFPAY ==
[2024-11-04 21:04] VITALS: BP 118/96; PULSE 90; RESP 18; TEMP 36.7; O2SAT 98; BMI 34.7
--- NOTE | 2024-11-04 21:22 | EDS_ITS ---
HPI History of Present Illness Chief Complaint: Nausea/Vomiting/Diarrhea Informant: patient, spouse/S.O. and family Narrative Narrative: Presents for evaluation of abdominal pain and vomiting. Patient diagnosed with gastroparesis this past August. Symptoms started then. Intermittent diarrhea nonbloody. She states this past August had upper endoscopy by Dr. Elliott at [facility] she states gastric ulcers were improving there is gastritis she is on pantoprazole twice a day she was on Carafate. She has had 2 gastric emptying studies reported diagnosing her gastroparesis. She denies diabetes history. She states she had pancreatitis right before Thanksgiving was hospitalized for 4 days. Denies alcohol history. Cholecystectomy in the past. Total hysterectomy in the past. Laparoscopic endometriosis surgery previously. Yesterday seen her PCP was told need to follow-up with her GI doctor. She was in the ED in [place] 3 days ago diagnosed with pyelonephritis she is on antibiotics. She states lab work and ultrasound was performed she has had multiple CTs. She states previous use of marijuana last use a year ago. Denies any current urinary symptoms denies fever chills or sweats. States symptoms with GI cocktail has helped in the past. With her gastroparesis history discussed any discussion with erythromycin or Reglan, she denies this. She had a soft bowel movement this morning. She states she has been vomiting for last 3 hours with no hematemesis. Prior similar symptoms: Yes PFSH PENDING SALE TO [facility] Medical History Right knee pain Avulsion fracture of lateral malleolus of right fibula Left renal stone Smoker Bilateral renal stones Wears glasses Wears dentures Alcohol use Marijuana use History of renal disease Fatty liver High cholesterol Easy bruising Restless legs Syncope Gastric reflux Environmental and seasonal allergies Leg cramps History of edema History of echocardiogram History of stress test Cardiology follow-up encounter Hypertension Peptic ulcer of stomach Migraine Chronic interstitial cystitis Endometriosis Bipolar disorder Anxiety Depression Back pain Conversion disorder History of cervical cancer Kidney stone Fibromyalgia Home Medications ?Medication ?Instructions ?Recorded ?Last Taken ?Type escitalopram oxalate 20 mg tablet 20 mg PO DAILY DEPRESSION 09/22/21 10/27/23 History (Lexapro) omeprazole 40 mg capsule,delayed 40 mg PO BID ACID REFLUX 09/22/21 10/27/23 History release quetiapine 50 mg tablet,extended 100 mg PO QHS MOOD 01/30/23 10/27/23 History release 24 hr tizanidine 4 mg tablet 4 mg PO TID PRN MUSCLE SPASMS 10/28/23 10/27/23 History propranolol 10 mg tablet 10 mg PO DAILY 12/12/23 Unknown History rosuvastatin 5 mg tablet 5 mg PO DAILY 12/12/23 Unknown History atogepant 60 mg tablet (Qulipta) 60 mg PO DAILY 04/21/24 Unknown History rimegepant 75 mg disintegrating 75 mg PO ONCE PRN migraine headache 04/21/24 Unknown History tablet (Nurtec ODT) triamcinolone acetonide 55 mcg 2 spray intranasal QDAY #16.9 mL 07/25/24 Unknown Rx nasal spray aerosol (Nasacort) ondansetron 4 mg disintegrating 4 mg PO Q8H PRN PRN Nausea #10 tabs 07/30/24 Unknown Rx tablet phenazopyridine 200 mg tablet 200 mg PO TID 6 doses #6 tabs 07/30/24 Unknown Rx (Pyridium) MAGIC MOUTH WASH (BMX) 180 mL 5 - 10 ml PO Q6H PRN PRN gastritis 11/04/24 Unknown Rx suspension #180 mL metoclopramide HCl 5 mg tablet 5 mg PO Q6H PRN nausea and 11/04/24 Unknown Rx (Reglan) vomiting #20 tabs ondansetron 4 mg disintegrating 4 mg PO Q8H PRN PRN Nausea #20 tabs 11/04/24 Unknown Rx tablet Allergy/AdvReac Type Severity Reaction Status Date / Time amitriptyline Allergy MUSCLE Verified 11/04/24 21:08 SPASMS Bleach (Sodium Hypochlorite) Allergy Hives Verified 11/04/24 21:08 codeine Allergy Hives Verified 11/04/24 21:08 ketorolac (From Toradol) Allergy Itching Verified 11/04/24 21:08 nitrofurantoin (From Allergy Anaphylaxis Verified 11/04/24 21:08 Macrodantin) NSAIDS (Non-Steroidal Allergy Other Verified 11/04/24 21:08 Anti-Inflamma doxycycline AdvReac Vomiting Verified 11/04/24 21:08 Family History Mother Hypertension Migraine Grandmother CVA (cerebral vascular accident) Grandfather Diabetes Father Myocardial infarction Surgical History History of cystoscopy S/P laparoscopic surgery History of hysterectomy Hx of cholecystectomy Social History household members: significant other Smoking Status: Current every day smoker tobacco type: e-cigarettes alcohol intake: current details: occasionally substance use type: does not use caffeine: Yes what type of physical activity do you participate in: walking frequency: 1-2 times per week seatbelt use: always do you feel safe at home: Yes additional social history: Single ROS ROS ED Constitutional Constitutional ED: Denies chills, fever(s) or sweats ENT ENT ED: Denies sore throat Cardiovascular Cardiovascular: Denies chest pain, leg edema, palpitations or racing heartbeat Respiratory/Chest Respiratory/Chest: Denies cough, dyspnea or dyspnea on exertion Gastrointestinal Gastrointestinal: Reports abdominal pain, nausea and vomiting; Denies diarrhea Genitourinary Genitourinary ED: Denies dysuria, hematuria or urinary frequency Musculoskeletal Musculoskeletal: Denies back pain, extremity pain or neck pain Integumentary Denies rash or wounds Neurologic Neurologic: Denies headache(s), paresthesias or weakness EXAM Physical Exam Const Vital Signs: 11/04/24 21:04 Temperature 98.0 F Temperature Source Temporal Pulse Rate 90 Respiratory Rate 18 Blood Pressure 118/96 H Blood Pressure Mean 103 Pulse Ox 98 Oxygen Delivery Method Room Air Positive well nourished and well developed General Appearance ED: well developed and NAD HEENT Reports dry mucous membranes HEENT Narrative: Mild dry mucosal membranes. normocephalic and atraumatic Mouth ED: Yes dry mucous membranes Mouth: dry mucous membranes Eyes General Eye ED: Yes normal appearance of both eyes Neck full ROM Chest Wall Chest: Negative for tenderness Resp normal respiratory effort and normal air movement Effort and Inspection: symmetric chest movement; Negative for respiratory distress Cardio regular rate, regular rhythm and no murmurs Peripheral Pulses: pulses 2+ throughout GI normal to inspection, nondistended, normoactive bowel sounds GI Narrative: Mild tenderness mid abdomen. Negative Aj's or McBurney's. No guarding or rebound. Palpation: Negative for guarding or rebound tenderness present Extremity normal to inspection General Extremety ED: Negative for edema or tenderness General Extremity: Negative for edema Neuro oriented x3 and no sensory deficits noted Sensorium / Orientation: awake and alert Skin no rashes or lesions noted and no wounds MDM MDM MDM Narrative Medical decision making narrative: Interventions / MDM: Differential diagnosis: Nausea and vomiting, history of gastroparesis Diagnosis considered but do not suspect: N/A My EKG interpretation: N/A Imaging independently reviewed and interpreted by myself: N/A External documents reviewed: N/A Test considered but not ordered:N/A ED course: Vomiting past 3 hours she has a nonsurgical abdomen. She denies any black or bloody stools. History of pancreatitis. Will check abdominal labs, with her gastroparesis history we will give Reglan and fluids. Will order GI cocktail and Pepcid. Will reevaluate. 2300: Clinically feeling better with medicines. Labs are stable urine only 25 leukocytes. She is on antibiotics. No pancreatitis normal creatinine. She states she does get improvement with GI cocktail will write a prescription to use as needed. Will place her on Reglan with her gastroparesis. Will refill her Zofran ODT. She is on pantoprazole twice a day. She will follow-up with her GI doctor. All questions were answered. Re-evaluation: stable Disposition discussed with patient/family/significant other: Patient and significant other Case discussed with consulting clinician: N/A This note was generated with [employer] dictation software. It may contain incorrect words, spelling, and punctuation that were not noted in checking the note before signing. Lab Data Labs: Laboratory Results - last 24 hr 11/04/24 11/04/24 21:30 21:31 WBC 7.6 RBC 3.96 L Hgb 12.1 Hct 35.8 L MCV 90.4 MCH 30.6 MCHC 33.8 RDW Std Deviation 42.3 RDW Coeff of Romario 12.9 Plt Count 228 MPV 11.3 Immature Gran % (Auto) 0.400 Neut % (Auto) 80.9 H Lymph % (Auto) 14.2 L [place] % (Auto) 4.1 Eos % (Auto) 0.3 Baso % (Auto) 0.1 Absolute Neuts (auto) 6.2 Absolute Lymphs (auto) 1.08 Nucleated RBC % 0 Sodium 139 Potassium 3.7 Chloride 111 H Carbon Dioxide 20.0 L Anion Gap 8 BUN 10 Creatinine 1.01 Estim Creat Clear Calc 83.01 Est GFR (MDRD) Af Amer 81 Est GFR (MDRD) Non-Af 67 BUN/Creatinine Ratio 9.9 L Glucose 143 H Calcium 9.6 Total Bilirubin 0.40 AST 49 H ALT 30 Alkaline Phosphatase 108 Total Protein 7.4 Albumin 3.8 Globulin 3.6 Albumin/Globulin Ratio 1.1 Lipase 37 Urine Color Yellow Urine Clarity Clear Urine pH 7.0 Ur Specific [place] 1.010 Urine Protein 30 H Urine Glucose (UA) Normal Urine Ketones Negative Urine Occult Blood 10 H Urine Nitrite Negative Urine Bilirubin 1 H Urine Urobilinogen 1 H Ur Leukocyte Esterase 25 H Urine RBC 0-5 SEEN Urine WBC 0-5 SEEN Ur Squamous Epith Cells 0-5 SEEN Ur Transition Epith Cell 0-5 SEEN Urine Bacteria 0 SEEN Urine Mucus 0 SEEN Urine Opiates Screen NEGATIVE Urine Methadone Screen NEGATIVE Ur Barbiturates Screen NEGATIVE Ur Phencyclidine Scrn NEGATIVE Ur Amphetamines Screen NEGATIVE MDMA (Ecstasy) Screen NEGATIVE U Benzodiazepines Scrn NEGATIVE Urine Cocaine Screen NEGATIVE U Cannabinoids Screen NEGATIVE Ur Drug Screen Comment Discharge Plan Triage Chief Complaint: Nausea/Vomiting/Diarrhea ED Provider: Felton Gregory Dx/Rx/DC Orders Clinical Impression: Nausea & vomiting, Nondiabetic gastroparesis Instructions: Gastroparesis, ED Vomiting (Adult) Prescriptions: New metoclopramide HCl [Reglan] 5 mg tablet 5 mg PO Q6H PRN (Reason: nausea and vomiting) Qty: 20 0RF ondansetron 4 mg tablet,disintegrating 4 mg PO Q8H PRN PRN (Reason: Nausea) Qty: 20 0RF MAGIC MOUTH WASH (BMX) 180 mL suspension 5 - 10 ml PO Q6H PRN PRN (Reason: gastritis) Qty: 180 0RF Rx Instructions: diphenhydramine 12.5 mg/5 mL oral liquid 60 mL; aluminum-mag hydroxide- simethicone 400 mg-400 mg-40 mg/5 mL oral susp 60 mL; Lidocaine Viscous 2 % mucosal solution 60 mL; Per 180 mL No Action rosuvastatin 5 mg tablet 5 mg PO DAILY Patient Comments: TAKE 1 TABLET BY MOUTH ONCE DAILY propranolol 10 mg tablet 10 mg PO DAILY Patient Comments: TAKE 1 TABLET BY MOUTH ONCE DAILY Nurtec ODT 75 mg tablet,disintegrating 75 mg PO ONCE PRN (Reason: migraine headache) Rx Instructions: as a single dose Qulipta 60 mg tablet 60 mg PO DAILY triamcinolone acetonide [Nasacort] 55 mcg aerosol,spray 2 spray intranasal QDAY Qty: 16.9 0RF Rx Instructions: administer into each nostril omeprazole 40 mg Capsule,Delayed Release(Dr/Ec) 40 mg PO BID escitalopram oxalate [Lexapro] 20 mg Tablet 20 mg PO DAILY quetiapine 50 mg tablet extended release 24 hr 100 mg PO QHS tizanidine 4 mg tablet 4 mg PO TID PRN (Reason: MUSCLE SPASMS ) Patient Comments: PT STATES THAT THEY USUALLY TAKE ALL THREE TABLETS TOGETHER ONCE DAILY AT BEDTIME BECAUSE IT MAKES THEM DROWSY ( OF 10-28-23) ondansetron 4 mg tablet,disintegrating 4 mg PO Q8H PRN PRN (Reason: Nausea) Qty: 10 0RF phenazopyridine [Pyridium] 200 mg tablet 200 mg PO TID Qty: 6 0RF Primary Care Provider: Dean Varghese Referrals: Dean Varghese DO [Primary Care Provider] - 3-5 Days Activity Restrictions/Additional Instructions: Labs stable no pancreatitis normal renal function. Continue pantoprazole. Use Reglan as needed for your gastroparesis history. Zofran as needed. Follow-up with your PCP and your GI doctor. Print Language: Tuvaluan Disposition Disposition: Home, Self Care Discharge Date/Time: 11/04/24 23:33
[2024-11-04 21:38] LABS: Absolute Lymphocyte Count 1.08 X10^3/uL (0.83-4.51); Absolute Neutrophil Count 6.2 X10^3/uL (2.0-7.7); Basophil# 0.01 X10^3/uL; Basophil% 0.1 % (0-1); Eosinophil# 0.02 X10^3/uL; Eosinophils% 0.3 % (0-5); Hematocrit 35.8 % (37-47); Hemoglobin 12.1 g/dL (12.0-15.0); Lymphocyte # 1.08 X10^3/ul (0.83-4.51); Lymphocyte % 14.2 % (19-41); Mean Corp Hgb Conc 33.8 g/dL (32-36); Mean Corpuscular Hgb 30.6 pg (27.0-32.0); Mean Corpuscular Volume 90.4 fL (81-99); Mean Platelet Vol. 11.3 fl (6.2-12.0); Monocyte# 0.31 X10^3/uL; Monocyte% 4.1 % (0-10); NRBC Flagged by Analyzer 0 % (0-5); Neutrophil # 6.17 X10^3/uL (2.7-7.7); Neutrophil % 80.9 % (47-70); Platelet Count 228 K/mm3 (150-450); RBC Distribution Width CV 12.9 % (11.6-14.6); RBC Distribution Width SD 42.3 fl (35.1-43.9); Red Blood Count 3.96 M/mm3 (4.2-5.4); White Blood Count 7.6 K/mm3 (4.4-11.0)
[2024-11-04 21:39] LABS: Bacteria 0 SEEN /hpf (None Seen); Mucous, Urine 0 SEEN /hpf (<or=2+)
[2024-11-04] MEDS: 0.9% Normal Saline (1000mL) 1,000 ML 999 ML IV (21:40)
[2024-11-04] MEDS: Metoclopramide 10 MG/2 ML Vial 5 MG IV (21:41)
[2024-11-04] MEDS: Mag Hydrox/Al Hydrox/Simeth 30 ML UDC PO (21:42)
[2024-11-04] MEDS: Lidocaine 2% Viscous15 ML UDC 15 ML PO (21:42)
[2024-11-04 21:43] LABS: Color, Urine Yellow (Yellow); Glucose, Dipstick Normal (Normal); Ketone-Dipstick Negative (Negative); Leukocyte Esterase-Dipstick 25 /ul (Negative); Nitrite-Dipstick Negative (Negative); Occult Blood-Urine 10 /ul (Negative); Protein-Dipstick 30 mg/dl (Negative); Urine Clarity Clear (Clear); Urine Urobilinogen 1 mg/dl (Normal)
[2024-11-04] MEDS: Famotidine 200 MG/20 ML MDV 20 MG in 0.9% Normal Saline (Pres. free 8 ML 300 MG IV (21:46)
[2024-11-04 21:49] LABS: Amphetamine Urine NEGATIVE (<1000 ng/mL); Barbiturate Urine NEGATIVE (< 200 ng/mL); Benzodiazepine Urine NEGATIVE (< 200 ng/mL); Cocaine Urine NEGATIVE (< 300 ng/mL); Ecstacy Urine NEGATIVE (< 500 ng/mL); Methadone Urine NEGATIVE (< 300 ng/mL); Opiates Urine NEGATIVE (< 300 ng/mL); PCP Urine NEGATIVE (< 25 ng/mL); THC Urine NEGATIVE (< 50 ng/mL); Vista UDS pH Range 7
[2024-11-04 21:53] LABS: ALB/GLOB Ratio 1.1 RATIO (0.9-2.4); AST(SGOT) 49 U/L (15-37); Alanine Aminotransfer ALT/SGPT 30 U/L (13-56); Albumin, Serum 3.8 g/dL (3.2-5.0); Alkaline Phosphatase 108 U/L (45-117); Anion Gap 8 (5-15); BUN 10 mg/dL (7-18); BUN/Creat Ratio 9.9 RATIO (10-20); Calcium,Total 9.6 mg/dL (8.5-10.1); Chloride 111 mmol/L (98-107); Creatinine, Serum 1.01 mg/dL (0.55-1.02); EST Glomerular Filtration Rate 67 mL/min (>60); Est Glom Filt Rate - Afr Amer 81 mL/min (>60); Estimated Creatinine Clearance 83.01 ml/min; Globulin 3.6 g/dL (2.2-4.2); Glucose 143 mg/dL (74-106); Lipase 37 U/L (13-75); Potassium 3.7 mmol/L (3.5-5.1); Protein, Total 7.4 g/dL (6.4-8.2); Sodium Level 139 mmol/L (136-145)
[2024-11-04 22:11] LABS: Urine Bilirubin Dipstick 1 mg/dL (Negative)
[2024-11-04 22:13] LABS: Red Blood Cells-Urine 0-5 SEEN /hpf (0-5); Squamous Epithelial Cells - UA 0-5 SEEN /hpf (5-10); Transitional Epithelial - Ur 0-5 SEEN /hpf (0-5); White Blood Cells 0-5 SEEN /hpf (0-5)
[2024-11-04 23:04] VITALS: BP 112/74; PULSE 60; RESP 16; O2SAT 99
== END 2024-11-04 23:33 | disposition home or self-care (01) ==
PROVIDERS: Emergency Provider Emergency Medicine; Visit Provider Emergency Medicine
DX: R11.2 Nausea with vomiting, unspecified (principal); F31.9 Bipolar disorder, unspecified; K31.84 Gastroparesis; K29.70 Gastritis, unspecified, without bleeding; I10 Essential (primary) hypertension; K21.9 Gastro-esophageal reflux disease without esophagitis; F41.9 Anxiety disorder, unspecified; M79.7 Fibromyalgia; E78.00 Pure hypercholesterolemia, unspecified; G25.81 Restless legs syndrome; F17.290 Nicotine dependence, other tobacco product, uncomplicated; Z88.1 Allergy status to other antibiotic agents; Z90.49 Acquired absence of other specified parts of digestive tract; Z87.11 Personal history of peptic ulcer disease; Z85.41 Personal history of malignant neoplasm of cervix uteri; Z87.19 Personal history of other diseases of the digestive system; Z79.899 Other long term (current) drug therapy; Z90.710 Acquired absence of both cervix and uterus
CPT/HCPCS: 80053; 80307; 81001; 83690; 85025; 96361; 96374; 96375; 99283; A4216

== ENCOUNTER 2024-11-06 22:08 | Emergency (ER) | payer MEDICAID, SELFPAY ==
[2024-11-06 22:09] VITALS: BP 114/75; PULSE 108; RESP 18; TEMP 36.6; O2SAT 97; BMI 35.2
--- NOTE | 2024-11-06 22:21 | EDS_ITS ---
HPI History of Present Illness Chief Complaint: Abd Pain [facility] Medical History Right knee pain Avulsion fracture of lateral malleolus of right fibula Left renal stone Smoker Bilateral renal stones Wears glasses Wears dentures Alcohol use Marijuana use History of renal disease Fatty liver High cholesterol Easy bruising Restless legs Syncope Gastric reflux Environmental and seasonal allergies Leg cramps History of edema History of echocardiogram History of stress test Cardiology follow-up encounter Hypertension Peptic ulcer of stomach Migraine Chronic interstitial cystitis Endometriosis Bipolar disorder Anxiety Depression Back pain Conversion disorder History of cervical cancer Kidney stone Fibromyalgia Home Medications ?Medication ?Instructions ?Recorded ?Last Taken ?Type escitalopram oxalate 20 mg tablet 20 mg PO DAILY DEPRESSION 09/22/21 10/27/23 History (Lexapro) quetiapine 50 mg tablet,extended 200 mg PO QHS MOOD 01/30/23 10/27/23 History release 24 hr tizanidine 4 mg tablet 4 mg PO TID PRN MUSCLE SPASMS 10/28/23 10/27/23 History propranolol 10 mg tablet 10 mg PO DAILY 12/12/23 Unknown History atogepant 60 mg tablet (Qulipta) 60 mg PO DAILY 04/21/24 Unknown History rimegepant 75 mg disintegrating 75 mg PO ONCE PRN migraine headache 04/21/24 Unknown History tablet (Nurtec ODT) triamcinolone acetonide 55 mcg 2 spray intranasal QDAY #16.9 mL 07/25/24 Unknown Rx nasal spray aerosol (Nasacort) ondansetron 4 mg disintegrating 4 mg PO Q8H PRN PRN Nausea #10 tabs 07/30/24 Unknown Rx tablet MAGIC MOUTH WASH (BMX) 180 mL 5 - 10 ml PO Q6H PRN PRN gastritis 11/04/24 Unknown Rx suspension #180 mL metoclopramide HCl 5 mg tablet 5 mg PO Q6H PRN nausea and 11/04/24 11/06/24 17:30 Rx (Reglan) vomiting #20 tabs oxycodone-acetaminophen 5 mg-325 1 tab PO Q4H PRN pain 11/06/24 Unknown History mg tablet (Percocet) pantoprazole 40 mg tablet,delayed 40 mg PO BID 11/06/24 Unknown History release potassium chloride 20 mEq 20 meq PO DAILY 11/06/24 Unknown History tablet,extended release(part/cryst) promethazine 25 mg tablet 25 mg PO TID PRN PRN 11/06/24 Unknown History nausea/vomiting quetiapine 200 mg tablet,extended 200 mg PO QPM 11/06/24 Unknown History release 24 hr sulfamethoxazole-trimethoprim 1 tab PO TID 11/06/24 Unknown History Allergy/AdvReac Type Severity Reaction Status Date / Time amitriptyline Allergy MUSCLE Verified 11/06/24 22:09 SPASMS Bleach (Sodium Hypochlorite) Allergy Hives Verified 11/06/24 22:09 codeine Allergy Hives Verified 11/06/24 22:09 ketorolac (From Toradol) Allergy Itching Verified 11/06/24 22:09 nitrofurantoin (From Allergy Anaphylaxis Verified 11/06/24 22:09 Macrodantin) NSAIDS (Non-Steroidal Allergy Other Verified 11/06/24 22:09 Anti-Inflamma doxycycline AdvReac Vomiting Verified 11/06/24 22:09 Family History Mother Hypertension Migraine Grandmother CVA (cerebral vascular accident) Grandfather Diabetes Father Myocardial infarction Surgical History History of cystoscopy S/P laparoscopic surgery History of hysterectomy Hx of cholecystectomy Social History household members: significant other Smoking Status: Current every day smoker tobacco type: e-cigarettes alcohol intake: current details: occasionally substance use type: does not use caffeine: Yes what type of physical activity do you participate in: walking frequency: 1-2 times per week seatbelt use: always do you feel safe at home: Yes additional social history: Single EXAM Physical Exam Const Vital Signs: 11/06/24 22:09 11/07/24 00:00 11/07/24 00:10 Temperature 97.9 F 98.0 F Temperature Source Temporal Pulse Rate 108 H 83 85 Respiratory Rate 18 16 16 Blood Pressure 114/75 105/75 105/75 Blood Pressure Mean 88 85 85 Pulse Ox 97 97 96 Oxygen Delivery Method Room Air Room Air MDM MDM MDM Narrative Medical decision making narrative: HISTORY OF PRESENT ILLNESS: 34year old female presents with abdominal pain. Notes months of nausea and vomiting as well as abdominal pain. No sign got worse. Started right mid abdomen and radiates to the left abdomen. She notes multiple episodes of nonbloody nonbilious vomitus. Denies fever. Denies chest pain. Denies changes to bowel or bladder habits. Denies any urinary complaints. Endorses taking home Reglan without improvement in symptoms. REVIEW OF SYSTEMS: All other systems reviewed and are negative except as noted in the history of present illness. At least 10 review of systems reviewed and are negative except as noted in history of present illness. PHYSICAL EXAM: Nursing triage notes reviewed, Vital signs reviewed Constitutional: please see mdm HENT: MMM Eyes: Pupils equal round and reactive to light, Extraocular muscles intact Neck: No stridor, no JVD, full neck ROM Lungs: Clear to auscultation, No wheezing or rales. No increased work of breathing, no conversational dyspnea, no accessory muscle use, no nasal flaring. No respiratory distress noted Heart: Regular rate and rhythm, No murmurs, No rubs and No gallops, 2+ distal pulses (radial, femoral, posterior tibial) in all extremities Abdomen: Soft, no rigidity, rebound or guarding, no obvious peritoneal signs, no palpable pulsatile abdominal masses, no auscultated abdominal bruit : No CVAT Extremities: No edema Neuro: No focal neurological deficits, cranial nerves II through XII intact, 5/5 strength in all extremities. Intact sensation to light touch in all extremities, 2+ reflexes bilateral patella tendons. Normal gait. No ataxia. Skin: No rash or lesions noted MEDICAL DECISION MAKING: Chief Complaint: abdominal pain External records reviewed: I reviewed the patient's prior imaging studies: Reviewed CT scan of the abdomen pelvis from 2023 which showed no acute findings Factors affecting care: hypertension, gastroparesis, interstitial cystitis, fatty liver, hyperlipidemia, fibromyalgia. Status post multiple abdominal surgeries including cholecystectomy, hysterectomy Social determinants of health:none History obtained from others: none Consults: none [facility] Narrative: The patient was initially hemodynamically stable, slightly mildly tachycardic rate of 108, afebrile and nontoxic-appearing she is on I considered the following differential diagnosis: AAA, small bowel obstruction, abdominal perforation, appendicitis, pancreatitis, hepatobiliary pathology (acute cholecystitis), mesenteric ischemia, abnormalities such as pyelonephritis, nephrolithiasis I treated the patient with 1 L normal saline, 20 mg of IV Pepcid and 5 mg IV Reglan. ALL IMAGES (IF OBTAINED) HAVE BEEN PERSONALLY REVIEWED AND INTERPRETED BY MYSELF. CBC without leukocytosis (makes an acute intra-abdominal perforation/obstruction less likely), no severe anemia, no thrombocytopenia. CMP without evidence of acute kidney injury, significant electrolyte abnormality, anion gap to suggest end organ hypo-perfusion, no evidence of metabolic acidosis with a normal bicarbonate, no evidence of hepatobiliary obstructive pathology. Urinalysis shows no evidence of urinary inflammation suggestive of UTI LFTs show no evidence of hepatobiliary pathology. While I considered ordering a urine test the patient status post hysterectomy and as such related complications are not of concern Upon reassessment patient repeat abdominal exam remained benign. She is able tolerate p.o. in the form of oxycodone. She is appropriate for discharge home I see nothing that would suggest an acute abdomen at this time. Based on history physical exam, risk factors, my suspicion for bowel obstruction, incarcerated hernia, perforated viscus, acute cholecystitis, appendicitis is very low. There is no evidence of peritonitis sepsis or toxicity at this time. I feel the patient can be managed as an outpatient with follow-up with her/his primary physician in the next 24 to 48 hours or soon as possible. Instructions have been given for the patient to return to the ED for worsening pain, anorexia, high fevers, intractable vomiting or bleeding. The patient and/or family, caregivers express understanding. The patient and/or family, caregivers agrees with the plan. Total critical care time today provided was at least 0 minutes. This excludes separately billable procedures. Critical care time (if documented) is secondary to the patient having high probability of clinically significant/life threatening deterioration in the patient's condition which required my urgent intervention. Shared decision making: I will have a discussion with the patient and or visitors regarding risk/benefits of further testing or admission. They will be made aware of of the risk/benefits inherent in this decision they will be given the opportunity to voice understanding. Impression: 1. Acute on chronic abdominal pain 2. History of gastroparesis 3. Nausea and vomiting Disposition: Discharge home Tej Najera DO This note was generated with [employer] dictation software. It may contain incorrect words, spelling, and punctuation that were not noted in review of the chart prior to signing. Lab Data Labs: Laboratory Results - last 24 hr 11/06/24 11/06/24 11/06/24 22:16 22:46 23:00 WBC 5.0 RBC 3.92 L Hgb 12.1 Hct 35.4 L MCV 90.3 MCH 30.9 MCHC 34.2 RDW Std Deviation 41.8 RDW Coeff of Romario 12.9 Plt Count 202 MPV 11.3 Immature Gran % (Auto) 0.400 Neut % (Auto) 66.4 Lymph % (Auto) 26.0 Fisher % (Auto) 5.6 Eos % (Auto) 1.4 Baso % (Auto) 0.2 Absolute Neuts (auto) 3.3 Absolute Lymphs (auto) 1.29 Nucleated RBC % 0 Sodium 140 Potassium 3.9 Chloride 110 H Carbon Dioxide 20.0 L Anion Gap 10 BUN 6 L Creatinine 1.04 H Estim Creat Clear Calc 81.20 Est GFR (MDRD) Af Amer 78 Est GFR (MDRD) Non-Af 64 BUN/Creatinine Ratio 5.8 L Glucose 177 H Calcium 8.9 Total Bilirubin 0.30 Direct Bilirubin 0.07 AST 45 H ALT 33 Alkaline Phosphatase 107 Total Protein 7.3 Albumin 3.6 Globulin 3.7 Lipase 29 Urine Color Straw Urine Clarity Clear Urine pH 7.0 Ur Specific Wilson 1.005 Urine Protein Negative Urine Glucose (UA) Normal Urine Ketones Negative Urine Occult Blood Negative Urine Nitrite Negative Urine Bilirubin Negative Urine Urobilinogen Normal Ur Leukocyte Esterase Negative Urine RBC 0 SEEN Urine WBC 0-5 SEEN Ur Squamous Epith Cells 5-10 SEEN Urine Bacteria RARE Urine Mucus RARE Discharge Plan Triage Chief Complaint: Abd Pain ED Provider: Tej Najera Dx/Rx/DC Orders Clinical Impression: Nausea & vomiting, Abdominal pain Instructions: Abdominal Pain Prescriptions: No Action propranolol 10 mg tablet 10 mg PO DAILY Patient Comments: TAKE 1 TABLET BY MOUTH ONCE DAILY Nurtec ODT 75 mg tablet,disintegrating 75 mg PO ONCE PRN (Reason: migraine headache) Rx Instructions: as a single dose Qulipta 60 mg tablet 60 mg PO DAILY triamcinolone acetonide [Nasacort] 55 mcg aerosol,spray 2 spray intranasal QDAY Qty: 16.9 0RF Rx Instructions: administer into each nostril escitalopram oxalate [Lexapro] 20 mg Tablet 20 mg PO DAILY quetiapine 50 mg tablet extended release 24 hr 200 mg PO QHS tizanidine 4 mg tablet 4 mg PO TID PRN (Reason: MUSCLE SPASMS ) Patient Comments: PT STATES THAT THEY USUALLY TAKE ALL THREE TABLETS TOGETHER ONCE DAILY AT BEDTIME BECAUSE IT MAKES THEM DROWSY ( OF 10-28-23) metoclopramide HCl [Reglan] 5 mg tablet 5 mg PO Q6H PRN (Reason: nausea and vomiting) Qty: 20 0RF MAGIC MOUTH WASH (BMX) 180 mL suspension 5 - 10 ml PO Q6H PRN PRN (Reason: gastritis) Qty: 180 0RF Rx Instructions: diphenhydramine 12.5 mg/5 mL oral liquid 60 mL; aluminum-mag hydroxide- simethicone 400 mg-400 mg-40 mg/5 mL oral susp 60 mL; Lidocaine Viscous 2 % mucosal solution 60 mL; Per 180 mL potassium chloride 20 mEq tablet,ER particles/crystals 20 meq PO DAILY pantoprazole 40 mg tablet,delayed release (DR/EC) 40 mg PO BID promethazine 25 mg tablet 25 mg PO TID PRN PRN (Reason: nausea/vomiting) quetiapine 200 mg tablet extended release 24 hr 200 mg PO QPM sulfamethoxazole-trimethoprim [Bactrim] 1 tab PO TID oxycodone-acetaminophen [Percocet] 5-325 mg tablet 1 tab PO Q4H PRN (Reason: pain) Patient Comments: patient needs to get it filled, currently out but has not made it to her pharmacy to pick it up ondansetron 4 mg tablet,disintegrating 4 mg PO Q8H PRN PRN (Reason: Nausea) Qty: 10 0RF Primary Care Provider: Dean Varghese Referrals: Friend,Cheikh, DO [Med Staff - Active Staff] - Activity Restrictions/Additional Instructions: Thank you for trusting us with your care today! Your labs, exam were reassuring. I do not suspect you are suffering from an acute life-threatening abdominal pathology. Please take Tylenol (2 pills, 650 mg), ibuprofen (2 pills, 400 mg) every 6 hours as needed for pain and fever control. Please take already prescribed Reglan for nausea vomiting control at home. Please return to the emergency department if your symptoms change or worsen. Please follow with Gastroenterology for further outpatient evaluation and management. Print Language: Maltese Disposition Disposition: Home, Self Care Discharge Date/Time: 11/07/24 00:18
[2024-11-06 22:59] LABS: Absolute Lymphocyte Count 1.29 X10^3/uL (0.83-4.51); Absolute Neutrophil Count 3.3 X10^3/uL (2.0-7.7); Basophil# 0.01 X10^3/uL; Basophil% 0.2 % (0-1); Eosinophil# 0.07 X10^3/uL; Eosinophils% 1.4 % (0-5); Hematocrit 35.4 % (37-47); Hemoglobin 12.1 g/dL (12.0-15.0); Lymphocyte # 1.29 X10^3/ul (0.83-4.51); Mean Corp Hgb Conc 34.2 g/dL (32-36); Mean Corpuscular Hgb 30.9 pg (27.0-32.0); Mean Corpuscular Volume 90.3 fL (81-99); Mean Platelet Vol. 11.3 fl (6.2-12.0); Monocyte# 0.28 X10^3/uL; Monocyte% 5.6 % (0-10); NRBC Flagged by Analyzer 0 % (0-5); Neutrophil # 3.29 X10^3/uL (2.7-7.7); Neutrophil % 66.4 % (47-70); Platelet Count 202 K/mm3 (150-450); RBC Distribution Width CV 12.9 % (11.6-14.6); RBC Distribution Width SD 41.8 fl (35.1-43.9); Red Blood Count 3.92 M/mm3 (4.2-5.4)
[2024-11-06] MEDS: Famotidine 200 MG/20 ML MDV 20 MG in 0.9% Normal Saline (Pres. free 8 ML 300 MG IV (22:59)
[2024-11-06] MEDS: Metoclopramide 10 MG/2 ML Vial 5 MG IV (22:59)
[2024-11-06] MEDS: 0.9% Normal Saline (1000mL) 1,000 ML 999 ML IV (22:59)
[2024-11-06 23:17] LABS: Anion Gap 10 (5-15); BUN 6 mg/dL (7-18); BUN/Creat Ratio 5.8 RATIO (10-20); Calcium,Total 8.9 mg/dL (8.5-10.1); Chloride 110 mmol/L (98-107); Creatinine, Serum 1.04 mg/dL (0.55-1.02); EST Glomerular Filtration Rate 64 mL/min (>60); Est Glom Filt Rate - Afr Amer 78 mL/min (>60); Glucose 177 mg/dL (74-106); Lipase 29 U/L (13-75); Potassium 3.9 mmol/L (3.5-5.1); Sodium Level 140 mmol/L (136-145)
[2024-11-06 23:21] LABS: Red Blood Cells-Urine 0 SEEN /hpf (0-5)
[2024-11-06 23:22] LABS: Color, Urine Straw (Yellow); Glucose, Dipstick Normal (Normal); Ketone-Dipstick Negative (Negative); Leukocyte Esterase-Dipstick Negative /ul (Negative); Nitrite-Dipstick Negative (Negative); Occult Blood-Urine Negative /ul (Negative); Protein-Dipstick Negative (Negative); Specific Gravity, Urine 1.005 (1.002-1.030); Urine Bilirubin Dipstick Negative (Negative); Urine Clarity Clear (Clear); Urine Urobilinogen Normal (Normal)
[2024-11-06] MEDS: oxyCODONE 5 MG Tablet PO (23:37)
[2024-11-06 23:43] LABS: Bacteria RARE /hpf (None Seen); Mucous, Urine RARE /hpf (<or=2+); Squamous Epithelial Cells - UA 5-10 SEEN /hpf (5-10); White Blood Cells 0-5 SEEN /hpf (0-5)
[2024-11-07] VITALS: BP 105/75; PULSE 83; RESP 16; O2SAT 97
[2024-11-07 00:03] LABS: AST(SGOT) 45 U/L (15-37); Alanine Aminotransfer ALT/SGPT 33 U/L (13-56); Albumin, Serum 3.6 g/dL (3.2-5.0); Alkaline Phosphatase 107 U/L (45-117); Bilirubin, Direct 0.07 mg/dL (0.00-0.30); Globulin 3.7 g/dL (2.2-4.2); Protein, Total 7.3 g/dL (6.4-8.2)
[2024-11-07 00:10] VITALS: BP 105/75; PULSE 85; RESP 16; TEMP 36.7; O2SAT 96
== END 2024-11-07 00:18 | disposition home or self-care (01) ==
PROVIDERS: Emergency Provider Emergency Medicine; Referring Provider Emergency Medicine; Visit Provider Emergency Medicine
DX: R10.9 Unspecified abdominal pain (principal); F31.9 Bipolar disorder, unspecified; G89.29 Other chronic pain; R11.2 Nausea with vomiting, unspecified; I10 Essential (primary) hypertension; F41.9 Anxiety disorder, unspecified; E78.5 Hyperlipidemia, unspecified; K76.0 Fatty (change of) liver, not elsewhere classified; K21.9 Gastro-esophageal reflux disease without esophagitis; K31.84 Gastroparesis; M79.7 Fibromyalgia; G43.909 Migraine, unspecified, not intractable, without status migrainosus; F17.290 Nicotine dependence, other tobacco product, uncomplicated; Z87.11 Personal history of peptic ulcer disease; Z85.41 Personal history of malignant neoplasm of cervix uteri; Z90.49 Acquired absence of other specified parts of digestive tract; Z90.710 Acquired absence of both cervix and uterus; Z79.899 Other long term (current) drug therapy
CPT/HCPCS: 80048; 80076; 81001; 83690; 85025; 96361; 96374; 96375; 99282; A4216

== ENCOUNTER 2024-11-09 23:37 | Emergency (ER) | payer MEDICAID, SELFPAY ==
[2024-11-09 23:38] VITALS: BP 157/112; PULSE 123; RESP 18; TEMP 35.8; O2SAT 100; BMI 36.0
--- NOTE | 2024-11-09 23:51 | EDS_ITS ---
HPI HPI - GI History of Present Illness Chief Complaint: Abd Pain Informant: patient Abdominal Pain/Flank Pain Onset: Today Context: Sudden Onset Timing: Continuous Quality: Stabbing Location: RUQ Worsened by: Movement Relieved by: Remaining Still Nausea/Vomiting/Emesis GI Symptom: Negative for Nausea or Vomiting Diarrhea/Melena/Hematochezia GI Symptom: Negative for Diarrhea, Melena or Hematochezia Associated Symptoms Associated Symptoms: Negative for Dysuria, Frequency or Hematuria Narrative Narrative: Patient presents with abdominal pain that began this morning. Patient states it began suddenly. Patient states her pain is mainly over the right upper abdomen. Patient states it is worse with movement. Patient states it is better when she keeps her knees flexed up. Patient describes her pain as stabbing. Patient denies any nausea or vomiting. Patient denies any diarrhea, melena, or hematochezia. Patient denies any urinary complaints. Patient denies any fevers or chills. PFSH [facility] Medical History Right knee pain Avulsion fracture of lateral malleolus of right fibula Left renal stone Smoker Bilateral renal stones Wears glasses Wears dentures Alcohol use Marijuana use History of renal disease Fatty liver High cholesterol Easy bruising Restless legs Syncope Gastric reflux Environmental and seasonal allergies Leg cramps History of edema History of echocardiogram History of stress test Cardiology follow-up encounter Hypertension Peptic ulcer of stomach Migraine Chronic interstitial cystitis Endometriosis Bipolar disorder Anxiety Depression Back pain Conversion disorder History of cervical cancer Kidney stone Fibromyalgia Home Medications ?Medication ?Instructions ?Recorded ?Last Taken ?Type escitalopram oxalate 20 mg tablet 20 mg PO DAILY DEPRESSION 09/22/21 10/27/23 History (Lexapro) quetiapine 50 mg tablet,extended 200 mg PO QHS MOOD 01/30/23 10/27/23 History release 24 hr tizanidine 4 mg tablet 4 mg PO TID PRN MUSCLE SPASMS 10/28/23 10/27/23 History propranolol 10 mg tablet 10 mg PO DAILY 12/12/23 Unknown History atogepant 60 mg tablet (Qulipta) 60 mg PO DAILY 04/21/24 Unknown History rimegepant 75 mg disintegrating 75 mg PO ONCE PRN migraine headache 04/21/24 Unknown History tablet (Nurtec ODT) triamcinolone acetonide 55 mcg 2 spray intranasal QDAY #16.9 mL 07/25/24 Unknown Rx nasal spray aerosol (Nasacort) ondansetron 4 mg disintegrating 4 mg PO Q8H PRN PRN Nausea #10 tabs 07/30/24 Unknown Rx tablet MAGIC MOUTH WASH (BMX) 180 mL 5 - 10 ml PO Q6H PRN PRN gastritis 11/04/24 Unknown Rx suspension #180 mL metoclopramide HCl 5 mg tablet 5 mg PO Q6H PRN nausea and 11/04/24 11/06/24 17:30 Rx (Reglan) vomiting #20 tabs oxycodone-acetaminophen 5 mg-325 1 tab PO Q4H PRN pain 11/06/24 Unknown History mg tablet (Percocet) pantoprazole 40 mg tablet,delayed 40 mg PO BID 11/06/24 Unknown History release potassium chloride 20 mEq 20 meq PO DAILY 11/06/24 Unknown History tablet,extended release(part/cryst) promethazine 25 mg tablet 25 mg PO TID PRN PRN 11/06/24 Unknown History nausea/vomiting quetiapine 200 mg tablet,extended 200 mg PO QPM 11/06/24 Unknown History release 24 hr sulfamethoxazole-trimethoprim 1 tab PO TID 11/06/24 Unknown History Allergy/AdvReac Type Severity Reaction Status Date / Time amitriptyline Allergy MUSCLE Verified 11/09/24 23:38 SPASMS Bleach (Sodium Hypochlorite) Allergy Hives Verified 11/09/24 23:38 codeine Allergy Hives Verified 11/09/24 23:38 ketorolac (From Toradol) Allergy Itching Verified 11/09/24 23:38 nitrofurantoin (From Allergy Anaphylaxis Verified 11/09/24 23:38 Macrodantin) NSAIDS (Non-Steroidal Allergy Other Verified 11/09/24 23:38 Anti-Inflamma doxycycline AdvReac Vomiting Verified 11/09/24 23:38 Family History Mother Hypertension Migraine Grandmother CVA (cerebral vascular accident) Grandfather Diabetes Father Myocardial infarction Surgical History History of cystoscopy S/P laparoscopic surgery History of hysterectomy Hx of cholecystectomy Social History household members: significant other Smoking Status: Current every day smoker tobacco type: e-cigarettes alcohol intake: current details: occasionally substance use type: does not use caffeine: Yes what type of physical activity do you participate in: walking frequency: 1-2 times per week seatbelt use: always do you feel safe at home: Yes additional social history: Single ROS ROS ED Constitutional Constitutional ED: Denies chills or fever(s) Eyes Eyes: Denies blurry vision or change in vision ENT ENT ED: Denies rhinorrhea or sore throat Cardiovascular Cardiovascular: Denies chest pain or palpitations Respiratory/Chest Respiratory/Chest: Denies cough or dyspnea Gastrointestinal Gastrointestinal: Reports abdominal pain; Denies diarrhea, nausea or vomiting Genitourinary Genitourinary ED: Denies dysuria or hematuria Musculoskeletal Musculoskeletal: Reports back pain; Denies neck pain Integumentary Denies abscess or rash Neurologic Neurologic: Reports headache(s); Denies weakness Allergic/Immunologic Allergic/Immunologic ED: Denies mouth swelling or urticaria EXAM Physical Exam Const Vital Signs: 11/09/24 23:38 11/10/24 01:37 Temperature 96.5 F L Temperature Source Temporal Pulse Rate 123 H 77 Respiratory Rate 18 18 Blood Pressure 157/112 H 100/52 L Blood Pressure Mean 127 68 Pulse Ox 100 99 Oxygen Delivery Method Room Air Room Air Positive well nourished and well developed Constitutional Narrative: Patient has a BMI of 36 General Appearance ED: well developed HEENT Reports moist mucous membranes Neck supple and no JVD Resp normal respiratory effort Cardio regular rate and regular rhythm GI non-distended Palpation: soft and tender RUQ; Negative for guarding or rebound tenderness present Neuro CN's II-XII intact bilaterally, moves all extremities and no sensory deficits noted Sensorium / Orientation: alert Motor Exam: strength 5/5 throughout Psych mental status grossly normal and thought process normal MDM MDM MDM Narrative Medical decision making narrative: Differential diagnosis includes choledocholithiasis, pancreatitis, gastritis, peptic ulcer disease, duodenal ulcer, colitis, viral illness, and electrolyte abnormality. CBC will be obtained to assess for leukocytosis and anemia. Comprehensive metabolic profile will be obtained to assess for hepatic function, renal function, and electrolyte abnormality. Lipase will be obtained to assess for pancreatitis. Lab Data Attestation: I reviewed the patient's lab results. Lab results narrative: CBC was reviewed. There is a slight anemia with a hemoglobin of 11.5 and hematocrit of 34.0. Comprehensive metabolic profile was reviewed. Creatinine was slightly elevated at 1.34. CO2 was slightly low at 20.0. Glucose was 155. AST was slightly elevated at 46. The remainder was within normal limits. Lipase was reviewed and was normal at 24. Urinalysis was reviewed. There is no evidence of urinary tract infection or hematuria. Labs: Laboratory Results - last 24 hr 11/10/24 11/10/24 00:35 00:40 WBC 5.3 RBC 3.74 L Hgb 11.5 L Hct 34.0 L MCV 90.9 MCH 30.7 MCHC 33.8 RDW Std Deviation 43.5 RDW Coeff of Romario 13.2 Plt Count 205 MPV 11.4 Immature Gran % (Auto) 0.200 Neut % (Auto) 54.8 Lymph % (Auto) 35.7 [place] % (Auto) 7.6 Eos % (Auto) 1.5 Baso % (Auto) 0.2 Absolute Neuts (auto) 2.9 Absolute Lymphs (auto) 1.89 Nucleated RBC % 0 Sodium 138 Potassium 4.3 Chloride 108 H Carbon Dioxide 20.0 L Anion Gap 11 BUN 7 Creatinine 1.34 H Estim Creat Clear Calc 63.82 Est GFR (MDRD) Af Amer 58 L Est GFR (MDRD) Non-Af 48 L BUN/Creatinine Ratio 5.2 L Glucose 155 H Calcium 9.0 Total Bilirubin 0.30 AST 46 H ALT 39 Alkaline Phosphatase 107 Total Protein 7.2 Albumin 3.5 Globulin 3.7 Albumin/Globulin Ratio 0.9 Lipase 24 Urine Color Yellow Urine Clarity Clear Urine pH 7.0 Ur Specific [place] 1.005 Urine Protein Negative Urine Glucose (UA) Normal Urine Ketones Negative Urine Occult Blood Negative Urine Nitrite Negative Urine Bilirubin Negative Urine Urobilinogen Normal Ur Leukocyte Esterase Negative Urine RBC 0 SEEN Urine WBC 0 SEEN Ur Squamous Epith Cells 5-10 SEEN Urine Bacteria 0 SEEN Urine Mucus 0 SEEN Radiography Diagnostic Testing: Clinical Impression(s) from Imaging Studies Abdomen/Pelvis CT 11/10/24 00:33 IMPRESSION: No acute findings. Hepatic steatosis. Electronically Signed: Traci Gonzalez MD at 1:59 EST , CT scan of the abdomen and pelvis was obtained. There is no acute abnormality noted. There is hepatic steatosis. There is no bowel obstruction or perforation. There is no choledocholithiasis. There is no free air or free fluid. This was interpreted by the radiologist and was also independently reviewed by myself. Treatment and Re-Evaluation :: Patient was given IV fluids, morphine, and Zofran. Patient was feeling better on reevaluation. Patient was able to ambulate in the hallway without difficult y. Patient was advised of her findings. Patient was instructed to follow-up with her primary care physician in 5 to 7 days for further evaluation. Patient understood and was agreeable with the plan. All questions were answered. Discharge Plan Triage Chief Complaint: Abd Pain ED Provider: Gage Joya Dx/Rx/DC Orders Clinical Impression: Abdominal pain, Body mass index (BMI) of 30.0 to 39.9 Instructions: ED Abdominal Pain Unkn Cause Fem Prescriptions: No Action propranolol 10 mg tablet 10 mg PO DAILY Patient Comments: TAKE 1 TABLET BY MOUTH ONCE DAILY Nurtec ODT 75 mg tablet,disintegrating 75 mg PO ONCE PRN (Reason: migraine headache) Rx Instructions: as a single dose Qulipta 60 mg tablet 60 mg PO DAILY triamcinolone acetonide [Nasacort] 55 mcg aerosol,spray 2 spray intranasal QDAY Qty: 16.9 0RF Rx Instructions: administer into each nostril escitalopram oxalate [Lexapro] 20 mg Tablet 20 mg PO DAILY quetiapine 50 mg tablet extended release 24 hr 200 mg PO QHS tizanidine 4 mg tablet 4 mg PO TID PRN (Reason: MUSCLE SPASMS ) Patient Comments: PT STATES THAT THEY USUALLY TAKE ALL THREE TABLETS TOGETHER ONCE DAILY AT BEDTIME BECAUSE IT MAKES THEM DROWSY ( OF 10-28-23) metoclopramide HCl [Reglan] 5 mg tablet 5 mg PO Q6H PRN (Reason: nausea and vomiting) Qty: 20 0RF MAGIC MOUTH WASH (BMX) 180 mL suspension 5 - 10 ml PO Q6H PRN PRN (Reason: gastritis) Qty: 180 0RF Rx Instructions: diphenhydramine 12.5 mg/5 mL oral liquid 60 mL; aluminum-mag hydroxide- simethicone 400 mg-400 mg-40 mg/5 mL oral susp 60 mL; Lidocaine Viscous 2 % mucosal solution 60 mL; Per 180 mL potassium chloride 20 mEq tablet,ER particles/crystals 20 meq PO DAILY pantoprazole 40 mg tablet,delayed release (DR/EC) 40 mg PO BID promethazine 25 mg tablet 25 mg PO TID PRN PRN (Reason: nausea/vomiting) quetiapine 200 mg tablet extended release 24 hr 200 mg PO QPM sulfamethoxazole-trimethoprim [Bactrim] 1 tab PO TID oxycodone-acetaminophen [Percocet] 5-325 mg tablet 1 tab PO Q4H PRN (Reason: pain) Patient Comments: patient needs to get it filled, currently out but has not made it to her pharmacy to pick it up ondansetron 4 mg tablet,disintegrating 4 mg PO Q8H PRN PRN (Reason: Nausea) Qty: 10 0RF Primary Care Provider: Dean Varghese Referrals: Dean Varghese DO [Primary Care Provider] - 5-7 Days Print Language: Slovenian Disposition Disposition: Home, Self Care
--- NOTE | 2024-11-10 00:33 | CT_ITS ---
EXAM: CT Abdomen And Pelvis W/ Contrast Injection HISTORY: Abdominal pain TECHNIQUE: Routine protocol CT abdomen pelvis. IV Contrast: IV 100mL [id number] . Oral Contrast: without. Sagittal and coronal images were reconstructed. RADIATION DOSAGE (If Supplied By Facility): CTDIvol = ( 28.21 ) mGy, DLP = ( 1220.49 ) mGycm Individualized dose optimization techniques were used for this CT. COMPARISON: CT abdomen pelvis 06/20/2024. LIMITATIONS: None. FINDINGS: LOWER CHEST: Minimal dependent atelectasis in the lung bases. LIVER: Fatty infiltration. GALLBLADDER/BILE DUCTS: Gallbladder surgically absent. PANCREAS: Unremarkable. SPLEEN: Unremarkable. ADRENAL GLANDS: Unremarkable. KIDNEYS / URETERS: Unremarkable. BOWEL / MESENTERY: Unremarkable. No bowel obstruction. APPENDIX: Identified and normal. No evidence of acute appendicitis. PERITONEUM: No free air. No free fluid. VESSELS: Abdominal aorta is normal caliber. RETROPERITONEUM: Unremarkable. REPRODUCTIVE ORGANS: Uterus not identified. BLADDER: Unremarkable. ABDOMINAL WALL: Unremarkable. BONES: No acute abnormality. OTHER: None. CT/Abdomen/Pelvis W IV Cont ONLY IMPRESSION: No acute findings. Hepatic steatosis. Electronically Signed: Traci Gonzalez MD at 1:59 EST ,
[2024-11-10 00:41] LABS: Bacteria 0 SEEN /hpf (None Seen); Mucous, Urine 0 SEEN /hpf (<or=2+); Red Blood Cells-Urine 0 SEEN /hpf (0-5); White Blood Cells 0 SEEN /hpf (0-5)
[2024-11-10 00:46] LABS: Absolute Lymphocyte Count 1.89 X10^3/uL (0.83-4.51); Absolute Neutrophil Count 2.9 X10^3/uL (2.0-7.7); Basophil# 0.01 X10^3/uL; Basophil% 0.2 % (0-1); Eosinophil# 0.08 X10^3/uL; Eosinophils% 1.5 % (0-5); Hemoglobin 11.5 g/dL (12.0-15.0); Lymphocyte # 1.89 X10^3/ul (0.83-4.51); Lymphocyte % 35.7 % (19-41); Mean Corp Hgb Conc 33.8 g/dL (32-36); Mean Corpuscular Hgb 30.7 pg (27.0-32.0); Mean Corpuscular Volume 90.9 fL (81-99); Mean Platelet Vol. 11.4 fl (6.2-12.0); Monocyte% 7.6 % (0-10); NRBC Flagged by Analyzer 0 % (0-5); Neutrophil % 54.8 % (47-70); Platelet Count 205 K/mm3 (150-450); RBC Distribution Width CV 13.2 % (11.6-14.6); RBC Distribution Width SD 43.5 fl (35.1-43.9); Red Blood Count 3.74 M/mm3 (4.2-5.4); White Blood Count 5.3 K/mm3 (4.4-11.0)
[2024-11-10 00:47] LABS: Color, Urine Yellow (Yellow); Glucose, Dipstick Normal (Normal); Ketone-Dipstick Negative (Negative); Leukocyte Esterase-Dipstick Negative /ul (Negative); Nitrite-Dipstick Negative (Negative); Occult Blood-Urine Negative /ul (Negative); Protein-Dipstick Negative (Negative); Specific Gravity, Urine 1.005 (1.002-1.030); Urine Bilirubin Dipstick Negative (Negative); Urine Clarity Clear (Clear); Urine Urobilinogen Normal (Normal)
[2024-11-10] MEDS: Ondansetron 4 MG/2 ML Vial IV (00:49)
[2024-11-10] MEDS: 0.9% Normal Saline (1000mL) 1,000 ML 999 ML IV (00:49)
[2024-11-10] MEDS: Morphine 2 MG/ML Syringe IV (00:49)
[2024-11-10 01:03] LABS: ALB/GLOB Ratio 0.9 RATIO (0.9-2.4); AST(SGOT) 46 U/L (15-37); Alanine Aminotransfer ALT/SGPT 39 U/L (13-56); Albumin, Serum 3.5 g/dL (3.2-5.0); Alkaline Phosphatase 107 U/L (45-117); Anion Gap 11 (5-15); BUN 7 mg/dL (7-18); BUN/Creat Ratio 5.2 RATIO (10-20); Chloride 108 mmol/L (98-107); Creatinine, Serum 1.34 mg/dL (0.55-1.02); EST Glomerular Filtration Rate 48 mL/min (>60); Est Glom Filt Rate - Afr Amer 58 mL/min (>60); Estimated Creatinine Clearance 63.82 ml/min; Globulin 3.7 g/dL (2.2-4.2); Glucose 155 mg/dL (74-106); Lipase 24 U/L (13-75); Potassium 4.3 mmol/L (3.5-5.1); Protein, Total 7.2 g/dL (6.4-8.2); Sodium Level 138 mmol/L (136-145)
[2024-11-10 01:07] LABS: Squamous Epithelial Cells - UA 5-10 SEEN /hpf (5-10)
[2024-11-10 01:37] VITALS: BP 100/52; PULSE 77; RESP 18; O2SAT 99
[2024-11-10 02:36] VITALS: BP 97/78; PULSE 78; RESP 16; TEMP 36.9; O2SAT 100
== END 2024-11-10 02:41 | disposition home or self-care (01) ==
PROVIDERS: Emergency Provider Emergency Medicine; Visit Provider Emergency Medicine
DX: R10.11 Right upper quadrant pain (principal); F31.9 Bipolar disorder, unspecified; D64.9 Anemia, unspecified; I10 Essential (primary) hypertension; K21.9 Gastro-esophageal reflux disease without esophagitis; K76.0 Fatty (change of) liver, not elsewhere classified; F41.9 Anxiety disorder, unspecified; M79.7 Fibromyalgia; E78.00 Pure hypercholesterolemia, unspecified; G25.81 Restless legs syndrome; G43.909 Migraine, unspecified, not intractable, without status migrainosus; F17.290 Nicotine dependence, other tobacco product, uncomplicated; Z88.1 Allergy status to other antibiotic agents; Z87.11 Personal history of peptic ulcer disease; Z90.49 Acquired absence of other specified parts of digestive tract; Z85.41 Personal history of malignant neoplasm of cervix uteri; Z79.899 Other long term (current) drug therapy
CPT/HCPCS: 74177; 80053; 81001; 83690; 85025; 96361; 96374; 96375; 99284; Q9967; A4216; J2405

== ENCOUNTER 2024-11-11 20:16 | Emergency (ER) | payer MEDICAID, SELFPAY ==
[2024-11-11 20:16] VITALS: BP 154/103; PULSE 108; RESP 16; TEMP 36.4; O2SAT 99; BMI 35.0
[2024-11-11] MEDS: 0.9% Normal Saline (1000mL) 1,000 ML 999 ML IV (21:13)
[2024-11-11] MEDS: Metoclopramide 10 MG/2 ML Vial IV (21:13)
[2024-11-11 21:28] LABS: Basophil# 0.01 X10^3/uL; Basophil% 0.2 % (0-1); Eosinophil# 0.07 X10^3/uL; Eosinophils% 1.1 % (0-5); Hematocrit 39.3 % (37-47); Hemoglobin 12.8 g/dL (12.0-15.0); Mean Corp Hgb Conc 32.6 g/dL (32-36); Mean Corpuscular Volume 92.3 fL (81-99); Mean Platelet Vol. 11.8 fl (6.2-12.0); Monocyte# 0.47 X10^3/uL; Monocyte% 7.4 % (0-10); NRBC Flagged by Analyzer 0 % (0-5); Neutrophil # 3.01 X10^3/uL (2.7-7.7); Neutrophil % 47.1 % (47-70); Platelet Count 217 K/mm3 (150-450); RBC Distribution Width CV 13.1 % (11.6-14.6); RBC Distribution Width SD 43.9 fl (35.1-43.9); Red Blood Count 4.26 M/mm3 (4.2-5.4); White Blood Count 6.4 K/mm3 (4.4-11.0)
[2024-11-11] MEDS: Morphine 4 MG/ML Syringe IV ×2 (21:32→23:31)
[2024-11-11 22:03] LABS: Lactic Acid 1.3 mmol/L (0.4-1.9)
[2024-11-11 22:12] LABS: Glucose 102 mg/dL (74-106)
[2024-11-11 22:13] LABS: ALB/GLOB Ratio 0.9 RATIO (0.9-2.4); AST(SGOT) 71 U/L (15-37); Albumin, Serum 3.8 g/dL (3.2-5.0); BUN 5 mg/dL (7-18); Calcium,Total 9.9 mg/dL (8.5-10.1); Creatinine, Serum 0.97 mg/dL (0.55-1.02); Estimated Creatinine Clearance 86.91 ml/min; Globulin 4.1 g/dL (2.2-4.2); Lipase 25 U/L (13-75); Protein, Total 7.9 g/dL (6.4-8.2)
[2024-11-11 22:14] LABS: Alanine Aminotransfer ALT/SGPT 49 U/L (13-56); Alkaline Phosphatase 126 U/L (45-117); Chloride 109 mmol/L (98-107); Potassium 4.9 mmol/L (3.5-5.1); Sodium Level 136 mmol/L (136-145)
[2024-11-11 22:15] LABS: Anion Gap 9 (5-15)
[2024-11-11 22:16] VITALS: BP 144/100; PULSE 94; RESP 16; O2SAT 98
[2024-11-12 00:04] VITALS: BP 138/95; PULSE 94; RESP 16; TEMP 36.6; O2SAT 99
--- NOTE | 2024-11-12 00:14 | EDS_ITS ---
HPI History of Present Illness Chief Complaint: Nausea/Vomiting Narrative Narrative: Patient is a 34-year-old male with past medical history of gastroparesis, pancreatitis, alcohol use, marijuana use, hypertension, bipolar disorder, anxiety, depression, fibromyalgia who presented to the emergency department with a chief complaint of abdominal pain. Patient states that this abdominal pain has been going on since around Thanksgiving time and even before. She states that she has been seen and evaluated multiple times and was diagnosed with gastroparesis. She states that she has been given Reglan, GI cocktail and several other medications for home to try to control her symptoms. States that she was recently referred to a gastroparesis specialist at [facility] however has not been able to be seen by them currently. Patient states that she has been had nausea vomiting for the past few days not tolerating oral intake. States that she was told that she was offered to have a feeding tube placed since she has lost weight and cannot keep eating down patient states that she declined this before being seen by the specialist at [facility]. Patient states that she could not take the pain anymore tonight therefore she came here further evaluation management. [facility] Medical History Gastroparesis Pancreatitis Right knee pain Avulsion fracture of lateral malleolus of right fibula Left renal stone Smoker Bilateral renal stones Wears glasses Wears dentures Alcohol use Marijuana use History of renal disease Fatty liver High cholesterol Easy bruising Restless legs Syncope Gastric reflux Environmental and seasonal allergies Leg cramps History of edema History of echocardiogram History of stress test Cardiology follow-up encounter Hypertension Peptic ulcer of stomach Migraine Chronic interstitial cystitis Endometriosis Bipolar disorder Anxiety Depression Back pain Conversion disorder History of cervical cancer Kidney stone Fibromyalgia Home Medications ?Medication ?Instructions ?Recorded ?Last Taken ?Type escitalopram oxalate 20 mg tablet 20 mg PO DAILY DEPRESSION 09/22/21 10/27/23 History (Lexapro) quetiapine 50 mg tablet,extended 200 mg PO QHS MOOD 01/30/23 10/27/23 History release 24 hr tizanidine 4 mg tablet 4 mg PO TID PRN MUSCLE SPASMS 10/28/23 10/27/23 History propranolol 10 mg tablet 10 mg PO DAILY 12/12/23 Unknown History atogepant 60 mg tablet (Qulipta) 60 mg PO DAILY 06/27/24 Unknown History rimegepant 75 mg disintegrating 75 mg PO ONCE PRN migraine headache 04/21/24 Unknown History tablet (Nurtec ODT) triamcinolone acetonide 55 mcg 2 spray intranasal QDAY #16.9 mL 07/25/24 Unknown Rx nasal spray aerosol (Nasacort) ondansetron 4 mg disintegrating 4 mg PO Q8H PRN PRN Nausea #10 tabs 07/30/24 Unknown Rx tablet MAGIC MOUTH WASH (BMX) 180 mL 5 - 10 ml PO Q6H PRN PRN gastritis 11/04/24 Unknown Rx suspension #180 mL metoclopramide HCl 5 mg tablet 5 mg PO Q6H PRN nausea and 11/04/24 11/06/24 17:30 Rx (Reglan) vomiting #20 tabs oxycodone-acetaminophen 5 mg-325 1 tab PO Q4H PRN pain 11/06/24 Unknown History mg tablet (Percocet) pantoprazole 40 mg tablet,delayed 40 mg PO BID 11/06/24 Unknown History release potassium chloride 20 mEq 20 meq PO DAILY 11/06/24 Unknown History tablet,extended release(part/cryst) promethazine 25 mg tablet 25 mg PO TID PRN PRN 11/06/24 Unknown History nausea/vomiting quetiapine 200 mg tablet,extended 200 mg PO QPM 11/06/24 Unknown History release 24 hr sulfamethoxazole-trimethoprim 1 tab PO TID 11/06/24 Unknown History Allergy/AdvReac Type Severity Reaction Status Date / Time amitriptyline Allergy MUSCLE Verified 11/11/24 20:17 SPASMS Bleach (Sodium Hypochlorite) Allergy Hives Verified 11/11/24 20:17 codeine Allergy Hives Verified 11/11/24 20:17 ketorolac (From Toradol) Allergy Itching Verified 11/11/24 20:17 nitrofurantoin (From Allergy Anaphylaxis Verified 11/11/24 20:17 Macrodantin) NSAIDS (Non-Steroidal Allergy Other Verified 11/11/24 20:17 Anti-Inflamma doxycycline AdvReac Vomiting Verified 11/11/24 20:17 Family History Mother Hypertension Migraine Grandmother CVA (cerebral vascular accident) Grandfather Diabetes Father Myocardial infarction Surgical History History of cystoscopy S/P laparoscopic surgery History of hysterectomy Hx of cholecystectomy Social History household members: significant other Smoking Status: Current every day smoker tobacco type: e-cigarettes alcohol intake: current details: occasionally substance use type: does not use caffeine: Yes what type of physical activity do you participate in: walking frequency: 1-2 times per week seatbelt use: always do you feel safe at home: Yes additional social history: Single ROS ROS ED ROS Narrative Constitutional: Denies fevers, chills, headaches, lightness, dizziness Cardiovascular: Denies chest pain or palpitations Respiratory: Denies coughing wheezing shortness of breath Abdomen: Complains of abdominal pain, nausea vomiting : Denies any urinary symptoms Neurological: Denies numbness, weakness, tingling Musculoskeletal: Denies back pain Skin: Denies any rashes or lesions EXAM Physical Exam Narrative Exam Narrative: General: Patient was lying in bed rest comfortably did not appear to be acute distress Head: Atraumatic, normocephalic Eyes: PERRL bilaterally, EOMI bilaterally, no conjunctival injection noted Neck: Soft, supple, trachea midline Cardiovascular: Regular rate and rhythm no murmurs gallops rubs are noted Respiratory: Clear to auscultation bilaterally no rales rhonchi or wheezes noted Abdomen: Soft, nondistended, diffuse tenderness to palpation no rebound or guarding on exam, bowel sounds present x 4 Extremities: +5/5 strength noted in the bilateral upper and lower extremities, radial pulses +2/4 in the bilateral extremities, no pedal edema on exam Neurological: Patient follow commands knew that she was at [facility] years 2024 Skin: Warm, dry, intact Const Vital Signs: 11/11/24 20:16 11/11/24 22:16 11/12/24 00:04 Temperature 97.6 F L 98 F Temperature Source Temporal Pulse Rate 108 H 94 94 Respiratory Rate 16 16 16 Blood Pressure 154/103 H 144/100 H 138/95 H Blood Pressure Mean 120 114 109 Pulse Ox 99 98 99 Oxygen Delivery Method Room Air Room Air MDM MDM MDM Narrative Medical decision making narrative: Patient is a 34-year-old female who presented to the emergency department with a chief complaint of abdominal pain. Once again this has been going on for several months and she is being scheduled to see a gastroparesis specialist at [facility]. On the differential diagnose includes but not limited to viral gastroenteritis, gastroparesis, pancreatitis. Once workup is obtained reviewed she will be reevaluated. Patient given IV fluids, morphine Zofran. Patient CBC was reviewed and was largely unremarkable no evidence leukocytosis white blood count normal at 6.4, hemoglobin 12.8, plate count was noted to be normal at 217. Patient's sodium normal 136, potassium 4.9 CO2 was low at 18 however is chronically low for her, creatinine was 0.97. Patient's AST and ALT were 71 and 49 respectively with a normal total bilirubin of 0.50. Patient's lipase normal at 25. Did review the patient's CT scan from yesterday and it was largely unremarkable no acute findings hepatic steatosis noted. On reevaluation the patient she is feeling better I had a long discussion with her and advised her the need to follow-up with the specialist at [facility]. I offered her admission for potential transfer up there but notified her that this will likely be several days before bed will become available. I discussed with her that if her symptoms are to worsen that she is always welcome to come back however it may be in her best interest to go to [facility] where the specialist is at directly for evaluation by them. She states that they wanted to transfer her there in the past however she declined and went to a satellite [facility] as it was difficult for her transferred to [facility] to see her. After discussion patient would like to go home and is requesting work note which she will be provided. Once again she was advised to either come here or go to a nearby facility for further evaluation management of her symptoms are to worsen or if she has any other concerns. She was thankful for our discussion and all question concerns were answered she was discharged home in stable condition. Lab Data Labs: Laboratory Results - last 24 hr 11/11/24 11/11/24 21:15 21:24 WBC 6.4 RBC 4.26 Hgb 12.8 Hct 39.3 MCV 92.3 MCH 30.0 MCHC 32.6 RDW Std Deviation 43.9 RDW Coeff of Romario 13.1 Plt Count 217 MPV 11.8 Immature Gran % (Auto) 0.200 Neut % (Auto) 47.1 Lymph % (Auto) 44.0 H [place] % (Auto) 7.4 Eos % (Auto) 1.1 Baso % (Auto) 0.2 Absolute Neuts (auto) 3.0 Absolute Lymphs (auto) 2.80 Nucleated RBC % 0 Sodium 136 Potassium 4.9 Chloride 109 H Carbon Dioxide 18.0 L Anion Gap 9 BUN 5 L Creatinine 0.97 Estim Creat Clear Calc 86.91 Est GFR (MDRD) Af Amer 85 Est GFR (MDRD) Non-Af 70 BUN/Creatinine Ratio 5.2 L Glucose 102 Lactic Acid 1.3 Calcium 9.9 Total Bilirubin 0.50 AST 71 H ALT 49 Alkaline Phosphatase 126 H Total Protein 7.9 Albumin 3.8 Globulin 4.1 Albumin/Globulin Ratio 0.9 Lipase 25 Discharge Plan Triage Chief Complaint: Nausea/Vomiting ED Provider: Arvind Childress Dx/Rx/DC Orders Clinical Impression: Abdominal pain Prescriptions: No Action propranolol 10 mg tablet 10 mg PO DAILY Patient Comments: TAKE 1 TABLET BY MOUTH ONCE DAILY Nurtec ODT 75 mg tablet,disintegrating 75 mg PO ONCE PRN (Reason: migraine headache) Rx Instructions: as a single dose Qulipta 60 mg tablet 60 mg PO DAILY triamcinolone acetonide [Nasacort] 55 mcg aerosol,spray 2 spray intranasal QDAY Qty: 16.9 0RF Rx Instructions: administer into each nostril escitalopram oxalate [Lexapro] 20 mg Tablet 20 mg PO DAILY quetiapine 50 mg tablet extended release 24 hr 200 mg PO QHS tizanidine 4 mg tablet 4 mg PO TID PRN (Reason: MUSCLE SPASMS ) Patient Comments: PT STATES THAT THEY USUALLY TAKE ALL THREE TABLETS TOGETHER ONCE DAILY AT BEDTIME BECAUSE IT MAKES THEM DROWSY ( OF 10-28-23) metoclopramide HCl [Reglan] 5 mg tablet 5 mg PO Q6H PRN (Reason: nausea and vomiting) Qty: 20 0RF MAGIC MOUTH WASH (BMX) 180 mL suspension 5 - 10 ml PO Q6H PRN PRN (Reason: gastritis) Qty: 180 0RF Rx Instructions: diphenhydramine 12.5 mg/5 mL oral liquid 60 mL; aluminum-mag hydroxide-sim ethicone 400 mg-400 mg-40 mg/5 mL oral susp 60 mL; Lidocaine Viscous 2 % mucosal solution 60 mL; Per 180 mL potassium chloride 20 mEq tablet,ER particles/crystals 20 meq PO DAILY pantoprazole 40 mg tablet,delayed release (DR/EC) 40 mg PO BID promethazine 25 mg tablet 25 mg PO TID PRN PRN (Reason: nausea/vomiting) quetiapine 200 mg tablet extended release 24 hr 200 mg PO QPM sulfamethoxazole-trimethoprim [Bactrim] 1 tab PO TID oxycodone-acetaminophen [Percocet] 5-325 mg tablet 1 tab PO Q4H PRN (Reason: pain) Patient Comments: patient needs to get it filled, currently out but has not made it to her pharmacy to pick it up ondansetron 4 mg tablet,disintegrating 4 mg PO Q8H PRN PRN (Reason: Nausea) Qty: 10 0RF Stand Alone Forms: ED Work / School Excuse Primary Care Provider: Dean Varghese Referrals: Dean Varghese DO [Primary Care Provider] - Activity Restrictions/Additional Instructions: Follow-up your doctor in the outpatient setting. Call your gastroparesis physician on Thursday to see if they can get you in sooner since this is your second visit in 2 days. Return with worsening symptoms. Take your medications that you are prescribed. Print Language: Turkish Disposition Disposition: Home, Self Care
[2024-11-18 21:56] LABS: BUN/Creat Ratio 5.1 RATIO (10-20); EST Glomerular Filtration Rate 70 mL/min (>60); Est Glom Filt Rate - Afr Amer 84 mL/min (>60)
== END 2024-11-12 00:23 | disposition home or self-care (01) ==
PROVIDERS: Emergency Provider Emergency Medicine; Visit Provider Emergency Medicine
DX: R10.9 Unspecified abdominal pain (principal); F31.9 Bipolar disorder, unspecified; R11.2 Nausea with vomiting, unspecified; I10 Essential (primary) hypertension; E78.00 Pure hypercholesterolemia, unspecified; F41.9 Anxiety disorder, unspecified; K31.84 Gastroparesis; M79.7 Fibromyalgia; K21.9 Gastro-esophageal reflux disease without esophagitis; K76.0 Fatty (change of) liver, not elsewhere classified; F17.290 Nicotine dependence, other tobacco product, uncomplicated; G25.81 Restless legs syndrome; G43.909 Migraine, unspecified, not intractable, without status migrainosus; Z88.1 Allergy status to other antibiotic agents; Z87.11 Personal history of peptic ulcer disease; Z87.19 Personal history of other diseases of the digestive system; Z85.41 Personal history of malignant neoplasm of cervix uteri; Z90.49 Acquired absence of other specified parts of digestive tract; Z90.710 Acquired absence of both cervix and uterus
CPT/HCPCS: 80053; 83605; 83690; 85025; 96361; 96374; 96375; 96376; 99283; A4216

== ENCOUNTER 2024-11-22 01:09 | Emergency (ER) | payer MEDICAID, SELFPAY ==
[2024-11-22 01:10] VITALS: BP 136/81; PULSE 45; RESP 16; TEMP 37.3; O2SAT 94; BMI 36.1
[2024-11-22 01:14] VITALS: BP 136/81; PULSE 44; RESP 16; O2SAT 96
--- NOTE | 2024-11-22 02:05 | EKG12_ITS ---
Test Reason : CP Blood Pressure : */* mmHG Vent. Rate : 39 BPM Atrial Rate : 39 BPM P-R Int : 124 ms QRS Dur : 68 ms QT Int : 414 ms P-R-T Axes : 10 12 0 degrees QTcB Int : 333 ms Critical Test Result: Low HR Marked sinus bradycardia Nonspecific T wave abnormality Abnormal ECG Confirmed by ONELIA SHARP, REZA ([id number]), commissioning editor JAYDEN SANCHES ([id number]) on 11/23/2024 6:30:09 AM Referred By: MORRO Confirmed By: REZA ROUSSEAU MD
[2024-11-22] MEDS: guaiFENesin/Codeine 5 ML UDC 10 ML PO (02:34)
[2024-11-22] MEDS: 0.9% Normal Saline (1000mL) 1,000 ML 999 ML IV (02:35)
[2024-11-22] MEDS: dexAMETHasone 10 MG/ML Vial IV (02:35)
[2024-11-22 02:49] LABS: Absolute Neutrophil Count 1.4 X10^3/uL (2.0-7.7); Basophil# 0.02 X10^3/uL; Basophil% 0.6 % (0-1); Eosinophil# 0.01 X10^3/uL; Eosinophils% 0.3 % (0-5); Hematocrit 35.8 % (37-47); Hemoglobin 11.9 g/dL (12.0-15.0); Mean Corp Hgb Conc 33.2 g/dL (32-36); Mean Corpuscular Hgb 30.7 pg (27.0-32.0); Mean Corpuscular Volume 92.5 fL (81-99); Mean Platelet Vol. 11.6 fl (6.2-12.0); Monocyte# 0.38 X10^3/uL; Monocyte% 11.9 % (0-10); NRBC Flagged by Analyzer 0 % (0-5); Neutrophil # 1.36 X10^3/uL (2.7-7.7); Neutrophil % 42.9 % (47-70); Platelet Count 161 K/mm3 (150-450); RBC Distribution Width CV 13.3 % (11.6-14.6); RBC Distribution Width SD 45.2 fl (35.1-43.9); Red Blood Count 3.87 M/mm3 (4.2-5.4); White Blood Count 3.2 K/mm3 (4.4-11.0)
--- NOTE | 2024-11-22 02:50 | RAD_ITS ---
INDICATION: cough EXAMINATION/TECHNIQUE: X-RAY - XR Chest 2 Views COMPARISON: Prior study dated: 10/24/2023 FINDINGS: LINES/DEVICES: None. LUNGS: No consolidation. No pneumothorax. MEDIASTINUM: Unremarkable. CARDIAC SILHOUETTE: Not enlarged. BONES AND SOFT TISSUES: No acute abnormalities. RAD/Chest PA and Lateral IMPRESSION: No evidence of active intrathoracic disease. Electronically Signed: Traci Gonzalez MD at 4:56 EST ,
[2024-11-22 03:12] LABS: Anion Gap 7 (5-15); BUN 6 mg/dL (7-18); BUN/Creat Ratio 7.3 RATIO (10-20); Calcium,Total 8.6 mg/dL (8.5-10.1); Chloride 107 mmol/L (98-107); Creatinine, Serum 0.82 mg/dL (0.55-1.02); EST Glomerular Filtration Rate 85 mL/min (>60); Est Glom Filt Rate - Afr Amer 102 mL/min (>60); Estimated Creatinine Clearance 104.51 ml/min; Glucose 151 mg/dL (74-106); Potassium 3.4 mmol/L (3.5-5.1); Sodium Level 136 mmol/L (136-145); Troponin-I HS 35 pg/mL (3.0-54.0)
--- NOTE | 2024-11-22 03:47 | EX.ED.DYSGE1 ---
HPI History of Present Illness Chief Complaint: Cough Informant: patient and family Narrative Narrative: Patient is a 34-year-old female with past medical history of hypertension anxiety and bipolar disorder. She states that she developed congestion cough and sore throat with generalized fatigue and headache. She reports she went to an urgent care and was diagnosed with influenza by a viral swab. She states she was placed on Tamiflu. She states she took 1 dose of the Tamiflu but that today her symptoms have seemed to worsen and secondary to that she presents for evaluation. [facility] Medical History Gastroparesis Pancreatitis Right knee pain Avulsion fracture of lateral malleolus of right fibula Left renal stone Smoker Bilateral renal stones Wears glasses Wears dentures Alcohol use Marijuana use History of renal disease Fatty liver High cholesterol Easy bruising Restless legs Syncope Gastric reflux Environmental and seasonal allergies Leg cramps History of edema History of echocardiogram History of stress test Cardiology follow-up encounter Hypertension Peptic ulcer of stomach Migraine Chronic interstitial cystitis Endometriosis Bipolar disorder Anxiety Depression Back pain Conversion disorder History of cervical cancer Kidney stone Fibromyalgia Home Medications ?Medication ?Instructions ?Recorded ?Last Taken ?Type escitalopram oxalate 20 mg tablet 20 mg PO DAILY DEPRESSION 09/22/21 10/27/23 History (Lexapro) quetiapine 50 mg tablet,extended 200 mg PO QHS MOOD 01/30/23 10/27/23 History release 24 hr tizanidine 4 mg tablet 4 mg PO TID PRN MUSCLE SPASMS 10/28/23 10/27/23 History propranolol 10 mg tablet 10 mg PO DAILY 12/12/23 Unknown History atogepant 60 mg tablet (Qulipta) 60 mg PO DAILY 04/21/24 Unknown History rimegepant 75 mg disintegrating 75 mg PO ONCE PRN migraine headache 04/21/24 Unknown History tablet (Nurtec ODT) triamcinolone acetonide 55 mcg 2 spray intranasal QDAY #16.9 mL 07/25/24 Unknown Rx nasal spray aerosol (Nasacort) ondansetron 4 mg disintegrating 4 mg PO Q8H PRN PRN Nausea #10 tabs 07/30/24 Unknown Rx tablet MAGIC MOUTH WASH (BMX) 180 mL 5 - 10 ml PO Q6H PRN PRN gastritis 11/04/24 Unknown Rx suspension #180 mL metoclopramide HCl 5 mg tablet 5 mg PO Q6H PRN nausea and 11/04/24 11/06/24 17:30 Rx (Reglan) vomiting #20 tabs oxycodone-acetaminophen 5 mg-325 1 tab PO Q4H PRN pain 11/06/24 Unknown History mg tablet (Percocet) pantoprazole 40 mg tablet,delayed 40 mg PO BID 11/06/24 Unknown History release potassium chloride 20 mEq 20 meq PO DAILY 11/06/24 Unknown History tablet,extended release(part/cryst) promethazine 25 mg tablet 25 mg PO TID PRN PRN 11/06/24 Unknown History nausea/vomiting quetiapine 200 mg tablet,extended 200 mg PO QPM 11/06/24 Unknown History release 24 hr sulfamethoxazole-trimethoprim 1 tab PO TID 11/06/24 Unknown History oseltamivir 75 mg capsule 75 mg PO BID 5 days #10 caps 11/21/24 Unknown Rx codeine 10 mg-guaifenesin 100 mg/5 10 ml PO 4X/DAY PRN flu symptoms 7 11/22/24 Unknown Rx mL oral liquid (Guaifenesin AC) days #280 mL prednisone 20 mg tablet 40 mg (2 x 20 mg) PO DAILY 5 days 11/22/24 Unknown Rx #10 tabs Allergy/AdvReac Type Severity Reaction Status Date / Time amitriptyline Allergy MUSCLE Verified 11/22/24 01:10 SPASMS Bleach (Sodium Hypochlorite) Allergy Hives Verified 11/22/24 01:10 codeine Allergy Hives Verified 11/22/24 01:10 ketorolac (From Toradol) Allergy Itching Verified 11/22/24 01:10 nitrofurantoin (From Allergy Anaphylaxis Verified 11/22/24 01:10 Macrodantin) NSAIDS (Non-Steroidal Allergy Other Verified 11/22/24 01:10 Anti-Inflamma doxycycline AdvReac Vomiting Verified 11/22/24 01:10 Family History Mother Hypertension Migraine Grandmother CVA (cerebral vascular accident) Grandfather Diabetes Father Myocardial infarction Surgical History History of cystoscopy S/P laparoscopic surgery History of hysterectomy Hx of cholecystectomy Social History household members: significant other Smoking Status: Current every day smoker tobacco type: e-cigarettes alcohol intake: current details: occasionally substance use type: does not use caffeine: Yes what type of physical activity do you participate in: walking frequency: 1-2 times per week seatbelt use: always do you feel safe at home: Yes additional social history: Single ROS ROS ED Constitutional Constitutional ED: Reports chills and fever(s) Eyes Eyes: Denies change in vision ENT ENT ED: Reports rhinorrhea and sore throat Cardiovascular Cardiovascular: Reports chest pain Respiratory/Chest Respiratory/Chest: Reports cough and dyspnea Gastrointestinal Gastrointestinal: Reports nausea; Denies abdominal pain, diarrhea or vomiting Genitourinary Genitourinary ED: Denies dysuria Musculoskeletal Musculoskeletal: Reports myalgias Integumentary Denies rash Neurologic Neurologic: Reports headache(s) Hematologic/Lymphatic Hematologic/Lymphatic: Denies easy bleeding or easy bruising Allergic/Immunologic Allergic/Immunologic ED: Denies mouth swelling or tongue swelling EXAM Physical Exam Const Vital Signs: 11/22/24 01:10 11/22/24 01:14 11/22/24 01:14 Temperature 99.1 F Temperature Source Oral Pulse Rate 45 L 44 L Respiratory Rate 16 16 Respiratory Effort Short of Breath Blood Pressure 136/81 H 136/81 H Blood Pressure Mean 99 99 Pulse Ox 94 96 Oxygen Delivery Method Room Air Room Air 11/22/24 03:56 11/22/24 03:57 Temperature 98.4 F Temperature Source Pulse Rate 45 L Respiratory Rate 16 Respiratory Effort Normal Non-Labored Short of Breath Blood Pressure 132/93 H Blood Pressure Mean 106 Pulse Ox 97 Oxygen Delivery Method Room Air Positive well nourished, well developed and obese General Appearance ED: well developed; Negative for pallor Nutritional Appearance: obese HEENT HEENT Narrative: Bilateral TMs are retracted but show no secondary changes to suggest infection Nasal mucosa is hyperemic and boggy There is cobblestoning noted in the posterior pharynx consistent with sinus drainage without airway edema or compromise; no secondary findings to suggest infection Eyes PERRL and EOMs intact bilaterally General Eye ED: Negative for scleral icterus Neck supple and no JVD Neck Narrative: No nuchal rigidity or meningeal signs Chest Wall Chest Narrative: There is reproducible pain on palpation of the anterior chest wall without bony deformity crepitance or subcutaneous emphysema Resp normal respiratory effort Resp Narrative: Breath sounds are diminished throughout with faint rhonchi in the bilateral bases but no signs of respiratory distress Cardio regular rhythm Rate: bradycardia and other Other Details: Bradycardic rate with regular rhythm No murmurs rubs or gallops Radial and carotid pulses are equal and symmetric GI normal to inspection, nondistended, normoactive bowel sounds, non-tender, non-distended and no masses Auscultation: normoactive bowel sounds Palpation: soft Extremity normal to inspection Extremity Narrative: No asymmetric edema no pitting edema negative Homans' sign bilaterally Neuro oriented x3, CN's II-XII intact bilaterally and no sensory deficits noted Sensorium / Orientation: alert Motor Exam: strength 5/5 throughout Psych mental status grossly normal Skin no rashes or lesions noted General Skin Exam: Negative for jaundice or pallor MDM MDM MDM Narrative Medical decision making narrative: Patient arrived to the ER bradycardic but otherwise with stable vitals satting in the mid to high 90s on room air. She has a known diagnosis of influenza A. However she may have developed a influenza pneumonia or potential pneumothorax with the bradycardia there is concern for acute kidney injury or severe electrolyte abnormality. With the report of chest discomfort there is concern potential viral myocarditis. Therefore elected to perform a chest x-ray and basic lab. Patient did not have signs of ERIC or clinically significant electrolyte abnormality. Her troponin was 35 which is her baseline upon chart review going against myocarditis. X-ray revealed no acute lung pathology such as pneumonia or pneumothorax. She received IV fluids as well as Decadron and had improvement of symptoms. I do feel her bradycardia is most likely related to the Tamiflu as an adverse effect and can create cardiac dysrhythmia. However she is not hypotensive from the bradycardia she is mentating normally she does not have need for supplemental oxygen and there is no signs of systemic infection such as sepsis so there is no need for admission. Patient was advised to stop the Tamiflu as I feel this is the cause of her change in heart rate but otherwise she is safe for discharge with symptomatic care History & Record Review Discussion w/independent historian: Patient and Family Lab Data Attestation: I reviewed the patient's lab results. Labs: Laboratory Results - last 24 hr 11/22/24 02:37 WBC 3.2 L RBC 3.87 L Hgb 11.9 L Hct 35.8 L MCV 92.5 MCH 30.7 MCHC 33.2 RDW Std Deviation 45.2 H RDW Coeff of Romario 13.3 Plt Count 161 MPV 11.6 Immature Gran % (Auto) 0.300 Neut % (Auto) 42.9 L Lymph % (Auto) 44.0 H [place] % (Auto) 11.9 H Eos % (Auto) 0.3 Baso % (Auto) 0.6 Absolute Neuts (auto) 1.4 L Absolute Lymphs (auto) 1.40 Nucleated RBC % 0 Sodium 136 Potassium 3.4 L Chloride 107 Carbon Dioxide 22.0 Anion Gap 7 BUN 6 L Creatinine 0.82 Estim Creat Clear Calc 104.51 Est GFR (MDRD) Af Amer 102 Est GFR (MDRD) Non-Af 85 BUN/Creatinine Ratio 7.3 L Glucose 151 H Calcium 8.6 Magnesium 2.0 Troponin I High Sens 35 Radiography Diagnostic Testing: Clinical Impression(s) from Imaging Studies Chest X-Ray 11/22/24 02:50 IMPRESSION: No evidence of active intrathoracic disease. Electronically Signed: Traci Gonzalez MD at 4:56 EST Reading Location ID and State: [address] [place] [address] Tel , Service support , Chest x-ray as interpreted by the emergency medicine physician reveals no acute infiltrate pneumothorax or pleural effusion Discharge Plan Triage Chief Complaint: Cough Other Complaint: Chest Pain ED Provider: Lanre Puentes Dx/Rx/DC Orders Clinical Impression: Influenza A, Bradycardia, sinus, Bipolar disorder, Hypertension Instructions: ED Influenza (Adult) Prescriptions: New prednisone 20 mg tablet 40 mg PO DAILY 5 Days Qty: 10 0RF codeine-guaifenesin [Guaifenesin AC] 10-100 mg/5 mL liquid 10 ml PO 4X/DAY PRN (Reason: flu symptoms) 7 Days Qty: 280 0RF No Action propranolol 10 mg tablet 10 mg PO DAILY Patient Comments: TAKE 1 TABLET BY MOUTH ONCE DAILY Nurtec ODT 75 mg tablet,disintegrating 75 mg PO ONCE PRN (Reason: migraine headache) Rx Instructions: as a single dose Qulipta 60 mg tablet 60 mg PO DAILY triamcinolone acetonide [Nasacort] 55 mcg aerosol,spray 2 spray intranasal QDAY Qty: 16.9 0RF Rx Instructions: administer into each nostril oseltamivir 75 mg capsule 75 mg PO BID 5 Days Qty: 10 0RF escitalopram oxalate [Lexapro] 20 mg Tablet 20 mg PO DAILY quetiapine 50 mg tablet extended release 24 hr 200 mg PO QHS tizanidine 4 mg tablet 4 mg PO TID PRN (Reason: MUSCLE SPASMS ) Patient Comments: PT STATES THAT THEY USUALLY TAKE ALL THREE TABLETS TOGETHER ONCE DAILY AT BEDTIME BECAUSE IT MAKES THEM DROWSY ( OF 10-28-23) metoclopramide HCl [Reglan] 5 mg tablet 5 mg PO Q6H PRN (Reason: nausea and vomiting) Qty: 20 0RF MAGIC MOUTH WASH (BMX) 180 mL suspension 5 - 10 ml PO Q6H PRN PRN (Reason: gastritis) Qty: 180 0RF Rx Instructions: diphenhydramine 12.5 mg/5 mL oral liquid 60 mL; aluminum-mag hydroxide-simethicone 400 mg-400 mg-40 mg/5 mL oral susp 60 mL; Lidocaine Viscous 2 % mucosal solution 60 mL; Per 180 mL potassium chloride 20 mEq tablet,ER particles/crystals 20 meq PO DAILY pantoprazole 40 mg tablet,delayed release (DR/EC) 40 mg PO BID promethazine 25 mg tablet 25 mg PO TID PRN PRN (Reason: nausea/vomiting) quetiapine 200 mg tablet extended release 24 hr 200 mg PO QPM sulfamethoxazole-trimethoprim [Bactrim] 1 tab PO TID oxycodone-acetaminophen [Percocet] 5-325 mg tablet 1 tab PO Q4H PRN (Reason: pain) Patient Comments: patient needs to get it filled, currently out but has not made it to her pharmacy to pick it up ondansetron 4 mg tablet,disintegrating 4 mg PO Q8H PRN PRN (Reason: Nausea) Qty: 10 0RF Stand Alone Forms: ED Work / School Excuse Primary Care Provider: Dean Varghese Referrals: Dean Varghese DO [Primary Care Provider] - Activity Restrictions/Additional Instructions: Please stop taking the Tamiflu as I feel this is worsening your symptoms secondary to adverse side effect. Continue with Tylenol and/or Motrin for fever and pain control and add the prednisone/steroid and cough syrup from the ER for improved symptom control. Return to the ER should you have any further concerns Print Language: Citizen Of [place] Disposition Disposition: Home, Self Care Discharge Date/Time: 11/22/24 03:58
[2024-11-22 03:56] VITALS: BP 132/93; PULSE 45; RESP 16; TEMP 36.9; O2SAT 97
[2024-11-22 03:57] VITALS: O2SAT 95
== END 2024-11-22 03:58 | disposition home or self-care (01) ==
PROVIDERS: Emergency Provider Emergency Medicine; Visit Provider Emergency Medicine
DX: J10.1 Influenza due to other identified influenza virus with other respiratory manifestations (principal); F31.9 Bipolar disorder, unspecified; R00.1 Bradycardia, unspecified; I10 Essential (primary) hypertension; F17.290 Nicotine dependence, other tobacco product, uncomplicated
CPT/HCPCS: 71046; 80048; 83735; 84484; 85025; 93005; 96374; 99285; A4216

== ENCOUNTER 2024-11-25 20:25 | Emergency (ER) | payer MEDICAID, SELFPAY ==
[2024-11-25 20:26] VITALS: BP 155/103; PULSE 82; RESP 16; TEMP 36.9; O2SAT 99; BMI 34.9
--- NOTE | 2024-11-25 20:33 | ED.VIS.GI ---
HPI HPI - GI History of Present Illness Chief Complaint: Abd Pain Informant: patient Abdominal Pain/Flank Pain Onset: Today Context: Gradual Onset Timing: Continuous Quality: Sharp Location: Diffuse Worsened by: Food Relieved by: - (Heating pad, Reglan) Nausea/Vomiting/Emesis GI Symptom: Positive for Nausea and Vomiting Quality: Positive for Nonbilious; Negative for Blood streaks, Coffee ground or Hematemesis Diarrhea/Melena/Hematochezia GI Symptom: Negative for Diarrhea, Melena or Hematochezia Associated Symptoms Associated Symptoms: Negative for Dysuria, Frequency or Hematuria Narrative Narrative: Patient presents with abdominal pain that became worse today. 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 Patient states she was referred to a gastroparesis specialist but does not have an appointment until February 21. Patient states her pain is mainly over the upper abdomen and radiates to the periumbilical and suprapubic areas. Patient states it is worse with eating. Patient states that heating pad and Reglan have been helping. Patient denies any hematemesis or coffee-ground emesis. Patient denies any diarrhea, melena, or hematochezia. [facility] Medical History Gastroparesis Pancreatitis Right knee pain Avulsion fracture of lateral malleolus of right fibula Left renal stone Smoker Bilateral renal stones Wears glasses Wears dentures Alcohol use Marijuana use History of renal disease Fatty liver High cholesterol Easy bruising Restless legs Syncope Gastric reflux Environmental and seasonal allergies Leg cramps History of edema History of echocardiogram History of stress test Cardiology follow-up encounter Hypertension Peptic ulcer of stomach Migraine Chronic interstitial cystitis Endometriosis Bipolar disorder Anxiety Depression Back pain Conversion disorder History of cervical cancer Kidney stone Fibromyalgia Home Medications ?Medication ?Instructions ?Recorded ?Last Taken ?Type escitalopram oxalate 20 mg tablet 20 mg PO DAILY DEPRESSION 09/22/21 10/27/23 History (Lexapro) quetiapine 50 mg tablet,extended 200 mg PO QHS MOOD 01/30/23 10/27/23 History release 24 hr tizanidine 4 mg tablet 4 mg PO TID PRN MUSCLE SPASMS 10/28/23 10/27/23 History propranolol 10 mg tablet 10 mg PO DAILY 12/12/23 Unknown History atogepant 60 mg tablet (Qulipta) 60 mg PO DAILY 04/21/24 Unknown History rimegepant 75 mg disintegrating 75 mg PO ONCE PRN migraine headache 04/21/24 Unknown History tablet (Nurtec ODT) triamcinolone acetonide 55 mcg 2 spray intranasal QDAY #16.9 mL 07/25/24 Unknown Rx nasal spray aerosol (Nasacort) ondansetron 4 mg disintegrating 4 mg PO Q8H PRN PRN Nausea #10 tabs 07/30/24 Unknown Rx tablet MAGIC MOUTH WASH (BMX) 180 mL 5 - 10 ml PO Q6H PRN PRN gastritis 11/04/24 Unknown Rx suspension #180 mL metoclopramide HCl 5 mg tablet 5 mg PO Q6H PRN nausea and 11/04/24 11/06/24 17:30 Rx (Reglan) vomiting #20 tabs oxycodone-acetaminophen 5 mg-325 1 tab PO Q4H PRN pain 11/06/24 Unknown History mg tablet (Percocet) pantoprazole 40 mg tablet,delayed 40 mg PO BID 11/06/24 Unknown History release potassium chloride 20 mEq 20 meq PO DAILY 11/06/24 Unknown History tablet,extended release(part/cryst) promethazine 25 mg tablet 25 mg PO TID PRN PRN 11/06/24 Unknown History nausea/vomiting quetiapine 200 mg tablet,extended 200 mg PO QPM 11/06/24 Unknown History release 24 hr sulfamethoxazole-trimethoprim 1 tab PO TID 11/06/24 Unknown History oseltamivir 75 mg capsule 75 mg PO BID 5 days #10 caps 11/21/24 Unknown Rx codeine 10 mg-guaifenesin 100 mg/5 10 ml PO 4X/DAY PRN flu symptoms 7 11/22/24 Unknown Rx mL oral liquid (Guaifenesin AC) days #280 mL prednisone 20 mg tablet 40 mg (2 x 20 mg) PO DAILY 5 days 11/22/24 Unknown Rx #10 tabs Allergy/AdvReac Type Severity Reaction Status Date / Time amitriptyline Allergy MUSCLE Verified 11/22/24 01:10 SPASMS Bleach (Sodium Hypochlorite) Allergy Hives Verified 11/22/24 01:10 codeine Allergy Hives Verified 11/22/24 01:10 ketorolac (From Toradol) Allergy Itching Verified 11/22/24 01:10 nitrofurantoin (From Allergy Anaphylaxis Verified 11/22/24 01:10 Macrodantin) NSAIDS (Non-Steroidal Allergy Other Verified 11/22/24 01:10 Anti-Inflamma oseltamivir (From Tamiflu) Allergy SOB Verified 11/25/24 20:28 doxycycline AdvReac Vomiting Verified 11/22/24 01:10 Family History Mother Hypertension Migraine Grandmother CVA (cerebral vascular accident) Grandfather Diabetes Father Myocardial infarction Surgical History History of cystoscopy S/P laparoscopic surgery History of hysterectomy Hx of cholecystectomy Social History household members: significant other Smoking Status: Current every day smoker tobacco type: e-cigarettes alcohol intake: current details: occasionally substance use type: does not use caffeine: Yes what type of physical activity do you participate in: walking frequency: 1-2 times per week seatbelt use: always do you feel safe at home: Yes additional social history: Single ROS ROS ED Constitutional Constitutional ED: Denies chills or fever(s) Eyes Eyes: Denies blurry vision or change in vision ENT ENT ED: Denies rhinorrhea or sore throat Cardiovascular Cardiovascular: Denies chest pain or palpitations Respiratory/Chest Respiratory/Chest: Denies cough or dyspnea Gastrointestinal Gastrointestinal: Reports abdominal pain, nausea and vomiting; Denies diarrhea Genitourinary Genitourinary ED: Denies dysuria or hematuria Musculoskeletal Musculoskeletal: Reports back pain; Denies neck pain Integumentary Denies abscess or rash Neurologic Neurologic: Denies headache(s) or weakness Allergic/Immunologic Allergic/Immunologic ED: Denies mouth swelling or urticaria EXAM Physical Exam Const Vital Signs: 11/25/24 20:26 Temperature 98.4 F Temperature Source Oral Pulse Rate 82 Respiratory Rate 16 Blood Pressure 155/103 H Blood Pressure Mean 120 Pulse Ox 99 Oxygen Delivery Method Room Air Positive well nourished and well developed General Appearance ED: well developed and NAD HEENT Reports moist mucous membranes Neck supple and no JVD Resp normal respiratory effort and clear to auscultation bilaterally Cardio regular rate and regular rhythm GI non-distended Palpation: soft and tender epigastric, LUQ, RUQ, periumbilical and suprapubic Extremity full ROM Neuro CN's II-XII intact bilaterally, moves all extremities, no sensory deficits noted and gait normal Sensorium / Orientation: alert Motor Exam: strength 5/5 throughout Psych mental status grossly normal MDM MDM MDM Narrative Medical decision making narrative: Differential diagnosis includes gastroparesis, viral illness, gastroenteritis, pancreatitis, pyelonephritis, urinary tract infection, and electrolyte abnormality. CBC will be obtained to assess for leukocytosis and anemia. Comprehensive metabolic profile will be obtained to assess for hepatic function, renal function, and electrolyte abnormality. Lipase will be obtained to assess for pancreatitis. Urinalysis will be obtained to assess for urinary tract infection and pyelonephritis. Lab Data Attestation: I reviewed the patient's lab results. Lab results narrative: CBC was reviewed. There is a slight anemia with hemoglobin of 11.8 and hematocrit 34.3. Comprehensive metabolic profile was reviewed. Glucose was elevated to 48. The remainder is within normal limits. Lipase was reviewed and was normal at 56. Urinalysis was reviewed. There is no evidence of urinary tract infection or hematuria. Labs: Laboratory Results - last 24 hr 11/25/24 11/25/24 21:45 22:31 WBC 6.6 RBC 3.85 L Hgb 11.8 L Hct 34.3 L MCV 89.1 MCH 30.6 MCHC 34.4 RDW Std Deviation 42.4 RDW Coeff of Romario 13.0 Plt Count 192 MPV 11.9 Immature Gran % (Auto) 0.300 Neut % (Auto) 70.3 H Lymph % (Auto) 24.3 Lane % (Auto) 4.7 Eos % (Auto) 0.2 Baso % (Auto) 0.2 Absolute Neuts (auto) 4.6 Absolute Lymphs (auto) 1.60 Nucleated RBC % 0 Sodium 138 Potassium 3.6 Chloride 109 H Carbon Dioxide 19.0 L Anion Gap 10 BUN 12 Creatinine 0.83 Estim Creat Clear Calc 101.33 Est GFR (MDRD) Af Amer 101 Est GFR (MDRD) Non-Af 83 BUN/Creatinine Ratio 14.4 Glucose 248 H Calcium 8.7 Total Bilirubin 0.20 AST 62 H ALT 56 Alkaline Phosphatase 103 Total Protein 6.9 Albumin 3.2 Globulin 3.7 Albumin/Globulin Ratio 0.9 Lipase 56 Urine Color Yellow Urine Clarity Clear Urine pH 7.0 Ur Specific [place] 1.005 Urine Protein Negative Urine Glucose (UA) Normal Urine Ketones Negative Urine Occult Blood Negative Urine Nitrite Negative Urine Bilirubin Negative Urine Urobilinogen Normal Ur Leukocyte Esterase 25 H Urine RBC 0 SEEN Urine WBC 0 SEEN Ur Squamous Epith Cells 0-5 SEEN Urine Bacteria 1+ Urine Mucus 0 SEEN Treatment and Re-Evaluation :: Patient was ordered IV fluids and Reglan however, IV was unable to be established and these were not given. Patient was given an IM injection of morphine instead. Patient was given a GI cocktail. Patient was advised of her findings. Patient was instructed to follow-up with her primary care physician and elevator constructor hydraulic in 5 to 7 days. Patient was instructed to start with a bland diet and advance as tolerated. Patient understood and was agreeable with the plan. All questions were answered. Discharge Plan Triage Chief Complaint: Abd Pain ED Provider: Gage Joya Dx/Rx/DC Orders Clinical Impression: Abdominal pain, Gastroparesis Instructions: Gastroparesis, ED Abdominal Pain Unkn Cause Fem Prescriptions: No Action propranolol 10 mg tablet 10 mg PO DAILY Patient Comments: TAKE 1 TABLET BY MOUTH ONCE DAILY Nurtec ODT 75 mg tablet,disintegrating 75 mg PO ONCE PRN (Reason: migraine headache) Rx Instructions: as a single dose Qulipta 60 mg tablet 60 mg PO DAILY triamcinolone acetonide [Nasacort] 55 mcg aerosol,spray 2 spray intranasal QDAY Qty: 16.9 0RF Rx Instructions: administer into each nostril oseltamivir 75 mg capsule 75 mg PO BID 5 Days Qty: 10 0RF escitalopram oxalate [Lexapro] 20 mg Tablet 20 mg PO DAILY quetiapine 50 mg tablet extended release 24 hr 200 mg PO QHS tizanidine 4 mg tablet 4 mg PO TID PRN (Reason: MUSCLE SPASMS ) Patient Comments: PT STATES THAT THEY USUALLY TAKE ALL THREE TABLETS TOGETHER ONCE DAILY AT BEDTIME BECAUSE IT MAKES THEM DROWSY ( OF 10-28-23) metoclopramide HCl [Reglan] 5 mg tablet 5 mg PO Q6H PRN (Reason: nausea and vomiting) Qty: 20 0RF MAGIC MOUTH WASH (BMX) 180 mL suspension 5 - 10 ml PO Q6H PRN PRN (Reason: gastritis) Qty: 180 0RF Rx Instructions: diphenhydramine 12.5 mg/5 mL oral liquid 60 mL; aluminum-mag hydroxide-simethicone 400 mg-400 mg-40 mg/5 mL oral susp 60 mL; Lidocaine Viscous 2 % mucosal solution 60 mL; Per 180 mL potassium chloride 20 mEq tablet,ER particles/crystals 20 meq PO DAILY pantoprazole 40 mg tablet,delayed release (DR/EC) 40 mg PO BID promethazine 25 mg tablet 25 mg PO TID PRN PRN (Reason: nausea/vomiting) quetiapine 200 mg tablet extended release 24 hr 200 mg PO QPM sulfamethoxazole-trimethoprim [Bactrim] 1 tab PO TID oxycodone-acetaminophen [Percocet] 5-325 mg tablet 1 tab PO Q4H PRN (Reason: pain) Patient Comments: patient needs to get it filled, currently out but has not made it to her pharmacy to pick it up prednisone 20 mg tablet 40 mg PO DAILY 5 Days Qty: 10 0RF codeine-guaifenesin [Guaifenesin AC] 10-100 mg/5 mL liquid 10 ml PO 4X/DAY PRN (Reason: flu symptoms) 7 Days Qty: 280 0RF ondansetron 4 mg tablet,disintegrating 4 mg PO Q8H PRN PRN (Reason: Nausea) Qty: 10 0RF Primary Care Provider: Dean Varghese Referrals: Dean Varghese DO [Primary Care Provider] - 3-5 Days Print Language: Welsh Disposition Disposition: Home, Self Care
[2024-11-25 21:58] LABS: Mucous, Urine 0 SEEN /hpf (<or=2+); Red Blood Cells-Urine 0 SEEN /hpf (0-5); White Blood Cells 0 SEEN /hpf (0-5)
[2024-11-25 22:02] LABS: Color, Urine Yellow (Yellow); Glucose, Dipstick Normal (Normal); Ketone-Dipstick Negative (Negative); Leukocyte Esterase-Dipstick 25 /ul (Negative); Nitrite-Dipstick Negative (Negative); Occult Blood-Urine Negative /ul (Negative); Protein-Dipstick Negative (Negative); Specific Gravity, Urine 1.005 (1.002-1.030); Urine Bilirubin Dipstick Negative (Negative); Urine Clarity Clear (Clear); Urine Urobilinogen Normal (Normal)
[2024-11-25 22:07] LABS: Bacteria 1+ /hpf (None Seen); Squamous Epithelial Cells - UA 0-5 SEEN /hpf (5-10)
[2024-11-25 22:25] VITALS: BP 126/71; PULSE 43; RESP 18; O2SAT 96
[2024-11-25 22:45] LABS: Absolute Neutrophil Count 4.6 X10^3/uL (2.0-7.7); Basophil# 0.01 X10^3/uL; Basophil% 0.2 % (0-1); Eosinophil# 0.01 X10^3/uL; Eosinophils% 0.2 % (0-5); Hematocrit 34.3 % (37-47); Hemoglobin 11.8 g/dL (12.0-15.0); Lymphocyte % 24.3 % (19-41); Mean Corp Hgb Conc 34.4 g/dL (32-36); Mean Corpuscular Hgb 30.6 pg (27.0-32.0); Mean Corpuscular Volume 89.1 fL (81-99); Mean Platelet Vol. 11.9 fl (6.2-12.0); Monocyte# 0.31 X10^3/uL; Monocyte% 4.7 % (0-10); NRBC Flagged by Analyzer 0 % (0-5); Neutrophil # 4.63 X10^3/uL (2.7-7.7); Neutrophil % 70.3 % (47-70); Platelet Count 192 K/mm3 (150-450); RBC Distribution Width SD 42.4 fl (35.1-43.9); Red Blood Count 3.85 M/mm3 (4.2-5.4); White Blood Count 6.6 K/mm3 (4.4-11.0)
[2024-11-25] MEDS: Lidocaine 2% Viscous15 ML UDC 15 ML PO (22:45)
[2024-11-25] MEDS: Mag Hydrox/Al Hydrox/Simeth 30 ML UDC PO (22:45)
[2024-11-25 23:02] LABS: ALB/GLOB Ratio 0.9 RATIO (0.9-2.4); AST(SGOT) 62 U/L (15-37); Alanine Aminotransfer ALT/SGPT 56 U/L (13-56); Albumin, Serum 3.2 g/dL (3.2-5.0); Alkaline Phosphatase 103 U/L (45-117); Anion Gap 10 (5-15); BUN 12 mg/dL (7-18); BUN/Creat Ratio 14.4 RATIO (10-20); Calcium,Total 8.7 mg/dL (8.5-10.1); Chloride 109 mmol/L (98-107); Creatinine, Serum 0.83 mg/dL (0.55-1.02); EST Glomerular Filtration Rate 83 mL/min (>60); Est Glom Filt Rate - Afr Amer 101 mL/min (>60); Estimated Creatinine Clearance 101.33 ml/min; Globulin 3.7 g/dL (2.2-4.2); Glucose 248 mg/dL (74-106); Lipase 56 U/L (13-75); Potassium 3.6 mmol/L (3.5-5.1); Protein, Total 6.9 g/dL (6.4-8.2); Sodium Level 138 mmol/L (136-145)
[2024-11-25] MEDS: Morphine 4 MG/ML Syringe IM (23:15)
== END 2024-11-25 23:31 | disposition home or self-care (01) ==
PROVIDERS: Emergency Provider Emergency Medicine; Visit Provider Emergency Medicine
DX: R10.10 Upper abdominal pain, unspecified (principal); F31.9 Bipolar disorder, unspecified; K31.84 Gastroparesis; D64.9 Anemia, unspecified; K21.9 Gastro-esophageal reflux disease without esophagitis; F41.9 Anxiety disorder, unspecified; M79.7 Fibromyalgia; G25.81 Restless legs syndrome; E78.00 Pure hypercholesterolemia, unspecified; F17.290 Nicotine dependence, other tobacco product, uncomplicated; Z88.1 Allergy status to other antibiotic agents; Z85.41 Personal history of malignant neoplasm of cervix uteri; Z87.11 Personal history of peptic ulcer disease; Z87.19 Personal history of other diseases of the digestive system; Z90.49 Acquired absence of other specified parts of digestive tract; Z79.899 Other long term (current) drug therapy; Z90.710 Acquired absence of both cervix and uterus
CPT/HCPCS: 80053; 81001; 83690; 85025; 96372; 99282; A4216

== ENCOUNTER 2024-12-29 20:20 | Emergency (ER) | payer MEDICAID, SELFPAY ==
[2024-12-29 20:21] VITALS: BP 182/108; PULSE 98; RESP 16; TEMP 36.4; O2SAT 98; BMI 35.1
[2024-12-29] MEDS: 0.9% Normal Saline (1000mL) 1,000 ML 999 ML IV (21:18)
[2024-12-29] MEDS: Metoclopramide 10 MG/2 ML Vial IV (21:27)
[2024-12-29] MEDS: Morphine 4 MG/ML Syringe IV (21:28)
[2024-12-29 21:41] LABS: Absolute Lymphocyte Count 1.22 X10^3/uL (0.83-4.51); Absolute Neutrophil Count 7.4 X10^3/uL (2.0-7.7); Basophil# 0.01 X10^3/uL; Basophil% 0.1 % (0-1); Eosinophil# 0.09 X10^3/uL; Hematocrit 37.1 % (37-47); Hemoglobin 13.4 g/dL (12.0-15.0); Lymphocyte # 1.22 X10^3/ul (0.83-4.51); Lymphocyte % 13.1 % (19-41); Mean Corp Hgb Conc 36.1 g/dL (32-36); Mean Corpuscular Hgb 32.2 pg (27.0-32.0); Mean Corpuscular Volume 89.2 fL (81-99); Monocyte# 0.55 X10^3/uL; Monocyte% 5.9 % (0-10); NRBC Flagged by Analyzer 0 % (0-5); Neutrophil # 7.39 X10^3/uL (2.7-7.7); Neutrophil % 79.5 % (47-70); Platelet Count 246 K/mm3 (150-450); RBC Distribution Width CV 13.3 % (11.6-14.6); RBC Distribution Width SD 43.5 fl (35.1-43.9); Red Blood Count 4.16 M/mm3 (4.2-5.4); White Blood Count 9.3 K/mm3 (4.4-11.0)
--- NOTE | 2024-12-29 22:05 | ED.VIS.GI ---
HPI HPI - GI History of Present Illness Chief Complaint: Nausea/Vomiting Narrative Narrative: 34-year-old female past medical history of gastroparesis, states she cannot see a specialist till the end of January which is approximately 6 weeks from now presents with nausea and vomiting that started about 2 hours ago. She states that this is a flareup of her gastroparesis. Of note, she has been seen in the emergency department previously where she states she usually gets Reglan, morphine, IV fluids, and it settles her down. She can be good for 3 to 4 days, but then it flares up again. She states that her physicians always tell her to come to the emergency department when this acts up. She had been taking Reglan and she has Zofran at home as well, but was unable to keep them down this evening. She presents with diffuse abdominal pain as well as nausea and vomiting for the last 2 hours. No exacerbating or alleviating factors. She denies any hematemesis. She had a loose stool this morning as well. [facility] Medical History Gastroparesis Pancreatitis Right knee pain Avulsion fracture of lateral malleolus of right fibula Left renal stone Smoker Bilateral renal stones Wears glasses Wears dentures Alcohol use Marijuana use History of renal disease Fatty liver High cholesterol Easy bruising Restless legs Syncope Gastric reflux Environmental and seasonal allergies Leg cramps History of edema History of echocardiogram History of stress test Cardiology follow-up encounter Hypertension Peptic ulcer of stomach Migraine Chronic interstitial cystitis Endometriosis Bipolar disorder Anxiety Depression Back pain Conversion disorder History of cervical cancer Kidney stone Fibromyalgia Home Medications ?Medication ?Instructions ?Recorded ?Last Taken ?Type escitalopram oxalate 20 mg tablet 20 mg PO DAILY DEPRESSION 09/22/21 10/27/23 History (Lexapro) quetiapine 50 mg tablet,extended 200 mg PO QHS MOOD 01/30/23 10/27/23 History release 24 hr tizanidine 4 mg tablet 4 mg PO TID PRN MUSCLE SPASMS 10/28/23 10/27/23 History propranolol 10 mg tablet 10 mg PO DAILY 12/12/23 Unknown History atogepant 60 mg tablet (Qulipta) 60 mg PO DAILY 04/21/24 Unknown History rimegepant 75 mg disintegrating 75 mg PO ONCE PRN migraine headache 04/21/24 Unknown History tablet (Nurtec ODT) triamcinolone acetonide 55 mcg 2 spray intranasal QDAY #16.9 mL 07/25/24 Unknown Rx nasal spray aerosol (Nasacort) ondansetron 4 mg disintegrating 4 mg PO Q8H PRN PRN Nausea #10 tabs 07/30/24 Unknown Rx tablet MAGIC MOUTH WASH (BMX) 180 mL 5 - 10 ml PO Q6H PRN PRN gastritis 11/04/24 Unknown Rx suspension #180 mL metoclopramide HCl 5 mg tablet 5 mg PO Q6H PRN nausea and 11/04/24 11/06/24 17:30 Rx (Reglan) vomiting #20 tabs oxycodone-acetaminophen 5 mg-325 1 tab PO Q4H PRN pain 11/06/24 Unknown History mg tablet (Percocet) pantoprazole 40 mg tablet,delayed 40 mg PO BID 11/06/24 Unknown History release potassium chloride 20 mEq 20 meq PO DAILY 11/06/24 Unknown History tablet,extended release(part/cryst) promethazine 25 mg tablet 25 mg PO TID PRN PRN 11/06/24 Unknown History nausea/vomiting quetiapine 200 mg tablet,extended 200 mg PO QPM 11/06/24 Unknown History release 24 hr sulfamethoxazole-trimethoprim 1 tab PO TID 11/06/24 Unknown History codeine 10 mg-guaifenesin 100 mg/5 10 ml PO 4X/DAY PRN flu symptoms 7 11/22/24 Unknown Rx mL oral liquid (Guaifenesin AC) days #280 mL prednisone 20 mg tablet 40 mg (2 x 20 mg) PO DAILY 5 days 11/22/24 Unknown Rx #10 tabs Allergy/AdvReac Type Severity Reaction Status Date / Time amitriptyline Allergy MUSCLE Verified 12/29/24 20:23 SPASMS Bleach (Sodium Hypochlorite) Allergy Hives Verified 12/29/24 20:23 codeine Allergy Hives Verified 12/29/24 20:23 ketorolac (From Toradol) Allergy Itching Verified 12/29/24 20:23 nitrofurantoin (From Allergy Anaphylaxis Verified 12/29/24 20:23 Macrodantin) NSAIDS (Non-Steroidal Allergy Other Verified 12/29/24 20:23 Anti-Inflamma oseltamivir (From Tamiflu) Allergy SOB Verified 12/29/24 20:23 doxycycline AdvReac Vomiting Verified 12/29/24 20:23 Family History Mother Hypertension Migraine Grandmother CVA (cerebral vascular accident) Grandfather Diabetes Father Myocardial infarction Surgical History History of cystoscopy S/P laparoscopic surgery History of hysterectomy Hx of cholecystectomy Social History household members: significant other Smoking Status: Current every day smoker tobacco type: e-cigarettes alcohol intake: current details: occasionally substance use type: does not use caffeine: Yes what type of physical activity do you participate in: walking frequency: 1-2 times per week seatbelt use: always do you feel safe at home: Yes additional social history: Single ROS ROS ED ROS Narrative Review of systems positive for nausea and vomiting, diffuse abdominal pain. No fevers or chills, no hematemesis or hematochezia. Positive loose stool today. EXAM Physical Exam Narrative Exam Narrative: Afebrile. Vital signs noted. Nontoxic-appearing. Initially on entering the room the lights are out and she is standing, bent over the bed facedown. She was able to transfer to the cot. Cardiovascular examination reveals a regular rate and rhythm. Lungs are clear to auscultation bilaterally. The abdomen is soft, with minimal diffuse tenderness to palpation and positive bowel sounds. No rebound or guarding. Neurological examination is nonfocal and nonlateralizing. Const Vital Signs: 12/29/24 20:21 Temperature 97.6 F L Temperature Source Temporal Pulse Rate 98 Respiratory Rate 16 Blood Pressure 182/108 H Blood Pressure Mean 132 Pulse Ox 98 Oxygen Delivery Method Room Air MDM MDM MDM Narrative Medical decision making narrative: Differential diagnosis includes but not limited to exacerbation of gastroparesis versus pancreatitis versus bowel obstruction. I doubt dehydration as she has only been vomiting for 2 hours. I did review her prior visit which was around November 25, approximately 1 week ago. At that time they were unable to obtain IV access so she received intramuscular morphine. I did order CBC CMP, and lipase. I do feel she needs a test I do not feel that she currently needs any imaging. She was seen ambulating to the bathroom without difficulty. She was administered morphine and Reglan and a bolus of normal saline intravenously. I reviewed her laboratory work and she has normal white count at 9.3 with hemoglobin 13.4. I reviewed her CMP, and sodium is normal at 139, potassium 3.7 and chloride 104. CO2 slightly low at 17.4. Glucose is appropriately elevated at 122 with an anion gap that slightly elevated at 18. In comparison to prior laboratories, she usually has a higher chloride that is elevated. She does have a chronically low CO2. However I do not think she is in DKA. Lipase is normal at 22. I do not feel she requires any imaging currently. She requested more pain medication but I do not feel that she needs more narcotic pain medication. Instead, she will be given Ativan 1 mg intravenously. I feel she can be discharged to follow-up with her gastroparesis specialist and/or her primary care provider. Disposition is discharged home in stable condition. History & Record Review Discussion w/independent historian: Patient Lab Data Attestation: I reviewed the patient's lab results. Labs: Laboratory Results - last 24 hr 12/29/24 21:33 WBC 9.3 RBC 4.16 L Hgb 13.4 Hct 37.1 MCV 89.2 MCH 32.2 H MCHC 36.1 H RDW Std Deviation 43.5 RDW Coeff of Romario 13.3 Plt Count 246 MPV 11.0 Immature Gran % (Auto) 0.400 Neut % (Auto) 79.5 H Lymph % (Auto) 13.1 L [place] % (Auto) 5.9 Eos % (Auto) 1.0 Baso % (Auto) 0.1 Absolute Neuts (auto) 7.4 Absolute Lymphs (auto) 1.22 Nucleated RBC % 0 Sodium 139 Potassium 3.7 Chloride 104 Carbon Dioxide 17.4 L Anion Gap 18 H BUN 5 Creatinine 0.88 Estim Creat Clear Calc 95.88 Est GFR (MDRD) Non-Af 88 BUN/Creatinine Ratio 6.1 L Glucose 122 H Calcium 10.1 Total Bilirubin 0.40 AST 72 H ALT 28 Alkaline Phosphatase 135 H Total Protein 8.4 Albumin 4.6 Globulin 3.8 Albumin/Globulin Ratio 1.2 Lipase 22 Discharge Plan Triage Chief Complaint: Nausea/Vomiting ED Provider: Hayder Hudson Dx/Rx/DC Orders Clinical Impression: Nausea and vomiting, Gastroparesis, Abdominal pain Instructions: Gastroparesis, ED Abdominal Pain Unkn Cause Fem, ED Diet Vomiting Diarrhea, ED Vomiting (Adult) Prescriptions: No Action propranolol 10 mg tablet 10 mg PO DAILY Patient Comments: TAKE 1 TABLET BY MOUTH ONCE DAILY Nurtec ODT 75 mg tablet,disintegrating 75 mg PO ONCE PRN (Reason: migraine headache) Rx Instructions: as a single dose Qulipta 60 mg tablet 60 mg PO DAILY triamcinolone acetonide [Nasacort] 55 mcg aerosol,spray 2 spray intranasal QDAY Qty: 16.9 0RF Rx Instructions: administer into each nostril escitalopram oxalate [Lexapro] 20 mg Tablet 20 mg PO DAILY quetiapine 50 mg tablet extended release 24 hr 200 mg PO QHS tizanidine 4 mg tablet 4 mg PO TID PRN (Reason: MUSCLE SPASMS ) Patient Comments: PT STATES THAT THEY USUALLY TAKE ALL THREE TABLETS TOGETHER ONCE DAILY AT BEDTIME BECAUSE IT MAKES THEM DROWSY ( OF 10-28-23) metoclopramide HCl [Reglan] 5 mg tablet 5 mg PO Q6H PRN (Reason: nausea and vomiting) Qty: 20 0RF MAGIC MOUTH WASH (BMX) 180 mL suspension 5 - 10 ml PO Q6H PRN PRN (Reason: gastritis) Qty: 180 0RF Rx Instructions: diphenhydramine 12.5 mg/5 mL oral liquid 60 mL; aluminum-mag hydroxide-simethicone 400 mg-400 mg-40 mg/5 mL oral susp 60 mL; Lidocaine Viscous 2 % mucosal solution 60 mL; Per 180 mL potassium chloride 20 mEq tablet,ER particles/crystals 20 meq PO DAILY pantoprazole 40 mg tablet,delayed release (DR/EC) 40 mg PO BID promethazine 25 mg tablet 25 mg PO TID PRN PRN (Reason: nausea/vomiting) quetiapine 200 mg tablet extended release 24 hr 200 mg PO QPM sulfamethoxazole-trimethoprim [Bactrim] 1 tab PO TID oxycodone-acetaminophen [Percocet] 5-325 mg tablet 1 tab PO Q4H PRN (Reason: pain) Patient Comments: patient needs to get it filled, currently out but has not made it to her pharmacy to pick it up prednisone 20 mg tablet 40 mg PO DAILY 5 Days Qty: 10 0RF codeine-guaifenesin [Guaifenesin AC] 10-100 mg/5 mL liquid 10 ml PO 4X/DAY PRN (Reason: flu symptoms) 7 Days Qty: 280 0RF ondansetron 4 mg tablet,disintegrating 4 mg PO Q8H PRN PRN (Reason: Nausea) Qty: 10 0RF Primary Care Provider: Dean Varghese Referrals: Dean Varghsee, [Primary Care Provider] - 1-2 Days if not improving Activity Restrictions/Additional Instructions: Give your stomach to rest tonight. Continue your home medications of Reglan and Zofran. Follow-up with your gastroparesis specialist as soon as possible. Otherwise, follow-up with your primary care provider. Print Language: Azeri Disposition Disposition: Home, Self Care
[2024-12-29 22:33] LABS: ALB/GLOB Ratio 1.2 RATIO (0.9-2.4); AST(SGOT) 72 U/L (<=31); Alanine Aminotransfer ALT/SGPT 28 U/L (<=34); Albumin, Serum 4.6 g/dL (3.5-5.0); Alkaline Phosphatase 135 U/L (35-104); Anion Gap 18 (5-15); BUN 5 mg/dL (4-19); BUN/Creat Ratio 6.1 RATIO (10-20); Calcium,Total 10.1 mg/dL (7.6-11.0); Carbon Dioxide 17.4 mmol/L (21.0-32.0); Chloride 104 mmol/L (98-108); Creatinine, Serum 0.88 mg/dL (0.70-1.20); EST Glomerular Filtration Rate 88 (>60); Estimated Creatinine Clearance 95.88 ml/min (50-250); Globulin 3.8 g/dL (2.2-4.2); Glucose 122 mg/dL (70-99); Lipase 22 U/L (13-75); Potassium 3.7 mmol/L (3.3-5.1); Protein, Total 8.4 g/dL (5.9-8.4); Sodium Level 139 mmol/L (133-145)
[2024-12-29] MEDS: Lorazepam 2 MG/ML WCH Syringe 1 MG IV (22:59)
[2024-12-29 23:01] VITALS: BP 136/89; PULSE 79; RESP 18; TEMP 37.1; O2SAT 98
== END 2024-12-29 23:02 | disposition home or self-care (01) ==
PROVIDERS: Emergency Provider Emergency Medicine; Visit Provider Emergency Medicine
DX: R11.2 Nausea with vomiting, unspecified (principal); F31.9 Bipolar disorder, unspecified; R10.9 Unspecified abdominal pain; K31.84 Gastroparesis; I10 Essential (primary) hypertension; F41.9 Anxiety disorder, unspecified; K21.9 Gastro-esophageal reflux disease without esophagitis; M79.7 Fibromyalgia; G25.81 Restless legs syndrome; G43.909 Migraine, unspecified, not intractable, without status migrainosus; F17.290 Nicotine dependence, other tobacco product, uncomplicated; Z87.19 Personal history of other diseases of the digestive system; Z90.49 Acquired absence of other specified parts of digestive tract; Z87.11 Personal history of peptic ulcer disease; Z85.41 Personal history of malignant neoplasm of cervix uteri; Z79.899 Other long term (current) drug therapy
CPT/HCPCS: 80053; 83690; 85025; 96361; 96374; 96375; 99283; A4216

== ENCOUNTER 2025-01-22 11:24 | Emergency (ER) | payer MEDICAID, SELFPAY ==
[2025-01-22 11:26] VITALS: BP 135/85; PULSE 66; RESP 15; TEMP 35.7; O2SAT 99; BMI 35.9
--- NOTE | 2025-01-22 12:01 | CT_ITS ---
PROCEDURE: ABDOMEN/PELVIS WITHOUT CONT 01/22/2025 REASON FOR EXAM: 34-year-old female, right flank pain with painful urination and hematuria x5 days. History of cervical cancer and interstitial cystitis. TECHNIQUE: Abdomen and pelvis CT without intravenous contrast. Noncontrast technique limits evaluation of the abdominal and pelvic viscera. Coronal and Sagittal reconstruction series were provided. One or more dose reduction techniques were used (e.g., Automated exposure control, adjustment of the mA and/or kV according to patient size, use of iterative reconstruction technique). PATIENT PREPARATION: Per protocol ORAL CONTRAST TYPE: None. COMPARISON: CT abdomen pelvis 11/10/2024. FINDINGS: Lung bases: The heart is normal in size. The lung bases are clear. Liver: Mild hepatomegaly with diffuse hepatic steatosis. No biliary ductal dilation. Gallbladder: Prior cholecystectomy. Spleen: Normal in size. Pancreas: The unopacified pancreas is unremarkable. Adrenals: Unremarkable. Kidneys: No hydronephrosis or nephrolithiasis. Bladder: Mildly distended and unremarkable. Reproductive Organs: Prior hysterectomy. Bowel: The bowel loops are normal in caliber. No ascites or pneumoperitoneum. Normal appendix. Lymph nodes: Visualization is limited without the use of IV contrast. No suspicious lymphadenopathy. Vasculature: The abdominal aorta and IVC contours are normal. Noncontrast technique limits evaluation. Bones: No aggressive osseous lesions. CT/Abdomen/Pelvis without Cont IMPRESSION: 1. No acute abdominopelvic finding on noncontrast examination. 2. Mild hepatomegaly with diffuse hepatic steatosis. Reading Location: [id number]
--- NOTE | 2025-01-22 12:02 | EX.ED.DYSGE1 ---
HPI History of Present Illness Chief Complaint: Complaint Informant: patient Narrative Narrative: 34-year-old female states that on Thursday she woke with some urinary frequency dysuria and cramping. She had a regular family practice appointment that day and they checked her urine which dipped negative. She states that now she has developed pain in her left flank. She notes a history of kidney stones as well as UTIs. She sees Dr. Lagunas for urology. She denies fever. She notes nausea. She denies any rashes. No bowel movement changes. PFSH PFS Medical History Gastroparesis Pancreatitis Right knee pain Avulsion fracture of lateral malleolus of right fibula Left renal stone Smoker Bilateral renal stones Wears glasses Wears dentures Alcohol use Marijuana use History of renal disease Fatty liver High cholesterol Easy bruising Restless legs Syncope Gastric reflux Environmental and seasonal allergies Leg cramps History of edema History of echocardiogram History of stress test Cardiology follow-up encounter Hypertension Peptic ulcer of stomach Migraine Chronic interstitial cystitis Endometriosis Bipolar disorder Anxiety Depression Back pain Conversion disorder History of cervical cancer Kidney stone Fibromyalgia Home Medications ?Medication ?Instructions ?Recorded ?Last Taken ?Type escitalopram oxalate 20 mg tablet 20 mg PO DAILY DEPRESSION 09/22/21 10/27/23 History (Lexapro) quetiapine 50 mg tablet,extended 200 mg PO QHS MOOD 01/30/23 10/27/23 History release 24 hr tizanidine 4 mg tablet 4 mg PO TID PRN MUSCLE SPASMS 10/28/23 10/27/23 History propranolol 10 mg tablet 10 mg PO DAILY 12/12/23 Unknown History atogepant 60 mg tablet (Qulipta) 60 mg PO DAILY 04/21/24 Unknown History rimegepant 75 mg disintegrating 75 mg PO ONCE PRN migraine headache 04/21/24 Unknown History tablet (Nurtec ODT) triamcinolone acetonide 55 mcg 2 spray intranasal QDAY #16.9 mL 07/25/24 Unknown Rx nasal spray aerosol (Nasacort) ondansetron 4 mg disintegrating 4 mg PO Q8H PRN PRN Nausea #10 tabs 07/30/24 Unknown Rx tablet MAGIC MOUTH WASH (BMX) 180 mL 5 - 10 ml PO Q6H PRN PRN gastritis 11/04/24 Unknown Rx suspension #180 mL metoclopramide HCl 5 mg tablet 5 mg PO Q6H PRN nausea and 11/04/24 11/06/24 17:30 Rx (Reglan) vomiting #20 tabs oxycodone-acetaminophen 5 mg-325 1 tab PO Q4H PRN pain 11/06/24 Unknown History mg tablet (Percocet) pantoprazole 40 mg tablet,delayed 40 mg PO BID 11/06/24 Unknown History release potassium chloride 20 mEq 20 meq PO DAILY 11/06/24 Unknown History tablet,extended release(part/cryst) promethazine 25 mg tablet 25 mg PO TID PRN PRN 11/06/24 Unknown History nausea/vomiting quetiapine 200 mg tablet,extended 200 mg PO QPM 11/06/24 Unknown History release 24 hr codeine 10 mg-guaifenesin 100 mg/5 10 ml PO 4X/DAY PRN flu symptoms 7 11/22/24 Unknown Rx mL oral liquid (Guaifenesin AC) days #280 mL prednisone 20 mg tablet 40 mg (2 x 20 mg) PO DAILY 5 days 11/22/24 Unknown Rx #10 tabs granisetron HCl 1 mg tablet 1 mg PO Q12H PRN 01/22/25 Unknown History olanzapine 10 mg disintegrating mg PO 01/22/25 Unknown History tablet oxybutynin chloride 10 mg 10 mg PO 01/22/25 Unknown History tablet,extended release 24 hr sucralfate 1 gram tablet 1 g PO BID 01/22/25 Unknown History Allergy/AdvReac Type Severity Reaction Status Date / Time amitriptyline Allergy MUSCLE Verified 01/22/25 11:26 SPASMS Bleach (Sodium Hypochlorite) Allergy Hives Verified 01/22/25 11:26 codeine Allergy Hives Verified 01/22/25 11:26 ketorolac (From Toradol) Allergy Itching Verified 01/22/25 11:26 nitrofurantoin (From Allergy Anaphylaxis Verified 01/22/25 11:26 Macrodantin) NSAIDS (Non-Steroidal Allergy Other Verified 01/22/25 11:26 Anti-Inflamma oseltamivir (From Tamiflu) Allergy SOB Verified 01/22/25 11:26 doxycycline AdvReac Vomiting Verified 01/22/25 11:26 Family History Mother Hypertension Migraine Grandmother CVA (cerebral vascular accident) Grandfather Diabetes Father Myocardial infarction Surgical History History of cystoscopy S/P laparoscopic surgery History of hysterectomy Hx of cholecystectomy Social History household members: significant other Smoking Status: Current every day smoker tobacco type: e-cigarettes alcohol intake: current details: occasionally substance use type: does not use caffeine: Yes what type of physical activity do you participate in: walking frequency: 1-2 times per week seatbelt use: always do you feel safe at home: Yes additional social history: Single ROS ROS ED Constitutional Constitutional ED: Denies chills, fever(s) or weight loss Eyes Eyes: Denies change in vision or diplopia ENT ENT ED: Denies ear pain, rhinorrhea or sore throat Cardiovascular Cardiovascular: Denies chest pain, orthopnea, palpitations or racing heartbeat Respiratory/Chest Respiratory/Chest: Denies cough, dyspnea or orthopnea Gastrointestinal Gastrointestinal: Reports abdominal pain and nausea; Denies diarrhea or vomiting Genitourinary Genitourinary ED: Reports dysuria and urinary frequency; Denies hematuria Musculoskeletal Musculoskeletal: Reports back pain; Denies arthralgias or myalgias Integumentary Denies abscess or rash Neurologic Neurologic: Denies headache(s) or weakness Psychiatric Psychiatric: Denies anxiety, depression, suicidal ideation or suicidal thoughts Endocrine Endocrinology: Denies polydipsia, polyphagia or polyuria Allergic/Immunologic Allergic/Immunologic ED: Denies mouth swelling, tongue swelling or urticaria EXAM Physical Exam Const Vital Signs: 01/22/25 11:26 01/22/25 13:25 Temperature 96.3 F L Temperature Source Temporal Pulse Rate 66 85 Respiratory Rate 15 14 Blood Pressure 135/85 H 155/92 H Blood Pressure Mean 101 113 Pulse Ox 99 96 Oxygen Delivery Method Room Air Room Air Positive well nourished, well developed and obese General Appearance ED: well developed and NAD Nutritional Appearance: obese HEENT Reports normocephalic, head/scalp atraumatic and moist mucous membranes Eyes PERRL and EOMs intact bilaterally Neck no lymphadenopathy, supple and no JVD Resp normal respiratory effort and clear to auscultation bilaterally Cardio regular rate, regular rhythm and no murmurs GI GI Narrative: Abdomen is soft. Inspection: Negative for abdominal distention Auscultation: normoactive bowel sounds Palpation: soft and tender RLQ; Negative for guarding or rebound tenderness present Back/Spine Back/Spine Narrative: Normal range of motion. General Back: CVA tenderness right Extremity normal to inspection General Extremety ED: Negative for edema General Extremity: Negative for edema Neuro oriented x3 and CN's II-XII intact bilaterally Sensorium / Orientation: alert Motor Exam: strength 5/5 throughout Psych mental status grossly normal Mood & Affect: Negative for depressed or tearful Skin no rashes or lesions noted and no wounds MDM MDM MDM Narrative Medical decision making narrative: Differential diagnosis includes but not limited to UTI pyelonephritis ureterolithiasis hydronephrosis muscular strain spasm colitis diverticulitis abscess ovarian cyst Basic blood work shows a normal white count normal creatinine. Glucose of 110. Urinalysis 5-10 whites no bacteria negative nitrates. We can send this for culture. CT abdomen pelvis does not demonstrate any obvious ureterolithiasis or hydronephroureter. Please see radiologist read. At this point I believe the patient can be discharged home. She has follow-up on Thursday with urology. She can follow-up with primary care if not improving return for worsening History & Record Review Discussion w/independent historian: Patient Lab Data Attestation: I reviewed the patient's lab results. Labs: Laboratory Results - last 24 hr 01/22/25 01/22/25 11:50 12:33 WBC 7.5 RBC 4.05 L Hgb 12.8 Hct 38.4 MCV 94.8 MCH 31.6 MCHC 33.3 RDW Std Deviation 47.8 H RDW Coeff of Romario 13.9 Plt Count 215 MPV 11.2 Immature Gran % (Auto) 0.400 Neut % (Auto) 71.2 H Lymph % (Auto) 23.6 Stanton % (Auto) 3.8 Eos % (Auto) 0.7 Baso % (Auto) 0.3 Absolute Neuts (auto) 5.3 Absolute Lymphs (auto) 1.76 Nucleated RBC % 0 Sodium 140 Potassium 4.0 Chloride 105 Carbon Dioxide 21.3 Anion Gap 13 BUN 6 Creatinine 0.68 L Estim Creat Clear Calc 125.64 Est GFR (MDRD) Non-Af 117 BUN/Creatinine Ratio 8.9 L Glucose 110 H Calcium 9.8 Urine Color Yellow Urine Clarity Clear Urine pH 8.0 Ur Specific Perley 1.010 Urine Protein Negative Urine Glucose (UA) Normal Urine Ketones Negative Urine Occult Blood Negative Urine Nitrite Negative Urine Bilirubin Negative Urine Urobilinogen Normal Ur Leukocyte Esterase 100 H Urine RBC 0 SEEN Urine WBC 5-10 SEEN Ur Squamous Epith Cells 0-5 SEEN Urine Bacteria 0 SEEN Urine Mucus 0 SEEN Radiography Diagnostic Testing: Clinical Impression(s) from Imaging Studies Abdomen/Pelvis CT 01/22/25 12:01 IMPRESSION: 1. No acute abdominopelvic finding on noncontrast examination. 2. Mild hepatomegaly with diffuse hepatic steatosis. Reading Location: [id number] Discharge Plan Triage Chief Complaint: Complaint ED Provider: Awais La Dx/Rx/DC Orders Clinical Impression: Acute flank pain, Urinary frequency Instructions: ED Flank Pain, Uncertain Cause Prescriptions: No Action propranolol 10 mg tablet 10 mg PO DAILY Patient Comments: TAKE 1 TABLET BY MOUTH ONCE DAILY Nurtec ODT 75 mg tablet,disintegrating 75 mg PO ONCE PRN (Reason: migraine headache) Rx Instructions: as a single dose Qulipta 60 mg tablet 60 mg PO DAILY triamcinolone acetonide [Nasacort] 55 mcg aerosol,spray 2 spray intranasal QDAY Qty: 16.9 0RF Rx Instructions: administer into each nostril escitalopram oxalate [Lexapro] 20 mg Tablet 20 mg PO DAILY quetiapine 50 mg tablet extended release 24 hr 200 mg PO QHS tizanidine 4 mg tablet 4 mg PO TID PRN (Reason: MUSCLE SPASMS ) Patient Comments: PT STATES THAT THEY USUALLY TAKE ALL THREE TABLETS TOGETHER ONCE DAILY AT BEDTIME BECAUSE IT MAKES THEM DROWSY ( OF 10-28-23) metoclopramide HCl [Reglan] 5 mg tablet 5 mg PO Q6H PRN (Reason: nausea and vomiting) Qty: 20 0RF MAGIC MOUTH WASH (BMX) 180 mL suspension 5 - 10 ml PO Q6H PRN PRN (Reason: gastritis) Qty: 180 0RF Rx Instructions: diphenhydramine 12.5 mg/5 mL oral liquid 60 mL; aluminum-mag hydroxide-simethicone 400 mg-400 mg-40 mg/5 mL oral susp 60 mL; Lidocaine Viscous 2 % mucosal solution 60 mL; Per 180 mL potassium chloride 20 mEq tablet,ER particles/crystals 20 meq PO DAILY pantoprazole 40 mg tablet,delayed release (DR/EC) 40 mg PO BID promethazine 25 mg tablet 25 mg PO TID PRN PRN (Reason: nausea/vomiting) quetiapine 200 mg tablet extended release 24 hr 200 mg PO QPM oxycodone-acetaminophen [Percocet] 5-325 mg tablet 1 tab PO Q4H PRN (Reason: pain) Patient Comments: patient needs to get it filled, currently out but has not made it to her pharmacy to pick it up prednisone 20 mg tablet 40 mg PO DAILY 5 Days Qty: 10 0RF codeine-guaifenesin [Guaifenesin AC] 10-100 mg/5 mL liquid 10 ml PO 4X/DAY PRN (Reason: flu symptoms) 7 Days Qty: 280 0RF granisetron HCl 1 mg tablet 1 mg PO Q12H PRN oxybutynin chloride 10 mg tablet extended release 24hr 10 mg PO sucralfate 1 gram tablet 1 g PO BID olanzapine 10 mg tablet,disintegrating PO ondansetron 4 mg tablet,disintegrating 4 mg PO Q8H PRN PRN (Reason: Nausea) Qty: 10 0RF Primary Care Provider: Dean Varghese Referrals: Jeannette Lagunas MD [Med Staff - Active Staff] - Keep [facility] appointment Dean Varghese DO [Primary Care Provider] - 1 Week if not improving Print Language: Slovak Disposition Disposition: Home, Self Care
[2025-01-22 12:07] LABS: Bacteria 0 SEEN /hpf (None Seen); Mucous, Urine 0 SEEN /hpf (<or=2+); Red Blood Cells-Urine 0 SEEN /hpf (0-5)
[2025-01-22 12:08] LABS: Color, Urine Yellow (Yellow); Glucose, Dipstick Normal (Normal); Ketone-Dipstick Negative (Negative); Leukocyte Esterase-Dipstick 100 /ul (Negative); Nitrite-Dipstick Negative (Negative); Occult Blood-Urine Negative /ul (Negative); Protein-Dipstick Negative (Negative); Urine Bilirubin Dipstick Negative (Negative); Urine Clarity Clear (Clear); Urine Urobilinogen Normal (Normal)
[2025-01-22 12:13] LABS: Squamous Epithelial Cells - UA 0-5 SEEN /hpf (5-10); White Blood Cells 5-10 SEEN /hpf (0-5)
[2025-01-22] MEDS: Phenazopyridine 95 MG Tablet 190 MG PO (12:22)
[2025-01-22 12:38] LABS: Absolute Lymphocyte Count 1.76 X10^3/uL (0.83-4.51); Absolute Neutrophil Count 5.3 X10^3/uL (2.0-7.7); Basophil# 0.02 X10^3/uL; Basophil% 0.3 % (0-1); Eosinophil# 0.05 X10^3/uL; Eosinophils% 0.7 % (0-5); Hematocrit 38.4 % (37-47); Hemoglobin 12.8 g/dL (12.0-15.0); Lymphocyte # 1.76 X10^3/ul (0.83-4.51); Lymphocyte % 23.6 % (19-41); Mean Corp Hgb Conc 33.3 g/dL (32-36); Mean Corpuscular Hgb 31.6 pg (27.0-32.0); Mean Corpuscular Volume 94.8 fL (81-99); Mean Platelet Vol. 11.2 fl (6.2-12.0); Monocyte# 0.28 X10^3/uL; Monocyte% 3.8 % (0-10); NRBC Flagged by Analyzer 0 % (0-5); Neutrophil # 5.32 X10^3/uL (2.7-7.7); Neutrophil % 71.2 % (47-70); Platelet Count 215 K/mm3 (150-450); RBC Distribution Width CV 13.9 % (11.6-14.6); RBC Distribution Width SD 47.8 fl (35.1-43.9); Red Blood Count 4.05 M/mm3 (4.2-5.4); White Blood Count 7.5 K/mm3 (4.4-11.0)
[2025-01-22 13:06] LABS: Anion Gap 13 (5-15); BUN 6 mg/dL (4-19); BUN/Creat Ratio 8.9 RATIO (10-20); Calcium,Total 9.8 mg/dL (7.6-11.0); Carbon Dioxide 21.3 mmol/L (21.0-32.0); Chloride 105 mmol/L (98-108); Creatinine, Serum 0.68 mg/dL (0.70-1.20); EST Glomerular Filtration Rate 117 (>60); Estimated Creatinine Clearance 125.64 ml/min (50-250); Glucose 110 mg/dL (70-99); Sodium Level 140 mmol/L (133-145)
[2025-01-22 13:25] VITALS: BP 155/92; PULSE 85; RESP 14; O2SAT 96
[2025-01-22 15:20] VITALS: BP 142/75; PULSE 61; RESP 16; TEMP 37; O2SAT 99
== END 2025-01-22 15:21 | disposition home or self-care (01) ==
PROVIDERS: Emergency Provider Emergency Medicine; Visit Provider Emergency Medicine
DX: R10.9 Unspecified abdominal pain (principal); F31.9 Bipolar disorder, unspecified; R35.0 Frequency of micturition; R11.0 Nausea; R30.0 Dysuria; I10 Essential (primary) hypertension; F41.9 Anxiety disorder, unspecified; K21.9 Gastro-esophageal reflux disease without esophagitis; M79.7 Fibromyalgia; G25.81 Restless legs syndrome; G43.909 Migraine, unspecified, not intractable, without status migrainosus; E66.9 Obesity, unspecified; F17.290 Nicotine dependence, other tobacco product, uncomplicated; Z87.11 Personal history of peptic ulcer disease; Z87.19 Personal history of other diseases of the digestive system; Z87.442 Personal history of urinary calculi; Z87.440 Personal history of urinary (tract) infections; Z79.899 Other long term (current) drug therapy
CPT/HCPCS: 74176; 80048; 81001; 85025; 87086; 87088; 87186; 99283; A4216

== ENCOUNTER 2025-02-03 18:31 | Emergency (ER) | payer MEDICAID, SELFPAY ==
[2025-02-03 18:32] VITALS: BP 164/136; PULSE 97; RESP 16; TEMP 36.4; O2SAT 97; BMI 36.8
[2025-02-03 18:36] VITALS: BP 163/107
--- NOTE | 2025-02-03 18:57 | EX.ED.DYSGE1 ---
HPI History of Present Illness Chief Complaint: Abd Pain Detail of Chief Complaint: Periumbilical abdominal pain with nausea that started this morning Informant: patient Onset/Context/Timing Onset: Today and Hours Context: Sudden Onset Timing: Continuous Quality: Sharp Location: Periumbilical Current Severity: Mild Maximum Severity: Severe Worsened by: Pushing on it Relieved by: Nothing Associated Symptoms Associated Symptoms: Nausea and increased bowel movements Narrative Narrative: Patient is a 34-year-old woman. She has history of recurrent urinary tract infections and multiple kidney/ureteral stones. She was seen in October and end of December. She had CAT scans at that time that revealed no acute abnormality. Both radiologist commented that she has fatty liver. Patient denies fever, chills night sweats. She denies cardiac or respiratory symptoms. She does report periumbilical pain. It is sharp. It is continuous. She denies dysuria, frequency, urgency or hematuria. She denies back or flank pain. There is no history of trauma. She has not noted a rash. There is no history of umbilical hernia. Prior similar symptoms: No Recent Illness/Hospitalization: Yes [facility] Medical History Gastroparesis Pancreatitis Right knee pain Avulsion fracture of lateral malleolus of right fibula Left renal stone Smoker Bilateral renal stones Wears glasses Wears dentures Alcohol use Marijuana use History of renal disease Fatty liver High cholesterol Easy bruising Restless legs Syncope Gastric reflux Environmental and seasonal allergies Leg cramps History of edema History of echocardiogram History of stress test Cardiology follow-up encounter Hypertension Peptic ulcer of stomach Migraine Chronic interstitial cystitis Endometriosis Bipolar disorder Anxiety Depression Back pain Conversion disorder History of cervical cancer Kidney stone Fibromyalgia Medical History no medical history Home Medications ?Medication ?Instructions ?Recorded ?Last Taken ?Type escitalopram oxalate 20 mg tablet 20 mg PO DAILY DEPRESSION 09/22/21 10/27/23 History (Lexapro) tizanidine 4 mg tablet 4 mg PO TID PRN MUSCLE SPASMS 10/28/23 10/27/23 History propranolol 10 mg tablet 10 mg PO DAILY 12/12/23 Unknown History atogepant 60 mg tablet (Qulipta) 60 mg PO QHS 04/21/24 Unknown History rimegepant 75 mg disintegrating 75 mg PO ONCE PRN migraine headache 04/21/24 Unknown History tablet (Nurtec ODT) ondansetron 4 mg disintegrating 4 mg PO Q8H PRN PRN Nausea #10 tabs 07/30/24 Unknown Rx tablet MAGIC MOUTH WASH (BMX) 180 mL 5 - 10 ml PO Q6H PRN PRN gastritis 11/04/24 Unknown Rx suspension #180 mL metoclopramide HCl 5 mg tablet 5 mg PO Q6H PRN nausea and 11/04/24 11/06/24 17:30 Rx (Reglan) vomiting #20 tabs oxycodone-acetaminophen 5 mg-325 1 tab PO Q4H PRN pain 11/06/24 Unknown History mg tablet (Percocet) pantoprazole 40 mg tablet,delayed 40 mg PO BID 11/06/24 Unknown History release potassium chloride 20 mEq 20 meq PO DAILY 11/06/24 Unknown History tablet,extended release(part/cryst) promethazine 25 mg tablet 25 mg PO TID PRN PRN 11/06/24 Unknown History nausea/vomiting granisetron HCl 1 mg tablet 1 mg PO Q12H PRN 01/22/25 Unknown History olanzapine 10 mg disintegrating 10 mg PO QHS 01/22/25 Unknown History tablet sucralfate 1 gram tablet 1 g PO BID 01/22/25 Unknown History diphenhydramine HCl 12.5 mg/5 mL 12.5 mg PO PRN 02/03/25 Unknown History oral liquid mirabegron 50 mg tablet,extended 50 mg PO DAILY 02/03/25 Unknown History release 24 hr (Myrbetriq) Allergy/AdvReac Type Severity Reaction Status Date / Time amitriptyline Allergy MUSCLE Verified 02/03/25 18:32 SPASMS Bleach (Sodium Hypochlorite) Allergy Hives Verified 02/03/25 18:32 codeine Allergy Hives Verified 02/03/25 18:32 ketorolac (From Toradol) Allergy Itching Verified 02/03/25 18:32 nitrofurantoin (From Allergy Anaphylaxis Verified 02/03/25 18:32 Macrodantin) NSAIDS (Non-Steroidal Allergy Other Verified 02/03/25 18:32 Anti-Inflamma oseltamivir (From Tamiflu) Allergy SOB Verified 02/03/25 18:32 doxycycline AdvReac Vomiting Verified 02/03/25 18:32 Family History Mother Hypertension Migraine Grandmother CVA (cerebral vascular accident) Grandfather Diabetes Father Myocardial infarction Family History no significant family his Surgical History History of cystoscopy S/P laparoscopic surgery History of hysterectomy Hx of cholecystectomy Surgical History no surgical history Social History household members: significant other Smoking Status: Current every day smoker tobacco type: e-cigarettes alcohol intake: current details: occasionally substance use type: does not use caffeine: Yes what type of physical activity do you participate in: walking frequency: 1-2 times per week seatbelt use: always do you feel safe at home: Yes additional social history: Single ROS ROS ED Constitutional Constitutional ED: Denies chills, fever(s), subjective, sweats or weight loss ENT ENT ED: Denies ear pain, rhinorrhea or sore throat Cardiovascular Cardiovascular: Denies chest pain, palpitations or racing heartbeat Respiratory/Chest Respiratory/Chest: Denies cough, dyspnea or dyspnea on exertion Gastrointestinal Gastrointestinal: Reports abdominal pain and nausea; Denies constipation, diarrhea, melena or vomiting Genitourinary Genitourinary ED: Denies dysuria, hematuria or urinary frequency Musculoskeletal Musculoskeletal: Denies arthralgias, back pain or myalgias Integumentary Denies rash Endocrine Endocrinology: Denies cold intolerance or heat intolerance Hematologic/Lymphatic Hematologic/Lymphatic: Reports systems reviewed and no addt'l complaints, except as documented EXAM Physical Exam Const Vital Signs: 02/03/25 18:32 02/03/25 18:36 02/03/25 20:00 Temperature 97.6 F L Temperature Source Temporal Pulse Rate 97 72 Respiratory Rate 16 18 Blood Pressure 164/136 H 163/107 H 146/87 H Blood Pressure Mean 145 125 106 Pulse Ox 97 100 Oxygen Delivery Method Room Air Room Air Positive well nourished and well developed Constitutional Narrative: Blood pressure is elevated. Vital signs are otherwise unremarkable. General Appearance ED: well developed, NAD and pallor; Negative for cyanotic or diaphoretic HEENT Reports moist mucous membranes HEENT Narrative: Head is atraumatic normocephalic. Ears normal. Nares patent. Posterior pharynx is normal. Eyes PERRL and EOMs intact bilaterally General Eye ED: Negative for pale conjunctiva or scleral icterus Neck no lymphadenopathy, supple and no JVD Chest Wall inspection of chest normal and palpation of chest normal Resp normal respiratory effort and clear to auscultation bilaterally Cardio regular rate, regular rhythm, S1 normal heart sound, S2 normal heart sound and no murmurs GI normal to inspection, nondistended, normoactive bowel sounds, non-distended and no masses; Negative for non-tender or hepatosplenomegaly GI Narrative: Patient has pain out of proportion to tactile stimuli. There is no umbilical hernia. There is no ventral hernia noted either. There is no rash noted. Palpation: soft Back/Spine no CVA tenderness Extremity normal to inspection General Extremety ED: Negative for edema or tenderness General Extremity: Negative for edema Neuro oriented x3 and CN's II-XII intact bilaterally Sensorium / Orientation: alert Psych mental status grossly normal Skin no rashes or lesions noted, no wounds and skin turgor normal General Skin Exam: elasticity normal and pallor; Negative for jaundice MDM MDM MDM Narrative Medical decision making narrative: Patient had blood work obtained. Her pain was treated with Bentyl and nausea was treated with Zofran. Since she has had 2 CAT scans that revealed no abnormalities specifically renal or ureteral calculi unless she has gross hematuria without evidence of infection will obtain CT. She claims she passed the stone last week even though no stone was noted on most recent CAT scan. History & Record Review Additional record(s) reviewed:: Prior ED visit and Prior labs Lab Data Labs: Laboratory Results - last 24 hr 02/03/25 19:47 WBC 7.4 RBC 3.75 L Hgb 11.7 L Hct 34.8 L MCV 92.8 MCH 31.2 MCHC 33.6 RDW Std Deviation 45.6 H RDW Coeff of Romario 13.3 Plt Count 222 MPV 11.6 Immature Gran % (Auto) 0.300 Neut % (Auto) 66.8 Lymph % (Auto) 28.2 Holmes % (Auto) 4.3 Eos % (Auto) 0.3 Baso % (Auto) 0.1 Absolute Neuts (auto) 4.9 Absolute Lymphs (auto) 2.09 Nucleated RBC % 0 Sodium 142 Potassium 3.6 Chloride 105 Carbon Dioxide 20.6 L Anion Gap 16 H BUN 7 Creatinine 0.70 Estim Creat Clear Calc 123.57 Est GFR (MDRD) Non-Af 116 BUN/Creatinine Ratio 10.3 Glucose 92 Calcium 9.6 Treatment and Re-Evaluation :: Patient was informed of results. She states the medicine she was given did not help. She was informed the cause of her pain is unknown. Recommended Tylenol and if no improvement follow-up with her doctor or return if any significant change. Discharge Plan Triage Chief Complaint: Abd Pain ED Provider: Rayray Irving Dx/Rx/DC Orders Clinical Impression: Acute periumbilical pain, Nausea Instructions: ED Abdominal Pain Unkn Cause Fem Prescriptions: No Action propranolol 10 mg tablet 10 mg PO DAILY Patient Comments: TAKE 1 TABLET BY MOUTH ONCE DAILY Nurtec ODT 75 mg tablet,disintegrating 75 mg PO ONCE PRN (Reason: migraine headache) Rx Instructions: as a single dose Qulipta 60 mg tablet 60 mg PO QHS escitalopram oxalate [Lexapro] 20 mg Tablet 20 mg PO DAILY tizanidine 4 mg tablet 4 mg PO TID PRN (Reason: MUSCLE SPASMS ) Patient Comments: PT STATES THAT THEY USUALLY TAKE ALL THREE TABLETS TOGETHER ONCE DAILY AT BEDTIME BECAUSE IT MAKES THEM DROWSY ( OF 10-28-23) metoclopramide HCl [Reglan] 5 mg tablet 5 mg PO Q6H PRN (Reason: nausea and vomiting) Qty: 20 0RF MAGIC MOUTH WASH (BMX) 180 mL suspension 5 - 10 ml PO Q6H PRN PRN (Reason: gastritis) Qty: 180 0RF Rx Instructions: diphenhydramine 12.5 mg/5 mL oral liquid 60 mL; aluminum-mag hydroxide-simethicone 400 mg-400 mg-40 mg/5 mL oral susp 60 mL; Lidocaine Viscous 2 % mucosal solution 60 mL; Per 180 mL potassium chloride 20 mEq tablet,ER particles/crystals 20 meq PO DAILY pantoprazole 40 mg tablet,delayed release (DR/EC) 40 mg PO BID promethazine 25 mg tablet 25 mg PO TID PRN PRN (Reason: nausea/vomiting) oxycodone-acetaminophen [Percocet] 5-325 mg tablet 1 tab PO Q4H PRN (Reason: pain) Patient Comments: patient needs to get it filled, currently out but has not made it to her pharmacy to pick it up granisetron HCl 1 mg tablet 1 mg PO Q12H PRN sucralfate 1 gram tablet 1 g PO BID olanzapine 10 mg tablet,disintegrating 10 mg PO QHS ondansetron 4 mg tablet,disintegrating 4 mg PO Q8H PRN PRN (Reason: Nausea) Qty: 10 0RF diphenhydramine HCl 12.5 mg/5 mL liquid 12.5 mg PO PRN Patient Comments: [NO ORIGINAL SIG] mirabegron [Myrbetriq] 50 mg tablet extended release 24 hr 50 mg PO DAILY Primary Care Provider: Dean Varghese Referrals: Dean Varghese DO [Primary Care Provider] - 1-2 Days if not improving Print Language: Salvadorean Disposition Disposition: Home, Self Care
[2025-02-03] MEDS: Dicyclomine 10 MG Capsule 20 MG PO (19:42)
[2025-02-03] MEDS: Ondansetron 4 MG/2 ML Vial IV (19:46)
[2025-02-03 20:00] VITALS: BP 146/87; PULSE 72; RESP 18; O2SAT 100
[2025-02-03 20:31] LABS: Absolute Lymphocyte Count 2.09 X10^3/uL (0.83-4.51); Absolute Neutrophil Count 4.9 X10^3/uL (2.0-7.7); Basophil# 0.01 X10^3/uL; Basophil% 0.1 % (0-1); Eosinophil# 0.02 X10^3/uL; Eosinophils% 0.3 % (0-5); Hematocrit 34.8 % (37-47); Hemoglobin 11.7 g/dL (12.0-15.0); Lymphocyte # 2.09 X10^3/ul (0.83-4.51); Lymphocyte % 28.2 % (19-41); Mean Corp Hgb Conc 33.6 g/dL (32-36); Mean Corpuscular Hgb 31.2 pg (27.0-32.0); Mean Corpuscular Volume 92.8 fL (81-99); Mean Platelet Vol. 11.6 fl (6.2-12.0); Monocyte# 0.32 X10^3/uL; Monocyte% 4.3 % (0-10); NRBC Flagged by Analyzer 0 % (0-5); Neutrophil # 4.94 X10^3/uL (2.7-7.7); Neutrophil % 66.8 % (47-70); Platelet Count 222 K/mm3 (150-450); RBC Distribution Width CV 13.3 % (11.6-14.6); RBC Distribution Width SD 45.6 fl (35.1-43.9); Red Blood Count 3.75 M/mm3 (4.2-5.4); White Blood Count 7.4 K/mm3 (4.4-11.0)
--- NOTE | 2025-02-03 21:15 | ED.RN ---
This RN called the lab to inquire about the chemistry pending for over an hour and a half. The medical laboratory scientist stated the lady that is working in the chemistry area is not there at the moment, she must have stepped out for a minute and has not gotten to the blood yet, I'll check whenever she comes back. Charge nurse notified.
[2025-02-03 21:22] LABS: Anion Gap 16 (5-15); BUN 7 mg/dL (4-19); BUN/Creat Ratio 10.3 RATIO (10-20); Calcium,Total 9.6 mg/dL (7.6-11.0); Carbon Dioxide 20.6 mmol/L (21.0-32.0); Chloride 105 mmol/L (98-108); EST Glomerular Filtration Rate 116 (>60); Estimated Creatinine Clearance 123.57 ml/min (50-250); Glucose 92 mg/dL (70-99); Potassium 3.6 mmol/L (3.3-5.1); Sodium Level 142 mmol/L (133-145)
[2025-02-03 21:57] VITALS: BP 146/87; PULSE 72; RESP 18; TEMP 36.4; O2SAT 100
== END 2025-02-03 22:01 | disposition home or self-care (01) ==
PROVIDERS: Emergency Provider Emergency Medicine; Visit Provider Emergency Medicine
DX: R10.33 Periumbilical pain (principal); F31.9 Bipolar disorder, unspecified; R11.0 Nausea; K76.0 Fatty (change of) liver, not elsewhere classified; K21.9 Gastro-esophageal reflux disease without esophagitis; F41.9 Anxiety disorder, unspecified; M79.7 Fibromyalgia; E78.00 Pure hypercholesterolemia, unspecified; G43.909 Migraine, unspecified, not intractable, without status migrainosus; F17.290 Nicotine dependence, other tobacco product, uncomplicated; Z88.1 Allergy status to other antibiotic agents; Z87.19 Personal history of other diseases of the digestive system; Z87.11 Personal history of peptic ulcer disease; Z90.49 Acquired absence of other specified parts of digestive tract; Z87.440 Personal history of urinary (tract) infections; Z87.442 Personal history of urinary calculi; Z79.899 Other long term (current) drug therapy
CPT/HCPCS: 80048; 85025; 96374; 99283; A4216; J2405

== ENCOUNTER 2025-03-07 03:07 | Emergency (ER) | payer MEDICAID, SELFPAY ==
[2025-03-07 03:07] VITALS: BP 112/76; PULSE 65; RESP 18; TEMP 36.5; O2SAT 100; BMI 35.1
[2025-03-07 03:54] LABS: Absolute Lymphocyte Count 2.75 X10^3/uL (0.83-4.51); Absolute Neutrophil Count 5.2 X10^3/uL (2.0-7.7); Basophil# 0.01 X10^3/uL; Basophil% 0.1 % (0-1); Eosinophil# 0.06 X10^3/uL; Eosinophils% 0.7 % (0-5); Hematocrit 38.9 % (37-47); Hemoglobin 13.1 g/dL (12.0-15.0); Lymphocyte # 2.75 X10^3/ul (0.83-4.51); Lymphocyte % 32.9 % (19-41); Mean Corp Hgb Conc 33.7 g/dL (32-36); Mean Corpuscular Hgb 30.2 pg (27.0-32.0); Mean Corpuscular Volume 89.6 fL (81-99); Mean Platelet Vol. 12.7 fl (6.2-12.0); Monocyte# 0.35 X10^3/uL; Monocyte% 4.2 % (0-10); NRBC Flagged by Analyzer 0 % (0-5); Neutrophil # 5.17 X10^3/uL (2.7-7.7); POSITIVE COUNT YES; Platelet Count 187 K/mm3 (150-450); RBC Distribution Width CV 12.6 % (11.6-14.6); RBC Distribution Width SD 41.5 fl (35.1-43.9); Red Blood Count 4.34 M/mm3 (4.2-5.4); White Blood Count 8.4 K/mm3 (4.4-11.0)
[2025-03-07] MEDS: 0.9% Normal Saline (1000mL) 1,000 ML 999 ML IV (04:07)
[2025-03-07] MEDS: Morphine 4 MG/ML Syringe IV (04:07)
[2025-03-07] MEDS: Metoclopramide 10 MG/2 ML Vial IV (04:07)
[2025-03-07 04:16] LABS: Lipase 36 U/L (13-75); Magnesium 1.8 mg/dL (1.5-2.2)
[2025-03-07 04:20] LABS: AST(SGOT) 46 U/L (<=31); Alanine Aminotransfer ALT/SGPT 21 U/L (<=34); Albumin, Serum 4.2 g/dL (3.5-5.0); Alkaline Phosphatase 132 U/L (35-104); Anion Gap 15 (5-15); BUN 8 mg/dL (4-19); BUN/Creat Ratio 11.6 RATIO (10-20); Bilirubin, Direct < 0.08 mg/dL (0.00-0.30); Calcium,Total 9.6 mg/dL (7.6-11.0); Chloride 103 mmol/L (98-108); Creatinine, Serum 0.69 mg/dL (0.70-1.20); EST Glomerular Filtration Rate 117 (>60); Estimated Creatinine Clearance 122.31 ml/min (50-250); Globulin 3.2 g/dL (2.2-4.2); Glucose 137 mg/dL (70-99); Potassium 3.4 mmol/L (3.3-5.1); Protein, Total 7.4 g/dL (5.9-8.4); Sodium Level 138 mmol/L (133-145); Total Bilirubin 0.36 mg/dL (0.00-1.30)
[2025-03-07 04:40] LABS: Differential Indicated SCAN CRITERIA MET
[2025-03-07 04:56] LABS: Differential Comment SCANNED; Platelet Estimate ADEQUATE (ADEQ); Red Cell Morphology NORM C+C NORMAL (NORM C&C)
--- NOTE | 2025-03-07 05:03 | EX.ED.DYSGE1 ---
HPI History of Present Illness Chief Complaint: Abd Pain Informant: patient Narrative Narrative: Patient is a 34-year-old female with past medical history of bipolar disorder anxiety hypertension and gastroparesis. She states that in the last 1 to 2 days has been having increasing abdominal discomfort in the midepigastric to left upper quadrant region with nausea. She states that she is unsure if this is her gastroparesis or potential pancreatitis which she states she has had previously. She denies any known sick contacts or recent trauma. She states she has been taking her normal medications without symptom improvement and secondary to this comes in for evaluation [facility] Medical History Gastroparesis Pancreatitis Right knee pain Avulsion fracture of lateral malleolus of right fibula Left renal stone Smoker Bilateral renal stones Wears glasses Wears dentures Alcohol use Marijuana use History of renal disease Fatty liver High cholesterol Easy bruising Restless legs Syncope Gastric reflux Environmental and seasonal allergies Leg cramps History of edema History of echocardiogram History of stress test Cardiology follow-up encounter Hypertension Peptic ulcer of stomach Migraine Chronic interstitial cystitis Endometriosis Bipolar disorder Anxiety Depression Back pain Conversion disorder History of cervical cancer Kidney stone Fibromyalgia Home Medications ?Medication ?Instructions ?Recorded ?Last Taken ?Type escitalopram oxalate 20 mg tablet 20 mg PO DAILY DEPRESSION 09/22/21 10/27/23 History (Lexapro) tizanidine 4 mg tablet 4 mg PO TID MUSCLE SPASMS 10/28/23 10/27/23 History propranolol 10 mg tablet 10 mg PO DAILY 12/12/23 Unknown History atogepant 60 mg tablet (Qulipta) 60 mg PO QHS 04/21/24 Unknown History rimegepant 75 mg disintegrating 75 mg PO ONCE PRN migraine headache 04/21/24 Unknown History tablet (Nurtec ODT) ondansetron 4 mg disintegrating 4 mg PO Q8H PRN PRN Nausea #10 tabs 07/30/24 Unknown Rx tablet MAGIC MOUTH WASH (BMX) 180 mL 5 - 10 ml PO Q6H PRN PRN gastritis 11/04/24 Unknown Rx suspension #180 mL metoclopramide HCl 5 mg tablet 5 mg PO Q6H PRN nausea and 11/04/24 11/06/24 17:30 Rx (Reglan) vomiting #20 tabs oxycodone-acetaminophen 5 mg-325 1 tab PO Q4H PRN pain 11/06/24 Unknown History mg tablet (Percocet) pantoprazole 40 mg tablet,delayed 40 mg PO BID 11/06/24 Unknown History release promethazine 25 mg tablet 25 mg PO TID PRN PRN 11/06/24 Unknown History nausea/vomiting granisetron HCl 1 mg tablet 1 mg PO Q12H PRN 01/22/25 Unknown History olanzapine 10 mg disintegrating 10 mg PO QHS 01/22/25 Unknown History tablet sucralfate 1 gram tablet 1 g PO BID 01/22/25 Unknown History diphenhydramine HCl 12.5 mg/5 mL 12.5 mg PO PRN 02/03/25 Unknown History oral liquid mirabegron 50 mg tablet,extended 50 mg PO DAILY 02/03/25 Unknown History release 24 hr (Myrbetriq) dicyclomine 20 mg tablet 20 mg PO 4X/DAY PRN PRN abdominal 03/07/25 Unknown History pain [id number] 1 cap PO TID 03/07/25 Unknown History 12,000-38,000-60,000 unit capsule,delayed rel (Creon) Allergy/AdvReac Type Severity Reaction Status Date / Time amitriptyline Allergy MUSCLE Verified 03/07/25 03:07 SPASMS Bleach (Sodium Hypochlorite) Allergy Hives Verified 03/07/25 03:07 codeine Allergy Hives Verified 03/07/25 03:07 ketorolac (From Toradol) Allergy Itching Verified 03/07/25 03:07 nitrofurantoin (From Allergy Anaphylaxis Verified 03/07/25 03:07 Macrodantin) NSAIDS (Non-Steroidal Allergy Other Verified 03/07/25 03:07 Anti-Inflamma oseltamivir (From Tamiflu) Allergy SOB Verified 03/07/25 03:07 doxycycline AdvReac Vomiting Verified 03/07/25 03:07 Family History Mother Hypertension Migraine Grandmother CVA (cerebral vascular accident) Grandfather Diabetes Father Myocardial infarction Family History no significant family his Surgical History History of cystoscopy S/P laparoscopic surgery History of hysterectomy Hx of cholecystectomy Surgical History no surgical history Social History household members: significant other Smoking Status: Current every day smoker tobacco type: e-cigarettes alcohol intake: current details: occasionally substance use type: does not use caffeine: Yes what type of physical activity do you participate in: walking frequency: 1-2 times per week seatbelt use: always do you feel safe at home: Yes additional social history: Single ROS ROS ED Constitutional Constitutional ED: Denies chills or fever(s) ENT ENT ED: Denies sore throat Cardiovascular Cardiovascular: Denies chest pain Respiratory/Chest Respiratory/Chest: Denies cough or dyspnea Gastrointestinal Gastrointestinal: Reports abdominal pain and nausea; Denies diarrhea or vomiting Genitourinary Genitourinary ED: Denies dysuria, hematuria or urinary frequency Musculoskeletal Musculoskeletal: Denies back pain or myalgias Integumentary Denies rash Neurologic Neurologic: Denies headache(s) Psychiatric Psychiatric: Reports anxiety Hematologic/Lymphatic Hematologic/Lymphatic: Denies easy bleeding or easy bruising EXAM Physical Exam Const Vital Signs: 03/07/25 03:07 Temperature 97.7 F L Temperature Source Oral Pulse Rate 65 Respiratory Rate 18 Blood Pressure 112/76 Blood Pressure Mean 88 Pulse Ox 100 Oxygen Delivery Method Room Air Positive well nourished, well developed and obese General Appearance ED: well developed; Negative for pallor Nutritional Appearance: obese HEENT Reports moist mucous membranes HEENT Narrative: Normocephalic atraumatic No tongue or lip swelling no oral lesions no airway edema or compromise No secondary findings in the posterior pharynx to suggest infection Eyes PERRL and EOMs intact bilaterally General Eye ED: Negative for scleral icterus Neck supple Neck Narrative: No nuchal rigidity or meningeal signs noted Resp normal respiratory effort and clear to auscultation bilaterally Cardio regular rate and regular rhythm Rate: other Other Details: Heart is regular rate and rhythm without murmurs rubs or gallops Radial and carotid pulses are equal and symmetric GI non-distended and no masses GI Narrative: Abdomen is soft and nondistended with hypoactive bowel sounds. There is mild pain with palpation in the midepigastric and left upper quadrant region without voluntary guarding. No pulsatile mass. No fluid wave. Auscultation: hypoactive bowel sounds Palpation: soft Back/Spine no CVA tenderness Extremity normal to inspection Neuro oriented x3, CN's II-XII intact bilaterally and no sensory deficits noted Sensorium / Orientation: alert Motor Exam: strength 5/5 throughout Psych Psych Narrative: Patient has a flat affect Skin no rashes or lesions noted General Skin Exam: Negative for jaundice or pallor MDM MDM MDM Narrative Medical decision making narrative: Patient arrived to the ER with stable vitals and a soft nonsurgical abdomen. Chart review reveals she had a CT scan in October and end of December of this year each documenting no acute finding. Based on her young age and already having 2 CT scans in 2024 I did not feel the need for a repeat CT scan based on her stable vitals and physical exam. General diagnosis is for gastroparesis versus pancreatitis versus colitis versus viral gastroenteritis. Patient also could have potentially acute kidney injury or clinically significant electrolyte abnormality. Blood work revealed no leukocytosis or left shift. Lipase was normal going against pancreatitis and there was no findings of ERIC or electrolyte abnormality. After receiving medications in the ER patient had improvement of her pain and her abdomen remains soft and nonsurgical. Therefore at this time I do not feel there is need for repeat CT scan or further intervention and she is otherwise safe for discharge. History & Record Review Discussion w/independent historian: Patient Lab Data Attestation: I reviewed the patient's lab results. Labs: Laboratory Results - last 24 hr 03/07/25 03:22 WBC 8.4 RBC 4.34 Hgb 13.1 Hct 38.9 MCV 89.6 MCH 30.2 MCHC 33.7 RDW Std Deviation 41.5 RDW Coeff of Romario 12.6 Plt Count 187 MPV 12.7 H Immature Gran % (Auto) 0.100 Neut % (Auto) 62.0 Lymph % (Auto) 32.9 Tift % (Auto) 4.2 Eos % (Auto) 0.7 Baso % (Auto) 0.1 Absolute Neuts (auto) 5.2 Absolute Lymphs (auto) 2.75 Nucleated RBC % 0 Differential Comment SCANNED Platelet Estimate ADEQUATE RBC Morphology NORM C+C Sodium 138 Potassium 3.4 Chloride 103 Carbon Dioxide 20.0 L Anion Gap 15 BUN 8 Creatinine 0.69 L Estim Creat Clear Calc 122.31 Est GFR (MDRD) Non-Af 117 BUN/Creatinine Ratio 11.6 Glucose 137 H Calcium 9.6 Magnesium 1.8 Total Bilirubin 0.36 Direct Bilirubin < 0.08 AST 46 H ALT 21 Alkaline Phosphatase 132 H Total Protein 7.4 Albumin 4.2 Globulin 3.2 Lipase 36 Discharge Plan Triage Chief Complaint: Abd Pain ED Provider: Lanre Puentes Dx/Rx/DC Orders Clinical Impression: Gastroparesis, Nonspecific abdominal pain, Hypertension, Anxiety, Bipolar disorder Instructions: Abdominal Pain, Gastroparesis Prescriptions: No Action propranolol 10 mg tablet 10 mg PO DAILY Patient Comments: TAKE 1 TABLET BY MOUTH ONCE DAILY Nurtec ODT 75 mg tablet,disintegrating 75 mg PO ONCE PRN (Reason: migraine headache) Rx Instructions: as a single dose Qulipta 60 mg tablet 60 mg PO QHS escitalopram oxalate [Lexapro] 20 mg Tablet 20 mg PO DAILY tizanidine 4 mg tablet 4 mg PO TID Patient Comments: PT STATES THAT THEY USUALLY TAKE ALL THREE TABLETS TOGETHER ONCE DAILY AT BEDTIME BECAUSE IT MAKES THEM DROWSY ( OF 10-28-23) metoclopramide HCl [Reglan] 5 mg tablet 5 mg PO Q6H PRN (Reason: nausea and vomiting) Qty: 20 0RF MAGIC MOUTH WASH (BMX) 180 mL suspension 5 - 10 ml PO Q6H PRN PRN (Reason: gastritis) Qty: 180 0RF Rx Instructions: diphenhydramine 12.5 mg/5 mL oral liquid 60 mL; aluminum-mag hydroxide-simethicone 400 mg-400 mg-40 mg/5 mL oral susp 60 mL; Lidocaine Viscous 2 % mucosal solution 60 mL; Per 180 mL pantoprazole 40 mg tablet,delayed release (DR/EC) 40 mg PO BID promethazine 25 mg tablet 25 mg PO TID PRN PRN (Reason: nausea/vomiting) oxycodone-acetaminophen [Percocet] 5-325 mg tablet 1 tab PO Q4H PRN (Reason: pain) Patient Comments: patient needs to get it filled, currently out but has not made it to her pharmacy to pick it up granisetron HCl 1 mg tablet 1 mg PO Q12H PRN sucralfate 1 gram tablet 1 g PO BID olanzapine 10 mg tablet,disintegrating 10 mg PO QHS ondansetron 4 mg tablet,disintegrating 4 mg PO Q8H PRN PRN (Reason: Nausea) Qty: 10 0RF diphenhydramine HCl 12.5 mg/5 mL liquid 12.5 mg PO PRN Patient Comments: [NO ORIGINAL SIG] mirabegron [Myrbetriq] 50 mg tablet extended release 24 hr 50 mg PO DAILY dicyclomine 20 mg tablet 20 mg PO 4X/DAY PRN PRN (Reason: abdominal pain) Creon 12,000-38,000 -60,000 unit capsule,delayed release(DR/EC) 1 cap PO TID Primary Care Provider: Dean Varghese Referrals: Dean Varghese DO [Primary Care Provider] - Activity Restrictions/Additional Instructions: Please follow-up with your surgeon for repeat evaluation and return to the ER should you have any further concerns. Continue all of your home medication as directed by your doctor Print Language: Tamazight Disposition Disposition: Home, Self Care
[2025-03-07 05:07] VITALS: BP 126/85; PULSE 68; RESP 16; O2SAT 100
[2025-03-07] MEDS: HYDROmorphone 1 MG/ML Syringe IV (05:13)
[2025-03-07 05:59] VITALS: BP 156/94; PULSE 68; RESP 16; TEMP 36.5; O2SAT 100
== END 2025-03-07 06:11 | disposition home or self-care (01) ==
PROVIDERS: Emergency Provider Emergency Medicine; Visit Provider Emergency Medicine
DX: K31.84 Gastroparesis (principal); F31.9 Bipolar disorder, unspecified; R10.13 Epigastric pain; R10.12 Left upper quadrant pain; I10 Essential (primary) hypertension; F41.9 Anxiety disorder, unspecified; E66.9 Obesity, unspecified; K21.9 Gastro-esophageal reflux disease without esophagitis; M79.7 Fibromyalgia; G25.81 Restless legs syndrome; G43.909 Migraine, unspecified, not intractable, without status migrainosus; F17.290 Nicotine dependence, other tobacco product, uncomplicated; Z87.11 Personal history of peptic ulcer disease; Z87.19 Personal history of other diseases of the digestive system; Z85.41 Personal history of malignant neoplasm of cervix uteri; Z90.49 Acquired absence of other specified parts of digestive tract; Z79.899 Other long term (current) drug therapy; Z90.710 Acquired absence of both cervix and uterus
CPT/HCPCS: 80048; 80076; 83690; 83735; 85025; 96361; 96374; 96375; 99283; A4216

== ENCOUNTER 2025-03-13 21:53 | Emergency (ER) | payer MEDICAID, SELFPAY ==
[2025-03-13 21:55] VITALS: BP 164/99; PULSE 84; RESP 18; TEMP 36.9; O2SAT 100; BMI 34.7
[2025-03-13 23:29] LABS: Mucous, Urine 0 SEEN /hpf (<or=2+); Red Blood Cells-Urine 0 SEEN /hpf (0-5)
[2025-03-13 23:30] LABS: Absolute Lymphocyte Count 2.56 X10^3/uL (0.83-4.51); Absolute Neutrophil Count 3.8 X10^3/uL (2.0-7.7); Basophil# 0.02 X10^3/uL; Basophil% 0.3 % (0-1); Color, Urine Yellow (Yellow); Eosinophil# 0.07 X10^3/uL; Glucose, Dipstick Normal (Normal); Hematocrit 36.6 % (37-47); Hemoglobin 12.6 g/dL (12.0-15.0); Ketone-Dipstick Negative (Negative); Leukocyte Esterase-Dipstick Negative /ul (Negative); Lymphocyte # 2.56 X10^3/ul (0.83-4.51); Lymphocyte % 37.5 % (19-41); Mean Corp Hgb Conc 34.4 g/dL (32-36); Mean Corpuscular Hgb 30.5 pg (27.0-32.0); Mean Corpuscular Volume 88.6 fL (81-99); Monocyte# 0.37 X10^3/uL; Monocyte% 5.4 % (0-10); NRBC Flagged by Analyzer 0 % (0-5); Neutrophil # 3.79 X10^3/uL (2.7-7.7); Neutrophil % 55.5 % (47-70); Nitrite-Dipstick Negative (Negative); Occult Blood-Urine Negative /ul (Negative); Platelet Count 240 K/mm3 (150-450); Protein-Dipstick Negative (Negative); RBC Distribution Width CV 12.5 % (11.6-14.6); RBC Distribution Width SD 40.2 fl (35.1-43.9); Red Blood Count 4.13 M/mm3 (4.2-5.4); Specific Gravity, Urine 1.005 (1.002-1.030); Urine Bilirubin Dipstick Negative (Negative); Urine Clarity Clear (Clear); Urine Urobilinogen Normal (Normal); White Blood Count 6.8 K/mm3 (4.4-11.0)
[2025-03-13 23:31] VITALS: BP 130/76; PULSE 58; RESP 16; O2SAT 97
[2025-03-13] MEDS: 0.9% Normal Saline (1000mL) 1,000 ML 999 ML IV (23:31)
[2025-03-13] MEDS: Morphine 4 MG/ML Syringe IV (23:31)
[2025-03-13] MEDS: Metoclopramide 10 MG/2 ML Vial IV (23:31)
[2025-03-13 23:47] LABS: AST(SGOT) 49 U/L (<=31); Alanine Aminotransfer ALT/SGPT 35 U/L (<=34); Albumin, Serum 4.5 g/dL (3.5-5.0); Alkaline Phosphatase 141 U/L (35-104); Anion Gap 15 (5-15); BUN 6 mg/dL (4-19); BUN/Creat Ratio 7.9 RATIO (10-20); Bilirubin, Direct 0.13 mg/dL (0.00-0.30); Calcium,Total 9.7 mg/dL (7.6-11.0); Carbon Dioxide 19.1 mmol/L (21.0-32.0); Chloride 105 mmol/L (98-108); Creatinine, Serum 0.76 mg/dL (0.70-1.20); EST Glomerular Filtration Rate 105 (>60); Estimated Creatinine Clearance 110.35 ml/min (50-250); Globulin 3.4 g/dL (2.2-4.2); Glucose 120 mg/dL (70-99); Lipase 31 U/L (13-75); Magnesium 1.8 mg/dL (1.5-2.2); Potassium 3.3 mmol/L (3.3-5.1); Protein, Total 7.9 g/dL (5.9-8.4); Sodium Level 139 mmol/L (133-145)
[2025-03-13 23:53] LABS: Bacteria 1+ /hpf (None Seen); Squamous Epithelial Cells - UA 5-10 SEEN /hpf (5-10); White Blood Cells 0-5 SEEN /hpf (0-5)
--- NOTE | 2025-03-14 00:34 | EX.ED.DYSGE1 ---
HPI History of Present Illness Chief Complaint: Abd Pain Informant: patient Narrative Narrative: Patient is a 34-year-old female with past medical history of hypertension bipolar disorder and gastroparesis. She states that over the weekend she was visiting her mother out in [place]. She states while there she tripped and fell and landed on her left side. She went to the ER in that area and states she had a CT scan obtained that revealed no sign of acute injury. Patient states that she has had pain along the left mid upper abdomen since the fall. She denies any dysuria or hematuria. She states that this morning she had a low-grade fever and has had some loose stool. She states she is unsure if this is related to the trauma over the weekend or a potential infection and therefore she comes in for evaluation [facility] Medical History Gastroparesis Pancreatitis Right knee pain Avulsion fracture of lateral malleolus of right fibula Left renal stone Smoker Bilateral renal stones Wears glasses Wears dentures Alcohol use Marijuana use History of renal disease Fatty liver High cholesterol Easy bruising Restless legs Syncope Gastric reflux Environmental and seasonal allergies Leg cramps History of edema History of echocardiogram History of stress test Cardiology follow-up encounter Hypertension Peptic ulcer of stomach Migraine Chronic interstitial cystitis Endometriosis Bipolar disorder Anxiety Depression Back pain Conversion disorder History of cervical cancer Kidney stone Fibromyalgia Home Medications ?Medication ?Instructions ?Recorded ?Last Taken ?Type escitalopram oxalate 20 mg tablet 20 mg PO DAILY DEPRESSION 09/22/21 10/27/23 History (Lexapro) tizanidine 4 mg tablet 4 mg PO TID MUSCLE SPASMS 10/28/23 10/27/23 History propranolol 10 mg tablet 10 mg PO DAILY 12/12/23 Unknown History atogepant 60 mg tablet (Qulipta) 60 mg PO QHS 04/21/24 Unknown History rimegepant 75 mg disintegrating 75 mg PO ONCE PRN migraine headache 04/21/24 Unknown History tablet (Nurtec ODT) ondansetron 4 mg disintegrating 4 mg PO Q8H PRN PRN Nausea #10 tabs 07/30/24 Unknown Rx tablet MAGIC MOUTH WASH (BMX) 180 mL 5 - 10 ml PO Q6H PRN PRN gastritis 11/04/24 Unknown Rx suspension #180 mL metoclopramide HCl 5 mg tablet 5 mg PO Q6H PRN nausea and 11/04/24 11/06/24 17:30 Rx (Reglan) vomiting #20 tabs oxycodone-acetaminophen 5 mg-325 1 tab PO Q4H PRN pain 11/06/24 Unknown History mg tablet (Percocet) pantoprazole 40 mg tablet,delayed 40 mg PO BID 11/06/24 Unknown History release promethazine 25 mg tablet 25 mg PO TID PRN PRN 11/06/24 Unknown History nausea/vomiting granisetron HCl 1 mg tablet 1 mg PO Q12H PRN 01/22/25 Unknown History olanzapine 10 mg disintegrating 10 mg PO QHS 01/22/25 Unknown History tablet sucralfate 1 gram tablet 1 g PO BID 01/22/25 Unknown History diphenhydramine HCl 12.5 mg/5 mL 12.5 mg PO PRN 02/03/25 Unknown History oral liquid mirabegron 50 mg tablet,extended 50 mg PO DAILY 02/03/25 Unknown History release 24 hr (Myrbetriq) dicyclomine 20 mg tablet 20 mg PO 4X/DAY PRN PRN abdominal 03/07/25 Unknown History pain pcfkch-[id number]-[id number] 1 cap PO TID 03/07/25 Unknown History 12,000-38,000-60,000 unit capsule,delayed rel (Creon) Allergy/AdvReac Type Severity Reaction Status Date / Time amitriptyline Allergy MUSCLE Verified 03/13/25 21:54 SPASMS Bleach (Sodium Hypochlorite) Allergy Hives Verified 03/13/25 21:54 codeine Allergy Hives Verified 03/13/25 21:54 ketorolac (From Toradol) Allergy Itching Verified 03/13/25 21:54 nitrofurantoin (From Allergy Anaphylaxis Verified 03/13/25 21:54 Macrodantin) NSAIDS (Non-Steroidal Allergy Other Verified 03/13/25 21:54 Anti-Inflamma oseltamivir (From Tamiflu) Allergy SOB Verified 03/13/25 21:54 doxycycline AdvReac Vomiting Verified 03/13/25 21:54 Family History Mother Hypertension Migraine Grandmother CVA (cerebral vascular accident) Grandfather Diabetes Father Myocardial infarction Family History no significant family his Surgical History History of cystoscopy S/P laparoscopic surgery History of hysterectomy Hx of cholecystectomy Surgical History no surgical history Social History household members: significant other Smoking Status: Current every day smoker tobacco type: e-cigarettes alcohol intake: current details: occasionally substance use type: does not use caffeine: Yes what type of physical activity do you participate in: walking frequency: 1-2 times per week seatbelt use: always do you feel safe at home: Yes additional social history: Single ROS ROS ED Constitutional Constitutional ED: Denies chills or fever(s) Eyes Eyes: Denies change in vision ENT ENT ED: Denies sore throat Cardiovascular Cardiovascular: Denies chest pain Respiratory/Chest Respiratory/Chest: Denies cough or dyspnea Gastrointestinal Gastrointestinal: Reports abdominal pain, diarrhea and nausea; Denies vomiting Genitourinary Genitourinary ED: Denies dysuria or hematuria Musculoskeletal Musculoskeletal: Denies back pain Integumentary Denies Abrasions or rash Neurologic Neurologic: Denies headache(s) Hematologic/Lymphatic Hematologic/Lymphatic: Denies easy bleeding or easy bruising EXAM Physical Exam Const Vital Signs: 03/13/25 21:55 03/13/25 23:31 03/14/25 00:46 Temperature 98.4 F 98.1 F Temperature Source Oral Pulse Rate 84 58 L 60 Respiratory Rate 18 16 18 Blood Pressure 164/99 H 130/76 H 132/86 H Blood Pressure Mean 120 94 101 Pulse Ox 100 97 96 Oxygen Delivery Method Room Air Room Air Positive well nourished, well developed and obese General Appearance ED: well developed; Negative for pallor Nutritional Appearance: obese HEENT Reports dry mucous membranes HEENT Narrative: No tongue or lip swelling no oral lesions no airway edema or compromise No secondary findings in posterior pharynx to suggest infection Mouth ED: Yes dry mucous membranes Mouth: dry mucous membranes Eyes PERRL and EOMs intact bilaterally General Eye ED: Negative for scleral icterus Neck supple Neck Narrative: No nuchal rigidity or meningeal signs Resp normal respiratory effort and clear to auscultation bilaterally Cardio regular rate and regular rhythm Rate: other Other Details: Heart is regular rate and rhythm without murmurs rubs or gallop Radial and carotid pulses are equal and symmetric GI non-distended and no masses GI Narrative: Abdomen is soft and nondistended with hypoactive bowel sounds There is mild pain with palpation in the midepigastric and left upper quadrant region without voluntary guarding or rigidity No pulsatile mass or fluid wave Auscultation: hypoactive bowel sounds Palpation: soft Back/Spine no CVA tenderness Extremity normal to inspection Neuro oriented x3, CN's II-XII intact bilaterally and no sensory deficits noted Sensorium / Orientation: alert Motor Exam: strength 5/5 throughout Psych mental status grossly normal Skin no rashes or lesions noted and no wounds General Skin Exam: Negative for jaundice or pallor MDM MDM MDM Narrative Medical decision making narrative: Patient arrived to the ER hypertensive but has a past medical history of this and otherwise vitals are stable. With her report of fever there is concern for underlying stomach infection such as norovirus versus rotavirus. With pain in the midepigastric and left upper quadrant region there is concern for pancreatitis versus colitis/enteritis. Patient also could have atypical UTI or pyelonephritis. Secondary to this basic blood work and a urine sample were obtained. Labs revealed no clinically significant findings. White count and neutrophil count are normal going against systemic infection. Lipase is normal going against acute pancreatitis. Liver enzymes are at patient's baseline going against biliary colic or acute cholecystitis. The patient's urine sample does show +1 bacteria but there are multiple epithelial cells and this is most likely contamination as she does not have dysuria and there are no white cells noted within the urine sample. Therefore there is no need for antibiotics. On repeat evaluation patient is resting comfortably and has had moderate improvement of her abdominal discomfort with provided medication. Therefore I do not feel the need for a CT scan as symptoms are improving vitals are stable and overall workup is negative. Therefore patient is safe for discharge and can follow-up with her family doctor for further evaluation History & Record Review Discussion w/independent historian: Patient Lab Data Attestation: I reviewed the patient's lab results. Labs: Laboratory Results - last 24 hr 03/13/25 22:30 WBC 6.8 RBC 4.13 L Hgb 12.6 Hct 36.6 L MCV 88.6 MCH 30.5 MCHC 34.4 RDW Std Deviation 40.2 RDW Coeff of Romario 12.5 Plt Count 240 MPV 12.0 Immature Gran % (Auto) 0.300 Neut % (Auto) 55.5 Lymph % (Auto) 37.5 Wirt % (Auto) 5.4 Eos % (Auto) 1.0 Baso % (Auto) 0.3 Absolute Neuts (auto) 3.8 Absolute Lymphs (auto) 2.56 Nucleated RBC % 0 Sodium 139 Potassium 3.3 Chloride 105 Carbon Dioxide 19.1 L Anion Gap 15 BUN 6 Creatinine 0.76 Estim Creat Clear Calc 110.35 Est GFR (MDRD) Non-Af 105 BUN/Creatinine Ratio 7.9 L Glucose 120 H Calcium 9.7 Magnesium 1.8 Total Bilirubin 0.30 Direct Bilirubin 0.13 AST 49 H ALT 35 Alkaline Phosphatase 141 H Total Protein 7.9 Albumin 4.5 Globulin 3.4 Lipase 31 Urine Color Yellow Urine Clarity Clear Urine pH 7.0 Ur Specific [place] 1.005 Urine Protein Negative Urine Glucose (UA) Normal Urine Ketones Negative Urine Occult Blood Negative Urine Nitrite Negative Urine Bilirubin Negative Urine Urobilinogen Normal Ur Leukocyte Esterase Negative Urine RBC 0 SEEN Urine WBC 0-5 SEEN Ur Squamous Epith Cells 5-10 SEEN Urine Bacteria 1+ Urine Mucus 0 SEEN Discharge Plan Triage Chief Complaint: Abd Pain ED Provider: Lanre Puentes Dx/Rx/DC Orders Clinical Impression: Nonspecific abdominal pain, Gastroparesis, Hypertension, Bipolar disorder Instructions: Abdominal Pain, ED Gastroenteritis, Viral (Adult) Prescriptions: No Action propranolol 10 mg tablet 10 mg PO DAILY Patient Comments: TAKE 1 TABLET BY MOUTH ONCE DAILY Nurtec ODT 75 mg tablet,disintegrating 75 mg PO ONCE PRN (Reason: migraine headache) Rx Instructions: as a single dose Qulipta 60 mg tablet 60 mg PO QHS escitalopram oxalate [Lexapro] 20 mg Tablet 20 mg PO DAILY tizanidine 4 mg tablet 4 mg PO TID Patient Comments: PT STATES THAT THEY USUALLY TAKE ALL THREE TABLETS TOGETHER ONCE DAILY AT BEDTIME BECAUSE IT MAKES THEM DROWSY ( OF 10-28-23) metoclopramide HCl [Reglan] 5 mg tablet 5 mg PO Q6H PRN (Reason: nausea and vomiting) Qty: 20 0RF MAGIC MOUTH WASH (BMX) 180 mL suspension 5 - 10 ml PO Q6H PRN PRN (Reason: gastritis) Qty: 180 0RF Rx Instructions: diphenhydramine 12.5 mg/5 mL oral liquid 60 mL; aluminum-mag hydroxide-simethicone 400 mg-400 mg-40 mg/5 mL oral susp 60 mL; Lidocaine Viscous 2 % mucosal solution 60 mL; Per 180 mL pantoprazole 40 mg tablet,delayed release (DR/EC) 40 mg PO BID promethazine 25 mg tablet 25 mg PO TID PRN PRN (Reason: nausea/vomiting) oxycodone-acetaminophen [Percocet] 5-325 mg tablet 1 tab PO Q4H PRN (Reason: pain) Patient Comments: patient needs to get it filled, currently out but has not made it to her pharmacy to pick it up granisetron HCl 1 mg tablet 1 mg PO Q12H PRN sucralfate 1 gram tablet 1 g PO BID olanzapine 10 mg tablet,disintegrating 10 mg PO QHS ondansetron 4 mg tablet,disintegrating 4 mg PO Q8H PRN PRN (Reason: Nausea) Qty: 10 0RF diphenhydramine HCl 12.5 mg/5 mL liquid 12.5 mg PO PRN Patient Comments: [NO ORIGINAL SIG] mirabegron [Myrbetriq] 50 mg tablet extended release 24 hr 50 mg PO DAILY dicyclomine 20 mg tablet 20 mg PO 4X/DAY PRN PRN (Reason: abdominal pain) Creon 12,000-38,000 -60,000 unit capsule,delayed release(DR/EC) 1 cap PO TID Primary Care Provider: Dean Varghese Referrals: Dean Varghese DO [Primary Care Provider] - Activity Restrictions/Additional Instructions: Your workup today revealed no clinically significant finding. Based on your symptoms and exam and negative workup here abdominal pain is most likely related to a viral stomach infection. This will last anywhere from 24 hours to 7 days with the average being 3 days. Continue your home medication as directed by your doctor and return to the ER should you have any further concerns. Print Language: Swedish Disposition Disposition: Home, Self Care Discharge Date/Time: 03/14/25 01:00
[2025-03-14] MEDS: HYDROmorphone 1 MG/ML Syringe IV (00:45)
[2025-03-14 00:46] VITALS: BP 132/86; PULSE 60; RESP 18; TEMP 36.7; O2SAT 96
== END 2025-03-14 01:00 | disposition home or self-care (01) ==
PROVIDERS: Emergency Provider Emergency Medicine; Visit Provider Emergency Medicine
DX: R10.12 Left upper quadrant pain (principal); F31.9 Bipolar disorder, unspecified; K31.84 Gastroparesis; W01.0XXA Fall on same level from slipping, tripping and stumbling without subsequent striking against object, initial encounter; I10 Essential (primary) hypertension; K21.9 Gastro-esophageal reflux disease without esophagitis; F41.9 Anxiety disorder, unspecified; M79.7 Fibromyalgia; E66.9 Obesity, unspecified; E78.00 Pure hypercholesterolemia, unspecified; G25.81 Restless legs syndrome; G43.909 Migraine, unspecified, not intractable, without status migrainosus; F17.290 Nicotine dependence, other tobacco product, uncomplicated; Z87.11 Personal history of peptic ulcer disease; Z90.49 Acquired absence of other specified parts of digestive tract; Z87.19 Personal history of other diseases of the digestive system; Z79.899 Other long term (current) drug therapy
CPT/HCPCS: 80048; 80076; 81001; 83690; 83735; 85025; 96361; 96374; 96375; 99283; A4216

== ENCOUNTER 2025-03-28 00:43 | Emergency (ER) | payer MEDICAID, SELFPAY ==
[2025-03-28 00:44] VITALS: BP 108/64; PULSE 60; RESP 18; TEMP 36.4; O2SAT 98; BMI 35.6
[2025-03-28 01:28] LABS: Mucous, Urine 0 SEEN /hpf (<or=2+); Red Blood Cells-Urine 0 SEEN /hpf (0-5)
[2025-03-28] MEDS: Ondansetron 4 MG/2 ML Vial IV (01:29)
[2025-03-28] MEDS: 0.9% Normal Saline (1000mL) 1,000 ML 999 ML IV (01:29)
[2025-03-28] MEDS: Morphine 4 MG/ML Syringe IV (01:29)
[2025-03-28 01:31] LABS: Absolute Lymphocyte Count 2.87 X10^3/uL (0.83-4.51); Absolute Neutrophil Count 3.3 X10^3/uL (2.0-7.7); Basophil# 0.02 X10^3/uL; Basophil% 0.3 % (0-1); Eosinophil# 0.23 X10^3/uL; Eosinophils% 3.4 % (0-5); Hematocrit 32.1 % (37-47); Hemoglobin 10.9 g/dL (12.0-15.0); Lymphocyte # 2.87 X10^3/ul (0.83-4.51); Mean Corpuscular Hgb 30.2 pg (27.0-32.0); Mean Corpuscular Volume 88.9 fL (81-99); Mean Platelet Vol. 11.9 fl (6.2-12.0); Monocyte# 0.29 X10^3/uL; Monocyte% 4.3 % (0-10); NRBC Flagged by Analyzer 0 % (0-5); Neutrophil # 3.26 X10^3/uL (2.7-7.7); Neutrophil % 48.9 % (47-70); Platelet Count 208 K/mm3 (150-450); RBC Distribution Width CV 12.7 % (11.6-14.6); RBC Distribution Width SD 41.1 fl (35.1-43.9); Red Blood Count 3.61 M/mm3 (4.2-5.4); White Blood Count 6.7 K/mm3 (4.4-11.0)
--- NOTE | 2025-03-28 01:40 | CT_ITS ---
PROCEDURE: ABDOMEN/PELVIS WITHOUT CONT 03/28/2025 REASON FOR EXAM: KIDNEY STONE TECHNIQUE: Abdomen and pelvis CT without intravenous contrast. Noncontrast technique limits evaluation of the abdominal and pelvic viscera. Coronal and Sagittal reconstruction series were provided. One or more dose reduction techniques were used (e.g., Automated exposure control, adjustment of the mA and/or kV according to patient size, use of iterative reconstruction technique). PATIENT PREPARATION: Per protocol ORAL CONTRAST TYPE: None. COMPARISON: 01/22/2025. FINDINGS: Mild diffuse thickening of the bladder, probably mild cystitis. Hepatomegaly with hepatic steatosis. Prior cholecystectomy. Prior hysterectomy. The visualized lung bases are unremarkable. Normal extrahepatic biliary system. Normal unenhanced spleen. Normal pancreas. Normal bilateral adrenal glands. Normal size of the right kidney. There is no right renal mass. There are no right renal calculi. There is no right hydronephrosis. Normal visualized right ureter. Normal size of the left kidney. There is no left renal mass. There are no left renal calculi. There is no left hydronephrosis. Normal visualized left ureter. Normal visualized stomach. Normal small intestine. Normal colon. The appendix is visualized and appears normal. There is no demonstrated peritoneal fluid. Normal abdominal aorta. Normal inferior vena cava. Normal retroperitoneum. There is no pelvic mass lesion or lymphadenopathy. There is no pelvic fluid. Normal abdominal wall. Normal osseous structures. CT/Abdomen/Pelvis without Cont IMPRESSION: 1. Mild diffuse thickening of the bladder, probably mild cystitis. 2. Hepatomegaly with hepatic steatosis. 3. Prior cholecystectomy. 4. Prior hysterectomy. Reading [facility]
[2025-03-28 01:45] LABS: Color, Urine Yellow (Yellow); Glucose, Dipstick Normal (Normal); Ketone-Dipstick Negative (Negative); Leukocyte Esterase-Dipstick 25 /ul (Negative); Nitrite-Dipstick Negative (Negative); Occult Blood-Urine Negative /ul (Negative); Protein-Dipstick 15 mg/dl (Negative); Specific Gravity, Urine 1.015 (1.002-1.030); Urine Bilirubin Dipstick Negative (Negative); Urine Clarity Sl. Cloudy (Clear); Urine Urobilinogen Normal (Normal)
[2025-03-28 01:57] LABS: Anion Gap 12 (5-15); BUN 10 mg/dL (4-19); BUN/Creat Ratio 14.3 RATIO (10-20); Chloride 107 mmol/L (98-108); Creatinine, Serum 0.68 mg/dL (0.70-1.20); EST Glomerular Filtration Rate 117 (>60); Estimated Creatinine Clearance 124.92 ml/min (50-250); Glucose 163 mg/dL (70-99); Potassium 3.5 mmol/L (3.3-5.1); Sodium Level 138 mmol/L (133-145)
[2025-03-28 02:02] LABS: Bacteria RARE /hpf (None Seen); Internal QC Validated? YES +Cl - CLEAR BKGD; Pregnancy, Urine Negative Negative; Squamous Epithelial Cells - UA 5-10 SEEN /hpf (5-10); White Blood Cells 0-5 SEEN /hpf (0-5)
--- NOTE | 2025-03-28 02:15 | EDS_ITS ---
HPI HPI - Female History of Present Illness Chief Complaint: Flank Pain PFSH PFSH Medical History Gastroparesis Pancreatitis Right knee pain Avulsion fracture of lateral malleolus of right fibula Left renal stone Smoker Bilateral renal stones Wears glasses Wears dentures Alcohol use Marijuana use History of renal disease Fatty liver High cholesterol Easy bruising Restless legs Syncope Gastric reflux Environmental and seasonal allergies Leg cramps History of edema History of echocardiogram History of stress test Cardiology follow-up encounter Hypertension Peptic ulcer of stomach Migraine Chronic interstitial cystitis Endometriosis Bipolar disorder Anxiety Depression Back pain Conversion disorder History of cervical cancer Kidney stone Fibromyalgia Home Medications ?Medication ?Instructions ?Recorded ?Last Taken ?Type escitalopram oxalate 20 mg tablet 20 mg PO DAILY DEPRE SSION 09/22/21 10/27/23 History (Lexapro) tizanidine 4 mg tablet 4 mg PO TID MUSCLE SPASMS 10/27/23 History propranolol 10 mg tablet 10 mg PO DAILY 12/12/23 Unkn own History atogepant 60 mg tablet (Qulipta) 60 mg PO QHS 04/21/24 Unknown History rimegepant 75 mg disintegrating 75 mg PO ONCE PRN migr gautam headache 04/21/24 Unknown History tablet (Nurtec ODT) ondansetron 4 mg disintegrating 4 mg PO Q8H PRN PRN Na usea #10 tabs 07/30/24 Unknown Rx tablet MAGIC MOUTH WASH (BMX) 180 mL 5 - 10 ml PO Q6H PRN PRN gastritis 11/04/24 Unknown Rx suspension #180 mL metoclopramide HCl 5 mg tablet 5 mg PO Q6H PRN nausea and 11/04/24 11/06/24 17:30 Rx (Reglan) vomiting #20 tabs oxycodone-acetaminophen 5 mg-325 1 tab PO Q4H PRN pain 11/06/24 Unknown History mg tablet (Percocet) pantoprazole 40 mg tablet,delayed 40 mg PO BID 5 Unknown History release promethazine 25 mg tablet 25 mg PO TID PRN PRN 5 Unknown History nausea/vomiting granisetron HCl 1 mg tablet 1 mg PO Q12H PRN 01/22/25 Unknown History olanzapine 10 mg disintegrating 10 mg PO QHS 01/22/25 Unknown History tablet sucralfate 1 gram tablet 1 g PO BID 01/22/25 Unknown History diphenhydramine HCl 12.5 mg/5 mL 12.5 mg PO PRN Unknown History oral liquid mirabegron 50 mg tablet,extended 50 mg PO DAILY Unknown History release 24 hr (Myrbetriq) dicyclomine 20 mg tablet 20 mg PO 4X/DAY PRN PRN abdo tesha 03/07/25 Unknown History pain [id number]-[id number] 1 cap PO TID 03/07/25 Unknow n History 12,000-38,000-60,000 unit capsule,delayed rel (Creon) Allergy/AdvReac Type Severity Reaction Status Date / Time amitriptyline Allergy MUSCLE Verified 03/28/25 00:44 SPASMS Bleach (Sodium Hypochlorite) Allergy Hives Verified 03/28/25 00:44 codeine Allergy Hives Verified 03/28/25 00:44 ketorolac (From Toradol) Allergy Itching Verified 03/28/25 00:44 nitrofurantoin (From Allergy Anaphylaxis Verified 03/28/25 00:44 Macrodantin) NSAIDS (Non-Steroidal Allergy Other Verified 03/28/25 00:44 Anti-Inflamma oseltamivir (From Tamiflu) Allergy SOB Verified 03/28/25 00:44 doxycycline AdvReac Vomiting Verified 03/28/25 00:44 Family History Mother Hypertension Migraine Grandmother CVA (cerebral vascular accident) Grandfather Diabetes Father Myocardial infarction Family History no significant family his Surgical History History of cystoscopy S/P laparoscopic surgery History of hysterectomy Hx of cholecystectomy Surgical History no surgical history Social History household members: significant other Smoking Status: Current every day smoker tobacco type: e-cigarettes alcohol intake: current details: occasionally substance use type: does not use caffeine: Yes what type of physical activity do you participate in: walking frequency: 1-2 times per week seatbelt use: always do you feel safe at home: Yes additional social history: Single EXAM Physical Exam Const Vital Signs: 03/28/25 00:44 Temperature 97.6 F L Temperature Source Oral Pulse Rate 60 Respiratory Rate 18 Blood Pressure 108/64 Blood Pressure Mean 78 Pulse Ox 98 Oxygen Delivery Method [place] [facility] [place] Medical decision making narrative: HISTORY OF PRESENT ILLNESS: Chief complaint: Left flank pain 34 female presents acute onset of left flank pain. Started approximate 2 hours prior to arrival. Notes left flank pain. Is not radiating. Notes recent urinary symptoms. Such as urgency and frequency. Denies dysuria. Denies history of kidney stones. Notes history of multiple abdominal surgeries. Denies vomiting. Denies fever. Denies constipation or diarrhea REVIEW OF SYSTEMS: Pertinent positives: Left flank pain Pertinent negatives: Vomiting, fever PHYSICAL EXAM: Nursing triage notes reviewed, Vital signs reviewed Constitutional: please see [facility] HENT: MMM Eyes: Pupils equal round and reactive to light, Extraocular muscles intact Neck: No stridor, no JVD, full neck ROM Lungs: Clear to auscultation, No wheezing or rales. No increased work of breathing, no conversational dyspnea, no accessory muscle use, no nasal flaring. No respiratory distress noted Heart: Regular rate and rhythm, No murmurs, No rubs and No gallops, 2+ distal pulses (radial, femoral, posterior tibial) in all extremities Abdomen: Soft, there is no tenderness, rigidity, rebound or guarding, no obvious peritoneal signs, no palpable pulsatile abdominal masses, no auscultated abdominal bruit : Left CVA tenderness Extremities: No edema Neuro: No new focal neurological deficits, cranial nerves II through XII intact, 5/5 strength in all present extremities. Intact sensation to light touch in all present extremities, 2+ reflexes bilateral patella tendons. Skin: No rash or lesions noted MEDICAL DECISION MAKING: Chief Complaint: please see HPI External records reviewed: Reviewed prior imaging studies Factors affecting care: nephrolithiasis, history of abdominal surgery Social determinants of health: none History obtained from others: none Consults: none [facility] Narrative: The patient was initially hemodynamically stable, afebrile and nontoxic- appearing. Left CVA tenderness noted initial exam I considered the following differential diagnosis: Pyelonephritis, nephrolithiasis, ALL IMAGES (IF OBTAINED) HAVE BEEN PERSONALLY REVIEWED AND INTERPRETED BY MYSELF. CBC with no leukocytosis, noted mild anemia, no thrombocytopenia BMP without evidence of significant electrolyte abnormalities, no anion gap, no acute kidney injury. Urinalysis with slight inflammation but no obvious white blood cell count or UTI Urinalysis shows no evidence of urinary inflammation suggestive of UTI CT scan abdomen pelvis shows no evidence of nephrolithiasis or severe intra- abdominal pathology. Did note likely inflammation of the bladder consistent with acute cystitis. Given the patient's severe flank pain, positive CVA tenderness, inflammation of the bladder noted on CT scan we will prophylactically treat for pyelonephritis with Bactrim and await cultures. Patient otherwise was hemodynamically stable and appropriate for p.o. antibiotic trial at home. The patient and/or family, caregivers express understanding. The patient and/or family, caregivers agrees with the plan. Shared decision making: I will have a discussion with the patient and or visitors regarding risk/benefits of further testing or admission. They will be made aware of of the risk/benefits inherent in this decision they will be given the opportunity to voice understanding. Total critical care time today provided was at least 0 minutes. This excludes separately billable procedures. Critical care time (if documented) is secondary to the patient having high probability of clinically significant/life threatening deterioration in the patient's condition which required my urgent intervention. Impression: 1. Acute left leg pain 2. Acute pyelonephritis Dispo: Discharge home This note was generated with Smile dictation software. It may contain incorrect words, spelling, and punctuation that were not noted in review of the chart prior to signing. Lab Data Labs: Laboratory Results - last 24 hr 03/28/25 01:21 WBC 6.7 RBC 3.61 L Hgb 10.9 L Hct 32.1 L MCV 88.9 MCH 30.2 MCHC 34.0 RDW Std Deviation 41.1 RDW Coeff of Romario 12.7 Plt Count 208 MPV 11.9 Immature Gran % (Auto) 0.100 Neut % (Auto) 48.9 Lymph % (Auto) 43.0 H [place] % (Auto) 4.3 Eos % (Auto) 3.4 Baso % (Auto) 0.3 Absolute Neuts (auto) 3.3 Absolute Lymphs (auto) 2.87 Nucleated RBC % 0 Sodium 138 Potassium 3.5 Chloride 107 Carbon Dioxide 19.0 L Anion Gap 12 BUN 10 Creatinine 0.68 L Estim Creat Clear Calc 124.92 Est GFR (MDRD) Non-Af 117 BUN/Creatinine Ratio 14.3 Glucose 163 H Calcium 9.0 Urine Color Yellow Urine Clarity Sl. Cloudy Urine pH 6.0 Ur Specific [place] 1.015 Urine Protein 15 H Urine Glucose (UA) Normal Urine Ketones Negative Urine Occult Blood Negative Urine Nitrite Negative Urine Bilirubin Negative Urine Urobilinogen Normal Ur Leukocyte Esterase 25 H Urine RBC 0 SEEN Urine WBC 0-5 SEEN Ur Squamous Epith Cells 5-10 SEEN Urine Bacteria RARE Urine Mucus 0 SEEN Urine Test Negative Radiography Diagnostic Testing: Clinical Impression(s) from Imaging Studies Abdomen/Pelvis CT 03/28/25 01:40 IMPRESSION: 1. Mild diffuse thickening of the bladder, probably mild cystitis. 2. Hepatomegaly with hepatic steatosis. 3. Prior cholecystectomy. 4. Prior hysterectomy. Reading [facility] Discharge Plan Triage Chief Complaint: Flank Pain ED Provider: Tej Najera Dx/Rx/DC Orders Prescriptions: No Action propranolol 10 mg tablet 10 mg PO DAILY Patient Comments: TAKE 1 TABLET BY MOUTH ONCE DAILY Nurtec ODT 75 mg tablet,disintegrating 75 mg PO ONCE PRN (Reason: migraine headache) Rx Instructions: as a single dose Qulipta 60 mg tablet 60 mg PO QHS escitalopram oxalate [Lexapro] 20 mg Tablet 20 mg PO DAILY tizanidine 4 mg tablet 4 mg PO TID Patient Comments: PT STATES THAT THEY USUALLY TAKE ALL THREE TABLETS TOGETHER ONCE DAILY AT BEDTIME BECAUSE IT MAKES THEM DROWSY ( OF 10-28-23) metoclopramide HCl [Reglan] 5 mg tablet 5 mg PO Q6H PRN (Reason: nausea and vomiting) Qty: 20 0RF MAGIC MOUTH WASH (BMX) 180 mL suspension 5 - 10 ml PO Q6H PRN PRN (Reason: gastritis) Qty: 180 0RF Rx Instructions: diphenhydramine 12.5 mg/5 mL oral liquid 60 mL; aluminum-mag hydroxide- simethicone 400 mg-400 mg-40 mg/5 mL oral susp 60 mL; Lidocaine Viscous 2 % mucosal solution 60 mL; Per 180 mL pantoprazole 40 mg tablet,delayed release (DR/EC) 40 mg PO BID promethazine 25 mg tablet 25 mg PO TID PRN PRN (Reason: nausea/vomiting) oxycodone-acetaminophen [Percocet] 5-325 mg tablet 1 tab PO Q4H PRN (Reason: pain) Patient Comments: patient needs to get it filled, currently out but has not made it to her pharmacy to pick it up granisetron HCl 1 mg tablet 1 mg PO Q12H PRN sucralfate 1 gram tablet 1 g PO BID olanzapine 10 mg tablet,disintegrating 10 mg PO QHS ondansetron 4 mg tablet,disintegrating 4 mg PO Q8H PRN PRN (Reason: Nausea) Qty: 10 0RF diphenhydramine HCl 12.5 mg/5 mL liquid 12.5 mg PO PRN Patient Comments: [NO ORIGINAL SIG] mirabegron [Myrbetriq] 50 mg tablet extended release 24 hr 50 mg PO DAILY dicyclomine 20 mg tablet 20 mg PO 4X/DAY PRN PRN (Reason: abdominal pain) Creon 12,000-38,000 -60,000 unit capsule,delayed release(DR/EC) 1 cap PO TID Primary Care Provider: Dean Varghese Referrals: Dean Varghese DO [Primary Care Provider] - Print Language: Portuguese
[2025-03-28 02:21] VITALS: BP 100/57; PULSE 64; RESP 16; TEMP 36.4; O2SAT 98
[2025-03-28] MEDS: Smz/Tmp Ds Tablet 1 TABLET PO (02:21)
== END 2025-03-28 02:31 | disposition home or self-care (01) ==
PROVIDERS: Emergency Provider Emergency Medicine; Visit Provider Emergency Medicine
DX: N10 Acute pyelonephritis (principal); M79.605 Pain in left leg; Z90.710 Acquired absence of both cervix and uterus; E78.00 Pure hypercholesterolemia, unspecified; I10 Essential (primary) hypertension; F17.210 Nicotine dependence, cigarettes, uncomplicated; Z90.49 Acquired absence of other specified parts of digestive tract; Z85.41 Personal history of malignant neoplasm of cervix uteri
CPT/HCPCS: 74176; 80048; 81001; 81025; 85025; 87086; 87088; 96361; 96374; 96375; 99283; Q9967; A4216; J2405

== ENCOUNTER 2025-04-01 00:43 | Emergency (ER) | payer MEDICAID, SELFPAY ==
[2025-04-01] VITALS (7 sets, daily range): BP systolic 130–161; BP diastolic 10–90; PULSE 71–82; RESP 16–18; TEMP 36.3–36.8; O2SAT 98–100; BMI 34.9
[2025-04-01 02:07] LABS: Bacteria 0 SEEN /hpf (None Seen); Mucous, Urine 0 SEEN /hpf (<or=2+)
[2025-04-01] MEDS: Ondansetron 4 MG/2 ML Vial IV (02:14)
[2025-04-01] MEDS: 0.9% Normal Saline (1000mL) 1,000 ML 999 ML IV (02:14)
[2025-04-01] MEDS: Morphine 4 MG/ML Syringe IV (02:15)
[2025-04-01] MEDS: Ceftriaxone 1 GM/50 ML BAG IV (02:15)
[2025-04-01 02:27] LABS: Color, Urine Yellow (Yellow); Glucose, Dipstick Normal (Normal); Ketone-Dipstick Negative (Negative); Leukocyte Esterase-Dipstick Negative /ul (Negative); Nitrite-Dipstick Negative (Negative); Occult Blood-Urine Negative /ul (Negative); Protein-Dipstick 30 mg/dl (Negative); Specific Gravity, Urine 1.015 (1.002-1.030); Urine Bilirubin Dipstick Negative (Negative); Urine Clarity Sl. Cloudy (Clear); Urine Urobilinogen 1 mg/dl (Normal)
--- NOTE | 2025-04-01 02:46 | EX.ED.DYSGE1 ---
HPI History of Present Illness Chief Complaint: Complaint Informant: patient Narrative Narrative: 34-year-old female states she has been having urinary symptoms and pain in her left flank along with nausea and occasional vomiting for the past week, she was seen here diagnosed with a urinary infection, had a CT scan showing no stones, she has had this pain with stones in the past, and placed on Bactrim which she has been taking for the last 5 days with no relief. Denies any fevers or chills. States she also started having some vaginal bleeding yesterday it is better today but still present she had a hysterectomy in the past. [facility] Medical History Gastroparesis Pancreatitis Right knee pain Avulsion fracture of lateral malleolus of right fibula Left renal stone Smoker Bilateral renal stones Wears glasses Wears dentures Alcohol use Marijuana use History of renal disease Fatty liver High cholesterol Easy bruising Restless legs Syncope Gastric reflux Environmental and seasonal allergies Leg cramps History of edema History of echocardiogram History of stress test Cardiology follow-up encounter Hypertension Peptic ulcer of stomach Migraine Chronic interstitial cystitis Endometriosis Bipolar disorder Anxiety Depression Back pain Conversion disorder History of cervical cancer Kidney stone Fibromyalgia Home Medications ?Medication ?Instructions ?Recorded ?Last Taken ?Type escitalopram oxalate 20 mg tablet 20 mg PO DAILY DEPRESSION 09/22/21 10/27/23 History (Lexapro) tizanidine 4 mg tablet 4 mg PO TID MUSCLE SPASMS 10/28/23 10/27/23 History propranolol 10 mg tablet 10 mg PO DAILY 12/12/23 Unknown History atogepant 60 mg tablet (Qulipta) 60 mg PO QHS 04/21/24 Unknown History rimegepant 75 mg disintegrating 75 mg PO ONCE PRN migraine headache 04/21/24 Unknown History tablet (Nurtec ODT) ondansetron 4 mg disintegrating 4 mg PO Q8H PRN PRN Nausea #10 tabs 07/30/24 Unknown Rx tablet MAGIC MOUTH WASH (BMX) 180 mL 5 - 10 ml PO Q6H PRN PRN gastritis 11/04/24 Unknown Rx suspension #180 mL metoclopramide HCl 5 mg tablet 5 mg PO Q6H PRN nausea and 11/04/24 11/06/24 17:30 Rx (Reglan) vomiting #20 tabs oxycodone-acetaminophen 5 mg-325 1 tab PO Q4H PRN pain 11/06/24 Unknown History mg tablet (Percocet) pantoprazole 40 mg tablet,delayed 40 mg PO BID 11/06/24 Unknown History release promethazine 25 mg tablet 25 mg PO TID PRN PRN 11/06/24 Unknown History nausea/vomiting granisetron HCl 1 mg tablet 1 mg PO Q12H PRN 01/22/25 Unknown History olanzapine 10 mg disintegrating 10 mg PO QHS 01/22/25 Unknown History tablet sucralfate 1 gram tablet 1 g PO BID 01/22/25 Unknown History diphenhydramine HCl 12.5 mg/5 mL 12.5 mg PO PRN 02/03/25 Unknown History oral liquid mirabegron 50 mg tablet,extended 50 mg PO DAILY 02/03/25 Unknown History release 24 hr (Myrbetriq) dicyclomine 20 mg tablet 20 mg PO 4X/DAY PRN PRN abdominal 03/07/25 Unknown History pain [id number] 1 cap PO TID 03/07/25 Unknown History 12,000-38,000-60,000 unit capsule,delayed rel (Creon) Allergy/AdvReac Type Severity Reaction Status Date / Time amitriptyline Allergy MUSCLE Verified 04/01/25 00:44 SPASMS Bleach (Sodium Hypochlorite) Allergy Hives Verified 04/01/25 00:44 codeine Allergy Hives Verified 04/01/25 00:44 ketorolac (From Toradol) Allergy Itching Verified 04/01/25 00:44 nitrofurantoin (From Allergy Anaphylaxis Verified 04/01/25 00:44 Macrodantin) NSAIDS (Non-Steroidal Allergy Other Verified 04/01/25 00:44 Anti-Inflamma oseltamivir (From Tamiflu) Allergy SOB Verified 04/01/25 00:44 doxycycline AdvReac Vomiting Verified 04/01/25 00:44 Family History Mother Hypertension Migraine Grandmother CVA (cerebral vascular accident) Grandfather Diabetes Father Myocardial infarction Family History no significant family his Surgical History History of cystoscopy S/P laparoscopic surgery History of hysterectomy Hx of cholecystectomy Surgical History no surgical history Social History household members: significant other Smoking Status: Current every day smoker tobacco type: e-cigarettes alcohol intake: current details: occasionally substance use type: does not use caffeine: Yes what type of physical activity do you participate in: walking frequency: 1-2 times per week seatbelt use: always do you feel safe at home: Yes additional social history: Single ROS ROS ED Constitutional Constitutional ED: Denies chills or fever(s) Eyes Eyes: Denies change in vision or diplopia ENT ENT ED: Denies rhinorrhea or sore throat Cardiovascular Cardiovascular: Denies chest pain or palpitations Respiratory/Chest Respiratory/Chest: Denies cough or dyspnea Gastrointestinal Gastrointestinal: Reports abdominal pain, nausea and vomiting; Denies diarrhea Genitourinary Genitourinary ED: Reports as per HPI, decreased urination, dysuria, flank pain and urinary hesitancy; Denies hematuria Musculoskeletal Musculoskeletal: Reports back pain; Denies neck pain Integumentary Denies abscess or rash Neurologic Neurologic: Denies headache(s), paresthesias or weakness Psychiatric Psychiatric: Denies suicidal thoughts EXAM Physical Exam Const Vital Signs: 04/01/25 00:44 04/01/25 00:46 04/01/25 01:46 Temperature 97.4 F L 97.4 F L 97.4 F L Temperature Source Oral Oral Oral Pulse Rate 71 77 77 Respiratory Rate 16 16 16 Blood Pressure 135/77 H 135/77 H 135/77 H Blood Pressure Mean 96 96 96 Pulse Ox 100 100 100 Oxygen Delivery Method Room Air Room Air Room Air 04/01/25 02:00 04/01/25 02:44 04/01/25 03:00 Temperature 97.4 F L 98.3 F Temperature Source Oral Temporal Pulse Rate 77 82 Respiratory Rate 16 18 Blood Pressure 135/77 H 130/90 H 130/90 H Blood Pressure Mean 96 103 103 Pulse Ox 100 98 Oxygen Delivery Method Room Air Room Air Positive well nourished, well developed and obese Constitutional Narrative: Well-appearing General Appearance ED: well developed and NAD Nutritional Appearance: obese HEENT Reports moist mucous membranes normocephalic and atraumatic Eyes PERRL and EOMs intact bilaterally Neck full ROM and supple Resp normal respiratory effort and clear to auscultation bilaterally Cardio regular rate, regular rhythm and no murmurs GI non-distended GI Narrative: Suprapubic tenderness without guarding or rebound. Auscultation: normoactive bowel sounds Palpation: soft Back/Spine Back/Spine Narrative: Subjective left CVA tenderness. General Back: other FROM Extremity normal to inspection General Extremety ED: Negative for edema, pulses abnormal or tenderness General Extremity: Negative for edema or pulses abnormal Neuro oriented x3, CN's II-XII intact bilaterally and no sensory deficits noted Sensorium / Orientation: awake and alert Motor Exam: strength 5/5 throughout Skin no rashes or lesions noted and no wounds MDM MDM MDM Narrative Medical decision making narrative: Give the patient morphine and Zofran while obtaining repeat labs and urinalysis. That was all normal with a white blood count of 6.2 and the urine shows no sign of any infection. I sent her for repeat culture, only because her prior culture showed mixed/likely contaminant, recommended a repeat if indicated and the patient still having symptoms. If this culture comes back negative this will rule out persistent infection, I am having her discontinue the Bactrim she is on since it is possibly could be causing some of her symptoms, which may be GI and not urologic or gynecologic. She was amenable to having us do a pelvic exam because of the vaginal bleeding that she had status post hysterectomy. I performed this exam with the nurse lead miner. Externally, unremarkable no sign of any blood. On speculum exam, there is no blood or sign of any recent bleeding within the vaginal canal whatsoever and the cuff is intact. The bimanual exam was deferred. Patient reassured, she said that she was having more pain despite getting the morphine earlier. She has a history of endometriosis unclear if she could still be having that after hysterectomy, she said that the regulator mechanic in [place] that she used to see retired, so at this time she basically has not verifiable pain with having had a CT scan 1 week ago that was unremarkable except for signs of cystitis and no obstructive uropathy or renal stones or signs of pyelonephritis, I do not think that scan needs to be repeated, and so I am offering her Tylenol and dicyclomine. She declines and is okay being discharged. Referred to local [facility]. Lab Data Attestation: I reviewed the patient's lab results. Labs: Laboratory Results - last 24 hr 04/01/25 04/01/25 01:55 03:05 WBC 6.2 RBC 4.13 L Hgb 12.4 Hct 36.8 L MCV 89.1 MCH 30.0 MCHC 33.7 RDW Std Deviation 43.7 RDW Coeff of Romario 13.3 Plt Count 234 MPV 11.5 Immature Gran % (Auto) 0.300 Neut % (Auto) 54.1 Lymph % (Auto) 38.0 Boundary % (Auto) 5.8 Eos % (Auto) 1.5 Baso % (Auto) 0.3 Absolute Neuts (auto) 3.4 Absolute Lymphs (auto) 2.35 Nucleated RBC % 0 Sodium 138 Potassium 4.6 Chloride 104 Carbon Dioxide 17.8 L Anion Gap 16 H BUN 8 Creatinine 0.80 Estim Creat Clear Calc 105.24 Est GFR (MDRD) Non-Af 100 BUN/Creatinine Ratio 10.6 Glucose 123 H Calcium 9.9 Urine Color Yellow Urine Clarity Sl. Cloudy Urine pH 8.0 Ur Specific [place] 1.015 Urine Protein 30 H Urine Glucose (UA) Normal Urine Ketones Negative Urine Occult Blood Negative Urine Nitrite Negative Urine Bilirubin Negative Urine Urobilinogen 1 H Ur Leukocyte Esterase Negative Urine RBC 0-5 SEEN Urine WBC 0-5 SEEN Ur Squamous Epith Cells 25-50 SEEN Urine Bacteria 0 SEEN Urine Mucus 0 SEEN Discharge Plan Triage Chief Complaint: Complaint ED Provider: Adelso Jackson Dx/Rx/DC Orders Clinical Impression: Left sided abdominal pain of unknown cause, N&V (nausea and vomiting), Vaginal bleeding Instructions: Abdominal Pain Prescriptions: Discontinued sulfamethoxazole-trimethoprim [Bactrim DS] 800-160 mg tablet 1 tab PO BID 7 Days Qty: 14 0RF No Action propranolol 10 mg tablet 10 mg PO DAILY Patient Comments: TAKE 1 TABLET BY MOUTH ONCE DAILY Nurtec ODT 75 mg tablet,disintegrating 75 mg PO ONCE PRN (Reason: migraine headache) Rx Instructions: as a single dose Qulipta 60 mg tablet 60 mg PO QHS escitalopram oxalate [Lexapro] 20 mg Tablet 20 mg PO DAILY tizanidine 4 mg tablet 4 mg PO TID Patient Comments: PT STATES THAT THEY USUALLY TAKE ALL THREE TABLETS TOGETHER ONCE DAILY AT BEDTIME BECAUSE IT MAKES THEM DROWSY ( OF 10-28-23) metoclopramide HCl [Reglan] 5 mg tablet 5 mg PO Q6H PRN (Reason: nausea and vomiting) Qty: 20 0RF MAGIC MOUTH WASH (BMX) 180 mL suspension 5 - 10 ml PO Q6H PRN PRN (Reason: gastritis) Qty: 180 0RF Rx Instructions: diphenhydramine 12.5 mg/5 mL oral liquid 60 mL; aluminum-mag hydroxide-simethicone 400 mg-400 mg-40 mg/5 mL oral susp 60 mL; Lidocaine Viscous 2 % mucosal solution 60 mL; Per 180 mL pantoprazole 40 mg tablet,delayed release (DR/EC) 40 mg PO BID promethazine 25 mg tablet 25 mg PO TID PRN PRN (Reason: nausea/vomiting) oxycodone-acetaminophen [Percocet] 5-325 mg tablet 1 tab PO Q4H PRN (Reason: pain) Patient Comments: patient needs to get it filled, currently out but has not made it to her pharmacy to pick it up granisetron HCl 1 mg tablet 1 mg PO Q12H PRN sucralfate 1 gram tablet 1 g PO BID olanzapine 10 mg tablet,disintegrating 10 mg PO QHS ondansetron 4 mg tablet,disintegrating 4 mg PO Q8H PRN PRN (Reason: Nausea) Qty: 10 0RF diphenhydramine HCl 12.5 mg/5 mL liquid 12.5 mg PO PRN Patient Comments: [NO ORIGINAL SIG] mirabegron [Myrbetriq] 50 mg tablet extended release 24 hr 50 mg PO DAILY dicyclomine 20 mg tablet 20 mg PO 4X/DAY PRN PRN (Reason: abdominal pain) Creon 12,000-38,000 -60,000 unit capsule,delayed release(DR/EC) 1 cap PO TID Primary Care Provider: Dean Varghese Referrals: Marcin Flores MD [Med Staff - Active Staff] - (for [facility] care) Dean Varghese DO [Primary Care Provider] - Print Language: Wolof Disposition Disposition: Home, Self Care
[2025-04-01 02:51] LABS: Red Blood Cells-Urine 0-5 SEEN /hpf (0-5); Squamous Epithelial Cells - UA 25-50 SEEN /hpf (5-10); White Blood Cells 0-5 SEEN /hpf (0-5)
[2025-04-01 03:09] LABS: Absolute Lymphocyte Count 2.35 X10^3/uL (0.83-4.51); Absolute Neutrophil Count 3.4 X10^3/uL (2.0-7.7); Basophil# 0.02 X10^3/uL; Basophil% 0.3 % (0-1); Eosinophil# 0.09 X10^3/uL; Eosinophils% 1.5 % (0-5); Hematocrit 36.8 % (37-47); Hemoglobin 12.4 g/dL (12.0-15.0); Lymphocyte # 2.35 X10^3/ul (0.83-4.51); Mean Corp Hgb Conc 33.7 g/dL (32-36); Mean Corpuscular Volume 89.1 fL (81-99); Mean Platelet Vol. 11.5 fl (6.2-12.0); Monocyte# 0.36 X10^3/uL; Monocyte% 5.8 % (0-10); NRBC Flagged by Analyzer 0 % (0-5); Neutrophil # 3.35 X10^3/uL (2.7-7.7); Neutrophil % 54.1 % (47-70); Platelet Count 234 K/mm3 (150-450); RBC Distribution Width CV 13.3 % (11.6-14.6); RBC Distribution Width SD 43.7 fl (35.1-43.9); Red Blood Count 4.13 M/mm3 (4.2-5.4); White Blood Count 6.2 K/mm3 (4.4-11.0)
[2025-04-01 04:07] LABS: Anion Gap 16 (5-15); BUN 8 mg/dL (4-19); BUN/Creat Ratio 10.6 RATIO (10-20); Calcium,Total 9.9 mg/dL (7.6-11.0); Carbon Dioxide 17.8 mmol/L (21.0-32.0); Chloride 104 mmol/L (98-108); EST Glomerular Filtration Rate 100 (>60); Estimated Creatinine Clearance 105.24 ml/min (50-250); Glucose 123 mg/dL (70-99); Potassium 4.6 mmol/L (3.3-5.1); Sodium Level 138 mmol/L (133-145)
[2025-04-01] MEDS: Dicyclomine 10 MG Capsule 20 MG PO (04:41)
[2025-04-01] MEDS: Acetaminophen 500 MG Tablet 1000 MG PO (04:41)
== END 2025-04-01 04:44 | disposition home or self-care (01) ==
PROVIDERS: Emergency Provider Emergency Medicine; Visit Provider Emergency Medicine
DX: R10.9 Unspecified abdominal pain (principal); R11.2 Nausea with vomiting, unspecified; N93.9 Abnormal uterine and vaginal bleeding, unspecified; F17.290 Nicotine dependence, other tobacco product, uncomplicated; E66.9 Obesity, unspecified
CPT/HCPCS: 80048; 81001; 85025; 87077; 87086; 87088; 87186; 96361; 96365; 96375; 99283; A4216; J2405

== ENCOUNTER 2025-04-17 19:24 | Emergency (ER) | payer MEDICAID, SELFPAY ==
[2025-04-17 19:24] VITALS: BP 170/107; PULSE 83; RESP 16; TEMP 37.1; O2SAT 95; BMI 33.3
[2025-04-17 19:52] LABS: Mucous, Urine 0 SEEN /hpf (<or=2+); Red Blood Cells-Urine 0 SEEN /hpf (0-5)
--- NOTE | 2025-04-17 20:13 | EX.ED.DYSGE1 ---
HPI History of Present Illness Chief Complaint: Flank Pain Narrative Narrative: 34-year-old female past medical history of previous kidney stones presents with left flank pain that began this morning. She also noticed that her urine was dark. She took Tylenol and Pyridium without relief. She states this feels similar to her previous ureteral stones. She denies any bright red blood in her urine/hematuria, no fevers or chills. She is nauseated but not vomiting. Her last kidney stone was sometime last year. She usually sees Dr. Lagunas. She states with her last ureteral stone, it required stenting. No exacerbating or alleviating factors to her left flank pain. Occasionally radiates towards the front but is mainly in her left flank and low back. [facility] Medical History Gastroparesis Pancreatitis Right knee pain Avulsion fracture of lateral malleolus of right fibula Left renal stone Smoker Bilateral renal stones Wears glasses Wears dentures Alcohol use Marijuana use History of renal disease Fatty liver High cholesterol Easy bruising Restless legs Syncope Gastric reflux Environmental and seasonal allergies Leg cramps History of edema History of echocardiogram History of stress test Cardiology follow-up encounter Hypertension Peptic ulcer of stomach Migraine Chronic interstitial cystitis Endometriosis Bipolar disorder Anxiety Depression Back pain Conversion disorder History of cervical cancer Kidney stone Fibromyalgia Home Medications ?Medication ?Instructions ?Recorded ?Last Taken ?Type escitalopram oxalate 20 mg tablet 20 mg PO DAILY DEPRESSION 09/22/21 10/27/23 History (Lexapro) tizanidine 4 mg tablet 4 mg PO TID MUSCLE SPASMS 10/28/23 10/27/23 History propranolol 10 mg tablet 10 mg PO DAILY 12/12/23 Unknown History atogepant 60 mg tablet (Qulipta) 60 mg PO QHS 04/21/24 Unknown History rimegepant 75 mg disintegrating 75 mg PO ONCE PRN migraine headache 04/21/24 Unknown History tablet (Nurtec ODT) ondansetron 4 mg disintegrating 4 mg PO Q8H PRN PRN Nausea #10 tabs 07/30/24 Unknown Rx tablet MAGIC MOUTH WASH (BMX) 180 mL 5 - 10 ml PO Q6H PRN PRN gastritis 11/04/24 Unknown Rx suspension #180 mL metoclopramide HCl 5 mg tablet 5 mg PO Q6H PRN nausea and 11/04/24 11/06/24 17:30 Rx (Reglan) vomiting #20 tabs oxycodone-acetaminophen 5 mg-325 1 tab PO Q4H PRN pain 11/06/24 Unknown History mg tablet (Percocet) pantoprazole 40 mg tablet,delayed 40 mg PO BID 11/06/24 Unknown History release promethazine 25 mg tablet 25 mg PO TID PRN PRN 11/06/24 Unknown History nausea/vomiting granisetron HCl 1 mg tablet 1 mg PO Q12H PRN 01/22/25 Unknown History olanzapine 10 mg disintegrating 10 mg PO QHS 01/22/25 Unknown History tablet sucralfate 1 gram tablet 1 g PO BID 01/22/25 Unknown History diphenhydramine HCl 12.5 mg/5 mL 12.5 mg PO PRN 02/03/25 Unknown History oral liquid mirabegron 50 mg tablet,extended 50 mg PO DAILY 02/03/25 Unknown History release 24 hr (Myrbetriq) dicyclomine 20 mg tablet 20 mg PO 4X/DAY PRN PRN abdominal 03/07/25 Unknown History pain [id number]-[id number] 1 cap PO TID 03/07/25 Unknown History 12,000-38,000-60,000 unit capsule,delayed rel (Creon) sulfamethoxazole 800 1 tab PO BID #14 tabs 04/17/25 Unknown Rx mg-trimethoprim 160 mg tablet (Bactrim DS) Allergy/AdvReac Type Severity Reaction Status Date / Time amitriptyline Allergy MUSCLE Verified 04/17/25 19:24 SPASMS Bleach (Sodium Hypochlorite) Allergy Hives Verified 04/17/25 19:24 codeine Allergy Hives Verified 04/17/25 19:24 ketorolac (From Toradol) Allergy Itching Verified 04/17/25 19:24 nitrofurantoin (From Allergy Anaphylaxis Verified 04/17/25 19:24 Macrodantin) NSAIDS (Non-Steroidal Allergy Other Verified 04/17/25 19:24 Anti-Inflamma oseltamivir (From Tamiflu) Allergy SOB Verified 04/17/25 19:24 doxycycline AdvReac Vomiting Verified 04/17/25 19:24 Family History Mother Hypertension Migraine Grandmother CVA (cerebral vascular accident) Grandfather Diabetes Father Myocardial infarction Surgical History History of cystoscopy S/P laparoscopic surgery History of hysterectomy Hx of cholecystectomy Social History household members: significant other Smoking Status: Current every day smoker tobacco type: e-cigarettes alcohol intake: current details: occasionally substance use type: does not use caffeine: Yes what type of physical activity do you participate in: walking frequency: 1-2 times per week seatbelt use: always do you feel safe at home: Yes additional social history: Single ROS ROS ED ROS Narrative Review of systems positive for left flank pain radiating to front, left low back pain, positive dark urine but no gross hematuria, no fevers or chills. Positive nausea but no vomiting. EXAM Physical Exam Narrative Exam Narrative: Afebrile. Vital signs noted. Nontoxic-appearing. Cardiovascular examination reveals a regular rate and rhythm. Lungs are clear to auscultation bilaterally. Abdomen is soft and nontender without guarding or rebound. Questionable CVA tenderness to percussion on left. Positive bowel sounds. Neurological examination nonfocal, nonlateralizing. Const Vital Signs: 04/17/25 19:24 04/17/25 21:23 Temperature 98.7 F Temperature Source Oral Pulse Rate 83 87 Respiratory Rate 16 16 Blood Pressure 170/107 H 162/89 H Blood Pressure Mean 128 113 Pulse Ox 95 99 Oxygen Delivery Method Room Air MDM MDM MDM Narrative Medical decision making narrative: Differential diagnosis includes but not limited to pyelonephritis versus ureterolithiasis. History and physical does not support diverticulitis. Patient is status post remote hysterectomy so I do not feel that ectopic is in the differential diagnosis. Patient administered morphine and ondansetron which she has been given previously as she has allergies to ketorolac and NSAIDs. Urinalysis obtained in triage and is currently pending. I do feel CT imaging is indicated. I reviewed her laboratory work and she has normal white count of 5.9 with hemoglobin 13.2, hematocrit 38.3, platelet count normal at 213. Sodium normal at 142, potassium 3.7, glucose of 100, BUN at 6 and creatinine 0.95. Carbon dioxide is low at 18.1 but in review of prior labs, she has a chronically low carbon dioxide. Although her anion gap is 17, I do feel this is secondary to a low bicarb, and I do not feel she is in DKA with a glucose of 100. Alk phos slightly elevated at 155 which I think is nonspecific as well as AST is 44. Urinalysis is negative for ketones but positive for nitrites and 10-25 WBCs. She was started on Bactrim DS as she has allergies to multiple medications. Including penicillins and nitrofurantoin. I reviewed the radiology report of the CT of the abdomen pelvis which shows no acute process, no obstructing ureteral stone. At this point in time, I feel she can be discharged safely home with follow-up. She states she has an appoint with her primary care provider tomorrow. I encouraged her to keep this. Return instructions to the emergency department were reviewed. Disposition is discharged home in stable condition. History & Record Review Discussion w/independent historian: Patient Lab Data Attestation: I reviewed the patient's lab results. Labs: Laboratory Results - last 24 hr 04/17/25 04/17/25 19:40 20:10 WBC 5.9 RBC 4.39 Hgb 13.2 Hct 38.3 MCV 87.2 MCH 30.1 MCHC 34.5 RDW Std Deviation 42.5 RDW Coeff of Romario 13.3 Plt Count 213 MPV 12.8 H Immature Gran % (Auto) 0.000 Neut % (Auto) 55.1 Lymph % (Auto) 38.9 Early % (Auto) 5.2 Eos % (Auto) 0.5 Baso % (Auto) 0.3 Absolute Neuts (auto) 3.3 Absolute Lymphs (auto) 2.31 Nucleated RBC % 0 Sodium 142 Potassium 3.7 Chloride 106 Carbon Dioxide 18.1 L Anion Gap 17 H BUN 6 Creatinine 0.95 Estim Creat Clear Calc 86.44 Est GFR (MDRD) Non-Af 81 BUN/Creatinine Ratio 6.6 L Glucose 100 H Calcium 9.9 Total Bilirubin 0.37 AST 44 H ALT 33 Alkaline Phosphatase 155 H Total Protein 8.1 Albumin 4.5 Globulin 3.5 Albumin/Globulin Ratio 1.3 Urine Color Yellow Urine Clarity Clear Urine pH 7.0 Ur Specific [place] 1.010 Urine Protein 15 H Urine Glucose (UA) Normal Urine Ketones Negative Urine Occult Blood 10 H Urine Nitrite Positive H Urine Bilirubin 1 H Urine Urobilinogen 4 H Ur Leukocyte Esterase 25 H Urine RBC 0 SEEN Urine WBC 10-25 SEEN Ur Squamous Epith Cells 0-5 SEEN Urine Bacteria 1+ Urine Mucus 0 SEEN Radiography Diagnostic Testing: Clinical Impression(s) from Imaging Studies Abdomen/Pelvis CT 04/17/25 20:25 IMPRESSION: 1. No acute intra-abdominal abnormality, to include no urinary stone. 2. Hepatic steatosis. 3. Surgical clips at the cecum. Correlate with history. Reading Location: [id number] Discharge Plan Triage Chief Complaint: Flank Pain ED Provider: Hayder Hudson Dx/Rx/DC Orders Clinical Impression: UTI (urinary tract infection), Acute left flank pain Instructions: ED Flank Pain, Uncertain Cause, ED Cystitis Female Adult Prescriptions: New sulfamethoxazole-trimethoprim [Bactrim DS] 800-160 mg tablet 1 tab PO BID Qty: 14 0RF No Action propranolol 10 mg tablet 10 mg PO DAILY Patient Comments: TAKE 1 TABLET BY MOUTH ONCE DAILY Nurtec ODT 75 mg tablet,disintegrating 75 mg PO ONCE PRN (Reason: migraine headache) Rx Instructions: as a single dose Qulipta 60 mg tablet 60 mg PO QHS escitalopram oxalate [Lexapro] 20 mg Tablet 20 mg PO DAILY tizanidine 4 mg tablet 4 mg PO TID Patient Comments: PT STATES THAT THEY USUALLY TAKE ALL THREE TABLETS TOGETHER ONCE DAILY AT BEDTIME BECAUSE IT MAKES THEM DROWSY ( OF 10-28-23) metoclopramide HCl [Reglan] 5 mg tablet 5 mg PO Q6H PRN (Reason: nausea and vomiting) Qty: 20 0RF MAGIC MOUTH WASH (BMX) 180 mL suspension 5 - 10 ml PO Q6H PRN PRN (Reason: gastritis) Qty: 180 0RF Rx Instructions: diphenhydramine 12.5 mg/5 mL oral liquid 60 mL; aluminum-mag hydroxide-simethicone 400 mg-400 mg-40 mg/5 mL oral susp 60 mL; Lidocaine Viscous 2 % mucosal solution 60 mL; Per 180 mL pantoprazole 40 mg tablet,delayed release (DR/EC) 40 mg PO BID promethazine 25 mg tablet 25 mg PO TID PRN PRN (Reason: nausea/vomiting) oxycodone-acetaminophen [Percocet] 5-325 mg tablet 1 tab PO Q4H PRN (Reason: pain) Patient Comments: patient needs to get it filled, currently out but has not made it to her pharmacy to pick it up granisetron HCl 1 mg tablet 1 mg PO Q12H PRN sucralfate 1 gram tablet 1 g PO BID olanzapine 10 mg tablet,disintegrating 10 mg PO QHS ondansetron 4 mg tablet,disintegrating 4 mg PO Q8H PRN PRN (Reason: Nausea) Qty: 10 0RF diphenhydramine HCl 12.5 mg/5 mL liquid 12.5 mg PO PRN Patient Comments: [NO ORIGINAL SIG] mirabegron [Myrbetriq] 50 mg tablet extended release 24 hr 50 mg PO DAILY dicyclomine 20 mg tablet 20 mg PO 4X/DAY PRN PRN (Reason: abdominal pain) Creon 12,000-38,000 -60,000 unit capsule,delayed release(DR/EC) 1 cap PO TID Primary Care Provider: Dean Varghese Referrals: Dean Varghese DO [Primary Care Provider] - Keep [facility] appointment Activity Restrictions/Additional Instructions: Your CAT scan of the abdomen and pelvis/flank did not show any signs of obstruction or kidney stone. Your urine culture is currently pending. Take the antibiotics as directed. Follow-up with your primary care provider tomorrow as scheduled. Return with sustained high fever, new or worsening symptoms. Print Language: [place] Disposition Disposition: Home, Self Care
[2025-04-17] MEDS: Morphine 4 MG/ML Syringe IV ×2 (20:16→22:14)
[2025-04-17] MEDS: Ondansetron 4 MG/2 ML Vial IV (20:16)
[2025-04-17 20:24] LABS: Color, Urine Yellow (Yellow); Glucose, Dipstick Normal (Normal); Ketone-Dipstick Negative (Negative); Leukocyte Esterase-Dipstick 25 /ul (Negative); Nitrite-Dipstick Positive (Negative); Occult Blood-Urine 10 /ul (Negative); Protein-Dipstick 15 mg/dl (Negative); Urine Clarity Clear (Clear); Urine Urobilinogen 4 mg/dl (Normal)
--- NOTE | 2025-04-17 20:25 | CT_ITS ---
PROCEDURE: ABDOMEN/PELVIS WITHOUT CONT 04/17/2025 REASON FOR EXAM: KIDNEY STONE TECHNIQUE: ABDOMEN/PELVIS WITHOUT CONT Noncontrast technique limits evaluation of the abdominal and pelvic viscera. Coronal and Sagittal reconstruction series were provided. One or more dose reduction techniques were used (e.g., Automated exposure control, adjustment of the mA and/or kV according to patient size, use of iterative reconstruction technique). CTDIvol: 13.69 mGy DLP: 735 mGy-cm COMPARISON: CT abdomen and pelvis on 03/28/2025 FINDINGS: Lung bases: Unremarkable Liver: Diffuse fatty infiltration. Gallbladder: Surgically absent. Spleen: Normal size. Pancreas: Normal size. No surrounding inflammation. Adrenals: Unremarkable Kidneys: No stones or hydronephrosis. Bladder: Unremarkable Reproductive Organs: Prior hysterectomy. Adnexal regions are unremarkable. Bowel: No obstruction or inflammation. There are surgical clips at the cecum, new from prior. Appendix: Unremarkable Lymph nodes: Unremarkable. Vasculature: The abdominal aorta and IVC contours are normal. Noncontrast technique limits evaluation. Bones: Unremarkable Soft tissues: Fat containing umbilical hernia. CT/Abdomen/Pelvis without Cont IMPRESSION: 1. No acute intra-abdominal abnormality, to include no urinary stone. 2. Hepatic steatosis. 3. Surgical clips at the cecum. Correlate with history. Reading Location: [id number]
[2025-04-17 20:26] LABS: Urine Bilirubin Dipstick 1 mg/dL (Negative)
[2025-04-17 20:40] LABS: Bacteria 1+ /hpf (None Seen); Squamous Epithelial Cells - UA 0-5 SEEN /hpf (5-10); White Blood Cells 10-25 SEEN /hpf (0-5)
[2025-04-17 20:44] LABS: Absolute Lymphocyte Count 2.31 X10^3/uL (0.83-4.51); Absolute Neutrophil Count 3.3 X10^3/uL (2.0-7.7); Basophil# 0.02 X10^3/uL; Basophil% 0.3 % (0-1); Eosinophil# 0.03 X10^3/uL; Eosinophils% 0.5 % (0-5); Hematocrit 38.3 % (37-47); Hemoglobin 13.2 g/dL (12.0-15.0); Lymphocyte # 2.31 X10^3/ul (0.83-4.51); Lymphocyte % 38.9 % (19-41); Mean Corp Hgb Conc 34.5 g/dL (32-36); Mean Corpuscular Hgb 30.1 pg (27.0-32.0); Mean Corpuscular Volume 87.2 fL (81-99); Mean Platelet Vol. 12.8 fl (6.2-12.0); Monocyte# 0.31 X10^3/uL; Monocyte% 5.2 % (0-10); NRBC Flagged by Analyzer 0 % (0-5); Neutrophil # 3.27 X10^3/uL (2.7-7.7); Neutrophil % 55.1 % (47-70); Platelet Count 213 K/mm3 (150-450); RBC Distribution Width CV 13.3 % (11.6-14.6); RBC Distribution Width SD 42.5 fl (35.1-43.9); Red Blood Count 4.39 M/mm3 (4.2-5.4); White Blood Count 5.9 K/mm3 (4.4-11.0)
[2025-04-17 21:10] LABS: ALB/GLOB Ratio 1.3 RATIO (0.9-2.4); AST(SGOT) 44 U/L (<=31); Alanine Aminotransfer ALT/SGPT 33 U/L (<=34); Albumin, Serum 4.5 g/dL (3.5-5.0); Alkaline Phosphatase 155 U/L (35-104); Anion Gap 17 (5-15); BUN 6 mg/dL (4-19); BUN/Creat Ratio 6.6 RATIO (10-20); Calcium,Total 9.9 mg/dL (7.6-11.0); Carbon Dioxide 18.1 mmol/L (21.0-32.0); Chloride 106 mmol/L (98-108); Creatinine, Serum 0.95 mg/dL (0.70-1.20); EST Glomerular Filtration Rate 81 (>60); Estimated Creatinine Clearance 86.44 ml/min (50-250); Globulin 3.5 g/dL (2.2-4.2); Glucose 100 mg/dL (70-99); Potassium 3.7 mmol/L (3.3-5.1); Protein, Total 8.1 g/dL (5.9-8.4); Sodium Level 142 mmol/L (133-145); Total Bilirubin 0.37 mg/dL (0.00-1.30)
[2025-04-17] MEDS: Smz/Tmp Ds Tablet 1 TABLET PO (21:16)
[2025-04-17 21:23] VITALS: BP 162/89; PULSE 87; RESP 16; O2SAT 99
[2025-04-17 22:17] VITALS: BP 177/107; PULSE 106; RESP 18; TEMP 37.1; O2SAT 97
== END 2025-04-17 22:31 | disposition home or self-care (01) ==
PROVIDERS: Emergency Provider Emergency Medicine; Visit Provider Emergency Medicine
DX: N39.0 Urinary tract infection, site not specified (principal); F31.9 Bipolar disorder, unspecified; I10 Essential (primary) hypertension; F41.9 Anxiety disorder, unspecified; K21.9 Gastro-esophageal reflux disease without esophagitis; M79.7 Fibromyalgia; G25.81 Restless legs syndrome; G43.909 Migraine, unspecified, not intractable, without status migrainosus; F17.290 Nicotine dependence, other tobacco product, uncomplicated; Z90.49 Acquired absence of other specified parts of digestive tract; Z87.19 Personal history of other diseases of the digestive system; Z87.11 Personal history of peptic ulcer disease; Z87.442 Personal history of urinary calculi; Z79.899 Other long term (current) drug therapy
CPT/HCPCS: 74176; 80053; 81001; 85025; 87086; 87088; 96374; 96375; 96376; 99283; A4216; J2405

== ENCOUNTER 2025-04-30 22:03 | Emergency (ER) | payer MEDICAID, SELFPAY ==
[2025-04-30 22:05] VITALS: BP 110/73; PULSE 63; RESP 18; TEMP 36.9; O2SAT 99; BMI 33.1
[2025-04-30] MEDS: 0.9% Normal Saline (1000mL) 1,000 ML 999 ML IV (23:00)
[2025-04-30 23:05] VITALS: BP 101/68; PULSE 57; RESP 16; O2SAT 97
[2025-04-30 23:14] LABS: Mucous, Urine 0 SEEN /hpf (<or=2+)
[2025-04-30 23:18] LABS: Color, Urine Yellow (Yellow); Glucose, Dipstick Normal (Normal); Ketone-Dipstick Negative (Negative); Leukocyte Esterase-Dipstick 25 /ul (Negative); Nitrite-Dipstick Negative (Negative); Occult Blood-Urine 10 /ul (Negative); Protein-Dipstick 15 mg/dl (Negative); Specific Gravity, Urine 1.010 (1.002-1.030); Urine Bilirubin Dipstick Negative (Negative)
[2025-04-30 23:27] LABS: Internal QC Validated? YES +Cl - CLEAR BKGD; Pregnancy, Urine Negative Negative; Record Kit Lot#,Urine Preg 0000947241; Red Blood Cells-Urine 0-5 SEEN /hpf (0-5); Squamous Epithelial Cells - UA 10-25 SEEN /hpf (5-10); Transitional Epithelial - Ur 0-5 SEEN /hpf (0-5)
[2025-04-30 23:35] LABS: Hematocrit 33.8 % (37-47); Hemoglobin 11.4 g/dL (12.0-15.0); Immature Granulocytes Count 0.020 X10^3/uL (0.0-0.0); Mean Corp Hgb Conc 33.7 g/dL (32-36); Mean Corpuscular Volume 89.4 fL (81-99); Mean Platelet Vol. 10.6 fl (6.2-12.0); NRBC Flagged by Analyzer 0 % (0-5); Platelet Count 226 K/mm3 (150-450); RBC Distribution Width CV 14.1 % (11.6-14.6); RBC Distribution Width SD 46.4 fl (35.1-43.9); Red Blood Count 3.78 M/mm3 (4.2-5.4); White Blood Count 8.8 K/mm3 (4.4-11.0)
[2025-05-01 00:01] LABS: Lipase 67 U/L (13-75); Magnesium 1.6 mg/dL (1.5-2.2)
[2025-05-01 00:04] LABS: AST(SGOT) 35 U/L (<=31); Alanine Aminotransfer ALT/SGPT 29 U/L (<=34); Albumin, Serum 3.9 g/dL (3.5-5.0); Alkaline Phosphatase 119 U/L (35-104); Anion Gap 13 (5-15); BUN 11 mg/dL (4-19); BUN/Creat Ratio 17.1 RATIO (10-20); Bilirubin, Direct < 0.08 mg/dL (0.00-0.30); Calcium,Total 8.8 mg/dL (7.6-11.0); Carbon Dioxide 18.0 mmol/L (21.0-32.0); Chloride 108 mmol/L (98-108); Estimated Creatinine Clearance 122.09 ml/min (50-250); Globulin 2.6 g/dL (2.2-4.2); Glucose 127 mg/dL (70-99); Potassium 3.9 mmol/L (3.3-5.1)
[2025-05-01 00:25] VITALS: BP 101/68; PULSE 71; RESP 15; TEMP 36.1; O2SAT 99
== END 2025-05-01 00:25 | disposition home or self-care (01) ==
PROVIDERS: Emergency Provider Emergency Medicine; Visit Provider Emergency Medicine
DX: R10.12 Left upper quadrant pain (principal); F31.9 Bipolar disorder, unspecified; K31.84 Gastroparesis; R10.13 Epigastric pain; I10 Essential (primary) hypertension; K21.9 Gastro-esophageal reflux disease without esophagitis; F41.9 Anxiety disorder, unspecified; E66.9 Obesity, unspecified; M79.7 Fibromyalgia; E78.00 Pure hypercholesterolemia, unspecified; G25.81 Restless legs syndrome; G43.909 Migraine, unspecified, not intractable, without status migrainosus; F17.290 Nicotine dependence, other tobacco product, uncomplicated; Z87.11 Personal history of peptic ulcer disease; Z90.49 Acquired absence of other specified parts of digestive tract; Z87.19 Personal history of other diseases of the digestive system; Z79.899 Other long term (current) drug therapy
CPT/HCPCS: 74022; 80048; 80076; 81001; 81025; 83690; 83735; 85025; 96361; 96374; 96375; 99282; A4216; J2405

== ENCOUNTER 2025-05-12 23:58 | Emergency (ER) | payer MEDICAID, SELFPAY ==
[2025-05-12 23:59] VITALS: BP 99/64; PULSE 59; RESP 16; TEMP 37.1; O2SAT 98; BMI 34.4
[2025-05-13 00:48] LABS: Hematocrit 34.4 % (37-47); Hemoglobin 11.7 g/dL (12.0-15.0); Immature Granulocytes Count 0.020 X10^3/uL (0.0-0.0); Mean Corp Hgb Conc 34.0 g/dL (32-36); Mean Corpuscular Volume 88.9 fL (81-99); Mean Platelet Vol. 10.9 fl (6.2-12.0); NRBC Flagged by Analyzer 0 % (0-5); Platelet Count 226 K/mm3 (150-450); RBC Distribution Width CV 14.8 % (11.6-14.6); RBC Distribution Width SD 47.6 fl (35.1-43.9); Red Blood Count 3.87 M/mm3 (4.2-5.4); White Blood Count 8.1 K/mm3 (4.4-11.0)
[2025-05-13] MEDS: 0.9% Normal Saline (1000mL) 1,000 ML 999 ML IV (00:48)
--- NOTE | 2025-05-13 00:50 | ED.VIS.FEGU ---
HPI HPI - Female History of Present Illness Chief Complaint: Flank Pain Narrative Narrative: Chief complaint and HPI: Left flank pain. 34-year-old female with past medical history of urolithiasis, hysterectomy, chronic abdominal issues with nausea, fibromyalgia presents for evaluation of left flank pain. Associated symptom is urinary frequency and chronic nausea. Onset of symptoms 3 days ago. Denies any fever, chills, chest pain, shortness of breath, vomiting, dysuria. Review of systems: See HPI Medications: As listed on the chart Allergies: As listed on the chart PFSH: Per chart Vital signs: As listed on the chart. Reviewed. Physical exam: Gen: A&O x3, NAD Head: Normocephalic, atraumatic Eyes: No sclera icterus, conjunctiva clear ENT: Moist mucous membranes Neck: Trachea midline, No JVD CV: RRR, no murmurs, no peripheral edema Resp: Lungs CTA BL, no w/r/c GI: Abd soft, non-distended, non-tender, no r/r/g : No CVA tenderness Musc: Full ROM, no deformity Skin: Warm, dry Neuro: Alert, oriented, grossly intact, sensation intact Psych: Cooperative, appropriate mood and affect [facility] Medical History Gastroparesis Pancreatitis Right knee pain Avulsion fracture of lateral malleolus of right fibula Left renal stone Smoker Bilateral renal stones Wears glasses Wears dentures Alcohol use Marijuana use History of renal disease Fatty liver High cholesterol Easy bruising Restless legs Syncope Gastric reflux Environmental and seasonal allergies Leg cramps History of edema History of echocardiogram History of stress test Cardiology follow-up encounter Hypertension Peptic ulcer of stomach Migraine Chronic interstitial cystitis Endometriosis Bipolar disorder Anxiety Depression Back pain Conversion disorder History of cervical cancer Kidney stone Fibromyalgia Home Medications ?Medication ?Instructions ?Recorded ?Last Taken ?Type escitalopram oxalate 20 mg tablet 20 mg PO DAILY DEPRESSION 09/22/21 10/27/23 History (Lexapro) tizanidine 4 mg tablet 4 mg PO TID MUSCLE SPASMS 10/28/23 10/27/23 History propranolol 10 mg tablet 10 mg PO DAILY 12/12/23 Unknown History atogepant 60 mg tablet (Qulipta) 60 mg PO QHS 04/21/24 Unknown History rimegepant 75 mg disintegrating 75 mg PO ONCE PRN migraine headache 04/21/24 Unknown History tablet (Nurtec ODT) ondansetron 4 mg disintegrating 4 mg PO Q8H PRN PRN Nausea #10 tabs 07/30/24 Unknown Rx tablet MAGIC MOUTH WASH (BMX) 180 mL 5 - 10 ml PO Q6H PRN PRN gastritis 11/04/24 Unknown Rx suspension #180 mL metoclopramide HCl 5 mg tablet 5 mg PO Q6H PRN nausea and 11/04/24 11/06/24 17:30 Rx (Reglan) vomiting #20 tabs oxycodone-acetaminophen 5 mg-325 1 tab PO Q4H PRN pain 11/06/24 Unknown History mg tablet (Percocet) pantoprazole 40 mg tablet,delayed 40 mg PO BID 11/06/24 Unknown History release promethazine 25 mg tablet 25 mg PO TID PRN PRN 11/06/24 Unknown History nausea/vomiting granisetron HCl 1 mg tablet 1 mg PO Q12H PRN 01/22/25 Unknown History olanzapine 10 mg disintegrating 10 mg PO QHS 01/22/25 Unknown History tablet sucralfate 1 gram tablet 1 g PO BID 01/22/25 Unknown History diphenhydramine HCl 12.5 mg/5 mL 12.5 mg PO PRN 02/03/25 Unknown History oral liquid mirabegron 50 mg tablet,extended 50 mg PO DAILY 02/03/25 Unknown History release 24 hr (Myrbetriq) dicyclomine 20 mg tablet 20 mg PO 4X/DAY PRN PRN abdominal 03/07/25 Unknown History pain [id number] 1 cap PO TID 03/07/25 Unknown History 12,000-38,000-60,000 unit capsule,delayed rel (Creon) sulfamethoxazole 800 1 tab PO BID #14 tabs 04/17/25 Unknown Rx mg-trimethoprim 160 mg tablet (Bactrim DS) Allergy/AdvReac Type Severity Reaction Status Date / Time amitriptyline Allergy MUSCLE Verified 05/12/25 23:58 SPASMS Bleach (Sodium Hypochlorite) Allergy Hives Verified 05/12/25 23:58 ketorolac (From Toradol) Allergy Itching Verified 05/12/25 23:58 nitrofurantoin (From Allergy Anaphylaxis Verified 05/12/25 23:58 Macrodantin) NSAIDS (Non-Steroidal Allergy Other Verified 05/12/25 23:58 Anti-Inflamma oseltamivir (From Tamiflu) Allergy SOB Verified 05/12/25 23:58 doxycycline AdvReac Vomiting Verified 05/12/25 23:58 Family History Mother Hypertension Migraine Grandmother CVA (cerebral vascular accident) Grandfather Diabetes Father Myocardial infarction Surgical History History of cystoscopy S/P laparoscopic surgery History of hysterectomy Hx of cholecystectomy Social History household members: significant other Smoking Status: Current every day smoker tobacco type: e-cigarettes alcohol intake: current details: occasionally substance use type: does not use caffeine: Yes what type of physical activity do you participate in: walking frequency: 1-2 times per week seatbelt use: always do you feel safe at home: Yes additional social history: Single EXAM Physical Exam Const Vital Signs: 05/12/25 23:59 05/13/25 02:11 Temperature 98.7 F 98.1 F Temperature Source Temporal Oral Pulse Rate 59 L 63 Respiratory Rate 16 16 Blood Pressure 99/64 93/45 L Blood Pressure Mean 75 61 Pulse Ox 98 100 Oxygen Delivery Method Room Air Room Air MDM MDM MDM Narrative Medical decision making narrative: 34-year-old female with past medical history of urolithiasis, hysterectomy, chronic abdominal issues with nausea, fibromyalgia presents for evaluation of left flank pain. Associated symptom is urinary frequency and chronic nausea. Onset of symptoms 3 days ago. Differential diagnosis includes but is not limited to urolithiasis, UTI, electrolyte abnormality, viral illness. NS bolus, morphine, Zofran ordered for symptoms. Patient has an allergy to Toradol. Laboratory workup ordered including CT abdomen pelvis without contrast. Serum was originally ordered however canceled due to patient's history of hysterectomy. CBC without leukocytosis. Patient has stable anemia. BMP unremarkable. Serum resulted even though it was canceled. Negative. CT abdomen pelvis shows no acute intra-abdominal findings. UA is not a clean sample given that she has greater than 100 squamous epithelial cells. 5-10 WBC. 25 leuk esterase. 3+ bacteria. No nitrates. Given that this not a clean sample, hard to predict if this is positive for UTI. Will send for culture. Patient endorsing some urinary frequency but denies any dysuria. I did update her of all the results. Patient was given the option of holding off on antibiotics and waiting for urine culture to assess for UTI versus treating for suspected UTI. Patient would like to hold off on antibiotics at this time. I do think this is appropriate. Patient is able to discharge home. No clear etiology for her flank pain at this time. May be secondary to her chronic pain. Follow-up with primary care physician. Return precautions explained. She confirmed understanding of the plan. Patient was discharged home. Tylenol as needed for pain given that she cannot take Motrin. Questing Tylenol prior to discharge home. This was ordered. Impression: 1. Flank pain Lab Data Labs: Laboratory Results - last 24 hr 05/13/25 05/13/25 00:40 01:10 WBC 8.1 RBC 3.87 L Hgb 11.7 L Hct 34.4 L MCV 88.9 MCH 30.2 MCHC 34.0 RDW Std Deviation 47.6 H RDW Coeff of Romario 14.8 H Plt Count 226 MPV 10.9 Immature Gran % (Auto) 0.200 Neut % (Auto) 51.5 Lymph % (Auto) 41.2 H [place] % (Auto) 6.4 Eos % (Auto) 0.5 Baso % (Auto) 0.2 Absolute Neuts (auto) 4.2 Absolute Lymphs (auto) 3.34 Nucleated RBC % 0 Sodium 136 Potassium 3.5 Chloride 101 Carbon Dioxide 21.5 Anion Gap 14 BUN 14 Creatinine 0.78 Estim Creat Clear Calc 107.04 Est GFR (MDRD) Non-Af 102 BUN/Creatinine Ratio 17.4 Glucose 138 H Calcium 9.5 Serum , Qual NEGATIVE Urine Color Yellow Urine Clarity Clear Urine pH 6.0 Ur Specific [place] 1.020 Urine Protein 30 H Urine Glucose (UA) Normal Urine Ketones Negative Urine Occult Blood 10 H Urine Nitrite Negative Urine Bilirubin Negative Urine Urobilinogen Normal Ur Leukocyte Esterase 25 H Urine RBC 0 SEEN Urine WBC 5-10 SEEN Ur Squamous Epith Cells > 100 SEEN Calcium Oxalate Crystal 2+ Urine Bacteria 3+ Urine Mucus 2+ Radiography Diagnostic Testing: Clinical Impression(s) from Imaging Studies Abdomen/Pelvis CT 05/13/25 01:21 IMPRESSION: No acute findings Reading Location: [place] [address] Discharge Plan Triage Chief Complaint: Flank Pain ED Provider: Clayton Aceves Dx/Rx/DC Orders Clinical Impression: Flank pain Instructions: ED Flank Pain, Uncertain Cause Prescriptions: No Action propranolol 10 mg tablet 10 mg PO DAILY Patient Comments: TAKE 1 TABLET BY MOUTH ONCE DAILY Nurtec ODT 75 mg tablet,disintegrating 75 mg PO ONCE PRN (Reason: migraine headache) Rx Instructions: as a single dose Qulipta 60 mg tablet 60 mg PO QHS escitalopram oxalate [Lexapro] 20 mg Tablet 20 mg PO DAILY tizanidine 4 mg tablet 4 mg PO TID Patient Comments: PT STATES THAT THEY USUALLY TAKE ALL THREE TABLETS TOGETHER ONCE DAILY AT BEDTIME BECAUSE IT MAKES THEM DROWSY ( OF 10-28-23) metoclopramide HCl [Reglan] 5 mg tablet 5 mg PO Q6H PRN (Reason: nausea and vomiting) Qty: 20 0RF MAGIC MOUTH WASH (BMX) 180 mL suspension 5 - 10 ml PO Q6H PRN PRN (Reason: gastritis) Qty: 180 0RF Rx Instructions: diphenhydramine 12.5 mg/5 mL oral liquid 60 mL; aluminum-mag hydroxide-simethicone 400 mg-400 mg-40 mg/5 mL oral susp 60 mL; Lidocaine Viscous 2 % mucosal solution 60 mL; Per 180 mL pantoprazole 40 mg tablet,delayed release (DR/EC) 40 mg PO BID promethazine 25 mg tablet 25 mg PO TID PRN PRN (Reason: nausea/vomiting) oxycodone-acetaminophen [Percocet] 5-325 mg tablet 1 tab PO Q4H PRN (Reason: pain) Patient Comments: patient needs to get it filled, currently out but has not made it to her pharmacy to pick it up granisetron HCl 1 mg tablet 1 mg PO Q12H PRN sucralfate 1 gram tablet 1 g PO BID olanzapine 10 mg tablet,disintegrating 10 mg PO QHS sulfamethoxazole-trimethoprim [Bactrim DS] 800-160 mg tablet 1 tab PO BID Qty: 14 0RF ondansetron 4 mg tablet,disintegrating 4 mg PO Q8H PRN PRN (Reason: Nausea) Qty: 10 0RF diphenhydramine HCl 12.5 mg/5 mL liquid 12.5 mg PO PRN Patient Comments: [NO ORIGINAL SIG] mirabegron [Myrbetriq] 50 mg tablet extended release 24 hr 50 mg PO DAILY dicyclomine 20 mg tablet 20 mg PO 4X/DAY PRN PRN (Reason: abdominal pain) Creon 12,000-38,000 -60,000 unit capsule,delayed release(DR/EC) 1 cap PO TID Primary Care Provider: Dean Varghese Referrals: Dean Varghese DO [Primary Care Provider] - 3-5 Days Activity Restrictions/Additional Instructions: Follow-up with your primary care physician. Return back to the ED if symptoms change or worsen. You received Tylenol here in the emergency department, no Tylenol for 6 hours. Print Language: Cameroonian Disposition Disposition: Home, Self Care
[2025-05-13 00:57] LABS: Internal QC Validated? YES +Cl - CLEAR BKGD; Pregnancy, Serum, hCG Quali. NEGATIVE Negative; Record Kit Lot#, Serum Preg. 0000962302
[2025-05-13 01:15] LABS: Anion Gap 14 (5-15); BUN 14 mg/dL (4-19); BUN/Creat Ratio 17.4 RATIO (10-20); Calcium,Total 9.5 mg/dL (7.6-11.0); Carbon Dioxide 21.5 mmol/L (21.0-32.0); Chloride 101 mmol/L (98-108); Estimated Creatinine Clearance 107.04 ml/min (50-250); Glucose 138 mg/dL (70-99); Potassium 3.5 mmol/L (3.3-5.1)
--- NOTE | 2025-05-13 01:21 | CT_ITS ---
PROCEDURE: ABDOMEN/PELVIS WITHOUT CONT 05/13/2025 REASON FOR EXAM: PAIN TECHNIQUE: ABDOMEN/PELVIS WITHOUT CONT Noncontrast technique limits evaluation of the abdominal and pelvic viscera. Coronal and Sagittal reconstruction series were provided. One or more dose reduction techniques were used (e.g., Automated exposure control, adjustment of the mA and/or kV according to patient size, use of iterative reconstruction technique). RADIATION DOSE SUMMARY: CTDlvol: 14 mGy DLP: 736 mGycm COMPARISON: 04/17/2025 FINDINGS: Under aerated lung bases. Normal heart size. Status post cholecystectomy. Diffuse hepatic steatosis. Unremarkable pancreas, spleen, adrenal glands, kidneys. No hydronephrosis or ureteral stone. Normal bladder. Status post hysterectomy. No retroperitoneal or pelvic adenopathy. No free air. Nondistended bowel. Normal appendix. No acute large bowel findings. No acute abdominal wall findings. CT/Abdomen/Pelvis without Cont IMPRESSION: No acute findings Reading Location: [place] [id number]
[2025-05-13 01:44] LABS: Red Blood Cells-Urine 0 SEEN /hpf (0-5)
[2025-05-13 01:46] LABS: Color, Urine Yellow (Yellow); Glucose, Dipstick Normal (Normal); Ketone-Dipstick Negative (Negative); Leukocyte Esterase-Dipstick 25 /ul (Negative); Nitrite-Dipstick Negative (Negative); Occult Blood-Urine 10 /ul (Negative); Protein-Dipstick 30 mg/dl (Negative); Specific Gravity, Urine 1.020 (1.002-1.030); Urine Bilirubin Dipstick Negative (Negative)
[2025-05-13 02:11] VITALS: BP 93/45; PULSE 63; RESP 16; TEMP 36.7; O2SAT 100
[2025-05-13 02:17] LABS: Squamous Epithelial Cells - UA > 100 SEEN /hpf (5-10)
[2025-05-13 02:18] LABS: Calcium Oxalate Crystals Ur 2+ /hpf (<or=2+); Mucous, Urine 2+ /hpf (<or=2+)
[2025-05-13 02:41] VITALS: BP 100/49; PULSE 57; RESP 16; TEMP 36.3; O2SAT 100
== END 2025-05-13 02:46 | disposition home or self-care (01) ==
PROVIDERS: Emergency Provider Surgery; Visit Provider Surgery
DX: R10.9 Unspecified abdominal pain (principal); F31.9 Bipolar disorder, unspecified; M79.7 Fibromyalgia; R11.0 Nausea; R35.0 Frequency of micturition; K21.9 Gastro-esophageal reflux disease without esophagitis; F41.9 Anxiety disorder, unspecified; E78.00 Pure hypercholesterolemia, unspecified; G25.81 Restless legs syndrome; G89.29 Other chronic pain; G43.909 Migraine, unspecified, not intractable, without status migrainosus; F17.290 Nicotine dependence, other tobacco product, uncomplicated; Z87.11 Personal history of peptic ulcer disease; Z90.49 Acquired absence of other specified parts of digestive tract; Z90.710 Acquired absence of both cervix and uterus; Z87.442 Personal history of urinary calculi; Z79.899 Other long term (current) drug therapy
CPT/HCPCS: 74176; 80048; 81001; 84703; 85025; 87086; 87088; 96361; 96374; 96375; 99284; A4216; J2405

== ENCOUNTER 2025-05-19 19:52 | Emergency (ER) | payer MEDICAID, SELFPAY ==
[2025-05-19 19:53] VITALS: BP 158/108; PULSE 79; RESP 14; TEMP 36.3; O2SAT 100; BMI 33.8
[2025-05-19 21:10] LABS: Mucous, Urine 0 SEEN /hpf (<or=2+)
[2025-05-19 21:13] LABS: Color, Urine Yellow (Yellow); Glucose, Dipstick Normal (Normal); Ketone-Dipstick Negative (Negative); Leukocyte Esterase-Dipstick 25 /ul (Negative); Nitrite-Dipstick Negative (Negative); Occult Blood-Urine 10 /ul (Negative); Protein-Dipstick 15 mg/dl (Negative); Specific Gravity, Urine 1.010 (1.002-1.030); Urine Bilirubin Dipstick Negative (Negative)
[2025-05-19 21:15] LABS: Hematocrit 35.0 % (37-47); Hemoglobin 11.8 g/dL (12.0-15.0); Immature Granulocytes Count 0.040 X10^3/uL (0.0-0.0); Mean Corp Hgb Conc 33.7 g/dL (32-36); Mean Corpuscular Volume 89.3 fL (81-99); Mean Platelet Vol. 11.3 fl (6.2-12.0); NRBC Flagged by Analyzer 0 % (0-5); Platelet Count 255 K/mm3 (150-450); RBC Distribution Width CV 14.7 % (11.6-14.6); RBC Distribution Width SD 48.0 fl (35.1-43.9); Red Blood Count 3.92 M/mm3 (4.2-5.4); White Blood Count 7.5 K/mm3 (4.4-11.0)
[2025-05-19 21:35] LABS: Red Blood Cells-Urine 0-5 SEEN /hpf (0-5); Squamous Epithelial Cells - UA 5-10 SEEN /hpf (5-10)
[2025-05-19 21:37] LABS: AST(SGOT) 35 U/L (<=31); Alanine Aminotransfer ALT/SGPT 33 U/L (<=34); Albumin, Serum 4.2 g/dL (3.5-5.0); Alkaline Phosphatase 137 U/L (35-104); Anion Gap 13 (5-15); BUN 5 mg/dL (4-19); BUN/Creat Ratio 6.6 RATIO (10-20); Calcium,Total 9.4 mg/dL (7.6-11.0); Carbon Dioxide 22.4 mmol/L (21.0-32.0); Chloride 105 mmol/L (98-108); Estimated Creatinine Clearance 100.87 ml/min (50-250); Globulin 2.9 g/dL (2.2-4.2); Glucose 131 mg/dL (70-99); Potassium 3.4 mmol/L (3.3-5.1)
[2025-05-19 21:52] VITALS: BP 140/99; PULSE 91; RESP 16; O2SAT 97
--- NOTE | 2025-05-19 22:43 | ED.VIS.GI ---
HPI HPI - GI History of Present Illness Chief Complaint: Abd Pain Informant: patient Narrative Narrative: Patient with left-sided abdominal pain most in the left upper quadrant, been there for 1.5-2 weeks, similar to prior episodes that she has had in the past year or more, she has been here multiple times for this but this time it is worsened today and radiating down toward her pelvis which she does not usually do. She has seen GI for this, she had an abnormal gastric emptying study and then she had a procedure a month or so ago at a hospital in [place] and states she is due for another gastric emptying study at some point after the procedure. She has been nauseated no vomiting. She is having normal bowel movements. She denies any trouble urinating. Pain does not go into her back. PFSH [facility] Medical History Gastroparesis Pancreatitis Right knee pain Avulsion fracture of lateral malleolus of right fibula Left renal stone Smoker Bilateral renal stones Wears glasses Wears dentures Alcohol use Marijuana use History of renal disease Fatty liver High cholesterol Easy bruising Restless legs Syncope Gastric reflux Environmental and seasonal allergies Leg cramps History of edema History of echocardiogram History of stress test Cardiology follow-up encounter Hypertension Peptic ulcer of stomach Migraine Chronic interstitial cystitis Endometriosis Bipolar disorder Anxiety Depression Back pain Conversion disorder History of cervical cancer Kidney stone Fibromyalgia Home Medications ?Medication ?Instructions ?Recorded ?Last Taken ?Type escitalopram oxalate 20 mg tablet 20 mg PO DAILY DEPRESSION 09/22/21 10/27/23 History (Lexapro) tizanidine 4 mg tablet 4 mg PO TID MUSCLE SPASMS 10/28/23 10/27/23 History propranolol 10 mg tablet 10 mg PO DAILY 12/12/23 Unknown History atogepant 60 mg tablet (Qulipta) 60 mg PO QHS 04/21/24 Unknown History rimegepant 75 mg disintegrating 75 mg PO ONCE PRN migraine headache 04/21/24 Unknown History tablet (Nurtec ODT) ondansetron 4 mg disintegrating 4 mg PO Q8H PRN PRN Nausea #10 tabs 07/30/24 Unknown Rx tablet MAGIC MOUTH WASH (BMX) 180 mL 5 - 10 ml PO Q6H PRN PRN gastritis 11/04/24 Unknown Rx suspension #180 mL metoclopramide HCl 5 mg tablet 5 mg PO Q6H PRN nausea and 11/04/24 11/06/24 17:30 Rx (Reglan) vomiting #20 tabs oxycodone-acetaminophen 5 mg-325 1 tab PO Q4H PRN pain 11/06/24 Unknown History mg tablet (Percocet) pantoprazole 40 mg tablet,delayed 40 mg PO BID 11/06/24 Unknown History release promethazine 25 mg tablet 25 mg PO TID PRN PRN 11/06/24 Unknown History nausea/vomiting granisetron HCl 1 mg tablet 1 mg PO Q12H PRN 01/22/25 Unknown History olanzapine 10 mg disintegrating 10 mg PO QHS 01/22/25 Unknown History tablet sucralfate 1 gram tablet 1 g PO BID 01/22/25 Unknown History diphenhydramine HCl 12.5 mg/5 mL 12.5 mg PO PRN 02/03/25 Unknown History oral liquid mirabegron 50 mg tablet,extended 50 mg PO DAILY 02/03/25 Unknown History release 24 hr (Myrbetriq) dicyclomine 20 mg tablet 20 mg PO 4X/DAY PRN PRN abdominal 03/07/25 Unknown History pain [id number] 1 cap PO TID 03/07/25 Unknown History 12,000-38,000-60,000 unit capsule,delayed rel (Creon) sulfamethoxazole 800 1 tab PO BID #14 tabs 04/17/25 Unknown Rx mg-trimethoprim 160 mg tablet (Bactrim DS) Allergy/AdvReac Type Severity Reaction Status Date / Time amitriptyline Allergy MUSCLE Verified 05/19/25 19:56 SPASMS Bleach (Sodium Hypochlorite) Allergy Hives Verified 05/19/25 19:56 ketorolac (From Toradol) Allergy Itching Verified 05/19/25 19:56 nitrofurantoin (From Allergy Anaphylaxis Verified 05/19/25 19:56 Macrodantin) NSAIDS (Non-Steroidal Allergy Other Verified 05/19/25 19:56 Anti-Inflamma oseltamivir (From Tamiflu) Allergy SOB Verified 05/19/25 19:56 doxycycline AdvReac Vomiting Verified 05/19/25 19:56 Family History Mother Hypertension Migraine Grandmother CVA (cerebral vascular accident) Grandfather Diabetes Father Myocardial infarction Surgical History History of cystoscopy S/P laparoscopic surgery History of hysterectomy Hx of cholecystectomy Social History household members: significant other Smoking Status: Current every day smoker tobacco type: e-cigarettes alcohol intake: current details: occasionally substance use type: does not use caffeine: Yes what type of physical activity do you participate in: walking frequency: 1-2 times per week seatbelt use: always do you feel safe at home: Yes additional social history: Single EXAM Physical Exam Const Vital Signs: 05/19/25 19:53 05/19/25 21:52 Temperature 97.3 F L Temperature Source Oral Pulse Rate 79 91 Respiratory Rate 14 16 Blood Pressure 158/108 H 140/99 H Blood Pressure Mean 124 112 Pulse Ox 100 97 Oxygen Delivery Method Room Air Room Air MDM MDM MDM Narrative Medical decision making narrative: Patient presenting with left-sided abdominal/flank pain, nausea but no other acute symptoms. I reviewed the recent ED visits. She has had 5 CT abdomen/pelvis scans this year all of which were negative for anything acute and 5 for last year all of which were negative for anything acute. Many of them show fatty liver disease. She is concerned about that and wants liver enzymes done, I was happy to obtain labs they are unremarkable similar to baseline, and her urinalysis shows no evidence of acute infection on my interpretation of it. In the meantime, since she possibly has been diagnosed with gastroparesis I gave her IV Reglan, a dose of morphine for pain, and reevaluate her. She appears well, she is ambulatory to and from the bathroom without difficulty, and she feels much better although she still states she has some residual left upper quadrant pain and is asking for more pain medication. I do not think she needs any more IV narcotics and I do not think she needs another CT scan. I offered her a dose of Levsin and discharged home and she was comfortable with that. Lab Data Attestation: I reviewed the patient's lab results. Labs: Laboratory Results - last 24 hr 05/19/25 05/19/25 21:02 21:05 WBC 7.5 RBC 3.92 L Hgb 11.8 L Hct 35.0 L MCV 89.3 MCH 30.1 MCHC 33.7 RDW Std Deviation 48.0 H RDW Coeff of Romario 14.7 H Plt Count 255 MPV 11.3 Immature Gran % (Auto) 0.500 Neut % (Auto) 63.6 Lymph % (Auto) 29.2 [place] % (Auto) 5.5 Eos % (Auto) 0.9 Baso % (Auto) 0.3 Absolute Neuts (auto) 4.8 Absolute Lymphs (auto) 2.19 Nucleated RBC % 0 Sodium 141 Potassium 3.4 Chloride 105 Carbon Dioxide 22.4 Anion Gap 13 BUN 5 Creatinine 0.82 Estim Creat Clear Calc 100.87 Est GFR (MDRD) Non-Af 97 BUN/Creatinine Ratio 6.6 L Glucose 131 H Calcium 9.4 Total Bilirubin 0.23 AST 35 H ALT 33 Alkaline Phosphatase 137 H Total Protein 7.1 Albumin 4.2 Globulin 2.9 Albumin/Globulin Ratio 1.5 Urine Color Yellow Urine Clarity Clear Urine pH 6.5 Ur Specific [place] 1.010 Urine Protein 15 H Urine Glucose (UA) Normal Urine Ketones Negative Urine Occult Blood 10 H Urine Nitrite Negative Urine Bilirubin Negative Urine Urobilinogen Normal Ur Leukocyte Esterase 25 H Urine RBC 0-5 SEEN Urine WBC 0-5 SEEN Ur Squamous Epith Cells 5-10 SEEN Urine Bacteria 1+ Urine Mucus 0 SEEN Discharge Plan Triage Chief Complaint: Abd Pain ED Provider: Adelso Jackson Dx/Rx/DC Orders Clinical Impression: Left sided abdominal pain Instructions: Abdominal Pain Prescriptions: No Action propranolol 10 mg tablet 10 mg PO DAILY Patient Comments: TAKE 1 TABLET BY MOUTH ONCE DAILY Nurtec ODT 75 mg tablet,disintegrating 75 mg PO ONCE PRN (Reason: migraine headache) Rx Instructions: as a single dose Qulipta 60 mg tablet 60 mg PO QHS escitalopram oxalate [Lexapro] 20 mg Tablet 20 mg PO DAILY tizanidine 4 mg tablet 4 mg PO TID Patient Comments: PT STATES THAT THEY USUALLY TAKE ALL THREE TABLETS TOGETHER ONCE DAILY AT BEDTIME BECAUSE IT MAKES THEM DROWSY ( OF 10-28-23) metoclopramide HCl [Reglan] 5 mg tablet 5 mg PO Q6H PRN (Reason: nausea and vomiting) Qty: 20 0RF MAGIC MOUTH WASH (BMX) 180 mL suspension 5 - 10 ml PO Q6H PRN PRN (Reason: gastritis) Qty: 180 0RF Rx Instructions: diphenhydramine 12.5 mg/5 mL oral liquid 60 mL; aluminum-mag hydroxide-simethicone 400 mg-400 mg-40 mg/5 mL oral susp 60 mL; Lidocaine Viscous 2 % mucosal solution 60 mL; Per 180 mL pantoprazole 40 mg tablet,delayed release (DR/EC) 40 mg PO BID promethazine 25 mg tablet 25 mg PO TID PRN PRN (Reason: nausea/vomiting) oxycodone-acetaminophen [Percocet] 5-325 mg tablet 1 tab PO Q4H PRN (Reason: pain) Patient Comments: patient needs to get it filled, currently out but has not made it to her pharmacy to pick it up granisetron HCl 1 mg tablet 1 mg PO Q12H PRN sucralfate 1 gram tablet 1 g PO BID olanzapine 10 mg tablet,disintegrating 10 mg PO QHS sulfamethoxazole-trimethoprim [Bactrim DS] 800-160 mg tablet 1 tab PO BID Qty: 14 0RF ondansetron 4 mg tablet,disintegrating 4 mg PO Q8H PRN PRN (Reason: Nausea) Qty: 10 0RF diphenhydramine HCl 12.5 mg/5 mL liquid 12.5 mg PO PRN Patient Comments: [NO ORIGINAL SIG] mirabegron [Myrbetriq] 50 mg tablet extended release 24 hr 50 mg PO DAILY dicyclomine 20 mg tablet 20 mg PO 4X/DAY PRN PRN (Reason: abdominal pain) Creon 12,000-38,000 -60,000 unit capsule,delayed release(DR/EC) 1 cap PO TID Primary Care Provider: Dean Varghese Referrals: Dean Varghese DO [Primary Care Provider] - (Or any of your specialists that deal with this issue) Print Language: Khmer Disposition Disposition: Home, Self Care Discharge Date/Time: 05/19/25 22:52
== END 2025-05-19 22:52 | disposition home or self-care (01) ==
PROVIDERS: Emergency Provider Emergency Medicine; Visit Provider Emergency Medicine
DX: R10.9 Unspecified abdominal pain (principal); I10 Essential (primary) hypertension; E78.00 Pure hypercholesterolemia, unspecified; F17.290 Nicotine dependence, other tobacco product, uncomplicated; K21.9 Gastro-esophageal reflux disease without esophagitis
CPT/HCPCS: 80053; 81001; 85025; 96374; 96375; 99282; A4216

== ENCOUNTER 2025-05-21 14:40 | Emergency (ER) | payer MEDICAID, SELFPAY ==
[2025-05-21 14:43] VITALS: BP 158/110; PULSE 89; RESP 16; TEMP 36.9; O2SAT 100; BMI 34.0
--- NOTE | 2025-05-21 15:03 | ED.VIS.GI ---
HPI HPI - GI History of Present Illness Chief Complaint: Abd Pain Narrative Narrative: 34-year-old female past medical history of gastroparesis, bipolar disorder, presents with right-sided abdominal pain that she has had over the last 2 days. She states that she was seen in the emergency department a few days ago when she was having left-sided abdominal pain and was told that if her pain moves or intensifies that she needs to return to the emergency department. She is being seen by a GI doctor in [facility] at [facility]. She is post to have a gastric emptying study performed at the end of May, next month. She states this pain is different from the pain that she was having 2 days ago because it is more on the right side and that nausea and vomiting started just before she came to the emergency department. She denies any exacerbating or alleviating factors. [facility] Medical History Gastroparesis Pancreatitis Right knee pain Avulsion fracture of lateral malleolus of right fibula Left renal stone Smoker Bilateral renal stones Wears glasses Wears dentures Alcohol use Marijuana use History of renal disease Fatty liver High cholesterol Easy bruising Restless legs Syncope Gastric reflux Environmental and seasonal allergies Leg cramps History of edema History of echocardiogram History of stress test Cardiology follow-up encounter Hypertension Peptic ulcer of stomach Migraine Chronic interstitial cystitis Endometriosis Bipolar disorder Anxiety Depression Back pain Conversion disorder History of cervical cancer Kidney stone Fibromyalgia Home Medications ?Medication ?Instructions ?Recorded ?Last Taken ?Type escitalopram oxalate 20 mg tablet 20 mg PO DAILY DEPRESSION 09/22/21 10/27/23 History (Lexapro) tizanidine 4 mg tablet 4 mg PO TID MUSCLE SPASMS 10/28/23 10/27/23 History propranolol 10 mg tablet 10 mg PO DAILY 12/12/23 Unknown History atogepant 60 mg tablet (Qulipta) 60 mg PO QHS 04/21/24 Unknown History rimegepant 75 mg disintegrating 75 mg PO ONCE PRN migraine headache 04/21/24 Unknown History tablet (Nurtec ODT) ondansetron 4 mg disintegrating 4 mg PO Q8H PRN PRN Nausea #10 tabs 07/30/24 Unknown Rx tablet MAGIC MOUTH WASH (BMX) 180 mL 5 - 10 ml PO Q6H PRN PRN gastritis 11/04/24 Unknown Rx suspension #180 mL metoclopramide HCl 5 mg tablet 5 mg PO Q6H PRN nausea and 11/04/24 11/06/24 17:30 Rx (Reglan) vomiting #20 tabs oxycodone-acetaminophen 5 mg-325 1 tab PO Q4H PRN pain 11/06/24 Unknown History mg tablet (Percocet) pantoprazole 40 mg tablet,delayed 40 mg PO BID 11/06/24 Unknown History release promethazine 25 mg tablet 25 mg PO TID PRN PRN 11/06/24 Unknown History nausea/vomiting granisetron HCl 1 mg tablet 1 mg PO Q12H PRN 01/22/25 Unknown History olanzapine 10 mg disintegrating 10 mg PO QHS 01/22/25 Unknown History tablet sucralfate 1 gram tablet 1 g PO BID 01/22/25 Unknown History diphenhydramine HCl 12.5 mg/5 mL 12.5 mg PO PRN 02/03/25 Unknown History oral liquid mirabegron 50 mg tablet,extended 50 mg PO DAILY 02/03/25 Unknown History release 24 hr (Myrbetriq) dicyclomine 20 mg tablet 20 mg PO 4X/DAY PRN PRN abdominal 03/07/25 Unknown History pain [id number] 1 cap PO TID 03/07/25 Unknown History 12,000-38,000-60,000 unit capsule,delayed rel (Creon) sulfamethoxazole 800 1 tab PO BID #14 tabs 04/17/25 Unknown Rx mg-trimethoprim 160 mg tablet (Bactrim DS) Allergy/AdvReac Type Severity Reaction Status Date / Time amitriptyline Allergy MUSCLE Verified 05/21/25 14:44 SPASMS Bleach (Sodium Hypochlorite) Allergy Hives Verified 05/21/25 14:44 ketorolac (From Toradol) Allergy Itching Verified 05/21/25 14:44 nitrofurantoin (From Allergy Anaphylaxis Verified 05/21/25 14:44 Macrodantin) NSAIDS (Non-Steroidal Allergy Other Verified 05/21/25 14:44 Anti-Inflamma oseltamivir (From Tamiflu) Allergy SOB Verified 05/21/25 14:44 doxycycline AdvReac Vomiting Verified 05/21/25 14:44 Family History Mother Hypertension Migraine Grandmother CVA (cerebral vascular accident) Grandfather Diabetes Father Myocardial infarction Surgical History History of cystoscopy S/P laparoscopic surgery History of hysterectomy Hx of cholecystectomy Social History household members: significant other Smoking Status: Current every day smoker tobacco type: e-cigarettes alcohol intake: current details: occasionally substance use type: does not use caffeine: Yes what type of physical activity do you participate in: walking frequency: 1-2 times per week seatbelt use: always do you feel safe at home: Yes additional social history: Single ROS ROS ED ROS Narrative Review of systems positive for nausea and vomiting, right upper quadrant abdominal pain. No exacerbating or alleviating factors. No fevers or chills. No hematemesis. EXAM Physical Exam Narrative Exam Narrative: Afebrile. Vital signs noted. Nontoxic-appearing. Cardiovascular examination of is a regular rate and rhythm. Lungs are clear to auscultation bilaterally. Abdomen is soft and nontender without guarding or rebound. Positive bowel sounds. Neurological examination nonfocal, nonlateralizing. Const Vital Signs: 05/21/25 14:43 Temperature 98.5 F Temperature Source Oral Pulse Rate 89 Respiratory Rate 16 Blood Pressure 158/110 H Blood Pressure Mean 126 Pulse Ox 100 Oxygen Delivery Method Room Air MDM MDM MDM Narrative Medical decision making narrative: Differential diagnosis includes but not limited to exacerbation of chronic abdominal pain versus pancreatitis versus nonspecific abdominal pain versus bowel obstruction. I have low clinical suspicion for bowel obstruction. I reviewed her prior ED visits. While she was seen 2 days ago, her visit before that the prior week she had a CT scan which was grossly unremarkable. She has had multiple CT scans in the past that do not yield any acute pathology. She had normal laboratory work and last time she received Reglan and morphine, then a dose of Levsin. She specifically asked for pain medication prior to laboratory work. I reviewed her laboratory work from today and she has normal white count of 6.5 with hemoglobin 13.2, hematocrit 38.6, platelet count 263. AST slightly elevated at 44 with ALT of 41 and alk phos 174. When compared to prior laboratories, she has chronically elevated LFTs. Serum is negative. Lipase normal at 25 so I do not think she has a pancreatitis. Urinalysis negative for infection so I do not feel she requires antibiotics. After 1 dose of morphine and Reglan, she is resting comfortably and looking at her phone sitting crosslegged on the cot. She had been given Levsin previously so I was give her a dose of that prior to discharge but she states that that did not work. As she was taking dicyclomine previously but states that she vomited it back up she will be given an intramuscular injection of 20 mg. 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 I do not feel that she requires a repeat CT imaging as she has a nonsurgical abdomen currently. Disposition is discharged home in stable condition. History & Record Review Discussion w/independent historian: Patient Lab Data Attestation: I reviewed the patient's lab results. Labs: Laboratory Results - last 24 hr 05/21/25 05/21/25 14:25 15:30 WBC 6.5 RBC 4.38 Hgb 13.2 Hct 38.6 MCV 88.1 MCH 30.1 MCHC 34.2 RDW Std Deviation 47.0 H RDW Coeff of Romraio 14.6 Plt Count 263 MPV 11.1 Immature Gran % (Auto) 0.500 Neut % (Auto) 65.0 Lymph % (Auto) 29.3 Love % (Auto) 4.8 Eos % (Auto) 0.2 Baso % (Auto) 0.2 Absolute Neuts (auto) 4.3 Absolute Lymphs (auto) 1.91 Nucleated RBC % 0 Sodium 142 Potassium 3.5 Chloride 104 Carbon Dioxide 20.9 L Anion Gap 17 H BUN 5 Creatinine 0.87 Estim Creat Clear Calc 95.30 Est GFR (MDRD) Non-Af 89 BUN/Creatinine Ratio 5.6 L Glucose 115 H Calcium 10.1 Total Bilirubin 0.36 AST 44 H ALT 41 H Alkaline Phosphatase 174 H Total Protein 8.3 Albumin 4.7 Globulin 3.6 Albumin/Globulin Ratio 1.3 Lipase 25 Serum , Qual NEGATIVE Urine Color Straw Urine Clarity Clear Urine pH 7.0 Ur Specific [place] 1.010 Urine Protein Negative Urine Glucose (UA) Normal Urine Ketones Negative Urine Occult Blood Negative Urine Nitrite Negative Urine Bilirubin Negative Urine Urobilinogen Normal Ur Leukocyte Esterase Negative Urine RBC 0 SEEN Urine WBC 0 SEEN Ur Squamous Epith Cells 0 SEEN Urine Bacteria 0 SEEN Urine Mucus 0 SEEN Discharge Plan Triage Chief Complaint: Abd Pain ED Provider: Hayder Hudson Dx/Rx/DC Orders Clinical Impression: Abdominal pain, Nausea and vomiting Instructions: ED Abdominal Pain Unkn Cause Fem, ED Diet Vomiting Diarrhea Prescriptions: No Action propranolol 10 mg tablet 10 mg PO DAILY Patient Comments: TAKE 1 TABLET BY MOUTH ONCE DAILY Nurtec ODT 75 mg tablet,disintegrating 75 mg PO ONCE PRN (Reason: migraine headache) Rx Instructions: as a single dose Qulipta 60 mg tablet 60 mg PO QHS escitalopram oxalate [Lexapro] 20 mg Tablet 20 mg PO DAILY tizanidine 4 mg tablet 4 mg PO TID Patient Comments: PT STATES THAT THEY USUALLY TAKE ALL THREE TABLETS TOGETHER ONCE DAILY AT BEDTIME BECAUSE IT MAKES THEM DROWSY ( OF 10-28-23) metoclopramide HCl [Reglan] 5 mg tablet 5 mg PO Q6H PRN (Reason: nausea and vomiting) Qty: 20 0RF MAGIC MOUTH WASH (BMX) 180 mL suspension 5 - 10 ml PO Q6H PRN PRN (Reason: gastritis) Qty: 180 0RF Rx Instructions: diphenhydramine 12.5 mg/5 mL oral liquid 60 mL; aluminum-mag hydroxide-simethicone 400 mg-400 mg-40 mg/5 mL oral susp 60 mL; Lidocaine Viscous 2 % mucosal solution 60 mL; Per 180 mL pantoprazole 40 mg tablet,delayed release (DR/EC) 40 mg PO BID promethazine 25 mg tablet 25 mg PO TID PRN PRN (Reason: nausea/vomiting) oxycodone-acetaminophen [Percocet] 5-325 mg tablet 1 tab PO Q4H PRN (Reason: pain) Patient Comments: patient needs to get it filled, currently out but has not made it to her pharmacy to pick it up granisetron HCl 1 mg tablet 1 mg PO Q12H PRN sucralfate 1 gram tablet 1 g PO BID olanzapine 10 mg tablet,disintegrating 10 mg PO QHS sulfamethoxazole-trimethoprim [Bactrim DS] 800-160 mg tablet 1 tab PO BID Qty: 14 0RF ondansetron 4 mg tablet,disintegrating 4 mg PO Q8H PRN PRN (Reason: Nausea) Qty: 10 0RF diphenhydramine HCl 12.5 mg/5 mL liquid 12.5 mg PO PRN Patient Comments: [NO ORIGINAL SIG] mirabegron [Myrbetriq] 50 mg tablet extended release 24 hr 50 mg PO DAILY dicyclomine 20 mg tablet 20 mg PO 4X/DAY PRN PRN (Reason: abdominal pain) Creon 12,000-38,000 -60,000 unit capsule,delayed release(DR/EC) 1 cap PO TID Primary Care Provider: Dean Varghese Referrals: Dean Varghese, [Primary Care Provider] - 1-2 Days if not improving Activity Restrictions/Additional Instructions: Follow-up with your bowling alley attendant at the [facility] as soon as possible. Print Language: Greenlandic Disposition Disposition: Home, Self Care
[2025-05-21 15:32] LABS: Mucous, Urine 0 SEEN /hpf (<or=2+); Red Blood Cells-Urine 0 SEEN /hpf (0-5); Squamous Epithelial Cells - UA 0 SEEN /hpf (5-10)
[2025-05-21 15:37] LABS: Color, Urine Straw (Yellow); Glucose, Dipstick Normal (Normal); Ketone-Dipstick Negative (Negative); Leukocyte Esterase-Dipstick Negative /ul (Negative); Nitrite-Dipstick Negative (Negative); Occult Blood-Urine Negative /ul (Negative); Protein-Dipstick Negative (Negative); Specific Gravity, Urine 1.010 (1.002-1.030); Urine Bilirubin Dipstick Negative (Negative)
[2025-05-21 15:42] LABS: Hematocrit 38.6 % (37-47); Hemoglobin 13.2 g/dL (12.0-15.0); Immature Granulocytes Count 0.030 X10^3/uL (0.0-0.0); Mean Corp Hgb Conc 34.2 g/dL (32-36); Mean Corpuscular Volume 88.1 fL (81-99); Mean Platelet Vol. 11.1 fl (6.2-12.0); NRBC Flagged by Analyzer 0 % (0-5); Platelet Count 263 K/mm3 (150-450); RBC Distribution Width CV 14.6 % (11.6-14.6); RBC Distribution Width SD 47.0 fl (35.1-43.9); Red Blood Count 4.38 M/mm3 (4.2-5.4); White Blood Count 6.5 K/mm3 (4.4-11.0)
[2025-05-21 15:50] LABS: Internal QC Validated? YES +Cl - CLEAR BKGD; Record Kit Lot#, Serum Preg. 962302
[2025-05-21] MEDS: 0.9% Normal Saline (1000mL) 1,000 ML 999 ML IV (15:52)
[2025-05-21 15:53] LABS: Pregnancy, Serum, hCG Quali. NEGATIVE Negative
[2025-05-21 16:00] LABS: AST(SGOT) 44 U/L (<=31); Alanine Aminotransfer ALT/SGPT 41 U/L (<=34); Albumin, Serum 4.7 g/dL (3.5-5.0); Alkaline Phosphatase 174 U/L (35-104); Anion Gap 17 (5-15); BUN 5 mg/dL (4-19); BUN/Creat Ratio 5.6 RATIO (10-20); Calcium,Total 10.1 mg/dL (7.6-11.0); Carbon Dioxide 20.9 mmol/L (21.0-32.0); Chloride 104 mmol/L (98-108); Estimated Creatinine Clearance 95.30 ml/min (50-250); Globulin 3.6 g/dL (2.2-4.2); Glucose 115 mg/dL (70-99); Lipase 25 U/L (13-75); Potassium 3.5 mmol/L (3.3-5.1)
[2025-05-21 16:41] VITALS: BP 164/107; PULSE 100; RESP 15; TEMP 36.9; O2SAT 100
[2025-05-21 16:46] VITALS: BP 164/107; PULSE 100; RESP 15; TEMP 36.9; O2SAT 100
--- NOTE | 2025-05-21 16:55 | ED.RN ---
Pt not wanting to wait on IV fluids to finish. 500 ML of NS wasted.
== END 2025-05-21 16:55 | disposition home or self-care (01) ==
PROVIDERS: Emergency Provider Emergency Medicine; Visit Provider Emergency Medicine
DX: R10.9 Unspecified abdominal pain (principal); F31.9 Bipolar disorder, unspecified; E78.00 Pure hypercholesterolemia, unspecified; R11.2 Nausea with vomiting, unspecified; Z79.899 Other long term (current) drug therapy; K21.9 Gastro-esophageal reflux disease without esophagitis; Z90.710 Acquired absence of both cervix and uterus; Z90.49 Acquired absence of other specified parts of digestive tract; I10 Essential (primary) hypertension; F17.290 Nicotine dependence, other tobacco product, uncomplicated
CPT/HCPCS: 80053; 81001; 83690; 84703; 85025; 96361; 96372; 96374; 96375; 99283; A4216

== ENCOUNTER 2025-05-25 18:53 | Emergency (ER) | payer MEDICAID, SELFPAY ==
[2025-05-25 18:54] VITALS: BP 112/86; PULSE 73; RESP 18; TEMP 37.1; O2SAT 100; BMI 33.2
--- NOTE | 2025-05-25 19:13 | EX.ED.DYSGE1 ---
HPI History of Present Illness Chief Complaint: Complaint Narrative Narrative: 34-year-old female presents with left upper abdominal pain/left flank pain that she has had for a few days. Of note, she has been seen in the emergency department multiple times for this. She originally had flank pain for which she was seen and evaluated on the , 12 days ago. She was seen and evaluated again on the , 4 days ago. Then 2 days later she was seen again and stated that the pain had moved to the right and that she was told to return with increasing pain. This is the same pain that she has had previously. She states she has felt feverish but has been taking Tylenol all day. Additionally, she states that 2 days ago she started antibiotics for a UTI when she had gone to [facility]. She states she has left upper abdominal pain and flank pain and that she try to see her primary care provider but was unable to do so. [facility] Medical History Gastroparesis Pancreatitis Right knee pain Avulsion fracture of lateral malleolus of right fibula Left renal stone Smoker Bilateral renal stones Wears glasses Wears dentures Alcohol use Marijuana use History of renal disease Fatty liver High cholesterol Easy bruising Restless legs Syncope Gastric reflux Environmental and seasonal allergies Leg cramps History of edema History of echocardiogram History of stress test Cardiology follow-up encounter Hypertension Peptic ulcer of stomach Migraine Chronic interstitial cystitis Endometriosis Bipolar disorder Anxiety Depression Back pain Conversion disorder History of cervical cancer Kidney stone Fibromyalgia Home Medications ?Medication ?Instructions ?Recorded ?Last Taken ?Type escitalopram oxalate 20 mg tablet 20 mg PO DAILY DEPRESSION 09/22/21 10/27/23 History (Lexapro) tizanidine 4 mg tablet 4 mg PO TID MUSCLE SPASMS 10/28/23 10/27/23 History propranolol 10 mg tablet 10 mg PO DAILY 12/12/23 Unknown History atogepant 60 mg tablet (Qulipta) 60 mg PO QHS 04/21/24 Unknown History rimegepant 75 mg disintegrating 75 mg PO ONCE PRN migraine headache 04/21/24 Unknown History tablet (Nurtec ODT) ondansetron 4 mg disintegrating 4 mg PO Q8H PRN PRN Nausea #10 tabs 07/30/24 Unknown Rx tablet MAGIC MOUTH WASH (BMX) 180 mL 5 - 10 ml PO Q6H PRN PRN gastritis 11/04/24 Unknown Rx suspension #180 mL metoclopramide HCl 5 mg tablet 5 mg PO Q6H PRN nausea and 11/04/24 11/06/24 17:30 Rx (Reglan) vomiting #20 tabs oxycodone-acetaminophen 5 mg-325 1 tab PO Q4H PRN pain 11/06/24 Unknown History mg tablet (Percocet) pantoprazole 40 mg tablet,delayed 40 mg PO BID 11/06/24 Unknown History release promethazine 25 mg tablet 25 mg PO TID PRN PRN 11/06/24 Unknown History nausea/vomiting granisetron HCl 1 mg tablet 1 mg PO Q12H PRN 01/22/25 Unknown History olanzapine 10 mg disintegrating 10 mg PO QHS 01/22/25 Unknown History tablet sucralfate 1 gram tablet 1 g PO BID 01/22/25 Unknown History diphenhydramine HCl 12.5 mg/5 mL 12.5 mg PO PRN 02/03/25 Unknown History oral liquid mirabegron 50 mg tablet,extended 50 mg PO DAILY 02/03/25 Unknown History release 24 hr (Myrbetriq) dicyclomine 20 mg tablet 20 mg PO 4X/DAY PRN PRN abdominal 03/07/25 Unknown History pain rdqgal-lvhknswf-jqqjypy 1 cap PO TID 03/07/25 Unknown History 12,000-38,000-60,000 unit capsule,delayed rel (Creon) sulfamethoxazole 800 1 tab PO BID #14 tabs 04/17/25 Unknown Rx mg-trimethoprim 160 mg tablet (Bactrim DS) Allergy/AdvReac Type Severity Reaction Status Date / Time amitriptyline Allergy MUSCLE Verified 05/25/25 18:55 SPASMS Bleach (Sodium Hypochlorite) Allergy Hives Verified 05/25/25 18:55 ketorolac (From Toradol) Allergy Itching Verified 05/25/25 18:55 nitrofurantoin (From Allergy Anaphylaxis Verified 05/25/25 18:55 Macrodantin) NSAIDS (Non-Steroidal Allergy Other Verified 05/25/25 18:55 Anti-Inflamma oseltamivir (From Tamiflu) Allergy SOB Verified 05/25/25 18:55 doxycycline AdvReac Vomiting Verified 05/25/25 18:55 Family History Mother Hypertension Migraine Grandmother CVA (cerebral vascular accident) Grandfather Diabetes Father Myocardial infarction Surgical History History of cystoscopy S/P laparoscopic surgery History of hysterectomy Hx of cholecystectomy Social History household members: significant other Smoking Status: Current every day smoker tobacco type: e-cigarettes alcohol intake: current details: occasionally substance use type: does not use caffeine: Yes what type of physical activity do you participate in: walking frequency: 1-2 times per week seatbelt use: always do you feel safe at home: Yes additional social history: Single ROS ROS ED ROS Narrative Review of systems positive for nausea, left upper abdominal pain and flank pain. Subjective fever. No exacerbating or alleviating factors. EXAM Physical Exam Narrative Exam Narrative: Afebrile. Vital signs noted. Nontoxic-appearing. Upon entering the room, she is sitting crosslegged on the bed using her cellular telephone. Cardiovascular semination regular rate and rhythm. Lungs clear to auscultation bilaterally. Abdomen is soft and nontender with normal active bowel sounds. No guarding or rebound. No CVA tenderness to percussion. Neurological examination nonfocal nonlateralizing. Const Vital Signs: 05/25/25 18:54 05/25/25 19:22 05/25/25 20:53 Temperature 98.8 F 98 F Temperature Source Oral Oral Pulse Rate 73 71 76 Respiratory Rate 18 16 16 Blood Pressure 112/86 H 154/98 H 154/98 H Blood Pressure Mean 94 116 116 Pulse Ox 100 100 99 Oxygen Delivery Method Room Air Room Air Room Air 05/25/25 20:57 Temperature 98 F Temperature Source Pulse Rate 76 Respiratory Rate 16 Blood Pressure 154/98 H Blood Pressure Mean 116 Pulse Ox 99 Oxygen Delivery Method MDM MDM MDM Narrative Medical decision making narrative: I reviewed the patient's prior records. She has had multiple CTs and evaluations for this. She requested something for nausea and usually requests something for the pain. I do not feel the narcotic pain medications are currently indicated as she has had CT that does not show any obstructing renal stone, and this is the same pain that she has had for days to weeks prior. She was given a tramadol and Zofran and I will check her UA and basic laboratory work. I reviewed her laboratory work, WBC count normal at 8.7, hemoglobin 12.6, hematocrit low at 36.0 which I think is nonspecific, platelet count normal at 264. BMP is remarkable for glucose of 115 with anion gap slightly elevated 18 but she has a CO2 of 18.7 which may be hyperventilation. Urinalysis is negative for infection with negative nitrites, WBC 0-5 and 0 bacteria. I attempted to review any records through [facility], but she had no prior visits that were visible at [facility]. At this point in time, I was informed by the RN that she is requesting to leave. I feel she can be discharged with follow-up to her primary care provider. She was told to continue what ever antibiotic she was taking previously, but when compared to urinalysis on the , she had 0 white cells and 0 bacteria as well. I feel she can be discharged safely home with follow-up. Disposition is discharged home in stable condition. History & Record Review Discussion w/independent historian: Patient Additional record(s) reviewed:: Prior ED visit and Prior labs Lab Data Attestation: I reviewed the patient's lab results. Labs: Laboratory Results - last 24 hr 05/25/25 05/25/25 19:29 19:39 WBC 8.7 RBC 4.11 L Hgb 12.6 Hct 36.0 L MCV 87.6 MCH 30.7 MCHC 35.0 RDW Std Deviation 46.9 H RDW Coeff of Romario 14.8 H Plt Count 264 MPV 11.6 Immature Gran % (Auto) 0.200 Neut % (Auto) 69.0 Lymph % (Auto) 25.8 Rich % (Auto) 4.8 Eos % (Auto) 0.1 Baso % (Auto) 0.1 Absolute Neuts (auto) 6.0 Absolute Lymphs (auto) 2.25 Nucleated RBC % 0 Sodium 139 Potassium 3.6 Chloride 102 Carbon Dioxide 18.7 L Anion Gap 18 H BUN 8 Creatinine 0.78 Estim Creat Clear Calc 105.04 Est GFR (MDRD) Non-Af 102 BUN/Creatinine Ratio 10.1 Glucose 115 H Calcium 9.9 Urine Color Yellow Urine Clarity Clear Urine pH 7.0 Ur Specific [place] 1.010 Urine Protein 15 H Urine Glucose (UA) Normal Urine Ketones Negative Urine Occult Blood Negative Urine Nitrite Negative Urine Bilirubin Negative Urine Urobilinogen Normal Ur Leukocyte Esterase Negative Urine RBC 0-5 SEEN Urine WBC 0-5 SEEN Ur Squamous Epith Cells 0 SEEN Urine Bacteria 0 SEEN Urine Mucus 0 SEEN Discharge Plan Triage Chief Complaint: Complaint ED Provider: Hayder Hudson Dx/Rx/DC Orders Clinical Impression: Left sided abdominal pain, Left flank pain Instructions: ED Abdominal Pain Unkn Cause Fem, ED Flank Pain, Uncertain Cause Prescriptions: No Action propranolol 10 mg tablet 10 mg PO DAILY Patient Comments: TAKE 1 TABLET BY MOUTH ONCE DAILY Nurtec ODT 75 mg tablet,disintegrating 75 mg PO ONCE PRN (Reason: migraine headache) Rx Instructions: as a single dose Qulipta 60 mg tablet 60 mg PO QHS escitalopram oxalate [Lexapro] 20 mg Tablet 20 mg PO DAILY tizanidine 4 mg tablet 4 mg PO TID Patient Comments: PT STATES THAT THEY USUALLY TAKE ALL THREE TABLETS TOGETHER ONCE DAILY AT BEDTIME BECAUSE IT MAKES THEM DROWSY ( OF 10-28-23) metoclopramide HCl [Reglan] 5 mg tablet 5 mg PO Q6H PRN (Reason: nausea and vomiting) Qty: 20 0RF MAGIC MOUTH WASH (BMX) 180 mL suspension 5 - 10 ml PO Q6H PRN PRN (Reason: gastritis) Qty: 180 0RF Rx Instructions: diphenhydramine 12.5 mg/5 mL oral liquid 60 mL; aluminum-mag hydroxide-simethicone 400 mg-400 mg-40 mg/5 mL oral susp 60 mL; Lidocaine Viscous 2 % mucosal solution 60 mL; Per 180 mL pantoprazole 40 mg tablet,delayed release (DR/EC) 40 mg PO BID promethazine 25 mg tablet 25 mg PO TID PRN PRN (Reason: nausea/vomiting) oxycodone-acetaminophen [Percocet] 5-325 mg tablet 1 tab PO Q4H PRN (Reason: pain) Patient Comments: patient needs to get it filled, currently out but has not made it to her pharmacy to pick it up granisetron HCl 1 mg tablet 1 mg PO Q12H PRN sucralfate 1 gram tablet 1 g PO BID olanzapine 10 mg tablet,disintegrating 10 mg PO QHS sulfamethoxazole-trimethoprim [Bactrim DS] 800-160 mg tablet 1 tab PO BID Qty: 14 0RF ondansetron 4 mg tablet,disintegrating 4 mg PO Q8H PRN PRN (Reason: Nausea) Qty: 10 0RF diphenhydramine HCl 12.5 mg/5 mL liquid 12.5 mg PO PRN Patient Comments: [NO ORIGINAL SIG] mirabegron [Myrbetriq] 50 mg tablet extended release 24 hr 50 mg PO DAILY dicyclomine 20 mg tablet 20 mg PO 4X/DAY PRN PRN (Reason: abdominal pain) Creon 12,000-38,000 -60,000 unit capsule,delayed release(DR/EC) 1 cap PO TID Primary Care Provider: Dean Varghese Referrals: Dean Varghese DO [Primary Care Provider] - As soon as possible Print Language: Nigerien Disposition Disposition: Home, Self Care
[2025-05-25 19:22] VITALS: BP 154/98; PULSE 71; RESP 16; TEMP 36.6; O2SAT 100
[2025-05-25 19:36] LABS: Mucous, Urine 0 SEEN /hpf (<or=2+); Squamous Epithelial Cells - UA 0 SEEN /hpf (5-10)
[2025-05-25] MEDS: 0.9% Normal Saline (1000mL) 1,000 ML 999 ML IV (19:48)
[2025-05-25 19:54] LABS: Color, Urine Yellow (Yellow); Glucose, Dipstick Normal (Normal); Ketone-Dipstick Negative (Negative); Leukocyte Esterase-Dipstick Negative /ul (Negative); Nitrite-Dipstick Negative (Negative); Occult Blood-Urine Negative /ul (Negative); Protein-Dipstick 15 mg/dl (Negative); Specific Gravity, Urine 1.010 (1.002-1.030); Urine Bilirubin Dipstick Negative (Negative)
[2025-05-25 20:15] LABS: Red Blood Cells-Urine 0-5 SEEN /hpf (0-5)
[2025-05-25 20:18] LABS: Anion Gap 18 (5-15); BUN 8 mg/dL (4-19); BUN/Creat Ratio 10.1 RATIO (10-20); Calcium,Total 9.9 mg/dL (7.6-11.0); Carbon Dioxide 18.7 mmol/L (21.0-32.0); Chloride 102 mmol/L (98-108); Estimated Creatinine Clearance 105.04 ml/min (50-250); Glucose 115 mg/dL (70-99); Potassium 3.6 mmol/L (3.3-5.1)
[2025-05-25 20:53] VITALS: BP 154/98; PULSE 76; RESP 16; O2SAT 99
[2025-05-25 20:57] VITALS: BP 154/98; PULSE 76; RESP 16; TEMP 36.6; O2SAT 99
[2025-05-25 20:57] LABS: Hematocrit 36.0 % (37-47); Hemoglobin 12.6 g/dL (12.0-15.0); Immature Granulocytes Count 0.020 X10^3/uL (0.0-0.0); Mean Corp Hgb Conc 35.0 g/dL (32-36); Mean Corpuscular Volume 87.6 fL (81-99); Mean Platelet Vol. 11.6 fl (6.2-12.0); NRBC Flagged by Analyzer 0 % (0-5); Platelet Count 264 K/mm3 (150-450); RBC Distribution Width CV 14.8 % (11.6-14.6); RBC Distribution Width SD 46.9 fl (35.1-43.9); Red Blood Count 4.11 M/mm3 (4.2-5.4); White Blood Count 8.7 K/mm3 (4.4-11.0)
== END 2025-05-25 21:12 | disposition home or self-care (01) ==
PROVIDERS: Emergency Provider Emergency Medicine; Visit Provider Emergency Medicine
DX: R10.9 Unspecified abdominal pain (principal); Z90.710 Acquired absence of both cervix and uterus; F17.290 Nicotine dependence, other tobacco product, uncomplicated; E78.00 Pure hypercholesterolemia, unspecified; I10 Essential (primary) hypertension; F32.A Depression, unspecified; Z79.899 Other long term (current) drug therapy; K21.9 Gastro-esophageal reflux disease without esophagitis
CPT/HCPCS: 80048; 81001; 85025; 96361; 96374; 99283; A4216; J2405

== ENCOUNTER 2025-05-28 22:09 | Emergency (ER) | payer MEDICAID, SELFPAY ==
[2025-05-28 22:10] VITALS: BP 143/111; PULSE 63; RESP 18; TEMP 36.8; O2SAT 100; BMI 33.3
--- NOTE | 2025-05-28 22:34 | CT_ITS ---
PROCEDURE: ABDOMEN/PELVIS W IV CONT ONLY 05/28/2025 REASON FOR EXAM: LEFT-SIDED ABDOMINAL PAIN TECHNIQUE: ABDOMEN/PELVIS W IV CONT ONLY Coronal and Sagittal reconstruction series were provided. CONTRAST: Isovue 370 VOLUME: 90 mL One or more dose reduction techniques were used (e.g., Automated exposure control, adjustment of the mA and/or kV according to patient size, use of iterative reconstruction technique. RADIATION DOSE SUMMARY: CTDlvol: 33 mGy DLP: 1228 mGycm COMPARISON: 05/13/2025 FINDINGS: Under aerated lung bases. Normal heart size. Diffuse hepatic steatosis. Status post cholecystectomy. Unremarkable pancreas, spleen, adrenal glands, kidneys. No hydronephrosis. Normal bladder. Status post hysterectomy. No retroperitoneal or pelvic adenopathy. No free air. Nonobstructed bowel. Normal appendix. No acute large bowel findings. No acute abdominal wall findings. CT/Abdomen/Pelvis W IV Cont ONLY IMPRESSION: No acute findings. Reading Location: [place] [id number]
--- NOTE | 2025-05-28 22:34 | CT_ITS ---
PROCEDURE: ABDOMEN/PELVIS W IV CONT ONLY 05/28/2025 REASON FOR EXAM: LEFT-SIDED ABDOMINAL PAIN TECHNIQUE: ABDOMEN/PELVIS W IV CONT ONLY Coronal and Sagittal reconstruction series were provided. CONTRAST: Isovue 370 VOLUME: 90 mL One or more dose reduction techniques were used (e.g., Automated exposure control, adjustment of the mA and/or kV according to patient size, use of iterative reconstruction technique. RADIATION DOSE SUMMARY: CTDlvol: 33 mGy DLP: 1228 mGycm COMPARISON: 05/13/2025 FINDINGS: Under aerated lung bases. Normal heart size. Diffuse hepatic steatosis. Status post cholecystectomy. Unremarkable pancreas, spleen, adrenal glands, kidneys. No hydronephrosis. Normal bladder. Status post hysterectomy. No retroperitoneal or pelvic adenopathy. No free air. Nonobstructed bowel. Normal appendix. No acute large bowel findings. No acute abdominal wall findings. CT/Abdomen/Pelvis W IV Cont ONLY IMPRESSION: No acute findings. Reading Location: [place] [address]
--- NOTE | 2025-05-28 22:41 | ED.VIS.GI ---
HPI HPI - GI History of Present Illness Chief Complaint: Flank Pain Narrative Narrative: 34-year-old female presents with left flank pain that she has been having for weeks. This is her third visit to the emergency department in the last week. She states she went to [facility] today, stated she also had a yeast infection and was told to start Monistat and Pyridium as she is already taking amoxicillin for UTI. She states that we checked her urine and did not do anything else. This is the same pain that she has been having for weeks. No exacerbating or alleviating factors. She presented time to the emergency department stating she is having nausea, sometimes she vomits, and the same pain that she has been having for weeks. [facility] Medical History Gastroparesis Pancreatitis Right knee pain Avulsion fracture of lateral malleolus of right fibula Left renal stone Smoker Bilateral renal stones Wears glasses Wears dentures Alcohol use Marijuana use History of renal disease Fatty liver High cholesterol Easy bruising Restless legs Syncope Gastric reflux Environmental and seasonal allergies Leg cramps History of edema History of echocardiogram History of stress test Cardiology follow-up encounter Hypertension Peptic ulcer of stomach Migraine Chronic interstitial cystitis Endometriosis Bipolar disorder Anxiety Depression Back pain Conversion disorder History of cervical cancer Kidney stone Fibromyalgia Home Medications ?Medication ?Instructions ?Recorded ?Last Taken ?Type escitalopram oxalate 20 mg tablet 20 mg PO DAILY DEPRESSION 09/22/21 10/27/23 History (Lexapro) tizanidine 4 mg tablet 4 mg PO TID MUSCLE SPASMS 10/28/23 10/27/23 History propranolol 10 mg tablet 10 mg PO DAILY 12/12/23 Unknown History atogepant 60 mg tablet (Qulipta) 60 mg PO QHS 04/21/24 Unknown History rimegepant 75 mg disintegrating 75 mg PO ONCE PRN migraine headache 04/21/24 Unknown History tablet (Nurtec ODT) ondansetron 4 mg disintegrating 4 mg PO Q8H PRN PRN Nausea #10 tabs 07/30/24 Unknown Rx tablet MAGIC MOUTH WASH (BMX) 180 mL 5 - 10 ml PO Q6H PRN PRN gastritis 11/04/24 Unknown Rx suspension #180 mL metoclopramide HCl 5 mg tablet 5 mg PO Q6H PRN nausea and 01/10/25 01/12/25 17:30 Rx (Reglan) vomiting #20 tabs oxycodone-acetaminophen 5 mg-325 1 tab PO Q4H PRN pain 11/06/24 Unknown History mg tablet (Percocet) pantoprazole 40 mg tablet,delayed 40 mg PO BID 11/06/24 Unknown History release promethazine 25 mg tablet 25 mg PO TID PRN PRN 11/06/24 Unknown History nausea/vomiting granisetron HCl 1 mg tablet 1 mg PO Q12H PRN 01/22/25 Unknown History olanzapine 10 mg disintegrating 10 mg PO QHS 01/22/25 Unknown History tablet sucralfate 1 gram tablet 1 g PO BID 01/22/25 Unknown History diphenhydramine HCl 12.5 mg/5 mL 12.5 mg PO PRN 02/03/25 Unknown History oral liquid mirabegron 50 mg tablet,extended 50 mg PO DAILY 02/03/25 Unknown History release 24 hr (Myrbetriq) dicyclomine 20 mg tablet 20 mg PO 4X/DAY PRN PRN abdominal 03/07/25 Unknown History pain [id number] 1 cap PO TID 03/07/25 Unknown History 12,000-38,000-60,000 unit capsule,delayed rel (Creon) sulfamethoxazole 800 1 tab PO BID #14 tabs 04/17/25 Unknown Rx mg-trimethoprim 160 mg tablet (Bactrim DS) Allergy/AdvReac Type Severity Reaction Status Date / Time amitriptyline Allergy MUSCLE Verified 05/28/25 22:12 SPASMS Bleach (Sodium Hypochlorite) Allergy Hives Verified 05/28/25 22:12 ketorolac (From Toradol) Allergy Itching Verified 05/28/25 22:12 nitrofurantoin (From Allergy Anaphylaxis Verified 05/28/25 22:12 Macrodantin) NSAIDS (Non-Steroidal Allergy Other Verified 05/28/25 22:12 Anti-Inflamma oseltamivir (From Tamiflu) Allergy SOB Verified 05/28/25 22:12 doxycycline AdvReac Vomiting Verified 05/28/25 22:12 Family History Mother Hypertension Migraine Grandmother CVA (cerebral vascular accident) Grandfather Diabetes Father Myocardial infarction Surgical History History of cystoscopy S/P laparoscopic surgery History of hysterectomy Hx of cholecystectomy Social History household members: significant other Smoking Status: Current every day smoker tobacco type: e-cigarettes alcohol intake: current details: occasionally substance use type: does not use caffeine: Yes what type of physical activity do you participate in: walking frequency: 1-2 times per week seatbelt use: always do you feel safe at home: Yes additional social history: Single ROS ROS ED ROS Narrative Constitutional: No fever, no chills. Cardiovascular: No chest pain. No palpitations. No pedal edema. Abdominal: Positive left flank pain abdominal pain. Positive nausea. No problems with bowel movements. Genitourinary: Positive dysuria. No hematuria. EXAM Physical Exam Narrative Exam Narrative: Afebrile. Vital signs noted. Nontoxic-appearing. Cardiovascular examination regular rate and rhythm. Lungs are clear to auscultation bilaterally. Abdomen is soft and nontender without guarding or rebound. Positive bowel sounds. Neurological examination is nonfocal, nonlateralizing. Ambulatory in ED. Flat affect. Const Vital Signs: 05/28/25 22:10 Temperature 98.2 F Temperature Source Oral Pulse Rate 63 Respiratory Rate 18 Blood Pressure 143/111 H Blood Pressure Mean 121 Pulse Ox 100 Oxygen Delivery Method Room Air MDM MDM MDM Narrative Medical decision making narrative: I reviewed the patient's prior ED visits. Additionally, I have seen her on her last 2 visits here. She has paperwork that she was seen in [place] emergency department today and told to start Monistat along with Pyridium. She states that they have not filled the prescription at her pharmacy for Monistat. She was seen in the emergency department on May 13, , , now May 28. This is the same pain that she has been having. She states she is worried about her kidneys. I reviewed her laboratory work from her last visit on the , 4 days ago and she had a normal BUN and creatinine. She has allergies to ketorolac and NSAIDs. She frequently requests if something can be done about her nausea and pain. She will be given Zofran, but I do not feel that she requires narcotic pain medication currently. I discussed with her the utility of a CT scan again as she had one 2 weeks ago that was normal. That was done without contrast so CT of the abdomen and pelvis will be obtained with contrast. I will obtain baseline laboratories including CBC, CMP, lipase, and serum test. She already had a urinalysis today so I do not feel that she needs another one, in review of her last urinalysis 4 days ago was negative. Reviewed her laboratory work today. She has a normal white count of 7.6. Hemoglobin is normal at 12.8 with hematocrit normal at 37.3. Platelet count is normal at 273. BMP is grossly unremarkable with normal sodium, potassium, chloride, BUN, and creatinine. Glucose 84. Lipase normal at 47 so I doubt pancreatitis. Serum test is once again negative. The CT of the abdomen pelvis with IV contrast is currently pending. It was signed out to the overnight physician Dr. Felton Gregory. Patient was told that should her CT scan be negative, she will be discharged to follow-up with her primary care provider. She has an appointment scheduled 2 days from now on Thursday. Any positive findings will be addressed by Dr. Gregory. Disposition is pending but anticipate discharge. She is in stable condition. History & Record Review Discussion w/independent historian: Patient Additional record(s) reviewed:: Prior ED visit (Seen by myself the last 2 times.) and Prior labs Lab Data Attestation: I reviewed the patient's lab results. Labs: Laboratory Results - last 24 hr 05/28/25 22:25 WBC 7.6 RBC 4.21 Hgb 12.8 Hct 37.3 MCV 88.6 MCH 30.4 MCHC 34.3 RDW Std Deviation 48.2 H RDW Coeff of Romario 15.0 H Plt Count 273 MPV 10.9 Immature Gran % (Auto) 0.400 Neut % (Auto) 57.5 Lymph % (Auto) 35.9 [place] % (Auto) 5.8 Eos % (Auto) 0.3 Baso % (Auto) 0.1 Absolute Neuts (auto) 4.4 Absolute Lymphs (auto) 2.72 Nucleated RBC % 0 Sodium 142 Potassium 3.4 Chloride 104 Carbon Dioxide 22.2 Anion Gap 16 H BUN 5 Creatinine 0.81 Estim Creat Clear Calc 101.32 Est GFR (MDRD) Non-Af 98 BUN/Creatinine Ratio 6.6 L Glucose 84 Calcium 9.8 Lipase 47 Serum , Qual NEGATIVE Discharge Plan Triage Chief Complaint: Flank Pain ED Provider: Hayder Hudson Dx/Rx/DC Orders Clinical Impression: Chronic abdominal pain, Nausea, Flank pain Instructions: ED Abdominal Pain Unkn Cause Fem, ED Pain Management: Chronic Prescriptions: No Action propranolol 10 mg tablet 10 mg PO DAILY Patient Comments: TAKE 1 TABLET BY MOUTH ONCE DAILY Nurtec ODT 75 mg tablet,disintegrating 75 mg PO ONCE PRN (Reason: migraine headache) Rx Instructions: as a single dose Qulipta 60 mg tablet 60 mg PO QHS escitalopram oxalate [Lexapro] 20 mg Tablet 20 mg PO DAILY tizanidine 4 mg tablet 4 mg PO TID Patient Comments: PT STATES THAT THEY USUALLY TAKE ALL THREE TABLETS TOGETHER ONCE DAILY AT BEDTIME BECAUSE IT MAKES THEM DROWSY ( OF 10-28-23) metoclopramide HCl [Reglan] 5 mg tablet 5 mg PO Q6H PRN (Reason: nausea and vomiting) Qty: 20 0RF MAGIC MOUTH WASH (BMX) 180 mL suspension 5 - 10 ml PO Q6H PRN PRN (Reason: gastritis) Qty: 180 0RF Rx Instructions: diphenhydramine 12.5 mg/5 mL oral liquid 60 mL; aluminum-mag hydroxide-simethicone 400 mg-400 mg-40 mg/5 mL oral susp 60 mL; Lidocaine Viscous 2 % mucosal solution 60 mL; Per 180 mL pantoprazole 40 mg tablet,delayed release (DR/EC) 40 mg PO BID promethazine 25 mg tablet 25 mg PO TID PRN PRN (Reason: nausea/vomiting) oxycodone-acetaminophen [Percocet] 5-325 mg tablet 1 tab PO Q4H PRN (Reason: pain) Patient Comments: patient needs to get it filled, currently out but has not made it to her pharmacy to pick it up granisetron HCl 1 mg tablet 1 mg PO Q12H PRN sucralfate 1 gram tablet 1 g PO BID olanzapine 10 mg tablet,disintegrating 10 mg PO QHS sulfamethoxazole-trimethoprim [Bactrim DS] 800-160 mg tablet 1 tab PO BID Qty: 14 0RF ondansetron 4 mg tablet,disintegrating 4 mg PO Q8H PRN PRN (Reason: Nausea) Qty: 10 0RF diphenhydramine HCl 12.5 mg/5 mL liquid 12.5 mg PO PRN Patient Comments: [NO ORIGINAL SIG] mirabegron [Myrbetriq] 50 mg tablet extended release 24 hr 50 mg PO DAILY dicyclomine 20 mg tablet 20 mg PO 4X/DAY PRN PRN (Reason: abdominal pain) Creon 12,000-38,000 -60,000 unit capsule,delayed release(DR/EC) 1 cap PO TID Primary Care Provider: Dean Varghese Referrals: Dean Varghese DO [Primary Care Provider] - 1-2 Days if not improving Activity Restrictions/Additional Instructions: Follow-up with your primary care provider as scheduled. Print Language: Chinese Disposition Disposition: Home, Self Care
[2025-05-28 22:44] LABS: Hematocrit 37.3 % (37-47); Hemoglobin 12.8 g/dL (12.0-15.0); Immature Granulocytes Count 0.030 X10^3/uL (0.0-0.0); Mean Corp Hgb Conc 34.3 g/dL (32-36); Mean Corpuscular Volume 88.6 fL (81-99); Mean Platelet Vol. 10.9 fl (6.2-12.0); NRBC Flagged by Analyzer 0 % (0-5); Platelet Count 273 K/mm3 (150-450); RBC Distribution Width CV 15.0 % (11.6-14.6); RBC Distribution Width SD 48.2 fl (35.1-43.9); Red Blood Count 4.21 M/mm3 (4.2-5.4); White Blood Count 7.6 K/mm3 (4.4-11.0)
[2025-05-28 22:54] LABS: Internal QC Validated? YES +Cl - CLEAR BKGD; Pregnancy, Serum, hCG Quali. NEGATIVE Negative; Record Kit Lot#, Serum Preg. 000962302
[2025-05-28 23:02] LABS: Anion Gap 16 (5-15); BUN 5 mg/dL (4-19); BUN/Creat Ratio 6.6 RATIO (10-20); Calcium,Total 9.8 mg/dL (7.6-11.0); Carbon Dioxide 22.2 mmol/L (21.0-32.0); Chloride 104 mmol/L (98-108); Estimated Creatinine Clearance 101.32 ml/min (50-250); Glucose 84 mg/dL (70-99); Lipase 47 U/L (13-75); Potassium 3.4 mmol/L (3.3-5.1)
[2025-05-29 00:10] VITALS: BP 146/91; PULSE 58; RESP 18; O2SAT 100
[2025-05-29 00:46] VITALS: BP 159/96; PULSE 60; RESP 16; TEMP 37; O2SAT 100
== END 2025-05-29 00:48 | disposition home or self-care (01) ==
PROVIDERS: Emergency Provider Emergency Medicine; Visit Provider Emergency Medicine
DX: R10.9 Unspecified abdominal pain (principal); F31.9 Bipolar disorder, unspecified; I10 Essential (primary) hypertension; E78.00 Pure hypercholesterolemia, unspecified; R11.0 Nausea; Z90.710 Acquired absence of both cervix and uterus; Z79.899 Other long term (current) drug therapy; Z85.41 Personal history of malignant neoplasm of cervix uteri; Z90.49 Acquired absence of other specified parts of digestive tract; F17.290 Nicotine dependence, other tobacco product, uncomplicated; G89.29 Other chronic pain
CPT/HCPCS: 74177; 80048; 83690; 84703; 85025; 96374; 99283; Q9967; A4216; J2405

== ENCOUNTER 2025-07-13 01:48 | Emergency (ER) | payer MEDICAID, SELFPAY ==
[2025-07-13 01:49] VITALS: BP 124/77; PULSE 50; RESP 16; TEMP 36.8; O2SAT 98; BMI 32.5
--- NOTE | 2025-07-13 02:18 | EX.ED.DYSGE1 ---
HPI History of Present Illness Chief Complaint: Abd Pain Informant: patient Narrative Narrative: Patient is a 35-year-old female with past medical history of bipolar disorder anxiety and depression as well as gastroparesis and previous pancreatitis. She states that she has been having increased generalized abdominal pain with bouts of nausea and vomiting. She states that her stomach almost always hurts but that she feels it is more intense and has concern that this could be potential pancreatitis. She denies any alcohol use. She states that there has been no fevers or chills but she does admit to multiple people at work being sick with stomach issues. With patient having worsening of her chronic symptoms and concern for return of potential pancreatitis she presents for evaluation [facility] Medical History Gastroparesis Pancreatitis Right knee pain Avulsion fracture of lateral malleolus of right fibula Left renal stone Smoker Bilateral renal stones Wears glasses Wears dentures Alcohol use Marijuana use History of renal disease Fatty liver High cholesterol Easy bruising Restless legs Syncope Gastric reflux Environmental and seasonal allergies Leg cramps History of edema History of echocardiogram History of stress test Cardiology follow-up encounter Hypertension Peptic ulcer of stomach Migraine Chronic interstitial cystitis Endometriosis Bipolar disorder Anxiety Depression Back pain Conversion disorder History of cervical cancer Kidney stone Fibromyalgia Home Medications ?Medication ?Instructions ?Recorded ?Last Taken ?Type escitalopram oxalate 20 mg tablet 20 mg PO DAILY DEPRESSION 09/22/21 10/27/23 History (Lexapro) tizanidine 4 mg tablet 4 mg PO TID MUSCLE SPASMS 10/28/23 10/27/23 History propranolol 10 mg tablet 10 mg PO DAILY 12/12/23 Unknown History atogepant 60 mg tablet (Qulipta) 60 mg PO QHS 04/21/24 Unknown History rimegepant 75 mg disintegrating 75 mg PO ONCE PRN migraine headache 04/21/24 Unknown History tablet (Nurtec ODT) ondansetron 4 mg disintegrating 4 mg PO Q8H PRN PRN Nausea #10 tabs 07/30/24 Unknown Rx tablet MAGIC MOUTH WASH (BMX) 180 mL 5 - 10 ml PO Q6H PRN PRN gastritis 11/04/24 Unknown Rx suspension #180 mL metoclopramide HCl 5 mg tablet 5 mg PO Q6H PRN nausea and 11/04/24 11/06/24 17:30 Rx (Reglan) vomiting #20 tabs oxycodone-acetaminophen 5 mg-325 1 tab PO Q4H PRN pain 11/06/24 Unknown History mg tablet (Percocet) pantoprazole 40 mg tablet,delayed 40 mg PO BID 11/06/24 Unknown History release promethazine 25 mg tablet 25 mg PO TID PRN PRN 11/06/24 Unknown History nausea/vomiting granisetron HCl 1 mg tablet 1 mg PO Q12H PRN 01/22/25 Unknown History olanzapine 10 mg disintegrating 10 mg PO QHS 01/22/25 Unknown History tablet sucralfate 1 gram tablet 1 g PO BID 01/22/25 Unknown History diphenhydramine HCl 12.5 mg/5 mL 12.5 mg PO PRN 02/03/25 Unknown History oral liquid mirabegron 50 mg tablet,extended 50 mg PO DAILY 02/03/25 Unknown History release 24 hr (Myrbetriq) dicyclomine 20 mg tablet 20 mg PO 4X/DAY PRN PRN abdominal 03/07/25 Unknown History pain [id number] 1 cap PO TID 03/07/25 Unknown History 12,000-38,000-60,000 unit capsule,delayed rel (Creon) amlodipine 2.5 mg tablet 2.5 mg PO DAILY 07/13/25 Unknown History Allergy/AdvReac Type Severity Reaction Status Date / Time amitriptyline Allergy MUSCLE Verified 07/13/25 01:49 SPASMS Bleach (Sodium Hypochlorite) Allergy Hives Verified 07/13/25 01:49 ketorolac (From Toradol) Allergy Itching Verified 07/13/25 01:49 nitrofurantoin (From Allergy Anaphylaxis Verified 07/13/25 01:49 Macrodantin) NSAIDS (Non-Steroidal Allergy Other Verified 07/13/25 01:49 Anti-Inflamma oseltamivir (From Tamiflu) Allergy SOB Verified 07/13/25 01:49 doxycycline AdvReac Vomiting Verified 07/13/25 01:49 Family History Mother Hypertension Migraine Grandmother CVA (cerebral vascular accident) Grandfather Diabetes Father Myocardial infarction Surgical History History of cystoscopy S/P laparoscopic surgery History of hysterectomy Hx of cholecystectomy Social History household members: significant other Smoking Status: Current every day smoker tobacco type: e-cigarettes alcohol intake: current details: occasionally substance use type: does not use caffeine: Yes what type of physical activity do you participate in: walking frequency: 1-2 times per week seatbelt use: always do you feel safe at home: Yes additional social history: Single ROS ROS ED Constitutional Constitutional ED: Denies chills or fever(s) ENT ENT ED: Denies sore throat Cardiovascular Cardiovascular: Denies chest pain Respiratory/Chest Respiratory/Chest: Denies cough or dyspnea Gastrointestinal Gastrointestinal: Reports abdominal pain, nausea and vomiting; Denies diarrhea Genitourinary Genitourinary ED: Reports other Details: Patient denies concern for ; Denies dysuria or hematuria Musculoskeletal Musculoskeletal: Denies back pain or myalgias Integumentary Denies rash Neurologic Neurologic: Denies headache(s) Hematologic/Lymphatic Hematologic/Lymphatic: Denies easy bleeding or easy bruising EXAM Physical Exam Const Vital Signs: 07/13/25 01:49 Temperature 98.3 F Temperature Source Oral Pulse Rate 50 L Respiratory Rate 16 Blood Pressure 124/77 H Blood Pressure Mean 92 Pulse Ox 98 Oxygen Delivery Method Room Air Positive well nourished, well developed and obese General Appearance ED: well developed; Negative for pallor Nutritional Appearance: obese HEENT HEENT Narrative: Normocephalic atraumatic No tongue or lip swelling no oral lesions no airway edema or compromise; no secondary findings in the posterior pharynx to suggest infection Eyes PERRL and EOMs intact bilaterally General Eye ED: Negative for scleral icterus Neck supple Neck Narrative: No nuchal rigidity or meningeal signs Resp normal respiratory effort and clear to auscultation bilaterally Cardio regular rhythm Rate: bradycardia and other Other Details: Bradycardic rate with regular Radial and carotid pulses are equal and symmetric GI non-distended and no masses GI Narrative: Abdomen is soft and nondistended with hypoactive bowel sounds. There is mild diffuse pain on palpation without voluntary guarding or rigidity or pulsatile mass. No peritoneal signs Auscultation: hypoactive bowel sounds Palpation: soft Extremity normal to inspection Neuro oriented x3, CN's II-XII intact bilaterally and no sensory deficits noted Sensorium / Orientation: alert Motor Exam: strength 5/5 throughout Psych Psych Narrative: Patient has a depressed/flat affect Mood & Affect: depressed Skin no rashes or lesions noted General Skin Exam: Negative for jaundice or pallor MDM MDM Lab Data Labs: Laboratory Results - last 24 hr 07/13/25 02:16 WBC 8.0 RBC 3.91 L Hgb 12.3 Hct 35.6 L MCV 91.0 MCH 31.5 MCHC 34.6 RDW Std Deviation 43.2 RDW Coeff of Romario 13.2 Plt Count 240 MPV 11.5 Immature Gran % (Auto) 0.300 Neut % (Auto) 62.3 Lymph % (Auto) 31.3 [place] % (Auto) 5.2 Eos % (Auto) 0.6 Baso % (Auto) 0.3 Absolute Neuts (auto) 5.0 Absolute Lymphs (auto) 2.49 Nucleated RBC % 0 Sodium 140 Potassium 3.6 Chloride 108 Carbon Dioxide 19.6 L Anion Gap 13 BUN 6 Creatinine 0.67 L Estim Creat Clear Calc 119.96 Est GFR (MDRD) Non-Af 117 BUN/Creatinine Ratio 8.6 L Glucose 158 H Calcium 9.2 Total Bilirubin 0.25 Direct Bilirubin 0.16 AST 26 ALT 17 Alkaline Phosphatase 122 H Total Protein 6.7 Albumin 3.9 Globulin 2.9 Lipase 30 Serum , Qual NEGATIVE Discharge Plan Triage Chief Complaint: Abd Pain ED Provider: Lanre Puentes Dx/Rx/DC Orders Clinical Impression: Nonspecific abdominal pain, Nausea and vomiting, Hypertension, Bipolar disorder, Anxiety Instructions: Abdominal Pain, ED Vomiting (Adult) Prescriptions: No Action propranolol 10 mg tablet 10 mg PO DAILY Patient Comments: TAKE 1 TABLET BY MOUTH ONCE DAILY Nurtec ODT 75 mg tablet,disintegrating 75 mg PO ONCE PRN (Reason: migraine headache) Rx Instructions: as a single dose Qulipta 60 mg tablet 60 mg PO QHS escitalopram oxalate [Lexapro] 20 mg Tablet 20 mg PO DAILY tizanidine 4 mg tablet 4 mg PO TID Patient Comments: PT STATES THAT THEY USUALLY TAKE ALL THREE TABLETS TOGETHER ONCE DAILY AT BEDTIME BECAUSE IT MAKES THEM DROWSY ( OF 10-28-23) metoclopramide HCl [Reglan] 5 mg tablet 5 mg PO Q6H PRN (Reason: nausea and vomiting) Qty: 20 0RF MAGIC MOUTH WASH (BMX) 180 mL suspension 5 - 10 ml PO Q6H PRN PRN (Reason: gastritis) Qty: 180 0RF Rx Instructions: diphenhydramine 12.5 mg/5 mL oral liquid 60 mL; aluminum-mag hydroxide-simethicone 400 mg-400 mg-40 mg/5 mL oral susp 60 mL; Lidocaine Viscous 2 % mucosal solution 60 mL; Per 180 mL pantoprazole 40 mg tablet,delayed release (DR/EC) 40 mg PO BID promethazine 25 mg tablet 25 mg PO TID PRN PRN (Reason: nausea/vomiting) oxycodone-acetaminophen [Percocet] 5-325 mg tablet 1 tab PO Q4H PRN (Reason: pain) Patient Comments: patient needs to get it filled, currently out but has not made it to her pharmacy to pick it up granisetron HCl 1 mg tablet 1 mg PO Q12H PRN sucralfate 1 gram tablet 1 g PO BID olanzapine 10 mg tablet,disintegrating 10 mg PO QHS amlodipine 2.5 mg tablet 2.5 mg PO DAILY ondansetron 4 mg tablet,disintegrating 4 mg PO Q8H PRN PRN (Reason: Nausea) Qty: 10 0RF diphenhydramine HCl 12.5 mg/5 mL liquid 12.5 mg PO PRN Patient Comments: [NO ORIGINAL SIG] mirabegron [Myrbetriq] 50 mg tablet extended release 24 hr 50 mg PO DAILY dicyclomine 20 mg tablet 20 mg PO 4X/DAY PRN PRN (Reason: abdominal pain) Creon 12,000-38,000 -60,000 unit capsule,delayed release(DR/EC) 1 cap PO TID Primary Care Provider: Dean Varghese Referrals: Dean Varghese DO [Primary Care Provider, Medical] Activity Restrictions/Additional Instructions: Your labs did not show any changes to suggest infection or acute pancreatitis. Please continue all of your home medications as directed by your doctor and return to the ER should you have any further concerns. Print Language: Monegasque Disposition Disposition: Home, Self Care
[2025-07-13] MEDS: 0.9% Normal Saline (1000mL) 1,000 ML 999 ML IV (02:21)
[2025-07-13 02:23] LABS: Hematocrit 35.6 % (37-47); Hemoglobin 12.3 g/dL (12.0-15.0); Immature Granulocytes Count 0.020 X10^3/uL (0.0-0.0); Mean Corp Hgb Conc 34.6 g/dL (32-36); Mean Corpuscular Volume 91.0 fL (81-99); Mean Platelet Vol. 11.5 fl (6.2-12.0); NRBC Flagged by Analyzer 0 % (0-5); Platelet Count 240 K/mm3 (150-450); RBC Distribution Width CV 13.2 % (11.6-14.6); RBC Distribution Width SD 43.2 fl (35.1-43.9); Red Blood Count 3.91 M/mm3 (4.2-5.4); White Blood Count 8.0 K/mm3 (4.4-11.0)
[2025-07-13 02:33] LABS: Internal QC Validated? YES +Cl - CLEAR BKGD; Pregnancy, Serum, hCG Quali. NEGATIVE Negative; Record Kit Lot#, Serum Preg. 0000964736
[2025-07-13 02:48] LABS: AST(SGOT) 26 U/L (<=31); Alanine Aminotransfer ALT/SGPT 17 U/L (<=34); Albumin, Serum 3.9 g/dL (3.5-5.0); Alkaline Phosphatase 122 U/L (35-104); Anion Gap 13 (5-15); BUN 6 mg/dL (4-19); BUN/Creat Ratio 8.6 RATIO (10-20); Bilirubin, Direct 0.16 mg/dL (0.00-0.30); Calcium,Total 9.2 mg/dL (7.6-11.0); Carbon Dioxide 19.6 mmol/L (21.0-32.0); Chloride 108 mmol/L (98-108); Estimated Creatinine Clearance 119.96 ml/min (50-250); Globulin 2.9 g/dL (2.2-4.2); Glucose 158 mg/dL (70-99); Lipase 30 U/L (13-75); Potassium 3.6 mmol/L (3.3-5.1)
[2025-07-13 03:20] VITALS: BP 130/68; PULSE 47; RESP 16; TEMP 36.8; O2SAT 95
== END 2025-07-13 04:16 | disposition home or self-care (01) ==
PROVIDERS: Emergency Provider Emergency Medicine; Visit Provider Emergency Medicine
DX: R10.9 Unspecified abdominal pain (principal); F31.9 Bipolar disorder, unspecified; I10 Essential (primary) hypertension; E78.00 Pure hypercholesterolemia, unspecified; F17.290 Nicotine dependence, other tobacco product, uncomplicated; F41.9 Anxiety disorder, unspecified; Z79.899 Other long term (current) drug therapy; E66.9 Obesity, unspecified; R11.2 Nausea with vomiting, unspecified
CPT/HCPCS: 80048; 80076; 83690; 84703; 85025; 96361; 96374; 96375; 96376; 99283; A4216; J2405

== ENCOUNTER 2025-07-18 00:28 | Emergency (ER) | payer MEDICAID, SELFPAY ==
[2025-07-18 00:29] VITALS: BP 92/60; PULSE 45; RESP 16; TEMP 36.6; O2SAT 97; BMI 31.7
--- NOTE | 2025-07-18 01:20 | RAD_ITS ---
PROCEDURE: ACUTE ABDOMEN INC CHEST 07/18/2025 REASON FOR EXAM: ABD PAIN TECHNIQUE: Procedure Code: RADABDCA Modality: DX Procedure: ACUTE ABDOMEN INC CHEST COMPARISON: CT scan on 05/28/2025. FINDINGS: Mild amount of fecal residue in the large bowels. There is an unremarkable bowel gas pattern. There is no demonstrated free abdominal air. Normal visualized liver. Normal visualized spleen. Normal visualized kidneys. The soft tissue structures of the pelvis are unremarkable. Normal visualized osseous structures. The lungs are expanded. There is no demonstrated parenchymal abnormality. There is no demonstrated pleural abnormality. Normal heart and pericardium. Normal mediastinum and ever. Normal visualized pulmonary arteries. Normal visualized aortic arch and descending thoracic aorta. Normal visualized thoracic spine. Normal visualized ribs, clavicles, and shoulders. RAD/Acute Abdomen Inc Chest IMPRESSION: Mild amount of fecal residue in the large bowels. Reading [facility]
[2025-07-18 01:25] LABS: Hematocrit 35.3 % (37-47); Hemoglobin 11.9 g/dL (12.0-15.0); Immature Granulocytes Count 0.020 X10^3/uL (0.0-0.0); Mean Corp Hgb Conc 33.7 g/dL (32-36); Mean Corpuscular Volume 90.5 fL (81-99); Mean Platelet Vol. 12.3 fl (6.2-12.0); NRBC Flagged by Analyzer 0 % (0-5); Platelet Count 256 K/mm3 (150-450); RBC Distribution Width CV 13.3 % (11.6-14.6); RBC Distribution Width SD 43.3 fl (35.1-43.9); Red Blood Count 3.90 M/mm3 (4.2-5.4); White Blood Count 8.5 K/mm3 (4.4-11.0)
[2025-07-18] MEDS: DiphenhydrAMINE 50 MG/ML Syringe 25 MG IV (01:27)
[2025-07-18] MEDS: 0.9% Normal Saline (1000mL) 1,000 ML 999 ML IV (01:27)
[2025-07-18 01:38] LABS: AST(SGOT) 41 U/L (<=31); Alanine Aminotransfer ALT/SGPT 21 U/L (<=34); Albumin, Serum 4.2 g/dL (3.5-5.0); Alkaline Phosphatase 114 U/L (35-104); Anion Gap 17 (5-15); BUN 7 mg/dL (4-19); BUN/Creat Ratio 10.5 RATIO (10-20); Bilirubin, Direct 0.18 mg/dL (0.00-0.30); Calcium,Total 9.6 mg/dL (7.6-11.0); Carbon Dioxide 19.1 mmol/L (21.0-32.0); Chloride 103 mmol/L (98-108); Estimated Creatinine Clearance 109.26 ml/min (50-250); Globulin 2.9 g/dL (2.2-4.2); Glucose 136 mg/dL (70-99); Lipase 18 U/L (13-75); Magnesium 2.0 mg/dL (1.5-2.2); Potassium 3.3 mmol/L (3.3-5.1)
[2025-07-18 02:37] VITALS: PULSE 50; RESP 16; O2SAT 97
--- NOTE | 2025-07-18 02:50 | EX.ED.DYSGE1 ---
HPI History of Present Illness Chief Complaint: General Illness Informant: patient Narrative Narrative: Patient is a 35-year-old female with past medical history of hypertension gastroparesis anxiety and depression as well as bipolar disorder. She states that she has been having difficulty keeping food or fluid down for the last few days. She states that this is not uncommon for her because of her gastroparesis. However she states she has been taking her medication as directed and symptoms are not improving. She states that last time this occurred she had to be admitted because symptoms were persistent for almost 2 weeks. She states that its only been a few days but she is concerned that the symptoms are similar to the last time she needed placed in the hospital and therefore comes in for evaluation. [facility] Medical History Gastroparesis Pancreatitis Right knee pain Avulsion fracture of lateral malleolus of right fibula Left renal stone Smoker Bilateral renal stones Wears glasses Wears dentures Alcohol use Marijuana use History of renal disease Fatty liver High cholesterol Easy bruising Restless legs Syncope Gastric reflux Environmental and seasonal allergies Leg cramps History of edema History of echocardiogram History of stress test Cardiology follow-up encounter Hypertension Peptic ulcer of stomach Migraine Chronic interstitial cystitis Endometriosis Bipolar disorder Anxiety Depression Back pain Conversion disorder History of cervical cancer Kidney stone Fibromyalgia Home Medications ?Medication ?Instructions ?Recorded ?Last Taken ?Type escitalopram oxalate 20 mg tablet 20 mg PO DAILY DEPRESSION 09/22/21 10/27/23 History (Lexapro) tizanidine 4 mg tablet 4 mg PO TID MUSCLE SPASMS 10/28/23 10/27/23 History propranolol 10 mg tablet 10 mg PO DAILY 12/12/23 Unknown History atogepant 60 mg tablet (Qulipta) 60 mg PO QHS 04/21/24 Unknown History rimegepant 75 mg disintegrating 75 mg PO ONCE PRN migraine headache 04/21/24 Unknown History tablet (Nurtec ODT) ondansetron 4 mg disintegrating 4 mg PO Q8H PRN PRN Nausea #10 tabs 07/30/24 Unknown Rx tablet MAGIC MOUTH WASH (BMX) 180 mL 5 - 10 ml PO Q6H PRN PRN gastritis 11/04/24 Unknown Rx suspension #180 mL metoclopramide HCl 5 mg tablet 5 mg PO Q6H PRN nausea and 11/04/24 11/06/24 17:30 Rx (Reglan) vomiting #20 tabs oxycodone-acetaminophen 5 mg-325 1 tab PO Q4H PRN pain 11/06/24 Unknown History mg tablet (Percocet) pantoprazole 40 mg tablet,delayed 40 mg PO BID 11/06/24 Unknown History release promethazine 25 mg tablet 25 mg PO TID PRN PRN 11/06/24 Unknown History nausea/vomiting granisetron HCl 1 mg tablet 1 mg PO Q12H PRN 01/22/25 Unknown History olanzapine 10 mg disintegrating 10 mg PO QHS 01/22/25 Unknown History tablet sucralfate 1 gram tablet 1 g PO BID 01/22/25 Unknown History diphenhydramine HCl 12.5 mg/5 mL 12.5 mg PO PRN 02/03/25 Unknown History oral liquid mirabegron 50 mg tablet,extended 50 mg PO DAILY 02/03/25 Unknown History release 24 hr (Myrbetriq) dicyclomine 20 mg tablet 20 mg PO 4X/DAY PRN PRN abdominal 03/07/25 Unknown History pain umbvyh-gyiyexgw-pughgup 1 cap PO TID 03/07/25 Unknown History 12,000-38,000-60,000 unit capsule,delayed rel (Creon) amlodipine 2.5 mg tablet 2.5 mg PO DAILY 07/13/25 Unknown History polyethylene glycol 3350 17 17 g PO DAILY #510 grams 07/18/25 Unknown Rx gram/dose oral powder (Miralax) Allergy/AdvReac Type Severity Reaction Status Date / Time amitriptyline Allergy MUSCLE Verified 07/13/25 01:49 SPASMS Bleach (Sodium Hypochlorite) Allergy Hives Verified 07/13/25 01:49 ketorolac (From Toradol) Allergy Itching Verified 07/13/25 01:49 nitrofurantoin (From Allergy Anaphylaxis Verified 07/13/25 01:49 Macrodantin) NSAIDS (Non-Steroidal Allergy Other Verified 07/13/25 01:49 Anti-Inflamma oseltamivir (From Tamiflu) Allergy SOB Verified 07/13/25 01:49 doxycycline AdvReac Vomiting Verified 07/13/25 01:49 Family History Mother Hypertension Migraine Grandmother CVA (cerebral vascular accident) Grandfather Diabetes Father Myocardial infarction Surgical History History of cystoscopy S/P laparoscopic surgery History of hysterectomy Hx of cholecystectomy Social History household members: significant other Smoking Status: Current every day smoker tobacco type: e-cigarettes alcohol intake: current details: occasionally substance use type: does not use caffeine: Yes what type of physical activity do you participate in: walking frequency: 1-2 times per week seatbelt use: always do you feel safe at home: Yes additional social history: Single ROS ROS ED Constitutional Constitutional ED: Reports other Details: Positive fatigue ; Denies chills or fever(s) ENT ENT ED: Denies rhinorrhea or sore throat Cardiovascular Cardiovascular: Denies chest pain Respiratory/Chest Respiratory/Chest: Denies cough or dyspnea Gastrointestinal Gastrointestinal: Reports abdominal pain, constipation, nausea and vomiting; Denies diarrhea Genitourinary Genitourinary ED: Denies dysuria Musculoskeletal Musculoskeletal: Denies back pain or myalgias Integumentary Denies rash Neurologic Neurologic: Reports weakness; Denies headache(s) Psychiatric Psychiatric: Reports anxiety and depression Hematologic/Lymphatic Hematologic/Lymphatic: Denies easy bleeding or easy bruising EXAM Physical Exam Const Vital Signs: 07/18/25 00:29 07/18/25 00:33 07/18/25 02:37 Temperature 97.9 F Temperature Source Oral Pulse Rate 45 L 50 L Respiratory Rate 16 16 Respiratory Effort Normal Non-Labored Blood Pressure 92/60 Blood Pressure Mean 70 Pulse Ox 97 97 Oxygen Delivery Method Room Air 07/18/25 02:55 Temperature 98.0 F Temperature Source Pulse Rate 47 L Respiratory Rate 16 Respiratory Effort Blood Pressure 96/56 L Blood Pressure Mean 69 Pulse Ox 97 Oxygen Delivery Method Positive well nourished, well developed and obese General Appearance ED: well developed; Negative for pallor Nutritional Appearance: obese HEENT Reports dry mucous membranes HEENT Narrative: Normocephalic atraumatic No tongue or lip swelling no oral lesions no airway edema or compromise; no secondary findings in the posterior pharynx to suggest infection Mucous membranes are mildly dry and tacky Mouth ED: Yes dry mucous membranes Mouth: dry mucous membranes Eyes PERRL and EOMs intact bilaterally General Eye ED: Negative for scleral icterus Neck supple Resp normal respiratory effort and clear to auscultation bilaterally Resp Narrative: Breath sounds are diminished throughout but overall clear to auscultation Cardio regular rhythm Rate: tachycardic and other Other Details: Bradycardic rate with regular rhythm Radial and carotid pulses are equal and symmetric GI non-distended and no masses GI Narrative: Abdomen is soft and nondistended with hypoactive bowel sounds. There is mild diffuse pain with palpation without voluntary guarding or rigidity or pulsatile mass. No peritoneal signs. Auscultation: hypoactive bowel sounds Palpation: soft Extremity normal to inspection Neuro oriented x3, CN's II-XII intact bilaterally and no sensory deficits noted Sensorium / Orientation: alert Motor Exam: strength 5/5 throughout Psych Psych Narrative: Patient has a depressed/flat affect Mood & Affect: depressed Skin no rashes or lesions noted, no wounds and No skin turgor normal Skin Narrative: Skin turgor is slightly increased General Skin Exam: Negative for jaundice or pallor MDM MDM MDM Narrative Medical decision making narrative: Patient arrived to the ER with stable vitals. She reported feeling overall fatigued/weak and states she has also had difficulty keeping food or fluid down. In order to assess for cause of the weakness such as thyroid dysfunction acute kidney injury electrolyte abnormality acute blood loss anemia or pancreatitis I did like to perform basic laboratory studies. In order to rule out findings potential ileus versus obstruction versus perforation I did elect to perform an acute abdominal series as patient did have CT scans in April and May of this year. The acute abdominal series revealed changes consistent with constipation but were otherwise normal. Lab work revealed changes consistent with mild dehydration but there was no clinically significant electrolyte abnormality or signs of acute kidney injury. Lipase was normal as well going against acute pancreatitis. TSH was normal going against hyper or hypothyroidism. After receiving Benadryl morphine Reglan and IV fluids the patient did report feeling better. On reevaluation her abdomen remains soft and nonsurgical. Therefore this time as she does not have signs of an acute abdomen such as obstruction or ileus and labs do not show clinically significant changes such as acute kidney injury or elevated lipase I do not feel there is need for further intervention or workup and she is otherwise safe for discharge History & Record Review Discussion w/independent historian: Patient Lab Data Attestation: I reviewed the patient's lab results. Labs: Laboratory Results - last 24 hr 07/18/25 07/18/25 00:40 01:30 WBC 8.5 RBC 3.90 L Hgb 11.9 L Hct 35.3 L MCV 90.5 MCH 30.5 MCHC 33.7 RDW Std Deviation 43.3 RDW Coeff of Romario 13.3 Plt Count 256 MPV 12.3 H Immature Gran % (Auto) 0.200 Neut % (Auto) 54.4 Lymph % (Auto) 39.8 [place] % (Auto) 5.3 Eos % (Auto) 0.1 Baso % (Auto) 0.2 Absolute Neuts (auto) 4.6 Absolute Lymphs (auto) 3.40 Nucleated RBC % 0 Sodium 138 Potassium 3.3 Chloride 103 Carbon Dioxide 19.1 L Anion Gap 17 H BUN 7 Creatinine 0.71 Estim Creat Clear Calc 109.26 Est GFR (MDRD) Non-Af 113 BUN/Creatinine Ratio 10.5 Glucose 136 H Lactic Acid 2.2 H* Calcium 9.6 Magnesium 2.0 Total Bilirubin 0.46 Direct Bilirubin 0.18 AST 41 H ALT 21 Alkaline Phosphatase 114 H Total Protein 7.2 Albumin 4.2 Globulin 2.9 Lipase 18 TSH 1.780 Radiography Diagnostic Testing: Clinical Impression(s) from Imaging Studies Acute Abdomen Series 07/18/25 01:20 IMPRESSION: Mild amount of fecal residue in the large bowels. Reading Location: [place] [id number] Acute abdominal series with 1 view chest as interpreted by the emergency medicine physician reveals a nonobstructive nonspecific bowel gas pattern with moderate amount of stool within the colon consistent with constipation. Chest x-ray component reveals no acute infiltrate or pneumothorax or pleural effusion. Discharge Plan Triage Chief Complaint: General Illness ED Provider: Lanre Puentes Dx/Rx/DC Orders Clinical Impression: Dehydration, Gastroparesis, Constipation, Fatigue, Hypertension, Bipolar disorder Instructions: ED Constipation (Adult), ED Dehydration (Adult) Prescriptions: New polyethylene glycol 3350 [Miralax] 17 gram/dose powder 17 g PO DAILY Qty: 510 0RF No Action propranolol 10 mg tablet 10 mg PO DAILY Patient Comments: TAKE 1 TABLET BY MOUTH ONCE DAILY Nurtec ODT 75 mg tablet,disintegrating 75 mg PO ONCE PRN (Reason: migraine headache) Rx Instructions: as a single dose Qulipta 60 mg tablet 60 mg PO QHS escitalopram oxalate [Lexapro] 20 mg Tablet 20 mg PO DAILY tizanidine 4 mg tablet 4 mg PO TID Patient Comments: PT STATES THAT THEY USUALLY TAKE ALL THREE TABLETS TOGETHER ONCE DAILY AT BEDTIME BECAUSE IT MAKES THEM DROWSY ( OF 10-28-23) metoclopramide HCl [Reglan] 5 mg tablet 5 mg PO Q6H PRN (Reason: nausea and vomiting) Qty: 20 0RF MAGIC MOUTH WASH (BMX) 180 mL suspension 5 - 10 ml PO Q6H PRN PRN (Reason: gastritis) Qty: 180 0RF Rx Instructions: diphenhydramine 12.5 mg/5 mL oral liquid 60 mL; aluminum-mag hydroxide-simethicone 400 mg-400 mg-40 mg/5 mL oral susp 60 mL; Lidocaine Viscous 2 % mucosal solution 60 mL; Per 180 mL pantoprazole 40 mg tablet,delayed release (DR/EC) 40 mg PO BID promethazine 25 mg tablet 25 mg PO TID PRN PRN (Reason: nausea/vomiting) oxycodone-acetaminophen [Percocet] 5-325 mg tablet 1 tab PO Q4H PRN (Reason: pain) Patient Comments: patient needs to get it filled, currently out but has not made it to her pharmacy to pick it up granisetron HCl 1 mg tablet 1 mg PO Q12H PRN sucralfate 1 gram tablet 1 g PO BID olanzapine 10 mg tablet,disintegrating 10 mg PO QHS amlodipine 2.5 mg tablet 2.5 mg PO DAILY ondansetron 4 mg tablet,disintegrating 4 mg PO Q8H PRN PRN (Reason: Nausea) Qty: 10 0RF diphenhydramine HCl 12.5 mg/5 mL liquid 12.5 mg PO PRN Patient Comments: [NO ORIGINAL SIG] mirabegron [Myrbetriq] 50 mg tablet extended release 24 hr 50 mg PO DAILY dicyclomine 20 mg tablet 20 mg PO 4X/DAY PRN PRN (Reason: abdominal pain) Creon 12,000-38,000 -60,000 unit capsule,delayed release(DR/EC) 1 cap PO TID Primary Care Provider: Dean Varghese Referrals: Dean Varghese DO [Primary Care Provider, Medical] Activity Restrictions/Additional Instructions: Your workup today revealed findings of mild dehydration but there was no clinically significant electrolyte abnormality or signs of acute kidney damage. Your lipase was normal as well going against pancreatitis. Your x-ray revealed constipation but no signs of bowel blockage. Please keep yourself well-hydrated and begin taking MiraLAX once a day to help stimulate a bowel movement. It will usually take 5 to 10 days before the MiraLAX takes effect. Please continue all of your other medications as directed by your doctor. Return to the ER should you have any further concerns Print Language: Gabonese Disposition Disposition: Home, Self Care Discharge Date/Time: 07/18/25 03:00
[2025-07-18 02:55] VITALS: BP 96/56; PULSE 47; RESP 16; TEMP 36.7; O2SAT 97
[2025-07-18 05:33] LABS: Reflex Lactate? Y
== END 2025-07-18 03:00 | disposition home or self-care (01) ==
PROVIDERS: Emergency Provider Emergency Medicine; Visit Provider Emergency Medicine
DX: E86.0 Dehydration (principal); F31.9 Bipolar disorder, unspecified; K59.00 Constipation, unspecified; I10 Essential (primary) hypertension; K31.84 Gastroparesis; F41.9 Anxiety disorder, unspecified; K21.9 Gastro-esophageal reflux disease without esophagitis; E66.9 Obesity, unspecified; E78.00 Pure hypercholesterolemia, unspecified; M79.7 Fibromyalgia; G25.81 Restless legs syndrome; G43.909 Migraine, unspecified, not intractable, without status migrainosus; F17.290 Nicotine dependence, other tobacco product, uncomplicated; Z90.49 Acquired absence of other specified parts of digestive tract; Z85.41 Personal history of malignant neoplasm of cervix uteri; Z87.19 Personal history of other diseases of the digestive system; Z87.11 Personal history of peptic ulcer disease; Z79.899 Other long term (current) drug therapy
CPT/HCPCS: 74022; 80048; 80076; 83605; 83690; 83735; 84443; 85025; 96361; 96374; 96375; 99282

== ENCOUNTER 2025-07-29 01:57 | Emergency (ER) | payer MEDICAID, SELFPAY ==
[2025-07-29 01:57] VITALS: BP 175/97; PULSE 60; RESP 16; TEMP 36.1; O2SAT 100; BMI 33.7
--- NOTE | 2025-07-29 02:25 | CT_ITS ---
PROCEDURE: ABDOMEN/PELVIS WITHOUT CONT 07/29/2025 REASON FOR EXAM: R FLANK PAIN TECHNIQUE: Procedure Code: CTABDPEL Modality: CT Procedure: ABDOMEN/PELVIS WITHOUT CONT Noncontrast technique limits evaluation of the abdominal and pelvic viscera. Coronal and Sagittal reconstruction series were provided. One or more dose reduction techniques were used (e.g., Automated exposure control, adjustment of the mA and/or kV according to patient size, use of iterative reconstruction technique). RADIATION DOSE SUMMARY: CTDlvol: 14.5 mGy DLP: 757 mGycm COMPARISON: CT scan on 05/13/2025. FINDINGS: Hepatomegaly. Hepatic steatosis. Prior cholecystectomy. Moderate amount of fecal residue in the large bowels, probably constipation. Associated mild stercoral colitis more prominent in the cecum and ascending colon without perforation or pneumatosis coli. Minimal diffuse thickening of the bladder, possibly cystitis. Mild diffuse spondylosis. The visualized lung bases are unremarkable. Normal extrahepatic biliary system. Normal unenhanced spleen. Normal pancreas. Normal bilateral adrenal glands. Normal size of the right kidney. There is no right renal mass. There are no right renal calculi. There is no right hydronephrosis. Normal visualized right ureter. Normal size of the left kidney. There is no left renal mass. There are no left renal calculi. There is no left hydronephrosis. Normal visualized left ureter. Normal visualized stomach. Normal small intestine. The appendix is visualized and appears normal. There is no demonstrated peritoneal fluid. Normal abdominal aorta. Normal inferior vena cava. Normal retroperitoneum. There is no pelvic mass lesion or lymphadenopathy. There is no pelvic fluid. CT/Abdomen/Pelvis without Cont IMPRESSION: Hepatomegaly. Hepatic steatosis. Prior cholecystectomy. Moderate amount of fecal residue in the large bowels, probably constipation. As sociated mild stercoral colitis more prominent in the cecum and ascending colon without perforation or pneumatosis coli. Minimal diffuse thickening of the bladder, possibly cystitis. Mild diffuse spondylosis. Reading Location: [place] [id number]
--- NOTE | 2025-07-29 02:25 | ED.VIS.GI ---
HPI HPI - GI History of Present Illness Chief Complaint: Flank Pain Informant: patient Narrative Narrative: Patient is a 35-year-old female presenting with acute right flank pain, nausea without emesis, and increased urinary frequency. - Reports sudden onset of severe right flank pain this evening, keeping her awake. - Pain radiates slightly to the left side but is primarily on the right. - Associated symptoms include nausea, emesis, and increased urinary frequency. - Denies hematuria or dysuria. - Has a history of nephrolithiasis and UTIs, with similar pain during previous episodes. - Has undergone surgery for nephrolithiasis in the past. - Currently under the care of a urologist, Dr. Jeannette Martinez. - Denies possibility of ; has had a total hysterectomy. [facility] Medical History Gastroparesis Pancreatitis Right knee pain Avulsion fracture of lateral malleolus of right fibula Left renal stone Smoker Bilateral renal stones Wears glasses Wears dentures Alcohol use Marijuana use History of renal disease Fatty liver High cholesterol Easy bruising Restless legs Syncope Gastric reflux Environmental and seasonal allergies Leg cramps History of edema History of echocardiogram History of stress test Cardiology follow-up encounter Hypertension Peptic ulcer of stomach Migraine Chronic interstitial cystitis Endometriosis Bipolar disorder Anxiety Depression Back pain Conversion disorder History of cervical cancer Kidney stone Fibromyalgia Home Medications ?Medication ?Instructions ?Recorded ?Last Taken ?Type escitalopram oxalate 20 mg tablet 20 mg PO DAILY DEPRESSION 09/22/21 10/27/23 History (Lexapro) tizanidine 4 mg tablet 4 mg PO TID MUSCLE SPASMS 10/28/23 10/27/23 History atogepant 60 mg tablet (Qulipta) 60 mg PO QHS 04/21/24 Unknown History rimegepant 75 mg disintegrating 75 mg PO ONCE PRN migraine headache 04/21/24 Unknown History tablet (Nurtec ODT) MAGIC MOUTH WASH (BMX) 180 mL 5 - 10 ml PO Q6H PRN PRN gastritis 11/04/24 Unknown Rx suspension #180 mL metoclopramide HCl 5 mg tablet 5 mg PO Q6H PRN nausea and 11/04/24 11/06/24 17:30 Rx (Reglan) vomiting #20 tabs oxycodone-acetaminophen 5 mg-325 1 tab PO Q4H PRN pain 11/06/24 Unknown History mg tablet (Percocet) pantoprazole 40 mg tablet,delayed 40 mg PO BID 11/06/24 Unknown History release promethazine 25 mg tablet 25 mg PO TID PRN PRN 11/06/24 Unknown History nausea/vomiting olanzapine 10 mg disintegrating 10 mg PO QHS 01/22/25 Unknown History tablet sucralfate 1 gram tablet 1 g PO BID 01/22/25 Unknown History mirabegron 50 mg tablet,extended 50 mg PO DAILY 02/03/25 Unknown History release 24 hr (Myrbetriq) dicyclomine 20 mg tablet 20 mg PO 4X/DAY PRN PRN abdominal 03/07/25 Unknown History pain [id number] 1 cap PO TID 03/07/25 Unknown History 12,000-38,000-60,000 unit capsule,delayed rel (Creon) amlodipine 2.5 mg tablet 2.5 mg PO DAILY 07/13/25 Unknown History polyethylene glycol 3350 17 17 g PO DAILY #510 grams 07/18/25 Unknown Rx gram/dose oral powder (Miralax) Allergy/AdvReac Type Severity Reaction Status Date / Time amitriptyline Allergy MUSCLE Verified 07/29/25 01:58 SPASMS Bleach (Sodium Hypochlorite) Allergy Hives Verified 07/29/25 01:58 droperidol Allergy Anaphylaxis Verified 07/29/25 01:58 ketorolac (From Toradol) Allergy Itching Verified 07/29/25 01:58 nitrofurantoin (From Allergy Anaphylaxis Verified 07/29/25 01:58 Macrodantin) NSAIDS (Non-Steroidal Allergy Other Verified 07/29/25 01:58 Anti-Inflamma oseltamivir (From Tamiflu) Allergy SOB Verified 07/29/25 01:58 doxycycline AdvReac Vomiting Verified 07/29/25 01:58 Family History Mother Hypertension Migraine Grandmother CVA (cerebral vascular accident) Grandfather Diabetes Father Myocardial infarction Surgical History History of cystoscopy S/P laparoscopic surgery History of hysterectomy Hx of cholecystectomy Social History household members: significant other Smoking Status: Current every day smoker tobacco type: e-cigarettes alcohol intake: current details: occasionally substance use type: does not use caffeine: Yes what type of physical activity do you participate in: walking frequency: 1-2 times per week seatbelt use: always do you feel safe at home: Yes additional social history: Single ROS ROS ED Constitutional Constitutional ED: Denies chills or fever(s) Eyes Eyes: Denies change in vision or diplopia ENT ENT ED: Denies rhinorrhea or sore throat Cardiovascular Cardiovascular: Denies chest pain or palpitations Respiratory/Chest Respiratory/Chest: Denies cough or dyspnea Gastrointestinal Gastrointestinal: Reports nausea; Denies abdominal pain, diarrhea or vomiting Genitourinary Genitourinary ED: Reports urinary frequency; Denies dysuria or hematuria Musculoskeletal Musculoskeletal: Reports back pain; Denies neck pain Integumentary Denies abscess or rash Neurologic Neurologic: Denies headache(s), paresthesias or weakness Psychiatric Psychiatric: Denies anxiety or suicidal thoughts EXAM Physical Exam Const Vital Signs: 07/29/25 01:57 07/29/25 05:44 Temperature 97 F L Temperature Source Oral Pulse Rate 60 76 Respiratory Rate 16 16 Blood Pressure 175/97 H Blood Pressure Mean 123 Pulse Ox 100 98 Oxygen Delivery Method Room Air Positive well nourished and well developed General Appearance ED: well developed and NAD HEENT Reports moist mucous membranes normocephalic and atraumatic Eyes PERRL and EOMs intact bilaterally Neck full ROM and supple Resp normal respiratory effort and clear to auscultation bilaterally Cardio regular rate, regular rhythm and no murmurs GI non-distended GI Narrative: Mildly tender right upper quadrant no guarding or rebound Auscultation: normoactive bowel sounds Palpation: soft Back/Spine General Back: CVA tenderness right (Normal inspection no rash) and other FROM Extremity normal to inspection General Extremety ED: Negative for edema, pulses abnormal or tenderness General Extremity: Negative for edema or pulses abnormal Neuro oriented x3, CN's II-XII intact bilaterally and no sensory deficits noted Sensorium / Orientation: awake and alert Motor Exam: strength 5/5 throughout Psych Psych Narrative: Flat affect Skin no rashes or lesions noted and no wounds MDM MDM MDM Narrative Medical decision making narrative: Assessment: The patient is a 35-year-old female with PMH of kidney stones and pyelonephritis presenting for acute right-sided flank/low back pain beginning abruptly this evening, associated with nausea and urinary frequency without hematuria. CT imaging shows no nephrolithiasis and only retained stool; urinalysis is uninfected and kidney function tests are normal. Given these normal studies, nephrolithiasis and pyelonephritis are ruled out; pain is most likely musculoskeletal in origin. Plan: - IV analgesic and antiemetic administered for symptom control. - Will administer oral/IV muscle relaxer prior to discharge for presumed musculoskeletal spasm. - Discharge home once pain improved; patient in agreement with plan. Diagnostics: - CT abdomen/pelvis: no renal calculi; kidneys normal; retained stool noted. - Urinalysis: no evidence of infection. - Kidney function panel: within normal limits. Reevaluations: - Discussed imaging and lab results with patient; pain persists, additional muscle relaxer offered. Lab Data Attestation: I reviewed the patient's lab results. Labs: Laboratory Results - last 24 hr 07/29/25 07/29/25 02:37 02:42 WBC 6.2 RBC 3.89 L Hgb 12.0 Hct 35.3 L MCV 90.7 MCH 30.8 MCHC 34.0 RDW Std Deviation 43.1 RDW Coeff of [place] 13.2 Plt Count 227 MPV 11.8 Immature Gran % (Auto) 0.200 Neut % (Auto) 62.6 Lymph % (Auto) 30.5 [place] % (Auto) 5.8 Eos % (Auto) 0.6 Baso % (Auto) 0.3 Absolute Neuts (auto) 3.9 Absolute Lymphs (auto) 1.89 Nucleated RBC % 0 Sodium 138 Potassium 3.4 Chloride 106 Carbon Dioxide 16.9 L Anion Gap 15 BUN 7 Creatinine 0.69 L Estim Creat Clear Calc 114.15 Est GFR (MDRD) Non-Af 116 BUN/Creatinine Ratio 10.0 Glucose 187 H Calcium 9.3 Urine Color Yellow Urine Clarity Clear Urine pH 6.5 Ur Specific [place] 1.015 Urine Protein 15 H Urine Glucose (UA) 100 H Urine Ketones Negative Urine Occult Blood Negative Urine Nitrite Negative Urine Bilirubin Negative Urine Urobilinogen Normal Ur Leukocyte Esterase Negative Urine RBC 0-5 SEEN Urine WBC 0-5 SEEN Ur Squamous Epith Cells 10-25 SEEN Urine Bacteria RARE Urine Mucus RARE Radiography Diagnostic Testing: Clinical Impression(s) from Imaging Studies Abdomen/Pelvis CT 07/29/25 02:25 IMPRESSION: Hepatomegaly. Hepatic steatosis. Prior cholecystectomy. Moderate amount of fecal residue in the large bowels, probably constipation. Associated mild stercoral colitis more prominent in the cecum and ascending colon without perforation or pneumatosis coli. Minimal diffuse thickening of the bladder, possibly cystitis. Mild diffuse spondylosis. Reading Location: [place] [id number] images and report which I agree with. Patient states she is not currently constipated and has been having normal bowel movements, so this may just be a lot of stool seen in the colon but not constipation. Discharge Plan Triage Chief Complaint: Flank Pain ED Provider: Adelso Jackson Dx/Rx/DC Orders Clinical Impression: Acute right-sided low back pain, Personal history of kidney stones Instructions: ED Back Pain (Acute or Chronic) Prescriptions: No Action Nurtec ODT 75 mg tablet,disintegrating 75 mg PO ONCE PRN (Reason: migraine headache) Rx Instructions: as a single dose Qulipta 60 mg tablet 60 mg PO QHS escitalopram oxalate [Lexapro] 20 mg Tablet 20 mg PO DAILY tizanidine 4 mg tablet 4 mg PO TID Patient Comments: PT STATES THAT THEY USUALLY TAKE ALL THREE TABLETS TOGETHER ONCE DAILY AT BEDTIME BECAUSE IT MAKES THEM DROWSY ( OF 10-28-23) metoclopramide HCl [Reglan] 5 mg tablet 5 mg PO Q6H PRN (Reason: nausea and vomiting) Qty: 20 0RF MAGIC MOUTH WASH (BMX) 180 mL suspension 5 - 10 ml PO Q6H PRN PRN (Reason: gastritis) Qty: 180 0RF Rx Instructions: diphenhydramine 12.5 mg/5 mL oral liquid 60 mL; aluminum-mag hydroxide-simethicone 400 mg-400 mg-40 mg/5 mL oral susp 60 mL; Lidocaine Viscous 2 % mucosal solution 60 mL; Per 180 mL pantoprazole 40 mg tablet,delayed release (DR/EC) 40 mg PO BID promethazine 25 mg tablet 25 mg PO TID PRN PRN (Reason: nausea/vomiting) oxycodone-acetaminophen [Percocet] 5-325 mg tablet 1 tab PO Q4H PRN (Reason: pain) Patient Comments: patient needs to get it filled, currently out but has not made it to her pharmacy to pick it up sucralfate 1 gram tablet 1 g PO BID olanzapine 10 mg tablet,disintegrating 10 mg PO QHS amlodipine 2.5 mg tablet 2.5 mg PO DAILY mirabegron [Myrbetriq] 50 mg tablet extended release 24 hr 50 mg PO DAILY dicyclomine 20 mg tablet 20 mg PO 4X/DAY PRN PRN (Reason: abdominal pain) Creon 12,000-38,000 -60,000 unit capsule,delayed release(DR/EC) 1 cap PO TID polyethylene glycol 3350 [Miralax] 17 gram/dose powder 17 g PO DAILY Qty: 510 0RF Primary Care Provider: Dean Varghese Referrals: Dean Varghese DO [Primary Care Provider, Medical] - 3-5 Days if not improving Print Language: Romansh Disposition Disposition: Home, Self Care
[2025-07-29 02:44] LABS: Hematocrit 35.3 % (37-47); Hemoglobin 12.0 g/dL (12.0-15.0); Immature Granulocytes Count 0.010 X10^3/uL (0.0-0.0); Mean Corp Hgb Conc 34.0 g/dL (32-36); Mean Corpuscular Volume 90.7 fL (81-99); Mean Platelet Vol. 11.8 fl (6.2-12.0); NRBC Flagged by Analyzer 0 % (0-5); Platelet Count 227 K/mm3 (150-450); RBC Distribution Width CV 13.2 % (11.6-14.6); RBC Distribution Width SD 43.1 fl (35.1-43.9); Red Blood Count 3.89 M/mm3 (4.2-5.4); White Blood Count 6.2 K/mm3 (4.4-11.0)
[2025-07-29 03:07] LABS: Color, Urine Yellow (Yellow); Glucose, Dipstick 100 mg/dl (Normal); Ketone-Dipstick Negative (Negative); Leukocyte Esterase-Dipstick Negative /ul (Negative); Nitrite-Dipstick Negative (Negative); Occult Blood-Urine Negative /ul (Negative); Protein-Dipstick 15 mg/dl (Negative); Specific Gravity, Urine 1.015 (1.002-1.030); Urine Bilirubin Dipstick Negative (Negative)
[2025-07-29 03:14] LABS: Anion Gap 15 (5-15); BUN 7 mg/dL (4-19); BUN/Creat Ratio 10.0 RATIO (10-20); Calcium,Total 9.3 mg/dL (7.6-11.0); Carbon Dioxide 16.9 mmol/L (21.0-32.0); Chloride 106 mmol/L (98-108); Estimated Creatinine Clearance 114.15 ml/min (50-250); Glucose 187 mg/dL (70-99); Potassium 3.4 mmol/L (3.3-5.1)
[2025-07-29 03:26] LABS: Mucous, Urine RARE /hpf (<or=2+); Red Blood Cells-Urine 0-5 SEEN /hpf (0-5); Squamous Epithelial Cells - UA 10-25 SEEN /hpf (5-10)
[2025-07-29 05:44] VITALS: PULSE 76; RESP 16; O2SAT 98
[2025-07-29] MEDS: Orphenadrine 60 MG/2 ML Ampul IV (06:43)
[2025-07-29] MEDS: HYDROcodone Bitartrate/Apap 5/325 Tablet PO (06:43)
[2025-07-29 06:46] VITALS: BP 109/79; PULSE 55; RESP 16; TEMP 36.7; O2SAT 99
== END 2025-07-29 06:49 | disposition home or self-care (01) ==
PROVIDERS: Emergency Provider Emergency Medicine; Visit Provider Emergency Medicine
DX: M54.50 Low back pain, unspecified (principal); F31.9 Bipolar disorder, unspecified; R11.0 Nausea; R35.0 Frequency of micturition; M25.561 Pain in right knee; I10 Essential (primary) hypertension; N30.10 Interstitial cystitis (chronic) without hematuria; K21.9 Gastro-esophageal reflux disease without esophagitis; K76.0 Fatty (change of) liver, not elsewhere classified; F41.9 Anxiety disorder, unspecified; M79.7 Fibromyalgia; E78.00 Pure hypercholesterolemia, unspecified; G25.81 Restless legs syndrome; G43.909 Migraine, unspecified, not intractable, without status migrainosus; F17.290 Nicotine dependence, other tobacco product, uncomplicated; Z87.11 Personal history of peptic ulcer disease; Z87.19 Personal history of other diseases of the digestive system; Z87.442 Personal history of urinary calculi; Z90.710 Acquired absence of both cervix and uterus; Z79.899 Other long term (current) drug therapy; Z90.49 Acquired absence of other specified parts of digestive tract
CPT/HCPCS: 73721; 74176; 80048; 81001; 85025; 96374; 96375; 99283; A4216; J2405

== ENCOUNTER → 2025-07-29 | Outpatient (CLI) | payer MEDICAID, SELFPAY ==
--- NOTE | 2025-07-29 08:03 | MRI_ITS ---
PROCEDURE: LOWER EXT JOINT ONLY (ROUTINE) 07/29/2025 REASON FOR EXAM: ASSESS MENISCUS TEAR. TECHNIQUE: Procedure Code: MRILEJ Modality: MR Procedure: LOWER EXT JOINT ONLY (ROUTINE) Multiplanar and multisequence images were obtained without IV contrast administration. COMPARISON: none FINDINGS: Intact medial meniscus with no obvious tears. Intact lateral\ meniscus with no obvious tears. The anterior and posterior cruciate ligaments as well as the medial and lateral collateral ligaments are intact. The medial and lateral patellar retinaculi are intact. The patellar ligament is unremarkable. There is no evidence of fracture or dislocation Medial femoral condyle small bone island. Marrow signal is normal in appearance. The muscles and their tendinous insertions are unremarkable. The posterolateral corner is intact. Minimal knee joint effusion. MRI/Lower Ext Joint Only (Routine) IMPRESSION: No significant internal knee derangement. Minimal knee joint effusion. Reading [facility]
== END | disposition home or self-care (01) ==
LOC: MRI 07:59
PROVIDERS: Referring Provider Orthopaedic Surgery Sports Medicine; Visit Provider Orthopaedic Surgery Sports Medicine
DX: M25.561 Pain in right knee (principal)
CPT/HCPCS: 73721

== ENCOUNTER 2025-08-03 09:27 | Emergency (ER) | payer MEDICAID, SELFPAY ==
[2025-08-03 09:28] VITALS: BP 158/94; PULSE 101; RESP 18; TEMP 37; O2SAT 100; BMI 32.1
--- NOTE | 2025-08-03 09:51 | CT_ITS ---
PROCEDURE: ABDOMEN/PELVIS WITHOUT CONT 08/03/2025 REASON FOR EXAM: Right flank pain for 1 day. Dark urine. Prior history of pancreatitis and hypertension TECHNIQUE: Procedure Code: [id number] Modality: CT Procedure: ABDOMEN/PELVIS WITHOUT CONT Noncontrast technique limits evaluation of the abdominal and pelvic viscera. Coronal and Sagittal reconstruction series were provided. One or more dose reduction techniques were used (e.g., Automated exposure control, adjustment of the mA and/or kV according to patient size, use of iterative reconstruction technique). RADIATION DOSE SUMMARY: CTDlvol: 12 mGy DLP: 655 mGycm COMPARISON: July 29, 2025, May 28, 2025 FINDINGS: Lung bases: Clear Liver: Enlarged and diffusely fatty infiltrated. No mass. Gallbladder: Cholecystectomy Spleen: Normal Pancreas: Normal Adrenals: Normal Kidneys: Normal. No collecting system dilation, calculus or mass. Bladder: Normal Reproductive Organs: Hysterectomy. No adnexal mass. Bowel: Stomach is normal. Small bowel is normal. The colon is mildly degraded by respiratory and peristaltic motion, but is otherwise normal. Appendix: Normal Lymph nodes: None appear enlarged. Vasculature: Normal Peritoneum / Retroperitoneum: No free air, free fluid or mass. Bones: Normal CT/Abdomen/Pelvis without Cont IMPRESSION: 1. Cholecystectomy. Hysterectomy. 2. Normal appendix 3. No renal mass, collecting system dilation or calculus. 4. Enlarged, diffusely fatty infiltrated liver. Reading Location: [id number]
--- NOTE | 2025-08-03 09:51 | ED.VIS.FEGU ---
HPI HPI - Female History of Present Illness Chief Complaint: Flank Pain Informant: patient Associated Symptoms Associated Symptoms: Positive for Urgency Narrative Narrative: 35-year-old female history of prior hysterectomy cholecystectomy. Complaining of right flank pain with dark urine since yesterday. Says her urine is cloudy and has a strong odor. Chills. No vomiting. No diarrhea. No fever. She has had a history of prior kidney stones and urinary tract infections. Prior similar symptoms: Yes Recent Illness/Hospitalization: No PFSH PFSH Medical History Effusion, right knee Gastroparesis Pancreatitis Right knee pain Avulsion fracture of lateral malleolus of right fibula Left renal stone Smoker Bilateral renal stones Wears glasses Wears dentures Alcohol use Marijuana use History of renal disease Fatty liver High cholesterol Easy bruising Restless legs Syncope Gastric reflux Environmental and seasonal allergies Leg cramps History of edema History of echocardiogram History of stress test Cardiology follow-up encounter Hypertension Peptic ulcer of stomach Migraine Chronic interstitial cystitis Endometriosis Bipolar disorder Anxiety Depression Back pain Conversion disorder History of cervical cancer Kidney stone Fibromyalgia Home Medications ?Medication ?Instructions ?Recorded ?Last Taken ?Type escitalopram oxalate 20 mg tablet 20 mg PO DAILY DEPRESSION 09/22/21 10/27/23 History (Lexapro) tizanidine 4 mg tablet 4 mg PO TID MUSCLE SPASMS 10/28/23 10/27/23 History atogepant 60 mg tablet (Qulipta) 60 mg PO QHS 04/21/24 Unknown History rimegepant 75 mg disintegrating 75 mg PO ONCE PRN migraine headache 04/21/24 Unknown History tablet (Nurtec ODT) MAGIC MOUTH WASH (BMX) 180 mL 5 - 10 ml PO Q6H PRN PRN gastritis 11/04/24 Unknown Rx suspension #180 mL metoclopramide HCl 5 mg tablet 5 mg PO Q6H PRN nausea and 11/04/24 11/06/24 17:30 Rx (Reglan) vomiting #20 tabs oxycodone-acetaminophen 5 mg-325 1 tab PO Q4H PRN pain 11/06/24 Unknown History mg tablet (Percocet) pantoprazole 40 mg tablet,delayed 40 mg PO BID 11/06/24 Unknown History release promethazine 25 mg tablet 25 mg PO TID PRN PRN 11/06/24 Unknown History nausea/vomiting olanzapine 10 mg disintegrating 10 mg PO QHS 01/22/25 Unknown History tablet sucralfate 1 gram tablet 1 g PO BID 01/22/25 Unknown History mirabegron 50 mg tablet,extended 50 mg PO DAILY 02/03/25 Unknown History release 24 hr (Myrbetriq) dicyclomine 20 mg tablet 20 mg PO 4X/DAY PRN PRN abdominal 03/07/25 Unknown History pain [id number] 1 cap PO TID 03/07/25 Unknown History 12,000-38,000-60,000 unit capsule,delayed rel (Creon) amlodipine 2.5 mg tablet 2.5 mg PO DAILY 07/13/25 Unknown History polyethylene glycol 3350 17 17 g PO DAILY #510 grams 07/18/25 Unknown Rx gram/dose oral powder (Miralax) cephalexin 500 mg capsule 500 mg PO Q6 7 days #28 CAPSULES 08/03/25 Unknown Rx Allergy/AdvReac Type Severity Reaction Status Date / Time amitriptyline Allergy MUSCLE Verified 08/03/25 09:28 SPASMS Bleach (Sodium Hypochlorite) Allergy Hives Verified 08/03/25 09:28 droperidol Allergy Anaphylaxis Verified 08/03/25 09:28 ketorolac (From Toradol) Allergy Itching Verified 08/03/25 09:28 nitrofurantoin (From Allergy Anaphylaxis Verified 08/03/25 09:28 Macrodantin) NSAIDS (Non-Steroidal Allergy Other Verified 08/03/25 09:28 Anti-Inflamma oseltamivir (From Tamiflu) Allergy SOB Verified 08/03/25 09:28 doxycycline AdvReac Vomiting Verified 08/03/25 09:28 Family History Mother Hypertension Migraine Grandmother CVA (cerebral vascular accident) Grandfather Diabetes Father Myocardial infarction Surgical History History of cystoscopy S/P laparoscopic surgery History of hysterectomy Hx of cholecystectomy Social History household members: significant other Smoking Status: Current every day smoker tobacco type: e-cigarettes alcohol intake: current details: occasionally substance use type: does not use caffeine: Yes what type of physical activity do you participate in: walking frequency: 1-2 times per week seatbelt use: always do you feel safe at home: Yes additional social history: Single ROS ROS ED ROS Narrative Right flank pain. Constitutional Constitutional ED: Reports chills; Denies fever(s) Eyes Eyes: Denies blurry vision ENT ENT ED: Denies ear pain Cardiovascular Cardiovascular: Denies chest pain Respiratory/Chest Respiratory/Chest: Denies cough or dyspnea Gastrointestinal Gastrointestinal: Reports abdominal pain; Denies diarrhea, melena, nausea or vomiting Genitourinary Genitourinary ED: Reports dysuria and urinary frequency Musculoskeletal Musculoskeletal: Denies arthralgias or myalgias Integumentary Denies abscess Neurologic Neurologic: Denies headache(s) Psychiatric Psychiatric: Denies anxiety Endocrine Endocrinology: Denies heat intolerance Hematologic/Lymphatic Hematologic/Lymphatic: Denies easy bleeding, easy bruising or lymphadenopathy Allergic/Immunologic Allergic/Immunologic ED: Denies mouth swelling, tongue swelling or urticaria EXAM Physical Exam Narrative Exam Narrative: 35-year-old female sitting upright in bed. Vital signs stable afebrile. No acute distress. H EENT exam pupils round react light. Moist mutes pharynx. Neck nontender no JVD. Lungs clear to auscultation bilaterally. Heart regular rhythm no murmur. Abdomen soft, nontender, nondistended, normal bowel sounds without peritoneal signs. Moving all 4 extremities. Normal strength. Normal range of motion. Nontender no edema. Back right CVA tenderness. Neurologically patient is awake alert. Answer questions following commands. Const Vital Signs: 08/03/25 09:28 08/03/25 11:27 08/03/25 12:25 Temperature 98.6 F Temperature Source Oral Pulse Rate 101 H 84 95 Respiratory Rate 18 18 16 Blood Pressure 158/94 H 120/68 175/106 H Blood Pressure Mean 115 85 129 Pulse Ox 100 98 98 Oxygen Delivery Method Room Air Room Air Positive well nourished and well developed; Negative for cachectic, contractures or unkempt General Appearance ED: well developed and NAD; Negative for unkempt, cachectic, contractures or pallor Nutritional Appearance: Negative for cachectic HEENT Reports moist mucous membranes Negative for trauma or tenderness Eyes PERRL and EOMs intact bilaterally General Eye ED: Negative for pale conjunctiva or scleral icterus Neck no lymphadenopathy and no JVD Chest Wall inspection of chest normal and palpation of chest normal Resp normal respiratory effort and clear to auscultation bilaterally Cardio regular rate, regular rhythm, S1 normal heart sound and no murmurs GI normal to inspection, nondistended, normoactive bowel sounds, soft to palpation and non-tender Auscultation: normoactive bowel sounds Back/Spine no CVA tenderness Back/Spine Narrative: Right CVA tenderness. General Back: CVA tenderness Cervical Spine: Negative for cervical spine tenderness Thoracic Spine / Upper Back: Negative for thoracic spinal tenderness Lumbar Spine / Lower Back: Negative for lumbar spinal tenderness Extremity normal to inspection and full ROM General Extremety ED: Negative for edema or tenderness General Extremity: Negative for edema Neuro oriented x3 and CN's II-XII intact bilaterally Sensorium / Orientation: alert, oriented to person, oriented to place and oriented to time Psych mental status grossly normal Appearance: Negative for unkempt Skin no rashes or lesions noted and no wounds General Skin Exam: Negative for jaundice or pallor Rashes: No rashes noted Trauma: Negative for other MDM MDM MDM Narrative Medical decision making narrative: 35-year-old female right flank pain history of stones urine sample looks cloudy like it may be infected. Differential would include UTI, pyelonephritis, kidney stone versus other. She be treated with IV morphine and Zofran for pain. CAT scan labs of the done. She has had a hysterectomy does not need a test. Repeat exam patient is doing well at 3:14 PM. Initially were giving her IV medication but the nurses were unable to get an IV so the medications were given IM and p.o. Waiting on the micro UA. Patient does not want to wait any longer. She wants me to call her if it is infected. She will be discharged to home. She understands so far the labs look good and her CAT scan looks good. Microscopic UA looks infected. I will notify the patient by phone and already sent in a prescription for Keflex. History & Record Review Discussion w/independent historian: Family Additional record(s) reviewed:: Prior outpatient record and Prior labs Lab Data Attestation: I reviewed the patient's lab results. Lab results narrative: CBC shows a white count of 7. H&H 12 and 36. Platelets 266. Electrolytes show gap 14. BUN and creatinine 9 and 0.6. Glucose 93. UA negative. No nitrates. 10-25 white cells 2+ bacteria. I will call the patient's will be started on Keflex and send a prescription in. CT flank study no stone. No acute process. Labs: Laboratory Results - last 24 hr 08/03/25 08/03/25 10:20 11:29 WBC 7.3 RBC 3.92 L Hgb 12.3 Hct 36.0 L MCV 91.8 MCH 31.4 MCHC 34.2 RDW Std Deviation 46.5 H RDW Coeff of Romario 13.8 Plt Count 266 MPV 11.1 Immature Gran % (Auto) 0.400 Neut % (Auto) 62.3 Lymph % (Auto) 31.8 [place] % (Auto) 5.4 Eos % (Auto) 0.0 Baso % (Auto) 0.1 Absolute Neuts (auto) 4.5 Absolute Lymphs (auto) 2.31 Nucleated RBC % 0 Sodium 142 Potassium 3.7 Chloride 107 Carbon Dioxide 21.0 Anion Gap 14 BUN 9 Creatinine 0.66 L Estim Creat Clear Calc 120.86 Est GFR (MDRD) Non-Af 117 BUN/Creatinine Ratio 13.4 Glucose 93 Calcium 9.9 Urine Color Yellow Urine Clarity Sl. Cloudy Urine pH 6.5 Ur Specific [place] 1.010 Urine Protein 30 H Urine Glucose (UA) Normal Urine Ketones Negative Urine Occult Blood 10 H Urine Nitrite Negative Urine Bilirubin Negative Urine Urobilinogen Normal Ur Leukocyte Esterase 500 H Urine RBC 0 SEEN Urine WBC 10-25 SEEN Ur Squamous Epith Cells 0-5 SEEN Urine Bacteria 2+ Urine Mucus 0 SEEN Radiography Diagnostic Testing: Clinical Impression(s) from Imaging Studies Abdomen/Pelvis CT 08/03/25 09:51 IMPRESSION: 1. Cholecystectomy. Hysterectomy. 2. Normal appendix 3. No renal mass, collecting system dilation or calculus. 4. Enlarged, diffusely fatty infiltrated liver. Reading Location: [facility] Discharge Plan Triage Chief Complaint: Flank Pain ED Provider: Satya Page Dx/Rx/DC Orders Clinical Impression: Acute right flank pain, History of renal stone, History of fibromyalgia Instructions: ED Flank Pain with Uncertain Cause Prescriptions: New cephalexin 500 mg capsule 500 mg PO Q6 7 Days Qty: 28 0RF No Action Nurtec ODT 75 mg tablet,disintegrating 75 mg PO ONCE PRN (Reason: migraine headache) Rx Instructions: as a single dose Qulipta 60 mg tablet 60 mg PO QHS escitalopram oxalate [Lexapro] 20 mg Tablet 20 mg PO DAILY tizanidine 4 mg tablet 4 mg PO TID Patient Comments: PT STATES THAT THEY USUALLY TAKE ALL THREE TABLETS TOGETHER ONCE DAILY AT BEDTIME BECAUSE IT MAKES THEM DROWSY ( OF 10-28-23) metoclopramide HCl [Reglan] 5 mg tablet 5 mg PO Q6H PRN (Reason: nausea and vomiting) Qty: 20 0RF MAGIC MOUTH WASH (BMX) 180 mL suspension 5 - 10 ml PO Q6H PRN PRN (Reason: gastritis) Qty: 180 0RF Rx Instructions: diphenhydramine 12.5 mg/5 mL oral liquid 60 mL; aluminum-mag hydroxide-simethicone 400 mg-400 mg-40 mg/5 mL oral susp 60 mL; Lidocaine Viscous 2 % mucosal solution 60 mL; Per 180 mL pantoprazole 40 mg tablet,delayed release (DR/EC) 40 mg PO BID promethazine 25 mg tablet 25 mg PO TID PRN PRN (Reason: nausea/vomiting) oxycodone-acetaminophen [Percocet] 5-325 mg tablet 1 tab PO Q4H PRN (Reason: pain) Patient Comments: patient needs to get it filled, currently out but has not made it to her pharmacy to pick it up sucralfate 1 gram tablet 1 g PO BID olanzapine 10 mg tablet,disintegrating 10 mg PO QHS amlodipine 2.5 mg tablet 2.5 mg PO DAILY mirabegron [Myrbetriq] 50 mg tablet extended release 24 hr 50 mg PO DAILY dicyclomine 20 mg tablet 20 mg PO 4X/DAY PRN PRN (Reason: abdominal pain) Creon 12,000-38,000 -60,000 unit capsule,delayed release(DR/EC) 1 cap PO TID polyethylene glycol 3350 [Miralax] 17 gram/dose powder 17 g PO DAILY Qty: 510 0RF Primary Care Provider: Dean Varghese Referrals: Dean Varghese DO [Primary Care Provider, Medical] - 3-5 Days Activity Restrictions/Additional Instructions: Plenty of fluids and rest. Motrin and Tylenol for pain. Follow-up with your doctor to ensure you are improving. The second part of your urinalysis is not back yet. I will call you if it is infected. Print Language: Luxembourgish Disposition Disposition: Home, Self Care Discharge Date/Time: 08/03/25 15:23
[2025-08-03 10:51] LABS: Color, Urine Yellow (Yellow); Glucose, Dipstick Normal (Normal); Ketone-Dipstick Negative (Negative); Leukocyte Esterase-Dipstick 500 /ul (Negative); Nitrite-Dipstick Negative (Negative); Occult Blood-Urine 10 /ul (Negative); Protein-Dipstick 30 mg/dl (Negative); Specific Gravity, Urine 1.010 (1.002-1.030); Urine Bilirubin Dipstick Negative (Negative)
--- NOTE | 2025-08-03 10:57 | ED.RN ---
unable to obtain iv acess. dr ha. meds changed to im
[2025-08-03 11:27] VITALS: BP 120/68; PULSE 84; RESP 18; O2SAT 98
[2025-08-03 11:42] LABS: Hematocrit 36.0 % (37-47); Hemoglobin 12.3 g/dL (12.0-15.0); Immature Granulocytes Count 0.030 X10^3/uL (0.0-0.0); Mean Corp Hgb Conc 34.2 g/dL (32-36); Mean Corpuscular Volume 91.8 fL (81-99); Mean Platelet Vol. 11.1 fl (6.2-12.0); NRBC Flagged by Analyzer 0 % (0-5); Platelet Count 266 K/mm3 (150-450); RBC Distribution Width CV 13.8 % (11.6-14.6); RBC Distribution Width SD 46.5 fl (35.1-43.9); Red Blood Count 3.92 M/mm3 (4.2-5.4); White Blood Count 7.3 K/mm3 (4.4-11.0)
[2025-08-03] MEDS: HYDROcodone Bitartrate/Apap 5/325 Tablet PO (12:24)
[2025-08-03 12:25] VITALS: BP 175/106; PULSE 95; RESP 16; O2SAT 98
[2025-08-03 12:44] LABS: Anion Gap 14 (5-15); BUN 9 mg/dL (4-19); BUN/Creat Ratio 13.4 RATIO (10-20); Calcium,Total 9.9 mg/dL (7.6-11.0); Carbon Dioxide 21.0 mmol/L (21.0-32.0); Chloride 107 mmol/L (98-108); Estimated Creatinine Clearance 120.86 ml/min (50-250); Glucose 93 mg/dL (70-99); Potassium 3.7 mmol/L (3.3-5.1)
[2025-08-03 15:10] LABS: Mucous, Urine 0 SEEN /hpf (<or=2+); Red Blood Cells-Urine 0 SEEN /hpf (0-5)
[2025-08-03 15:20] LABS: Squamous Epithelial Cells - UA 0-5 SEEN /hpf (5-10)
== END 2025-08-03 15:23 | disposition home or self-care (01) ==
PROVIDERS: Emergency Provider Emergency Medicine; Visit Provider Emergency Medicine
DX: R10.9 Unspecified abdominal pain (principal); F31.9 Bipolar disorder, unspecified; R30.0 Dysuria; R35.0 Frequency of micturition; I10 Essential (primary) hypertension; K21.9 Gastro-esophageal reflux disease without esophagitis; F41.9 Anxiety disorder, unspecified; M79.7 Fibromyalgia; E78.00 Pure hypercholesterolemia, unspecified; G43.909 Migraine, unspecified, not intractable, without status migrainosus; F17.290 Nicotine dependence, other tobacco product, uncomplicated; Z90.49 Acquired absence of other specified parts of digestive tract; Z87.11 Personal history of peptic ulcer disease; Z87.19 Personal history of other diseases of the digestive system; Z90.710 Acquired absence of both cervix and uterus; Z87.442 Personal history of urinary calculi; Z87.440 Personal history of urinary (tract) infections; Z79.899 Other long term (current) drug therapy
CPT/HCPCS: J2405; 74176; 80048; 81002; 85025; 96372; 99282

== ENCOUNTER 2025-08-10 20:21 | Emergency (ER) | payer MEDICAID, SELFPAY ==
[2025-08-10 20:21] VITALS: BP 168/117; PULSE 102; RESP 18; TEMP 36.9; O2SAT 98; BMI 31.0
--- NOTE | 2025-08-10 20:39 | EDS_ITS ---
HPI HPI - GI History of Present Illness Chief Complaint: Abd Pain Detail of Chief Complaint: Abdominal pain Informant: patient Narrative Narrative: Patient presents to the emergency department for abdominal pain that started an hour and a half ago. Patient describes pain in the right upper abdomen with some nausea. There is no vomiting. She states she was seen in the emergency department about 9 days ago for concern about a kidney stone and diagnosed with a UTI and currently finishing up ciprofloxacin. She still has some frequency but no dysuria. Patient has had prior cholecystectomy as well as hysterectomy. [facility] Medical History Effusion, right knee Gastroparesis Pancreatitis Right knee pain Avulsion fracture of lateral malleolus of right fibula Left renal stone Smoker Bilateral renal stones Wears glasses Wears dentures Alcohol use Marijuana use History of renal disease Fatty liver High cholesterol Easy bruising Restless legs Syncope Gastric reflux Environmental and seasonal allergies Leg cramps History of edema History of echocardiogram History of stress test Cardiology follow-up encounter Hypertension Peptic ulcer of stomach Migraine Chronic interstitial cystitis Endometriosis Bipolar disorder Anxiety Depression Back pain Conversion disorder History of cervical cancer Kidney stone Fibromyalgia Home Medications ?Medication ?Instructions ?Recorded ?Last Taken ?Type escitalopram oxalate 20 mg tablet 20 mg PO DAILY DEPRE SSION 09/22/21 10/27/23 History (Lexapro) tizanidine 4 mg tablet 4 mg PO TID MUSCLE SPASMS 10/27/23 History atogepant 60 mg tablet (Qulipta) 60 mg PO QHS 04/21/24 Unknown History rimegepant 75 mg disintegrating 75 mg PO ONCE PRN migr gautam headache 04/21/24 Unknown History tablet (Nurtec ODT) MAGIC MOUTH WASH (BMX) 180 mL 5 - 10 ml PO Q6H PRN PRN gastritis 11/04/24 Unknown Rx suspension #180 mL metoclopramide HCl 5 mg tablet 5 mg PO Q6H PRN nausea and 11/04/24 11/06/24 17:30 Rx (Reglan) vomiting #20 tabs oxycodone-acetaminophen 5 mg-325 1 tab PO Q4H PRN pain 11/06/24 Unknown History mg tablet (Percocet) pantoprazole 40 mg tablet,delayed 40 mg PO BID 5 Unknown History release promethazine 25 mg tablet 25 mg PO TID PRN PRN 5 Unknown History nausea/vomiting olanzapine 10 mg disintegrating 10 mg PO QHS 01/22/25 Unknown History tablet sucralfate 1 gram tablet 1 g PO BID 01/22/25 Unknown History mirabegron 50 mg tablet,extended 50 mg PO DAILY Unknown History release 24 hr (Myrbetriq) dicyclomine 20 mg tablet 20 mg PO 4X/DAY PRN PRN abdo tesha 03/07/25 Unknown History pain [id number]-[id number] 1 cap PO TID 03/07/25 Unknow n History 12,000-38,000-60,000 unit capsule,delayed rel (Creon) amlodipine 2.5 mg tablet 2.5 mg PO DAILY 07/13/25 Unk nown History polyethylene glycol 3350 17 17 g PO DAILY #510 grams 0 07/18/25 Unknown Rx gram/dose oral powder (Miralax) cephalexin 500 mg capsule 500 mg PO Q6 7 days #28 CAPS ULES 08/03/25 Unknown Rx Allergy/AdvReac Type Severity Reaction Status Date / Time amitriptyline Allergy MUSCLE Verified 08/10/25 20:22 SPASMS Bleach (Sodium Hypochlorite) Allergy Hives Verified 08/10/25 20:22 droperidol Allergy Anaphylaxis Verified 08/10/25 20:22 ketorolac (From Toradol) Allergy Itching Verified 08/10/25 20:22 nitrofurantoin (From Allergy Anaphylaxis Verified 08/10/25 20:22 Macrodantin) NSAIDS (Non-Steroidal Allergy Other Verified 08/10/25 20:22
--- NOTE | 2025-08-10 20:39 | ED.VIS.GI ---
HPI HPI - GI History of Present Illness Chief Complaint: Abd Pain Detail of Chief Complaint: Abdominal pain Informant: patient Narrative Narrative: Patient presents to the emergency department for abdominal pain that started an hour and a half ago. Patient describes pain in the right upper abdomen with some nausea. There is no vomiting. She states she was seen in the emergency department about 9 days ago for concern about a kidney stone and diagnosed with a UTI and currently finishing up ciprofloxacin. She still has some frequency but no dysuria. Patient has had prior cholecystectomy as well as hysterectomy. [facility] Medical History Effusion, right knee Gastroparesis Pancreatitis Right knee pain Avulsion fracture of lateral malleolus of right fibula Left renal stone Smoker Bilateral renal stones Wears glasses Wears dentures Alcohol use Marijuana use History of renal disease Fatty liver High cholesterol Easy bruising Restless legs Syncope Gastric reflux Environmental and seasonal allergies Leg cramps History of edema History of echocardiogram History of stress test Cardiology follow-up encounter Hypertension Peptic ulcer of stomach Migraine Chronic interstitial cystitis Endometriosis Bipolar disorder Anxiety Depression Back pain Conversion disorder History of cervical cancer Kidney stone Fibromyalgia Home Medications ?Medication ?Instructions ?Recorded ?Last Taken ?Type escitalopram oxalate 20 mg tablet 20 mg PO DAILY DEPRESSION 09/22/21 10/27/23 History (Lexapro) tizanidine 4 mg tablet 4 mg PO TID MUSCLE SPASMS 10/28/23 10/27/23 History atogepant 60 mg tablet (Qulipta) 60 mg PO QHS 04/21/24 Unknown History rimegepant 75 mg disintegrating 75 mg PO ONCE PRN migraine headache 04/21/24 Unknown History tablet (Nurtec ODT) MAGIC MOUTH WASH (BMX) 180 mL 5 - 10 ml PO Q6H PRN PRN gastritis 11/04/24 Unknown Rx suspension #180 mL metoclopramide HCl 5 mg tablet 5 mg PO Q6H PRN nausea and 11/04/24 11/06/24 17:30 Rx (Reglan) vomiting #20 tabs oxycodone-acetaminophen 5 mg-325 1 tab PO Q4H PRN pain 11/06/24 Unknown History mg tablet (Percocet) pantoprazole 40 mg tablet,delayed 40 mg PO BID 11/06/24 Unknown History release promethazine 25 mg tablet 25 mg PO TID PRN PRN 11/06/24 Unknown History nausea/vomiting olanzapine 10 mg disintegrating 10 mg PO QHS 01/22/25 Unknown History tablet sucralfate 1 gram tablet 1 g PO BID 01/22/25 Unknown History mirabegron 50 mg tablet,extended 50 mg PO DAILY 02/03/25 Unknown History release 24 hr (Myrbetriq) dicyclomine 20 mg tablet 20 mg PO 4X/DAY PRN PRN abdominal 03/07/25 Unknown History pain qezmky-ydalrkir-pkafjdd 1 cap PO TID 03/07/25 Unknown History 12,000-38,000-60,000 unit capsule,delayed rel (Creon) amlodipine 2.5 mg tablet 2.5 mg PO DAILY 07/13/25 Unknown History polyethylene glycol 3350 17 17 g PO DAILY #510 grams 07/18/25 Unknown Rx gram/dose oral powder (Miralax) cephalexin 500 mg capsule 500 mg PO Q6 7 days #28 CAPSULES 08/03/25 Unknown Rx Allergy/AdvReac Type Severity Reaction Status Date / Time amitriptyline Allergy MUSCLE Verified 08/10/25 20:22 SPASMS Bleach (Sodium Hypochlorite) Allergy Hives Verified 08/10/25 20:22 droperidol Allergy Anaphylaxis Verified 08/10/25 20:22 ketorolac (From Toradol) Allergy Itching Verified 08/10/25 20:22 nitrofurantoin (From Allergy Anaphylaxis Verified 08/10/25 20:22 Macrodantin) NSAIDS (Non-Steroidal Allergy Other Verified 08/10/25 20:22 Anti-Inflamma oseltamivir (From Tamiflu) Allergy SOB Verified 08/10/25 20:22 doxycycline AdvReac Vomiting Verified 08/10/25 20:22 Family History Mother Hypertension Migraine Grandmother CVA (cerebral vascular accident) Grandfather Diabetes Father Myocardial infarction Surgical History History of cystoscopy S/P laparoscopic surgery History of hysterectomy Hx of cholecystectomy Social History (Updated 08/10/25 @ 21:15 by Margarette Velazquez) household members: significant other housing: house Smoking Status: Current every day smoker tobacco type: e-cigarettes alcohol intake: current details: occasionally substance use type: does not use caffeine: Yes what type of physical activity do you participate in: walking frequency: 1-2 times per week seatbelt use: always do you feel safe at home: Yes additional social history: Single ROS ROS ED Review of Systems ROS Unobtainable: other Constitutional Constitutional ED: Reports lethargy; Denies chills, fever(s), sweats or weight loss Eyes Eyes: Denies blurry vision, change in vision or diplopia ENT ENT ED: Denies rhinorrhea or sore throat Cardiovascular Cardiovascular: Denies chest pain, orthopnea or racing heartbeat Respiratory/Chest Respiratory/Chest: Denies cough, dyspnea, dyspnea on exertion, orthopnea or sputum Gastrointestinal Gastrointestinal: Reports abdominal pain and nausea; Denies diarrhea or vomiting Genitourinary Genitourinary ED: Reports urinary frequency; Denies dysuria or hematuria Musculoskeletal Musculoskeletal: Denies arthralgias, back pain, myalgias or neck pain Integumentary Denies abscess, Abrasions or rash Neurologic Neurologic: Denies headache(s) or weakness Psychiatric Psychiatric: Denies anxiety, depression or suicidal thoughts Endocrine Endocrinology: Denies polydipsia, polyphagia or polyuria Hematologic/Lymphatic Hematologic/Lymphatic: Denies easy bleeding, easy bruising or lymphadenopathy Allergic/Immunologic Allergic/Immunologic ED: Denies mouth swelling, tongue swelling or urticaria EXAM Physical Exam Const Vital Signs: 08/10/25 20:21 Temperature 98.4 F Temperature Source Oral Pulse Rate 102 H Respiratory Rate 18 Blood Pressure 168/117 H Blood Pressure Mean 134 Pulse Ox 98 Oxygen Delivery Method Room Air Positive well nourished and well developed General Appearance ED: well developed and NAD HEENT Reports TM's clear and moist mucous membranes normocephalic and atraumatic; Negative for trauma or tenderness Tympanic Membrane ED: Yes TM's clear Eyes PERRL and EOMs intact bilaterally General Eye ED: Negative for pale conjunctiva or scleral icterus Neck no lymphadenopathy, supple and no JVD General: Negative for tenderness Chest Wall inspection of chest normal and palpation of chest normal Chest: Negative for tenderness Resp normal respiratory effort and clear to auscultation bilaterally Effort and Inspection: Negative for respiratory distress or pain with movement Auscultation: Negative for rhonchi, wheezes or diminished lung sounds Cardio regular rate, regular rhythm, S1 normal heart sound, S2 normal heart sound and no murmurs Peripheral Pulses: pulses 2+ throughout GI normal to inspection, nondistended, normoactive bowel sounds, soft to palpation, non-distended and no masses GI Narrative: Tenderness to palpation over the right upper quadrant with some guarding. There is no rebound, rigidity, or peritoneal signs. No mass palpated. Back/Spine no CVA tenderness and no thoracic nor lumbar tenderness Extremity normal to inspection General Extremety ED: Negative for edema General Extremity: Negative for edema Neuro oriented x3, CN's II-XII intact bilaterally, no sensory deficits noted and gait normal Sensorium / Orientation: awake, alert, oriented to person, oriented to place and oriented to time Motor Exam: strength 5/5 throughout and strength abnormal Psych mental status grossly normal Skin no rashes or lesions noted and no wounds MDM MDM MDM Narrative Medical decision making narrative: Patient presents with abdominal pain that started an hour and a half prior to arrival. Seen in the emergency department for back pain and possible kidney stone type symptoms 7 days ago and had lab work including a CT scan of the abdomen pelvis that showed a normal appendix and no other acute findings. IV line established initially and she was medicated with morphine and Zofran blood work obtained CBC with differential showed a white count of 7.4 with hemoglobin 12.9 and platelet count of 267. Chemistries unremarkable. AST was minimally elevated 42 which is baseline for her. ALT was 20. Alk phos was minimally elevated 127 again baseline for her. Lipase normal at 23. Urinalysis negative for infection. Discussed results with patient. At this point I do not feel she warrants any imaging as she just had a CT a week ago and has had pain for an hour and a half. Normal lab work. She has had a cholecystectomy and hysterectomy. She does not have any tenderness of the right lower quadrant therefore I do not have concern for appendicitis. She did ask for 1 more dose of pain medicine because the first dose of morphine did give her good relief and I gave her 4 more milligrams of morphine. She does not want the pain medicine for home as she has a contract with her primary care physician. Advised to return if worsening pain, fever, vomiting, or condition should worsen anyway. Etiology of abdominal pain unclear Lab Data Attestation: I reviewed the patient's lab results. Labs: Laboratory Results - last 24 hr 08/10/25 08/10/25 20:53 21:02 WBC 7.4 RBC 4.21 Hgb 12.9 Hct 38.5 MCV 91.4 MCH 30.6 MCHC 33.5 RDW Std Deviation 46.4 H RDW Coeff of Romario 13.9 Plt Count 267 MPV 11.1 Immature Gran % (Auto) 0.300 Neut % (Auto) 69.2 Lymph % (Auto) 24.0 [place] % (Auto) 6.1 Eos % (Auto) 0.3 Baso % (Auto) 0.1 Absolute Neuts (auto) 5.1 Absolute Lymphs (auto) 1.77 Nucleated RBC % 0 Sodium 136 Potassium 4.2 Chloride 104 Carbon Dioxide 15.1 L Anion Gap 17 H BUN 10 Creatinine 0.69 L Estim Creat Clear Calc 113.65 Est GFR (MDRD) Non-Af 116 BUN/Creatinine Ratio 15.1 Glucose 128 H Calcium 9.9 Total Bilirubin 0.31 AST 42 H ALT 20 Alkaline Phosphatase 127 H Total Protein 8.0 Albumin 4.4 Globulin 3.6 Albumin/Globulin Ratio 1.2 Lipase 23 Urine Color Yellow Urine Clarity Clear Urine pH 6.5 Ur Specific [place] 1.010 Urine Protein 15 H Urine Glucose (UA) Normal Urine Ketones Negative Urine Occult Blood 10 H Urine Nitrite Negative Urine Bilirubin Negative Urine Urobilinogen Normal Ur Leukocyte Esterase Negative Urine RBC 5-10 SEEN Urine WBC 0-5 SEEN Ur Squamous Epith Cells 5-10 SEEN Urine Bacteria RARE Urine Mucus 0 SEEN Discharge Plan Triage Chief Complaint: Abd Pain ED Provider: Jm Ansari Dx/Rx/DC Orders Clinical Impression: Abdominal pain Instructions: ED Abdominal Pain Unkn Cause Fem Prescriptions: No Action Nurtec ODT 75 mg tablet,disintegrating 75 mg PO ONCE PRN (Reason: migraine headache) Rx Instructions: as a single dose Qulipta 60 mg tablet 60 mg PO QHS escitalopram oxalate [Lexapro] 20 mg Tablet 20 mg PO DAILY tizanidine 4 mg tablet 4 mg PO TID Patient Comments: PT STATES THAT THEY USUALLY TAKE ALL THREE TABLETS TOGETHER ONCE DAILY AT BEDTIME BECAUSE IT MAKES THEM DROWSY ( OF 10-28-23) metoclopramide HCl [Reglan] 5 mg tablet 5 mg PO Q6H PRN (Reason: nausea and vomiting) Qty: 20 0RF MAGIC MOUTH WASH (BMX) 180 mL suspension 5 - 10 ml PO Q6H PRN PRN (Reason: gastritis) Qty: 180 0RF Rx Instructions: diphenhydramine 12.5 mg/5 mL oral liquid 60 mL; aluminum-mag hydroxide-simethicone 400 mg-400 mg-40 mg/5 mL oral susp 60 mL; Lidocaine Viscous 2 % mucosal solution 60 mL; Per 180 mL pantoprazole 40 mg tablet,delayed release (DR/EC) 40 mg PO BID promethazine 25 mg tablet 25 mg PO TID PRN PRN (Reason: nausea/vomiting) oxycodone-acetaminophen [Percocet] 5-325 mg tablet 1 tab PO Q4H PRN (Reason: pain) Patient Comments: patient needs to get it filled, currently out but has not made it to her pharmacy to pick it up sucralfate 1 gram tablet 1 g PO BID olanzapine 10 mg tablet,disintegrating 10 mg PO QHS amlodipine 2.5 mg tablet 2.5 mg PO DAILY mirabegron [Myrbetriq] 50 mg tablet extended release 24 hr 50 mg PO DAILY dicyclomine 20 mg tablet 20 mg PO 4X/DAY PRN PRN (Reason: abdominal pain) Creon 12,000-38,000 -60,000 unit capsule,delayed release(DR/EC) 1 cap PO TID polyethylene glycol 3350 [Miralax] 17 gram/dose powder 17 g PO DAILY Qty: 510 0RF cephalexin 500 mg capsule 500 mg PO Q6 7 Days Qty: 28 0RF Primary Care Provider: Dean Varghese Referrals: Dean Varghese DO [Primary Care Provider, Medical] - 3-5 Days Print Language: [place]ian Disposition Disposition: Home, Self Care
[2025-08-10] MEDS: 0.9% Normal Saline (1000mL) 1,000 ML 125 ML IV (21:01)
[2025-08-10 21:06] LABS: Hematocrit 38.5 % (37-47); Hemoglobin 12.9 g/dL (12.0-15.0); Immature Granulocytes Count 0.020 X10^3/uL (0.0-0.0); Mean Corp Hgb Conc 33.5 g/dL (32-36); Mean Corpuscular Volume 91.4 fL (81-99); Mean Platelet Vol. 11.1 fl (6.2-12.0); NRBC Flagged by Analyzer 0 % (0-5); Platelet Count 267 K/mm3 (150-450); RBC Distribution Width CV 13.9 % (11.6-14.6); RBC Distribution Width SD 46.4 fl (35.1-43.9); Red Blood Count 4.21 M/mm3 (4.2-5.4); White Blood Count 7.4 K/mm3 (4.4-11.0)
[2025-08-10 21:12] LABS: Mucous, Urine 0 SEEN /hpf (<or=2+)
[2025-08-10 21:18] LABS: Color, Urine Yellow (Yellow); Glucose, Dipstick Normal (Normal); Ketone-Dipstick Negative (Negative); Leukocyte Esterase-Dipstick Negative /ul (Negative); Nitrite-Dipstick Negative (Negative); Occult Blood-Urine 10 /ul (Negative); Protein-Dipstick 15 mg/dl (Negative); Specific Gravity, Urine 1.010 (1.002-1.030); Urine Bilirubin Dipstick Negative (Negative)
[2025-08-10 21:24] LABS: AST(SGOT) 42 U/L (<=31); Alanine Aminotransfer ALT/SGPT 20 U/L (<=34); Albumin, Serum 4.4 g/dL (3.5-5.0); Alkaline Phosphatase 127 U/L (35-104); Anion Gap 17 (5-15); BUN 10 mg/dL (4-19); BUN/Creat Ratio 15.1 RATIO (10-20); Calcium,Total 9.9 mg/dL (7.6-11.0); Carbon Dioxide 15.1 mmol/L (21.0-32.0); Chloride 104 mmol/L (98-108); Estimated Creatinine Clearance 113.65 ml/min (50-250); Globulin 3.6 g/dL (2.2-4.2); Glucose 128 mg/dL (70-99); Lipase 23 U/L (13-75); Potassium 4.2 mmol/L (3.3-5.1)
[2025-08-10 22:08] LABS: Squamous Epithelial Cells - UA 5-10 SEEN /hpf (5-10)
[2025-08-10 22:13] LABS: Red Blood Cells-Urine 5-10 SEEN /hpf (0-5)
[2025-08-10 22:32] VITALS: BP 128/80; PULSE 88; RESP 16; TEMP 36.6; O2SAT 99
== END 2025-08-10 22:51 | disposition home or self-care (01) ==
PROVIDERS: Emergency Provider Emergency Medicine; Visit Provider Emergency Medicine
DX: R10.11 Right upper quadrant pain (principal); F31.9 Bipolar disorder, unspecified; R11.0 Nausea; K21.9 Gastro-esophageal reflux disease without esophagitis; F41.9 Anxiety disorder, unspecified; M79.7 Fibromyalgia; G43.909 Migraine, unspecified, not intractable, without status migrainosus; F17.290 Nicotine dependence, other tobacco product, uncomplicated; Z87.11 Personal history of peptic ulcer disease; Z90.49 Acquired absence of other specified parts of digestive tract; Z90.710 Acquired absence of both cervix and uterus; Z87.440 Personal history of urinary (tract) infections; Z87.442 Personal history of urinary calculi; Z79.899 Other long term (current) drug therapy
CPT/HCPCS: 80053; 81001; 83690; 85025; 96361; 96372; 96374; 96375; 99282; A4216; J2405

== ENCOUNTER 2025-08-13 21:27 | Emergency (ER) | payer MEDICAID, SELFPAY ==
[2025-08-13 21:27] VITALS: BP 154/110; PULSE 116; RESP 18; TEMP 36.6; O2SAT 97; BMI 31.0
[2025-08-13 22:19] LABS: Hematocrit 38.8 % (37-47); Hemoglobin 12.9 g/dL (12.0-15.0); Immature Granulocytes Count 0.010 X10^3/uL (0.0-0.0); Mean Corp Hgb Conc 33.2 g/dL (32-36); Mean Corpuscular Volume 90.2 fL (81-99); Mean Platelet Vol. 11.0 fl (6.2-12.0); NRBC Flagged by Analyzer 0 % (0-5); Platelet Count 272 K/mm3 (150-450); RBC Distribution Width CV 13.5 % (11.6-14.6); RBC Distribution Width SD 44.1 fl (35.1-43.9); Red Blood Count 4.30 M/mm3 (4.2-5.4); White Blood Count 7.2 K/mm3 (4.4-11.0)
[2025-08-13 22:35] LABS: Internal QC Validated? YES +Cl - CLEAR BKGD; Pregnancy, Serum, hCG Quali. NEGATIVE Negative; Record Kit Lot#, Serum Preg. 0000980607
[2025-08-13 22:53] LABS: Mucous, Urine 0 SEEN /hpf (<or=2+)
[2025-08-13 22:56] LABS: AST(SGOT) 58 U/L (<=31); Alanine Aminotransfer ALT/SGPT 77 U/L (<=34); Albumin, Serum 4.6 g/dL (3.5-5.0); Alkaline Phosphatase 180 U/L (35-104); Anion Gap 17 (5-15); BUN 7 mg/dL (4-19); BUN/Creat Ratio 11.0 RATIO (10-20); Calcium,Total 9.9 mg/dL (7.6-11.0); Carbon Dioxide 18.3 mmol/L (21.0-32.0); Chloride 104 mmol/L (98-108); Estimated Creatinine Clearance 126.45 ml/min (50-250); Globulin 3.5 g/dL (2.2-4.2); Glucose 111 mg/dL (70-99); Lipase 32 U/L (13-75); Potassium 3.5 mmol/L (3.3-5.1)
[2025-08-13 23:03] LABS: Color, Urine Yellow (Yellow); Glucose, Dipstick Normal (Normal); Ketone-Dipstick Negative (Negative); Leukocyte Esterase-Dipstick Negative /ul (Negative); Nitrite-Dipstick Negative (Negative); Occult Blood-Urine Negative /ul (Negative); Protein-Dipstick Negative (Negative); Specific Gravity, Urine 1.010 (1.002-1.030); Urine Bilirubin Dipstick Negative (Negative)
[2025-08-13 23:17] LABS: Red Blood Cells-Urine 0-5 SEEN /hpf (0-5); Squamous Epithelial Cells - UA 5-10 SEEN /hpf (5-10)
[2025-08-13 23:27] VITALS: BP 148/100; PULSE 92; RESP 17; O2SAT 97
[2025-08-14] MEDS: HYDROcodone Bitartrate/Apap 5/325 Tablet PO (00:13)
[2025-08-14 00:16] VITALS: BP 151/98; PULSE 91; RESP 17; TEMP 36.6; O2SAT 96
== END 2025-08-14 00:17 | disposition home or self-care (01) ==
PROVIDERS: Emergency Provider Student in an Organized Health Care Education/Training Program; Visit Provider Student in an Organized Health Care Education/Training Program
DX: K52.9 Noninfective gastroenteritis and colitis, unspecified (principal); F31.9 Bipolar disorder, unspecified; R10.11 Right upper quadrant pain; R10.13 Epigastric pain; R74.8 Abnormal levels of other serum enzymes; I10 Essential (primary) hypertension; K21.9 Gastro-esophageal reflux disease without esophagitis; F41.9 Anxiety disorder, unspecified; K76.0 Fatty (change of) liver, not elsewhere classified; K31.84 Gastroparesis; M79.7 Fibromyalgia; N30.10 Interstitial cystitis (chronic) without hematuria; G25.81 Restless legs syndrome; G43.909 Migraine, unspecified, not intractable, without status migrainosus; F17.290 Nicotine dependence, other tobacco product, uncomplicated; Z87.11 Personal history of peptic ulcer disease; Z90.49 Acquired absence of other specified parts of digestive tract; Z87.19 Personal history of other diseases of the digestive system; Z87.442 Personal history of urinary calculi; Z90.710 Acquired absence of both cervix and uterus; Z79.899 Other long term (current) drug therapy
CPT/HCPCS: 74177; 80053; 81001; 83690; 84703; 85025; 96374; 96375; 99284; Q9967; A4216; J2405

== ENCOUNTER 2025-08-15 20:43 | Emergency (ER) | payer MEDICAID, SELFPAY ==
[2025-08-15 20:46] VITALS: BP 160/100; PULSE 103; RESP 18; TEMP 37.2; O2SAT 98; BMI 31.4
[2025-08-15 21:06] LABS: Red Blood Cells-Urine 0 SEEN /hpf (0-5)
[2025-08-15 21:37] LABS: Color, Urine Yellow (Yellow); Glucose, Dipstick Normal (Normal); Ketone-Dipstick Negative (Negative); Leukocyte Esterase-Dipstick 25 /ul (Negative); Nitrite-Dipstick Negative (Negative); Occult Blood-Urine 10 /ul (Negative); Protein-Dipstick 30 mg/dl (Negative); Specific Gravity, Urine 1.015 (1.002-1.030); Urine Bilirubin Dipstick Negative (Negative)
[2025-08-15 22:31] LABS: Hematocrit 38.4 % (37-47); Hemoglobin 13.2 g/dL (12.0-15.0); Immature Granulocytes Count 0.010 X10^3/uL (0.0-0.0); Mean Corp Hgb Conc 34.4 g/dL (32-36); Mean Corpuscular Volume 91.4 fL (81-99); Mean Platelet Vol. 10.5 fl (6.2-12.0); NRBC Flagged by Analyzer 0 % (0-5); Platelet Count 263 K/mm3 (150-450); RBC Distribution Width CV 14.0 % (11.6-14.6); RBC Distribution Width SD 46.2 fl (35.1-43.9); Red Blood Count 4.20 M/mm3 (4.2-5.4); White Blood Count 7.3 K/mm3 (4.4-11.0)
[2025-08-15 22:45] VITALS: BP 154/107; PULSE 102; RESP 16; O2SAT 99
[2025-08-15 23:05] LABS: Calcium Oxalate Crystals Ur 2+ /hpf (<or=2+); Mucous, Urine 1+ /hpf (<or=2+); Squamous Epithelial Cells - UA 0-5 SEEN /hpf (5-10)
[2025-08-15 23:05] LABS: Internal QC Validated? YES +Cl - CLEAR BKGD; Pregnancy, Serum, hCG Quali. NEGATIVE Negative; Record Kit Lot#, Serum Preg. 980607
[2025-08-15 23:18] LABS: AST(SGOT) 49 U/L (<=31); Alanine Aminotransfer ALT/SGPT 58 U/L (<=34); Albumin, Serum 4.6 g/dL (3.5-5.0); Alkaline Phosphatase 165 U/L (35-104); Anion Gap 16 (5-15); BUN 9 mg/dL (4-19); BUN/Creat Ratio 12.2 RATIO (10-20); Calcium,Total 10.0 mg/dL (7.6-11.0); Carbon Dioxide 18.8 mmol/L (21.0-32.0); Chloride 106 mmol/L (98-108); Estimated Creatinine Clearance 112.71 ml/min (50-250); Globulin 3.5 g/dL (2.2-4.2); Glucose 107 mg/dL (70-99); Lipase 36 U/L (13-75); Potassium 3.7 mmol/L (3.3-5.1)
[2025-08-16] VITALS: PULSE 108; RESP 18; TEMP 36.8; O2SAT 97
[2025-08-16] MEDS: 0.9% Normal Saline (1000mL) 1,000 ML 999 ML IV (00:12)
[2025-08-16 00:13] VITALS: BP 181/101
[2025-08-16 01:53] VITALS: BP 161/88; PULSE 100; RESP 20; TEMP 36.4; O2SAT 96
[2025-08-16 02:00] VITALS: BP 180/109; PULSE 100; RESP 18; O2SAT 97
== END 2025-08-16 02:10 | disposition home or self-care (01) ==
PROVIDERS: Emergency Provider Emergency Medicine; Visit Provider Emergency Medicine
DX: R10.11 Right upper quadrant pain (principal); F31.9 Bipolar disorder, unspecified; R19.7 Diarrhea, unspecified; R10.13 Epigastric pain; I10 Essential (primary) hypertension; F41.9 Anxiety disorder, unspecified; E66.9 Obesity, unspecified; K21.9 Gastro-esophageal reflux disease without esophagitis; M79.7 Fibromyalgia; K76.0 Fatty (change of) liver, not elsewhere classified; K31.84 Gastroparesis; N30.10 Interstitial cystitis (chronic) without hematuria; E78.00 Pure hypercholesterolemia, unspecified; G25.81 Restless legs syndrome; G43.909 Migraine, unspecified, not intractable, without status migrainosus; F17.290 Nicotine dependence, other tobacco product, uncomplicated; Z87.19 Personal history of other diseases of the digestive system; Z87.11 Personal history of peptic ulcer disease; Z90.49 Acquired absence of other specified parts of digestive tract; Z79.899 Other long term (current) drug therapy
CPT/HCPCS: 80053; 81001; 83690; 84703; 85025; 96361; 96374; 96375; 96376; 99283; A4216; J2405

== ENCOUNTER 2025-08-21 23:07 | Emergency (ER) | payer MEDICAID, SELFPAY ==
[2025-08-21 23:07] VITALS: BP 166/120; PULSE 109; RESP 20; TEMP 36.9; O2SAT 97; BMI 30.6
[2025-08-21 23:43] VITALS: BP 153/123; PULSE 109; RESP 16; TEMP 37.2; O2SAT 97
[2025-08-21 23:43] LABS: Mucous, Urine 0 SEEN /hpf (<or=2+)
[2025-08-21] MEDS: 0.9% Normal Saline (1000mL) 1,000 ML 999 ML IV (23:44)
[2025-08-21 23:45] LABS: Color, Urine Yellow (Yellow); Glucose, Dipstick Normal (Normal); Ketone-Dipstick Negative (Negative); Leukocyte Esterase-Dipstick 25 /ul (Negative); Nitrite-Dipstick Negative (Negative); Occult Blood-Urine 25 /ul (Negative); Protein-Dipstick 15 mg/dl (Negative); Specific Gravity, Urine 1.010 (1.002-1.030); Urine Bilirubin Dipstick Negative (Negative)
--- NOTE | 2025-08-21 23:55 | CT_ITS ---
PROCEDURE: ABDOMEN/PELVIS W IV CONT ONLY 08/21/2025 REASON FOR EXAM: ABD PAIN TECHNIQUE: Procedure Code: [id number] Modality: CT Procedure: ABDOMEN/PELVIS W IV CONT ONLY Coronal and Sagittal reconstruction series were provided. CONTRAST: 100 mL of Isovue 370 One or more dose reduction techniques were used (e.g., Automated exposure control, adjustment of the mA and/or kV according to patient size, use of iterative reconstruction technique. RADIATION DOSE SUMMARY: DLP: 921 mGycm COMPARISON: 08/13/25 FINDINGS: Limited sections of the lung bases demonstrate no focal pulmonary mass or consolidations. The liver, spleen, pancreas, and both adrenal glands demonstrate no acute findings. Hepatic steatosis. The gallbladder is unremarkable. The stomach is unremarkable. The small bowel loops are not dilated. The appendix is normal. No colonic obstruction. There is no free air or significant free fluid. The kidneys are unremarkable. The urinary bladder is partially distended. The pelvic structures are intact. There is no solid pelvic mass. No significant lymphadenopathy. The aorta and IVC demonstrate no acute findings. Visualized osseous structures demonstrate no acute abnormality. CT/Abdomen/Pelvis W IV Cont ONLY IMPRESSION: No acute intra-abdominal process. Reading Location: [id number]
[2025-08-21 23:58] LABS: Red Blood Cells-Urine 0-5 SEEN /hpf (0-5); Squamous Epithelial Cells - UA 10-25 SEEN /hpf (5-10); Yeast-Urine RARE /hpf (None Seen)
[2025-08-21 23:59] LABS: Internal QC Validated? YES +Cl - CLEAR BKGD; Pregnancy, Serum, hCG Quali. NEGATIVE Negative; Record Kit Lot#, Serum Preg. 0000980607
[2025-08-22 00:06] LABS: Lipase 17 U/L (13-75)
[2025-08-22 00:21] LABS: Hematocrit 40.5 % (37-47); Hemoglobin 14.1 g/dL (12.0-15.0); Immature Granulocytes Count 0.020 X10^3/uL (0.0-0.0); Mean Corp Hgb Conc 34.8 g/dL (32-36); Mean Corpuscular Volume 89.8 fL (81-99); Mean Platelet Vol. 11.7 fl (6.2-12.0); NRBC Flagged by Analyzer 0 % (0-5); Platelet Count 261 K/mm3 (150-450); RBC Distribution Width CV 13.4 % (11.6-14.6); RBC Distribution Width SD 44.3 fl (35.1-43.9); Red Blood Count 4.51 M/mm3 (4.2-5.4); White Blood Count 6.3 K/mm3 (4.4-11.0)
[2025-08-22 00:22] LABS: AST(SGOT) 52 U/L (<=31); Alanine Aminotransfer ALT/SGPT 36 U/L (<=34); Albumin, Serum 4.5 g/dL (3.5-5.0); Alkaline Phosphatase 152 U/L (35-104); Anion Gap 15 (5-15); BUN 10 mg/dL (4-19); BUN/Creat Ratio 10.5 RATIO (10-20); Bilirubin, Direct < 0.08 mg/dL (0.00-0.30); Calcium,Total 10.2 mg/dL (7.6-11.0); Carbon Dioxide 18.0 mmol/L (21.0-32.0); Chloride 103 mmol/L (98-108); Estimated Creatinine Clearance 83.74 ml/min (50-250); Globulin 3.7 g/dL (2.2-4.2); Glucose 128 mg/dL (70-99); Potassium 4.5 mmol/L (3.3-5.1)
[2025-08-22 01:07] VITALS: BP 157/88; PULSE 78; RESP 14; O2SAT 98
--- NOTE | 2025-08-22 01:12 | EX.ED.DYSGE1 ---
HPI History of Present Illness Chief Complaint: Abd Pain Informant: patient Narrative Narrative: Patient is 35-year-old female with past manage of gastroparesis hypertension and bipolar disorder. She states she has been on antibiotics after diagnosis of colitis almost 10 days ago. She states she is just about finished with her medication and she has noticed increasing pain in the upper mid and left abdomen. She states that there is mild nausea but no associated vomiting. She denies diarrhea or dysuria or constipation. She denies any recent trauma. She states that she is taking her normal home medications with minimal symptom improvement and secondary to this presents for evaluation [facility] Medical History Effusion, right knee Gastroparesis Pancreatitis Right knee pain Avulsion fracture of lateral malleolus of right fibula Left renal stone Smoker Bilateral renal stones Wears glasses Wears dentures Alcohol use Marijuana use History of renal disease Fatty liver High cholesterol Easy bruising Restless legs Syncope Gastric reflux Environmental and seasonal allergies Leg cramps History of edema History of echocardiogram History of stress test Cardiology follow-up encounter Hypertension Peptic ulcer of stomach Migraine Chronic interstitial cystitis Endometriosis Bipolar disorder Anxiety Depression Back pain Conversion disorder History of cervical cancer Kidney stone Fibromyalgia Home Medications ?Medication ?Instructions ?Recorded ?Last Taken ?Type escitalopram oxalate 20 mg tablet 20 mg PO DAILY DEPRESSION 09/22/21 10/27/23 History (Lexapro) tizanidine 4 mg tablet 4 mg PO TID MUSCLE SPASMS 10/28/23 10/27/23 History atogepant 60 mg tablet (Qulipta) 60 mg PO QHS 04/21/24 Unknown History rimegepant 75 mg disintegrating 75 mg PO ONCE PRN migraine headache 04/21/24 Unknown History tablet (Nurtec ODT) MAGIC MOUTH WASH (BMX) 180 mL 5 - 10 ml PO Q6H PRN PRN gastritis 11/04/24 Unknown Rx suspension #180 mL metoclopramide HCl 5 mg tablet 5 mg PO Q6H PRN nausea and 11/04/24 11/06/24 17:30 Rx (Reglan) vomiting #20 tabs oxycodone-acetaminophen 5 mg-325 1 tab PO Q4H PRN pain 11/06/24 Unknown History mg tablet (Percocet) pantoprazole 40 mg tablet,delayed 40 mg PO BID 11/06/24 Unknown History release promethazine 25 mg tablet 25 mg PO TID PRN PRN 11/06/24 Unknown History nausea/vomiting olanzapine 10 mg disintegrating 10 mg PO QHS 01/22/25 Unknown History tablet sucralfate 1 gram tablet 1 g PO BID 01/22/25 Unknown History mirabegron 50 mg tablet,extended 50 mg PO DAILY 02/03/25 Unknown History release 24 hr (Myrbetriq) dicyclomine 20 mg tablet 20 mg PO 4X/DAY PRN PRN abdominal 03/07/25 Unknown History pain dsoouo-mioynaro-kldjpzx 1 cap PO TID 03/07/25 Unknown History 12,000-38,000-60,000 unit capsule,delayed rel (Creon) amlodipine 2.5 mg tablet 2.5 mg PO DAILY 07/13/25 Unknown History polyethylene glycol 3350 17 17 g PO DAILY #510 grams 07/18/25 Unknown Rx gram/dose oral powder (Miralax) cephalexin 500 mg capsule 500 mg PO Q6 7 days #28 CAPSULES 08/03/25 Unknown Rx amoxicillin 875 mg-potassium 1 tab PO BID 7 days #14 tabs 08/13/25 Unknown Rx clavulanate 125 mg tablet Allergy/AdvReac Type Severity Reaction Status Date / Time amitriptyline Allergy MUSCLE Verified 08/21/25 23:07 SPASMS Bleach (Sodium Hypochlorite) Allergy Hives Verified 08/21/25 23:07 droperidol Allergy Anaphylaxis Verified 08/21/25 23:07 ketorolac (From Toradol) Allergy Itching Verified 08/21/25 23:07 nitrofurantoin (From Allergy Anaphylaxis Verified 08/21/25 23:07 Macrodantin) NSAIDS (Non-Steroidal Allergy Other Verified 08/21/25 23:07 Anti-Inflamma oseltamivir (From Tamiflu) Allergy SOB Verified 08/21/25 23:07 doxycycline AdvReac Vomiting Verified 08/21/25 23:07 Family History Mother Hypertension Migraine Grandmother CVA (cerebral vascular accident) Grandfather Diabetes Father Myocardial infarction Surgical History History of cystoscopy S/P laparoscopic surgery History of hysterectomy Hx of cholecystectomy Social History household members: significant other housing: house Smoking Status: Current every day smoker tobacco type: e-cigarettes alcohol intake: current details: occasionally substance use type: does not use caffeine: Yes what type of physical activity do you participate in: walking frequency: 1-2 times per week seatbelt use: always do you feel safe at home: Yes additional social history: Single ROS ROS ED Constitutional Constitutional ED: Denies chills or fever(s) ENT ENT ED: Denies sore throat Cardiovascular Cardiovascular: Denies chest pain Respiratory/Chest Respiratory/Chest: Denies cough or dyspnea Gastrointestinal Gastrointestinal: Reports abdominal pain and nausea; Denies diarrhea or vomiting Genitourinary Genitourinary ED: Denies dysuria or hematuria Musculoskeletal Musculoskeletal: Denies back pain or myalgias Integumentary Denies rash Neurologic Neurologic: Denies headache(s) Hematologic/Lymphatic Hematologic/Lymphatic: Denies easy bleeding or easy bruising EXAM Physical Exam Const Vital Signs: 08/21/25 23:07 08/21/25 23:43 08/22/25 01:07 Temperature 98.4 F 99 F Temperature Source Oral Oral Pulse Rate 109 H 109 H 78 Respiratory Rate 20 H 16 14 Blood Pressure 166/120 H 153/123 H 157/88 H Blood Pressure Mean 135 133 111 Pulse Ox 97 97 98 Oxygen Delivery Method Room Air Room Air Room Air 08/22/25 02:50 Temperature 97.7 F L Temperature Source Pulse Rate 79 Respiratory Rate 18 Blood Pressure 144/59 H Blood Pressure Mean 87 Pulse Ox 96 Oxygen Delivery Method Positive well nourished, well developed and obese General Appearance ED: well developed; Negative for pallor Nutritional Appearance: obese HEENT Reports moist mucous membranes HEENT Narrative: Normocephalic atraumatic No tongue or lip swelling no oral lesions no airway edema or compromise. No secondary findings in the posterior pharynx to suggest infection Eyes PERRL and EOMs intact bilaterally General Eye ED: Negative for scleral icterus Neck supple Resp normal respiratory effort and clear to auscultation bilaterally Cardio regular rate and regular rhythm Rate: other Other Details: Radial and carotid pulses are equal and symmetric GI non-distended and no masses GI Narrative: Soft and nondistended with hypoactive bowel sounds. There is pain on palpation in the midepigastric and left upper quadrant without voluntary guarding or rigidity. No pulsatile mass or fluid wave noted Auscultation: hypoactive bowel sounds Palpation: soft Extremity normal to inspection Neuro oriented x3, CN's II-XII intact bilaterally and no sensory deficits noted Sensorium / Orientation: alert Motor Exam: strength 5/5 throughout Psych Psych Narrative: Patient has a flat affect Skin no rashes or lesions noted General Skin Exam: Negative for jaundice or pallor MDM MDM MDM Narrative Medical decision making narrative: Patient arrived ER hypertensive but has a past medical history of this. Her abdomen is soft and nonsurgical. However as she was seen recently and had normal laboratory studies and reports that her symptoms are worsening I do feel the need for a CT scan in order to assess for intestinal pathology such as pancreatitis colitis intestinal abscess perforation or bowel obstruction. Patient blood work was obtained which revealed no clinically significant findings and patient CT scan revealed no intestinal pathology. On reevaluation her vitals have improved with pain and nausea control and her abdomen remains soft and nonsurgical. Therefore at this time as CT scan shows no acute pathology blood work reveals no clinically significant findings and vitals are stable and there is no need for further intervention and she is otherwise safe for discharge History & Record Review Discussion w/independent historian: Patient Lab Data Attestation: I reviewed the patient's lab results. Labs: Laboratory Results - last 24 hr 08/21/25 08/21/25 08/21/25 23:29 23:29 23:36 WBC Cancelled Corrected WBC Cancelled RBC Cancelled Hgb Cancelled Hct Cancelled MCV Cancelled MCH Cancelled MCHC Cancelled RDW Std Deviation Cancelled RDW Coeff of Romario Cancelled Plt Count Cancelled MPV Cancelled Immature Gran % (Auto) Cancelled Neut % (Auto) Cancelled Lymph % (Auto) Cancelled [place] % (Auto) Cancelled Eos % (Auto) Cancelled Baso % (Auto) Cancelled Absolute Neuts (auto) Cancelled Absolute Lymphs (auto) Cancelled Total Counted Cancelled Neutrophils % (Manual) Cancelled Band Neutrophils % Cancelled Lymphocytes % (Manual) Cancelled Monocytes % (Manual) Cancelled Eosinophils % (Manual) Cancelled Basophils % (Manual) Cancelled Metamyelocytes % Cancelled Myelocytes % Cancelled Promyelocytes % Cancelled Blast Cells % Cancelled Plasma Cell % (Manual) Cancelled Other Cells % Cancelled Nucleated RBC % Cancelled Nucleated RBCs/100 WBC Cancelled Differential Comment Cancelled Diff Path Review Cancelled Hypersegmented Neuts Cancelled Atypical Lymphocytes Cancelled Reactive Lymphocytes Cancelled Smudge Cells Cancelled Toxic Granulation Cancelled Toxic Vacuolation Cancelled Dohle Bodies Cancelled Rinku Rods Cancelled Platelet Estimate Cancelled Plt Morphology Comment Cancelled RBC Morphology Cancelled Cancelled Polychromasia Cancelled Hypochromasia Cancelled Basophilic Stippling Cancelled Anisocytosis Cancelled Microcytosis Cancelled Macrocytosis Cancelled Spherocytes Cancelled Sickle Cells Cancelled Target Cells Cancelled Tear Drop Cells Cancelled Ovalocytes Cancelled Stomatocytes Cancelled [place] Bodies Cancelled Connelly Cells Cancelled Bite Cells Cancelled Crenated Cell Cancelled Acanthocytes (Spur) Cancelled Rouleaux Cancelled Schistocytes Cancelled Sodium 136 Potassium 4.5 Chloride 103 Carbon Dioxide 18.0 L Anion Gap 15 BUN 10 Creatinine 0.93 Estim Creat Clear Calc 83.74 Est GFR (MDRD) Non-Af 82 BUN/Creatinine Ratio 10.5 Glucose 128 H Calcium 10.2 Total Bilirubin 0.41 Direct Bilirubin < 0.08 AST 52 H ALT 36 H Alkaline Phosphatase 152 H Total Protein 8.2 Albumin 4.5 Globulin 3.7 Lipase 17 Serum , Qual NEGATIVE Urine Color Yellow Urine Clarity Clear Urine pH 7.0 Ur Specific Bellamy 1.010 Urine Protein 15 H Urine Glucose (UA) Normal Urine Ketones Negative Urine Occult Blood 25 H Urine Nitrite Negative Urine Bilirubin Negative Urine Urobilinogen Normal Ur Leukocyte Esterase 25 H Urine RBC 0-5 SEEN Urine WBC 0-5 SEEN Ur Squamous Epith Cells 10-25 SEEN Urine Bacteria RARE Hyaline Casts 0-5 SEEN Urine Mucus 0 SEEN Urine Yeast RARE 08/22/25 00:00 WBC 6.3 Corrected WBC RBC 4.51 Hgb 14.1 Hct 40.5 MCV 89.8 MCH 31.3 MCHC 34.8 RDW Std Deviation 44.3 H RDW Coeff of Romario 13.4 Plt Count 261 MPV 11.7 Immature Gran % (Auto) 0.300 Neut % (Auto) 55.0 Lymph % (Auto) 39.4 [place] % (Auto) 4.9 Eos % (Auto) 0.2 Baso % (Auto) 0.2 Absolute Neuts (auto) 3.5 Absolute Lymphs (auto) 2.47 Total Counted Neutrophils % (Manual) Band Neutrophils % Lymphocytes % (Manual) Monocytes % (Manual) Eosinophils % (Manual) Basophils % (Manual) Metamyelocytes % Myelocytes % Promyelocytes % Blast Cells % Plasma Cell % (Manual) Other Cells % Nucleated RBC % 0 Nucleated RBCs/100 WBC Differential Comment Diff Path Review Hypersegmented Neuts Atypical Lymphocytes Reactive Lymphocytes Smudge Cells Toxic Granulation Toxic Vacuolation Dohle Bodies Rinku Rods Platelet Estimate Plt Morphology Comment RBC Morphology Polychromasia Hypochromasia Basophilic Stippling Anisocytosis Microcytosis Macrocytosis Spherocytes Sickle Cells Target Cells Tear Drop Cells Ovalocytes Stomatocytes [place] Bodies Kaitlynn Cells Bite Cells Crenated Cell Acanthocytes (Spur) Rouleaux Schistocytes Sodium Potassium Chloride Carbon Dioxide Anion Gap BUN Creatinine Estim Creat Clear Calc Est GFR (MDRD) Non-Af BUN/Creatinine Ratio Glucose Calcium Total Bilirubin Direct Bilirubin AST ALT Alkaline Phosphatase Total Protein Albumin Globulin Lipase Serum , Qual Urine Color Urine Clarity Urine pH Ur Specific Bellamy Urine Protein Urine Glucose (UA) Urine Ketones Urine Occult Blood Urine Nitrite Urine Bilirubin Urine Urobilinogen Ur Leukocyte Esterase Urine RBC Urine WBC Ur Squamous Epith Cells Urine Bacteria Hyaline Casts Urine Mucus Urine Yeast Radiography Diagnostic Testing: Clinical Impression(s) from Imaging Studies Abdomen/Pelvis CT 08/21/25 23:55 IMPRESSION: No acute intra-abdominal process. Reading Location: [facility] Discharge Plan Triage Chief Complaint: Abd Pain ED Provider: Lanre Puentes Dx/Rx/DC Orders Clinical Impression: Nonspecific abdominal pain, Gastroparesis, Hypertension, Bipolar disorder Instructions: Abdominal Pain Prescriptions: No Action Nurtec ODT 75 mg tablet,disintegrating 75 mg PO ONCE PRN (Reason: migraine headache) Rx Instructions: as a single dose Qulipta 60 mg tablet 60 mg PO QHS escitalopram oxalate [Lexapro] 20 mg Tablet 20 mg PO DAILY tizanidine 4 mg tablet 4 mg PO TID Patient Comments: PT STATES THAT THEY USUALLY TAKE ALL THREE TABLETS TOGETHER ONCE DAILY AT BEDTIME BECAUSE IT MAKES THEM DROWSY ( OF 10-28-23) metoclopramide HCl [Reglan] 5 mg tablet 5 mg PO Q6H PRN (Reason: nausea and vomiting) Qty: 20 0RF MAGIC MOUTH WASH (BMX) 180 mL suspension 5 - 10 ml PO Q6H PRN PRN (Reason: gastritis) Qty: 180 0RF Rx Instructions: diphenhydramine 12.5 mg/5 mL oral liquid 60 mL; aluminum-mag hydroxide-simethicone 400 mg-400 mg-40 mg/5 mL oral susp 60 mL; Lidocaine Viscous 2 % mucosal solution 60 mL; Per 180 mL pantoprazole 40 mg tablet,delayed release (DR/EC) 40 mg PO BID promethazine 25 mg tablet 25 mg PO TID PRN PRN (Reason: nausea/vomiting) oxycodone-acetaminophen [Percocet] 5-325 mg tablet 1 tab PO Q4H PRN (Reason: pain) Patient Comments: patient needs to get it filled, currently out but has not made it to her pharmacy to pick it up sucralfate 1 gram tablet 1 g PO BID olanzapine 10 mg tablet,disintegrating 10 mg PO QHS amlodipine 2.5 mg tablet 2.5 mg PO DAILY amoxicillin-pot clavulanate 875-125 mg tablet 1 tab PO BID 7 Days Qty: 14 0RF mirabegron [Myrbetriq] 50 mg tablet extended release 24 hr 50 mg PO DAILY dicyclomine 20 mg tablet 20 mg PO 4X/DAY PRN PRN (Reason: abdominal pain) Creon 12,000-38,000 -60,000 unit capsule,delayed release(DR/EC) 1 cap PO TID polyethylene glycol 3350 [Miralax] 17 gram/dose powder 17 g PO DAILY Qty: 510 0RF cephalexin 500 mg capsule 500 mg PO Q6 7 Days Qty: 28 0RF Primary Care Provider: Dean Varghese Referrals: Dean Varghese DO [Primary Care Provider, Medical] Activity Restrictions/Additional Instructions: Your workup this evening revealed no clinically significant lab findings and your CT scan showed no sign of intestinal infection such as abscess or bowel blockage or perforation. Please continue all of your home medications as directed by your doctor and follow-up with them for repeat evaluation Print Language: Czech Disposition Disposition: Home, Self Care Discharge Date/Time: 08/22/25 02:51
[2025-08-22 02:50] VITALS: BP 144/59; PULSE 79; RESP 18; TEMP 36.5; O2SAT 96
== END 2025-08-22 02:51 | disposition home or self-care (01) ==
PROVIDERS: Emergency Provider Emergency Medicine; Visit Provider Emergency Medicine
DX: R10.9 Unspecified abdominal pain (principal); F31.9 Bipolar disorder, unspecified; K31.84 Gastroparesis; F17.290 Nicotine dependence, other tobacco product, uncomplicated; E78.00 Pure hypercholesterolemia, unspecified; I10 Essential (primary) hypertension; K21.9 Gastro-esophageal reflux disease without esophagitis; E66.9 Obesity, unspecified
CPT/HCPCS: 74177; 80048; 80076; 81001; 83690; 84703; 85025; 96361; 96374; 96375; 96376; 99283; Q9967; A4216; J2405

== ENCOUNTER 2025-08-26 19:45 | Emergency (ER) | payer MEDICAID, SELFPAY ==
[2025-08-26 19:45] VITALS: BP 145/98; PULSE 79; RESP 18; TEMP 36.2; O2SAT 99; BMI 30.6
--- NOTE | 2025-08-26 20:02 | EX.ED.DYSGE1 ---
HPI History of Present Illness Chief Complaint: Flank Pain Detail of Chief Complaint: Left flank pain Informant: patient Narrative Narrative: Patient presents with left flank pain and dark urine that she has noticed for several days. Patient states the pain in her left flank just began today. She at times noticed some blood when she wipes and some blood in her urine. She has had prior hysterectomy. Also think she may have a yeast infection starting. Patient has history of kidney stones and UTIs. She has a urologist that she follows up with Dr. Montoya. [facility] Medical History Effusion, right knee Gastroparesis Pancreatitis Right knee pain Avulsion fracture of lateral malleolus of right fibula Left renal stone Smoker Bilateral renal stones Wears glasses Wears dentures Alcohol use Marijuana use History of renal disease Fatty liver High cholesterol Easy bruising Restless legs Syncope Gastric reflux Environmental and seasonal allergies Leg cramps History of edema History of echocardiogram History of stress test Cardiology follow-up encounter Hypertension Peptic ulcer of stomach Migraine Chronic interstitial cystitis Endometriosis Bipolar disorder Anxiety Depression Back pain Conversion disorder History of cervical cancer Kidney stone Fibromyalgia Home Medications ?Medication ?Instructions ?Recorded ?Last Taken ?Type escitalopram oxalate 20 mg tablet 20 mg PO DAILY DEPRESSION 09/22/21 10/27/23 History (Lexapro) tizanidine 4 mg tablet 4 mg PO TID MUSCLE SPASMS 10/28/23 10/27/23 History atogepant 60 mg tablet (Qulipta) 60 mg PO QHS 04/21/24 Unknown History rimegepant 75 mg disintegrating 75 mg PO ONCE PRN migraine headache 04/21/24 Unknown History tablet (Nurtec ODT) MAGIC MOUTH WASH (BMX) 180 mL 5 - 10 ml PO Q6H PRN PRN gastritis 11/04/24 Unknown Rx suspension #180 mL metoclopramide HCl 5 mg tablet 5 mg PO Q6H PRN nausea and 11/04/24 11/06/24 17:30 Rx (Reglan) vomiting #20 tabs oxycodone-acetaminophen 5 mg-325 1 tab PO Q4H PRN pain 11/06/24 Unknown History mg tablet (Percocet) pantoprazole 40 mg tablet,delayed 40 mg PO BID 11/06/24 Unknown History release promethazine 25 mg tablet 25 mg PO TID PRN PRN 11/06/24 Unknown History nausea/vomiting olanzapine 10 mg disintegrating 10 mg PO QHS 01/22/25 Unknown History tablet sucralfate 1 gram tablet 1 g PO BID 01/22/25 Unknown History mirabegron 50 mg tablet,extended 50 mg PO DAILY 02/03/25 Unknown History release 24 hr (Myrbetriq) dicyclomine 20 mg tablet 20 mg PO 4X/DAY PRN PRN abdominal 03/07/25 Unknown History pain vjaujo-[id number]-[id number] 1 cap PO TID 03/07/25 Unknown History 12,000-38,000-60,000 unit capsule,delayed rel (Creon) amlodipine 2.5 mg tablet 2.5 mg PO DAILY 07/13/25 Unknown History polyethylene glycol 3350 17 17 g PO DAILY #510 grams 07/18/25 Unknown Rx gram/dose oral powder (Miralax) cephalexin 500 mg capsule 500 mg PO Q6 7 days #28 CAPSULES 08/03/25 Unknown Rx amoxicillin 875 mg-potassium 1 tab PO BID 7 days #14 tabs 08/13/25 Unknown Rx clavulanate 125 mg tablet phenazopyridine 200 mg tablet 200 mg PO TID 6 doses #6 tabs 08/26/25 Unknown Rx (Pyridium) sulfamethoxazole 800 1 tab PO BID #14 tabs 08/26/25 Unknown Rx mg-trimethoprim 160 mg tablet (Bactrim DS) Allergy/AdvReac Type Severity Reaction Status Date / Time amitriptyline Allergy MUSCLE Verified 08/26/25 19:45 SPASMS Bleach (Sodium Hypochlorite) Allergy Hives Verified 08/26/25 19:45 droperidol Allergy Anaphylaxis Verified 08/26/25 19:45 ketorolac (From Toradol) Allergy Itching Verified 08/26/25 19:45 nitrofurantoin (From Allergy Anaphylaxis Verified 08/26/25 19:45 Macrodantin) NSAIDS (Non-Steroidal Allergy Other Verified 08/26/25 19:45 Anti-Inflamma oseltamivir (From Tamiflu) Allergy SOB Verified 08/26/25 19:45 doxycycline AdvReac Vomiting Verified 08/26/25 19:45 Family History Mother Hypertension Migraine Grandmother CVA (cerebral vascular accident) Grandfather Diabetes Father Myocardial infarction Surgical History History of cystoscopy S/P laparoscopic surgery History of hysterectomy Hx of cholecystectomy Social History household members: significant other housing: house Smoking Status: Current every day smoker tobacco type: e-cigarettes alcohol intake: current details: occasionally substance use type: does not use caffeine: Yes what type of physical activity do you participate in: walking frequency: 1-2 times per week seatbelt use: always do you feel safe at home: Yes additional social history: Single ROS ROS ED Review of Systems ROS Unobtainable: other Constitutional Constitutional ED: Reports lethargy; Denies chills, fever(s), sweats or weight loss Eyes Eyes: Denies blurry vision, change in vision or diplopia ENT ENT ED: Denies rhinorrhea or sore throat Cardiovascular Cardiovascular: Denies chest pain, orthopnea or racing heartbeat Respiratory/Chest Respiratory/Chest: Denies cough, dyspnea, dyspnea on exertion, orthopnea or sputum Gastrointestinal Gastrointestinal: Denies abdominal pain, diarrhea, nausea or vomiting Genitourinary Genitourinary ED: Reports dysuria and hematuria; Denies urinary frequency Musculoskeletal Musculoskeletal: Reports back pain; Denies arthralgias, myalgias or neck pain Integumentary Denies abscess, Abrasions or rash Neurologic Neurologic: Denies headache(s) or weakness Psychiatric Psychiatric: Denies anxiety, depression or suicidal thoughts Endocrine Endocrinology: Denies polydipsia, polyphagia or polyuria Hematologic/Lymphatic Hematologic/Lymphatic: Denies easy bleeding, easy bruising or lymphadenopathy Allergic/Immunologic Allergic/Immunologic ED: Denies mouth swelling, tongue swelling or urticaria EXAM Physical Exam Const Vital Signs: 08/26/25 19:45 08/26/25 21:45 Temperature 97.2 F L Temperature Source Temporal Pulse Rate 79 Respiratory Rate 18 Blood Pressure 145/98 H 144/98 H Blood Pressure Mean 113 113 Pulse Ox 99 97 Oxygen Delivery Method Room Air Room Air Positive well nourished and well developed General Appearance ED: well developed and NAD HEENT Reports TM's clear and moist mucous membranes normocephalic and atraumatic; Negative for trauma or tenderness Tympanic Membrane ED: Yes TM's clear Eyes PERRL and EOMs intact bilaterally General Eye ED: Negative for pale conjunctiva or scleral icterus Neck no lymphadenopathy, supple and no JVD General: Negative for tenderness Chest Wall inspection of chest normal and palpation of chest normal Chest: Negative for tenderness Resp normal respiratory effort and clear to auscultation bilaterally Effort and Inspection: Negative for respiratory distress or pain with movement Auscultation: Negative for rhonchi, wheezes or diminished lung sounds Cardio regular rate, regular rhythm, S1 normal heart sound, S2 normal heart sound and no murmurs Peripheral Pulses: pulses 2+ throughout GI normal to inspection, nondistended, normoactive bowel sounds, soft to palpation, non-distended and no masses GI Narrative: Mild suprapubic tenderness on palpation. There is no rebound, rigidity, or peritoneal signs. No mass palpated. She has some mild CVA tenderness on the left. Back/Spine no thoracic nor lumbar tenderness; Negative for no CVA tenderness Back/Spine Narrative: Mild CVA tenderness on the left. Extremity normal to inspection General Extremety ED: Negative for edema General Extremity: Negative for edema Neuro oriented x3, CN's II-XII intact bilaterally, no sensory deficits noted and gait normal Sensorium / Orientation: awake, alert, oriented to person, oriented to place and oriented to time Motor Exam: strength 5/5 throughout and strength abnormal Psych mental status grossly normal Skin no rashes or lesions noted and no wounds MDM MDM MDM Narrative Medical decision making narrative: Patient presents with dysuria as well as left flank pain. History of kidney stones. History of UTI. Clinically looks well. Apparently had multiple visits to the emergency department. I was able to review her last visit in August 14 send she had a CT scan of the abdomen pelvis that was unremarkable. Established. CBC with differential obtained showed a normal white count of 7.1 with hemoglobin 13. Urinalysis positive for UTI. Urine culture sent. Chemistries ordered and pending. Patient was medicated initially with morphine and Zofran. She was ordered Pyridium and p.o. Bactrim. Will start on Bactrim and Pyridium for home. She did request a second dose of pain medicine before she left and I ordered 4 more milligrams of morphine for home. Advised to keep her appointment with her urologist. Advised to return if worsening pain, fever, vomiting, or condition worsen anyway. Lab Data Attestation: I reviewed the patient's lab results. Labs: Laboratory Results - last 24 hr 08/26/25 08/26/25 20:22 21:00 WBC 7.1 RBC 4.32 Hgb 13.1 Hct 39.3 MCV 91.0 MCH 30.3 MCHC 33.3 RDW Std Deviation 44.6 H RDW Coeff of Romario 13.3 Plt Count TNP MPV 13.1 H Immature Gran % (Auto) 0.300 Neut % (Auto) 65.1 Lymph % (Auto) 28.6 [place] % (Auto) 5.5 Eos % (Auto) 0.4 Baso % (Auto) 0.1 Absolute Neuts (auto) 4.6 Absolute Lymphs (auto) 2.02 Nucleated RBC % 0 Differential Comment SCANNED Platelet Estimate ADEQUATE Sodium Cancelled Potassium Cancelled Chloride Cancelled Carbon Dioxide Cancelled Anion Gap Cancelled BUN Cancelled Creatinine Cancelled Estim Creat Clear Calc Cancelled Est GFR (MDRD) Non-Af Cancelled BUN/Creatinine Ratio Cancelled Glucose Cancelled Calcium Cancelled Urine Color Yellow Urine Clarity Cloudy Urine pH 7.0 Ur Specific Mode 1.010 Urine Protein 30 H Urine Glucose (UA) Normal Urine Ketones 5 H Urine Occult Blood 25 H Urine Nitrite Negative Urine Bilirubin Negative Urine Urobilinogen Normal Ur Leukocyte Esterase 500 H Urine RBC 0-5 SEEN Urine WBC 50-100 SEEN Ur Squamous Epith Cells 0-5 SEEN Urine Bacteria 2+ Urine Mucus 1+ Discharge Plan Triage Chief Complaint: Flank Pain ED Provider: Jm Ansari Dx/Rx/DC Orders Clinical Impression: UTI (urinary tract infection), Back pain Instructions: UTIs, ED Back Pain (Acute or Chronic) Prescriptions: New phenazopyridine [Pyridium] 200 mg tablet 200 mg PO TID Qty: 6 0RF sulfamethoxazole-trimethoprim [Bactrim DS] 800-160 mg tablet 1 tab PO BID Qty: 14 0RF No Action Nurtec ODT 75 mg tablet,disintegrating 75 mg PO ONCE PRN (Reason: migraine headache) Rx Instructions: as a single dose Qulipta 60 mg tablet 60 mg PO QHS escitalopram oxalate [Lexapro] 20 mg Tablet 20 mg PO DAILY tizanidine 4 mg tablet 4 mg PO TID Patient Comments: PT STATES THAT THEY USUALLY TAKE ALL THREE TABLETS TOGETHER ONCE DAILY AT BEDTIME BECAUSE IT MAKES THEM DROWSY ( OF 10-28-23) metoclopramide HCl [Reglan] 5 mg tablet 5 mg PO Q6H PRN (Reason: nausea and vomiting) Qty: 20 0RF MAGIC MOUTH WASH (BMX) 180 mL suspension 5 - 10 ml PO Q6H PRN PRN (Reason: gastritis) Qty: 180 0RF Rx Instructions: diphenhydramine 12.5 mg/5 mL oral liquid 60 mL; aluminum-mag hydroxide-simethicone 400 mg-400 mg-40 mg/5 mL oral susp 60 mL; Lidocaine Viscous 2 % mucosal solution 60 mL; Per 180 mL pantoprazole 40 mg tablet,delayed release (DR/EC) 40 mg PO BID promethazine 25 mg tablet 25 mg PO TID PRN PRN (Reason: nausea/vomiting) oxycodone-acetaminophen [Percocet] 5-325 mg tablet 1 tab PO Q4H PRN (Reason: pain) Patient Comments: patient needs to get it filled, currently out but has not made it to her pharmacy to pick it up sucralfate 1 gram tablet 1 g PO BID olanzapine 10 mg tablet,disintegrating 10 mg PO QHS amlodipine 2.5 mg tablet 2.5 mg PO DAILY amoxicillin-pot clavulanate 875-125 mg tablet 1 tab PO BID 7 Days Qty: 14 0RF mirabegron [Myrbetriq] 50 mg tablet extended release 24 hr 50 mg PO DAILY dicyclomine 20 mg tablet 20 mg PO 4X/DAY PRN PRN (Reason: abdominal pain) Creon 12,000-38,000 -60,000 unit capsule,delayed release(DR/EC) 1 cap PO TID polyethylene glycol 3350 [Miralax] 17 gram/dose powder 17 g PO DAILY Qty: 510 0RF cephalexin 500 mg capsule 500 mg PO Q6 7 Days Qty: 28 0RF Primary Care Provider: Dean Varghese Referrals: Dean Varghese DO [Primary Care Provider, Medical] Activity Restrictions/Additional Instructions: Follow-up with your urologist Print Language: Syriac Disposition Disposition: Home, Self Care
[2025-08-26 20:41] LABS: Color, Urine Yellow (Yellow); Glucose, Dipstick Normal (Normal); Ketone-Dipstick 5 mg/dl (Negative); Leukocyte Esterase-Dipstick 500 /ul (Negative); Nitrite-Dipstick Negative (Negative); Occult Blood-Urine 25 /ul (Negative); Protein-Dipstick 30 mg/dl (Negative); Specific Gravity, Urine 1.010 (1.002-1.030); Urine Bilirubin Dipstick Negative (Negative)
[2025-08-26 20:54] LABS: Mucous, Urine 1+ /hpf (<or=2+); Red Blood Cells-Urine 0-5 SEEN /hpf (0-5); Squamous Epithelial Cells - UA 0-5 SEEN /hpf (5-10)
[2025-08-26 21:11] LABS: Hematocrit 39.3 % (37-47); Hemoglobin 13.1 g/dL (12.0-15.0); Immature Granulocytes Count 0.020 X10^3/uL (0.0-0.0); Mean Corp Hgb Conc 33.3 g/dL (32-36); Mean Corpuscular Volume 91.0 fL (81-99); Mean Platelet Vol. 13.1 fl (6.2-12.0); NRBC Flagged by Analyzer 0 % (0-5); POSITIVE COUNT YES; RBC Distribution Width CV 13.3 % (11.6-14.6); RBC Distribution Width SD 44.6 fl (35.1-43.9); Red Blood Count 4.32 M/mm3 (4.2-5.4); White Blood Count 7.1 K/mm3 (4.4-11.0)
[2025-08-26] MEDS: Smz/Tmp Ds Tablet 1 TABLET PO (21:29)
[2025-08-26 21:45] VITALS: BP 144/98; O2SAT 97
[2025-08-26 22:04] LABS: Differential Indicated SCAN CRITERIA MET
[2025-08-26 22:05] LABS: Differential Comment SCANNED
[2025-08-26 22:23] VITALS: BP 144/98; PULSE 88; RESP 16; TEMP 36.6; O2SAT 97
[2025-08-26 22:43] LABS: Anion Gap 12 (5-15); BUN 10 mg/dL (4-19); BUN/Creat Ratio 13.7 RATIO (10-20); Calcium,Total 9.6 mg/dL (7.6-11.0); Carbon Dioxide 21.2 mmol/L (21.0-32.0); Chloride 106 mmol/L (98-108); Estimated Creatinine Clearance 109.64 ml/min (50-250); Glucose 106 mg/dL (70-99); Potassium 4.1 mmol/L (3.3-5.1)
[2025-08-26 22:48] VITALS: BP 144/98; PULSE 88; RESP 16; TEMP 36.6; O2SAT 97
== END 2025-08-26 22:49 | disposition home or self-care (01) ==
PROVIDERS: Emergency Provider Emergency Medicine; Visit Provider Emergency Medicine
DX: N39.0 Urinary tract infection, site not specified (principal); I10 Essential (primary) hypertension; E78.00 Pure hypercholesterolemia, unspecified; M54.9 Dorsalgia, unspecified; R10.A2 Flank pain, left side; F17.290 Nicotine dependence, other tobacco product, uncomplicated; Z90.710 Acquired absence of both cervix and uterus; Z87.442 Personal history of urinary calculi
CPT/HCPCS: 80048; 81001; 85025; 87086; 87088; 96372; 96374; 99284; A4216

== ENCOUNTER 2025-08-27 23:17 | Emergency (ER) | payer MEDICAID, SELFPAY ==
[2025-08-27 23:18] VITALS: BP 168/108; PULSE 98; RESP 18; TEMP 37.7; O2SAT 99; BMI 31.0
[2025-08-27 23:22] VITALS: BP 168/108; PULSE 98; RESP 18; TEMP 37.7; O2SAT 99
--- NOTE | 2025-08-27 23:42 | CT_ITS ---
PROCEDURE: CT/Abdomen/Pelvis W IV Cont ONLY
[2025-08-27 23:58] LABS: Mucous, Urine 0 SEEN /hpf (<or=2+); Red Blood Cells-Urine 0 SEEN /hpf (0-5)
[2025-08-28] LABS: Color, Urine Yellow (Yellow); Glucose, Dipstick Normal (Normal); Ketone-Dipstick Negative (Negative); Leukocyte Esterase-Dipstick 100 /ul (Negative); Nitrite-Dipstick Positive (Negative); Occult Blood-Urine Negative /ul (Negative); Protein-Dipstick Negative (Negative); Specific Gravity, Urine 1.010 (1.002-1.030); Urine Bilirubin Dipstick Negative (Negative)
[2025-08-28] MEDS: 0.9% Normal Saline (1000mL) 1,000 ML 999 ML IV (00:09)
[2025-08-28 00:22] VITALS: BP 177/102; PULSE 82; RESP 15; TEMP 36.9; O2SAT 97
[2025-08-28 00:35] LABS: Squamous Epithelial Cells - UA 5-10 SEEN /hpf (5-10)
--- NOTE | 2025-08-28 00:40 | EX.ED.DYSGE1 ---
HPI History of Present Illness Chief Complaint: Flank Pain Informant: patient Narrative Narrative: Patient is a 35-year-old female with past medical history of hypertension hyperlipidemia gastroparesis and bipolar disorder. She was seen yesterday secondary to back pain and diagnosed with a UTI. The urine was sent for culture and she was started on Bactrim. Patient states that today she has developed a fever and has noticed some increasing back pain. She states has been no trauma. She denies any loss of bowel or bladder control or IV drug use. She states because of the worsening pain and fever at home she was concerned that the infection was worsening and therefore comes in for evaluation [facility] Medical History Effusion, right knee Gastroparesis Pancreatitis Right knee pain Avulsion fracture of lateral malleolus of right fibula Left renal stone Smoker Bilateral renal stones Wears glasses Wears dentures Alcohol use Marijuana use History of renal disease Fatty liver High cholesterol Easy bruising Restless legs Syncope Gastric reflux Environmental and seasonal allergies Leg cramps History of edema History of echocardiogram History of stress test Cardiology follow-up encounter Hypertension Peptic ulcer of stomach Migraine Chronic interstitial cystitis Endometriosis Bipolar disorder Anxiety Depression Back pain Conversion disorder History of cervical cancer Kidney stone Fibromyalgia Home Medications ?Medication ?Instructions ?Recorded ?Last Taken ?Type escitalopram oxalate 20 mg tablet 20 mg PO DAILY DEPRESSION 09/22/21 10/27/23 History (Lexapro) tizanidine 4 mg tablet 4 mg PO TID MUSCLE SPASMS 10/28/23 10/27/23 History atogepant 60 mg tablet (Qulipta) 60 mg PO QHS 04/21/24 Unknown History rimegepant 75 mg disintegrating 75 mg PO ONCE PRN migraine headache 04/21/24 Unknown History tablet (Nurtec ODT) metoclopramide HCl 5 mg tablet 5 mg PO Q6H PRN nausea and 11/04/24 11/06/24 17:30 Rx (Reglan) vomiting #20 tabs oxycodone-acetaminophen 5 mg-325 1 tab PO Q4H PRN pain 11/06/24 Unknown History mg tablet (Percocet) pantoprazole 40 mg tablet,delayed 40 mg PO BID 11/06/24 Unknown History release olanzapine 10 mg disintegrating 10 mg PO QHS 01/22/25 Unknown History tablet mirabegron 50 mg tablet,extended 50 mg PO DAILY 02/03/25 Unknown History release 24 hr (Myrbetriq) dicyclomine 20 mg tablet 20 mg PO 4X/DAY PRN PRN abdominal 03/07/25 Unknown History pain [id number] 1 cap PO TID 03/07/25 Unknown History 12,000-38,000-60,000 unit capsule,delayed rel (Creon) amlodipine 2.5 mg tablet 2.5 mg PO DAILY 07/13/25 Unknown History polyethylene glycol 3350 17 17 g PO DAILY #510 grams 07/18/25 Unknown Rx gram/dose oral powder (Miralax) phenazopyridine 200 mg tablet 200 mg PO TID 6 doses #6 tabs 08/26/25 Unknown Rx (Pyridium) meloxicam 7.5 mg tablet 7.5 mg PO DAILY pain 08/27/25 Unknown History nortriptyline 10 mg capsule 10 mg PO QHS 08/27/25 Unknown History Allergy/AdvReac Type Severity Reaction Status Date / Time amitriptyline Allergy MUSCLE Verified 08/27/25 23:18 SPASMS Bleach (Sodium Hypochlorite) Allergy Hives Verified 08/27/25 23:18 droperidol Allergy Anaphylaxis Verified 08/27/25 23:18 ketorolac (From Toradol) Allergy Itching Verified 08/27/25 23:18 nitrofurantoin (From Allergy Anaphylaxis Verified 08/27/25 23:18 Macrodantin) NSAIDS (Non-Steroidal Allergy Other Verified 08/27/25 23:18 Anti-Inflamma oseltamivir (From Tamiflu) Allergy SOB Verified 08/27/25 23:18 doxycycline AdvReac Vomiting Verified 08/27/25 23:18 Family History Mother Hypertension Migraine Grandmother CVA (cerebral vascular accident) Grandfather Diabetes Father Myocardial infarction Surgical History History of cystoscopy S/P laparoscopic surgery History of hysterectomy Hx of cholecystectomy Social History household members: significant other housing: house Smoking Status: Current every day smoker tobacco type: e-cigarettes alcohol intake: current details: occasionally substance use type: does not use caffeine: Yes what type of physical activity do you participate in: walking frequency: 1-2 times per week seatbelt use: always do you feel safe at home: Yes additional social history: Single ROS ROS ED Constitutional Constitutional ED: Reports fever(s) ENT ENT ED: Denies rhinorrhea or sore throat Cardiovascular Cardiovascular: Denies chest pain Gastrointestinal Gastrointestinal: Reports abdominal pain and nausea; Denies diarrhea or vomiting Genitourinary Genitourinary ED: Reports dysuria Musculoskeletal Musculoskeletal: Reports back pain Integumentary Denies rash Hematologic/Lymphatic Hematologic/Lymphatic: Denies easy bleeding or easy bruising EXAM Physical Exam Const Vital Signs: 08/27/25 23:18 08/27/25 23:22 08/28/25 00:22 Temperature 99.8 F H 99.8 F H 98.5 F Temperature Source Oral Oral Oral Pulse Rate 98 98 82 Respiratory Rate 18 18 15 Blood Pressure 168/108 H 168/108 H 177/102 H Blood Pressure Mean 128 128 127 Pulse Ox 99 99 97 Oxygen Delivery Method Room Air Room Air Room Air 08/28/25 01:00 08/28/25 02:47 Temperature 98.5 F 98.5 F Temperature Source Oral Pulse Rate 85 90 Respiratory Rate 16 16 Blood Pressure 179/98 H 165/105 H Blood Pressure Mean 125 125 Pulse Ox 97 98 Oxygen Delivery Method Room Air Positive well nourished, well developed and obese General Appearance ED: well developed; Negative for pallor Nutritional Appearance: obese HEENT HEENT Narrative: Normocephalic atraumatic Eyes PERRL and EOMs intact bilaterally General Eye ED: Negative for scleral icterus Neck supple Resp normal respiratory effort and clear to auscultation bilaterally Cardio regular rate and regular rhythm Rate: other Other Details: Heart is regular rate and rhythm without murmurs rubs or gallops Radial and carotid pulses are equal and symmetric GI non-distended and no masses GI Narrative: Abdomen is soft and nondistended with hypoactive bowel sounds There is mild diffuse pain with palpation without voluntary guarding or rigidity or pulsatile mass No organomegaly noted Auscultation: hypoactive bowel sounds Palpation: soft Back/Spine Back/Spine Narrative: No bony deformity of thoracic or lumbar spine There is bilateral paralumbar tenderness to palpation No CVA pain noted No overlying soft tissue changes to suggest trauma or infection Extremity normal to inspection Neuro oriented x3, CN's II-XII intact bilaterally and no sensory deficits noted Sensorium / Orientation: alert Motor Exam: strength 5/5 throughout Psych Psych Narrative: Patient has a flat affect Skin no rashes or lesions noted and no wounds General Skin Exam: Negative for jaundice or pallor MDM MDM MDM Narrative Medical decision making narrative: Patient arrived to the ER hypertensive but has a past medical history of this otherwise with stable vitals. She is technically afebrile as her temperature is under 100.4. With the patient reporting fever at home as well as increasing pain there is concern that she is developing a systemic urinary tract infection or acute pyelonephritis. Therefore elected to perform repeat laboratory studies with a CT scan with IV contrast. Patient's white count is normal at 6.1 there is no left shift as her neutrophil count is 3.7 lactic acid is also normal at 1.5. She has no findings of acute kidney injury as her creatinine is normal. Her urine still shows signs of infection but overall it is slightly improved when compared to previous day as there is now less white blood cells present. The patient CT scan of the abdomen pelvis also showed no fat stranding around the kidney to suggest acute pyelonephritis or findings of kidney stone. Without any antipyretic medication provide in the ER the temperature improved to normal at 98.5. Therefore at this time as physical exam and workup are not showing signs of systemic infection/sepsis or acute kidney injury I do not feel there is need for admission to the hospital or further workup and she is otherwise safe for discharge History & Record Review Discussion w/independent historian: Patient Lab Data Attestation: I reviewed the patient's lab results. Labs: Laboratory Results - last 24 hr 08/27/25 08/28/25 08/28/25 23:50 00:04 01:50 WBC 6.1 RBC 4.81 Hgb 14.8 Hct 44.1 MCV 91.7 MCH 30.8 MCHC 33.6 RDW Std Deviation 44.6 H RDW Coeff of Romario 13.2 Plt Count 236 MPV 12.6 H Immature Gran % (Auto) 0.300 Neut % (Auto) 60.3 Lymph % (Auto) 32.2 [place] % (Auto) 5.2 Eos % (Auto) 1.8 Baso % (Auto) 0.2 Absolute Neuts (auto) 3.7 Absolute Lymphs (auto) 1.98 Nucleated RBC % 0 Sodium Cancelled 137 Potassium Cancelled 4.7 Chloride Cancelled 105 Carbon Dioxide Cancelled 18.6 L Anion Gap Cancelled 13 BUN Cancelled 9 Creatinine Cancelled 0.83 Estim Creat Clear Calc 94.48 Est GFR (MDRD) Non-Af Cancelled 95 BUN/Creatinine Ratio Cancelled 10.7 Glucose Cancelled 110 H Lactic Acid 1.5 Calcium Cancelled 9.2 Procalcitonin 0.16 H Urine Color Yellow Urine Clarity Clear Urine pH 7.0 Ur Specific [place] 1.010 Urine Protein Negative Urine Glucose (UA) Normal Urine Ketones Negative Urine Occult Blood Negative Urine Nitrite Positive H Urine Bilirubin Negative Urine Urobilinogen 1 H Ur Leukocyte Esterase 100 H Urine RBC 0 SEEN Urine WBC 5-10 SEEN Ur Squamous Epith Cells 5-10 SEEN Urine Bacteria 2+ Urine Mucus 0 SEEN Radiography Diagnostic Testing: Clinical Impression(s) from Imaging Studies Abdomen/Pelvis CT 08/27/25 23:42 IMPRESSION: Moderate amount of stool within the right side of the colon. Mild wall thickening of the distal descending and sigmoid colon may represent mild colitis. Please correlate clinically. Fatty liver, unchanged. Cholecystectomy and hysterectomy, unchanged. Reading Location: [facility] Discharge Plan Triage Chief Complaint: Flank Pain ED Provider: Lanre Puentes Dx/Rx/DC Orders Clinical Impression: UTI (urinary tract infection), Gastroparesis, Hypertension, Hyperlipidemia, Bipolar disorder Instructions: UTIs Prescriptions: No Action Nurtec ODT 75 mg tablet,disintegrating 75 mg PO ONCE PRN (Reason: migraine headache) Rx Instructions: as a single dose Qulipta 60 mg tablet 60 mg PO QHS escitalopram oxalate [Lexapro] 20 mg Tablet 20 mg PO DAILY tizanidine 4 mg tablet 4 mg PO TID Patient Comments: PT STATES THAT THEY USUALLY TAKE ALL THREE TABLETS TOGETHER ONCE DAILY AT BEDTIME BECAUSE IT MAKES THEM DROWSY ( OF 10-28-23) metoclopramide HCl [Reglan] 5 mg tablet 5 mg PO Q6H PRN (Reason: nausea and vomiting) Qty: 20 0RF pantoprazole 40 mg tablet,delayed release (DR/EC) 40 mg PO BID oxycodone-acetaminophen [Percocet] 5-325 mg tablet 1 tab PO Q4H PRN (Reason: pain) Patient Comments: patient needs to get it filled, currently out but has not made it to her pharmacy to pick it up olanzapine 10 mg tablet,disintegrating 10 mg PO QHS amlodipine 2.5 mg tablet 2.5 mg PO DAILY mirabegron [Myrbetriq] 50 mg tablet extended release 24 hr 50 mg PO DAILY dicyclomine 20 mg tablet 20 mg PO 4X/DAY PRN PRN (Reason: abdominal pain) Creon 12,000-38,000 -60,000 unit capsule,delayed release(DR/EC) 1 cap PO TID polyethylene glycol 3350 [Miralax] 17 gram/dose powder 17 g PO DAILY Qty: 510 0RF phenazopyridine [Pyridium] 200 mg tablet 200 mg PO TID Qty: 6 0RF meloxicam 7.5 mg tablet 7.5 mg PO DAILY nortriptyline 10 mg capsule 10 mg PO QHS Primary Care Provider: Dean Varghese Referrals: Dean Varghese DO [Primary Care Provider, Medical] Activity Restrictions/Additional Instructions: Please continue the Bactrim/antibiotic that was prescribed for you yesterday. Your urine sample does show slight improvement compared to the previous sample and the rest of your workup reveals no signs of systemic infection/sepsis or kidney damage. Your CT scan also reveals no signs of pyelonephritis or kidney stone. Your urine culture is still pending and therefore if the medication needs changed you will be notified otherwise no contact indicates that you are on the proper antibiotic. Return to the ER should you have any further concerns Print Language: Georgian Disposition Disposition: Home, Self Care Discharge Date/Time: 08/28/25 02:47
[2025-08-28 00:48] LABS: Hematocrit 44.1 % (37-47); Hemoglobin 14.8 g/dL (12.0-15.0); Immature Granulocytes Count 0.020 X10^3/uL (0.0-0.0); Mean Corp Hgb Conc 33.6 g/dL (32-36); Mean Corpuscular Volume 91.7 fL (81-99); Mean Platelet Vol. 12.6 fl (6.2-12.0); NRBC Flagged by Analyzer 0 % (0-5); Platelet Count 236 K/mm3 (150-450); RBC Distribution Width CV 13.2 % (11.6-14.6); RBC Distribution Width SD 44.6 fl (35.1-43.9); Red Blood Count 4.81 M/mm3 (4.2-5.4); White Blood Count 6.1 K/mm3 (4.4-11.0)
[2025-08-28 01:00] VITALS: BP 179/98; PULSE 85; RESP 16; TEMP 36.9; O2SAT 97
[2025-08-28 01:29] LABS: Procalcitonin 0.16 ng/mL (<=0.10)
[2025-08-28 02:13] LABS: Anion Gap 13 (5-15); BUN 9 mg/dL (4-19); BUN/Creat Ratio 10.7 RATIO (10-20); Calcium,Total 9.2 mg/dL (7.6-11.0); Carbon Dioxide 18.6 mmol/L (21.0-32.0); Chloride 105 mmol/L (98-108); Estimated Creatinine Clearance 94.48 ml/min (50-250); Glucose 110 mg/dL (70-99); Potassium 4.7 mmol/L (3.3-5.1)
[2025-08-28 02:47] VITALS: BP 165/105; PULSE 90; RESP 16; TEMP 36.9; O2SAT 98
== END 2025-08-28 02:47 | disposition home or self-care (01) ==
PROVIDERS: Emergency Provider Emergency Medicine; Visit Provider Emergency Medicine
DX: N39.0 Urinary tract infection, site not specified (principal); F31.9 Bipolar disorder, unspecified; I10 Essential (primary) hypertension; K31.84 Gastroparesis; E78.00 Pure hypercholesterolemia, unspecified; F17.290 Nicotine dependence, other tobacco product, uncomplicated
CPT/HCPCS: 36415; 74177; 80048; 81001; 83605; 84145; 85025; 96361; 96365; 96366; 96375; 99284; Q9967; A4216; J2405

== ENCOUNTER 2025-08-31 20:49 | Emergency (ER) | payer MEDICAID, SELFPAY ==
[2025-08-31 20:49] VITALS: BP 146/99; PULSE 120; RESP 16; TEMP 36.3; O2SAT 99
[2025-08-31 21:25] LABS: Hematocrit 41.0 % (37-47); Hemoglobin 14.0 g/dL (12.0-15.0); Immature Granulocytes Count 0.010 X10^3/uL (0.0-0.0); Mean Corp Hgb Conc 34.1 g/dL (32-36); Mean Corpuscular Volume 90.5 fL (81-99); Mean Platelet Vol. 11.6 fl (6.2-12.0); NRBC Flagged by Analyzer 0 % (0-5); Platelet Count 261 K/mm3 (150-450); RBC Distribution Width CV 13.6 % (11.6-14.6); RBC Distribution Width SD 44.7 fl (35.1-43.9); Red Blood Count 4.53 M/mm3 (4.2-5.4); White Blood Count 6.8 K/mm3 (4.4-11.0)
[2025-08-31 21:46] LABS: AST(SGOT) 62 U/L (<=31); Alanine Aminotransfer ALT/SGPT 51 U/L (<=34); Albumin, Serum 5.0 g/dL (3.5-5.0); Alkaline Phosphatase 193 U/L (35-104); Anion Gap 17 (5-15); BUN 10 mg/dL (4-19); BUN/Creat Ratio 9.1 RATIO (10-20); Calcium,Total 10.5 mg/dL (7.6-11.0); Carbon Dioxide 19.2 mmol/L (21.0-32.0); Chloride 100 mmol/L (98-108); Estimated Creatinine Clearance 72.73 ml/min (50-250); Globulin 3.4 g/dL (2.2-4.2); Glucose 122 mg/dL (70-99); Lipase 23 U/L (13-75); Potassium 3.7 mmol/L (3.3-5.1)
--- NOTE | 2025-08-31 22:14 | EX.ED.DYSGE1 ---
HPI History of Present Illness Chief Complaint: Nausea/Vomiting Detail of Chief Complaint: Reported nausea vomiting left upper quadrant pain Informant: patient Narrative Narrative: Patient was seen August 28. She was seen by Dr. Puentes. She also was seen by Dr. Mott on August [address] Puentes on August 22 and August 16. Those notes were reviewed. Her workup for those visits was unremarkable. On 28 August she was diagnosed with UTI. That would not explain left upper quadrant pain and reason she presents. She informs she is here from left upper quadrant pain. She told triage nurse that she had nausea and vomiting. Patient is not a good informant and her story has inconsistency. Patient denies fever, chills night sweats. Patient states she has history of pancreatitis. She had pancreatitis once. She is status postcholecystectomy. She does not know the etiology of her pancreatitis. She denies rhinorrhea, congestion, postnasal drainage, sore throat, cough or shortness of breath. She denies chest pain, pressure, tightness or heaviness. She does endorse the left upper quadrant pain. She denies black or maroon-colored stool. She denies any urologic symptoms there is no history of renal ureterolithiasis. Prior similar symptoms: No Recent Illness/Hospitalization: Yes [facility] Medical History Effusion, right knee Gastroparesis Pancreatitis Right knee pain Avulsion fracture of lateral malleolus of right fibula Left renal stone Smoker Bilateral renal stones Wears glasses Wears dentures Alcohol use Marijuana use History of renal disease Fatty liver High cholesterol Easy bruising Restless legs Syncope Gastric reflux Environmental and seasonal allergies Leg cramps History of edema History of echocardiogram History of stress test Cardiology follow-up encounter Hypertension Peptic ulcer of stomach Migraine Chronic interstitial cystitis Endometriosis Bipolar disorder Anxiety Depression Back pain Conversion disorder History of cervical cancer Kidney stone Fibromyalgia Home Medications ?Medication ?Instructions ?Recorded ?Last Taken ?Type escitalopram oxalate 20 mg tablet 20 mg PO DAILY DEPRESSION 09/22/21 10/27/23 History (Lexapro) tizanidine 4 mg tablet 4 mg PO TID MUSCLE SPASMS 10/28/23 10/27/23 History atogepant 60 mg tablet (Qulipta) 60 mg PO QHS 04/21/24 Unknown History rimegepant 75 mg disintegrating 75 mg PO ONCE PRN migraine headache 04/21/24 Unknown History tablet (Nurtec ODT) metoclopramide HCl 5 mg tablet 5 mg PO Q6H PRN nausea and 11/04/24 11/06/24 17:30 Rx (Reglan) vomiting #20 tabs oxycodone-acetaminophen 5 mg-325 1 tab PO Q4H PRN pain 11/06/24 Unknown History mg tablet (Percocet) pantoprazole 40 mg tablet,delayed 40 mg PO BID 11/06/24 Unknown History release olanzapine 10 mg disintegrating 10 mg PO QHS 01/22/25 Unknown History tablet mirabegron 50 mg tablet,extended 50 mg PO DAILY 02/03/25 Unknown History release 24 hr (Myrbetriq) dicyclomine 20 mg tablet 20 mg PO 4X/DAY PRN PRN abdominal 03/07/25 Unknown History pain zhgquy-qumthanx-ooselpc(pork)12,000-38,000-60,000 1 cap PO TID 03/07/25 Unknown History unit capsule,del rel (Creon) amlodipine 2.5 mg tablet 2.5 mg PO DAILY 07/13/25 Unknown History polyethylene glycol 3350 17 17 g PO DAILY #510 grams 07/18/25 Unknown Rx gram/dose oral powder (Miralax) phenazopyridine 200 mg tablet 200 mg PO TID 6 doses #6 tabs 08/26/25 Unknown Rx (Pyridium) meloxicam 7.5 mg tablet 7.5 mg PO DAILY pain 08/27/25 Unknown History nortriptyline 10 mg capsule 10 mg PO QHS 08/27/25 Unknown History Allergy/AdvReac Type Severity Reaction Status Date / Time amitriptyline Allergy MUSCLE Verified 08/31/25 20:50 SPASMS Bleach (Sodium Hypochlorite) Allergy Hives Verified 08/31/25 20:50 droperidol Allergy Anaphylaxis Verified 08/31/25 20:50 ketorolac (From Toradol) Allergy Itching Verified 08/31/25 20:50 nitrofurantoin (From Allergy Anaphylaxis Verified 08/31/25 20:50 Macrodantin) NSAIDS (Non-Steroidal Allergy Other Verified 08/31/25 20:50 Anti-Inflamma oseltamivir (From Tamiflu) Allergy SOB Verified 08/31/25 20:50 doxycycline AdvReac Vomiting Verified 08/31/25 20:50 Family History Mother Hypertension Migraine Grandmother CVA (cerebral vascular accident) Grandfather Diabetes Father Myocardial infarction Surgical History History of cystoscopy S/P laparoscopic surgery History of hysterectomy Hx of cholecystectomy Social History household members: significant other housing: house Smoking Status: Current every day smoker tobacco type: e-cigarettes alcohol intake: current details: occasionally substance use type: does not use caffeine: Yes what type of physical activity do you participate in: walking frequency: 1-2 times per week seatbelt use: always do you feel safe at home: Yes additional social history: Single ROS ROS ED Constitutional Constitutional ED: Denies chills, fever(s), subjective, sweats or weight loss Eyes Eyes: Denies blurry vision, change in vision or diplopia ENT ENT ED: Denies ear pain, rhinorrhea or sore throat Cardiovascular Cardiovascular: Denies chest pain, orthopnea, palpitations, paroxysmal nocturnal dyspnea or racing heartbeat Respiratory/Chest Respiratory/Chest: Denies cough, dyspnea, dyspnea on exertion, orthopnea, paroxysmal nocturnal dyspnea or sputum Gastrointestinal Gastrointestinal: Reports abdominal pain; Denies constipation, diarrhea, melena or vomiting Genitourinary Genitourinary ED: Denies dysuria, hematuria or urinary frequency Musculoskeletal Musculoskeletal: Denies arthralgias, back pain, myalgias or neck pain Integumentary Denies rash Neurologic Neurologic: Denies paresthesias or weakness Psychiatric Psychiatric: Denies anxiety or depression Endocrine Endocrinology: Denies cold intolerance or heat intolerance Hematologic/Lymphatic Hematologic/Lymphatic: Reports systems reviewed and no addt'l complaints, except as documented EXAM Physical Exam Const Vital Signs: 08/31/25 20:49 Temperature 97.3 F L Temperature Source Temporal Pulse Rate 120 H Respiratory Rate 16 Blood Pressure 146/99 H Blood Pressure Mean 114 Pulse Ox 99 Oxygen Delivery Method Room Air Positive well nourished and well developed Constitutional Narrative: Heart rate as of 18 is 80. General Appearance ED: well developed and NAD; Negative for cyanotic, diaphoretic or pallor HEENT Reports moist mucous membranes HEENT Narrative: Head is atraumatic and normocephalic. Ears are normal. Nares are patent. Eyes PERRL and EOMs intact bilaterally General Eye ED: Negative for pale conjunctiva or scleral icterus Neck no lymphadenopathy, supple and no JVD Chest Wall inspection of chest normal and palpation of chest normal Resp normal respiratory effort and clear to auscultation bilaterally Cardio regular rate, regular rhythm, S1 normal heart sound, S2 normal heart sound and no murmurs GI normal to inspection, nondistended, normoactive bowel sounds, non-tender, non-distended and no masses; Negative for hepatosplenomegaly GI Narrative: With distraction patient has no left upper quadrant abdominal pain. Without distraction complains of pain without guarding. Back/Spine no CVA tenderness Extremity normal to inspection General Extremety ED: Negative for edema or tenderness General Extremity: Negative for edema Neuro oriented x3 and CN's II-XII intact bilaterally Sensorium / Orientation: alert Psych mental status grossly normal Skin no rashes or lesions noted, no wounds and skin turgor normal General Skin Exam: Negative for jaundice or pallor MDM MDM MDM Narrative Medical decision making narrative: Patient's had numerous visits. Her differential diagnoses include pancreatitis, abdominal pain of unknown etiology, possible peptic ulcer disease. Will obtain CBC to assess H&H and compare to prior. Liver enzymes and lipase to rule out biliary disease/pancreatitis. Lab Data Attestation: I reviewed the patient's lab results. Lab results narrative: CBC is normal. Comprehensive metabolic panel reveals slight decrease in CO2 of 19.2 with an anion gap of 17. This is not abnormal for patient based on review of prior labs over the past 2 weeks. Glucose elevated 122. AST and ALT are elevated 62 and 51 respectively. They have been elevated in the past and recently. Alkaline phosphatase slight elevated as well. Labs: Laboratory Results - last 24 hr 08/31/25 21:18 WBC 6.8 RBC 4.53 Hgb 14.0 Hct 41.0 MCV 90.5 MCH 30.9 MCHC 34.1 RDW Std Deviation 44.7 H RDW Coeff of Romario 13.6 Plt Count 261 MPV 11.6 Immature Gran % (Auto) 0.100 Neut % (Auto) 59.2 Lymph % (Auto) 34.1 [place] % (Auto) 6.5 Eos % (Auto) 0.0 Baso % (Auto) 0.1 Absolute Neuts (auto) 4.0 Absolute Lymphs (auto) 2.32 Nucleated RBC % 0 Sodium 136 Potassium 3.7 Chloride 100 Carbon Dioxide 19.2 L Anion Gap 17 H BUN 10 Creatinine 1.06 Estim Creat Clear Calc 72.73 Est GFR (MDRD) Non-Af 70 BUN/Creatinine Ratio 9.1 L Glucose 122 H Calcium 10.5 Total Bilirubin 0.47 AST 62 H ALT 51 H Alkaline Phosphatase 193 H Total Protein 8.4 Albumin 5.0 Globulin 3.4 Albumin/Globulin Ratio 1.5 Lipase 23 Treatment and Re-Evaluation :: Since patient has a benign exam her labs are unchanged she will be discharged to home to follow-up with her doctor. In my opinion no advanced imaging is indicated. Discharge Plan Triage Chief Complaint: Nausea/Vomiting ED Provider: Rayray Irving Dx/Rx/DC Orders Clinical Impression: Abdominal pain, left upper quadrant, Hypertension, Hyperlipidemia, Bipolar disorder, UTI (urinary tract infection) Instructions: ED Abdominal Pain Unkn Cause Fem Prescriptions: No Action Nurtec ODT 75 mg tablet,disintegrating 75 mg PO ONCE PRN (Reason: migraine headache) Rx Instructions: as a single dose Qulipta 60 mg tablet 60 mg PO QHS escitalopram oxalate [Lexapro] 20 mg Tablet 20 mg PO DAILY tizanidine 4 mg tablet 4 mg PO TID Patient Comments: PT STATES THAT THEY USUALLY TAKE ALL THREE TABLETS TOGETHER ONCE DAILY AT BEDTIME BECAUSE IT MAKES THEM DROWSY ( OF 10-28-23) metoclopramide HCl [Reglan] 5 mg tablet 5 mg PO Q6H PRN (Reason: nausea and vomiting) Qty: 20 0RF pantoprazole 40 mg tablet,delayed release (DR/EC) 40 mg PO BID oxycodone-acetaminophen [Percocet] 5-325 mg tablet 1 tab PO Q4H PRN (Reason: pain) Patient Comments: patient needs to get it filled, currently out but has not made it to her pharmacy to pick it up olanzapine 10 mg tablet,disintegrating 10 mg PO QHS amlodipine 2.5 mg tablet 2.5 mg PO DAILY mirabegron [Myrbetriq] 50 mg tablet extended release 24 hr 50 mg PO DAILY dicyclomine 20 mg tablet 20 mg PO 4X/DAY PRN PRN (Reason: abdominal pain) Creon 12,000-38,000 -60,000 unit capsule,delayed release(DR/EC) 1 cap PO TID polyethylene glycol 3350 [Miralax] 17 gram/dose powder 17 g PO DAILY Qty: 510 0RF phenazopyridine [Pyridium] 200 mg tablet 200 mg PO TID Qty: 6 0RF meloxicam 7.5 mg tablet 7.5 mg PO DAILY nortriptyline 10 mg capsule 10 mg PO QHS Primary Care Provider: Dean Varghese Referrals: Dean Varghese DO [Primary Care Provider, Medical] - 3-5 Days if not improving Print Language: [place] Irish Disposition Disposition: Home, Self Care
[2025-08-31 22:32] VITALS: BP 134/64; PULSE 74; RESP 18; TEMP 36.4; O2SAT 98
== END 2025-08-31 22:32 | disposition home or self-care (01) ==
PROVIDERS: Emergency Provider Emergency Medicine; Visit Provider Emergency Medicine
DX: R10.12 Left upper quadrant pain (principal); F31.9 Bipolar disorder, unspecified; N39.0 Urinary tract infection, site not specified; I10 Essential (primary) hypertension; F41.9 Anxiety disorder, unspecified; K21.9 Gastro-esophageal reflux disease without esophagitis; M79.7 Fibromyalgia; E78.00 Pure hypercholesterolemia, unspecified; G25.81 Restless legs syndrome; G43.909 Migraine, unspecified, not intractable, without status migrainosus; F17.290 Nicotine dependence, other tobacco product, uncomplicated; Z90.49 Acquired absence of other specified parts of digestive tract; Z87.11 Personal history of peptic ulcer disease; Z85.41 Personal history of malignant neoplasm of cervix uteri; Z87.19 Personal history of other diseases of the digestive system; Z79.899 Other long term (current) drug therapy
CPT/HCPCS: 80053; 83690; 85025; 96374; 99282; A4216; J2405

== ENCOUNTER 2025-09-06 22:29 | Emergency (ER) | payer MEDICAID, SELFPAY ==
[2025-09-06 22:29] VITALS: BP 134/80; PULSE 81; RESP 18; TEMP 35.9; O2SAT 100
[2025-09-07 01:20] LABS: Mucous, Urine 0 SEEN /hpf (<or=2+); Red Blood Cells-Urine 0 SEEN /hpf (0-5)
[2025-09-07 01:26] LABS: Hematocrit 36.2 % (37-47); Hemoglobin 11.9 g/dL (12.0-15.0); Immature Granulocytes Count 0.010 X10^3/uL (0.0-0.0); Mean Corp Hgb Conc 32.9 g/dL (32-36); Mean Corpuscular Volume 94.0 fL (81-99); Mean Platelet Vol. 11.4 fl (6.2-12.0); NRBC Flagged by Analyzer 0 % (0-5); Platelet Count 217 K/mm3 (150-450); RBC Distribution Width CV 14.0 % (11.6-14.6); RBC Distribution Width SD 46.5 fl (35.1-43.9); Red Blood Count 3.85 M/mm3 (4.2-5.4); White Blood Count 5.4 K/mm3 (4.4-11.0)
[2025-09-07 01:27] LABS: Color, Urine Yellow (Yellow); Glucose, Dipstick Normal (Normal); Ketone-Dipstick Negative (Negative); Leukocyte Esterase-Dipstick Negative /ul (Negative); Nitrite-Dipstick Negative (Negative); Occult Blood-Urine 25 /ul (Negative); Protein-Dipstick 15 mg/dl (Negative); Specific Gravity, Urine 1.015 (1.002-1.030); Urine Bilirubin Dipstick Negative (Negative)
[2025-09-07 01:30] LABS: Internal QC Validated? YES +Cl - CLEAR BKGD; Pregnancy, Serum, hCG Quali. NEGATIVE Negative
[2025-09-07 01:31] LABS: Record Kit Lot#, Serum Preg. 0000980607
[2025-09-07 01:34] LABS: Squamous Epithelial Cells - UA 0-5 SEEN /hpf (5-10)
[2025-09-07 01:44] LABS: AST(SGOT) 50 U/L (<=31); Alanine Aminotransfer ALT/SGPT 36 U/L (<=34); Albumin, Serum 4.2 g/dL (3.5-5.0); Alkaline Phosphatase 158 U/L (35-104); Anion Gap 12 (5-15); BUN 15 mg/dL (4-19); BUN/Creat Ratio 20.9 RATIO (10-20); Bilirubin, Direct < 0.08 mg/dL (0.00-0.30); Calcium,Total 9.4 mg/dL (7.6-11.0); Carbon Dioxide 17.3 mmol/L (21.0-32.0); Chloride 106 mmol/L (98-108); Estimated Creatinine Clearance 110.13 ml/min (50-250); Globulin 2.8 g/dL (2.2-4.2); Glucose 120 mg/dL (70-99); Lipase 35 U/L (13-75); Potassium 4.9 mmol/L (3.3-5.1)
--- NOTE | 2025-09-07 02:08 | EX.ED.DYSGE1 ---
HPI History of Present Illness Chief Complaint: Chest Other Informant: patient and spouse/S.O. Narrative Narrative: Patient is a 35-year-old female with past medical history of hypertension hyperlipidemia gastroparesis and bipolar disorder. She reports she has pain in the left upper abdomen to midepigastric region. She states that there has been no fevers chills or known sick contact. She reports nausea without vomiting. She states has been no dysuria or hematuria. She denies any concern for . She states the pain is very similar to what she has experienced on a daily basis and has been seen for in the ER in the past. She states she is taking her daily medication as directed but as there is not any symptom improvement comes to the ER for evaluation. She does report she has tried to see her specialist but has been unable to do so at this time [facility] Medical History Effusion, right knee Gastroparesis Pancreatitis Right knee pain Avulsion fracture of lateral malleolus of right fibula Left renal stone Smoker Bilateral renal stones Wears glasses Wears dentures Alcohol use Marijuana use History of renal disease Fatty liver High cholesterol Easy bruising Restless legs Syncope Gastric reflux Environmental and seasonal allergies Leg cramps History of edema History of echocardiogram History of stress test Cardiology follow-up encounter Hypertension Peptic ulcer of stomach Migraine Chronic interstitial cystitis Endometriosis Bipolar disorder Anxiety Depression Back pain Conversion disorder History of cervical cancer Kidney stone Fibromyalgia Home Medications Medication Instructions Recorded Last Taken Type escitalopram oxalate 20 mg tablet 20 mg PO DAILY DEPRESSION 09/22/21 10/27/23 History (Lexapro) tizanidine 4 mg tablet 4 mg PO TID MUSCLE SPASMS 10/28/23 10/27/23 History atogepant 60 mg tablet (Qulipta) 60 mg PO QHS 04/21/24 Unknown History rimegepant 75 mg disintegrating 75 mg PO ONCE PRN migraine headache 04/21/24 Unknown History tablet (Nurtec ODT) metoclopramide HCl 5 mg tablet 5 mg PO Q6H PRN nausea and 11/04/24 11/06/24 17:30 Rx (Reglan) vomiting #20 tabs oxycodone-acetaminophen 5 mg-325 1 tab PO Q4H PRN pain 11/06/24 Unknown History mg tablet (Percocet) pantoprazole 40 mg tablet,delayed 40 mg PO BID 11/06/24 Unknown History release olanzapine 10 mg disintegrating 10 mg PO QHS 01/22/25 Unknown History tablet mirabegron 50 mg tablet,extended 50 mg PO DAILY 02/03/25 Unknown History release 24 hr (Myrbetriq) dicyclomine 20 mg tablet 20 mg PO 4X/DAY PRN PRN abdominal 03/07/25 Unknown History pain gawxrb-pfocsade-bqoopux(pork)12,000-38,000-60,000 1 cap PO TID 03/07/25 Unknown History unit capsule,del rel (Creon) amlodipine 2.5 mg tablet 2.5 mg PO DAILY 07/13/25 Unknown History polyethylene glycol 3350 17 17 g PO DAILY #510 grams 07/18/25 Unknown Rx gram/dose oral powder (Miralax) phenazopyridine 200 mg tablet 200 mg PO TID 6 doses #6 tabs 08/26/25 Unknown Rx (Pyridium) meloxicam 7.5 mg tablet 7.5 mg PO DAILY pain 08/27/25 Unknown History nortriptyline 10 mg capsule 10 mg PO QHS 08/27/25 Unknown History Allergy/AdvReac Type Severity Reaction Status Date / Time amitriptyline Allergy MUSCLE Verified 09/06/25 22:29 SPASMS Bleach (Sodium Hypochlorite) Allergy Hives Verified 09/06/25 22:29 codeine Allergy unknown Verified 09/06/25 22:29 droperidol Allergy Anaphylaxis Verified 09/06/25 22:29 ketorolac (From Toradol) Allergy Itching Verified 09/06/25 22:29 nitrofurantoin (From Allergy Anaphylaxis Verified 09/06/25 22:29 Macrodantin) NSAIDS (Non-Steroidal Allergy Other Verified 09/06/25 22:29 Anti-Inflamma oseltamivir (From Tamiflu) Allergy SOB Verified 09/06/25 22:29 doxycycline AdvReac Vomiting Verified 09/06/25 22:29 Family History Mother Hypertension Migraine Grandmother CVA (cerebral vascular accident) Grandfather Diabetes Father Myocardial infarction Surgical History History of cystoscopy S/P laparoscopic surgery History of hysterectomy Hx of cholecystectomy Social History household members: significant other housing: house Smoking Status: Current every day smoker tobacco type: e-cigarettes alcohol intake: current details: occasionally substance use type: does not use caffeine: Yes what type of physical activity do you participate in: walking frequency: 1-2 times per week seatbelt use: always do you feel safe at home: Yes additional social history: Single ROS ROS ED Constitutional Constitutional ED: Denies chills or fever(s) ENT ENT ED: Denies sore throat Cardiovascular Cardiovascular: Denies chest pain Respiratory/Chest Respiratory/Chest: Denies cough or dyspnea Gastrointestinal Gastrointestinal: Reports abdominal pain and nausea; Denies diarrhea or vomiting Genitourinary Genitourinary ED: Denies dysuria or hematuria Musculoskeletal Musculoskeletal: Denies back pain or myalgias Integumentary Denies rash Neurologic Neurologic: Denies headache(s) Hematologic/Lymphatic Hematologic/Lymphatic: Denies easy bleeding or easy bruising EXAM Physical Exam Const Vital Signs: 09/06/25 22:29 09/07/25 02:11 Temperature 96.6 F L 97.8 F Temperature Source Temporal Pulse Rate 81 69 Respiratory Rate 18 18 Blood Pressure 134/80 H 139/74 H Blood Pressure Mean 98 95 Pulse Ox 100 97 Oxygen Delivery Method Room Air Positive well nourished, well developed and obese General Appearance ED: well developed; Negative for pallor Nutritional Appearance: obese HEENT HEENT Narrative: Normocephalic atraumatic No tongue or lip swelling no oral lesions no airway edema or compromise No secondary findings in the posterior pharynx to suggest infection Eyes PERRL and EOMs intact bilaterally General Eye ED: Negative for scleral icterus Neck supple Chest Wall palpation of chest normal Chest Narrative: No bony deformity or subcutaneous emphysema noted No pain with palpation Resp normal respiratory effort and clear to auscultation bilaterally Cardio regular rate and regular rhythm Rate: other Other Details: Heart is regular rate and rhythm without murmurs rubs or gallop Radial and carotid pulses are equal and symmetric GI non-distended and no masses GI Narrative: Abdomen is soft and nondistended with hypoactive bowel sounds. There is pain on palpation in the midepigastric and left upper quadrant region without voluntary guarding or rigidity No pulsatile mass or fluid wave No peritoneal signs No distention or increased tympany Auscultation: hypoactive bowel sounds Palpation: soft Back/Spine no CVA tenderness Extremity normal to inspection Neuro oriented x3, CN's II-XII intact bilaterally and no sensory deficits noted Sensorium / Orientation: alert Motor Exam: strength 5/5 throughout Psych Psych Narrative: Patient has a depressed/flat affect Mood & Affect: depressed Skin no rashes or lesions noted and no wounds Skin Narrative: No overlying soft tissue skin changes to suggest trauma or infection General Skin Exam: Negative for jaundice or pallor MDM MDM MDM Narrative Medical decision making narrative: Patient arrived to ER mildly hypertensive but has a past medical history of this. She has been seen in the ER multiple times for her abdominal discomfort and has had multiple imaging studies. Her previous labs and images were reviewed. At this time in order to rule out acute kidney injury pancreatitis UTI/pyelonephritis or potential infection such as colitis/diverticulitis I did elect to perform basic laboratory studies. However as she had a CT scan on August 27 I felt no need to repeat 1 at this time based on her vitals and physical exam. Labs revealed no clinically significant findings. On reevaluation however remains soft and nonsurgical. Therefore I feel that her symptoms are related to her underlying chronic medical conditions and chronic abdominal discomfort and there is no need for further intervention or workup at this time and she is otherwise safe for discharge History & Record Review Discussion w/independent historian: Patient Additional record(s) reviewed:: Prior ED visit and Prior labs Lab Data Attestation: I reviewed the patient's lab results. Labs: Laboratory Results - last 24 hr 09/07/25 09/07/25 01:13 01:17 WBC 5.4 RBC 3.85 L Hgb 11.9 L Hct 36.2 L MCV 94.0 MCH 30.9 MCHC 32.9 RDW Std Deviation 46.5 H RDW Coeff of Romario 14.0 Plt Count 217 MPV 11.4 Immature Gran % (Auto) 0.200 Neut % (Auto) 47.9 Lymph % (Auto) 44.8 H [place] % (Auto) 6.3 Eos % (Auto) 0.6 Baso % (Auto) 0.2 Absolute Neuts (auto) 2.6 Absolute Lymphs (auto) 2.42 Nucleated RBC % 0 Sodium 135 Potassium 4.9 Chloride 106 Carbon Dioxide 17.3 L Anion Gap 12 BUN 15 Creatinine 0.70 Estim Creat Clear Calc 110.13 Est GFR (MDRD) Non-Af 116 BUN/Creatinine Ratio 20.9 H Glucose 120 H Calcium 9.4 Total Bilirubin 0.32 Direct Bilirubin < 0.08 AST 50 H ALT 36 H Alkaline Phosphatase 158 H Total Protein 7.0 Albumin 4.2 Globulin 2.8 Lipase 35 Serum , Qual NEGATIVE Urine Color Yellow Urine Clarity Clear Urine pH 6.0 Ur Specific [place] 1.015 Urine Protein 15 H Urine Glucose (UA) Normal Urine Ketones Negative Urine Occult Blood 25 H Urine Nitrite Negative Urine Bilirubin Negative Urine Urobilinogen Normal Ur Leukocyte Esterase Negative Urine RBC 0 SEEN Urine WBC 0 SEEN Ur Squamous Epith Cells 0-5 SEEN Urine Bacteria RARE Urine Mucus 0 SEEN Discharge Plan Triage Chief Complaint: Chest Other ED Provider: Lanre Puentes Dx/Rx/DC Orders Clinical Impression: Nonspecific abdominal pain, Gastroparesis, Hypertension, Hyperlipidemia, Bipolar disorder Instructions: Abdominal Pain Prescriptions: No Action Nurtec ODT 75 mg tablet,disintegrating 75 mg PO ONCE PRN (Reason: migraine headache) Rx Instructions: as a single dose Qulipta 60 mg tablet 60 mg PO QHS escitalopram oxalate [Lexapro] 20 mg Tablet 20 mg PO DAILY tizanidine 4 mg tablet 4 mg PO TID Patient Comments: PT STATES THAT THEY USUALLY TAKE ALL THREE TABLETS TOGETHER ONCE DAILY AT BEDTIME BECAUSE IT MAKES THEM DROWSY ( OF 10-28-23) metoclopramide HCl [Reglan] 5 mg tablet 5 mg PO Q6H PRN (Reason: nausea and vomiting) Qty: 20 0RF pantoprazole 40 mg tablet,delayed release (DR/EC) 40 mg PO BID oxycodone-acetaminophen [Percocet] 5-325 mg tablet 1 tab PO Q4H PRN (Reason: pain) Patient Comments: patient needs to get it filled, currently out but has not made it to her pharmacy to pick it up olanzapine 10 mg tablet,disintegrating 10 mg PO QHS amlodipine 2.5 mg tablet 2.5 mg PO DAILY mirabegron [Myrbetriq] 50 mg tablet extended release 24 hr 50 mg PO DAILY dicyclomine 20 mg tablet 20 mg PO 4X/DAY PRN PRN (Reason: abdominal pain) Creon 12,000-38,000 -60,000 unit capsule,delayed release(DR/EC) 1 cap PO TID polyethylene glycol 3350 [Miralax] 17 gram/dose powder 17 g PO DAILY Qty: 510 0RF phenazopyridine [Pyridium] 200 mg tablet 200 mg PO TID Qty: 6 0RF meloxicam 7.5 mg tablet 7.5 mg PO DAILY nortriptyline 10 mg capsule 10 mg PO QHS Primary Care Provider: Dean Varghese Referrals: Dean Varghese DO [Primary Care Provider, Medical] Activity Restrictions/Additional Instructions: Your labs were essentially similar to your previous visit going against signs of acute infection or pancreatitis. Your urine sample also showed no sign of infection or concern for kidney stone. This indicates your symptoms are most likely related to your underlying chronic condition of gastroparesis. Follow-up with your family doctor and/or commercial lines sales executive to discuss further testing and treatment options Print Language: Luxembourgish Disposition Disposition: Home, Self Care Discharge Date/Time: 09/07/25 02:17 D/C Safety Score for UGIB Assessment [place] Bleeding Score (GBS): Stratifies upper GI bleeding patients who are "low-risk" and candidates for outpatient management. Hemoglobin, BUN, Recent Vital Signs: Hgb 11.9 g/dL (12.0-15.0) L 09/07/25 01:17 BUN 15 mg/dL (4-19) 09/07/25 01:17 Pulse Rate 69 Blood Pressure 139/74 Score Interpretation: Score of 0: A GBS of 0 is a “Low Risk” GI bleed, and is highly sensitive (99.6% in a 2007 retrospective study) for predicting which patients did not require any “medical intervention”: blood transfusion, endoscopy, or surgery. This was confirmed in a 2009 [facility] study where patients with a score of 0 were actually discharged and had no GI bleeding mortality at 6 month followup Score above 0: A GBS greater than zero suggests a “High Risk” GI bleed that is likely to require “medical intervention”: transfusion, endoscopy, or surgery. A higher GBS also correlated with a higher likelihood of needing intervention Scores >/= 6 are associated with >50% risk of needing intervention D/C Safety Score for LGIB Assessment Assessment Tool: Readmission and adverse event risk in patients with acute lower GI bleeding. Hemoglobin and Recent Vital Signs: Hgb 11.9 g/dL (12.0-15.0) L 09/07/25 01:17 Pulse Rate 69 09/07/25 02:11 Blood Pressure 139/74 09/07/25 02:11 Score Interpretation: Probability Percentage of safe discharge (absence of rebleeding, blood transfusion, therapeutic intervention, 28 day readmission, or ) Score of 8 or below: Consider discharge, with appropriate precautions. Score of 9 or above: Discharge NOT recommended. Consider admission with further workup and resuscitation as necessary.
[2025-09-07 02:11] VITALS: BP 139/74; PULSE 69; RESP 18; TEMP 36.6; O2SAT 97
== END 2025-09-07 02:17 | disposition home or self-care (01) ==
PROVIDERS: Emergency Provider Emergency Medicine; Visit Provider Emergency Medicine
DX: R10.12 Left upper quadrant pain (principal); F31.9 Bipolar disorder, unspecified; R10.13 Epigastric pain; R11.0 Nausea; I10 Essential (primary) hypertension; E78.5 Hyperlipidemia, unspecified; K31.84 Gastroparesis; M79.7 Fibromyalgia; F41.9 Anxiety disorder, unspecified; K21.9 Gastro-esophageal reflux disease without esophagitis; E66.9 Obesity, unspecified; N30.10 Interstitial cystitis (chronic) without hematuria; G25.81 Restless legs syndrome; G89.29 Other chronic pain; G43.909 Migraine, unspecified, not intractable, without status migrainosus; F17.290 Nicotine dependence, other tobacco product, uncomplicated; Z85.41 Personal history of malignant neoplasm of cervix uteri; Z87.11 Personal history of peptic ulcer disease; Z87.19 Personal history of other diseases of the digestive system; Z79.899 Other long term (current) drug therapy; Z90.49 Acquired absence of other specified parts of digestive tract
CPT/HCPCS: 80048; 80076; 81001; 83690; 84703; 85025; 96374; 96375; 96376; 99283; A4216

== ENCOUNTER 2025-09-12 23:47 | Emergency (ER) | payer MEDICAID, SELFPAY ==
[2025-09-12 23:48] VITALS: BP 162/99; PULSE 75; RESP 16; TEMP 37; O2SAT 100; BMI 30.2
[2025-09-13] MEDS: 0.9% Normal Saline (1000mL) 1,000 ML 999 ML IV (01:10)
[2025-09-13 01:26] LABS: Mucous, Urine 0 SEEN /hpf (<or=2+); Red Blood Cells-Urine 0 SEEN /hpf (0-5)
[2025-09-13 01:29] LABS: Hematocrit 43.6 % (37-47); Hemoglobin 15.1 g/dL (12.0-15.0); Immature Granulocytes Count 0.020 X10^3/uL (0.0-0.0); Mean Corp Hgb Conc 34.6 g/dL (32-36); Mean Corpuscular Volume 91.8 fL (81-99); Mean Platelet Vol. 11.8 fl (6.2-12.0); NRBC Flagged by Analyzer 0 % (0-5); Platelet Count 228 K/mm3 (150-450); RBC Distribution Width CV 14.6 % (11.6-14.6); RBC Distribution Width SD 48.7 fl (35.1-43.9); Red Blood Count 4.75 M/mm3 (4.2-5.4); White Blood Count 6.1 K/mm3 (4.4-11.0)
[2025-09-13 01:30] LABS: Glucose, Dipstick Normal (Normal); Ketone-Dipstick Negative (Negative); Leukocyte Esterase-Dipstick 25 /ul (Negative); Nitrite-Dipstick Negative (Negative); Occult Blood-Urine Negative /ul (Negative); Protein-Dipstick Negative (Negative); Specific Gravity, Urine 1.005 (1.002-1.030); Urine Bilirubin Dipstick Negative (Negative)
[2025-09-13 01:39] LABS: Color, Urine Yellow (Yellow)
[2025-09-13 01:40] LABS: Internal QC Validated? YES +Cl - CLEAR BKGD; Pregnancy, Urine Negative Negative; Record Kit Lot#,Urine Preg 0000980607
[2025-09-13 01:44] LABS: Squamous Epithelial Cells - UA 0-5 SEEN /hpf (5-10)
[2025-09-13 01:48] VITALS: BP 153/105; PULSE 99; O2SAT 100
[2025-09-13 01:59] LABS: Lipase 27 U/L (13-75)
[2025-09-13 02:03] LABS: AST(SGOT) 50 U/L (<=31); Alanine Aminotransfer ALT/SGPT 43 U/L (<=34); Albumin, Serum 4.9 g/dL (3.5-5.0); Alkaline Phosphatase 182 U/L (35-104); Anion Gap 18 (5-15); BUN 6 mg/dL (4-19); BUN/Creat Ratio 7.7 RATIO (10-20); Bilirubin, Direct 0.16 mg/dL (0.00-0.30); Calcium,Total 10.3 mg/dL (7.6-11.0); Carbon Dioxide 19.7 mmol/L (21.0-32.0); Chloride 104 mmol/L (98-108); Estimated Creatinine Clearance 94.33 ml/min (50-250); Globulin 3.8 g/dL (2.2-4.2); Glucose 105 mg/dL (70-99); Potassium 3.3 mmol/L (3.3-5.1)
--- NOTE | 2025-09-13 02:31 | EX.ED.DYSGE1 ---
HPI History of Present Illness Chief Complaint: Abd Pain Informant: patient and spouse/S.O. Narrative Narrative: Patient is a 35-year-old female with history of gastroparesis hypertension hyperlipidemia bipolar disorder and chronic abdominal pain. She states she was doing well throughout the day roughly 2 hours prior to arrival she felt nauseated and had increased pain in the mid epigastric to right upper quadrant region. She denies any recent trauma or excessive activity fevers chills or dysuria. However she was concerned that this pain could be something different than her chronic abdominal pain as her home medications were not helping control her symptoms and therefore comes in for evaluation [facility] Medical History Effusion, right knee Gastroparesis Pancreatitis Right knee pain Avulsion fracture of lateral malleolus of right fibula Left renal stone Smoker Bilateral renal stones Wears glasses Wears dentures Alcohol use Marijuana use History of renal disease Fatty liver High cholesterol Easy bruising Restless legs Syncope Gastric reflux Environmental and seasonal allergies Leg cramps History of edema History of echocardiogram History of stress test Cardiology follow-up encounter Hypertension Peptic ulcer of stomach Migraine Chronic interstitial cystitis Endometriosis Bipolar disorder Anxiety Depression Back pain Conversion disorder History of cervical cancer Kidney stone Fibromyalgia Home Medications ?Medication ?Instructions ?Recorded ?Last Taken ?Type escitalopram oxalate 20 mg tablet 20 mg PO DAILY DEPRESSION 09/22/21 10/27/23 History (Lexapro) tizanidine 4 mg tablet 4 mg PO TID MUSCLE SPASMS 10/28/23 10/27/23 History atogepant 60 mg tablet (Qulipta) 60 mg PO QHS 04/21/24 Unknown History rimegepant 75 mg disintegrating 75 mg PO ONCE PRN migraine headache 04/21/24 Unknown History tablet (Nurtec ODT) metoclopramide HCl 5 mg tablet 5 mg PO Q6H PRN nausea and 11/04/24 11/06/24 17:30 Rx (Reglan) vomiting #20 tabs oxycodone-acetaminophen 5 mg-325 1 tab PO Q4H PRN pain 11/06/24 Unknown History mg tablet (Percocet) pantoprazole 40 mg tablet,delayed 40 mg PO BID 11/06/24 Unknown History release olanzapine 10 mg disintegrating 10 mg PO QHS 01/22/25 Unknown History tablet mirabegron 50 mg tablet,extended 50 mg PO DAILY 02/03/25 Unknown History release 24 hr (Myrbetriq) dicyclomine 20 mg tablet 20 mg PO 4X/DAY PRN PRN abdominal 03/07/25 Unknown History pain fsumci-smalyuvv-djbhmbx(pork)12,000-38,000-60,000 1 cap PO TID 03/07/25 Unknown History unit capsule,del rel (Creon) amlodipine 2.5 mg tablet 2.5 mg PO DAILY 07/13/25 Unknown History polyethylene glycol 3350 17 17 g PO DAILY #510 grams 07/18/25 Unknown Rx gram/dose oral powder (Miralax) phenazopyridine 200 mg tablet 200 mg PO TID 6 doses #6 tabs 08/26/25 Unknown Rx (Pyridium) meloxicam 7.5 mg tablet 7.5 mg PO DAILY pain 08/27/25 Unknown History nortriptyline 10 mg capsule 10 mg PO QHS 08/27/25 Unknown History Allergy/AdvReac Type Severity Reaction Status Date / Time amitriptyline Allergy MUSCLE Verified 09/12/25 23:48 SPASMS Bleach (Sodium Hypochlorite) Allergy Hives Verified 09/12/25 23:48 codeine Allergy unknown Verified 09/12/25 23:48 droperidol Allergy Anaphylaxis Verified 09/12/25 23:48 ketorolac (From Toradol) Allergy Itching Verified 09/12/25 23:48 nitrofurantoin (From Allergy Anaphylaxis Verified 09/12/25 23:48 Macrodantin) NSAIDS (Non-Steroidal Allergy Other Verified 09/12/25 23:48 Anti-Inflamma oseltamivir (From Tamiflu) Allergy SOB Verified 09/12/25 23:48 doxycycline AdvReac Vomiting Verified 09/12/25 23:48 Family History Mother Hypertension Migraine Grandmother CVA (cerebral vascular accident) Grandfather Diabetes Father Myocardial infarction Surgical History History of cystoscopy S/P laparoscopic surgery History of hysterectomy Hx of cholecystectomy Social History household members: significant other housing: house Smoking Status: Current every day smoker tobacco type: e-cigarettes alcohol intake: current details: occasionally substance use type: does not use caffeine: Yes what type of physical activity do you participate in: walking frequency: 1-2 times per week seatbelt use: always do you feel safe at home: Yes additional social history: Single ROS ROS ED Constitutional Constitutional ED: Denies chills or fever(s) ENT ENT ED: Denies sore throat Cardiovascular Cardiovascular: Denies chest pain Respiratory/Chest Respiratory/Chest: Denies cough or dyspnea Gastrointestinal Gastrointestinal: Reports abdominal pain and nausea; Denies diarrhea or vomiting Genitourinary Genitourinary ED: Denies dysuria or hematuria Musculoskeletal Musculoskeletal: Denies back pain or myalgias Integumentary Denies rash Neurologic Neurologic: Denies headache(s) Hematologic/Lymphatic Hematologic/Lymphatic: Denies easy bleeding or easy bruising EXAM Physical Exam Const Vital Signs: 09/12/25 23:48 09/13/25 01:48 09/13/25 02:50 Temperature 98.6 F Temperature Source Oral Pulse Rate 75 99 89 Respiratory Rate 16 16 Blood Pressure 162/99 H 153/105 H 137/95 H Blood Pressure Mean 120 121 109 Pulse Ox 100 100 99 Oxygen Delivery Method Room Air Room Air Room Air 09/13/25 02:50 Temperature 98 F Temperature Source Pulse Rate 89 Respiratory Rate 16 Blood Pressure 137/95 H Blood Pressure Mean 109 Pulse Ox 99 Oxygen Delivery Method Positive well nourished, well developed and obese General Appearance ED: well developed; Negative for pallor Nutritional Appearance: obese HEENT HEENT Narrative: Normocephalic atraumatic No tongue or lip swelling no oral lesions no airway edema or compromise; no secondary findings in the posterior pharynx to suggest infection Eyes PERRL and EOMs intact bilaterally General Eye ED: Negative for scleral icterus Neck supple Neck Narrative: No nuchal rigidity or meningeal signs Resp normal respiratory effort and clear to auscultation bilaterally Cardio regular rate and regular rhythm Rate: other Other Details: Regular rate and rhythm without murmurs rubs or gallop Radial and carotid pulses equal and symmetric GI non-distended and no masses GI Narrative: Abdomen is soft and nondistended with normal active bowel sounds. There is pain on palpation in the midepigastric and right upper quadrant. No voluntary guarding or rigidity or pulsatile mass. No peritoneal signs Auscultation: normoactive bowel sounds Palpation: soft Back/Spine no CVA tenderness Extremity normal to inspection Neuro oriented x3, CN's II-XII intact bilaterally and no sensory deficits noted Sensorium / Orientation: alert Motor Exam: strength 5/5 throughout Psych Psych Narrative: Patient has a depressed/flat affect Skin no rashes or lesions noted and no wounds General Skin Exam: Negative for jaundice or pallor MDM MDM MDM Narrative Medical decision making narrative: Patient arrived to ER hypertensive but otherwise with stable vitals and has a past medical history of this. She has chronic abdominal issues and has been seen in the ER multiple times for them. Chart review reveals she has had imaging and laboratory studies recently that revealed no acute or clinically significant finding. Therefore I do not feel the need for repeat CT scan at this time based on her abdomen being soft and nonsurgical and recent negative workup. Patient blood work was obtained to assess for elevation to the white count to suggest infection electrolyte abnormality acute kidney injury or elevation of the lipase or liver enzymes to suggest potential gallstone pancreatitis as a cause of her symptoms. Urine sample revealed no sign of acute infection going against pyelonephritis nor was there blood present going against kidney stone. With provided medication she had resolution of her pain and her blood pressure improved and her abdomen remains soft and nonsurgical. Therefore I feel no need for further workup or intervention at this time and she is otherwise safe for discharge History & Record Review Discussion w/independent historian: Patient and Significant other Additional record(s) reviewed:: Prior ED visit and Prior labs Lab Data Attestation: I reviewed the patient's lab results. Labs: Laboratory Results - last 24 hr 09/13/25 09/13/25 01:08 01:18 WBC 6.1 RBC 4.75 Hgb 15.1 H Hct 43.6 MCV 91.8 MCH 31.8 MCHC 34.6 RDW Std Deviation 48.7 H RDW Coeff of Romario 14.6 Plt Count 228 MPV 11.8 Immature Gran % (Auto) 0.300 Neut % (Auto) 57.0 Lymph % (Auto) 37.7 [place] % (Auto) 4.5 Eos % (Auto) 0.3 Baso % (Auto) 0.2 Absolute Neuts (auto) 3.5 Absolute Lymphs (auto) 2.28 Nucleated RBC % 0 Sodium 142 Potassium 3.3 Chloride 104 Carbon Dioxide 19.7 L Anion Gap 18 H BUN 6 Creatinine 0.82 Estim Creat Clear Calc 94.33 Est GFR (MDRD) Non-Af 96 BUN/Creatinine Ratio 7.7 L Glucose 105 H Calcium 10.3 Total Bilirubin 0.38 Direct Bilirubin 0.16 AST 50 H ALT 43 H Alkaline Phosphatase 182 H Total Protein 8.7 H Albumin 4.9 Globulin 3.8 Lipase 27 Urine Color Yellow Urine Clarity Clear Urine pH 7.0 Ur Specific [place] 1.005 Urine Protein Negative Urine Glucose (UA) Normal Urine Ketones Negative Urine Occult Blood Negative Urine Nitrite Negative Urine Bilirubin Negative Urine Urobilinogen Normal Ur Leukocyte Esterase 25 H Urine RBC 0 SEEN Urine WBC 0-5 SEEN Ur Squamous Epith Cells 0-5 SEEN Urine Bacteria 1+ Urine Mucus 0 SEEN Urine Test Negative Discharge Plan Triage Chief Complaint: Abd Pain ED Provider: Lanre Puentes Dx/Rx/DC Orders Clinical Impression: Nonspecific abdominal pain, Gastroparesis, Hypertension, Hyperlipidemia, Bipolar disorder Instructions: Abdominal Pain, Gastroparesis Prescriptions: No Action Nurtec ODT 75 mg tablet,disintegrating 75 mg PO ONCE PRN (Reason: migraine headache) Rx Instructions: as a single dose Qulipta 60 mg tablet 60 mg PO QHS escitalopram oxalate [Lexapro] 20 mg Tablet 20 mg PO DAILY tizanidine 4 mg tablet 4 mg PO TID Patient Comments: PT STATES THAT THEY USUALLY TAKE ALL THREE TABLETS TOGETHER ONCE DAILY AT BEDTIME BECAUSE IT MAKES THEM DROWSY ( OF 10-28-23) metoclopramide HCl [Reglan] 5 mg tablet 5 mg PO Q6H PRN (Reason: nausea and vomiting) Qty: 20 0RF pantoprazole 40 mg tablet,delayed release (DR/EC) 40 mg PO BID oxycodone-acetaminophen [Percocet] 5-325 mg tablet 1 tab PO Q4H PRN (Reason: pain) Patient Comments: patient needs to get it filled, currently out but has not made it to her pharmacy to pick it up olanzapine 10 mg tablet,disintegrating 10 mg PO QHS amlodipine 2.5 mg tablet 2.5 mg PO DAILY mirabegron [Myrbetriq] 50 mg tablet extended release 24 hr 50 mg PO DAILY dicyclomine 20 mg tablet 20 mg PO 4X/DAY PRN PRN (Reason: abdominal pain) Creon 12,000-38,000 -60,000 unit capsule,delayed release(DR/EC) 1 cap PO TID polyethylene glycol 3350 [Miralax] 17 gram/dose powder 17 g PO DAILY Qty: 510 0RF phenazopyridine [Pyridium] 200 mg tablet 200 mg PO TID Qty: 6 0RF meloxicam 7.5 mg tablet 7.5 mg PO DAILY nortriptyline 10 mg capsule 10 mg PO QHS Primary Care Provider: Dean Varghese Referrals: Dean Varghese DO [Primary Care Provider, Medical] Activity Restrictions/Additional Instructions: Your workup revealed no clinically significant findings and was very similar to the previous blood work we have done. This indicates that your symptoms are most likely related to your underlying chronic abdominal symptoms. Follow-up with your doctor to discuss any further treatment options and continue all of your home medications as directed by them. Return to the ER should you have any further concerns Print Language: Indonesian Disposition Disposition: Home, Self Care Discharge Date/Time: 09/13/25 03:02
[2025-09-13 02:50] VITALS: BP 137/95; PULSE 89; RESP 16; TEMP 36.6; O2SAT 99
== END 2025-09-13 03:02 | disposition home or self-care (01) ==
PROVIDERS: Emergency Provider Emergency Medicine; Visit Provider Emergency Medicine
DX: R10.9 Unspecified abdominal pain (principal); F31.9 Bipolar disorder, unspecified; I10 Essential (primary) hypertension; K31.84 Gastroparesis; E78.00 Pure hypercholesterolemia, unspecified; F17.290 Nicotine dependence, other tobacco product, uncomplicated; E66.9 Obesity, unspecified
CPT/HCPCS: 80048; 80076; 81001; 81025; 83690; 85025; 96361; 96374; 96375; 96376; 99283; A4216; J2405

== ENCOUNTER 2025-10-03 15:31 | Emergency (ER) | payer MEDICAID, SELFPAY ==
[2025-10-03 15:32] VITALS: BP 151/105; PULSE 124; RESP 16; TEMP 37.6; O2SAT 99; BMI 35.6
--- NOTE | 2025-10-03 16:42 | CT_ITS ---
PROCEDURE: CT ABDOMEN/PELVIS W IV CONT ONLY 10/03/2025 REASON FOR EXAM: LUQ /EPIGASTRIC PAIN, FLANK PAIN TECHNIQUE: Procedure Code: [id number] Modality: CT Procedure: ABDOMEN/PELVIS W IV CONT ONLY Coronal and Sagittal reconstruction series were provided. CONTRAST: Isovue 370 VOLUME: 99 mL One or more dose reduction techniques were used (e.g., Automated exposure control, adjustment of the mA and/or kV according to patient size, use of iterative reconstruction technique. RADIATION DOSE SUMMARY: DLP: 738.77 mGycm COMPARISON: 08/28/2025 FINDINGS: Lung bases: Clear. Liver: Diffuse hepatic steatosis. Gallbladder: Surgically absent. Spleen: Unremarkable. Pancreas: Unremarkable. Adrenals: Unremarkable. Kidneys: Unremarkable. No urolithiasis or hydronephrosis. Bladder: Unremarkable. Reproductive Organs: Prior hysterectomy. Unremarkable adnexae. Bowel: No evidence of obstruction or active inflammatory process. Normal appendix. Lymph nodes: No enlarged abdominopelvic lymph nodes. Vasculature: Normal caliber abdominal aorta and IVC. Peritoneum / Retroperitoneum: No ascites or free air. Bones: No significant abnormality. CT/Abdomen/Pelvis W IV Cont ONLY IMPRESSION: No acute or active inflammatory intra-abdominal pathology. Hepatic steatosis. Status post cholecystectomy and hysterectomy. Reading Location: [id number]
[2025-10-03] MEDS: Pantoprazole Sodium 40 MG in 0.9% Normal Saline (100mL MB+) 100 ML 300 MG IV (17:21)
--- NOTE | 2025-10-03 17:24 | ED.RN ---
PT REFUSED TORADOL. STATES IT CAUSES ITCHING. AWARE DR FLORES ORDERED BENADRYL FOR THE ITCHING RESULTING FROM THE TORADOL. PT STATES I AM NOT WILLING TO TAKE THE RISK. DR LENTZ. PT AWARE PHYSICIAN NOT WILLING TO ORDER NARCOTICS. PT REQUESTS TO TALK WITH PROVIDER. DR LENTZ
[2025-10-03 17:30] LABS: Hematocrit 39.5 % (37-47); Hemoglobin 13.6 g/dL (12.0-15.0); Immature Granulocytes Count 0.030 X10^3/uL (0.0-0.0); Mean Corp Hgb Conc 34.4 g/dL (32-36); Mean Corpuscular Volume 90.8 fL (81-99); Mean Platelet Vol. 10.9 fl (6.2-12.0); NRBC Flagged by Analyzer 0 % (0-5); Platelet Count 272 K/mm3 (150-450); RBC Distribution Width CV 13.8 % (11.6-14.6); RBC Distribution Width SD 46.2 fl (35.1-43.9); Red Blood Count 4.35 M/mm3 (4.2-5.4); White Blood Count 8.3 K/mm3 (4.4-11.0)
[2025-10-03 17:31] VITALS: BP 145/102; PULSE 107; RESP 18; O2SAT 97
--- NOTE | 2025-10-03 17:32 | ED.RN ---
THIS RN AND DR FLORES IN TO TALK WITH PT. DR FLORES INFORMED PT THAT SHE HAD PRESCRIBED THE BENADRYL WITH THE TORADOL TO COMBAT THE ITCHING. PT PARTNER STATES WELL SHE HITS ME WHEN SHE GOT TORADOL THE LAST TIME. DR FLORES STATES TO PT THAT SHE HAD RECEIVED TORADOL IN OCTOBER AND TOLERATED IT WELL. PT STATES WELL IT DID NOT HELP ME. DR FLORES INFORMED PT THAT AT THIS TIME SHE WAS NOT WILLING TO PRESCRIBE ANY NARCOTICS. STATES TO PT THAT IF SOMETHING COMES BACK ON THE CT SCAN SHE WILL ABSOLUTELY TREAT THE PT AT THAT TIME. PT ANGRY AT THIS TIME. REASSURED THAT PHYSICIAN IS TAKING CARE OF HER AND IS CONCERNED ABOUT HER
[2025-10-03 17:49] LABS: AST(SGOT) 37 U/L (<=31); Alanine Aminotransfer ALT/SGPT 53 U/L (<=34); Albumin, Serum 4.3 g/dL (3.5-5.0); Alkaline Phosphatase 139 U/L (35-104); Anion Gap 13 (5-15); BUN 12 mg/dL (4-19); BUN/Creat Ratio 17.5 RATIO (10-20); Calcium,Total 9.7 mg/dL (7.6-11.0); Carbon Dioxide 23.4 mmol/L (21.0-32.0); Chloride 103 mmol/L (98-108); Estimated Creatinine Clearance 127.54 ml/min (50-250); Globulin 3.2 g/dL (2.2-4.2); Glucose 125 mg/dL (70-99); Lipase 28 U/L (13-75); Potassium 3.8 mmol/L (3.3-5.1)
[2025-10-03] MEDS: 0.9% Normal Saline (1000mL) 1,000 ML 999 ML IV (17:53)
[2025-10-03 18:00] LABS: Mucous, Urine 0 SEEN /hpf (<or=2+); Red Blood Cells-Urine 0 SEEN /hpf (0-5)
[2025-10-03 18:20] LABS: Color, Urine Yellow (Yellow); Glucose, Dipstick Normal (Normal); Ketone-Dipstick Negative (Negative); Leukocyte Esterase-Dipstick 25 /ul (Negative); Nitrite-Dipstick Negative (Negative); Occult Blood-Urine 10 /ul (Negative); Protein-Dipstick 30 mg/dl (Negative); Specific Gravity, Urine 1.010 (1.002-1.030); Urine Bilirubin Dipstick Negative (Negative)
[2025-10-03 18:48] LABS: Calcium Oxalate Crystals Ur 1+ /hpf (<or=2+)
[2025-10-03 18:49] LABS: Squamous Epithelial Cells - UA 10-25 SEEN /hpf (5-10)
[2025-10-03 18:53] LABS: Uric Acid Crystals Ur 1+ /hpf (<or=1+)
[2025-10-03 19:13] VITALS: BP 145/102; PULSE 107; RESP 18; TEMP 37.6; O2SAT 97
--- NOTE | 2025-10-04 00:13 | ED.VIS.GI ---
HPI HPI - GI History of Present Illness Chief Complaint: Abd Pain Narrative Narrative: Patient is a 35-year-old female presenting to the emergency department for epigastric and left upper quadrant abdominal pain that started today. Patient has a past medical history of pancreatitis, gastroparesis, bilateral renal stones, alcohol use, marijuana use, fatty liver, gastric reflux. Patient is here frequently for chronic abdominal pain. States this feels similar to her pancreatitis. She endorses a fever at home and took tylenol prior to arrival. Endorses nausea with no vomiting. Denies any dysuria or hematuria. Past surgical history of a hysterectomy and cholecystectomy. [facility] Medical History Effusion, right knee Gastroparesis Pancreatitis Right knee pain Avulsion fracture of lateral malleolus of right fibula Left renal stone Smoker Bilateral renal stones Wears glasses Wears dentures Alcohol use Marijuana use History of renal disease Fatty liver High cholesterol Easy bruising Restless legs Syncope Gastric reflux Environmental and seasonal allergies Leg cramps History of edema History of echocardiogram History of stress test Cardiology follow-up encounter Hypertension Peptic ulcer of stomach Migraine Chronic interstitial cystitis Endometriosis Bipolar disorder Anxiety Depression Back pain Conversion disorder History of cervical cancer Kidney stone Fibromyalgia Home Medications ?Medication ?Instructions ?Recorded ?Last Taken ?Type escitalopram oxalate 20 mg tablet 20 mg PO DAILY DEPRESSION 09/22/21 10/03/25 History (Lexapro) tizanidine 4 mg tablet 4 mg PO TID MUSCLE SPASMS 10/28/23 10/03/25 History atogepant 60 mg tablet (Qulipta) 60 mg PO QHS 04/21/24 10/02/25 History rimegepant 75 mg disintegrating 75 mg PO ONCE PRN migraine headache 04/21/24 Unknown History tablet (Nurtec ODT) metoclopramide HCl 5 mg tablet 5 mg PO Q6H PRN nausea and 11/04/24 11/06/24 17:30 Rx (Reglan) vomiting #20 tabs oxycodone-acetaminophen 5 mg-325 1 tab PO Q4H PRN pain 11/06/24 Unknown History mg tablet (Percocet) pantoprazole 40 mg tablet,delayed 40 mg PO BID 11/06/24 10/03/25 History release olanzapine 10 mg disintegrating 10 mg PO QHS 01/22/25 10/02/25 History tablet mirabegron 50 mg tablet,extended 50 mg PO DAILY 02/03/25 10/03/25 History release 24 hr (Myrbetriq) dicyclomine 20 mg tablet 20 mg PO 4X/DAY PRN PRN abdominal 03/07/25 Unknown History pain zrsjlz-auyeflju-llduqle(pork)12,000-38,000-60,000 1 cap PO TID 03/07/25 10/03/25 History unit capsule,del rel (Creon) amlodipine 2.5 mg tablet 2.5 mg PO DAILY 07/13/25 10/03/25 History nortriptyline 10 mg capsule 10 mg PO QHS 08/27/25 10/02/25 History polyethylene glycol 3350 17 17 g PO DAILY PRN constipation 10/03/25 Unknown History gram/dose oral powder (Miralax) promethazine 12.5 mg rectal 12.5 mg [place] DAILY PRN nausea and 10/03/25 Unknown History suppository (Promethegan) vomiting Allergy/AdvReac Type Severity Reaction Status Date / Time amitriptyline Allergy MUSCLE Verified 10/03/25 15:33 SPASMS Bleach (Sodium Hypochlorite) Allergy Hives Verified 10/03/25 15:33 codeine Allergy unknown Verified 10/03/25 15:33 droperidol Allergy Anaphylaxis Verified 10/03/25 15:33 ketorolac (From Toradol) Allergy Itching Verified 10/03/25 15:33 nitrofurantoin (From Allergy Anaphylaxis Verified 10/03/25 15:33 Macrodantin) NSAIDS (Non-Steroidal Allergy Other Verified 10/03/25 15:33 Anti-Inflamma oseltamivir (From Tamiflu) Allergy SOB Verified 10/03/25 15:33 doxycycline AdvReac Vomiting Verified 10/03/25 15:33 Family History Mother Hypertension Migraine Grandmother CVA (cerebral vascular accident) Grandfather Diabetes Father Myocardial infarction Surgical History History of cystoscopy S/P laparoscopic surgery History of hysterectomy Hx of cholecystectomy Social History household members: significant other housing: house Smoking Status: Current every day smoker tobacco type: e-cigarettes alcohol intake: current details: occasionally substance use type: does not use caffeine: Yes what type of physical activity do you participate in: walking frequency: 1-2 times per week seatbelt use: always do you feel safe at home: Yes additional social history: Single ROS ROS ED ROS Narrative see HPI EXAM Physical Exam Narrative Exam Narrative: Vital signs: Reviewed General: Alert and oriented x 3. No acute distress. Well-appearing, nontoxic. HEENT: Head is normocephalic and atraumatic, sinuses nontender, pupils equal round and reactive. Nares are patent. Oropharynx and throat exams normal. Neck: Supple without lymphadenopathy nontender Cardiovascular: Regular rate and rhythm, no murmurs. No rubs or gallops. Normal S1 and S2 Respiratory: Clear to auscultation bilaterally. No wheezes, rales, rhonchi Abdominal: Soft and very mildly tender to palpation in epigastric and left upper quadrants. Normal bowel sounds. No guarding or rebound. Nonsurgical abdomen. No CVA tenderness to palpation. Extremities: No tenderness. No bruising. Normal range of motion. Normal sensation. Skin: No rash or redness. Neurological: Cranial nerves II through XII are grossly intact. Normal strength and sensation. Normal cerebellar function The rest of the physical exam is unremarkable Const Vital Signs: 10/03/25 15:32 10/03/25 17:31 10/03/25 19:13 Temperature 99.7 F H 99.7 F H Temperature Source Oral Pulse Rate 124 H 107 H 107 H Respiratory Rate 16 18 18 Blood Pressure 151/105 H 145/102 H 145/102 H Blood Pressure Mean 120 116 116 Pulse Ox 99 97 97 Oxygen Delivery Method Room Air MDM MDM MDM Narrative Medical decision making narrative: Patient is a 35-year-old female presenting to the emergency department for koffi pain and reported fever at home. Patient was seen and examined. Vitals are stable. Patient resting in bed comfortably no acute distress. Differential includes but is not limited to: Pancreatitis, gastric reflux, constipation, colitis, diverticulitis, nephrolithiasis, pyelonephritis Patient has an allergy to Toradol which is itching and she tolerated it before in October, this will be given with Benadryl. Patient also given Zofran and Protonix for symptomatic control. Fluid bolus started. Patient asked nursing staff why she was not receiving morphine or Dilaudid. Nursing staff explained that this is what the doctor ordered. She asked to speak to me. I did speak with the patient with nurse at bedside and patient states that the doctor usually gives me morphine or Dilaudid for my symptoms. I explained that this is physician dependent and if she has any pathology on her labs or CT imaging she will be provided opiates but at this time only Toradol is being offered. Patient declines stating that it makes her itch which is why the Benadryl was ordered as explained. Patient's prior emergency department visits for chronic abdominal pain were reviewed. In her history of pancreatitis will obtain labs and CT imaging given she does have some mild tenderness to palpation on exam. CBC with no leukocytosis and a normal hemoglobin. CMP with no significant abnormalities, baseline mild transaminitis which has been seen previously and is actually slightly improved. Lipase within normal limits. Urinalysis with no evidence of urinary tract infection, appears contaminated with epithelial cells. CT of the abdomen shows no acute intra-abdominal pathology. Hepatic steatosis. Patient able to tolerate p.o. Patient and significant other at bedside were updated on the negative findings. Recommended follow-up with assignment desk editor as soon as possible. Patient discharged from the Emergency Department. I do not feel that the patient's evaluation reveals any acute reason for admission at this time. I instructed them to either follow-up with their primary care physician or promptly return to the Emergency Department for reevaluation should symptoms worsen or new symptoms develop. I explained what symptoms would indicate the need to return to the emergency department. Shared decision making was used. The patient voiced understanding of the treatment plan and is agreeable with it. Clinical impression Chronic abdominal pain History & Record Review Discussion w/independent historian: Patient and Significant other Additional record(s) reviewed:: Prior ED visit and Prior labs Lab Data Attestation: I reviewed the patient's lab results. Labs: Laboratory Results - last 24 hr 10/03/25 10/03/25 17:19 17:55 WBC 8.3 RBC 4.35 Hgb 13.6 Hct 39.5 MCV 90.8 MCH 31.3 MCHC 34.4 RDW Std Deviation 46.2 H RDW Coeff of Romario 13.8 Plt Count 272 MPV 10.9 Immature Gran % (Auto) 0.400 Neut % (Auto) 73.5 H Lymph % (Auto) 20.0 Terry % (Auto) 5.8 Eos % (Auto) 0.2 Baso % (Auto) 0.1 Absolute Neuts (auto) 6.1 Absolute Lymphs (auto) 1.65 Nucleated RBC % 0 Sodium 139 Potassium 3.8 Chloride 103 Carbon Dioxide 23.4 Anion Gap 13 BUN 12 Creatinine 0.66 L Estim Creat Clear Calc 127.54 Est GFR (MDRD) Non-Af 117 BUN/Creatinine Ratio 17.5 Glucose 125 H Calcium 9.7 Total Bilirubin 0.53 AST 37 H ALT 53 H Alkaline Phosphatase 139 H Total Protein 7.5 Albumin 4.3 Globulin 3.2 Albumin/Globulin Ratio 1.3 Lipase 28 Urine Color Yellow Urine Clarity Sl. Cloudy Urine pH 7.0 Ur Specific Coleman 1.010 Urine Protein 30 H Urine Glucose (UA) Normal Urine Ketones Negative Urine Occult Blood 10 H Urine Nitrite Negative Urine Bilirubin Negative Urine Urobilinogen 1 H Ur Leukocyte Esterase 25 H Urine RBC 0 SEEN Urine WBC 5-10 SEEN Ur Squamous Epith Cells 10-25 SEEN Calcium Oxalate Crystal 1+ Uric Acid Crystals 1+ Urine Bacteria 1+ Urine Mucus 0 SEEN Radiography Diagnostic Testing: Clinical Impression(s) from Imaging Studies Abdomen/Pelvis CT 10/03/25 16:42 IMPRESSION: No acute or active inflammatory intra-abdominal pathology. Hepatic steatosis. Status post cholecystectomy and hysterectomy. Reading Location: [facility] Discharge Plan Triage Chief Complaint: Abd Pain ED Provider: Faviola Rodarte Dx/Rx/DC Orders Clinical Impression: Chronic abdominal pain, Transaminitis Instructions: Abdominal Pain, ED Abdominal Pain Unkn Cause Fem Prescriptions: No Action Nurtec ODT 75 mg tablet,disintegrating 75 mg PO ONCE PRN (Reason: migraine headache) Rx Instructions: as a single dose Qulipta 60 mg tablet 60 mg PO QHS escitalopram oxalate [Lexapro] 20 mg Tablet 20 mg PO DAILY tizanidine 4 mg tablet 4 mg PO TID Patient Comments: PT STATES THAT THEY USUALLY TAKE ALL THREE TABLETS TOGETHER ONCE DAILY AT BEDTIME BECAUSE IT MAKES THEM DROWSY ( OF 10-28-23) metoclopramide HCl [Reglan] 5 mg tablet 5 mg PO Q6H PRN (Reason: nausea and vomiting) Qty: 20 0RF pantoprazole 40 mg tablet,delayed release (DR/EC) 40 mg PO BID oxycodone-acetaminophen [Percocet] 5-325 mg tablet 1 tab PO Q4H PRN (Reason: pain) Patient Comments: patient needs to get it filled, currently out but has not made it to her pharmacy to pick it up olanzapine 10 mg tablet,disintegrating 10 mg PO QHS amlodipine 2.5 mg tablet 2.5 mg PO DAILY mirabegron [Myrbetriq] 50 mg tablet extended release 24 hr 50 mg PO DAILY dicyclomine 20 mg tablet 20 mg PO 4X/DAY PRN PRN (Reason: abdominal pain) Creon 12,000-38,000 -60,000 unit capsule,delayed release(DR/EC) 1 cap PO TID nortriptyline 10 mg capsule 10 mg PO QHS promethazine [Promethegan] 12.5 mg suppository 12.5 mg [place] DAILY PRN (Reason: nausea and vomiting) polyethylene glycol 3350 [Miralax] 17 gram/dose powder 17 g PO DAILY PRN (Reason: constipation) Stand Alone Forms: ED Work / School Excuse Primary Care Provider: Dean Varghese Referrals: Dean Varghese, [Primary Care Provider, Medical] - As soon as possible Activity Restrictions/Additional Instructions: Follow-up with your GI doctor soon as possible. You can take Tylenol and Motrin at home for pain control. Your evaluation in the Emergency Department did not reveal any acute reason for admission. However, I want to emphasize that you may be early in the course of a disease process or illness even if it is not present. For this reason you should follow-up within 24 hours for reevaluation with either your primary care physician or if necessary back here in the Emergency Department. You should return to the Emergency Department immediately if your symptoms worsen or new symptoms develop. Print Language: Indonesian Disposition Disposition: Home, Self Care Discharge Date/Time: 10/03/25 19:14
== END 2025-10-03 19:14 | disposition home or self-care (01) ==
PROVIDERS: Emergency Provider Student in an Organized Health Care Education/Training Program; Visit Provider Student in an Organized Health Care Education/Training Program
DX: R10.9 Unspecified abdominal pain (principal); E78.00 Pure hypercholesterolemia, unspecified; F17.290 Nicotine dependence, other tobacco product, uncomplicated; I10 Essential (primary) hypertension; R74.01 Elevation of levels of liver transaminase levels; Z79.899 Other long term (current) drug therapy
CPT/HCPCS: 74177; 80053; 81001; 83690; 85025; 96361; 96365; 96375; 99283; Q9967; A4216; J2405